=== PATIENT | female | born 1950 ===

== ENCOUNTER → 2023-10-24 11:25 | Outpatient (BNV) | payer MEDICARE, SELFPAY | PROVIDERS: Visit Provider Internal Medicine Medical Oncology | DX: C34.92 Malignant neoplasm of unspecified part of left bronchus or lung (principal); Z85.3 Personal history of malignant neoplasm of breast; Z90.12 Acquired absence of left breast and nipple; Z92.3 Personal history of irradiation | CPT/HCPCS: 99204; 99213; 99214 ==

== ENCOUNTER 2023-11-14 13:40 | Inpatient (IN) | payer MEDICARE, MEDICAID, SELFPAY ==
[2023-11-14] VITALS (10 sets, daily range): BP systolic 140–175; BP diastolic 50–83; PULSE 55–62; RESP 10–18; TEMP 36.6–36.9; O2SAT 99–100; BMI 31.3
--- NOTE | ~2023-11-14 | XR_ITS ---
EXAMINATION: XR CHEST CLINICAL INFORMATION: Shortness of breath COMPARISON: None available. TECHNIQUE: Frontal view of the chest was obtained. FINDINGS: No significant abnormality is noted involving the heart, lungs, mediastinum, bony thorax or soft tissues. XR/XR chest 1V IMPRESSION: Unremarkable examination. Electronically signed by: Pamella Zapien MD 11/14/2023 02:51 PM EDT
--- NOTE | 2023-11-14 13:56 | ED_ITS ---
HPI - General Adult General Chief complaint: Recheck/Abnormal Lab/Rx Stated complaint: critical labs Time Seen by Provider: 11/14/23 13:55 Source: patient and EMS Mode of arrival: EMS Limitations: no limitations History of Present Illness ED Provider: Hien Morin PA-C HPI narrative: Patient is a 72 year old assigned female at with a history of anxiety, CKD, HLD, HTN, lung cancer, breast cancer, hepatitis C, and chronic oxygenation presenting to the emergency department today with abnormal labs. Patient states that she follows with Dr. Jesus for monthly chemo for her lung cancer. Patient states that she was told her blood counts are low today. Patient states that she is in chronic chest pain that she gets dilaudid for. Patient states that she has been anemic before and needed blood transfusions. Patient denies any dizziness, lightheadedness, abdominal pain, nausea, vomiting, fever, chills, blurry vision, double vision, loss of vision, new chest pain, difficulty breathing, shortness of breath, back pain, night sweats, pain with urination, increased urinary frequency, increased urinary urgency, blood in her urine or stool, syncope or a near syncopal episode, recent trauma or falls, bowel incontinence, bladder incontinence, or any other complaints at this time. Relieving factors: none Exacerbating factors: none Associated symptoms: denies other symptoms Treatments prior to arrival: none Related Data Allergies Allergy/AdvReac Type Severity Reaction Status Date / Time carisoprodol [From Soma] Allergy Rash Verified 11/14/23 13:51 codeine Allergy Itching Verified 11/14/23 13:51 Review of Systems 2 Constitutional: Constitutional: Reports no additional constitutional complaints, Denies chills, Denies fever(s) and Denies night sweats Eyes: Eyes: Reports no additional eye complaints, Denies blurry vision, Denies change in vision, Denies diplopia, Denies eye discharge, Denies loss of vision and Denies eye pain ENT: Denies dizziness Cardiovascular: Cardiovascular: Reports no additional cardiovascular complaints, Reports chest pain (chronic), Denies lightheadedness, Denies Loss of Consciousness and Denies dyspnea Respiratory: Respiratory: Reports no additional respiratory complaints and Denies dyspnea Comments: on oxygen via nasal canula per baseline Gastrointestinal: Gastrointestinal: Reports no additional gastrointestinal complaints, Denies abdominal pain, Denies melena, Denies hematochezia, Denies change in bowel habits and Denies change in stool character Genitourinary: Genitourinary: Denies hematuria, Denies urinary frequency, Denies dysuria, Denies urinary incontinence, Denies urinary hesitancy and Denies urinary urgency Musculoskeletal: Musculoskeletal: Reports no additional musculoskeletal complaints, Denies numbness and Denies tingling Neurologic: Denies dizziness, Denies loss of vision, Denies numbness and Denies tingling Psychiatric: Psychiatric: Reports no additional psychiatric complaints Endocrine: Endocrine: Reports no additional endocrine complaints Hematologic/Lymphatic: Hematologic/Lymphatic: Reports no additional hematologic/lymphatic complaints Allergic/Immunologic: Allergic/Immunologic: Reports no additional allergic/immunologic complaints [facility] Past Medical History Attestation statement: The following information was validated with the patient. Source: old records reviewed and nursing notes reviewed Social History Social History Alcohol intake: former Smoked in Last 30 Days: No Use of substances other than those prescribed or required for medical reasons: No Advance Directives: No Advance Directives Information Provided: No Do you have a plan to hurt others: No Plan Physical Exam ED Vital Signs: Vital Signs - 24 hr 11/14/23 13:44 11/14/23 13:53 Temperature 98.2 F 98.2 F Pulse Rate 55 55 Respiratory Rate 18 18 Blood Pressure 163/63 H 163/63 H Pulse Oximetry 100 100 Oxygen Delivery Method Nasal Cannula Nasal Cannula BMI result Body Mass Index 30.0 Const General: cooperative, no acute distress, alert and awake Nutritional Appearance: well nourished Orientation/consciousness: patient oriented x3 Limitations: no limitations HENNE Other: thin wisps of hair Head: Yes normal to inspection and Yes atraumatic Ears: hearing grossly normal bilaterally and external ears normal General nose exam: Normal external nose present, no nasal discharge noted and no epistaxis Face and sinus: Yes normal facial exam, No abrasion and No laceration Mouth: Normal oral and palatal mucosa present, no drooling and no muffled voice Eyes General: appearance normal, both eyes and all related structures Periorbital: periorbital findings normal Eyelids: Yes eyelids normal Conjunctivae: conjunctivae normal Pupils: Equal, round and reactive pupils present EOM: EOMs intact bilaterally Neck Neck: Yes normal visual inspection, Yes full ROM and Yes no lymphadenopathy Chest Chest palpation & inspection: normal inspection of the chest Resp Other: on oxygenation via nasal canula - chronic Effort & Inspection: normal respiratory effort and able to speak in complete sentences GI Inspection: Yes normal to inspection Neuro General: patient oriented x3 and moves all extremities Cranial nerves: Yes Equal, round and reactive pupils present Cognition (Neuro): normal cognition Extrem General: Yes normal to inspection, Yes full ROM and Yes capillary refill normal Psych Appearance: grossly normal Mental Status: mental status grossly normal Affect: normal affect Attitude: cooperative Thought process: Normal thought process present Thought content: Normal thought content present Insight: Good insight present (Psych) Medications Administered Discontinued Medications Generic Name Dose Route Start Last Admin Trade Name Freq PRN Reason Stop Dose Admin Hydromorphone HCl 1 mg 11/14/23 14:44 11/14/23 14:51 Hydromorphone Hcl 1 Mg/Ml Syringe IVPUSH 11/14/23 14:45 1 mg ONCE ONE Administration Protocol Medical Decision Making Medical Decision Making MDM Narrative: Patient is a 72 year old assigned female at with a history of anxiety, CKD, HLD, HTN, lung cancer, breast cancer, hepatitis C, and chronic oxygenation presenting to the emergency department today with abnormal labs. Patient's blood work showed multiple abnormalities including a WBC count of 0.8, HGB of 5.7, HCT of 17.7, PLT of 27, CR of 2.23, BUN of 56. Patient's EKG was unremarkable. Patient's chest x-ray showed no acute process. I spoke to Dr. Jesus who agreed to blood transfusion with non irradiated blood. I spoke to the hospitalist team who agreed to admission. Patient was given a unit of blood while in the department. I explained my physical exam findings as well as all test results to the patient. I answered all questions asked by the patient. Patient verbalized agreement and understanding with this treatment plan and admission. Differential Diagnosis Differential Diagnoses: The differential diagnosis associated with the presentation includes Anemia requiring transfusion Admission/Observation Consideration of admission/observation: Escalation of care including admission/observation considered Patient admitted. Consult Healthcare Provider Management of the patient was discussed with: Hospitalist (agreed to admission as noted in the MDM Rationale portion of this note.) and Personal Lines Account Executive (spoke to Dr. Jesus as noted in the MDM Rationale portion of this note.) Lab Data [facility] Lab Attestation statement: I reviewed the patient's lab results. My interpretation of these results are in the MDM Rationale portion of this note. 11/14/23 14:13 11/14/23 14:13 Labs: Lab Results 11/14/23 11/14/23 Range/Units 14:13 14:28 WBC 0.8 L* (4.8-10.8) X10*3/uL RBC 2.05 L (4.20-5.50) X10*6/uL Hgb 5.7 L* (12.0-16.0) g/dl Hct 17.7 L* (37.0-47.0) % MCV 86.3 (80.0-98.0) fL MCH 27.8 (27.0-33.0) pg MCHC 32.2 (31.0-35.0) g/dl RDW 14.4 (11.0-16.0) % Plt Count 27 L (160-400) X10*3/uL MPV 11.6 (9.4-12.3) fL Immature Gran % (Auto) Cancelled Neut % (Auto) Cancelled Lymph % (Auto) Cancelled [place] % (Auto) Cancelled Eos % (Auto) Cancelled Baso % (Auto) Cancelled Lymph # (Auto) Cancelled [place] # (Auto) Cancelled Eos # (Auto) Cancelled Baso # (Auto) Cancelled Abs Immat Gran (auto) Cancelled Absolute Neuts (auto) Cancelled Absolute Nucleated RBC 0.000 (0.0-0.012) X10*3/uL Nucleated RBC % (auto) 0.0 (0.0-0.2) /100WBC Neutrophils % (Manual) 6 L (45-73) % Band Neutrophils % 4 (3-5) % Lymphocytes % (Manual) 84 H (20-40) % Eosinophils % (Manual) 6 H (0-4) % Abs Neuts (Manual) 0.1 L (2.0-8.3) X10*3/uL Lymphocytes # (Manual) 0.7 L (1.2-4.9) X10*3/uL Dohle Bodies PRESENT Platelet Estimate DECREASED (NORMAL) Plt Morphology Comment NORMAL RBC Morphology NOTED Hypochromasia 1+ (5-14) /OIF PT 12.8 (11.1-13.3) SEC INR 1.1 (0.9-1.1) APTT 30.0 (26.0-36.8) SEC Sodium 139 (135-145) mmol/L Potassium 4.7 (3.3-5.1) mmol/L Chloride 112 H (96-108) mmol/L Carbon Dioxide 21 L (22-29) mmol/L Anion Gap 11 L (12-20) BUN 56 H (9-16) mg/dL Creatinine 2.23 H (0.5-1.4) mg/dL Estim Creat Clear Calc 19.2 Estimated GFR 21 Random Glucose 108 (60-115) mg/dL Calcium 9.3 (8.4-10.2) mg/dL Magnesium 2.0 (1.6-2.6) mg/dL Total Bilirubin 0.2 (0.0-1.0) mg/dL AST 9 (5-31) U/L ALT 7 (0-31) U/L Alkaline Phosphatase 61 (39-117) U/L Total Protein 5.1 L (6.5-8.0) g/dL Albumin 2.7 L (3.5-5.0) g/dL Influenza Type A (PCR) NEGATIVE (Negative) Influenza Type B (PCR) NEGATIVE (Negative) RSV RNA Qual (PCR) NEGATIVE (Negative) SARS-CoV-2 RNA (RT-PCR) NEGATIVE (Negative) Blood Type A Positive Antibody Screen NEGATIVE Crossmatch See Detail Independent Interpretation I performed an independent interpretation of an: EKG and Plain X-Ray Interpretation: My interpretation is in agreement with the radiologist's impression of this imaging study. - EXAMINATION: XR CHEST CLINICAL INFORMATION: Shortness of breath COMPARISON: None available. TECHNIQUE: Frontal view of the chest was obtained. FINDINGS: No significant abnormality is noted involving the heart, lungs, mediastinum, bony thorax or soft tissues. XR/XR chest 1V IMPRESSION: Unremarkable examination. Electronically signed by: Pamella Zapien MD 11/14/2023 02:51 PM EDT RP Dictated By: Pamella Zapien MD Signed By: Electronically signed by Pamella Zapien MD 11/14/23 1451 - Vent. Rate: 057 BPM Atrial Rate: 057 BPM P-R Int: 148 ms QRS Dur: 110 ms QT Int: 446 ms P-R-T Axes: 067 013 025 degrees QTc Int: 434 ms Sinus bradycardia Left ventricular hypertrophy with repolarization abnormality ( R in aVL , [place] product ) Abnormal ECG No previous ECGs available Electronically Signed By:LYNN COHN Dictated By: Lynn Hicks DO Signed By: Electronically signed by Lnyn Hicks DO 11/14/23 1456 Radiology Impression Discussion of test interpretation with radiology: I have reviewed the radiologist's reading. Independent Historian Clinical information obtained from an independent historian. History obtained from or confirmed by: EMS (EMS provided additional history and confirmed the history provided by the patient.) Critical Care Time Critical Care Time Critical Care Time: Yes Total Critical Care Time: 52 Attestation: I spent 52 minutes of Critical Care Time with this patient. This does not include time spent on separately reported billable procedures. Discharge Plan Discharge Clinical Impression: Anemia, Leukopenia Patient Disposition: Admitted As Inpatient Print Language: Hungarian
--- NOTE | 2023-11-14 13:59 | ECG_ITS ---
Test Reason : weakness Blood Pressure : / mmHG Vent. Rate : 057 BPM Atrial Rate : 057 BPM P-R Int : 148 ms QRS Dur : 110 ms QT Int : 446 ms P-R-T Axes : 067 013 025 degrees QTc Int : 434 ms Sinus bradycardia Left ventricular hypertrophy with repolarization abnormality ( R in aVL , [place] product ) Abnormal ECG No previous ECGs available Referred By: Hien Morin Electronically Signed By:LYNN GEORGE
[2023-11-14 14:25] LABS: Mean Corpuscular HGB Conc 32.2 g/dl (31.0-35.0); Mean Corpuscular Hemoglobin 27.8 pg (27.0-33.0); Mean Corpuscular Volume 86.3 fL (80.0-98.0); Mean Platelet Volume 11.6 fL (9.4-12.3); Red Blood Count 2.05 X10*6/uL (4.20-5.50); Red Cell Distribution Width 14.4 % (11.0-16.0)
[2023-11-14 14:30] LABS: INTERNATIONAL NORM RATIO 1.1 (0.9-1.1); Prothrombin Time 12.8 SEC (11.1-13.3)
[2023-11-14 14:33] LABS: Hematocrit 17.7 % (37.0-47.0); Platelet Count 27 X10*3/uL (160-400); WBC ABN SCTR FOR CBC 1
[2023-11-14 14:34] LABS: Hemoglobin 5.7 g/dl (12.0-16.0)
[2023-11-14 14:39] LABS: Alanine Aminotransferase 7 U/L (0-31); Albumin Level 2.7 g/dL (3.5-5.0); Alkaline Phosphatase 61 U/L (39-117); Anion Gap 11 (12-20); Aspartate Amino Transferase 9 U/L (5-31); Bilirubin Total 0.2 mg/dL (0.0-1.0); Blood Urea Nitrogen 56 mg/dL (9-16); Calcium 9.3 mg/dL (8.4-10.2); Carbon Dioxide 21 mmol/L (22-29); Chloride 112 mmol/L (96-108); Creatinine Clr Calc Pharmacy 19.2; Estimated Glomerular Filt Rate 21; Glucose Random 108 mg/dL (60-115); Potassium 4.7 mmol/L (3.3-5.1); Sodium 139 mmol/L (135-145); Total Protein 5.1 g/dL (6.5-8.0)
[2023-11-14 14:43] LABS: White Blood Count 0.8 X10*3/uL (4.8-10.8)
[2023-11-14 14:51] LABS: Band Neutrophils Percent 4 % (3-5); Eosinophils Percent Manual 6 % (0-4); Lymphocytes Absolute Manual 0.7 X10*3/uL (1.2-4.9); Lymphocytes Percent Manual 84 % (20-40); Neutrophils Absolute Manual 0.1 X10*3/uL (2.0-8.3); Neutrophils Percent Manual 6 % (45-73)
[2023-11-14] MEDS: HYDROmorphone HCl 1 MG/ML SYRINGE IVPUSH ×2 (14:51→16:54)
[2023-11-14 14:52] LABS: RBC Morphology NOTED
[2023-11-14 14:53] LABS: Dohle Bodies PRESENT; Hypochromasia 1+ (5-14) /OIF; Platelet Estimate DECREASED (NORMAL); Platelet Morphology Comment NORMAL
[2023-11-14 15:10] LABS: Influenza A PCR NEGATIVE (Negative); Influenza B PCR NEGATIVE (Negative); Resp Syncy Virus RNA Qual PCR NEGATIVE (Negative); SARS COV2 PCR INHOUSE NEGATIVE (Negative)
--- NOTE | 2023-11-14 15:47 | PM.IMHP ---
History of Present Illness Date of Service: 11/14/23 Attending physician on admission: Brooke Chou Chief Complaint: Abnormal labs Pt is a 72-year-old female with a PMH significant for small cell lung cancer, chronic chest pain on chronic hydromorphone, breast cancer s/p partial mastectomy and radiation, HTN, CKD 4, and IBS/chronic diarrhea who presents to the ED from [facility] after routine labs found significant pancytopenia. Pt was recently diagnosed with extensive small cell lung cancer 4 months prior and started on chemotherapy of carboplatin, etoposide, and atezolizumab with last treatment on 11/04. Previously followed with [facility] oncology but recently switched to [facility] due to insurance issues. Follows with Dr. Jesus. Patient states has been urinating more than normal and feeling some urinary pressure , though denies dysuria. Otherwise feels ?good? without acute medical complaints. Has had chronic diarrhea for the past 7 years, at baseline. Chronic SOB, cough, and right-sided chest pain at baseline. No fever, chills, N/V. Denies headache, lightheadedness, or dizziness. Denies hematochezia, melena, hematemesis, or hemoptysis. Of note, patient reports she was hospitalized a few months ago at [facility] for transfusion after starting her current chemotherapy. In the ED pt was hypertensive up to 163/63 in the HR of 55. Labs were significant for leukopenia of 0.8, H&H of 5.7/17.7, platelets 27, BUN 56, creatinine 2.23, protein 5.1, and albumin 2.7. Tested negative for flu, RSV, and COVID. CXR showed no acute cardiopulmonary process. EKG demonstrated sinus bradycardia of 57 with left ventricular hypertrophy. Pt was treated with hydromorphone and transfused 1 unit PRBCs. Pt will be admitted to the hospital for treatment and further evaluation of pancytopenia requiring transfusion in the setting of chemotherapy. Review of Systems Review of Systems: Polyuria, urinary pressure Denies dysuria Chronic SOB and cough at baseline Chronic diarrhea at baseline Chronic right-sided chest pain at baseline No fever, chills, N/V or abd pain Denies lgihtheadedness or dizziness No hematemesis, hemoptysis, hematochezia, or melena [facility] Medical History (Updated 11/14/23 @ 18:31 by BRANDON Nair) Chronic diarrhea CKD (chronic kidney disease) Breast cancer HTN (hypertension) Social History Alcohol intake: former Meds Allergies Allergy/AdvReac Type Severity Reaction Status Date / Time carisoprodol [From Soma] Allergy Rash Verified 11/14/23 13:51 codeine Allergy Itching Verified 11/14/23 13:51 Home Medications ?Medication ?Instructions ?Recorded ?Confirmed ?Last Taken ?Type acetaminophen 325 mg tablet 650 mg PO Q8H PRN Pain 11/14/23 11/14/23 Unknown History aspirin 81 mg tablet,delayed 81 mg PO DAILY 11/14/23 11/14/23 Unknown History release bisacodyl 10 mg rectal suppository 10 mg LA DAILY PRN Constipation 11/14/23 11/14/23 Unknown History carvedilol 12.5 mg tablet 12.5 mg PO BID 11/14/23 11/14/23 Unknown History folic acid 1 mg tablet 1 mg PO DAILY 11/14/23 11/14/23 Unknown History hydralazine 100 mg tablet 100 mg PO BID 11/14/23 11/14/23 Unknown History hydromorphone 2 mg tablet 1 mg PO Q4H PRN Pain, Moderate 11/14/23 11/14/23 Unknown History hydromorphone 2 mg tablet 2 mg PO Q4H PRN Pain, Severe 11/14/23 11/14/23 Unknown History ipratropium 0.5 mg-albuterol 3 mg 3 ml inhalation Q4H PRN Shortness 11/14/23 11/14/23 Unknown History (2.5 mg base)/3 mL nebulization Of Breath soln ipratropium 0.5 mg-albuterol 3 mg 3 ml inhalation QID 11/14/23 11/14/23 Unknown History (2.5 mg base)/3 mL nebulization soln loperamide 2 mg capsule 2 mg PO Q3H PRN Loose Stool 11/14/23 11/14/23 Unknown History magnesium hydroxide 400 mg/5 mL 30 ml PO DAILY PRN Constipation 11/14/23 11/14/23 Unknown History oral suspension (Milk of Magnesia) ondansetron HCl 8 mg tablet 8 mg PO Q8H PRN Nausea And Vomiting 11/14/23 11/14/23 Unknown History polyethylene glycol 3350 17 17 g PO DAILY 11/14/23 11/14/23 Unknown History gram/dose oral powder (Miralax) sennosides 8.6 mg tablet (senna) 17.2 mg PO BEDTIME 11/14/23 11/14/23 Unknown History sodium phosphates 19 gram-7 118 ml LA DAILY PRN Constipation 11/14/23 11/14/23 Unknown History gram/118 mL enema (Fleet Enema) thiamine HCl (vitamin B1) 100 mg 100 mg PO DAILY 11/14/23 11/14/23 Unknown History tablet trazodone 100 mg tablet 100 mg PO BEDTIME 11/14/23 11/14/23 Unknown History trazodone 50 mg tablet 50 mg PO BEDTIME 11/14/23 11/14/23 Unknown History Physical Exam Vital Signs and Narrative: Vital Signs: Last Vital Signs Temp 98.2 F 11/14/23 13:53 Pulse 55 11/14/23 13:53 Resp 18 11/14/23 13:53 BP 163/63 H 11/14/23 13:53 Pulse Ox 100 11/14/23 13:53 O2 Del Method Nasal Cannula 11/14/23 13:53 Oxygen Flow Rate 2 11/14/23 13:44 BMI result Body Mass Index 30.0 General: AOx3, no acute distress Resp: Lungs diffusely coarse bilaterally, diminished. CVS: S1, S2, RRR GI: +BS, NT, no distention Skin: Warm, dry Neuro: Cranial nerves II-XII grossly intact bilaterally. Motor grossly intact bilaterally Extremities: No edema Psych: Appropriate affect Results Labs 11/14/23 14:13 11/14/23 14:13 Labs: Laboratory Results - last 24 hr 11/14/23 11/14/23 14:13 14:28 MCV 86.3 MCH 27.8 MCHC 32.2 RDW 14.4 Plt Count 27 L MPV 11.6 Immature Gran % (Auto) Cancelled Neut % (Auto) Cancelled Lymph % (Auto) Cancelled [place] % (Auto) Cancelled Eos % (Auto) Cancelled Baso % (Auto) Cancelled Lymph # (Auto) Cancelled [place] # (Auto) Cancelled Eos # (Auto) Cancelled Baso # (Auto) Cancelled Abs Immat Gran (auto) Cancelled Absolute Neuts (auto) Cancelled Absolute Nucleated RBC 0.000 Nucleated RBC % (auto) 0.0 Neutrophils % (Manual) 6 L Band Neutrophils % 4 Lymphocytes % (Manual) 84 H Eosinophils % (Manual) 6 H Abs Neuts (Manual) 0.1 L Lymphocytes # (Manual) 0.7 L Dohle Bodies PRESENT Platelet Estimate DECREASED Plt Morphology Comment NORMAL RBC Morphology NOTED Hypochromasia 1+ (5-14) PT 12.8 INR 1.1 APTT 30.0 Anion Gap 11 L Estim Creat Clear Calc 19.2 Estimated GFR 21 Random Glucose 108 Calcium 9.3 Magnesium 2.0 Total Bilirubin 0.2 AST 9 ALT 7 Alkaline Phosphatase 61 Total Protein 5.1 L Albumin 2.7 L Influenza Type A (PCR) NEGATIVE Influenza Type B (PCR) NEGATIVE RSV RNA Qual (PCR) NEGATIVE SARS-CoV-2 RNA (RT-PCR) NEGATIVE Blood Type A Positive Antibody Screen NEGATIVE Crossmatch See Detail Imaging Radiologist's Impressions: Impressions Chest X-Ray 11/14/23 13:59 IMPRESSION: Unremarkable examination. Electronically signed by: Pamella Zapien MD 11/14/2023 02:51 PM EDT RP Assessment and Plan (1) Small cell carcinoma of lung: Status: Acute (2) Pancytopenia: Status: Acute Plan Pt is a 72-year-old female with a PMH significant for small cell lung cancer, chronic chest pain on chronic hydromorphone, breast cancer s/p partial mastectomy and radiation, HTN, CKD 4, and IBS/chronic diarrhea who presents to the ED from [facility] after routine labs found significant pancytopenia. Pt will be admitted to the hospital for treatment and further evaluation of pancytopenia requiring transfusion in the setting of chemotherapy. Pancytopenia WBCs 0.8, H&H 5.7/17.7, neutrophils 6 Absolute neutrophil count: 80 cells/microliter Secondary to chemotherapy for small cell lung cancer, follows with Dr. Jesus On carboplatin, etoposide, and atezolizumab with last infusion 11/04 Reports 1 prior hospitalization at [facility] 2 months ago for transfusion Patient asymptomatic, no reported bleeding, denies fever, cough, abdominal pain No indication for antibiotics at this time Transfused 2 units of PRBCs in the ED Oncology consult Neutropenic precautions Follow CBC Polyuria Pt complains of polyuria and urinary pressure Denies dysuria Check UA which is pending Chronic chest pain Secondary to small cell lung cancer Continue home p.o. hydromorphone HTN Continue carvedilol, hydralazine COPD Not in acute exacerbation Continue home inhalers Chronic diarrhea Continue loperamide Full Code Attending:?Dr. Chou DVT Prophylaxis: Pneumatic compression due to pancytopenia. Pt will require a hospitalization of at least two nights for treatment of?pancytopenia secondary to chemotherapy for non-small cell lung cancer that will require transfusions, close monitoring of labs, and neutropenic precautions. Quality Stroke Does the patient have a stroke diagnosis?: No VTE Prior VTE?: No VTE Risk Level:: Medical - moderate - high VTE Device Contraindication: N/A - Device Ordered VTE Drug Contraindication: Treatment Not Indicated
--- NOTE | 2023-11-14 16:32 | PHA.MEDREC ---
Addendum entered by Liane Baldwin RPh 11/14/23 16:42: Reviewed by [facility] Original Note: Pharmacy Consult ? Medication Reconciliation Pharmacy has completed the medication reconciliation. Utilized claims and list from [facility] to confirm med list.
--- NOTE | 2023-11-14 18:01 | PM.HEMONCCN ---
Subjective - Subjective Chief complaint: Consult for: Neutropenia. Anemia. Small-cell lung carcinoma Patient: known to practice within the last 3 years Consult date: 11/14/23 Requesting Physician: Fox Primary Care Provider: Unknown Physician Family Provider: Eleazar Le Medical Summary: DIAGNOSIS: SMALL-CELL CARCINOMA OF THE LUNG. NEUTROPENIA. ANEMIA. HPI - Consult Narrative Reason for consult: Consult for: Small-cell carcinoma of the lung. Leukopenia. Anemia. Narrative: Anna Crawford is a 72 year old unfortunate lady with a PMH of small cell lung cancer, who received carboplatin, etoposide and atezolizumab on 11/04. She was noted to be hypertensive up to 163/63 in the HR of 55. DATABASE: Leukopenia of 0.8, H&H of 5.7/17.7, platelets 27, CMP: BUN 56, creatinine 2.23, protein 5.1, and albumin 2.7. Negative for flu, RSV, and COVID. CXR showed no acute cardiopulmonary process. EKG demonstrated sinus bradycardia of 57 with left ventricular hypertrophy. Pt was treated with hydromorphone and transfused 1 unit PRBCs. Pt is being admitted to the hospital. PAST MEDICAL HISTORY: SMALL-CELL CARCINOMA OF THE LUNG: She was originally admitted to [facility] in August. She was discharged on 08/27 due to insurance issues, she was not able to follow-up with [facility]. She was referred to [facility] but could not make it to the appointment. On 09/17 she presented to [facility] ED with worsening shortness of breath. She also complained of severe left-sided chest pain. She had chronic diarrhea. Chest x-ray showed increased opacification of the left chest consistent with major consolidation of the left upper lobe with left pleural effusion. She had chest tube placed. She was placed on BiPAP given respiratory distress. She was admitted to [facility] 09/18/2023 with shortness of breath. CT scan revealed: No evidence of PE. New small right apical pneumothorax. Slightly improved aeration the left upper lobe with persistent masslike opacity and surrounding patchy and ground-glass opacities, consistent with known carcinoma. Narrowing of the left upper lobe bronchus and segmental airways likely due to encasement by the mask. Near resolution of the left pleural effusion status post left pleural drainage catheter. Increasing mediastinal and bilateral supraclavicular adenopathy concerning for progression of disease. Pleural fluid cytology was positive for small-cell carcinoma. She underwent chemotherapy with Carbo and etoposide while inpatient in mid September. 2. HYPERTENSION. 3. DIABETES. 4. CKD. 5. ASTHMA. 6. HCV. 7. HISTORY OF RIGHT BREAST CANCER STATUS POST PARTIAL MASTECTOMY IN 2016. STATUS POST XRT COMPLET[place] [address] Apple.. 8. Previous history of squamous cell carcinoma of the right lung. 9. Had COVID infection end of August. 10. Chronic chest pain on chronic hydromorphone, 11. Breast cancer, 12. HLD, 13. Chronic diarrhea who presents to the ED from [facility] HISTORY: Noncontributory. SOCIAL HISTORY: She did different or jobs. 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 She is not . She has 1 son. She smoked a pack-a-day starting age 18. She quit 2 years ago. She used to drink when she went out with her friends. ROS: She has been feeling really fatigued. She does walk sometimes with and sometimes without the help of a walker. No fever chills or night sweats. No headache no dizziness. She does get chest pain and trouble breathing. She does cough up yellow sputum. Denies abdominal pain nausea vomiting heartburn indigestion. Bowels sometimes gets constipated. No gross blood in the stools. Appetite is not so good. She is trying to eat. She has lost weight. No dysuria or hematuria. No joint pain or muscle pain. She denies any focal weakness. Review of Systems - Constitutional Reports no additional constitutional complaints, Reports lack of energy, Reports weight loss - Eyes Reports no additional eye complaints - ENT Reports no additional ear, nose, mouth, and throat complaints - Cardiovascular Reports no additional cardiovascular complaints - Respiratory Reports no additional respiratory complaints - Gastrointestinal Reports no additional gastrointestinal complaints - Genitourinary Reports no additional female genitourinary complaints - Musculoskeletal Reports no additional musculoskeletal complaints - Integumentary/Breasts Skin/Breast: Reports no additional skin complaints - Neurologic Denies dizziness, Denies loss of vision, Denies numbness, Denies tingling - Psychiatric Reports no additional psychiatric complaints - Endocrine Reports no additional endocrine complaints - Hematologic/Lymphatic Reports no additional hematologic/lymphatic complaints - Allergic/Immunologic Reports no additional allergic/immunologic complaints Oncology Screenings - ECOG Performance Status ECOG Performance Status: 2 [facility] Medical History: Medical History (Last Reviewed 11/15/23 @ 11:20 by Gisel Hendrickson PT) Breast cancer Chronic diarrhea CKD (chronic kidney disease) HTN (hypertension) Social History: Social History (Last Reviewed 11/14/23 @ 15:32 by BRANDON Schneider) Living Situation History: Household Members: Spouse Housing: Shelter Do you presently have visiting nurse or other home services: No Tobacco History: Patient Tobacco Use Status: Former Tobacco user Tobacco use type: Cigarette e-Cigarette/Vaping Use: Never Used Second Hand Smoke Exposure: No Occupation Assessmet: service: No Home Medications and Allergies Current Medications: Current Medications Acetaminophen (Acetaminophen 325 Mg Tablet) 650 mg PO Q6H PRN PRN Reason: Pain, Mild (Pain Scale 1-3), fever or headache Albuterol/Ipratropium (Albuterol/Iprat 2.5/0.5mg 3 Ml Ampul.Neb) 3 ml INHALE Q4H PRN PRN Reason: Shortness Of Breath Albuterol/Ipratropium (Albuterol/Iprat 2.5/0.5mg 3 Ml Ampul.Neb) 3 ml INHALE QID [facility] Aspirin (Aspirin Enteric Coated 81 Mg Tablet.Dr) 81 mg PO DAILY [facility] Benzonatate (Benzonatate 100 Mg Capsule) 100 mg PO TID PRN PRN Reason: Cough Bisacodyl (Bisacodyl 10 Mg Supp.Rect) 10 mg AK DAILY PRN PRN Reason: Constipation Calcium Carbonate (Calcium Carbonate 750 Mg Tab.Chew) 750 mg PO Q4H PRN PRN Reason: Heartburn Carvedilol (Carvedilol 12.5 Mg Tablet) 12.5 mg PO BID [facility]; Protocol Folic Acid (Folic Acid 1 Mg Tablet) 1 mg PO DAILY [facility] Hydralazine HCl (Hydralazine Hcl 50 Mg Tablet) 100 mg PO BID [facility]; Protocol Hydromorphone HCl (Hydromorphone Hcl 2 Mg Tablet) 1 mg PO Q4H PRN PRN Reason: Pain, Moderate(Pain Scale 4-6) Hydromorphone HCl (Hydromorphone Hcl 2 Mg Tablet) 2 mg PO Q4H PRN PRN Reason: Pain, Severe (Pain Scale 7-10) Loperamide HCl (Loperamide Hcl 2 Mg Capsule) 2 mg PO Q3H PRN PRN Reason: Loose Stool Magnesium Hydroxide (Milk Of Magnesia 30 Ml Oral.Susp) 30 ml PO DAILY PRN PRN Reason: Constipation Magnesium Hydroxide (Milk Of Magnesia 30 Ml Oral.Susp) 30 ml PO DAILY PRN PRN Reason: Constipation Melatonin (Melatonin 3 Mg Tablet) 6 mg PO BEDTIME PRN PRN Reason: Insomnia Ondansetron HCl (Ondansetron Hcl 4 Mg/2 Ml Vial) 4 mg IVPUSH Q8H PRN PRN Reason: Nausea and Vomiting Polyethylene Glycol (Polyethylene Glycol 3350 17 Gm Powd.Pack) 17 gm PO DAILY [facility] Senna (Sennosides 8.6 Mg Tablet) 17.2 mg PO BEDTIME SADE Sodium Biphosphate/Sodium Phosphate (Sodium Phosphate,[place]-Dibasic 133 Ml Enema) 118 ml AK DAILY PRN PRN Reason: Constipation Sodium Chloride (0.9 % Sodium Chloride Flush 3 Ml Syringe) 3 ml IVFLUSH QSHIFT SADE Thiamine HCl (Thiamine Hcl 100 Mg Tablet) 100 mg PO DAILY [facility] Trazodone HCl (Trazodone Hcl 50 Mg Tablet) 50 mg PO BEDTIME SADE Trazodone HCl (Trazodone Hcl 100 Mg Tablet) 100 mg PO BEDTIME [facility] Home Medications ?Medication ?Instructions ?Recorded ?Confirmed ?Type acetaminophen 325 mg tablet 650 mg PO Q8H PRN Pain 11/14/23 11/14/23 History aspirin 81 mg tablet,delayed 81 mg PO DAILY 11/14/23 11/14/23 History release bisacodyl 10 mg rectal suppository 10 mg AK DAILY PRN Constipation 11/14/23 11/14/23 History carvedilol 12.5 mg tablet 12.5 mg PO BID 11/14/23 11/14/23 History folic acid 1 mg tablet 1 mg PO DAILY 11/14/23 11/14/23 History hydralazine 100 mg tablet 100 mg PO BID 11/14/23 11/14/23 History hydromorphone 2 mg tablet 1 mg PO Q4H PRN Pain, Moderate 11/14/23 11/14/23 History hydromorphone 2 mg tablet 2 mg PO Q4H PRN Pain, Severe 11/14/23 11/14/23 History ipratropium 0.5 mg-albuterol 3 mg 3 ml inhalation Q4H PRN Shortness 11/14/23 11/14/23 History (2.5 mg base)/3 mL nebulization Of Breath soln ipratropium 0.5 mg-albuterol 3 mg 3 ml inhalation QID 11/14/23 11/14/23 History (2.5 mg base)/3 mL nebulization soln loperamide 2 mg capsule 2 mg PO Q3H PRN Loose Stool 11/14/23 11/14/23 History magnesium hydroxide 400 mg/5 mL 30 ml PO DAILY PRN Constipation 11/14/23 11/14/23 History oral suspension (Milk of Magnesia) ondansetron HCl 8 mg tablet 8 mg PO Q8H PRN Nausea And Vomiting 11/14/23 11/14/23 History polyethylene glycol 3350 17 17 g PO DAILY 11/14/23 11/14/23 History gram/dose oral powder (Miralax) sennosides 8.6 mg tablet (senna) 17.2 mg PO BEDTIME 11/14/23 11/14/23 History sodium phosphates 19 gram-7 118 ml AK DAILY PRN Constipation 11/14/23 11/14/23 History gram/118 mL enema (Fleet Enema) thiamine HCl (vitamin B1) 100 mg 100 mg PO DAILY 11/14/23 11/14/23 History tablet trazodone 100 mg tablet 100 mg PO BEDTIME 11/14/23 11/14/23 History trazodone 50 mg tablet 50 mg PO BEDTIME 11/14/23 11/14/23 History Allergies Allergy/AdvReac Type Severity Reaction Status Date / Time carisoprodol [From Soma] Allergy Rash Verified 11/14/23 13:51 codeine Allergy Itching Verified 11/14/23 13:51 Physical Exam Vital signs: Vital Signs Temp 98.4 F 11/14/23 16:43 Pulse 61 11/14/23 16:43 Resp 16 11/14/23 16:43 BP 149/52 H 11/14/23 16:43 Pulse Ox 100 11/14/23 13:53 O2 Del Method Nasal Cannula 11/14/23 13:53 Intake & Output 11/13/23 11/14/23 11/14/23 18:59 06:59 18:59 Intake Total 0 / 0 Balance 0 / 0 Intake: Intake (Blood Product) Amount 0 / 0 Red Blood Cells (E0336) Unit 0 / 0 [id number] Other: Weight 69.7 kg Weight 69.7 kg - Constitutional Present: moderate distress - Routine HEENT Exam Head: Present: normal inspection, normocephalic Eye: Present: normal appearance ENT: Present: mucous membranes moist - Routine Respiratory Exam Present: decreased breath sounds - Routine Cardiovascular Exam Cardiovascular: Present: S1, S2 - Routine Abdominal Exam Present: soft, nontender - Routine Extremities Exam Present: nontender - Routine Skin Exam Present: intact, normal turgor Hem/Onc Consult Result - Labs CBC & Chem 7: 11/15/23 05:29 11/15/23 05:28 Labs: Short CBC 11/14/23 Range/Units 14:13 WBC 0.8 L* (4.8-10.8) X10*3/uL Hgb 5.7 L* (12.0-16.0) g/dl Hct 17.7 L* (37.0-47.0) % Plt Count 27 L (160-400) X10*3/uL BMP 11/14/23 14:13 Sodium 139 Potassium 4.7 Chloride 112 H Carbon Dioxide 21 L BUN 56 H Creatinine 2.23 H Calcium 9.3 Liver Function 11/14/23 Range/Units 14:13 Total Bilirubin 0.2 (0.0-1.0) mg/dL AST 9 (5-31) U/L ALT 7 (0-31) U/L Alkaline Phosphatase 61 (39-117) U/L Albumin 2.7 L (3.5-5.0) g/dL Assessment and Plan Patient Active problem list reviewed?: Yes (1) Small cell carcinoma of hilum of lung Status: Acute (2) Small cell carcinoma of lung Status: Acute Assessment and plan: This is a pleasant 72-year-old, with recent diagnosis of small-cell carcinoma of the lung, extensive stage disease. Patient previously has had: 1. Breast cancer. 2. Squamous cell carcinoma of the lung. 3. HCC. On 09/17 she presented to [facility] ED with worsening shortness of breath. She also complained of severe left-sided chest pain. She had chronic diarrhea. Chest x-ray showed increased opacification of the left chest consistent with major consolidation of the left upper lobe with left pleural effusion. She had chest tube placed. She was placed on BiPAP given respiratory distress. She was admitted to [facility] 09/18/2023 with shortness of [address]. CT scan revealed: No evidence of PE. New small right apical pneumothorax. Slightly improved aeration the left upper lobe with persistent masslike opacity and surrounding patchy and ground-glass opacities, consistent with known carcinoma. Narrowing of the left upper lobe bronchus and segmental airways likely due to encasement by the mask. Near resolution of the left pleural effusion status post left pleural drainage catheter. Increasing mediastinal and bilateral supraclavicular adenopathy concerning for progression of disease. Pleural fluid cytology was positive for small-cell carcinoma. She underwent chemotherapy with Carbo and etoposide while inpatient in mid September. Between 09/19 and 09/21. She has now been referred here for insurance reasons. I offered continuing her treatment here. She and her son were willing. She was started on carboplatin, etoposide and atezolizumab on 11/08/2023. She was referred for pulmonary evaluation for her advanced COPD. Her hemoglobin was noted to be low. She was actually given a blood transfusion, couple of weeks ago. She has now been admitted with neutropenia and significant anemia. PLAN: She will most likely need 3 units of packed RBCs, to help improve her oxygen carrying capacity. Will give her a trial of G-CSF to help expedite the white cell count recovery. (WBC improved to 1.0.) She can be covered for broad-spectrum enteric Gram-negative coverage in case of fever> 100.5. Can transfuse platelets if count drops to less than 10 or for any systemic bleeding. She will be re-staged with a CT scan after completion of 3 cycles. She will be seen in Oncology office next week. Thank you, CC: Dr. David Le. - Time Spent With Patient Time Spent with Patient (in minutes): 30
--- NOTE | 2023-11-14 19:48 | PC.NURSE ---
second transfusion started, pt tolerating well at this time
[2023-11-14] MEDS: Tbo-Filgrastim 300 MCG/0.5 ML SYRINGE SUBCUT (21:12)
[2023-11-14] MEDS: traZODone HCL 50 MG TABLET PO (21:14)
[2023-11-14] MEDS: traZODone HCL 100 MG TABLET PO (21:14)
[2023-11-14] MEDS: Loperamide HCl 2 MG CAPSULE PO (21:15)
[2023-11-14] MEDS: hydrALAZINE HCl 50 MG TABLET 100 MG PO (21:15)
--- NOTE | 2023-11-14 21:34 | PC.NURSE ---
carvediol not given d/t low HR, Senokot refused, chronic diarrhea at baseline. PRN immodium given per request. MD messaged for increase in pain medications
[2023-11-14] MEDS: Calcium Carbonate 750 MG TAB.CHEW PO (21:42)
[2023-11-14] MEDS: HYDROmorphone HCl 2 MG TABLET 3 MG PO (21:45)
[2023-11-15 04:00] VITALS: BP 173/71; PULSE 63; RESP 20; TEMP 36.7; O2SAT 99
[2023-11-15] MEDS: Loperamide HCl 2 MG CAPSULE PO ×4 (04:43→16:49)
[2023-11-15 06:37] LABS: Anion Gap 13 (12-20); Blood Urea Nitrogen 51 mg/dL (9-16); Calcium 9.1 mg/dL (8.4-10.2); Carbon Dioxide 17 mmol/L (22-29); Chloride 114 mmol/L (96-108); Estimated Glomerular Filt Rate 24; Glucose Random 87 mg/dL (60-115); Potassium 4.5 mmol/L (3.3-5.1); Sodium 139 mmol/L (135-145)
[2023-11-15 06:48] LABS: Hematocrit 24.9 % (37.0-47.0); Hemoglobin 8.3 g/dl (12.0-16.0); Mean Corpuscular HGB Conc 33.3 g/dl (31.0-35.0); Mean Corpuscular Hemoglobin 29.3 pg (27.0-33.0); Mean Platelet Volume 12.8 fL (9.4-12.3); Red Blood Count 2.83 X10*6/uL (4.20-5.50); Red Cell Distribution Width 14.1 % (11.0-16.0)
[2023-11-15 06:58] VITALS: BP 162/72; PULSE 61; RESP 16; TEMP 37; O2SAT 99
[2023-11-15 07:01] LABS: Platelet Count 22 X10*3/uL (160-400)
[2023-11-15] MEDS: Albuterol/Iprat 2.5/0.5MG 3 ML AMPUL.NEB INHALE (07:48)
[2023-11-15 07:50] VITALS: PULSE 84; RESP 18; O2SAT 99
[2023-11-15] MEDS: HYDROmorphone HCl 2 MG TABLET 3 MG PO ×3 (08:32→16:49)
[2023-11-15] MEDS: Folic Acid 1 MG TABLET PO (08:33)
[2023-11-15] MEDS: Aspirin Enteric Coated 81 MG TABLET.DR PO (08:33)
[2023-11-15] MEDS: 0.9 % Sodium Chloride Flush 3 ML SYRINGE IVFLUSH (08:33)
[2023-11-15] MEDS: carvediloL 12.5 MG TABLET PO (08:33)
[2023-11-15] MEDS: Thiamine HCL 100 MG TABLET PO (08:33)
[2023-11-15] MEDS: hydrALAZINE HCl 50 MG TABLET 100 MG PO (08:33)
--- NOTE | 2023-11-15 10:42 | MHC.CM.PN ---
IMM DELIVERED. PT IS CURRENTLY AT PT AT [facility] AND HER PLAN IS TO RETURN. RETURN REFERRAL SENT TO INQUIRE IF A NEW P.T. EVAL IS NEEDED. AWAITING RESPONSE. PT USES [facility] FOR MOBILITY. COPY OF HCP REQUESTED AND PCP IN COMMUNITY IS DR. SHELIA ARRIETA. DP: GOAL IS TO RETURN TO [facility], RETURN REFERRAL SENT. PT WILL NEED BLS TRANSPORT. CM WILL CONTINUE TO FOLLOW FOR ANY CHANGE TO DC PLAN/NEEDS.
[2023-11-15 11:20] VITALS: PULSE 84
[2023-11-15] MEDS: Tbo-Filgrastim 300 MCG/0.5 ML SYRINGE SUBCUT (13:41)
--- NOTE | 2023-11-15 14:21 | MHC.CM.PN ---
DP: PT HAS BEEN MEDICALLY CLEARED FOR DC BACK TO [facility] AT [facility]. RN/PROVIDER AWARE. CENTER UPDATED. BLS TRANSPORT BOOKED FOR 5 PM VIA [facility]. PT STATES SHE WILL UPDATE HER SON.
--- NOTE | 2023-11-15 14:29 | P.DS_ITS ---
DS: Providers Provider Date of Service: 11/15/23 Date of admission: 11/14/23 17:36 Date of discharge: 11/15/23 Primary care physician: Unknown Physician Consults: 11/14/23 16:11 Consult to Hematology / Oncology Routine Consulting Provider: [facility] [place] Reason for consultation: Pancytopenia on monthly chemo w/Dr. Jesus DS: Diagnosis Discharge Diagnosis (1) Small cell carcinoma of lung: Status: Acute (2) Pancytopenia: Status: Acute (3) Small cell carcinoma of hilum of lung: Status: Acute DS: Summary Hospital Course Hospital Course: History of presenting illness: Date of Service: 11/14/23 Attending physician on admission: Brooke Chou Chief Complaint: Abnormal labs Pt is a 72-year-old female with a PMH significant for small cell lung cancer, chronic chest pain on chronic hydromorphone, breast cancer s/p partial mastectomy and radiation, HTN, CKD 4, and IBS/chronic diarrhea who presents to the ED from SNF after routine labs found significant pancytopenia. Pt was recently diagnosed with extensive small cell lung cancer 4 months prior and started on chemotherapy of carboplatin, etoposide, and atezolizumab with last treatment on 11/04. Previously [place] [facility] [place] but recently switched to [facility] due to insurance issues. Follows with Dr. Jesus. Patient states has been urinating more than normal and feeling some urinary pressure , though denies dysuria. Otherwise feels ?good? without acute medical complaints. Has had chronic diarrhea for the past 7 years, at baseline. Chronic SOB, cough, and right-sided chest pain at baseline. No fever, chills, N/V. Denies headache, lightheadedness, or dizziness. Denies hematochezia, melena, hematemesis, or hemoptysis. Of note, patient reports she was hospitalized a few months ago at [facility] [place] after starting her current chemotherapy. In the ED pt was hypertensive up to 163/63 in the HR of 55. Labs were significant for leukopenia of 0.8, H&H of 5.7/17.7, platelets 27, BUN 56, creatinine 2.23, protein 5.1, and albumin 2.7. Tested negative for flu, RSV, and COVID. CXR showed no acute cardiopulmonary process. EKG demonstrated sinus bradycardia of 57 with left ventricular hypertrophy. Pt was treated with hydromorphone and transfused 1 unit PRBCs. Pt will be admitted to the hospital for treatment and further evaluation of pancytopenia requiring transfusion in the setting of chemotherapy. Hospital course: 72-year-old female with a PMH significant for small cell lung cancer, chronic chest pain on chronic hydromorphone, breast cancer s/p partial mastectomy and radiation, HTN, CKD 4, and IBS/chronic diarrhea who presents to the ED from SNF after routine labs found significant pancytopenia. Patient admitted to medical floor with a diagnosis of pancytopenia with CBC showing WBCs 0.8, H&H 5.7/17.7, neutrophils 6, Absolute neutrophil count: 80 cells/microliter likely secondary to chemotherapy for small-cell lung cancer on carboplatin, etoposide, and atezolizumab with last infusion 11/04, patient denied bleeding, no fevers, no cough or abdominal pain received 2 units of packed RBC hematocrit improved to 24.9, hemoglobin 8.3 for neutropenia received 2 dosages of Granix, since patient is hemodynamically stable and asymptomatic, other than chronic anterior chest wall pain, therefore being discharged back to rehab facility recommend to continue neutropenic precautions and monitor CBC, patient admitted to chronic diarrhea with no recent change, no worsening abdominal pain, no nausea or vomiting. In regard to hypertension recommend to continue home medications Coreg and hydralazine, noted to have no acute COPD exacerbation, and is continued on loperamide for her chronic diarrhea. Time Attestation Discharge Coordination Time (in mins): 36 Quality: Safe Use of Opioids Does Pt have an Active Cancer Diagnosis on the Problem List?: No Quality: Stroke Does the patient have a stroke diagnosis?: No Physical Exam Vital Signs: Vital Signs: Last Vital Signs Temp 98.6 F 11/15/23 06:58 Pulse 84 11/15/23 11:20 Resp 18 11/15/23 07:50 BP 162/72 H 11/15/23 06:58 Pulse Ox 99 11/15/23 06:58 O2 Del Method Nasal Cannula 11/15/23 06:58 O2 Flow Rate 2 11/15/23 06:58 Oxygen Flow Rate 2 11/14/23 13:44 BMI result Body Mass Index 31.3 Const: Other: General awake alert x3, in no acute distress. Neck no JVD. Anterior chest wall pain with palpation CVS regular rate rhythm, Respiratory lungs coarse breath sounds, no respiratory distress, no wheeze, no rhonchi. Gastrointestinal abdomen soft, non tender, bowel sounds audible Extremities no edema. Neuro non focal Skin no rash Psych appropriate affect DS: Data Data Completed and Pending Labs on day of discharge: Laboratory Results - last 24 hr 11/14/23 11/14/23 11/15/23 14:13 14:28 05:28 WBC 0.8 L* RBC 2.05 L Hgb 5.7 L* Hct 17.7 L* MCV 86.3 MCH 27.8 MCHC 32.2 RDW 14.4 Plt Count 27 L MPV 11.6 Immature Gran % (Auto) Cancelled Neut % (Auto) Cancelled Lymph % (Auto) Cancelled Floyd % (Auto) Cancelled Eos % (Auto) Cancelled Baso % (Auto) Cancelled Lymph # (Auto) Cancelled Floyd # (Auto) Cancelled Eos # (Auto) Cancelled Baso # (Auto) Cancelled Abs Immat Gran (auto) Cancelled Absolute Neuts (auto) Cancelled Absolute Nucleated RBC 0.000 Nucleated RBC % (auto) 0.0 Neutrophils % (Manual) 6 L Band Neutrophils % 4 Lymphocytes % (Manual) 84 H Eosinophils % (Manual) 6 H Abs Neuts (Manual) 0.1 L Lymphocytes # (Manual) 0.7 L Dohle Bodies PRESENT Platelet Estimate DECREASED Plt Morphology Comment NORMAL RBC Morphology NOTED Hypochromasia 1+ (5-14) Smear Path Review PT 12.8 INR 1.1 APTT 30.0 Sodium 139 139 Potassium 4.7 4.5 Chloride 112 H 114 H Carbon Dioxide 21 L 17 L Anion Gap 11 L 13 BUN 56 H 51 H Creatinine 2.23 H 1.99 H Estim Creat Clear Calc 19.2 22.0 Estimated GFR 21 24 Random Glucose 108 87 Calcium 9.3 9.1 Magnesium 2.0 Total Bilirubin 0.2 AST 9 ALT 7 Alkaline Phosphatase 61 Total Protein 5.1 L Albumin 2.7 L Influenza Type A (PCR) NEGATIVE Influenza Type B (PCR) NEGATIVE RSV RNA Qual (PCR) NEGATIVE SARS-CoV-2 RNA (RT-PCR) NEGATIVE Blood Type A Positive Antibody Screen NEGATIVE Crossmatch See Detail 11/15/23 05:29 WBC 1.0 L RBC 2.83 L D Hgb 8.3 L D Hct 24.9 L D MCV 88.0 MCH 29.3 MCHC 33.3 RDW 14.1 Plt Count 22 L MPV 12.8 H Immature Gran % (Auto) Neut % (Auto) Lymph % (Auto) Floyd % (Auto) Eos % (Auto) Baso % (Auto) Lymph # (Auto) Floyd # (Auto) Eos # (Auto) Baso # (Auto) Abs Immat Gran (auto) Absolute Neuts (auto) Absolute Nucleated RBC 0.000 Nucleated RBC % (auto) 0.0 Neutrophils % (Manual) Band Neutrophils % Lymphocytes % (Manual) Eosinophils % (Manual) Abs Neuts (Manual) Lymphocytes # (Manual) Dohle Bodies Platelet Estimate Plt Morphology Comment RBC Morphology Hypochromasia Smear Path Review PT INR APTT Sodium Potassium Chloride Carbon Dioxide Anion Gap BUN Creatinine Estim Creat Clear Calc Estimated GFR Random Glucose Calcium Magnesium Total Bilirubin AST ALT Alkaline Phosphatase Total Protein Albumin Influenza Type A (PCR) Influenza Type B (PCR) RSV RNA Qual (PCR) SARS-CoV-2 RNA (RT-PCR) Blood Type Antibody Screen Crossmatch Discharge Plan Discharge Anticipated Discharge Date/Time: 11/15/23 14:25 Patient Disposition: Xfer SNF Discharge Diagnosis: Pancytopenia Referrals: [facility] [Outside] - 1 Week (TRANSFER FOR RESUMPTION OF SHORT TERM REHAB) Physician,Unknown J [Primary Care Provider] - 1 Week Discharge Medications: Continued sennosides [senna] 8.6 mg Tablet 17.2 mg PO BEDTIME acetaminophen 325 mg Tablet 650 mg PO Q8H PRN (Reason: Pain) carvedilol 12.5 mg tablet 12.5 mg PO BID ipratropium-albuterol 0.5 mg-3 mg(2.5 mg base)/3 mL solution for nebulization 3 ml inhalation Q4H PRN (Reason: Shortness Of Breath) ipratropium-albuterol 0.5 mg-3 mg(2.5 mg base)/3 mL solution for nebulization 3 ml inhalation QID loperamide 2 mg capsule 2 mg PO Q3H PRN (Reason: Loose Stool) trazodone 50 mg tablet 50 mg PO BEDTIME Rx Instructions: Take along with trazodone 100 mg =150mg ondansetron HCl 8 mg Tablet 8 mg PO Q8H PRN (Reason: Nausea And Vomiting) thiamine HCl (vitamin B1) 100 mg Tablet 100 mg PO DAILY aspirin 81 mg Tablet,Delayed Release (Dr/Ec) 81 mg PO DAILY hydromorphone 2 mg tablet 1 mg PO Q4H PRN (Reason: Pain, Moderate) hydromorphone 2 mg tablet 2 mg PO Q4H PRN (Reason: Pain, Severe) magnesium hydroxide [Milk of Magnesia] 400 mg/5 mL Suspension 30 ml PO DAILY PRN (Reason: Constipation) trazodone 100 mg tablet 100 mg PO BEDTIME Rx Instructions: Take along with trazodone 50 mg =150mg bisacodyl 10 mg Suppository 10 mg GA DAILY PRN (Reason: Constipation) hydralazine 100 mg tablet 100 mg PO BID Fleet Enema 19-7 gram/118 mL Enema 118 ml GA DAILY PRN (Reason: Constipation) folic acid 1 mg tablet 1 mg PO DAILY polyethylene glycol 3350 [Miralax] 17 gram/dose Powder 17 g PO DAILY Rx Instructions: Dissolve in 4-8 Oz of fluid Discharge Orders: Discharge Order (Routine); Ordered 11/15/23 Ordered By: Brooke Chou Diet: Advance to usual diet Activity on Discharge: As tolerated Stand Alone Forms: Patient Portal Discharge page Print Language: Kittitian Care Plan Goals: Pancytopenia due to chemotherapy hematocrit improved with 2 units of packed RBC Received 2 dosages of Granix Monitor CBC Continue neutropenic precautions Health Concerns: Small lung cancer Plan of Treatment: Outpatient follow-up with primary care physician or oncologist Dr. Jesus Assessment: As above
[2023-11-15 16:00] VITALS: BP 190/70; PULSE 63; RESP 16; TEMP 36.2; O2SAT 100
== END 2023-11-15 18:42 | disposition skilled nursing facility (03) | DRG 809 ==
LOC: HO.ED 15:36 → HO.EDOVER 18:03 → HO.S3 19:26
PROVIDERS: Physician Assistant Medical; Admitting Provider Student in an Organized Health Care Education/Training Program; Emergency Provider Emergency Medicine; PCP Internal Medicine; Visit Provider Hospitalist
DX: D61.810 Antineoplastic chemotherapy induced pancytopenia (principal); C34.02 Malignant neoplasm of left main bronchus; N18.4 Chronic kidney disease, stage 4 (severe); I12.9 Hypertensive chronic kidney disease with stage 1 through stage 4 chronic kidney disease, or unspecified chronic kidney disease; G89.3 Neoplasm related pain (acute) (chronic); K52.9 Noninfective gastroenteritis and colitis, unspecified; J44.9 Chronic obstructive pulmonary disease, unspecified; Z20.822 Contact with and (suspected) exposure to COVID-19; Z85.3 Personal history of malignant neoplasm of breast; Z87.891 Personal history of nicotine dependence; Z79.82 Long term (current) use of aspirin; Z79.899 Other long term (current) drug therapy
CPT/HCPCS: 0241U; 36415; 71045; 80048; 80053; 83735; 85007; 85027; 85610; 85730; 86850; 86900; 86901; 86920; 86923; 93005; 94640; 97162; 99221; 99285; J1170; J1447; P9016

== ENCOUNTER → 2023-11-14 17:36 | Outpatient (BNV) | payer MEDICARE, MEDICAID, SELFPAY | PROVIDERS: Admitting Provider Student in an Organized Health Care Education/Training Program; Emergency Provider Emergency Medicine; Visit Provider Internal Medicine Medical Oncology | DX: C34.92 Malignant neoplasm of unspecified part of left bronchus or lung (principal) | CPT/HCPCS: 99222 ==

== ENCOUNTER → 2023-11-14 17:36 | Outpatient (BNV) | payer MEDICARE, MEDICAID, SELFPAY | PROVIDERS: Admitting Provider Student in an Organized Health Care Education/Training Program; Emergency Provider Emergency Medicine; Visit Provider Student in an Organized Health Care Education/Training Program | DX: C34.90 Malignant neoplasm of unspecified part of unspecified bronchus or lung (principal); D61.818 Other pancytopenia; C34.00 Malignant neoplasm of unspecified main bronchus | CPT/HCPCS: 99223; 99239 ==

== ENCOUNTER 2023-12-06 09:58 | Outpatient (AMB) | payer MEDICARE, SELFPAY ==
[2023-12-06 10:02] VITALS: BP 108/64; PULSE 60; O2SAT 100; BMI 30.7
--- NOTE | 2023-12-06 10:02 | MHC.OFFVIS ---
Vital Signs 12/06/23 10:02 Height 5 ft Weight 157 lb BMI 30.7 BP 108/64 Blood Pressure Location Lt radial Position Sitting Pulse 60 Pulse Source Doppler Pulse Oximetry (%) 100 Oxygen Delivery Method Nasal Cannula Oxygen Flow Rate 2 Intake Visit Reasons: copd Allergies carisoprodol [From Soma] Allergy (Verified 12/06/23 10:05) Hives codeine Allergy (Verified 12/06/23 10:05) Itching HPI HPI copd: Details: 72-year-old lady, recent 40+ pack-year smoker, with recent diagnosis of small-cell lung cancer currently on chemotherapy under oncology care, also recently started on supplemental oxygen 2 L continuous flow after discharge from [facility] where patient was admitted over summer 2023 secondary to dyspnea. She is currently using duo nebs with reasonable control of her underlying symptoms. She denies family history of lung disease. [facility] Medical History (Updated 12/06/23 @ 10:52 by Pro Alicea MD) HBP (high blood pressure) Chronic diarrhea CKD (chronic kidney disease) Breast cancer HTN (hypertension) Social History (System 11/21/23 @ 07:37 by Mel Vu) Household Members: Spouse and None Housing: [facility] Do you presently have visiting nurse or other home services: No Alcohol intake: former Patient Tobacco Use Status: Former Tobacco user Tobacco use type: Cigarette e-Cigarette/Vaping Use: Never Used Second Hand Smoke Exposure: No service: No Current occupational status: retired and disabled Review of Systems Const Denies daytime sleepiness, Denies excessive sweating, Denies fatigue, Denies fever(s), Denies lethargy, Denies malaise, Denies night sweats, Denies snoring and Denies weight loss Eyes Denies blurry vision and Denies itchy eyes ENT Denies nasal congestion, Denies post nasal drip, Denies sinus pain, Denies sinus pressure and Denies other ( Thrush) Card Denies chest pain, Denies pedal edema, Denies dyspnea, Denies orthopnea and Denies paroxysmal nocturnal dyspnea Resp Denies cough, Denies hemoptysis, Denies excessive phlegm production, Denies dyspnea, Denies snoring and Denies wheezing GI Denies abdominal pain and Denies heartburn Musc Denies myalgias, Denies arthralgias and Denies joint swelling Skin/Breast Denies rash Neuro Denies memory loss and Denies seizure-like activity Psych Denies abnormal sleep pattern, Denies anxiety and Denies memory loss Endo Denies excessive sweating, Denies fatigue and Denies heat intolerance Andrews/Lymph Denies easy bruising Aller/Immun Denies itchy eyes, Denies seasonal rhinorrhea and Denies wheezing Physical Exam Vital Signs: Last Vital Signs Pulse 60 12/06/23 10:02 BP 108/64 12/06/23 10:02 Pulse Ox 100 12/06/23 10:02 Oxygen Delivery Method Nasal Cannula 12/06/23 10:02 Oxygen Flow Rate 2 12/06/23 10:02 BMI result Body Mass Index 30.7 Const General: no acute distress and alert Nutritional Appearance: not obese Orientation/consciousness: Other orientation findings ( oriented) HEENT Head: Yes atraumatic Eyes General: appearance normal, both eyes and all related structures Sclerae: sclerae normal EOM: EOMs intact bilaterally Neck Neck: Yes supple Lymphatic: no lymphadenopathy noted Resp Effort & Inspection: normal respiratory effort and no use of accessory muscles Auscultation: clear to auscultation bilaterally Cardio Rate: regular rate Rhythm: regular rhythm Heart sounds: no gallops, no murmurs and no rubs Skin General skin exam: other ( warm) Extrem General: No clubbing, No cyanosis and No edema Assessment & Plan Assessment & Plan (1) COPD (chronic obstructive pulmonary disease): Code(s): J44.9 - Chronic obstructive pulmonary disease, unspecified Category: Medical Plan: COPD likely severe. Will obtain full PFT. Will continue on duo nebs and start on Anoro. (2) Supplemental oxygen dependent: Code(s): Z99.81 - Dependence on supplemental oxygen Category: Medical Plan: Continue supplemental oxygen to maintain O2 saturation of 88-92%. Coding Level of Care Code New Pt Level 4 (19600) Diagnoses COPD (chronic obstructive pulmonary disease) J44.9 Supplemental oxygen dependent Z99.81
== END 2023-12-06 10:31 | disposition home or self-care (01) ==
PROVIDERS: PCP Internal Medicine; Visit Provider Internal Medicine Pulmonary Disease
DX: J44.9 Chronic obstructive pulmonary disease, unspecified (principal); Z99.81 Dependence on supplemental oxygen
CPT/HCPCS: 99204

== ENCOUNTER → 2023-12-06 09:58 | Outpatient (BNVA) | payer MEDICARE, SELFPAY | PROVIDERS: PCP Internal Medicine; Visit Provider Internal Medicine Pulmonary Disease | DX: J44.9 Chronic obstructive pulmonary disease, unspecified (principal); Z99.81 Dependence on supplemental oxygen | CPT/HCPCS: 99202 ==

== ENCOUNTER 2024-01-03 14:05 | Outpatient (REF) | payer MEDICARE, SELFPAY ==
[2024-01-03 13:38] VITALS: PULSE 76; RESP 16; O2SAT 100
--- NOTE | 2024-01-03 14:09 | PFT_ITS ---
Flows: FEV1: 69 % of predicted at 1.24 L FVC: 77 % of predicted at 1.80 L FEV1/FVC: 69 % Bronchodilator response: Present Volumes: Patient unable to perform lung volume maneuvers. Diffusion capacity: Severely decreased Impression: Moderate obstructive ventilatory defect with positive bronchodilator response. Patient unable to perform lung volume maneuvers. Decreased diffusion capacity suggests emphysema. MTDD
== END 2024-01-03 14:06 | disposition home or self-care (01) ==
LOC: HO.RESP 14:05
PROVIDERS: PCP Internal Medicine; Visit Provider Internal Medicine Pulmonary Disease
DX: J44.9 Chronic obstructive pulmonary disease, unspecified (principal)
CPT/HCPCS: 94010; 94640; 94727; 94729

== ENCOUNTER → 2024-01-03 14:09 | Outpatient (BNV) | payer MEDICARE, SELFPAY | PROVIDERS: PCP Internal Medicine; Visit Provider Internal Medicine Pulmonary Disease | DX: J44.9 Chronic obstructive pulmonary disease, unspecified (principal) | CPT/HCPCS: 94060; 94729 ==

== ENCOUNTER 2024-01-14 13:28 | Outpatient (AMB) | payer MEDICARE, SELFPAY ==
[2024-01-14 13:34] VITALS: BP 117/64; PULSE 59; O2SAT 99
--- NOTE | 2024-01-14 13:34 | A.OFFVIS_ITS ---
Vital Signs 01/14/24 13:34 BP 117/64 Blood Pressure Location Lt brachial Position Sitting Pulse 59 Pulse Source Doppler Pulse Oximetry (%) 99 Oxygen Delivery Method Nasal Cannula Oxygen Flow Rate 2 Intake Visit Reasons: COPD/PFT Follow Up Allergies carisoprodol [From [facility]] Allergy (Verified 01/14/24 13:39) Hives codeine Allergy (Verified 01/14/24 13:39) Itching HPI HPI COPD/PFT Follow Up: Details: 73-year-old lady, recent 40+ pack-year smoker, with underlying small-cell lung cancer currently on chemotherapy under oncology care, and COPD with s ignificantly decreased diffusion capacity supplemental oxygen 2 L continuous flow. Patient has been using Anoro, duo nebs, and albuterol MDI with reasonable control of her symptoms. She denies recent exacerbations. She continues to work with physical therapy to improve her mobility. [facility] Medical History (Updated 01/07/24 @ 09:17 by Umang Jesus MD) HBP (high blood pressure) Chronic diarrhea CKD (chronic kidney disease) Breast cancer HTN (hypertension) Social History (System 11/21/23 @ 07:37 by Mel Vu) Household Members: Spouse and None Housing: Senior Living Do you presently have visiting nurse or other home services: No Alcohol intake: former Patient Tobacco Use Status: Former Tobacco user Tobacco use type: Cigarette e-Cigarette/Vaping Use: Never Used Second Hand Smoke Exposure: No service: No Current occupational status: retired and disabled Review of Systems Const Denies daytime sleepiness, Denies excessive sweating, Denies fatigue, Denies fever(s), Denies lethargy, Denies malaise, Denies night sweats, Denies snoring and Denies weight loss Eyes Denies blurry vision and Denies itchy eyes ENT Denies nasal congestion, Denies post nasal drip, Denies sinus pain, Denies sinus pressure and Denies other ( Thrush) Card Denies chest pain, Denies pedal edema, Denies dyspnea, Denies orthopnea and Denies paroxysmal nocturnal dyspnea Resp Denies cough, Denies hemoptysis, Denies excessive phlegm production, Denies dyspnea, Denies snoring and Denies wheezing GI Denies abdominal pain and Denies heartburn Musc Denies myalgias, Denies arthralgias and Denies joint swelling Skin/Breast Denies rash Neuro Denies memory loss and Denies seizure-like activity Psych Denies abnormal sleep pattern, Denies anxiety and Denies memory loss Endo Denies excessive sweating, Denies fatigue and Denies heat intolerance Andrews/Lymph Denies easy bruising Aller/Immun Denies itchy eyes, Denies seasonal rhinorrhea and Denies wheezing Physical Exam Vital Signs: Last Vital Signs Pulse 59 01/14/24 13:34 BP 117/64 01/14/24 13:34 Pulse Ox 99 01/14/24 13:34 Oxygen Delivery Method Nasal Cannula 01/14/24 13:34 Oxygen Flow Rate 2 01/14/24 13:34 Const General: no acute distress and alert Nutritional Appearance: not obese Orientation/consciousness: Other orientation findings ( oriented) HEENT Head: Yes atraumatic Eyes General: appearance normal, both eyes and all related structures Sclerae: sclerae normal EOM: EOMs intact bilaterally Neck Neck: Yes supple Lymphatic: no lymphadenopathy noted Resp Effort & Inspection: normal respiratory effort and no use of accessory muscles Auscultation: clear to auscultation bilaterally Cardio Rate: regular rate Rhythm: regular rhythm Heart sounds: no gallops, no murmurs and no rubs Skin General skin exam: other ( warm) Extrem General: No clubbing, No cyanosis and No edema Assessment & Plan Assessment & Plan (1) COPD (chronic obstructive pulmonary disease): Code(s): J44.9 - Chronic obstructive pulmonary disease, unspecified Category: Medical Plan: Results of pulmonary function test reviewed, mild obstruction, but with severe diffusion capacity defect. Reasonably well controlled on Anoro, duo nebs, and albuterol MDI. Continue current regimen. (2) Supplemental oxygen dependent: Code(s): Z99.81 - Dependence on supplemental oxygen Category: Medical Plan: Continue supplemental oxygen to maintain O2 saturation above 88%. Will recheck 6 minute walk/oxygen evaluation at next visit. Coding Level of Care Code New Pt Level 4 (76899) Diagnoses COPD (chronic obstructive pulmonary disease) J44.9 Supplemental oxygen dependent Z99.81
== END 2024-01-14 13:58 | disposition home or self-care (01) ==
LOC: HO.HPS 13:29
PROVIDERS: PCP Internal Medicine; Visit Provider Internal Medicine Pulmonary Disease
DX: J44.9 Chronic obstructive pulmonary disease, unspecified (principal); Z99.81 Dependence on supplemental oxygen
CPT/HCPCS: 99214

== ENCOUNTER → 2024-01-14 13:28 | Outpatient (BNVA) | payer MEDICARE, SELFPAY | PROVIDERS: PCP Internal Medicine; Visit Provider Internal Medicine Pulmonary Disease | DX: J44.9 Chronic obstructive pulmonary disease, unspecified (principal); Z99.81 Dependence on supplemental oxygen | CPT/HCPCS: 99212 ==

== ENCOUNTER 2024-01-16 16:37 | Emergency (ER) | payer MEDICARE, SELFPAY ==
[2024-01-16] VITALS (10 sets, daily range): BP systolic 151–208; BP diastolic 42–81; PULSE 58–124; RESP 14–22; TEMP 36.5–36.9; O2SAT 99–100; BMI 28.1
--- NOTE | 2024-01-16 17:03 | ED_ITS ---
HPI - Recheck/Abnormal Lab/Rx General Chief Complaint: Recheck/Abnormal Lab/Rx Stated Complaint: low hemoglobin Time Seen by Provider: 01/16/24 16:38 Source: patient and EMS Mode of arrival: EMS Limitations: no limitations History of Present Illness ED Provider: Dr. Patt Raymond HPI narrative: Patient comes to the emergency room from a nursing facility. Patient was told that her hemoglobin levels are low. According to the patient, she feels well. Patient states that she frequently has low hemoglobin. Patient is undergoing chemotherapy for breast cancer and lung cancer. Patient denies chest pain or shortness of breath. Denies any frequent infections. Patient states that she is used to having blood transfusions and states that she is agreeable to go ahead with a blood. Related Data Home Medications ?Medication ?Instructions ?Recorded ?Confirmed aspirin 81 mg capsule 81 mg PO DAILY 10/24/23 10/24/23 acetaminophen 325 mg tablet 650 mg PO Q8H PRN Pain 11/14/23 11/28/23 aspirin 81 mg tablet,delayed 81 mg PO DAILY 11/14/23 11/14/23 release bisacodyl 10 mg rectal suppository 10 mg RI DAILY PRN Constipation 11/14/23 11/28/23 carvedilol 12.5 mg tablet 12.5 mg PO BID 11/14/23 11/28/23 folic acid 1 mg tablet 1 mg PO DAILY 11/14/23 11/28/23 hydralazine 100 mg tablet 100 mg PO BID 11/14/23 11/28/23 hydromorphone 2 mg tablet 1 mg PO Q4H PRN Pain, Moderate 11/14/23 11/28/23 hydromorphone 2 mg tablet 2 mg PO Q4H PRN Pain, Severe 11/14/23 11/28/23 ipratropium 0.5 mg-albuterol 3 mg 3 ml inhalation Q4H PRN Shortness 11/14/23 11/28/23 (2.5 mg base)/3 mL nebulization Of Breath soln ipratropium 0.5 mg-albuterol 3 mg 3 ml inhalation QID 11/14/23 11/14/23 (2.5 mg base)/3 mL nebulization soln loperamide 2 mg capsule 2 mg PO Q3H PRN Loose Stool 11/14/23 11/28/23 magnesium hydroxide 400 mg/5 mL 30 ml PO DAILY PRN Constipation 11/14/23 11/28/23 oral suspension (Milk of Magnesia) ondansetron HCl 8 mg tablet 8 mg PO Q8H PRN Nausea And Vomiting 11/14/23 11/28/23 polyethylene glycol 3350 17 17 g PO DAILY 11/14/23 11/28/23 gram/dose oral powder (Miralax) sennosides 8.6 mg tablet (senna) 17.2 mg PO BEDTIME 11/14/23 11/28/23 sodium phosphates 19 gram-7 118 ml RI DAILY PRN Constipation 11/14/23 11/28/23 gram/118 mL enema (Fleet Enema) thiamine HCl (vitamin B1) 100 mg 100 mg PO DAILY 11/14/23 11/28/23 tablet trazodone 100 mg tablet 100 mg PO BEDTIME 11/14/23 11/28/23 trazodone 50 mg tablet 50 mg PO BEDTIME 11/14/23 11/28/23 Allergies Allergy/AdvReac Type Severity Reaction Status Date / Time carisoprodol [From [facility]] Allergy Hives Verified 01/16/24 16:47 codeine Allergy Itching Verified 01/16/24 16:47 Review of Systems 2 Review of Systems: Constitutional : No Weight loss, No Fever, No Chills, No Night Sweats, No Fatigue, No Malaise ENT/Mouth : No Hearing loss, No Ear Pain, No Nasal Congestion, No Sinus Pain, No Hoarseness, No sore throat, No Rhinorrhea, No Swallowing Difficulty Eyes: No Eye Pain, No Swelling, No Redness, No Foreign Body, No Discharge, No Vision Changes Cardiovascular : No Chest Pain, No SOB, No Dyspnea on Exertion, No Orthopnea, No Edema, No Palpitations Respiratory : No Cough, No Sputum, No Wheezing, No Smoke Exposure, No Dyspnea Gastrointestinal : No Nausea, No Vomiting, No Diarrhea, No Constipation, No abdominal Pain, No Hematochezia, No Melena Genitourinary : no irregular bleeding, No Dysuria, No Urinary Frequency, No Hematuria, No Urinary Incontinence, No Urgency, No Flank Pain, No Urinary Flow Changes, No Hesitancy Musculoskeletal : No joint pain, No Myalgias, No Joint Swelling Skin : No Skin Lesions, No rash Neuro : No Weakness, No Numbness, No Paresthesias, No Loss of Consciousness, No Dizziness, No Headache Psych : No Anxiety/Panic, No Depression, No SI/HI/AH/VH, No Social Issues, Heme/Lymph: No Bruising, No Bleeding,No Lymphadenopathy, known to have low hemoglobin Endocrine : No Polyuria, No Polydipsia, No Temperature Intolerance PMF Past Medical History Medical History HBP (high blood pressure) Chronic diarrhea CKD (chronic kidney disease) Breast cancer HTN (hypertension) Social History Social History (System 11/21/23 @ 07:37 by Mel Vu) Household Members: Spouse and None Housing: Group Home Do you presently have visiting nurse or other home services: No Alcohol intake: former Patient Tobacco Use Status: Former Tobacco user Tobacco use type: Cigarette e-Cigarette/Vaping Use: Never Used Second Hand Smoke Exposure: No Use of substances other than those prescribed or required for medical reasons: No Advance Directives: Yes Advance Directives on File: Yes Advance Directives Date on File: 10/25/23 service: No Current occupational status: retired and disabled Physical Exam 2 Vital Signs: Vital Signs: Last Vital Signs Temp 98.1 F 01/16/24 16:43 Pulse 90 01/16/24 18:38 Resp 20 01/16/24 18:38 BP 180/42 H 01/16/24 18:38 Pulse Ox 99 01/16/24 18:38 O2 Del Method Room Air 01/16/24 18:38 BMI result Body Mass Index 28.1 Const: Other: Appearance: Alert. Oriented X3. No acute distress. Eyes: Pupils equal, round and reactive to light. ENT: Pharynx normal. Neck: Normal inspection. Neck supple. No lymph nodes noted. No crepitus CVS: Normal heart rate and rhythm. Pulses normal. Normal S1 and S2 Respiratory: No respiratory distress. Breath sounds normal. No Wheezing. No rales Abdomen: Soft and nontender. No rigidity. No distention. Skin: Skin warm and dry. Normal skin color. Normal skin turgor. Extremities: No lower extremity edema. No Lacerations. No Rash Neuro: Oriented X 3. No motor deficit. No sensory deficit. Moving all extremities. No slurred speech. CN 2 through 12 grossly intact Psych: calm, cooperative, normal affect Course Course Course Narrative: All of patient's labs pending. -type and screen pending. -patient states that she has had multiple blood transfusions in the past, is aware of the risks and benefits and would like to proceed with a blood transfusion if her hemoglobin is low. Medications Administered Discontinued Medications Generic Name Dose Route Start Last Admin Trade Name Henrique PRN Reason Stop Dose Admin Lorazepam 2 mg 01/16/24 18:37 01/16/24 18:41 Lorazepam 1 Mg Tablet PO 01/16/24 18:38 2 mg ONCE ONE Administration Oxycodone HCl 5 mg 01/16/24 18:37 01/16/24 18:41 Oxycodone Hcl Immed Release 5 Mg Tablet PO 01/16/24 18:38 5 mg ONCE ONE Administration Medical Decision Making Medical Decision Making MDM Narrative: My interpretation of labs: Patient has pancytopenia. Patient's hemoglobin is 6.6 and hematocrit 20.5. Patient's baseline 4 hemoglobin is above 8. Patient's platelets are 10. PT INR within normal limits, patient's chemistry at baseline -patient declined rectal exam to rule out GI bleed and declined urinalysis -patient states that she feels like she is having a panic attack, requesting Ativan and also complaining of chronic chest pain secondary to lung cancer, requesting oxycodone. Also, patient requesting p.o. Benadryl to help her sleep during the blood transfusion. -I discussed the patient with Dr. 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 Patient states that she does not want to be admitted. Plan is to complete the transfusion and send the patient back home -patient has signed the consent, now in patient's chart. -sign out given to my colleague Dr. De Leon Differential Diagnosis Differential Diagnoses: The differential diagnosis associated with the presentation includes (Chronic anemia, chronic pancytopenia, GI bleed) Admission/Observation Consideration of admission/observation: Escalation of care including admission/observation considered (Given the patient's pancytopenia and currently getting blood transfusion, observation has been considered, however patient unwilling to be admitted to the hospital) Lab Data [facility] [place] Lab Attestation statement: I reviewed the patient's lab results. 01/16/24 17:38 01/16/24 17:38 Labs: Lab Results 01/16/24 01/16/24 Range/Units 17:38 18:49 WBC 1.9 L (4.8-10.8) X10*3/uL RBC 2.27 L (4.20-5.50) X10*6/uL Hgb 6.6 L* (12.0-16.0) g/dl Hct 20.5 L* (37.0-47.0) % MCV 90.3 (80.0-98.0) fL MCH 29.1 (27.0-33.0) pg MCHC 32.2 (31.0-35.0) g/dl RDW 18.7 H (11.0-16.0) % Plt Count 10 L* D (160-400) X10*3/uL MPV 12.0 (9.4-12.3) fL Immature Gran % (Auto) Cancelled Neut % (Auto) Cancelled Lymph % (Auto) Cancelled [place] % (Auto) Cancelled Eos % (Auto) Cancelled Baso % (Auto) Cancelled Lymph # (Auto) Cancelled [place] # (Auto) Cancelled Eos # (Auto) Cancelled Baso # (Auto) Cancelled Abs Immat Gran (auto) Cancelled Absolute Neuts (auto) Cancelled Absolute Nucleated RBC 0.000 (0.0-0.012) X10*3/uL Nucleated RBC % (auto) 0.0 (0.0-0.2) /100WBC Neutrophils % (Manual) 21 L (45-73) % Band Neutrophils % 8 H (3-5) % Lymphocytes % (Manual) 59 H (20-40) % Monocytes % (Manual) 10 (2-11) % Metamyelocytes % 1 % Myelocytes % 1 % Abs Neuts (Manual) 0.6 L (2.0-8.3) X10*3/uL Lymphocytes # (Manual) 1.1 L (1.2-4.9) X10*3/uL Monocytes # (Manual) 0.2 (0.1-1.2) X10*3/uL Toxic Granulation PRESENT Dohle Bodies PRESENT Platelet Estimate DECREASED (NORMAL) Plt Morphology Comment NORMAL RBC Morphology NOTED Microcytosis 1+ (5-14) /OIF Ovalocytes 1+ (5-14) /OIF Schistocytes 1+ (0-2) /OIF PT 12.2 (10.9-12.4) SEC INR 1.0 (0.9-1.1) Hold Blue Top SEE NOTE Sodium 141 (135-145) mmol/L Potassium 4.0 (3.3-5.1) mmol/L Chloride 116 H (96-108) mmol/L Carbon Dioxide 21 L (22-29) mmol/L Anion Gap 8 L (12-20) BUN 26 H (9-16) mg/dL Creatinine 1.39 (0.5-1.4) mg/dL Estim Creat Clear Calc 29.4 Estimated GFR 37 Random Glucose 88 (60-115) mg/dL Calcium 8.6 (8.4-10.2) mg/dL Crossmatch See Detail Critical Care Time Critical Care Time Critical Care Time: Yes Total Critical Care Time: 60 Attestation: I have personally provided critical care time. Time includes review of lab data, radiology results, discussion with consultants, and monitoring for potential decompensation. Intervention performed as documented. Discharge Plan Discharge Clinical Impression: Pancytopenia Patient Disposition: Still a Patient Prescriptions: No Action sennosides [senna] 8.6 mg Tablet 17.2 mg PO BEDTIME acetaminophen 325 mg Tablet 650 mg PO Q8H PRN (Reason: Pain) carvedilol 12.5 mg tablet 12.5 mg PO BID ipratropium-albuterol 0.5 mg-3 mg(2.5 mg base)/3 mL solution for nebulization 3 ml inhalation Q4H PRN (Reason: Shortness Of Breath) ipratropium-albuterol 0.5 mg-3 mg(2.5 mg base)/3 mL solution for nebulization 3 ml inhalation QID loperamide 2 mg capsule 2 mg PO Q3H PRN (Reason: Loose Stool) trazodone 50 mg tablet 50 mg PO BEDTIME Rx Instructions: Take along with trazodone 100 mg =150mg ondansetron HCl 8 mg Tablet 8 mg PO Q8H PRN (Reason: Nausea And Vomiting) thiamine HCl (vitamin B1) 100 mg Tablet 100 mg PO DAILY aspirin 81 mg Tablet,Delayed Release (Dr/Ec) 81 mg PO DAILY hydromorphone 2 mg tablet 1 mg PO Q4H PRN (Reason: Pain, Moderate) hydromorphone 2 mg tablet 2 mg PO Q4H PRN (Reason: Pain, Severe) magnesium hydroxide [Milk of Magnesia] 400 mg/5 mL Suspension 30 ml PO DAILY PRN (Reason: Constipation) trazodone 100 mg tablet 100 mg PO BEDTIME Rx Instructions: Take along with trazodone 50 mg =150mg bisacodyl 10 mg Suppository 10 mg RI DAILY PRN (Reason: Constipation) hydralazine 100 mg tablet 100 mg PO BID Fleet Enema 19-7 gram/118 mL Enema 118 ml RI DAILY PRN (Reason: Constipation) folic acid 1 mg tablet 1 mg PO DAILY polyethylene glycol 3350 [Miralax] 17 gram/dose Powder 17 g PO DAILY Rx Instructions: Dissolve in 4-8 Oz of fluid aspirin 81 mg Capsule 81 mg PO DAILY Print Language: Croatian
[2024-01-16 17:55] LABS: PLT CLUMP 1
[2024-01-16 18:00] LABS: Prothrombin Time 12.2 SEC (10.9-12.4)
[2024-01-16 18:12] LABS: Anion Gap 8 (12-20); Blood Urea Nitrogen 26 mg/dL (9-16); Calcium 8.6 mg/dL (8.4-10.2); Carbon Dioxide 21 mmol/L (22-29); Chloride 116 mmol/L (96-108); Creatinine Clr Calc Pharmacy 29.4; Estimated Glomerular Filt Rate 37; Glucose Random 88 mg/dL (60-115); Mean Corpuscular HGB Conc 32.2 g/dl (31.0-35.0); Mean Corpuscular Hemoglobin 29.1 pg (27.0-33.0); Mean Corpuscular Volume 90.3 fL (80.0-98.0); Red Blood Count 2.27 X10*6/uL (4.20-5.50); Red Cell Distribution Width 18.7 % (11.0-16.0); Sodium 141 mmol/L (135-145)
[2024-01-16 18:13] LABS: WBC ABN SCTR FOR CBC 1
[2024-01-16 18:14] LABS: White Blood Count 1.9 X10*3/uL (4.8-10.8)
[2024-01-16 18:18] LABS: Hemoglobin 6.6 g/dl (12.0-16.0)
[2024-01-16 18:19] LABS: Hematocrit 20.5 % (37.0-47.0)
[2024-01-16 18:20] LABS: Platelet Count 10 X10*3/uL (160-400)
[2024-01-16 18:41] LABS: Band Neutrophils Percent 8 % (3-5); Lymphocytes Absolute Manual 1.1 X10*3/uL (1.2-4.9); Lymphocytes Percent Manual 59 % (20-40); Metamyelocytes Percent 1 %; Monocytes Absolute Manual 0.2 X10*3/uL (0.1-1.2); Monocytes Percent Manual 10 % (2-11); Myelocytes Percent 1 %; Neutrophils Absolute Manual 0.6 X10*3/uL (2.0-8.3); Neutrophils Percent Manual 21 % (45-73); RBC Morphology NOTED
[2024-01-16] MEDS: LORazepam 1 MG TABLET 2 MG PO (18:41)
[2024-01-16] MEDS: oxyCODONE HCl Immed Release 5 MG TABLET PO (18:41)
[2024-01-16 18:42] LABS: Microcytosis 1+ (5-14) /OIF; Ovalocytes 1+ (5-14) /OIF
[2024-01-16 18:43] LABS: Dohle Bodies PRESENT; Platelet Estimate DECREASED (NORMAL); Platelet Morphology Comment NORMAL; Schistocytes 1+ (0-2) /OIF; Toxic Granulation PRESENT
--- NOTE | 2024-01-16 18:44 | PC.NURSE ---
Late entry: Pt presented to ED via EMS from halfway for low hemoglobin. Pt has Lung cancer, receiving chemo. Has PICC line in right arm. Denies any SOB or dizziness. Reports chest pain from my lung cancer , across her chest. Alert and oriented, breathing even and unlabored, skin pale. NSR on bedside monitor. Refusing to change management administrator, adamant about staying in her own clothes.
--- NOTE | 2024-01-16 18:49 | PC.NURSE ---
Pt had period of increased anxiety, reported she feels very anxious and wants pain meds. Medicated per MAR
[2024-01-16] MEDS: diphenhydrAMINE HCL 25 MG CAPSULE 50 MG PO (19:11)
--- NOTE | 2024-01-16 19:24 | PC.NURSE ---
Pt to receive PRBCs and Platlets tonight. Got word from lab that platelets have to come from an outside facility. Room is set up for blood transfusion at this time awaiting platelet arrival. Pt A&Ox4, laying comfortably in stretcher.
--- NOTE | 2024-01-16 20:44 | PC.NURSE ---
Pt placed on purewick, given water and a warm blanket. Adjusted in bed for comfort. First unit of RBCs infusing. Pt tolerating well.
--- NOTE | 2024-01-16 23:00 | PC.NURSE ---
MD aware of BP 208/81. Pt medicated to MAY. Plan to continue with blood transfusion.
[2024-01-16] MEDS: hydrALAZINE HCl 50 MG TABLET 100 MG PO (23:03)
[2024-01-16] MEDS: traZODone HCL 50 MG TABLET PO ×2 (23:47→23:48)
[2024-01-17] VITALS (7 sets, daily range): BP systolic 141–172; BP diastolic 46–73; PULSE 60–126; RESP 12–18; TEMP 36.6–36.8; O2SAT 100
--- NOTE | 2024-01-17 00:27 | PC.NURSE ---
Pt asleep resting comfortably
[2024-01-17 05:51] LABS: Hemoglobin 9.2 g/dl (12.0-16.0); PLT CLUMP 1
[2024-01-17 05:53] LABS: Hematocrit 27.8 % (37.0-47.0); Mean Corpuscular HGB Conc 33.1 g/dl (31.0-35.0); Mean Corpuscular Hemoglobin 29.8 pg (27.0-33.0); Mean Platelet Volume 9.7 fL (9.4-12.3); Red Blood Count 3.09 X10*6/uL (4.20-5.50); Red Cell Distribution Width 16.5 % (11.0-16.0)
[2024-01-17 05:55] LABS: WBC ABN SCTR FOR CBC 1
[2024-01-17 06:04] LABS: Platelet Count 13 X10*3/uL (160-400)
[2024-01-17 06:26] LABS: Band Neutrophils Percent 9 % (3-5); Basophils Percent Manual 1 % (0-2); Lymphocytes Absolute Manual 1.4 X10*3/uL (1.2-4.9); Lymphocytes Percent Manual 68 % (20-40); Monocytes Absolute Manual 0.2 X10*3/uL (0.1-1.2); Monocytes Percent Manual 9 % (2-11); Neutrophils Absolute Manual 0.4 X10*3/uL (2.0-8.3); Neutrophils Percent Manual 13 % (45-73)
[2024-01-17 06:29] LABS: Macrocytosis 1+ (5-14) /OIF; RBC Morphology NOTED
[2024-01-17 06:30] LABS: Burr Cells 1+ (0-2) /OIF; Ovalocytes 1+ (5-14) /OIF; Tear Drop Cells 1+ (0-2) /OIF
[2024-01-17 06:34] LABS: Dohle Bodies PRESENT; Platelet Estimate DECREASED (NORMAL); Toxic Vacuolation PRESENT
[2024-01-17 06:35] LABS: Microcytosis 1+ (5-14) /OIF; Platelet Morphology Comment NORM
--- NOTE | 2024-01-17 09:14 | PC.NURSE ---
Attempted to call rehab multiple times with no answer. Pt being transfered back at this time
== END 2024-01-17 09:16 | disposition home or self-care (01) ==
PROVIDERS: Emergency Medicine; Emergency Provider Emergency Medicine; PCP Internal Medicine
DX: D61.818 Other pancytopenia (principal); R79.89 Other specified abnormal findings of blood chemistry; F41.9 Anxiety disorder, unspecified; Z79.899 Other long term (current) drug therapy; Z51.81 Encounter for therapeutic drug level monitoring
CPT/HCPCS: 36415; 36430; 80048; 85007; 85027; 85610; 86850; 86900; 86901; 86923; 99284; 99285; P9016; P9073

== ENCOUNTER 2024-01-31 09:52 | Outpatient (REF) | payer MEDICARE, SELFPAY ==
--- NOTE | ~2024-01-31 | CT_ITS ---
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 COMPARISON: No prior CT available. Chest x-ray 11/14/2023. TECHNIQUE: Multidetector volumetric CT imaging of the chest was obtained after the administration of 50 mL of Omnipaque 350 intravenous contrast without immediate adverse reactions. Axial MIP volume rendering provided. Sagittal and coronal reformatted images were obtained. This CT examination was performed using dose optimization techniques as appropriate, variously including the following: *Automated exposure control *Adjustment of mA and/or kV according to patient size (this includes techniques or standardized protocols for targeted exams where dose is matched to indication/reason for exam; i.e. extremities or head) *Use of iterative reconstruction technique DLP: 166 mGy-cm FINDINGS: RETAIL SELLING SPECIALIST: -Right-sided PICC, terminates with tip in the cavoatrial junction. PULMONARY NODULES: (Innumerable bilateral, significant highlighted below). -5 mm nodule medial anterior right upper lobe (series 5, image 64). -3 mm nodule abutting the major fissure in the posterior right upper lobe (series 5, image 74). -5 mm nodule superior segment right lower lobe (series 5, image 72). -4 mm nodule lateral right middle lobe (series 5, image 106). -7 mm stellate nodule lateral right middle lobe (series 5, image 115). -6 mm stellate nodule superior segment left lower lobe (series 5, image 96). LUNGS: -There are innumerable small predominantly groundglass patchy opacities throughout both lungs, with relative sparing of the lower lobes inferiorly. -Smooth interlobular septal thickening is present in the inferolateral left lung, suggestive of unilateral pulmonary edema. Mild pulmonary edema pattern also present at the right lung, to a lesser degree. -There are small bilateral left greater than right pleural effusions and associated passive atelectasis. -There is no pneumothorax. MEDIASTINUM: -Heart size is normal. There is dense calcification of the mitral annulus. There is no pericardial effusion. -There is a small amount of fluid in the superior pericardial recesses. -Aorta is nonaneurysmal with moderate atheromatous calcification. -And pulmonary artery is mildly prominent but not pathologically enlarged. -There is no adenopathy in the mediastinum or hilum. -Left thyroid nodule, partially cystic and calcified, measuring 1.5 x 1.1 cm. No follow-up recommended. -Normal esophagus. AXILLA/CHEST WALL: No masses or lymphadenopathy. UPPER ABDOMEN: -Liver again demonstrates a 2.3 x 1.8 cm focus of enhancement in segment 4A with central hypoattenuation suspicious for metastatic disease. -7 mm hepatic enhancing lesion in segment 2. -Retractile partially calcified lesion present in segment 8 with a tiny central focus of enhancement ( series 3, image 15). This measures approximately 2.8 x 2.4 cm axially. -Liver is lobulated with caudate hypertrophy consistent with hepatic cirrhosis. -There is mild splenomegaly. -There is a hypoattenuating 8 mm focus in the anterior spleen, nonspecific. -There is been a cholecystectomy. -There is renal cortical thinning and scarring superior pole right kidney. -Mild hyperplasia of both adrenal glands is present. -There are shotty lymph nodes in the gastrohepatic ligament. OSSEOUS STRUCTURES: -There are is no suspicious lytic or blastic bone lesion. -There are degenerative changes throughout the spine and bilateral shoulder joints. CT/CT chest w IV con IMPRESSION: 1. No priors available for comparison. 2. Innumerable pulmonary nodules as described, measuring up to 7 mm in the right middle lobe, most consistent with metastatic disease. 3. Unilateral pulmonary edema left lung. There may be mild changes in the right lung. 4. Innumerable patchy groundglass opacities in both lungs, nonspecific. Suspect inflammatory and/or infectious etiologies, developing of areas of alveolar edema, or possibly drug reaction. Recommend correlation clinically. 5. Hepatic cirrhosis with enhancing and nonenhancing masses as described, likely related to metastatic disease. Additional findings in the spleen, and gastrohepatic ligament as discussed. Fleischner guidelines were followed. Electronically signed by: Abrahan Lyon MD 02/07/2024 01:37 PM [facility]
[2024-01-31] MEDS: iohexoL 350 MG/ML 75 ML INFUS..BTL 65 ML IV (10:33)
== END 2024-01-31 09:53 | disposition home or self-care (01) ==
LOC: HO.CT 09:52
PROVIDERS: PCP Internal Medicine; Visit Provider Internal Medicine Medical Oncology
DX: C34.90 Malignant neoplasm of unspecified part of unspecified bronchus or lung (principal)
CPT/HCPCS: 71260; Q9967

== ENCOUNTER → 2024-01-31 09:55 | Outpatient (BNV) | payer MEDICARE, SELFPAY | PROVIDERS: PCP Internal Medicine; Visit Provider Radiology Diagnostic Radiology | DX: C34.90 Malignant neoplasm of unspecified part of unspecified bronchus or lung (principal) | CPT/HCPCS: 71260 ==

== ENCOUNTER 2024-02-24 14:26 | Inpatient (IN) | payer MEDICARE, SELFPAY ==
--- NOTE | ~2024-02-24 | CT_ITS ---
EXAMINATION: CT ANGIOGRAM HEAD CT ANGIOGRAM NECK CLINICAL INFORMATION: Altered mental status. COMPARISON: None available. TECHNIQUE: Initial noncontrast narcotics detective imaging of the head and neck was performed. Noncontrast head CT was also performed. Test bolus sequences followed by intravenous administration 70 mL of Omnipaque 350. Helical imaging was performed in the axial plane from the aortic arch to the skull vertex. Delayed postcontrast imaging of the head was also performed. The data was processed at the laboratory technologist's workstation for generation of MIP sequences. Angled MIPs and volume rendered reformatted images were also generated at an offline 3D workstation. Stenoses are assessed in accordance with NASCET criteria unless otherwise indicated. This CT examination was performed using dose optimization techniques as appropriate, variously including the following: *Automated exposure control. *Adjustment of mA and/or kV according to patient size (this includes techniques or standardized protocols for targeted exams where dose is matched to indication/reason for exam; i.e. extremities or head). *Use of iterative reconstruction technique. DLP: 1939 mGy-cm FINDINGS: CT Head: There is no evidence of acute intracranial hemorrhage or edematous territorial infarction. Gottlieb-white matter differentiation is preserved. Scattered and partially confluent hypoattenuation in the periventricular and deep white matter are consistent with moderate microangiopathy. Proportional prominence of the ventricles and sulcal spaces without evidence of obstructive hydrocephalus. No abnormal mass effect or midline shift. No extra-axial fluid collections. No pathologic intra-axial enhancement or regional oligemia. No acute soft tissue or osseous abnormalities. Mild mucosal thickening of the paranasal sinuses. The mastoid air cells and middle ear cavities are clear. CT Neck: There is a 1.6 cm hypoattenuating nodule in the left thyroid lobe. The remaining cervical soft tissues are within normal limits. Mild degenerative retrolisthesis of C4 on C5. Advanced degenerative disc disease from C4-C7. Moderate degenerative disc disease at all additional levels. Moderate to advanced degenerative arthropathy of the atlantodental articulation. Facet and uncovertebral joint arthropathy leads to osseous encroachment on the neural foramina from C3-C7. CT Upper Chest: Right-sided PICC line. The visualized lung apices and upper mediastinum are within normal limits. Neck CTA: Aortic Arch: Normal contour and caliber with moderate calcific atherosclerotic disease. Two vessel branching pattern of the arch with left common carotid artery arising from the brachiocephalic trunk. Great Vessel Origins: No significant stenosis of the branch origins. Right Common Carotid Artery: No focal stenosis or occlusion. Cervical Right Internal Carotid Artery: Heavy calcific atherosclerotic disease of the carotid bulb and proximal internal carotid artery causing 55% stenosis. Left Common Carotid Artery: No focal stenosis or occlusion. Cervical Left Internal Carotid Artery: Heavy calcific atherosclerotic disease of the carotid bulb and proximal internal carotid artery causing less than 50% stenosis. Cervical Right Vertebral Artery: Co-dominant. No focal stenosis or occlusion. Cervical Left Vertebral Artery: Co-dominant. No focal stenosis or occlusion. Brain CTA: Intracranial Internal Carotid Arteries: Calcific atherosclerotic disease of the intracranial internal carotid arteries without occlusion or flow-limiting stenosis. Right Anterior Cerebral Artery: Normal A1 segment. Normal opacification of the distal PRABHA segments. Left Anterior Cerebral Artery: Normal A1 segment. Normal opacification of the distal PRABHA segments. Anterior Communicating Artery: Normal. Right Middle Cerebral Artery: Normal M1 segment of the MCA without focal stenosis or occlusion. Normal arborization of the distal segments. Left Middle Cerebral Artery: Normal M1 segment of the MCA without focal stenosis or occlusion. Normal arborization of the distal segments. Right Vertebral Artery: Normal V4 segment. Normal opacification of the proximal segments of the posterior inferior cerebellar artery. Left Vertebral Artery: Normal V4 segment. Normal opacification of the proximal segments of the posterior inferior cerebellar artery. Basilar Artery: Normal without focal stenosis or occlusion. Normal appearance of the proximal superior cerebellar arteries. Right Posterior Cerebral Artery: Normal P1 segment. Normal posterior communicating artery. Normal opacification of the distal PHYSICAL THERAPY ASST segments. Left Posterior Cerebral Artery: Mild atherosclerotic narrowing of the P1 segment. Normal opacification of the distal PHYSICAL THERAPY ASST segments. Normal opacification of the superior sagittal, straight, transverse, and sigmoid sinuses. CT/CT angio head neck IMPRESSION: 1. No evidence of acute intracranial hemorrhage or edematous territorial infarction. Moderate underlying microangiopathy and generalized cerebral volume loss. 2. CTA of the head and neck without proximal occlusion. 3. Heavy calcific atherosclerotic disease of the carotid bulbs and proximal internal carotid arteries leads to 55% stenosis of the origin of the right ICA and less than 50% stenosis of the origin of the left ICA. 4. Moderate multilevel degenerative spondyloarthropathy of the cervical spine. 5. There is a 1.6 cm nodule in the left thyroid lobe. Recommend further characterization with thyroid ultrasound. Electronically signed by: Osbaldo Turcios DO 02/24/2024 06:55 PM EST [place]
--- NOTE | ~2024-02-24 | XR_ITS ---
EXAMINATION: XR CHEST CLINICAL INFORMATION: Confusion COMPARISON: 11/14/2023. CT chest 01/31/2024. TECHNIQUE: 2 views of the chest were obtained. FINDINGS: Right-sided PICC in place the tip terminating at the cavoatrial junction. This is well positioned. The cardiac, hilar, and mediastinal contours are normal. Aorta is heavily calcified. There is dense calcification of the mitral annulus. The lungs are clear bilaterally. There is no pneumothorax or pleural effusion. There is no focal osseous or soft tissue abnormality. There are bilateral shoulder joints and spinal degenerative changes. XR/XR chest 2V IMPRESSION: 1. PICC in good position. 2. No active pulmonary disease. Electronically signed by: Abrahan Lyon MD 02/24/2024 03:30 PM DERICK TOMAS
--- NOTE | 2024-02-24 14:35 | ED_ITS ---
HPI - General Adult General Chief complaint: Altered Mental Status Stated complaint: confused Time Seen by Provider: 02/24/24 14:46 History of Present Illness ED Provider: Dr. Mandujano HPI narrative: 73 y/o F patient; PMH COPD, small cell carcinoma of lung, breast cancer, anemia; presents from development assistant office with report of lethargy, confusion, and possible vision loss. Unclear duration of patient's symptoms. The patient herself is aware of her name, knew she was in a hospital (thought it was [facility]), and denies any specific concerns. Attempts to reach the patient's son went to [employer]. Patient's son returned call. Reports last chemotherapy was 02/20/2024. Patient received a new chemotherapy agent at that time. Patient's son said since that time she has been more fatigued and lethargic. He last saw her this morning. Oncologist: Dr. Jesus Related Data Home Medications ?Medication ?Instructions ?Recorded ?Confirmed aspirin 81 mg capsule 81 mg PO DAILY 10/24/23 01/28/24 acetaminophen 325 mg tablet 650 mg PO Q8H PRN Pain 11/14/23 01/28/24 aspirin 81 mg tablet,delayed 81 mg PO DAILY 11/14/23 01/28/24 release bisacodyl 10 mg rectal suppository 10 mg IL DAILY PRN Constipation 11/14/23 01/28/24 carvedilol 12.5 mg tablet 12.5 mg PO BID 11/14/23 01/28/24 folic acid 1 mg tablet 1 mg PO DAILY 11/14/23 01/28/24 hydralazine 100 mg tablet 100 mg PO BID 11/14/23 01/28/24 hydromorphone 2 mg tablet 1 mg PO Q4H PRN Pain, Moderate 11/14/23 01/28/24 hydromorphone 2 mg tablet 2 mg PO Q4H PRN Pain, Severe 11/14/23 01/28/24 ipratropium 0.5 mg-albuterol 3 mg 3 ml inhalation Q4H PRN Shortness 11/14/23 01/28/24 (2.5 mg base)/3 mL nebulization Of Breath soln ipratropium 0.5 mg-albuterol 3 mg 3 ml inhalation QID 11/14/23 01/28/24 (2.5 mg base)/3 mL nebulization soln loperamide 2 mg capsule 2 mg PO Q3H PRN Loose Stool 11/14/23 01/28/24 magnesium hydroxide 400 mg/5 mL 30 ml PO DAILY PRN Constipation 11/14/23 01/28/24 oral suspension (Milk of Magnesia) ondansetron HCl 8 mg tablet 8 mg PO Q8H PRN Nausea And Vomiting 11/14/23 01/28/24 polyethylene glycol 3350 17 17 g PO DAILY 11/14/23 01/28/24 gram/dose oral powder (Miralax) sennosides 8.6 mg tablet (senna) 17.2 mg PO BEDTIME 11/14/23 01/28/24 sodium phosphates 19 gram-7 118 ml IL DAILY PRN Constipation 11/14/23 01/28/24 gram/118 mL enema (Fleet Enema) thiamine HCl (vitamin B1) 100 mg 100 mg PO DAILY 11/14/23 01/28/24 tablet trazodone 100 mg tablet 100 mg PO BEDTIME 11/14/23 01/28/24 trazodone 50 mg tablet 50 mg PO BEDTIME 11/14/23 01/28/24 Allergies Allergy/AdvReac Type Severity Reaction Status Date / Time carisoprodol [From Soma] Allergy Hives Verified 02/24/24 14:39 codeine Allergy Itching Verified 02/24/24 14:39 Review of Systems 2 Review of Systems: Yes Unobtainable due to mental status PMFSH Past Medical History Source: old records reviewed Medical History HBP (high blood pressure) Chronic diarrhea CKD (chronic kidney disease) Breast cancer HTN (hypertension) Social History Social History Household Members: Spouse and None Housing: [facility] Do you presently have visiting nurse or other home services: No Alcohol intake: never Patient Tobacco Use Status: Former Tobacco user Tobacco use type: Cigarette Smoked in Last 30 Days: No e-Cigarette/Vaping Use: Never Used Second Hand Smoke Exposure: No Use of substances other than those prescribed or required for medical reasons: No Advance Directives: Yes Advance Directives on File: Yes Advance Directives Date on File: 10/25/23 Do you have a plan to hurt others: No Plan service: No Current occupational status: retired and disabled Physical Exam ED Vital Signs: Vital Signs - 24 hr 02/24/24 14:36 02/24/24 15:28 02/24/24 17:35 Temperature 99.9 F 98.7 F Pulse Rate 63 65 65 Respiratory Rate 18 18 18 Blood Pressure 118/66 145/65 H 185/66 H Pulse Oximetry 95 96 98 Oxygen Delivery Method Room Air Room Air Room Air BMI result Body Mass Index 26.4 Patient is afebrile and hemodynamically stable. Const General: cooperative HENMT Head: Yes normal to inspection and Yes atraumatic Eyes General: appearance normal, both eyes and all related structures Pupils: Equal, round and reactive pupils present EOM: EOMs intact bilaterally Neck Neck: Yes normal visual inspection, Yes full ROM, Yes supple and No tender Chest Chest palpation & inspection: normal inspection of the chest and normal palpation of entire chest wall Resp Effort & Inspection: normal respiratory effort, able to speak in complete sentences, no cough and no respiratory distress Auscultation: clear to auscultation bilaterally Cardio Rate: regular rate Rhythm: regular rhythm Peripheral pulses: Peripheral pulses 2+ throughout GI Inspection: No Abdominal wall edema and No distended Palpation (GI): Soft to palpation, not firm, nontender, no guarding and not rigid Auscultation: normal bowel sounds Back/Spine/Pelvis Back: No back tenderness Neuro Other: aox2 to self and place Strength 5/5 in all extremities Sensation 5/5 in all extremities Finger to nose in both extremities intact Difficulty with following directions with eye movements following finger Intact speech without slurring No word finding difficulty General: moves all extremities Cranial nerves: Yes Equal, round and reactive pupils present Course Course Course Narrative: This is an RME: Additional HPI, ROS, PE not included below will be deferred to primary provider. RME assessment and note performed by: Felicita Smith PA-C This is a [id number]-female, with a hx of CKD, HTN, breast CA, here from Dr. Alicea who presents to the ER with concerns for increased confusion, ?vision loss. Pt appears to be confused. Immediately brought back to ED and discussed with ED physician, Dr. Mandujano who will assume care. Reevaluation(s) Reevaluation #1: CXR unremarkable. Rectal temp 99.9. Ordered for 2 peripheral blood cultures and 1 PICC blood culture. Held antibiotics as unclear if patient's presentation in 2 to infection versus encephalopathy. I spoke with the patient's oncologist Dr. Jesus - confirmed patient received Lurbinectedin for the first time on (02/20/2024). Labs reviewed. Thrombocytopenia 57, baseline. Anemia 8.1, baseline. WBC 4, baseline. Pancytopenia without neutropenia. LA 0.5. Initial troponin 19.5, repeat troponin 17.1 Patient reports people walking through curtains . Her neurological exam is non-focal. Potassium 5.3. Cr 2.59, baseline approx 1.6 - 2.2. Patient has confusion without headache, without neck stiffness, without focal neurological deficit, without neutropenia, without leukocytosis. Less likely meningitis or encephalitis. Suspect possible encephalopathy 2 to new chemotherapy medication. Elevated ESR and CRP. Straight cath urine. Urine with evidence of infection, started on Ceftriaxone. Plan: Admit to hospitalist for dehydration, cystitis, and encephalopathy Condition: Stable Medications Administered Generic Name Dose Route Start Last Admin Trade Name Freq PRN Reason Stop Dose Admin Sodium Chloride 1,000 mls @ 999 mls/hr 02/24/24 18:00 02/24/24 18:14 Ns IV 02/24/24 19:00 999 mls/hr .Q1H1M SADE Administration Discontinued Medications Generic Name Dose Route Start Last Admin Trade Name Freq PRN Reason Stop Dose Admin Iohexol 70 ml 02/24/24 17:27 02/24/24 17:27 Iohexol 350 Mg/Ml 100 Ml Infus..Btl IV 02/24/24 17:28 70 ml ONCE ONE Administration Medical Decision Making Lab Data 02/24/24 15:50 02/24/24 15:50 Labs: Lab Results 02/24/24 02/24/24 02/24/24 Range/Units 15:50 15:53 15:55 WBC 4.0 L (4.8-10.8) X10*3/uL RBC 2.69 L (4.20-5.50) X10*6/uL Hgb 8.1 L (12.0-16.0) g/dl Hct 24.8 L (37.0-47.0) % MCV 92.2 (80.0-98.0) fL MCH 30.1 (27.0-33.0) pg MCHC 32.7 (31.0-35.0) g/dl RDW 19.1 H (11.0-16.0) % Plt Count 57 L D (160-400) X10*3/uL MPV 9.9 (9.4-12.3) fL Immature Gran % (Auto) 0.8 H (0.0-0.4) % Neut % (Auto) 77.0 H (45-73) % Lymph % (Auto) 19.7 L (20-40) % Duval % (Auto) 1.5 L (2-11) % Eos % (Auto) 1.0 (0-4) % Baso % (Auto) 0.0 (0-2) % Lymph # (Auto) 0.8 L (1.2-4.9) X10*3/uL Duval # (Auto) 0.1 (0.1-1.2) X10*3/uL Eos # (Auto) 0.0 (0.0-0.4) X10*3/uL Baso # (Auto) 0.0 (0.0-0.2) X10*3/uL Abs Immat Gran (auto) 0.03 (0.00-0.03) X10*3/uL Absolute Neuts (auto) 3.0 (2.0-8.3) x10*3/uL Absolute Nucleated RBC 0.000 (0.0-0.012) X10*3/uL Nucleated RBC % (auto) 0.0 (0.0-0.2) /100WBC ESR 71 H (0-20) MM/HR PT 11.3 (10.9-12.4) SEC INR 1.0 (0.9-1.1) VBG pH 7.34 (7.32-7.43) VBG pCO2 39 mmHg VBG pO2 74 mmHg VBG HCO3 21 L (22-26) mmol/L VBG O2 Saturation 96.0 % VBG Base Excess -3.4 mmol/L Sodium 140 (135-145) mmol/L Potassium 5.3 H (3.3-5.1) mmol/L Chloride 112 H (96-108) mmol/L Carbon Dioxide 20 L (22-29) mmol/L Anion Gap 13 (12-20) BUN 56 H (9-16) mg/dL Creatinine 2.59 H (0.5-1.4) mg/dL Estim Creat Clear Calc 15.3 Estimated GFR 18 Random Glucose 92 (60-115) mg/dL Lactic Acid 0.5 (0.5-2.0) mmol/L Calcium 8.7 (8.4-10.2) mg/dL Total Bilirubin 0.7 (0.0-1.0) mg/dL Direct Bilirubin 0.3 (0.0-0.5) mg/dL AST 61 H (5-31) U/L ALT 37 H (0-31) U/L Alkaline Phosphatase 167 H (39-117) U/L Total Creatine Kinase < 7 L (26-140) U/L Troponin I High Sens 19.5 H (<3.5-17.0) ng/L C-Reactive Protein 10.62 H (< or = 0.50) mg/dL Total Protein 5.4 L (6.5-8.0) g/dL Albumin 2.7 L (3.5-5.0) g/dL Lipase 50 (8-78) U/L Urine Color Urine Appearance Urine pH (5.0-9.0) Ur Specific [place] (1.005-1.025) Urine Protein (Neg-Trace) mg/dL Urine Glucose (UA) (Negative) mg/dL Urine Ketones (Negative) mg/dL Urine Blood (Negative) Urine Nitrite (Negative) Ur Leukocyte Esterase (Negative) Urine RBC (0-2) /HPF Urine WBC (0-5) /HPF Ur Squamous Epith Cells (0-2) /HPF Urine Bacteria (None Seen) Hyaline Casts (0-2) /LPF Urine Opiates Screen (Not Detect) Ur Buprenorphine Scrn (Not Detect) ng/mL Ur Oxycodone Screen (Not Detect) ng/mL Urine Methadone Screen (Not Detect) ng/mL Urine Fentanyl Screen (Not Detect) Ur Barbiturates Screen (Not Detect) Ur Phencyclidine Scrn (Not Detect) Ur Amphetamines Screen (Not Detect) U Benzodiazepines Scrn (Not Detect) Urine Cocaine Screen (Not Detect) U Marijuana (THC) Screen (Not Detect) Ethyl Alcohol < 10 mg/dL Influenza Type A (PCR) NEGATIVE (Negative) Influenza Type B (PCR) NEGATIVE (Negative) RSV RNA Qual (PCR) NEGATIVE (Negative) SARS-CoV-2 RNA (RT-PCR) NEGATIVE (Negative) 02/24/24 02/24/24 Range/Units 16:42 17:43 WBC (4.8-10.8) X10*3/uL RBC (4.20-5.50) X10*6/uL Hgb (12.0-16.0) g/dl Hct (37.0-47.0) % MCV (80.0-98.0) fL MCH (27.0-33.0) pg MCHC (31.0-35.0) g/dl RDW (11.0-16.0) % Plt Count (160-400) X10*3/uL MPV (9.4-12.3) fL Immature Gran % (Auto) (0.0-0.4) % Neut % (Auto) (45-73) % Lymph % (Auto) (20-40) % Duval % (Auto) (2-11) % Eos % (Auto) (0-4) % Baso % (Auto) (0-2) % Lymph # (Auto) (1.2-4.9) X10*3/uL Duval # (Auto) (0.1-1.2) X10*3/uL Eos # (Auto) (0.0-0.4) X10*3/uL Baso # (Auto) (0.0-0.2) X10*3/uL Abs Immat Gran (auto) (0.00-0.03) X10*3/uL Absolute Neuts (auto) (2.0-8.3) x10*3/uL Absolute Nucleated RBC (0.0-0.012) X10*3/uL Nucleated RBC % (auto) (0.0-0.2) /100WBC ESR (0-20) MM/HR PT (10.9-12.4) SEC INR (0.9-1.1) VBG pH (7.32-7.43) VBG pCO2 mmHg VBG pO2 mmHg VBG HCO3 (22-26) mmol/L VBG O2 Saturation % VBG Base Excess mmol/L Sodium (135-145) mmol/L Potassium (3.3-5.1) mmol/L Chloride (96-108) mmol/L Carbon Dioxide (22-29) mmol/L Anion Gap (12-20) BUN (9-16) mg/dL Creatinine (0.5-1.4) mg/dL Estim Creat Clear Calc Estimated GFR Random Glucose (60-115) mg/dL Lactic Acid (0.5-2.0) mmol/L Calcium (8.4-10.2) mg/dL Total Bilirubin (0.0-1.0) mg/dL Direct Bilirubin (0.0-0.5) mg/dL AST (5-31) U/L ALT (0-31) U/L Alkaline Phosphatase (39-117) U/L Total Creatine Kinase (26-140) U/L Troponin I High Sens 17.1 H (<3.5-17.0) ng/L C-Reactive Protein (< or = 0.50) mg/dL Total Protein (6.5-8.0) g/dL Albumin (3.5-5.0) g/dL Lipase (8-78) U/L Urine Color Yellow Urine Appearance Turbid Urine pH 6.5 (5.0-9.0) Ur Specific [place] 1.015 (1.005-1.025) Urine Protein 300 (3+) H (Neg-Trace) mg/dL Urine Glucose (UA) Negative (Negative) mg/dL Urine Ketones Negative (Negative) mg/dL Urine Blood Small (1+) H (Negative) Urine Nitrite Negative (Negative) Ur Leukocyte Esterase Large (3+) H (Negative) Urine RBC 6-10 H (0-2) /HPF Urine WBC >50 H (0-5) /HPF Ur Squamous Epith Cells 3-5 (0-2) /HPF Urine Bacteria 4+ (None Seen) Hyaline Casts 0-2 (0-2) /LPF Urine Opiates Screen POSITIVE H (Not Detect) Ur Buprenorphine Scrn Not Detected (Not Detect) ng/mL Ur Oxycodone Screen Not Detected (Not Detect) ng/mL Urine Methadone Screen Not Detected (Not Detect) ng/mL Urine Fentanyl Screen Not Detected (Not Detect) Ur Barbiturates Screen Not Detected (Not Detect) Ur Phencyclidine Scrn Not Detected (Not Detect) Ur Amphetamines Screen Not Detected (Not Detect) U Benzodiazepines Scrn Not Detected (Not Detect) Urine Cocaine Screen Not Detected (Not Detect) U Marijuana (THC) Screen Not Detected (Not Detect) Ethyl Alcohol mg/dL Influenza Type A (PCR) (Negative) Influenza Type B (PCR) (Negative) RSV RNA Qual (PCR) (Negative) SARS-CoV-2 RNA (RT-PCR) (Negative) Independent Interpretation I performed an independent interpretation of an: EKG Interpretation: NSR 67BPM ST elevations in V1 - V3, unchanged compared to EKG from 11/2023. Radiology Impression Discussion of test interpretation with radiology: I have reviewed the radiologist's reading. Radiologist Impression: EXAMINATION: XR CHEST CLINICAL INFORMATION: Confusion COMPARISON: 11/14/2023. CT chest 01/31/2024. TECHNIQUE: 2 views of the chest were obtained. FINDINGS: Right-sided PICC in place the tip terminating at the cavoatrial junction. This is well positioned. The cardiac, hilar, and mediastinal contours are normal. Aorta is heavily calcified. There is dense calcification of the mitral annulus. The lungs are clear bilaterally. There is no pneumothorax or pleural effusion. There is no focal osseous or soft tissue abnormality. There are bilateral shoulder joints and spinal degenerative changes. XR/XR chest 2V IMPRESSION: 1. PICC in good position. 2. No active pulmonary disease. Electronically signed by: Abrahan Lyon MD 02/24/2024 03:30 PM [facility] [place] Discharge Plan Discharge Clinical Impression: Pancytopenia, Encephalopathy, Cystitis, Dehydration, DON (acute kidney injury) Patient Disposition: Admitted As Inpatient Print Language: Algerian
[2024-02-24 14:36] VITALS: BP 118/66; PULSE 63; RESP 18; O2SAT 95; BMI 26.4
--- NOTE | 2024-02-24 14:48 | ECG_ITS ---
Test Reason : AMS Blood Pressure : / mmHG Vent. Rate : 067 BPM Atrial Rate : 067 BPM P-R Int : 156 ms QRS Dur : 092 ms QT Int : 426 ms P-R-T Axes : 081 018 028 degrees QTc Int : 450 ms Sinus rhythm with marked sinus arrhythmia Septal infarct , age undetermined Nonspecific ST and T wave abnormality Abnormal ECG No previous ECGs available Referred By: Megan Mandujano Electronically Signed By:MATEO EWING
[2024-02-24 15:28] VITALS: BP 145/65; PULSE 65; RESP 18; TEMP 37.7; O2SAT 96
[2024-02-24 15:57] LABS: MANUAL DIFF FLAG NO
[2024-02-24 15:58] LABS: Hematocrit 24.8 % (37.0-47.0); Hemoglobin 8.1 g/dl (12.0-16.0); Imm Gran Abs Auto 0.03 X10*3/uL (0.00-0.03); Imm Gran Pct Auto 0.8 % (0.0-0.4); Lymphocytes Absolute Auto 0.8 X10*3/uL (1.2-4.9); Lymphocytes Percent Auto 19.7 % (20-40); Mean Corpuscular HGB Conc 32.7 g/dl (31.0-35.0); Mean Corpuscular Hemoglobin 30.1 pg (27.0-33.0); Mean Corpuscular Volume 92.2 fL (80.0-98.0); Mean Platelet Volume 9.9 fL (9.4-12.3); Monocytes Absolute Auto 0.1 X10*3/uL (0.1-1.2); Monocytes Percent Auto 1.5 % (2-11); Red Blood Count 2.69 X10*6/uL (4.20-5.50); Red Cell Distribution Width 19.1 % (11.0-16.0)
[2024-02-24 16:01] LABS: Platelet Count 57 X10*3/uL (160-400)
[2024-02-24 16:01] LABS: VBG Base Excess -3.4 mmol/L; VBG HCO3 21 mmol/L (22-26); VBG pCO2 39 mmHg; VBG pH 7.34 (7.32-7.43); VBG pO2 74 mmHg
[2024-02-24 16:05] LABS: Prothrombin Time 11.3 SEC (10.9-12.4)
[2024-02-24 16:17] LABS: Lactic Acid 0.5 mmol/L (0.5-2.0)
[2024-02-24 16:24] LABS: Troponin-I High Sensitivity 19.5 ng/L (<3.5-17.0)
[2024-02-24 16:34] LABS: Albumin Level 2.7 g/dL (3.5-5.0); Anion Gap 13 (12-20); Aspartate Amino Transferase 61 U/L (5-31); Bilirubin Direct 0.3 mg/dL (0.0-0.5); Bilirubin Total 0.7 mg/dL (0.0-1.0); Blood Urea Nitrogen 56 mg/dL (9-16); Calcium 8.7 mg/dL (8.4-10.2); Carbon Dioxide 20 mmol/L (22-29); Chloride 112 mmol/L (96-108); Creatinine Clr Calc Pharmacy 15.3; Estimated Glomerular Filt Rate 18; Ethanol < 10 mg/dL; Glucose Random 92 mg/dL (60-115); Lipase 50 U/L (8-78); Potassium 5.3 mmol/L (3.3-5.1); Sodium 140 mmol/L (135-145); Total Protein 5.4 g/dL (6.5-8.0)
[2024-02-24 17:02] LABS: Alanine Aminotransferase 37 U/L (0-31); Alkaline Phosphatase 167 U/L (39-117)
[2024-02-24 17:05] LABS: C Reactive Protein 10.62 mg/dL (< or = 0.50)
[2024-02-24 17:07] LABS: Venous Blood Gas Refer to POC result
[2024-02-24 17:11] LABS: Influenza A PCR NEGATIVE (Negative); Influenza B PCR NEGATIVE (Negative); Resp Syncy Virus RNA Qual PCR NEGATIVE (Negative); SARS COV2 PCR INHOUSE NEGATIVE (Negative)
[2024-02-24 17:12] LABS: Troponin-I High Sensitivity 17.1 ng/L (<3.5-17.0)
[2024-02-24] MEDS: iohexoL 350 MG/ML 100 ML INFUS..BTL 70 ML IV (17:27)
[2024-02-24 17:35] VITALS: BP 185/66; PULSE 65; RESP 18; TEMP 37.1; O2SAT 98
[2024-02-24 17:43] LABS: Erythrocyte Sedimentation Rate 71 MM/HR (0-20)
[2024-02-24 17:57] LABS: Appearance Urine Turbid; Color Urine Yellow; Glucose Urine UA Negative (Negative); Leukocyte Esterase Urine Large (3+) (Negative); Nitrite Urine Negative (Negative); PH 6.5 (5.0-9.0); Specific Gravity - Urine 1.015 (1.005-1.025); UMIC TRIGGER UACC YES; Urine Blood Small (1+) (Negative); Urine Ketones Negative (Negative); Urine Protein 300 (3+) mg/dL (Neg-Trace)
[2024-02-24 18:07] LABS: Amphetamine Screen Urine Not Detected (Not Detect); Barbiturates, Urine Not Detected (Not Detect); Benzodiazepines Screen Urine Not Detected (Not Detect); Buprenorphine Scr Not Detected (Not Detect); Cannabinoid Screen Urine Not Detected (Not Detect); Cocaine Screen Urine Not Detected (Not Detect); Fentanyl, urine Not Detected (Not Detect); Methadone Screen, Urine Not Detected (Not Detect); Opiate Screen Urine POSITIVE (Not Detect); Oxycodone Screen Urine Not Detected (Not Detect); Phencyclidine Screen Urine Not Detected (Not Detect)
[2024-02-24] MEDS: 0.9 % Sodium Chloride 1,000 ML 999 ML IV (18:14)
[2024-02-24 18:17] LABS: Bacteria Urine 4+ (None Seen); Hyaline Casts Urine 0-2 /LPF (0-2); UACC Culture Trigger YES; WBC Urine >50 /HPF (0-5)
--- NOTE | 2024-02-24 18:50 | PC.NURSE ---
assumed care of patient at this time, patients son at bedside, awaiting admission by hospitalist
--- NOTE | 2024-02-24 20:17 | P.HPHOSP_ITS ---
History of Present Illness Date of Service: 02/24/24 <ABIMBOLA Ennis Last Filed: 02/24/24 20:45> Attending physician on admission: John Saha <ABIMBOLA Ennis Last Filed: 02/24/24 20:45> Chief Complaint: confusion, lethargic <ABIMBOLA Ennis Last Filed: 02/24/24 20:45> Patient is a 73-year-old female with a past medical history significant for COPD unspecified, breast cancer s/p partial mastectomy and radiation, small-cell lung cancer being treated with chemotherapy by Dr. Jesus, last chemotherapy session was 5 days ago with a new agent, and chronic anemia and HTN, who presented to the ED today with confusion and lethargy for a few days. The patient is a poor historian secondary to her confusion but does reports urinary symptoms including dysuria and frequency. She denies any hematuria, abdominal pain, shortness of breath, chest pain, nausea or vomiting. There was also a concern for neck pain while in the ED, upon further investigation the patient reported that this is chronic for her although again her history is not very accurate. <ABIMBOLA Ennis Last Filed: 02/24/24 20:45> Review of Systems 2 Review of Systems: Likely inaccurate due to confusion <ABIMBOLA Ennis Last Filed: 02/24/24 20:45> Constitutional: Constitutional: Denies chills, Reports fatigue, Denies fever(s), Denies headache(s) and Reports lethargy <ABIMBOLA Ennis Last Filed: 02/24/24 20:45> Eyes: Eyes: Reports blurry vision <ABIMBOLA Ennis Last Filed: 02/24/24 20:45> ENT: Denies headache(s), Denies nasal congestion, Denies nasal discharge, Reports neck pain (chronic) and Denies sore throat <ABIMBOLA Ennis Last Filed: 02/24/24 20:45> Cardiovascular: Cardiovascular: Denies chest pain, Denies rapid heart rate, Denies leg edema and Denies dyspnea <ABIMBOLA Ennis Last Filed: 02/24/24 20:45> Respiratory: Respiratory: Denies chest congestion, Denies cough, Denies dyspnea and Denies wheezing <CHRISTOPHE Ennis Last Filed: 02/24/24 20:45> Gastrointestinal: Gastrointestinal: Denies constipation, Denies diarrhea, Denies nausea and Denies vomiting <CHRISTOPHE Ennis Last Filed: 02/24/24 20:45> Genitourinary: Genitourinary: Denies hematuria, Reports dysuria and Reports urinary urgency <CHRISTOPHE Ennis Last Filed: 02/24/24 20:45> Musculoskeletal: Musculoskeletal: Reports neck pain (chronic) <CHRISTOPHE Ennis Filed: 02/24/24 20:45> Integumentary/Breasts: Skin/Breast: Denies rash <CHRISTOPHE Ennis Last Filed: 02/24/24 20:45> Neurologic: Reports as per HPI, Reports confusion and Denies headache(s) < CHRISTOPHE Ennis Last Filed: 02/24/24 20:45> Psychiatric: Psychiatric: Reports confusion <CHRISTOPHE Ennis Filed: 02/24/24 20:45> Endocrine: Endocrine: Reports fatigue <CHRISTOPHE Ennis Last Filed: 02/24/24 20:45> Hematologic/Lymphatic: Hematologic/Lymphatic: Denies easy bleeding < CHRISTOPHE Ennis Last Filed: 02/24/24 20:45> Allergic/Immunologic: Allergic/Immunologic: Denies wheezing <CHRISTOPHE Ennis Last Filed: 02/24/24 20:45> [facility] Medical History: Medical History HBP (high blood pressure) Chronic diarrhea CKD (chronic kidney disease) Breast cancer HTN (hypertension) <Monse Jennings PA-C Last Filed: 02/24/24 20:45> Functional capacity: wheelchair bound <CHRISTOPHE Ennis [employer] Last Filed: 02/24/24 20:45> Social History: Social History Household Members: Spouse and None Housing: Long Term Do you presently have visiting nurse or other home services: No Alcohol intake: never Patient Tobacco Use Status: Former Tobacco user Tobacco use type: Cigarette Smoked in Last 30 Days: No e-Cigarette/Vaping Use: Never Used Second Hand Smoke Exposure: No Use of substances other than those prescribed or required for medical reasons: No Advance Directives: Yes Advance Directives on File: Yes Advance Directives Date on File: 10/25/23 Do you have a plan to hurt others: No Plan service: No Current occupational status: retired and disabled <Monse Jennings PA-C - Last Filed: 02/24/24 20:45> Narrative: no smoking, etoh or drug use <Monse Jennings PA-C - Last Filed: 02/24/24 20:45> Meds Allergies/Adverse reactions: Allergies Allergy/AdvReac Type Severity Reaction Status Date / Time carisoprodol [From Soma] Allergy Hives Verified 02/24/24 14:39 codeine Allergy Itching Verified 02/24/24 14:39 <Monse Jennings PA-C - Last Filed: 02/24/24 20:45> Home medications: Home Medications ?Medication ?Instructions ?Recorded ?Confirmed ?Last Taken ?Type acetaminophen 325 mg tablet 650 mg PO Q6H PRN Pain/Fever 11/14/23 02/24/24 Unknown History bisacodyl 10 mg rectal suppository 10 mg SD DAILY PRN Constipation 11/14/23 02/24/24 Unknown History carvedilol 12.5 mg tablet 12.5 mg PO BID 11/14/23 02/24/24 Unknown History folic acid 1 mg tablet 1 mg PO DAILY 11/14/23 02/24/24 Unknown History hydralazine 100 mg tablet 100 mg PO BID 11/14/23 02/24/24 Unknown History hydromorphone 2 mg tablet 2 mg PO Q4H PRN Pain, Moderate 11/14/23 02/24/24 Unknown History hydromorphone 2 mg tablet 4 mg PO Q4H PRN Pain, Severe 11/14/23 02/24/24 Unknown History ipratropium 0.5 mg-albuterol 3 mg 3 ml inhalation Q4H PRN Shortness 11/14/23 02/24/24 Unknown History (2.5 mg base)/3 mL nebulization Of Breath soln magnesium hydroxide 400 mg/5 mL 30 ml PO DAILY PRN Constipation 11/14/23 02/24/24 Unknown History oral suspension (Milk of Magnesia) ondansetron HCl 8 mg tablet 8 mg PO Q8H PRN Nausea And Vomiting 11/14/23 02/24/24 Unknown History polyethylene glycol 3350 17 17 g PO DAILY 11/14/23 02/24/24 Unknown History gram/dose oral powder (Miralax) sennosides 8.6 mg tablet (senna) 17.2 mg PO BEDTIME 11/14/23 02/24/24 Unknown History sodium phosphates 19 gram-7 118 ml SD DAILY PRN Constipation 11/14/23 02/24/24 Unknown History gram/118 mL enema (Fleet Enema) thiamine HCl (vitamin B1) 100 mg 100 mg PO DAILY 11/14/23 02/24/24 Unknown History tablet trazodone 100 mg tablet 100 mg PO BEDTIME 11/14/23 02/24/24 Unknown History trazodone 50 mg tablet 50 mg PO BEDTIME 11/14/23 02/24/24 Unknown History acetaminophen 325 mg tablet 650 mg PO DAILY pain 02/24/24 02/24/24 Unknown History clonazepam 0.5 mg tablet 0.5 mg PO DAILY PRN Anxiety 02/24/24 02/24/24 Unknown History heparin lock flush (porcine) 10 10 unit IV Q12H 02/24/24 02/24/24 Unknown History unit/mL intravenous solution melatonin 10 mg tablet 10 mg PO BEDTIME PRN Sleep 02/24/24 02/24/24 Unknown History morphine 15 mg tablet,extended 15 mg PO DAILY 02/24/24 02/24/24 Unknown History release sodium chloride 0.9 % (flush) 10 ml IV BID 02/24/24 02/24/24 Unknown History umeclidinium 62.5 mcg-vilanterol 1 ea inhalation DAILY 02/24/24 02/24/24 Unknown History 25 mcg/actuation powdr for inhalation (Anoro Ellipta) <Monse Jennings PA-C - Last Filed: 02/24/24 20:45> Physical Exam 2 Vital Signs and Narrative: Vital Signs: Last Vital Signs Temp 98.7 F 02/24/24 17:35 Pulse 65 02/24/24 17:35 Resp 18 02/24/24 17:35 BP 185/66 H 02/24/24 17:35 Pulse Ox 98 02/24/24 17:35 O2 Del Method Room Air 02/24/24 17:35 BMI result Body Mass Index 26.4 <Monse Jennings PA-C - Last Filed: 02/24/24 20:45> General: alert, oriented to person, unaware of date or place, no acute distress Resp: CTA bilaterally CVS: S1, S2, RRR GI: +BS, NT, no distention Skin: Warm, dry Neuro: Cranial nerves II-XII grossly intact bilaterally. Motor grossly intact bilaterally Extremities: No LE edema Psych: Appropriate affect <Monse Jennings PA-C - Last Filed: 02/24/24 20:45> Const: General: confusion <Monse Jennings PA-C - Last Filed: 02/24/24 20:45> Orientation/consciousness: confusion <Monse Jennings PA-C - Last Filed: 02/24/24 20:45> Neuro: General: confusion <Monse Jennings PA-C - Last Filed: 02/24/24 20:45> Results Labs CBC and Chem 7: 02/24/24 15:50 02/24/24 15:50 <Monse Jennings PA-C - Last Filed: 02/24/24 20:45> Labs: Laboratory Results - last 24 hr 02/24/24 02/24/24 02/24/24 15:50 15:53 15:55 MCV 92.2 MCH 30.1 MCHC 32.7 RDW 19.1 H Plt Count 57 L D MPV 9.9 Immature Gran % (Auto) 0.8 H Neut % (Auto) 77.0 H Lymph % (Auto) 19.7 L [place] % (Auto) 1.5 L Eos % (Auto) 1.0 Baso % (Auto) 0.0 Lymph # (Auto) 0.8 L [place] # (Auto) 0.1 Eos # (Auto) 0.0 Baso # (Auto) 0.0 Abs Immat Gran (auto) 0.03 Absolute Neuts (auto) 3.0 Absolute Nucleated RBC 0.000 Nucleated RBC % (auto) 0.0 ESR 71 H PT 11.3 INR 1.0 VBG pH 7.34 VBG pCO2 39 VBG pO2 74 VBG HCO3 21 L VBG O2 Saturation 96.0 VBG Base Excess -3.4 Anion Gap 13 Estim Creat Clear Calc 15.3 Estimated GFR 18 Random Glucose 92 Lactic Acid 0.5 Calcium 8.7 Total Bilirubin 0.7 Direct Bilirubin 0.3 AST 61 H ALT 37 H Alkaline Phosphatase 167 H Total Creatine Kinase < 7 L Troponin I High Sens 19.5 H C-Reactive Protein 10.62 H Total Protein 5.4 L Albumin 2.7 L Lipase 50 Urine Color Urine Appearance Urine pH Ur Specific [place] Urine Protein Urine Glucose (UA) Urine Ketones Urine Blood Urine Nitrite Ur Leukocyte Esterase Urine RBC Urine WBC Ur Squamous Epith Cells Urine Bacteria Hyaline Casts Urine Opiates Screen Ur Buprenorphine Scrn Ur Oxycodone Screen Urine Methadone Screen Urine Fentanyl Screen Ur Barbiturates Screen Ur Phencyclidine Scrn Ur Amphetamines Screen U Benzodiazepines Scrn Urine Cocaine Screen U Marijuana (THC) Screen Ethyl Alcohol < 10 Influenza Type A (PCR) NEGATIVE Influenza Type B (PCR) NEGATIVE RSV RNA Qual (PCR) NEGATIVE SARS-CoV-2 RNA (RT-PCR) NEGATIVE 02/24/24 02/24/24 16:42 17:43 MCV MCH MCHC RDW Plt Count MPV Immature Gran % (Auto) Neut % (Auto) Lymph % (Auto) [place] % (Auto) Eos % (Auto) Baso % (Auto) Lymph # (Auto) [place] # (Auto) Eos # (Auto) Baso # (Auto) Abs Immat Gran (auto) Absolute Neuts (auto) Absolute Nucleated RBC Nucleated RBC % (auto) ESR PT INR VBG pH VBG pCO2 VBG pO2 VBG HCO3 VBG O2 Saturation VBG Base Excess Anion Gap Estim Creat Clear Calc Estimated GFR Random Glucose Lactic Acid Calcium Total Bilirubin Direct Bilirubin AST ALT Alkaline Phosphatase Total Creatine Kinase Troponin I High Sens 17.1 H C-Reactive Protein Total Protein Albumin Lipase Urine Color Yellow Urine Appearance Turbid Urine pH 6.5 Ur Specific [place] 1.015 Urine Protein 300 (3+) H Urine Glucose (UA) Negative Urine Ketones Negative Urine Blood Small (1+) H Urine Nitrite Negative Ur Leukocyte Esterase Large (3+) H Urine RBC 6-10 H Urine WBC >50 H Ur Squamous Epith Cells 3-5 Urine Bacteria 4+ Hyaline Casts 0-2 Urine Opiates Screen POSITIVE H Ur Buprenorphine Scrn Not Detected Ur Oxycodone Screen Not Detected Urine Methadone Screen Not Detected Urine Fentanyl Screen Not Detected Ur Barbiturates Screen Not Detected Ur Phencyclidine Scrn Not Detected Ur Amphetamines Screen Not Detected U Benzodiazepines Scrn Not Detected Urine Cocaine Screen Not Detected U Marijuana (THC) Screen Not Detected Ethyl Alcohol Influenza Type A (PCR) Influenza Type B (PCR) RSV RNA Qual (PCR) SARS-CoV-2 RNA (RT-PCR) <ABIMBOLA Ennis Last Filed: 02/24/24 20:45> Imaging Radiologist's Impressions: Impressions Chest X-Ray 02/24/24 14:48 IMPRESSION: 1. PICC in good position. 2. No active pulmonary disease. Electronically signed by: Abrahan Lyon MD 02/24/2024 03:30 PM EST RP Head/Neck CTA 02/24/24 17:06 IMPRESSION: 1. No evidence of acute intracranial hemorrhage or edematous territorial infarction. Moderate underlying microangiopathy and generalized cerebral volume loss. 2. CTA of the head and neck without proximal occlusion. 3. Heavy calcific atherosclerotic disease of the carotid bulbs and proximal internal carotid arteries leads to 55% stenosis of the origin of the right ICA and less than 50% stenosis of the origin of the left ICA. 4. Moderate multilevel degenerative spondyloarthropathy of the cervical spine. 5. There is a 1.6 cm nodule in the left thyroid lobe. Recommend further characterization with thyroid ultrasound. Electronically signed by: Osbaldo Turcios DO 02/24/2024 06:55 PM EST RP <ABIMBOLA Ennis Last Filed: 02/24/24 20:45> Assessment and Plan (1) Encephalopathy: Status: Acute <ABIMBOLA Ennis Filed: 02/24/24 20:45> (2) UTI (urinary tract infection): Status: Acute <ABIMBOLA Ennis Filed: 02/24/24 20:45> (3) DON (acute kidney injury): Status: Acute <Monse Jennings PA-C - Last Filed: 02/24/24 20:45> (4) Dehydration: Status: Acute <Monse Jennings PA-C - Last Filed: 02/24/24 20:45> (5) Pancytopenia: Status: Acute <Monse Jennings PA-C - Last Filed: 02/24/24 20:45> (6) Hyperkalemia: Status: Acute <Monse Jennings PA-C - Last Filed: 02/24/24 20:45> Patient is a 73-year-old female with a past medical history significant for COPD unspecified, breast cancer s/p partial mastectomy and radiation, small- cell lung cancer being treated with chemotherapy by Dr. Jesus, last chemotherapy session was 5 days ago with a new agent, and chronic anemia and HTN, who presented to the ED today with confusion and lethargy for a few days. Encephalopathy secondary to UTI - WBC 4.0, patient on chemotherapy, vitals stable, no fever, no sepsis. - blood cultures x2 pending, PICC line culture pending - chest x-ray negative - head/neck CTA negative - UA positive, culture pending - 1 L IV fluids given in ED, start LR 100 mL/hour - patient started on ceftriaxone, continue - monitor CBC and BMP DON secondary to dehydration - given 1 L IV fluids in ED, start LR 100 mL/hr as above - monitor BMP Pancytopenia - patient on chemotherapy, monitored by Oncology, Dr. Jesus - monitor CBC Hyperkalemia - potassium 5.3, mildly elevated - IV fluids and antibiotics as above - monitor BMP COPD unspecified - no acute exacerbation - continue home meds once med rec done Breast cancer/small cell lung cancer - followed by Dr. Jesus Full code - confirmed with patient's son VTE prophylaxis: Pneumoboots given thrombocytopenia Patient is a 73-year-old female with encephalopathy secondary to UTI complicated by DON secondary to dehydration requiring admission for at least 2 midnights stay for IV fluids and IV antibiotics. <Monse Jennigns PA-C - Last Filed: 02/24/24 20:45> Patient is a 73-year-old female with a past medical history significant for COPD unspecified, breast cancer s/p partial mastectomy and radiation, small- cell lung cancer being treated with chemotherapy by Dr. Jesus, last chemotherapy session was 5 days ago with a new agent, and chronic anemia and HTN, who presented to the ED today with confusion and lethargy for a few days. Encephalopathy, acute metabolic secondary to UTI - WBC 4.0, patient on chemotherapy, vitals stable, no fever, no sepsis. - blood cultures x2 pending, PICC line culture pending - chest x-ray negative - head/neck CTA negative - UA positive, culture pending - 1 L IV fluids given in ED, start LR 100 mL/hour - patient started on ceftriaxone, continue - monitor CBC and BMP DON secondary to dehydration - given 1 L IV fluids in ED, start LR 100 mL/hr as above - monitor BMP Pancytopenia - patient on chemotherapy, monitored by Oncology, Dr. Jesus - monitor CBC Hyperkalemia - potassium 5.3, mildly elevated - IV fluids and antibiotics as above - monitor BMP COPD unspecified - no acute exacerbation - continue home meds once med rec done Breast cancer/small cell lung cancer - followed by Dr. Jesus Full code - confirmed with patient's son VTE prophylaxis: Pneumoboots given thrombocytopenia Patient is a 73-year-old female with encephalopathy secondary to UTI complicated by DON secondary to dehydration requiring admission for at least 2 midnights stay for IV fluids and IV antibiotics. <John Saha MD - Last Filed: 02/24/24 21:03> Quality Stroke Does the patient have a stroke diagnosis?: No <Monse Jennings PA-C - Last Filed: 02/24/24 20:45> VTE Prior VTE?: No <Monse Jennings PA-C - Last Filed: 02/24/24 20:45> VTE Risk Level:: Medical - moderate - high <Monse Jennings PA-C - Last Filed: 02/24/24 20:45> VTE Device Contraindication: N/A - Device Ordered <Monse Jennings PA-C - Last Filed: 02/24/24 20:45> VTE Drug Contraindication: Treatment Not Indicated <Monse Jennings PA-C - Last Filed: 02/24/24 20:45>
[2024-02-24] MEDS: Acetaminophen 325 MG TABLET 975 MG PO (20:27)
[2024-02-24] MEDS: cefTRIAXone sodium 1 GM VIAL IVPUSH (20:29)
[2024-02-24 20:31] VITALS: BP 119/94; PULSE 82; RESP 16; TEMP 36.4; O2SAT 97
--- NOTE | 2024-02-24 20:49 | PHA.MEDREC ---
Addendum entered by Lucille Garrido RPh 02/24/24 22:27: Med rec was reviewed by [facility]. Original Note: Pharmacy Consult ? Medication Reconciliation Pharmacy has completed the medication reconciliation. Spoke with patient and patients son at bedside. Patient was not able to remember her medications but the patient and son confirmed that the patient is currently staying at [facility]. I called and was able to get a med list I was able to confirm the med rec with.
[2024-02-24] MEDS: Lactated Ringers 1,000 ML 100 ML IVCONT (21:13)
--- NOTE | 2024-02-24 21:31 | PC.NURSE ---
this RN attempted to flush PICC unable to get blood return and there is resistance when attempting to flush
[2024-02-24] MEDS: Sodium Zirconium Cyclosilicate 5 GM POWD.PACK PO (21:47)
[2024-02-24 23:11] VITALS: BP 162/71; PULSE 62; RESP 20; TEMP 36.7; O2SAT 96
[2024-02-24] MEDS: HYDROmorphone HCl 0.5 MG/0.5 ML SYRINGE IVPUSH (23:47)
[2024-02-24] MEDS: clonazePAM 0.5 MG TABLET PO (23:47)
[2024-02-24] MEDS: traZODone HCL 50 MG TABLET 150 MG PO (23:47)
[2024-02-25] VITALS (8 sets, daily range): BP systolic 111–198; BP diastolic 62–89; PULSE 19–69; RESP 16–19; TEMP 36.3–37; O2SAT 96–98
--- NOTE | 2024-02-25 02:16 | PC.NURSE ---
Patient is alert with mild to moderate confusion. She is pleasant, calm, cooperative. She states she is at [facility] and gives different answers occasionally for the same question but is able to provide a decent history. She knows the name of her Oncologist and where she lives and some accurate health history. She had a right sided partial mastectomy so no b.p's on the right. She also has a right picc line. She states she has chronic chest and neck pain. Received Dilaudid with good pain control. Patient has a hx of htn and is hypertensive at 160 systolic but has no other cardiovascular issues, no edema, sinus corey on tele. She states she has one tooth and no dentures but no issues with a regular diet. She states she cant see far but does not have her glasses with her. She is wheelchair bound and lives in a nursing facility. She states she cannot stand. Her buttocks is discolored on each side and the beginning of a sheer injury d/t sliding and moisture. patient normally wears a brief. She can roll side to side in bed and RN encouraged patient to stay off her buttocks but patient declined to lay on her side and states she will move around as much as she can. Purewick in place and taj care provided before placement. Patient states she cant remember when her last bm was but states she goes at least every other day, and sometimes twice a day, mostly liquid. Patient has no acute issues or concerns tonight and would like to get some sleep. Will continue to monitor.
[2024-02-25] MEDS: HYDROmorphone HCl 0.5 MG/0.5 ML SYRINGE IVPUSH (05:00)
--- NOTE | 2024-02-25 05:07 | PM.EVENT ---
Event Note Date of Service: 02/25/24 Event Note: Lab reported Positive blood culture: 1 out of 1 set has Gram negative rods . Will increase ceftriaxone to 2 g daily Time Spent With Patient Time: Total time managing care of this patient today ____ minutes.
[2024-02-25 07:06] LABS: Anion Gap 12 (12-20); Blood Urea Nitrogen 48 mg/dL (9-16); Calcium 7.9 mg/dL (8.4-10.2); Carbon Dioxide 19 mmol/L (22-29); Chloride 112 mmol/L (96-108); Creatinine Clr Calc Pharmacy 18.1; Estimated Glomerular Filt Rate 22; Glucose Random 70 mg/dL (60-115); Potassium 5.1 mmol/L (3.3-5.1); Sodium 138 mmol/L (135-145)
[2024-02-25 07:11] LABS: Basophils Percent Auto 0.5 % (0-2); Eosinophils Absolute Auto 0.1 X10*3/uL (0.0-0.4); Eosinophils Percent Auto 2.3 % (0-4); Hematocrit 21.8 % (37.0-47.0); Imm Gran Abs Auto 0.01 X10*3/uL (0.00-0.03); Imm Gran Pct Auto 0.5 % (0.0-0.4); Lymphocytes Absolute Auto 0.8 X10*3/uL (1.2-4.9); MANUAL DIFF FLAG SCAN; Mean Corpuscular HGB Conc 32.1 g/dl (31.0-35.0); Mean Corpuscular Hemoglobin 29.9 pg (27.0-33.0); Mean Corpuscular Volume 93.2 fL (80.0-98.0); Mean Platelet Volume 10.1 fL (9.4-12.3); Monocytes Absolute Auto 0.1 X10*3/uL (0.1-1.2); Monocytes Percent Auto 3.2 % (2-11); Neutrophils Absolute Auto 1.3 x10*3/uL (2.0-8.3); Neutrophils Percent Auto 58.5 % (45-73); Red Blood Count 2.34 X10*6/uL (4.20-5.50); Red Cell Distribution Width 18.9 % (11.0-16.0); SCAN SMEAR FLAG 1
[2024-02-25 07:40] LABS: White Blood Count 2.2 X10*3/uL (4.8-10.8)
[2024-02-25 07:41] LABS: Platelet Count 49 X10*3/uL (160-400)
[2024-02-25 07:54] LABS: SLIDE REVIEW VERIFIED
[2024-02-25] MEDS: Lactated Ringers 1,000 ML 100 ML IVCONT ×2 (07:54→17:01)
[2024-02-25] MEDS: cefTRIAXone sodium 1 GM VIAL IVPUSH (07:55)
[2024-02-25] MEDS: 0.9 % Sodium Chloride Flush 3 ML SYRINGE IVFLUSH ×2 (07:55→17:01)
[2024-02-25] MEDS: HYDROmorphone HCl 1 MG/ML SYRINGE IVPUSH ×2 (07:55→17:01)
[2024-02-25] MEDS: carvediloL 12.5 MG TABLET PO ×2 (07:56→17:01)
[2024-02-25] MEDS: clonazePAM 0.5 MG TABLET PO (07:56)
[2024-02-25] MEDS: Folic Acid 1 MG TABLET PO (07:56)
[2024-02-25] MEDS: hydrALAZINE HCl 50 MG TABLET 100 MG PO ×2 (07:56→20:33)
[2024-02-25] MEDS: Thiamine HCL 100 MG TABLET PO (07:56)
[2024-02-25] MEDS: polyethylene glycoL 3350 17 GM POWD.PACK PO (07:56)
--- NOTE | 2024-02-25 09:43 | MHC.CM.PN ---
IMM 02/25/24, Pt resides at [facility], HCP confirmed, her son Ross, PCP is confirmed: Eleazar Rey. Pt uses W/C for mobility. DCP: return to SNF via BLS. CM to follow and assist with DCplan.
--- NOTE | 2024-02-25 11:35 | P.PNIM_ITS ---
Subjective Subjective Date of Service: 02/25/24 Interval History: chronic neck pain Physical Exam 2 Vital Signs: Vital Signs: Last Vital Signs Temp 97.3 F 02/25/24 11:03 Pulse 64 02/25/24 11:03 Resp 17 02/25/24 11:03 BP 145/64 H 02/25/24 11:03 Pulse Ox 98 02/25/24 11:03 O2 Del Method Room Air 02/25/24 11:03 BMI result Body Mass Index 26.4 General: AO X 3, no acute distress Resp: CTA bilateral, no accessory muscles used CVS: S1,S2,RRR GI: soft, non tender, non distended Neuro: motor grossly intact, alert Psych: appropriate affect, appropriate insight Objective Data Active Medications Acetaminophen (Acetaminophen 325 Mg Tablet) 975 mg PO Q6H PRN PRN Reason: Pain, Mild (Pain Scale 1-3), fever or headache Albuterol/Ipratropium (Albuterol/Iprat 2.5/0.5mg 3 Ml Ampul.Neb) 3 ml INHALE Q4H PRN PRN Reason: Shortness Of Breath Calcium Carbonate (Calcium Carbonate 750 Mg Tab.Chew) 750 mg PO Q4H PRN PRN Reason: Heartburn Carvedilol (Carvedilol 12.5 Mg Tablet) 12.5 mg PO BIDWM [facility]; Protocol Last Admin: 02/25/24 07:56 Dose: 12.5 mg Documented By: OLGA Ceftriaxone Sodium (Ceftriaxone Sodium 2 Gm Vial) 2 gm IVPUSH Q24H [facility] Clonazepam (Clonazepam 0.5 Mg Tablet) 0.5 mg PO BID PRN PRN Reason: Muscle Spasm Last Admin: 02/25/24 07:56 Dose: 0.5 mg Documented By: OLGA Folic Acid (Folic Acid 1 Mg Tablet) 1 mg PO DAILY [facility] Last Admin: 02/25/24 07:56 Dose: 1 mg Documented By: OLGA Hydralazine HCl (Hydralazine Hcl 50 Mg Tablet) 100 mg PO BID [facility]; Protocol Last Admin: 02/25/24 07:56 Dose: 100 mg Documented By: OLGA Hydromorphone HCl (Hydromorphone Hcl 1 Mg/Ml Syringe) 1 mg IVPUSH Q4H PRN; Protocol PRN Reason: Pain, Severe (Pain Scale 7-10) Last Admin: 02/25/24 07:55 Dose: 1 mg Documented By: OLGA Hydromorphone HCl (Hydromorphone Hcl 0.5 Mg/0.5 Ml Syringe) 0.5 mg IVPUSH Q4H PRN; Protocol PRN Reason: Pain, Moderate(Pain Scale 4-6) Last Admin: 02/25/24 05:00 Dose: 0.5 mg Documented By: LISBETH Lactated Ringer's (Lr) 1,000 mls @ 100 mls/hr IVCONT .Q10H SADE Last Admin: 02/25/24 07:54 Dose: 100 mls/hr Documented By: OLGA Magnesium Hydroxide (Milk Of Magnesia 30 Ml Oral.Susp) 30 ml PO DAILY PRN PRN Reason: Constipation Melatonin (Melatonin 3 Mg Tablet) 6 mg PO BEDTIME PRN PRN Reason: Insomnia Ondansetron HCl (Ondansetron Hcl 4 Mg/2 Ml Vial) 4 mg IVPUSH Q8H PRN PRN Reason: Nausea and Vomiting Polyethylene Glycol (Polyethylene Glycol 3350 17 Gm Powd.Pack) 17 gm PO DAILY [facility] Last Admin: 02/25/24 07:56 Dose: 17 gm Documented By: OLGA Senna (Sennosides 8.6 Mg Tablet) 17.2 mg PO BEDTIME [facility] Sodium Chloride (0.9 % Sodium Chloride Flush 3 Ml Syringe) 3 ml IVFLUSH QSHIFT [facility] Last Admin: 02/25/24 07:55 Dose: 3 ml Documented By: OLGA Thiamine HCl (Thiamine Hcl 100 Mg Tablet) 100 mg PO DAILY [facility] Last Admin: 02/25/24 07:56 Dose: 100 mg Documented By: OLGA Trazodone HCl (Trazodone Hcl 50 Mg Tablet) 150 mg PO BEDTIME SADE Last Admin: 02/24/24 23:47 Dose: 150 mg Documented By: LISBETH Labs 02/25/24 06:49 02/25/24 06:49 Labs: Laboratory Results - last 24 hr 02/24/24 02/24/24 02/24/24 15:50 15:53 15:55 MCV 92.2 MCH 30.1 MCHC 32.7 RDW 19.1 H Plt Count 57 L D MPV 9.9 Immature Gran % (Auto) 0.8 H Neut % (Auto) 77.0 H Lymph % (Auto) 19.7 L Ross % (Auto) 1.5 L Eos % (Auto) 1.0 Baso % (Auto) 0.0 Lymph # (Auto) 0.8 L Ross # (Auto) 0.1 Eos # (Auto) 0.0 Baso # (Auto) 0.0 Abs Immat Gran (auto) 0.03 Absolute Neuts (auto) 3.0 Absolute Nucleated RBC 0.000 Nucleated RBC % (auto) 0.0 Smear Tech's Comments ESR 71 H PT 11.3 INR 1.0 VBG pH 7.34 VBG pCO2 39 VBG pO2 74 VBG HCO3 21 L VBG O2 Saturation 96.0 VBG Base Excess -3.4 Anion Gap 13 Estim Creat Clear Calc 15.3 Estimated GFR 18 Random Glucose 92 Lactic Acid 0.5 Calcium 8.7 Total Bilirubin 0.7 Direct Bilirubin 0.3 AST 61 H ALT 37 H Alkaline Phosphatase 167 H Total Creatine Kinase < 7 L Troponin I High Sens 19.5 H C-Reactive Protein 10.62 H Total Protein 5.4 L Albumin 2.7 L Lipase 50 Urine Color Urine Appearance Urine pH Ur Specific [place] Urine Protein Urine Glucose (UA) Urine Ketones Urine Blood Urine Nitrite Ur Leukocyte Esterase Urine RBC Urine WBC Ur Squamous Epith Cells Urine Bacteria Hyaline Casts Urine Opiates Screen Ur Buprenorphine Scrn Ur Oxycodone Screen Urine Methadone Screen Urine Fentanyl Screen Ur Barbiturates Screen Ur Phencyclidine Scrn Ur Amphetamines Screen U Benzodiazepines Scrn Urine Cocaine Screen U Marijuana (THC) Screen Ethyl Alcohol < 10 Influenza Type A (PCR) NEGATIVE Influenza Type B (PCR) NEGATIVE RSV RNA Qual (PCR) NEGATIVE SARS-CoV-2 RNA (RT-PCR) NEGATIVE 02/24/24 02/24/24 02/25/24 16:42 17:43 06:49 MCV 93.2 MCH 29.9 MCHC 32.1 RDW 18.9 H Plt Count 49 L MPV 10.1 Immature Gran % (Auto) 0.5 H Neut % (Auto) 58.5 Lymph % (Auto) 35.0 Ross % (Auto) 3.2 Eos % (Auto) 2.3 Baso % (Auto) 0.5 Lymph # (Auto) 0.8 L Ross # (Auto) 0.1 Eos # (Auto) 0.1 Baso # (Auto) 0.0 Abs Immat Gran (auto) 0.01 Absolute Neuts (auto) 1.3 L Absolute Nucleated RBC 0.000 Nucleated RBC % (auto) 0.0 Smear Tech's Comments VERIFIED ESR PT INR VBG pH VBG pCO2 VBG pO2 VBG HCO3 VBG O2 Saturation VBG Base Excess Anion Gap 12 Estim Creat Clear Calc 18.1 Estimated GFR 22 Random Glucose 70 Lactic Acid Calcium 7.9 L D Total Bilirubin Direct Bilirubin AST ALT Alkaline Phosphatase Total Creatine Kinase Troponin I High Sens 17.1 H C-Reactive Protein Total Protein Albumin Lipase Urine Color Yellow Urine Appearance Turbid Urine pH 6.5 Ur Specific [place] 1.015 Urine Protein 300 (3+) H Urine Glucose (UA) Negative Urine Ketones Negative Urine Blood Small (1+) H Urine Nitrite Negative Ur Leukocyte Esterase Large (3+) H Urine RBC 6-10 H Urine WBC >50 H Ur Squamous Epith Cells 3-5 Urine Bacteria 4+ Hyaline Casts 0-2 Urine Opiates Screen POSITIVE H Ur Buprenorphine Scrn Not Detected Ur Oxycodone Screen Not Detected Urine Methadone Screen Not Detected Urine Fentanyl Screen Not Detected Ur Barbiturates Screen Not Detected Ur Phencyclidine Scrn Not Detected Ur Amphetamines Screen Not Detected U Benzodiazepines Scrn Not Detected Urine Cocaine Screen Not Detected U Marijuana (THC) Screen Not Detected Ethyl Alcohol Influenza Type A (PCR) Influenza Type B (PCR) RSV RNA Qual (PCR) SARS-CoV-2 RNA (RT-PCR) Microbiology Microbiology Results: Microbiology 02/24/24 18:18 Urine Culture - Preliminary Urine Catheterized - Henderson Catheter Gram negative tom 02/24/24 15:50 Blood Culture - Preliminary Blood - Central Line Prelim: GNR Gram Stain only Assessment and Plan (1) UTI (urinary tract infection): Status: Acute Plan 73F PMH copd, breast ca, small cell lung ca on chemo, pancytopenia, htn, presented with ams Acute metabolic encephalopathy due to urinary tract infection complicated by Gram-negative tom bacteremia Continue ceftriaxone, follow-up cultures No sepsis, pancytopenia is chronic due to chemotherapy DON on CKD 3 Likely due to above, continue hydration and monitor COPD Stable Hypertension Continue carvedilol, hydralazine DVT prophylaxis-mechanical due to thrombocytopenia Full code reason for continued hospitalization: Awaiting cultures Quality Stroke Does the patient have a stroke diagnosis?: No VTE Prior VTE?: No VTE Risk Level:: Medical - moderate - high VTE Device Contraindication: N/A - Device Ordered VTE Drug Contraindication: Treatment Not Indicated
--- NOTE | 2024-02-25 12:23 | HO.WOUND ---
Wound Consult: Initial 73yr old?female admitted to [facility] on 02/24/24 - See progress notes and H&P for detailed history.? Wound consult placed for coccyx / sacrum.? Patient agreeable to assessment and photo documentation.? Coccyx and Sacrum Etiology: ?DTI vs Stage 1 ?Present on Admission Wound Bed: Intact red nonblanchable tissue with dark hyperpigmented vs purple maroon pigmented tissue Drainage / Odor: None Edges: ? attached Priti wound: Hyperpigmentation noted - evidence of old injury noted - No Induration, Fluctuance or Warmth noted Pain: tenderness reported Goals of Treatment: ? Foam dressing to aid in pressure redistribution and protect from friction and moisture Recommendations: 1. Turn and Reposition every 2 hours and as needed for patient comfort.? Use pillows or wedges to support off loading positions. 2. Off Load all bony prominences with use of pillows and heel boots if needed.? Apply Preventative foams where needed. ? 3. Monitor for incontinence and moisture control, use barrier creams when needed for prevention and treatment. 4. Provide adequate and supplemental nutrition.? 5. Order low air loss mattress. 6. When applicable maintain blood glucose levels per Providers order. 7. Sacrum / Coccyx - Cleanse with PH balanced wipes, pat dry. Apply skin prep allow to dry. Apply sacral foam dressing peel back and assess Q shift and Change every 5 days and PRN. Re-consult wound care Nurse for wound deterioration or wound changes.
[2024-02-25] MEDS: traZODone HCL 50 MG TABLET 150 MG PO (20:32)
[2024-02-25] MEDS: cefTRIAXone sodium 2 GM VIAL IVPUSH (20:32)
[2024-02-26] MEDS: clonazePAM 0.5 MG TABLET PO ×2 (00:46→16:12)
[2024-02-26] MEDS: HYDROmorphone HCl 0.5 MG/0.5 ML SYRINGE IVPUSH (00:46)
[2024-02-26] MEDS: Acetaminophen 325 MG TABLET 975 MG PO (00:48)
[2024-02-26] MEDS: Lactated Ringers 1,000 ML 100 ML IVCONT (03:03)
[2024-02-26 04:00] VITALS: BP 158/60; PULSE 65; RESP 18; TEMP 37; O2SAT 94
[2024-02-26 07:18] LABS: Eosinophils Percent Auto 1.7 % (0-4); Imm Gran Abs Auto 0.01 X10*3/uL (0.00-0.03); Imm Gran Pct Auto 0.6 % (0.0-0.4); Lymphocytes Absolute Auto 0.7 X10*3/uL (1.2-4.9); Lymphocytes Percent Auto 38.6 % (20-40); MANUAL DIFF FLAG SCAN; Mean Corpuscular HGB Conc 32.3 g/dl (31.0-35.0); Mean Corpuscular Hemoglobin 29.8 pg (27.0-33.0); Mean Corpuscular Volume 92.2 fL (80.0-98.0); Mean Platelet Volume 10.4 fL (9.4-12.3); Monocytes Absolute Auto 0.1 X10*3/uL (0.1-1.2); Neutrophils Percent Auto 55.1 % (45-73); Red Blood Count 2.18 X10*6/uL (4.20-5.50); Red Cell Distribution Width 18.7 % (11.0-16.0); SCAN SMEAR FLAG 1
[2024-02-26 07:31] LABS: Alanine Aminotransferase 19 U/L (0-31); Albumin Level 2.3 g/dL (3.5-5.0); Alkaline Phosphatase 141 U/L (39-117); Anion Gap 10 (12-20); Aspartate Amino Transferase 40 U/L (5-31); Bilirubin Direct 0.2 mg/dL (0.0-0.5); Bilirubin Total 0.4 mg/dL (0.0-1.0); Blood Urea Nitrogen 46 mg/dL (9-16); Calcium 8.1 mg/dL (8.4-10.2); Carbon Dioxide 20 mmol/L (22-29); Chloride 115 mmol/L (96-108); Creatinine Clr Calc Pharmacy 19.1; Estimated Glomerular Filt Rate 23; Glucose Random 74 mg/dL (60-115); Potassium 4.5 mmol/L (3.3-5.1); Sodium 140 mmol/L (135-145); Total Protein 4.7 g/dL (6.5-8.0)
[2024-02-26 07:38] LABS: Hematocrit 20.1 % (37.0-47.0); Hemoglobin 6.5 g/dl (12.0-16.0)
[2024-02-26 07:39] LABS: Platelet Count 42 X10*3/uL (160-400)
[2024-02-26 07:40] LABS: White Blood Count 1.8 X10*3/uL (4.8-10.8)
[2024-02-26] MEDS: 0.9 % Sodium Chloride Flush 3 ML SYRINGE IVFLUSH ×2 (08:08→16:13)
[2024-02-26] MEDS: carvediloL 12.5 MG TABLET PO ×2 (08:08→16:12)
[2024-02-26] MEDS: HYDROmorphone HCl 1 MG/ML SYRINGE IVPUSH ×3 (08:08→21:00)
[2024-02-26] MEDS: hydrALAZINE HCl 50 MG TABLET 100 MG PO ×2 (08:08→21:00)
[2024-02-26 08:09] LABS: SLIDE REVIEW VERIFIED
[2024-02-26] MEDS: Thiamine HCL 100 MG TABLET PO (08:09)
[2024-02-26] MEDS: Folic Acid 1 MG TABLET PO (08:09)
[2024-02-26] MEDS: polyethylene glycoL 3350 17 GM POWD.PACK PO (08:09)
--- NOTE | 2024-02-26 08:21 | P.CDIM_ITS ---
PROVIDER RESPONSE TEXT: To clarify, the appropriate diagnosis supported by the clinical indicators: Deep Tissue Injury sacrum: possible QUERY TEXT: PHYSICIAN'S DOCUMENTATION REQUEST Date of Query: 02/26/2024 07:42 AM EST Patient Name: Anna Crawford Admit Date: 02/25/2024 Dear Ethan Sullivan MD, A review of the medical record indicates additional documentation may be needed. Please review below and update the documentation accordingly. Clinical Indicators: Wound care assessment notes - DTI vs Stage 1 Sacrum, present on arrival Foam dressing to aid in pressure redistribution and protect from friction and moisture. Based on the above, could you please provide further information regarding the ulcer/wound/injury: Deep Tissue Injury sacrum Possible, probable, suspected etc. Pressure Injury Other (explain) Clinically unable to determine (explain) Thank you, Renee Chaidez, CCS, CDIS Use of terms such as suspected, likely, concern for, or probable (associated with a specific diagnosi s that is being evaluated, monitored, or treated as if it exists) are acceptable and can be coded in the inpatient se tting, when documented at the time of discharge. Please use your independent medical judgment in providing your response. THIS QUERY IS PART OF THE PERMANENT MEDICAL RECORD
--- NOTE | 2024-02-26 09:04 | P.PNIM_ITS ---
Subjective Subjective Date of Service: 02/26/24 Interval History: tired Physical Exam 2 Vital Signs: Vital Signs: Last Vital Signs Temp 98.6 F 02/26/24 04:00 Pulse 65 02/26/24 04:00 Resp 18 02/26/24 04:00 BP 158/60 H 02/26/24 04:00 Pulse Ox 94 02/26/24 04:00 O2 Del Method Room Air 02/26/24 04:00 BMI result Body Mass Index 26.4 General: AO X 3, no acute distress Resp: CTA bilateral, no accessory muscles used CVS: S1,S2,RRR GI: soft, non tender, non distended Neuro: motor grossly intact, alert Psych: appropriate affect, appropriate insight Objective Data Active Medications Acetaminophen (Acetaminophen 325 Mg Tablet) 975 mg PO Q6H PRN PRN Reason: Pain, Mild (Pain Scale 1-3), fever or headache Last Admin: 02/26/24 00:48 Dose: 975 mg Documented By: ARUN Albuterol/Ipratropium (Albuterol/Iprat 2.5/0.5mg 3 Ml Ampul.Neb) 3 ml INHALE Q4H PRN PRN Reason: Shortness Of Breath Calcium Carbonate (Calcium Carbonate 750 Mg Tab.Chew) 750 mg PO Q4H PRN PRN Reason: Heartburn Carvedilol (Carvedilol 12.5 Mg Tablet) 12.5 mg PO BIDWM [facility]; Protocol Last Admin: 02/26/24 08:08 Dose: 12.5 mg Documented By: OLGA Ceftriaxone Sodium (Ceftriaxone Sodium 2 Gm Vial) 2 gm IVPUSH Q24H [facility] Last Admin: 02/25/24 20:32 Dose: 2 gm Documented By: ARUN Clonazepam (Clonazepam 0.5 Mg Tablet) 0.5 mg PO BID PRN PRN Reason: Muscle Spasm Last Admin: 02/26/24 00:46 Dose: 0.5 mg Documented By: ARUN Folic Acid (Folic Acid 1 Mg Tablet) 1 mg PO DAILY [facility] Last Admin: 02/26/24 08:09 Dose: 1 mg Documented By: OLGA Hydralazine HCl (Hydralazine Hcl 50 Mg Tablet) 100 mg PO BID [facility]; Protocol Last Admin: 02/26/24 08:08 Dose: 100 mg Documented By: OLGA Hydromorphone HCl (Hydromorphone Hcl 1 Mg/Ml Syringe) 1 mg IVPUSH Q4H PRN; Protocol PRN Reason: Pain, Severe (Pain Scale 7-10) Last Admin: 02/26/24 08:08 Dose: 1 mg Documented By: OLGA Hydromorphone HCl (Hydromorphone Hcl 0.5 Mg/0.5 Ml Syringe) 0.5 mg IVPUSH Q4H PRN; Protocol PRN Reason: Pain, Moderate(Pain Scale 4-6) Last Admin: 02/26/24 00:46 Dose: 0.5 mg Documented By: ARUN Lactated Ringer's (Lr) 1,000 mls @ 100 mls/hr IVCONT .Q10H [facility] Last Admin: 02/26/24 03:03 Dose: 100 mls/hr Documented By: ARUN Magnesium Hydroxide (Milk Of Magnesia 30 Ml Oral.Susp) 30 ml PO DAILY PRN PRN Reason: Constipation Melatonin (Melatonin 3 Mg Tablet) 6 mg PO BEDTIME PRN PRN Reason: Insomnia Ondansetron HCl (Ondansetron Hcl 4 Mg/2 Ml Vial) 4 mg IVPUSH Q8H PRN PRN Reason: Nausea and Vomiting Polyethylene Glycol (Polyethylene Glycol 3350 17 Gm Powd.Pack) 17 gm PO DAILY [facility] Last Admin: 02/26/24 08:09 Dose: 17 gm Documented By: OLGA Senna (Sennosides 8.6 Mg Tablet) 17.2 mg PO BEDTIME [facility] Last Admin: 02/25/24 20:36 Dose: Not Given Documented By: ARUN Non-Admin Reason: Patient Refused Sodium Chloride (0.9 % Sodium Chloride Flush 3 Ml Syringe) 3 ml IVFLUSH QSHIFT [facility] Last Admin: 02/26/24 08:08 Dose: 3 ml Documented By: OLGA Thiamine HCl (Thiamine Hcl 100 Mg Tablet) 100 mg PO DAILY [facility] Last Admin: 02/26/24 08:09 Dose: 100 mg Documented By: OLGA Trazodone HCl (Trazodone Hcl 50 Mg Tablet) 150 mg PO BEDTIME [facility] Last Admin: 02/25/24 20:32 Dose: 150 mg Documented By: ARUN Labs 02/26/24 06:56 02/26/24 06:56 Labs: Laboratory Results - last 24 hr 02/26/24 02/26/24 02/26/24 06:56 06:56 06:56 MCV 92.2 Cancelled MCH 29.8 Cancelled MCHC 32.3 RDW Plt Count MPV Immature Gran % (Auto) Neut % (Auto) Lymph % (Auto) [place] % (Auto) Eos % (Auto) Baso % (Auto) Lymph # (Auto) [place] # (Auto) Eos # (Auto) Baso # (Auto) Abs Immat Gran (auto) Absolute Neuts (auto) Absolute Nucleated RBC Nucleated RBC % (auto) Smear Tech's Comments Anion Gap Estim Creat Clear Calc Estimated GFR Random Glucose Calcium Magnesium Total Bilirubin Direct Bilirubin AST ALT Alkaline Phosphatase Total Protein Albumin Crossmatch 02/26/24 02/26/24 02/26/24 06:56 06:56 06:56 MCV MCH MCHC Cancelled RDW 18.7 H Cancelled Plt Count 42 L Cancelled MPV 10.4 Immature Gran % (Auto) Neut % (Auto) Lymph % (Auto) [place] % (Auto) Eos % (Auto) Baso % (Auto) Lymph # (Auto) [place] # (Auto) Eos # (Auto) Baso # (Auto) Abs Immat Gran (auto) Absolute Neuts (auto) Absolute Nucleated RBC Nucleated RBC % (auto) Smear Tech's Comments Anion Gap Estim Creat Clear Calc Estimated GFR Random Glucose Calcium Magnesium Total Bilirubin Direct Bilirubin AST ALT Alkaline Phosphatase Total Protein Albumin Crossmatch 02/26/24 02/26/24 02/26/24 06:56 06:56 06:56 MCV MCH MCHC RDW Plt Count MPV Cancelled Immature Gran % (Auto) 0.6 H Neut % (Auto) 55.1 Lymph % (Auto) 38.6 [place] % (Auto) 4.0 Eos % (Auto) 1.7 Baso % (Auto) 0.0 Lymph # (Auto) 0.7 L [place] # (Auto) 0.1 Eos # (Auto) 0.0 Baso # (Auto) 0.0 Abs Immat Gran (auto) 0.01 Absolute Neuts (auto) 1.0 L Absolute Nucleated RBC 0.000 Cancelled Nucleated RBC % (auto) 0.0 Cancelled Smear Tech's Comments VERIFIED Anion Gap 10 L Estim Creat Clear Calc 19.1 Estimated GFR 23 Random Glucose 74 Calcium 8.1 L Magnesium 2.0 Total Bilirubin 0.4 Direct Bilirubin 0.2 AST 40 H ALT 19 Alkaline Phosphatase 141 H Total Protein 4.7 L Albumin 2.3 L Crossmatch 02/26/24 08:55 MCV MCH MCHC RDW Plt Count MPV Immature Gran % (Auto) Neut % (Auto) Lymph % (Auto) [place] % (Auto) Eos % (Auto) Baso % (Auto) Lymph # (Auto) [place] # (Auto) Eos # (Auto) Baso # (Auto) Abs Immat Gran (auto) Absolute Neuts (auto) Absolute Nucleated RBC Nucleated RBC % (auto) Smear Tech's Comments Anion Gap Estim Creat Clear Calc Estimated GFR Random Glucose Calcium Magnesium Total Bilirubin Direct Bilirubin AST ALT Alkaline Phosphatase Total Protein Albumin Crossmatch See Detail Microbiology Microbiology Results: Microbiology 02/24/24 18:18 Urine Culture - Preliminary Urine Catheterized - Henderson Catheter Klebsiella pneumoniae 02/24/24 16:42 Blood Culture - Preliminary Blood - Venous Prelim: GNR Gram Stain only 02/24/24 16:03 Blood Culture - Preliminary Blood - Venous Prelim: GNR Gram Stain only 02/24/24 15:50 Blood Culture - Preliminary Blood - Central Line Prelim: GNR Gram Stain only Assessment and Plan (1) UTI (urinary tract infection): Status: Acute Plan 73F PMH copd, breast ca, small cell lung ca on chemo, pancytopenia, htn, presented with ams Acute metabolic encephalopathy due to urinary tract infection complicated by Gram-negative tom bacteremia Continue ceftriaxone, follow-up cultures (urine growing klebsiella) No sepsis, pancytopenia is chronic due to chemotherapy DON on CKD 3 Likely due to above, monitor small cell lung ca on chemo complicated by pancytopenia transfuse 1 unit prbc, monitor COPD Stable Hypertension Continue carvedilol, hydralazine DVT prophylaxis-mechanical due to thrombocytopenia Full code reason for continued hospitalization: Awaiting cultures Quality Stroke Does the patient have a stroke diagnosis?: No VTE Prior VTE?: No VTE Risk Level:: Medical - moderate - high VTE Device Contraindication: N/A - Device Ordered VTE Drug Contraindication: Treatment Not Indicated
[2024-02-26 10:38] VITALS: BP 107/57; PULSE 62; RESP 16; TEMP 36.5
[2024-02-26 10:58] VITALS: BP 139/64; PULSE 61; RESP 16; TEMP 36.5
--- NOTE | 2024-02-26 14:27 | MHC.CM.PN ---
Per rounds, pt. is still requiring acute level of care. DCP is return to [facility]. CM to follow and assist with DC plan.
[2024-02-26 14:50] VITALS: BP 149/98; PULSE 65; RESP 16; TEMP 36.5
[2024-02-26 16:00] VITALS: BP 149/98; PULSE 65; RESP 16; TEMP 36.5; O2SAT 93
[2024-02-26 19:42] VITALS: BP 190/80; PULSE 69; RESP 18; TEMP 36.9; O2SAT 99
[2024-02-26] MEDS: traZODone HCL 50 MG TABLET 150 MG PO (21:00)
[2024-02-26] MEDS: cefTRIAXone sodium 2 GM VIAL IVPUSH (21:25)
[2024-02-27] VITALS (14 sets, daily range): BP systolic 175–198; BP diastolic 70–100; PULSE 63–88; RESP 14–20; TEMP 36.3–36.8; O2SAT 97–98
[2024-02-27] MEDS: 0.9 % Sodium Chloride Flush 3 ML SYRINGE IVFLUSH ×3 (00:22→20:21)
[2024-02-27] MEDS: hydrALAZINE HCl 20 MG/ML VIAL 10 MG IVPUSH (05:31)
[2024-02-27] MEDS: HYDROmorphone HCl 1 MG/ML SYRINGE IVPUSH ×6 (05:44→22:22)
[2024-02-27 07:08] LABS: MANUAL DIFF FLAG NO
[2024-02-27 07:19] LABS: Eosinophils Percent Auto 0.4 % (0-4); Hematocrit 26.3 % (37.0-47.0); Hemoglobin 8.9 g/dl (12.0-16.0); Imm Gran Abs Auto 0.02 X10*3/uL (0.00-0.03); Imm Gran Pct Auto 0.7 % (0.0-0.4); Lymphocytes Absolute Auto 0.9 X10*3/uL (1.2-4.9); Lymphocytes Percent Auto 34.1 % (20-40); Mean Corpuscular HGB Conc 33.8 g/dl (31.0-35.0); Mean Corpuscular Hemoglobin 30.3 pg (27.0-33.0); Mean Corpuscular Volume 89.5 fL (80.0-98.0); Mean Platelet Volume 10.6 fL (9.4-12.3); Monocytes Absolute Auto 0.1 X10*3/uL (0.1-1.2); Monocytes Percent Auto 4.3 % (2-11); Neutrophils Absolute Auto 1.7 x10*3/uL (2.0-8.3); Neutrophils Percent Auto 60.5 % (45-73); Red Blood Count 2.94 X10*6/uL (4.20-5.50); Red Cell Distribution Width 17.9 % (11.0-16.0); White Blood Count 2.8 X10*3/uL (4.8-10.8)
[2024-02-27 07:21] LABS: Platelet Count 37 X10*3/uL (160-400)
[2024-02-27 07:30] LABS: Anion Gap 11 (12-20); Blood Urea Nitrogen 39 mg/dL (9-16); Calcium 8.7 mg/dL (8.4-10.2); Carbon Dioxide 19 mmol/L (22-29); Chloride 116 mmol/L (96-108); Creatinine Clr Calc Pharmacy 18.5; Estimated Glomerular Filt Rate 22; Glucose Random 92 mg/dL (60-115); Potassium 4.3 mmol/L (3.3-5.1); Sodium 142 mmol/L (135-145)
[2024-02-27] MEDS: HYDROmorphone HCl 0.5 MG/0.5 ML SYRINGE IVPUSH ×2 (07:31→12:27)
[2024-02-27] MEDS: Folic Acid 1 MG TABLET PO (07:32)
[2024-02-27] MEDS: carvediloL 12.5 MG TABLET PO ×2 (07:32→17:35)
[2024-02-27] MEDS: hydrALAZINE HCl 50 MG TABLET 100 MG PO ×2 (07:32→20:22)
[2024-02-27] MEDS: Thiamine HCL 100 MG TABLET PO (07:32)
[2024-02-27] MEDS: amLODIPine Besylate 5 MG TABLET PO (07:39)
--- NOTE | 2024-02-27 10:59 | P.PNIM_ITS ---
Subjective Subjective Date of Service: 02/27/24 Interval History: tired Physical Exam 2 Vital Signs: Vital Signs: Last Vital Signs Temp 97.7 F 02/27/24 07:47 Pulse 66 02/27/24 07:47 Resp 18 02/27/24 07:47 BP 196/92 H 02/27/24 08:17 Pulse Ox 97 02/27/24 07:47 O2 Del Method Room Air 02/27/24 07:47 BMI result Body Mass Index 26.4 General: AO X 3, no acute distress Resp: CTA bilateral, no accessory muscles used CVS: S1,S2,RRR GI: soft, non tender, non distended Neuro: motor grossly intact, alert Psych: appropriate affect, appropriate insight Objective Data Active Medications Acetaminophen (Acetaminophen 325 Mg Tablet) 975 mg PO Q6H PRN PRN Reason: Pain, Mild (Pain Scale 1-3), fever or headache Last Admin: 02/26/24 00:48 Dose: 975 mg Documented By: ARUN Albuterol/Ipratropium (Albuterol/Iprat 2.5/0.5mg 3 Ml Ampul.Neb) 3 ml INHALE Q4H PRN PRN Reason: Shortness Of Breath Amlodipine Besylate (Amlodipine Besylate 5 Mg Tablet) 5 mg PO DAILY [facility]; Protocol Last Admin: 02/27/24 07:39 Dose: 5 mg Documented By: TAJ Calcium Carbonate (Calcium Carbonate 750 Mg Tab.Chew) 750 mg PO Q4H PRN PRN Reason: Heartburn Carvedilol (Carvedilol 12.5 Mg Tablet) 12.5 mg PO BIDWM [facility]; Protocol Last Admin: 02/27/24 07:32 Dose: 12.5 mg Documented By: TAJ Ceftriaxone Sodium (Ceftriaxone Sodium 2 Gm Vial) 2 gm IVPUSH Q24H SADE Last Admin: 02/26/24 21:25 Dose: 2 gm Documented By: ARUN Clonazepam (Clonazepam 0.5 Mg Tablet) 0.5 mg PO BID PRN PRN Reason: Muscle Spasm Last Admin: 02/26/24 16:12 Dose: 0.5 mg Documented By: OLGA Folic Acid (Folic Acid 1 Mg Tablet) 1 mg PO DAILY [facility] Last Admin: 02/27/24 07:32 Dose: 1 mg Documented By: TAJ Hydralazine HCl (Hydralazine Hcl 50 Mg Tablet) 100 mg PO BID [facility]; Protocol Last Admin: 02/27/24 07:32 Dose: 100 mg Documented By: TAJ Hydromorphone HCl (Hydromorphone Hcl 1 Mg/Ml Syringe) 1 mg IVPUSH Q4H PRN; Protocol PRN Reason: Pain, Severe (Pain Scale 7-10) Last Admin: 02/27/24 09:48 Dose: 1 mg Documented By: TAJ Hydromorphone HCl (Hydromorphone Hcl 0.5 Mg/0.5 Ml Syringe) 0.5 mg IVPUSH Q4H PRN; Protocol PRN Reason: Pain, Moderate(Pain Scale 4-6) Last Admin: 02/27/24 07:31 Dose: 0.5 mg Documented By: TAJ Magnesium Hydroxide (Milk Of Magnesia 30 Ml Oral.Susp) 30 ml PO DAILY PRN PRN Reason: Constipation Melatonin (Melatonin 3 Mg Tablet) 6 mg PO BEDTIME PRN PRN Reason: Insomnia Ondansetron HCl (Ondansetron Hcl 4 Mg/2 Ml Vial) 4 mg IVPUSH Q8H PRN PRN Reason: Nausea and Vomiting Polyethylene Glycol (Polyethylene Glycol 3350 17 Gm Powd.Pack) 17 gm PO DAILY [facility] Last Admin: 02/27/24 07:33 Dose: Not Given Documented By: TAJ Non-Admin Reason: Patient Refused Senna (Sennosides 8.6 Mg Tablet) 17.2 mg PO BEDTIME [facility] Last Admin: 02/26/24 21:13 Dose: Not Given Documented By: ARUN Non-Admin Reason: loose stools Sodium Chloride (0.9 % Sodium Chloride Flush 3 Ml Syringe) 3 ml IVFLUSH QSHIFT [facility] Last Admin: 02/27/24 07:32 Dose: 3 ml Documented By: TAJ Thiamine HCl (Thiamine Hcl 100 Mg Tablet) 100 mg PO DAILY [facility] Last Admin: 02/27/24 07:32 Dose: 100 mg Documented By: TAJ Trazodone HCl (Trazodone Hcl 50 Mg Tablet) 150 mg PO BEDTIME [facility] Last Admin: 02/26/24 21:00 Dose: 150 mg Documented By: ARUN Madden 02/27/24 06:50 02/27/24 06:50 Labs: Laboratory Results - last 24 hr 02/26/24 02/27/24 08:55 06:50 MCV 89.5 MCH 30.3 MCHC 33.8 RDW 17.9 H Plt Count 37 L MPV 10.6 Immature Gran % (Auto) 0.7 H Neut % (Auto) 60.5 Lymph % (Auto) 34.1 [place] % (Auto) 4.3 Eos % (Auto) 0.4 Baso % (Auto) 0.0 Lymph # (Auto) 0.9 L [place] # (Auto) 0.1 Eos # (Auto) 0.0 Baso # (Auto) 0.0 Abs Immat Gran (auto) 0.02 Absolute Neuts (auto) 1.7 L Absolute Nucleated RBC 0.000 Nucleated RBC % (auto) 0.0 Anion Gap 11 L Estim Creat Clear Calc 18.5 Estimated GFR 22 Random Glucose 92 Calcium 8.7 D Crossmatch See Detail Microbiology Microbiology Results: Microbiology 02/24/24 16:42 Blood Culture - Preliminary Blood - Venous Prelim: GNR Gram Stain only 02/24/24 16:03 Blood Culture - Final Blood - Venous Stenotrophomonas maltophilia 02/24/24 15:50 Blood Culture - Final Blood - Central Line Stenotrophomonas maltophilia 02/24/24 18:18 Urine Culture - Final Urine Catheterized - [place] Catheter Klebsiella pneumoniae Assessment and Plan (1) UTI (urinary tract infection): Status: Acute Plan 73F PMH copd, breast ca, small cell lung ca on chemo, pancytopenia, htn, presented with ams Acute metabolic encephalopathy due to klebsiella urinary tract infection complicated bystrenotrophomonas bacteremia Continue ceftriaxone, follow-up repeat cultures ID eval No sepsis, pancytopenia is chronic due to chemotherapy DON on CKD 3 Likely due to above, monitor,s stable small cell lung ca on chemo complicated by pancytopenia transfused 1 unit prbc 02/26/24, improved appropriately COPD Stable Hypertension Continue carvedilol, hydralazine DVT prophylaxis-mechanical due to thrombocytopenia Full code reason for continued hospitalization: Awaiting repeat cultures Quality Stroke Does the patient have a stroke diagnosis?: No VTE Prior VTE?: No VTE Risk Level:: Medical - moderate - high VTE Device Contraindication: N/A - Device Ordered VTE Drug Contraindication: Treatment Not Indicated
[2024-02-27] MEDS: Melatonin 3 MG TABLET 6 MG PO (20:23)
[2024-02-27] MEDS: traZODone HCL 50 MG TABLET 150 MG PO (20:23)
[2024-02-27] MEDS: cefTRIAXone sodium 2 GM VIAL IVPUSH (20:30)
[2024-02-28] VITALS (16 sets, daily range): BP systolic 138–179; BP diastolic 56–84; PULSE 60–72; RESP 14–20; TEMP 36.1–36.9; O2SAT 97–98
[2024-02-28] MEDS: HYDROmorphone HCl 1 MG/ML SYRINGE IVPUSH ×10 (00:22→23:07)
[2024-02-28 06:42] LABS: Anion Gap 14 (12-20); Blood Urea Nitrogen 35 mg/dL (9-16); Calcium 8.6 mg/dL (8.4-10.2); Carbon Dioxide 15 mmol/L (22-29); Chloride 115 mmol/L (96-108); Creatinine Clr Calc Pharmacy 20.7; Estimated Glomerular Filt Rate 25; Glucose Random 76 mg/dL (60-115); Potassium 4.6 mmol/L (3.3-5.1); Sodium 139 mmol/L (135-145)
[2024-02-28 06:49] LABS: Hematocrit 27.8 % (37.0-47.0); Hemoglobin 9.1 g/dl (12.0-16.0); Mean Corpuscular HGB Conc 32.7 g/dl (31.0-35.0); Mean Corpuscular Hemoglobin 29.9 pg (27.0-33.0); Mean Corpuscular Volume 91.4 fL (80.0-98.0); Red Blood Count 3.04 X10*6/uL (4.20-5.50); Red Cell Distribution Width 17.8 % (11.0-16.0); White Blood Count 2.7 X10*3/uL (4.8-10.8)
[2024-02-28 06:51] LABS: Platelet Count 39 X10*3/uL (160-400)
[2024-02-28] MEDS: hydrALAZINE HCl 50 MG TABLET 100 MG PO ×2 (09:11→20:19)
[2024-02-28] MEDS: Sodium Bicarbonate 650 MG TABLET PO ×3 (09:11→20:19)
[2024-02-28] MEDS: amLODIPine Besylate 5 MG TABLET PO (09:11)
[2024-02-28] MEDS: Thiamine HCL 100 MG TABLET PO (09:11)
[2024-02-28] MEDS: carvediloL 12.5 MG TABLET PO ×2 (09:11→16:20)
[2024-02-28] MEDS: Folic Acid 1 MG TABLET PO (09:11)
[2024-02-28] MEDS: 0.9 % Sodium Chloride Flush 3 ML SYRINGE IVFLUSH ×2 (09:12→16:20)
--- NOTE | 2024-02-28 10:56 | P.PNIM_ITS ---
Subjective Subjective Date of Service: 02/28/24 Interval History: feeling better today Physical Exam 2 Vital Signs: Vital Signs: Last Vital Signs Temp 97.6 F 02/28/24 08:00 Pulse 64 02/28/24 09:11 Resp 17 02/28/24 08:00 BP 170/69 H 02/28/24 09:11 Pulse Ox 98 02/28/24 08:00 O2 Del Method Room Air 02/28/24 08:00 BMI result Body Mass Index 26.4 General: AO X 3, no acute distress Resp: CTA bilateral, no accessory muscles used CVS: S1,S2,RRR GI: soft, non tender, non distended Neuro: motor grossly intact, alert Psych: appropriate affect, appropriate insight Objective Data Active Medications Acetaminophen (Acetaminophen 325 Mg Tablet) 975 mg PO Q6H PRN PRN Reason: Pain, Mild (Pain Scale 1-3), fever or headache Last Admin: 02/26/24 00:48 Dose: 975 mg Documented By: ARUN Albuterol/Ipratropium (Albuterol/Iprat 2.5/0.5mg 3 Ml Ampul.Neb) 3 ml INHALE Q4H PRN PRN Reason: Shortness Of Breath Amlodipine Besylate (Amlodipine Besylate 5 Mg Tablet) 5 mg PO DAILY [facility]; Protocol Last Admin: 02/28/24 09:11 Dose: 5 mg Documented By: RICHY Calcium Carbonate (Calcium Carbonate 750 Mg Tab.Chew) 750 mg PO Q4H PRN PRN Reason: Heartburn Carvedilol (Carvedilol 12.5 Mg Tablet) 12.5 mg PO BIDWM [facility]; Protocol Last Admin: 02/28/24 09:11 Dose: 12.5 mg Documented By: RICHY Ceftriaxone Sodium (Ceftriaxone Sodium 2 Gm Vial) 2 gm IVPUSH Q24H SADE Last Admin: 02/27/24 20:30 Dose: 2 gm Documented By: LYNETTE Clonazepam (Clonazepam 0.5 Mg Tablet) 0.5 mg PO BID PRN PRN Reason: Muscle Spasm Last Admin: 02/26/24 16:12 Dose: 0.5 mg Documented By: OLGA Folic Acid (Folic Acid 1 Mg Tablet) 1 mg PO DAILY [facility] Last Admin: 02/28/24 09:11 Dose: 1 mg Documented By: RICHY Hydralazine HCl (Hydralazine Hcl 50 Mg Tablet) 100 mg PO BID [facility]; Protocol Last Admin: 02/28/24 09:11 Dose: 100 mg Documented By: RICHY Hydromorphone HCl (Hydromorphone Hcl 1 Mg/Ml Syringe) 1 mg IVPUSH Q2H PRN; Protocol PRN Reason: Pain, Severe (Pain Scale 7-10) Last Admin: 02/28/24 09:14 Dose: 1 mg Documented By: RICHY Magnesium Hydroxide (Milk Of Magnesia 30 Ml Oral.Susp) 30 ml PO DAILY PRN PRN Reason: Constipation Melatonin (Melatonin 3 Mg Tablet) 6 mg PO BEDTIME PRN PRN Reason: Insomnia Last Admin: 02/27/24 20:23 Dose: 6 mg Documented By: LYNETTE Ondansetron HCl (Ondansetron Hcl 4 Mg/2 Ml Vial) 4 mg IVPUSH Q8H PRN PRN Reason: Nausea and Vomiting Polyethylene Glycol (Polyethylene Glycol 3350 17 Gm Powd.Pack) 17 gm PO DAILY [facility] Last Admin: 02/28/24 09:12 Dose: Not Given Documented By: RICHY Non-Admin Reason: Patient Refused Senna (Sennosides 8.6 Mg Tablet) 17.2 mg PO BEDTIME [facility] Last Admin: 02/27/24 20:23 Dose: Not Given Documented By: LYNETTE Non-Admin Reason: Patient Refused Sodium Bicarbonate (Sodium Bicarbonate 650 Mg Tablet) 650 mg PO TID [facility] Last Admin: 02/28/24 09:11 Dose: 650 mg Documented By: RICHY Sodium Chloride (0.9 % Sodium Chloride Flush 3 Ml Syringe) [facility] Last Admin: 02/28/24 09:12 Dose: 3 ml Documented By: RICHY Thiamine HCl (Thiamine Hcl 100 Mg Tablet) 100 mg PO DAILY [facility] Last Admin: 02/28/24 09:11 Dose: 100 mg Documented By: RICHY Trazodone HCl (Trazodone Hcl 50 Mg Tablet) 150 mg PO BEDTIME [facility] Last Admin: 02/27/24 20:23 Dose: 150 mg Documented By: LYNETTE Labs 02/28/24 06:03 02/28/24 06:03 Labs: Laboratory Results - last 24 hr 02/28/24 06:03 MCV 91.4 MCH 29.9 MCHC 32.7 RDW 17.8 H Plt Count 39 L MPV 11.0 Absolute Nucleated RBC 0.000 Nucleated RBC % (auto) 0.0 Anion Gap 14 Estim Creat Clear Calc 20.7 Estimated GFR 25 Random Glucose 76 Calcium 8.6 Microbiology Microbiology Results: Microbiology 02/24/24 16:42 Blood Culture - Final Blood - Venous Stenotrophomonas maltophilia 02/24/24 16:03 Blood Culture - Final Blood - Venous Stenotrophomonas maltophilia 02/24/24 15:50 Blood Culture - Final Blood - Central Line Stenotrophomonas maltophilia 02/24/24 18:18 Urine Culture - Final Urine Catheterized - [place] Catheter Klebsiella pneumoniae Assessment and Plan (1) UTI (urinary tract infection): Status: Acute Plan 73F PMH copd, breast ca, small cell lung ca on chemo, pancytopenia, htn, presented with ams Acute metabolic encephalopathy due to klebsiella urinary tract infection complicated by strenotrophomonas bacteremia changed ceftriaxone to bactrim DS times one, then SS bid (GFR 25), for 14 days. ID eval No sepsis, pancytopenia is chronic due to chemotherapy will remove picc, and replace when negative cutlure DON on CKD 3 Likely due to above, monitor stable small cell lung ca on chemo complicated by pancytopenia transfused 1 unit prbc 02/26/24, improved appropriately COPD Stable Hypertension Continue carvedilol, hydralazine DVT prophylaxis-mechanical due to thrombocytopenia Full code reason for continued hospitalization: Awaiting repeat cultures Quality Stroke Does the patient have a stroke diagnosis?: No VTE Prior VTE?: No VTE Risk Level:: Medical - moderate - high VTE Device Contraindication: N/A - Device Ordered VTE Drug Contraindication: Treatment Not Indicated
[2024-02-28] MEDS: Sulfamethox/Trimeth 800/160 TABLET 1 TAB PO (11:38)
--- NOTE | 2024-02-28 13:16 | MHC.CM.PN ---
Per rounds, pt. is still acute, DCP: return to [facility] via BLS.
[2024-02-28] MEDS: ALPRAZolam 0.25 MG TABLET PO (16:20)
[2024-02-28] MEDS: Lidocaine 4 % Patch ADH..PATCH 1 PATCH TRANSDERMA (16:27)
[2024-02-28] MEDS: traZODone HCL 50 MG TABLET 150 MG PO (20:19)
[2024-02-29] VITALS (7 sets, daily range): BP systolic 116–172; BP diastolic 60–91; PULSE 61–97; RESP 17–20; TEMP 36.1–36.7; O2SAT 95–99
[2024-02-29] MEDS: HYDROmorphone HCl 1 MG/ML SYRINGE IVPUSH ×9 (03:53→22:38)
[2024-02-29 06:33] LABS: Hematocrit 25.4 % (37.0-47.0); Hemoglobin 8.4 g/dl (12.0-16.0); Mean Corpuscular HGB Conc 33.1 g/dl (31.0-35.0); Mean Corpuscular Hemoglobin 29.7 pg (27.0-33.0); Mean Corpuscular Volume 89.8 fL (80.0-98.0); Mean Platelet Volume 10.8 fL (9.4-12.3); Red Blood Count 2.83 X10*6/uL (4.20-5.50); Red Cell Distribution Width 17.4 % (11.0-16.0)
[2024-02-29 06:36] LABS: Platelet Count 34 X10*3/uL (160-400); White Blood Count 2.2 X10*3/uL (4.8-10.8)
[2024-02-29 06:46] LABS: Anion Gap 12 (12-20); Blood Urea Nitrogen 31 mg/dL (9-16); Calcium 8.5 mg/dL (8.4-10.2); Carbon Dioxide 18 mmol/L (22-29); Chloride 114 mmol/L (96-108); Creatinine Clr Calc Pharmacy 21.9; Estimated Glomerular Filt Rate 27; Glucose Random 84 mg/dL (60-115); Potassium 4.3 mmol/L (3.3-5.1); Sodium 140 mmol/L (135-145)
[2024-02-29] MEDS: Sodium Bicarbonate 650 MG TABLET PO ×3 (08:56→20:14)
[2024-02-29] MEDS: Sulfamethox/Trimeth 400/80 TABLET 1 TAB PO ×2 (08:56→20:13)
[2024-02-29] MEDS: Lidocaine 4 % Patch ADH..PATCH 1 PATCH TRANSDERMA (08:57)
[2024-02-29] MEDS: carvediloL 12.5 MG TABLET PO ×2 (08:57→15:57)
[2024-02-29] MEDS: clonazePAM 0.5 MG TABLET PO ×2 (08:57→12:47)
[2024-02-29] MEDS: Thiamine HCL 100 MG TABLET PO (08:57)
[2024-02-29] MEDS: hydrALAZINE HCl 50 MG TABLET 100 MG PO ×2 (08:57→20:13)
[2024-02-29] MEDS: amLODIPine Besylate 5 MG TABLET PO (08:57)
[2024-02-29] MEDS: Folic Acid 1 MG TABLET PO (08:57)
[2024-02-29] MEDS: 0.9 % Sodium Chloride Flush 3 ML SYRINGE IVFLUSH ×3 (08:58→22:38)
--- NOTE | 2024-02-29 09:19 | HO.PM.IMPN ---
Subjective Subjective Date of Service: 02/29/24 Interval History: feeling better today Physical Exam Vital Signs: Vital Signs: Last Vital Signs Temp 97.0 F 02/29/24 07:18 Pulse 69 02/29/24 07:18 Resp 17 02/29/24 07:18 BP 145/77 H 02/29/24 07:18 Pulse Ox 96 02/29/24 07:18 O2 Del Method Room Air 02/29/24 07:18 BMI result Body Mass Index 26.4 General: AO X 3, no acute distress Resp: CTA bilateral, no accessory muscles used CVS: S1,S2,RRR GI: soft, non tender, non distended Neuro: motor grossly intact, alert Psych: appropriate affect, appropriate insight Objective Data Active Medications Acetaminophen (Acetaminophen 325 Mg Tablet) 975 mg PO Q6H PRN PRN Reason: Pain, Mild (Pain Scale 1-3), fever or headache Last Admin: 02/26/24 00:48 Dose: 975 mg Documented By: ARUN Albuterol/Ipratropium (Albuterol/Iprat 2.5/0.5mg 3 Ml Ampul.Neb) 3 ml INHALE Q4H PRN PRN Reason: Shortness Of Breath Amlodipine Besylate (Amlodipine Besylate 5 Mg Tablet) 5 mg PO DAILY [facility]; Protocol Last Admin: 02/29/24 08:57 Dose: 5 mg Documented By: CHANCE Calcium Carbonate (Calcium Carbonate 750 Mg Tab.Chew) 750 mg PO Q4H PRN PRN Reason: Heartburn Carvedilol (Carvedilol 12.5 Mg Tablet) 12.5 mg PO BIDWM [facility]; Protocol Last Admin: 02/29/24 08:57 Dose: 12.5 mg Documented By: CHANCE Clonazepam (Clonazepam 0.5 Mg Tablet) 0.5 mg PO BID PRN PRN Reason: Muscle Spasm Last Admin: 02/29/24 08:57 Dose: 0.5 mg Documented By: CHANCE Folic Acid (Folic Acid 1 Mg Tablet) 1 mg PO DAILY [facility] Last Admin: 02/29/24 08:57 Dose: 1 mg Documented By: CHANCE Hydralazine HCl (Hydralazine Hcl 50 Mg Tablet) 100 mg PO BID [facility]; Protocol Last Admin: 02/29/24 08:57 Dose: 100 mg Documented By: CHANCE Hydromorphone HCl (Hydromorphone Hcl 1 Mg/Ml Syringe) 1 mg IVPUSH Q2H PRN; Protocol PRN Reason: Pain, Severe (Pain Scale 7-10) Last Admin: 02/29/24 08:59 Dose: 1 mg Documented By: CHANCE Lidocaine (Lidocaine 4 % Patch Adh..Patch) 1 patch TRANSDERMA DAILY [facility]; Protocol Last Admin: 02/29/24 08:57 Dose: 1 patch Documented By: CHANCE Magnesium Hydroxide (Milk Of Magnesia 30 Ml Oral.Susp) 30 ml PO DAILY PRN PRN Reason: Constipation Melatonin (Melatonin 3 Mg Tablet) 6 mg PO BEDTIME PRN PRN Reason: Insomnia Last Admin: 02/27/24 20:23 Dose: 6 mg Documented By: LYNETTE Ondansetron HCl (Ondansetron Hcl 4 Mg/2 Ml Vial) 4 mg IVPUSH Q8H PRN PRN Reason: Nausea and Vomiting Polyethylene Glycol (Polyethylene Glycol 3350 17 Gm Powd.Pack) 17 gm PO DAILY [facility] Last Admin: 02/29/24 09:02 Dose: Not Given Documented By: CHANCE Non-Admin Reason: Patient Refused Senna (Sennosides 8.6 Mg Tablet) 17.2 mg PO BEDTIME [facility] Last Admin: 02/28/24 21:53 Dose: Not Given Documented By: LASHON Non-Admin Reason: Patient Refused Sodium Bicarbonate (Sodium Bicarbonate 650 Mg Tablet) 650 mg PO TID [facility] Last Admin: 02/29/24 08:56 Dose: 650 mg Documented By: CHANCE Sodium Chloride (0.9 % Sodium Chloride Flush 3 Ml Syringe) 3 ml IVFLUSH QSHIFT [facility] Last Admin: 02/29/24 08:58 Dose: 3 ml Documented By: CHANCE Thiamine HCl (Thiamine Hcl 100 Mg Tablet) 100 mg PO DAILY [facility] Last Admin: 02/29/24 08:57 Dose: 100 mg Documented By: CHANCE Trazodone HCl (Trazodone Hcl 50 Mg Tablet) 150 mg PO BEDTIME [facility] Last Admin: 02/28/24 20:19 Dose: 150 mg Documented By: LASHON Trimethoprim/Sulfamethoxazole (Sulfamethox/Trimeth 400/80 Tablet) 1 tab PO BID [facility] Last Admin: 02/29/24 08:56 Dose: 1 tab Documented By: CHANCE Labs 02/29/24 06:02 02/29/24 06:02 Labs: Laboratory Results - last 24 hr 02/29/24 06:02 MCV 89.8 MCH 29.7 MCHC 33.1 RDW 17.4 H Plt Count 34 L MPV 10.8 Absolute Nucleated RBC 0.000 Nucleated RBC % (auto) 0.0 Anion Gap 12 Estim Creat Clear Calc 21.9 Estimated GFR 27 Random Glucose 84 Calcium 8.5 Microbiology Microbiology Results: Microbiology 02/28/24 06:03 Blood Culture - Preliminary Blood - Venous No growth after 24 hours. 02/28/24 06:05 Blood Culture - Preliminary Blood - Venous No growth after 24 hours. 02/24/24 16:42 Blood Culture - Final Blood - Venous Stenotrophomonas maltophilia Assessment and Plan (1) UTI (urinary tract infection): Status: Acute Plan 73F PMH copd, breast ca, small cell lung ca on chemo, pancytopenia, htn, presented with ams Acute metabolic encephalopathy due to klebsiella urinary tract infection complicated by strenotrophomonas bacteremia changed ceftriaxone to bactrim DS times one, then SS bid (GFR 25), for 14 days. ID eval No sepsis, pancytopenia is chronic due to chemotherapy will remove picc, and replace when negative cutlure DON on CKD 3 Likely due to above, monitor stable small cell lung ca on chemo complicated by pancytopenia transfused 1 unit prbc 02/26/24, improved appropriately COPD Stable Hypertension Continue carvedilol, hydralazine DVT prophylaxis-mechanical due to thrombocytopenia Full code reason for continued hospitalization: Awaiting repeat cultures Quality Stroke Does the patient have a stroke diagnosis?: No VTE Prior VTE?: No VTE Risk Level:: Medical - moderate - high VTE Device Contraindication: N/A - Device Ordered VTE Drug Contraindication: Treatment Not Indicated
--- NOTE | 2024-02-29 13:17 | PM.EVENT ---
Event Note Date of Service: 02/29/24 Event Note: RUE picc removed, measured 38cm, c/w length from [facility] report. Time Spent With Patient Time: Total time managing care of this patient today ____ minutes.
[2024-02-29] MEDS: Sennosides 8.6 MG TABLET 17.2 MG PO (20:11)
[2024-02-29] MEDS: Acetaminophen 325 MG TABLET 975 MG PO (20:12)
[2024-02-29] MEDS: traZODone HCL 50 MG TABLET 150 MG PO (20:12)
[2024-03-01] VITALS (9 sets, daily range): BP systolic 128–157; BP diastolic 61–74; PULSE 60–75; RESP 16–20; TEMP 36.2–36.8; O2SAT 97–100
[2024-03-01] MEDS: HYDROmorphone HCl 1 MG/ML SYRINGE IVPUSH ×8 (01:18→22:32)
[2024-03-01] MEDS: Sulfamethox/Trimeth 400/80 TABLET 1 TAB PO ×2 (09:10→20:01)
[2024-03-01] MEDS: carvediloL 12.5 MG TABLET PO ×2 (09:10→17:59)
[2024-03-01] MEDS: Thiamine HCL 100 MG TABLET PO (09:10)
[2024-03-01] MEDS: Folic Acid 1 MG TABLET PO (09:10)
[2024-03-01] MEDS: hydrALAZINE HCl 50 MG TABLET 100 MG PO ×2 (09:10→20:01)
[2024-03-01] MEDS: amLODIPine Besylate 5 MG TABLET PO (09:10)
[2024-03-01] MEDS: Sodium Bicarbonate 650 MG TABLET PO ×3 (09:11→20:00)
[2024-03-01] MEDS: 0.9 % Sodium Chloride Flush 3 ML SYRINGE IVFLUSH ×3 (09:11→20:02)
--- NOTE | 2024-03-01 09:47 | P.PNIM_ITS ---
Subjective Subjective Date of Service: 03/01/24 Interval History: feeling better today Physical Exam 2 Vital Signs: Vital Signs: Last Vital Signs Temp 97.1 F 03/01/24 07:09 Pulse 65 03/01/24 07:09 Resp 18 03/01/24 07:09 BP 128/63 03/01/24 07:09 Pulse Ox 98 03/01/24 07:09 O2 Del Method Room Air 03/01/24 07:09 BMI result Body Mass Index 26.4 General: AO X 3, no acute distress Resp: CTA bilateral, no accessory muscles used CVS: S1,S2,RRR GI: soft, non tender, non distended Neuro: motor grossly intact, alert Psych: appropriate affect, appropriate insight Objective Data Active Medications Acetaminophen (Acetaminophen 325 Mg Tablet) 975 mg PO Q6H PRN PRN Reason: Pain, Mild (Pain Scale 1-3), fever or headache Last Admin: 02/29/24 20:12 Dose: 975 mg Documented By: LISBETH Albuterol/Ipratropium (Albuterol/Iprat 2.5/0.5mg 3 Ml Ampul.Neb) 3 ml INHALE Q4H PRN PRN Reason: Shortness Of Breath Amlodipine Besylate (Amlodipine Besylate 5 Mg Tablet) 5 mg PO DAILY [facility]; Protocol Last Admin: 03/01/24 09:10 Dose: 5 mg Documented By: CATHLEEN Calcium Carbonate (Calcium Carbonate 750 Mg Tab.Chew) 750 mg PO Q4H PRN PRN Reason: Heartburn Carvedilol (Carvedilol 12.5 Mg Tablet) 12.5 mg PO BIDWM [facility]; Protocol Last Admin: 03/01/24 09:10 Dose: 12.5 mg Documented By: CATHLEEN Folic Acid (Folic Acid 1 Mg Tablet) 1 mg PO DAILY [facility] Last Admin: 03/01/24 09:10 Dose: 1 mg Documented By: CATHLEEN Hydralazine HCl (Hydralazine Hcl 50 Mg Tablet) 100 mg PO BID [facility]; Protocol Last Admin: 03/01/24 09:10 Dose: 100 mg Documented By: ACTHLEEN Hydromorphone HCl (Hydromorphone Hcl 1 Mg/Ml Syringe) 1 mg IVPUSH Q2H PRN; Protocol PRN Reason: Pain, Severe (Pain Scale 7-10) Last Admin: 03/01/24 09:12 Dose: 1 mg Documented By: CATHLEEN Lidocaine (Lidocaine 4 % Patch Adh..Patch) 1 patch TRANSDERMA DAILY [facility]; Protocol Last Admin: 03/01/24 09:11 Dose: Not Given Documented By: CATHLEEN Non-Admin Reason: Patient Refused Magnesium Hydroxide (Milk Of Magnesia 30 Ml Oral.Susp) 30 ml PO DAILY PRN PRN Reason: Constipation Melatonin (Melatonin 3 Mg Tablet) 6 mg PO BEDTIME PRN PRN Reason: Insomnia Last Admin: 02/27/24 20:23 Dose: 6 mg Documented By: LYNETTE Ondansetron HCl (Ondansetron Hcl 4 Mg/2 Ml Vial) 4 mg IVPUSH Q8H PRN PRN Reason: Nausea and Vomiting Polyethylene Glycol (Polyethylene Glycol 3350 17 Gm Powd.Pack) 17 gm PO DAILY [facility] Last Admin: 03/01/24 09:11 Dose: Not Given Documented By: CATHLEEN Non-Admin Reason: Patient Refused Senna (Sennosides 8.6 Mg Tablet) 17.2 mg PO BEDTIME [facility] Last Admin: 02/29/24 20:11 Dose: 17.2 mg Documented By: LISBETH Sodium Bicarbonate (Sodium Bicarbonate 650 Mg Tablet) 650 mg PO TID [facility] Last Admin: 03/01/24 09:11 Dose: 650 mg Documented By: CATHLEEN Sodium Chloride (0.9 % Sodium Chloride Flush 3 Ml Syringe) 3 ml IVFLUSH QSHIFT [facility] Last Admin: 03/01/24 09:11 Dose: 3 ml Documented By: CATHLEEN Thiamine HCl (Thiamine Hcl 100 Mg Tablet) 100 mg PO DAILY [facility] Last Admin: 03/01/24 09:10 Dose: 100 mg Documented By: CATHLEEN Trazodone HCl (Trazodone Hcl 50 Mg Tablet) 150 mg PO BEDTIME [facility] Last Admin: 02/29/24 20:12 Dose: 150 mg Documented By: LISBETH Trimethoprim/Sulfamethoxazole (Sulfamethox/Trimeth 400/80 Tablet) 1 tab PO BID [facility] Last Admin: 03/01/24 09:10 Dose: 1 tab Documented By: CATHLEEN Labs 02/29/24 06:02 02/29/24 06:02 Microbiology Microbiology Results: Microbiology 02/28/24 06:03 Blood Culture - Preliminary Blood - Venous Prelim: GNR Gram Stain only 02/28/24 06:05 Blood Culture - Preliminary Blood - Venous No growth after 48 hours. Assessment and Plan (1) UTI (urinary tract infection): Status: Acute Plan 73F PMH copd, breast ca, small cell lung ca on chemo, pancytopenia, htn, presented with ams Acute metabolic encephalopathy due to klebsiella urinary tract infection complicated by strenotrophomonas bacteremia changed ceftriaxone to bactrim DS times one, then SS bid (GFR 25), for 14 days. ID eval No sepsis, pancytopenia is chronic due to chemotherapy picc removed 02/29/24, repeat culture from 02/28/24 still positive, check repeat 03/01/24, will need new picc for chemo DON on CKD 3 Likely due to above, monitor stable small cell lung ca on chemo complicated by pancytopenia transfused 1 unit prbc 02/26/24, improved appropriately COPD Stable Hypertension Continue carvedilol, hydralazine DVT prophylaxis-mechanical due to thrombocytopenia Full code reason for continued hospitalization: Awaiting repeat cultures Quality Stroke Does the patient have a stroke diagnosis?: No VTE Prior VTE?: No VTE Risk Level:: Medical - moderate - high VTE Device Contraindication: N/A - Device Ordered VTE Drug Contraindication: Treatment Not Indicated
[2024-03-01] MEDS: traZODone HCL 50 MG TABLET 150 MG PO (19:58)
--- NOTE | 2024-03-01 23:30 | P.CNID_ITS ---
History of Present Illness Data of Consult Service Date: 03/01/24 Requesting physician: Ethan Sullivan Primary Care Provider: Eleazar Le III, MD HPI Reason for consult: multiple bacteremia She presents to ER with confusion as well as neck and chest pain. She has COPD and small cell and breast cancer. She has GFR of 27. She is getting new chemotherapy regimen. She has stenotrophomonas blood and klebsiella urine 02/23 and further gram negative blood culture pending. Review of Systems 2 Review of Systems: Yes all other systems are reviewed and are negative [facility] [place] Past Medical History Medical History (Updated 03/01/24 @ 23:34 by Pepper Car MD) Bacteremia HBP (high blood pressure) Chronic diarrhea CKD (chronic kidney disease) Breast cancer HTN (hypertension) Family History Family history: reviewed and not pertinent Social History Social History Household Members: None Housing: [facility] Do you presently have visiting nurse or other home services: Yes Alcohol intake: never Patient Tobacco Use Status: Former Tobacco user Tobacco use type: Cigarette Cigarette Packs Per Day: 1 Cigarettes Per Day: 20.0 Years Smoked: 50 e-Cigarette/Vaping Use: Never Used Second Hand Smoke Exposure: No Substance Use Type: Marijuana Advance Directives Date on File: 10/25/23 service: No Current occupational status: retired and disabled Meds Allergies Allergy/AdvReac Type Severity Reaction Status Date / Time carisoprodol [From Soma] Allergy Hives Verified 02/24/24 14:39 codeine Allergy Itching Verified 02/24/24 14:39 Active Medications: Current Medications Acetaminophen (Acetaminophen 325 Mg Tablet) 975 mg PO Q6H PRN PRN Reason: Pain, Mild (Pain Scale 1-3), fever or headache Last Admin: 02/29/24 20:12 Dose: 975 mg Albuterol/Ipratropium (Albuterol/Iprat 2.5/0.5mg 3 Ml Ampul.Neb) 3 ml INHALE Q4H PRN PRN Reason: Shortness Of Breath Amlodipine Besylate (Amlodipine Besylate 5 Mg Tablet) 5 mg PO DAILY SADE; Protocol Last Admin: 03/01/24 09:10 Dose: 5 mg Calcium Carbonate (Calcium Carbonate 750 Mg Tab.Chew) 750 mg PO Q4H PRN PRN Reason: Heartburn Carvedilol (Carvedilol 12.5 Mg Tablet) 12.5 mg PO BIDWM [facility]; Protocol Last Admin: 03/01/24 17:59 Dose: 12.5 mg Folic Acid (Folic Acid 1 Mg Tablet) 1 mg PO DAILY [facility] Last Admin: 03/01/24 09:10 Dose: 1 mg Hydralazine HCl (Hydralazine Hcl 50 Mg Tablet) 100 mg PO BID [facility]; Protocol Last Admin: 03/01/24 20:01 Dose: 100 mg Hydromorphone HCl (Hydromorphone Hcl 1 Mg/Ml Syringe) 1 mg IVPUSH Q2H PRN; Protocol PRN Reason: Pain, Severe (Pain Scale 7-10) Last Admin: 03/01/24 22:32 Dose: 1 mg Lidocaine (Lidocaine 4 % Patch Adh..Patch) 1 patch TRANSDERMA DAILY [facility]; Protocol Last Admin: 03/01/24 09:11 Dose: Not Given Magnesium Hydroxide (Milk Of Magnesia 30 Ml Oral.Susp) 30 ml PO DAILY PRN PRN Reason: Constipation Melatonin (Melatonin 3 Mg Tablet) 6 mg PO BEDTIME PRN PRN Reason: Insomnia Last Admin: 02/27/24 20:23 Dose: 6 mg Ondansetron HCl (Ondansetron Hcl 4 Mg/2 Ml Vial) 4 mg IVPUSH Q8H PRN PRN Reason: Nausea and Vomiting Polyethylene Glycol (Polyethylene Glycol 3350 17 Gm Powd.Pack) 17 gm PO DAILY [facility] Last Admin: 03/01/24 09:11 Dose: Not Given Senna (Sennosides 8.6 Mg Tablet) 17.2 mg PO BEDTIME [facility] Last Admin: 03/01/24 20:01 Dose: Not Given Sodium Bicarbonate (Sodium Bicarbonate 650 Mg Tablet) 650 mg PO TID [facility] Last Admin: 03/01/24 20:00 Dose: 650 mg Sodium Chloride (0.9 % Sodium Chloride Flush 3 Ml Syringe) 3 ml IVFLUSH QSHIFT [facility] Last Admin: 03/01/24 20:02 Dose: 3 ml Thiamine HCl (Thiamine Hcl 100 Mg Tablet) 100 mg PO DAILY [facility] Last Admin: 03/01/24 09:10 Dose: 100 mg Trazodone HCl (Trazodone Hcl 50 Mg Tablet) 150 mg PO BEDTIME [facility] Last Admin: 03/01/24 19:58 Dose: 150 mg Trimethoprim/Sulfamethoxazole (Sulfamethox/Trimeth 400/80 Tablet) 1 tab PO BID SADE Last Admin: 03/01/24 20:01 Dose: 1 tab Home Medications ?Medication ?Instructions ?Recorded ?Confirmed ?Last Taken ?Type acetaminophen 325 mg tablet 650 mg PO Q6H PRN Pain/Fever 11/14/23 02/24/24 Unknown History bisacodyl 10 mg rectal suppository 10 mg MN DAILY PRN Constipation 11/14/23 02/24/24 Unknown History carvedilol 12.5 mg tablet 12.5 mg PO BID 11/14/23 02/24/24 Unknown History folic acid 1 mg tablet 1 mg PO DAILY 11/14/23 02/24/24 Unknown History hydralazine 100 mg tablet 100 mg PO BID 11/14/23 02/24/24 Unknown History hydromorphone 2 mg tablet 2 mg PO Q6H PRN Pain, Moderate 11/14/23 02/24/24 Unknown History hydromorphone 2 mg tablet 4 mg PO Q6H PRN Pain, Severe 11/14/23 02/24/24 Unknown History ipratropium 0.5 mg-albuterol 3 mg 3 ml inhalation Q4H PRN Shortness 11/14/23 02/24/24 Unknown History (2.5 mg base)/3 mL nebulization Of Breath soln magnesium hydroxide 400 mg/5 mL 30 ml PO DAILY PRN Constipation 11/14/23 02/24/24 Unknown History oral suspension (Milk of Magnesia) ondansetron HCl 8 mg tablet 8 mg PO Q8H PRN Nausea And Vomiting 11/14/23 02/24/24 Unknown History polyethylene glycol 3350 17 17 g PO DAILY 11/14/23 02/24/24 Unknown History gram/dose oral powder (Miralax) sennosides 8.6 mg tablet (senna) 17.2 mg PO BEDTIME 11/14/23 02/24/24 Unknown History sodium phosphates 19 gram-7 118 ml MN DAILY PRN Constipation 11/14/23 02/24/24 Unknown History gram/118 mL enema (Fleet Enema) thiamine HCl (vitamin B1) 100 mg 100 mg PO DAILY 11/14/23 02/24/24 Unknown History tablet trazodone 100 mg tablet 100 mg PO BEDTIME 11/14/23 02/24/24 Unknown History trazodone 50 mg tablet 50 mg PO BEDTIME 11/14/23 02/24/24 Unknown History acetaminophen 325 mg tablet 650 mg PO DAILY pain 02/24/24 02/24/24 Unknown History clonazepam 0.5 mg tablet 0.5 mg PO BID PRN Muscle Spasm 02/24/24 02/24/24 Unknown History heparin lock flush (porcine) 10 10 unit IV Q12H 02/24/24 02/24/24 Unknown History unit/mL intravenous solution melatonin 10 mg tablet 10 mg PO BEDTIME PRN Sleep 02/24/24 02/24/24 Unknown History morphine 15 mg tablet,extended 15 mg PO DAILY 02/24/24 02/24/24 Unknown History release sodium chloride 0.9 % (flush) 10 ml IV BID 02/24/24 02/24/24 Unknown History umeclidinium 62.5 mcg-vilanterol 1 ea inhalation DAILY 02/24/24 02/24/24 Unknown History 25 mcg/actuation powdr for inhalation (Anoro Ellipta) Physical Exam 2 Vital Signs: Vital Signs: Last Vital Signs Temp 97.7 F 03/01/24 19:30 Pulse 74 03/01/24 19:30 Resp 18 03/01/24 19:30 BP 157/67 H 03/01/24 19:30 Pulse Ox 98 03/01/24 19:30 O2 Del Method Room Air 03/01/24 19:30 BMI result Body Mass Index 26.4 Const: General: cooperative HEENT: Head: Yes normal to inspection Face and sinus: Yes normal facial exam Mouth: Normal oral and palatal mucosa present Teeth and gingiva: d entition normal Eyes: General: appearance normal, both eyes and all related structures P upils: Equal, round and reactive pupils present Resp: Effort & Inspection: normal respiratory effort Cardio: Rate: regular rate Rhythm: regular rhythm GI: Palpation (GI): Soft to palpation and nontender : General: Yes no CVA tenderness Back/Spine/Pelvis: Back: no CVA tenderness Skin: General skin exam: no rashes or lesions noted Neuro: General: moves all extremities Cranial nerves: Yes Equal, round and reactive pupils present Extrem: General: Yes normal to inspection Psych: Appearance: grossly normal Mental Status: mental status grossly normal Affect: Hostile affect present and Irritable affect present A ttitude: Belligerent attititude/behavior present Thought process: Loose association thought process present Thought content: Normal thought content present Insight: Fair insight present (Psych) Judgement: Fair judgement present (Psych) Results Labs 02/29/24 06:02 02/29/24 06:02 Microbiology Microbiology Results: Microbiology 02/28/24 06:03 Blood - Venous Blood Culture - Preliminary Prelim: GNR Gram Stain only 02/28/24 06:05 Blood - Venous Blood Culture - Preliminary No growth after 48 hours. 02/24/24 16:42 Blood - Venous Blood Culture - Final Stenotrophomonas maltophilia 02/24/24 16:03 Blood - Venous Blood Culture - Final Stenotrophomonas maltophilia 02/24/24 15:50 Blood - Central Line Blood Culture - Final Stenotrophomonas maltophilia 02/24/24 18:18 Urine Catheterized - [place] Catheter Urine Culture - Final Klebsiella pneumoniae Assessment and Plan (1) UTI (urinary tract infection): Status: Acute (2) Encephalopathy: Status: Acute (3) Bacteremia: Status: Acute Plan Treat bacteremia with stenotrophomonas with Bactrim but watch creatinine and hyperkalemia. 14 days total if tolerated. Probable source lung. She is asking for pain medication for neck but do not see anything remarkable on CT,check MRI if persists and able.
[2024-03-02] VITALS (9 sets, daily range): BP systolic 139–175; BP diastolic 72–83; PULSE 66–80; RESP 16–18; TEMP 36.4–37.4; O2SAT 96–99
[2024-03-02] MEDS: HYDROmorphone HCl 1 MG/ML SYRINGE IVPUSH ×9 (03:47→22:51)
[2024-03-02] MEDS: 0.9 % Sodium Chloride Flush 3 ML SYRINGE IVFLUSH ×3 (07:59→20:27)
[2024-03-02] MEDS: hydrALAZINE HCl 50 MG TABLET 100 MG PO ×2 (07:59→20:26)
[2024-03-02] MEDS: Thiamine HCL 100 MG TABLET PO (08:00)
[2024-03-02] MEDS: carvediloL 12.5 MG TABLET PO ×2 (08:00→16:06)
[2024-03-02] MEDS: Folic Acid 1 MG TABLET PO (08:00)
[2024-03-02] MEDS: Sodium Bicarbonate 650 MG TABLET PO ×3 (08:00→20:27)
[2024-03-02] MEDS: amLODIPine Besylate 5 MG TABLET PO (08:00)
[2024-03-02] MEDS: Sulfamethox/Trimeth 400/80 TABLET 1 TAB PO ×2 (08:00→20:27)
--- NOTE | 2024-03-02 09:21 | HO.PM.IMPN ---
Subjective Subjective Date of Service: 03/02/24 Interval History: feeling better today Physical Exam Vital Signs: Vital Signs: Last Vital Signs Temp 98.6 F 03/02/24 06:59 Pulse 73 03/02/24 08:00 Resp 18 03/02/24 06:59 BP 169/73 H 03/02/24 08:00 Pulse Ox 97 03/02/24 06:59 O2 Del Method Room Air 03/02/24 06:59 BMI result Body Mass Index 26.4 Const: General: cooperative HEENT: Head: Yes normal to inspection Face and sinus: Yes normal facial exam Mouth: Normal oral and palatal mucosa present Teeth and gingiva: dentition normal Eyes: General: appearance normal, both eyes and all related structures Pupils: Equal, round and reactive pupils present Resp: Effort & Inspection: normal respiratory effort Cardio: Rate: regular rate Rhythm: regular rhythm GI: Palpation (GI): Soft to palpation and nontender : General: Yes no CVA tenderness Back/Spine/Pelvis: Back: no CVA tenderness Skin: General skin exam: no rashes or lesions noted Neuro: General: moves all extremities Cranial nerves: Yes Equal, round and reactive pupils present Extrem: General: Yes normal to inspection Psych: Appearance: grossly normal Mental Status: mental status grossly normal Affect: Hostile affect present and Irritable affect present Attitude: Belligerent attititude/behavior present Thought process: Loose association thought process present Thought content: Normal thought content present Insight: Fair insight present (Psych) Judgement: Fair judgement present (Psych) Objective Data Active Medications Acetaminophen (Acetaminophen 325 Mg Tablet) 975 mg PO Q6H PRN PRN Reason: Pain, Mild (Pain Scale 1-3), fever or headache Last Admin: 02/29/24 20:12 Dose: 975 mg Documented By: LISBETH Albuterol/Ipratropium (Albuterol/Iprat 2.5/0.5mg 3 Ml Ampul.Neb) 3 ml INHALE Q4H PRN PRN Reason: Shortness Of Breath Amlodipine Besylate (Amlodipine Besylate 5 Mg Tablet) 5 mg PO DAILY SADE; Protocol Last Admin: 03/02/24 08:00 Dose: 5 mg Documented By: RICHY Calcium Carbonate (Calcium Carbonate 750 Mg Tab.Chew) 750 mg PO Q4H PRN PRN Reason: Heartburn Carvedilol (Carvedilol 12.5 Mg Tablet) 12.5 mg PO BIDWM [facility]; Protocol Last Admin: 03/02/24 08:00 Dose: 12.5 mg Documented By: RICHY Folic Acid (Folic Acid 1 Mg Tablet) 1 mg PO DAILY [facility] Last Admin: 03/02/24 08:00 Dose: 1 mg Documented By: RICHY Hydralazine HCl (Hydralazine Hcl 50 Mg Tablet) 100 mg PO BID [facility]; Protocol Last Admin: 03/02/24 07:59 Dose: 100 mg Documented By: RICHY Hydromorphone HCl (Hydromorphone Hcl 1 Mg/Ml Syringe) 1 mg IVPUSH Q2H PRN; Protocol PRN Reason: Pain, Severe (Pain Scale 7-10) Last Admin: 03/02/24 07:59 Dose: 1 mg Documented By: RICHY Lidocaine (Lidocaine 4 % Patch Adh..Patch) 1 patch TRANSDERMA DAILY [facility]; Protocol Last Admin: 03/02/24 08:01 Dose: Not Given Documented By: RICHY Non-Admin Reason: Patient Refused Magnesium Hydroxide (Milk Of Magnesia 30 Ml Oral.Susp) 30 ml PO DAILY PRN PRN Reason: Constipation Melatonin (Melatonin 3 Mg Tablet) 6 mg PO BEDTIME PRN PRN Reason: Insomnia Last Admin: 02/27/24 20:23 Dose: 6 mg Documented By: LYNETTE Ondansetron HCl (Ondansetron Hcl 4 Mg/2 Ml Vial) 4 mg IVPUSH Q8H PRN PRN Reason: Nausea and Vomiting Polyethylene Glycol (Polyethylene Glycol 3350 17 Gm Powd.Pack) 17 gm PO DAILY [facility] Last Admin: 03/02/24 08:01 Dose: Not Given Documented By: RICHY Non-Admin Reason: Patient Refused Senna (Sennosides 8.6 Mg Tablet) 17.2 mg PO BEDTIME [facility] Last Admin: 03/01/24 20:01 Dose: Not Given Documented By: MARY Non-Admin Reason: Patient Refused Sodium Bicarbonate (Sodium Bicarbonate 650 Mg Tablet) 650 mg PO TID [facility] Last Admin: 03/02/24 08:00 Dose: 650 mg Documented By: RICHY Sodium Chloride (0.9 % Sodium Chloride Flush 3 Ml Syringe) 3 ml IVFLUSH QSHIFT [facility] Last Admin: 03/02/24 07:59 Dose: 3 ml Documented By: RICHY Thiamine HCl (Thiamine Hcl 100 Mg Tablet) 100 mg PO DAILY [facility] Last Admin: 03/02/24 08:00 Dose: 100 mg Documented By: RICHY Trazodone HCl (Trazodone Hcl 50 Mg Tablet) 150 mg PO BEDTIME [facility] Last Admin: 03/01/24 19:58 Dose: 150 mg Documented By: MARY Trimethoprim/Sulfamethoxazole (Sulfamethox/Trimeth 400/80 Tablet) 1 tab PO BID [facility] Last Admin: 03/02/24 08:00 Dose: 1 tab Documented By: RICHY Labs 02/29/24 06:02 02/29/24 06:02 Microbiology Microbiology Results: Microbiology 02/28/24 06:03 Blood Culture - Preliminary Blood - Venous Gram negative tom 02/28/24 06:05 Blood Culture - Preliminary Blood - Venous No growth after 48 hours. Assessment and Plan (1) UTI (urinary tract infection): Status: Acute Plan 73F PMH copd, breast ca, small cell lung ca on chemo, pancytopenia, htn, presented with ams Acute metabolic encephalopathy due to klebsiella urinary tract infection complicated by strenotrophomonas bacteremia changed ceftriaxone to bactrim DS times one, then SS bid (GFR 25), for 14 days. (end mar 14, 2024) ID appreciated No sepsis, pancytopenia is chronic due to chemotherapy picc removed 02/29/24, repeat culture from 02/28/24 still positive, check repeat 03/01/24, will need new access for chemo DON on CKD 3 Likely due to above, monitor stable small cell lung ca on chemo complicated by pancytopenia transfused 1 unit prbc 02/26/24, improved appropriately COPD Stable Hypertension Continue carvedilol, hydralazine DVT prophylaxis-mechanical due to thrombocytopenia Full code reason for continued hospitalization: Awaiting repeat cultures Quality Stroke Does the patient have a stroke diagnosis?: No VTE Prior VTE?: No VTE Risk Level:: Medical - moderate - high VTE Device Contraindication: N/A - Device Ordered VTE Drug Contraindication: Treatment Not Indicated
--- NOTE | 2024-03-02 15:15 | MHC.CM.PN ---
Per rounds, pt is not yet ready for DC, waiting for cultures to come back. Update sent to [facility], DCP is for her to return there.
[2024-03-02] MEDS: traZODone HCL 50 MG TABLET 150 MG PO (20:26)
[2024-03-02] MEDS: Melatonin 3 MG TABLET 6 MG PO (22:54)
[2024-03-03] VITALS (13 sets, daily range): BP systolic 141–174; BP diastolic 67–84; PULSE 61–69; RESP 18–20; TEMP 36.1–36.7; O2SAT 95–99; BMI 26.4
--- NOTE | 2024-03-03 01:09 | PM.EVENT ---
Event Note Date of Service: 03/03/24 Event Note: Blood culture 03/01, 03/12 GNR,One dose of ceftriaxone given in addition to Bactrim Time Spent With Patient Time: Total time managing care of this patient today ____ minutes.
[2024-03-03] MEDS: cefTRIAXone sodium 2 GM VIAL IVPUSH (02:09)
[2024-03-03] MEDS: HYDROmorphone HCl 1 MG/ML SYRINGE IVPUSH ×9 (02:09→23:25)
[2024-03-03 06:27] LABS: PLT CLUMP 1
[2024-03-03 06:29] LABS: Hematocrit 24.3 % (37.0-47.0); Hemoglobin 8.2 g/dl (12.0-16.0); Mean Corpuscular HGB Conc 33.7 g/dl (31.0-35.0); Mean Corpuscular Hemoglobin 29.8 pg (27.0-33.0); Mean Corpuscular Volume 88.4 fL (80.0-98.0); Mean Platelet Volume 11.1 fL (9.4-12.3); Red Blood Count 2.75 X10*6/uL (4.20-5.50); Red Cell Distribution Width 17.9 % (11.0-16.0)
[2024-03-03 06:30] LABS: Platelet Count 43 X10*3/uL (160-400)
[2024-03-03 06:44] LABS: Anion Gap 8 (12-20); Blood Urea Nitrogen 23 mg/dL (9-16); Calcium 8.9 mg/dL (8.4-10.2); Carbon Dioxide 22 mmol/L (22-29); Chloride 111 mmol/L (96-108); Creatinine Clr Calc Pharmacy 20.3; Estimated Glomerular Filt Rate 25; Glucose Random 92 mg/dL (60-115); Potassium 4.2 mmol/L (3.3-5.1); Sodium 137 mmol/L (135-145)
[2024-03-03] MEDS: hydrALAZINE HCl 50 MG TABLET 100 MG PO ×2 (07:35→19:58)
[2024-03-03] MEDS: 0.9 % Sodium Chloride Flush 3 ML SYRINGE IVFLUSH ×3 (07:35→19:58)
[2024-03-03] MEDS: Sulfamethox/Trimeth 400/80 TABLET 1 TAB PO ×2 (07:36→20:04)
[2024-03-03] MEDS: Thiamine HCL 100 MG TABLET PO (07:36)
[2024-03-03] MEDS: amLODIPine Besylate 5 MG TABLET PO (07:36)
[2024-03-03] MEDS: Sodium Bicarbonate 650 MG TABLET PO ×2 (07:36→19:58)
[2024-03-03] MEDS: Folic Acid 1 MG TABLET PO (07:36)
[2024-03-03] MEDS: carvediloL 12.5 MG TABLET PO ×2 (07:36→17:26)
--- NOTE | 2024-03-03 09:45 | HO.PM.IMPN ---
Subjective Subjective Date of Service: 03/03/24 Interval History: neck pain, otherwise feeling okay, eager for discharge Physical Exam Vital Signs: Vital Signs: Last Vital Signs Temp 98.0 F 03/03/24 06:59 Pulse 69 03/03/24 07:36 Resp 20 03/03/24 06:59 BP 172/80 H 03/03/24 07:36 Pulse Ox 96 03/03/24 06:59 O2 Del Method Room Air 03/03/24 06:59 BMI result Body Mass Index 26.4 Const: General: cooperative HEENT: Head: Yes normal to inspection Face and sinus: Yes normal facial exam Mouth: Normal oral and palatal mucosa present Teeth and gingiva: dentition normal Eyes: General: appearance normal, both eyes and all related structures Pupils: Equal, round and reactive pupils present Resp: Effort & Inspection: normal respiratory effort Cardio: Rate: regular rate Rhythm: regular rhythm GI: Palpation (GI): Soft to palpation and nontender : General: Yes no CVA tenderness Back/Spine/Pelvis: Back: no CVA tenderness Skin: General skin exam: no rashes or lesions noted Neuro: General: moves all extremities Cranial nerves: Yes Equal, round and reactive pupils present Extrem: General: Yes normal to inspection Psych: Appearance: grossly normal Mental Status: mental status grossly normal Affect: Hostile affect present and Irritable affect present Attitude: Belligerent attititude/behavior present Thought process: Loose association thought process present Thought content: Normal thought content present Insight: Fair insight present (Psych) Judgement: Fair judgement present (Psych) Objective Data Active Medications Acetaminophen (Acetaminophen 325 Mg Tablet) 975 mg PO Q6H PRN PRN Reason: Pain, Mild (Pain Scale 1-3), fever or headache Last Admin: 02/29/24 20:12 Dose: 975 mg Documented By: LISBETH Amlodipine Besylate (Amlodipine Besylate 5 Mg Tablet) 5 mg PO DAILY [facility]; Protocol Last Admin: 03/03/24 07:36 Dose: 5 mg Documented By: JACKIE Calcium Carbonate (Calcium Carbonate 750 Mg Tab.Chew) 750 mg PO Q4H PRN PRN Reason: Heartburn Carvedilol (Carvedilol 12.5 Mg Tablet) 12.5 mg PO BIDWM [facility]; Protocol Last Admin: 03/03/24 07:36 Dose: 12.5 mg Documented By: JACKIE Folic Acid (Folic Acid 1 Mg Tablet) 1 mg PO DAILY [facility] Last Admin: 03/03/24 07:36 Dose: 1 mg Documented By: JACKIE Hydralazine HCl (Hydralazine Hcl 50 Mg Tablet) 100 mg PO BID [facility]; Protocol Last Admin: 03/03/24 07:35 Dose: 100 mg Documented By: JACKIE Hydromorphone HCl (Hydromorphone Hcl 1 Mg/Ml Syringe) 1 mg IVPUSH Q2H PRN; Protocol PRN Reason: Pain, Severe (Pain Scale 7-10) Last Admin: 03/03/24 08:21 Dose: 1 mg Documented By: RIOSCEL Lidocaine (Lidocaine 4 % Patch Adh..Patch) 1 patch TRANSDERMA DAILY [facility]; Protocol Last Admin: 03/03/24 07:36 Dose: Not Given Documented By: JACKIE Non-Admin Reason: Patient Refused Magnesium Hydroxide (Milk Of Magnesia 30 Ml Oral.Susp) 30 ml PO DAILY PRN PRN Reason: Constipation Melatonin (Melatonin 3 Mg Tablet) 6 mg PO BEDTIME PRN PRN Reason: Insomnia Last Admin: 03/02/24 22:54 Dose: 6 mg Documented By: SYBIL Ondansetron HCl (Ondansetron Hcl 4 Mg/2 Ml Vial) 4 mg IVPUSH Q8H PRN PRN Reason: Nausea and Vomiting Polyethylene Glycol (Polyethylene Glycol 3350 17 Gm Powd.Pack) 17 gm PO DAILY [facility] Last Admin: 03/03/24 07:37 Dose: Not Given Documented By: JACKIE Non-Admin Reason: Patient Refused Senna (Sennosides 8.6 Mg Tablet) 17.2 mg PO BEDTIME [facility] Last Admin: 03/02/24 20:27 Dose: Not Given Documented By: SYBIL Non-Admin Reason: Patient Refused Sodium Bicarbonate (Sodium Bicarbonate 650 Mg Tablet) 650 mg PO TID [facility] Last Admin: 03/03/24 07:36 Dose: 650 mg Documented By: JACKIE Sodium Chloride (0.9 % Sodium Chloride Flush 3 Ml Syringe) 3 ml IVFLUSH QSHIFT [facility] Last Admin: 03/03/24 07:35 Dose: 3 ml Documented By: JAKCIE Thiamine HCl (Thiamine Hcl 100 Mg Tablet) 100 mg PO DAILY [facility] Last Admin: 03/03/24 07:36 Dose: 100 mg Documented By: JACKIE Trazodone HCl (Trazodone Hcl 50 Mg Tablet) 150 mg PO BEDTIME [facility] Last Admin: 03/02/24 20:26 Dose: 150 mg Documented By: N-JOZEB Trimethoprim/Sulfamethoxazole (Sulfamethox/Trimeth 400/80 Tablet) 1 tab PO BID [facility] Last Admin: 03/03/24 07:36 Dose: 1 tab Documented By: JACKIE Labs 03/03/24 06:11 03/03/24 06:11 Labs: Laboratory Results - last 24 hr 03/03/24 06:11 MCV 88.4 MCH 29.8 MCHC 33.7 RDW 17.9 H Plt Count 43 L D MPV 11.1 Absolute Nucleated RBC 0.000 Nucleated RBC % (auto) 0.0 Anion Gap 8 L Estim Creat Clear Calc 20.3 Estimated GFR 25 Random Glucose 92 Calcium 8.9 Microbiology Microbiology Results: Microbiology 02/28/24 06:03 Blood Culture - Final Blood - Venous Stenotrophomonas maltophilia 03/01/24 08:02 Blood Culture - Preliminary Blood - Venous Prelim: GNR Gram Stain only 03/01/24 08:01 Blood Culture - Preliminary Blood - Venous No growth after 24 hours. Assessment and Plan (1) UTI (urinary tract infection): Status: Acute Plan 73F PMH copd, breast ca, small cell lung ca on chemo, pancytopenia, htn, presented with ams, found to have klebsiella uti and strenotrophomas bacteremia Acute metabolic encephalopathy due to klebsiella urinary tract infection complicated by strenotrophomonas bacteremia changed ceftriaxone to bactrim DS times one, then SS bid (GFR 25), for 14 days ID appreciated No sepsis, pancytopenia is chronic due to chemotherapy picc removed 02/29/24, repeat culture from 03/01/24 still 1/2 positive, check repeat 03/03/24, will need new access for chemo - port prefered due to CKD III, tentatively scheduled for 03/05/24, but may need to be changed if bacteremia does not clear DON on CKD 3 with chronic metabolic acidosis Likely due to above, monitor stable creatinine around 2 continue oral bicarb small cell lung ca on chemo complicated by pancytopenia transfused 1 unit prbc 02/26/24, improved appropriately COPD Stable Hypertension Continue carvedilol, hydralazine, bp trending up will increase amlodipine to 10mg daily DVT prophylaxis-mechanical due to thrombocytopenia Full code reason for continued hospitalization: still bacteremic Quality Stroke Does the patient have a stroke diagnosis?: No VTE Prior VTE?: No VTE Risk Level:: Medical - moderate - high VTE Device Contraindication: N/A - Device Ordered VTE Drug Contraindication: Treatment Not Indicated
--- NOTE | 2024-03-03 12:05 | MHC.CLN ---
NUTRITION DIET=REGULAR. VARIABLE INTAKE, 0-100%. SKIN WITH DTI TO SACRUM. ADDING ENSURE TID (1050 KCALS, 60 G PROTEIN) TO PROMOTE NUTRITIONAL INTAKE AND WOUND HEALING. FOLLOW FOR PO INTAKE AND SKIN INTEGRITY. SEE CLINICAL NUTRITION ASSESSMENT 03/03/24.
[2024-03-03] MEDS: traZODone HCL 50 MG TABLET 150 MG PO (19:57)
[2024-03-03] MEDS: Melatonin 3 MG TABLET 6 MG PO (20:01)
[2024-03-04] VITALS (11 sets, daily range): BP systolic 145–182; BP diastolic 65–90; PULSE 62–78; RESP 16–18; TEMP 36.1–37; O2SAT 95–98
[2024-03-04] MEDS: HYDROmorphone HCl 1 MG/ML SYRINGE IVPUSH ×8 (02:08→23:39)
[2024-03-04 07:18] LABS: Hemoglobin 7.8 g/dl (12.0-16.0); Mean Corpuscular HGB Conc 33.9 g/dl (31.0-35.0); PLT CLUMP 1
[2024-03-04 07:20] LABS: Mean Corpuscular Volume 88.5 fL (80.0-98.0); Mean Platelet Volume 10.8 fL (9.4-12.3)
[2024-03-04 07:34] LABS: Platelet Count 44 X10*3/uL (160-400); White Blood Count 1.8 X10*3/uL (4.8-10.8)
[2024-03-04 07:44] LABS: Anion Gap 7 (12-20); Blood Urea Nitrogen 22 mg/dL (9-16); Carbon Dioxide 23 mmol/L (22-29); Chloride 111 mmol/L (96-108); Creatinine Clr Calc Pharmacy 21.3; Estimated Glomerular Filt Rate 26; Glucose Random 85 mg/dL (60-115); Potassium 4.2 mmol/L (3.3-5.1); Sodium 137 mmol/L (135-145)
[2024-03-04] MEDS: 0.9 % Sodium Chloride Flush 3 ML SYRINGE IVFLUSH ×3 (08:55→20:22)
[2024-03-04] MEDS: carvediloL 12.5 MG TABLET PO ×2 (09:01→17:10)
[2024-03-04] MEDS: Thiamine HCL 100 MG TABLET PO (09:01)
[2024-03-04] MEDS: Sodium Bicarbonate 650 MG TABLET PO (09:01)
[2024-03-04] MEDS: Sulfamethox/Trimeth 400/80 TABLET 1 TAB PO ×2 (09:01→20:21)
[2024-03-04] MEDS: Folic Acid 1 MG TABLET PO (09:01)
[2024-03-04] MEDS: hydrALAZINE HCl 50 MG TABLET 100 MG PO ×2 (09:02→20:19)
[2024-03-04] MEDS: amLODIPine Besylate 10 MG TABLET PO (09:02)
--- NOTE | 2024-03-04 11:08 | P.PNIM_ITS ---
Subjective Subjective Date of Service: 03/04/24 Interval History: Being followed for acute metabolic encephalopathy due to Klebsiella UTI/bacteremia Offers no acute complaints, denies fever, no chills, tolerating diet with no nausea or vomiting. No acute events overnight. Review of Systems All other system reviewed and are negative. Physical Exam 2 Vital Signs: Vital Signs: Last Vital Signs Temp 98.6 F 03/04/24 10:51 Pulse 78 03/04/24 10:51 Resp 18 03/04/24 10:51 BP 181/82 H 03/04/24 10:51 Pulse Ox 96 03/04/24 10:51 O2 Del Method Room Air 03/04/24 10:51 BMI result Body Mass Index 26.4 Const: Other: General awake alert x3, resting comfortably in no acute distress. Neck no JVD. CVS regular rate rhythm, Respiratory lungs clear to auscultation, no respiratory distress, no wheeze, no rhonchi. Gastrointestinal abdomen soft, non tender, bowel sounds audible Extremities no edema. Neuro non focal Skin no rash Objective Data Active Medications Acetaminophen (Acetaminophen 325 Mg Tablet) 975 mg PO Q6H PRN PRN Reason: Pain, Mild (Pain Scale 1-3), fever or headache Last Admin: 02/29/24 20:12 Dose: 975 mg Documented By: LISBETH Amlodipine Besylate (Amlodipine Besylate 10 Mg Tablet) 10 mg PO DAILY [facility]; Protocol Last Admin: 03/04/24 09:02 Dose: 10 mg Documented By: TOBIAS Calcium Carbonate (Calcium Carbonate 750 Mg Tab.Chew) 750 mg PO Q4H PRN PRN Reason: Heartburn Carvedilol (Carvedilol 12.5 Mg Tablet) 12.5 mg PO BIDWM [facility]; Protocol Last Admin: 03/04/24 09:01 Dose: 12.5 mg Documented By: TOBIAS Folic Acid (Folic Acid 1 Mg Tablet) 1 mg PO DAILY [facility] Last Admin: 03/04/24 09:01 Dose: 1 mg Documented By: TOBIAS Hydralazine HCl (Hydralazine Hcl 50 Mg Tablet) 100 mg PO BID [facility]; Protocol Last Admin: 03/04/24 09:02 Dose: 100 mg Documented By: TOBIAS Hydromorphone HCl (Hydromorphone Hcl 1 Mg/Ml Syringe) 1 mg IVPUSH Q2H PRN; Protocol PRN Reason: Pain, Severe (Pain Scale 7-10) Last Admin: 03/04/24 08:56 Dose: 1 mg Documented By: TOBIAS Lidocaine (Lidocaine 4 % Patch Adh..Patch) 1 patch TRANSDERMA DAILY [facility]; Protocol Last Admin: 03/04/24 09:06 Dose: Not Given Documented By: TOBIAS Non-Admin Reason: Patient Refused Magnesium Hydroxide (Milk Of Magnesia 30 Ml Oral.Susp) 30 ml PO DAILY PRN PRN Reason: Constipation Melatonin (Melatonin 3 Mg Tablet) 6 mg PO BEDTIME PRN PRN Reason: Insomnia Last Admin: 03/03/24 20:01 Dose: 6 mg Documented By: EDWAR Ondansetron HCl (Ondansetron Hcl 4 Mg/2 Ml Vial) 4 mg IVPUSH Q8H PRN PRN Reason: Nausea and Vomiting Polyethylene Glycol (Polyethylene Glycol 3350 17 Gm Powd.Pack) 17 gm PO DAILY [facility] Last Admin: 03/04/24 09:06 Dose: Not Given Documented By: TOBIAS Non-Admin Reason: Patient Refused Senna (Sennosides 8.6 Mg Tablet) 17.2 mg PO BEDTIME [facility] Last Admin: 03/03/24 20:04 Dose: Not Given Documented By: EDWAR Non-Admin Reason: Patient Refused Sodium Bicarbonate (Sodium Bicarbonate 650 Mg Tablet) 650 mg PO TID [facility] Last Admin: 03/04/24 09:01 Dose: 650 mg Documented By: TOBIAS Sodium Chloride (0.9 % Sodium Chloride Flush 3 Ml Syringe) 3 ml IVFLUSH QSHIFT [facility] Last Admin: 03/04/24 08:55 Dose: 3 ml Documented By: TOBIAS Thiamine HCl (Thiamine Hcl 100 Mg Tablet) 100 mg PO DAILY [facility] Last Admin: 03/04/24 09:01 Dose: 100 mg Documented By: TOBIAS Trazodone HCl (Trazodone Hcl 50 Mg Tablet) 150 mg PO BEDTIME [facility] Last Admin: 03/03/24 19:57 Dose: 150 mg Documented By: EDWAR Trimethoprim/Sulfamethoxazole (Sulfamethox/Trimeth 400/80 Tablet) 1 tab PO BID [facility] Last Admin: 03/04/24 09:01 Dose: 1 tab Documented By: TOBIAS Labs 03/04/24 06:45 03/04/24 06:45 Labs: Laboratory Results - last 24 hr 03/04/24 06:45 MCV 88.5 MCH 30.0 MCHC 33.9 RDW 18.0 H Plt Count 44 L MPV 10.8 Absolute Nucleated RBC 0.000 Nucleated RBC % (auto) 0.0 Anion Gap 7 L Estim Creat Clear Calc 21.3 Estimated GFR 26 Random Glucose 85 Calcium 9.0 Microbiology Microbiology Results: Microbiology 03/03/24 07:55 Blood Culture - Preliminary Blood - Venous No growth after 24 hours. 03/03/24 07:50 Blood Culture - Preliminary Blood - Venous No growth after 24 hours. 03/01/24 08:02 Blood Culture - Preliminary Blood - Venous Gram negative tom 02/28/24 06:05 Blood Culture - Final Blood - Venous No growth after 5 days. 03/01/24 08:01 Blood Culture - Preliminary Blood - Venous No growth after 48 hours. 02/28/24 06:03 Blood Culture - Final Blood - Venous Stenotrophomonas maltophilia Assessment and Plan (1) Bacteremia: Status: Acute (2) DON (acute kidney injury): Status: Acute Plan 73F PMH copd, breast ca, small cell lung ca on chemo, pancytopenia, htn, presented with ams Acute metabolic encephalopathy due to klebsiella urinary tract infection complicated by stenotrophomonas bacteremia changed ceftriaxone to bactrim DS times one, then SS bid (GFR 25), for 14 days. (end mar 14, 2024) ID appreciated No sepsis, pancytopenia is chronic due to chemotherapy picc removed 02/29/24, repeat culture from 03/01/24 still positive, BCx2 repeat 03/03/24, negative times 24 hours, will need new access for chemo, tentatively scheduled for Port-A-Cath placement on 03/05 if blood cultures remains negative times 48 hours. DON on CKD 3 with metabolic acidosis Creatinine at baseline , follow labs. Dose of soda bicarb reduced to once daily Small cell lung ca on chemo complicated by pancytopenia/chronic pain transfused 1 unit prbc 02/26/24, improved appropriately, hematocrit trending down again, follow CBC and transfuse as needed On Dilaudid/morphine at home currently on IV Dilaudid q.2 hours as needed will change to q.3 hours. COPD Stable Hypertension Elevated blood pressure Continue carvedilol, hydralazine and norvasc added follow bp. DVT prophylaxis-mechanical due to thrombocytopenia Full code reason for continued hospitalization: Awaiting repeat cultures and for Port-A-Cath placement Quality Stroke Does the patient have a stroke diagnosis?: No VTE Prior VTE?: No VTE Risk Level:: Medical - moderate - high VTE Device Contraindication: N/A - Device Ordered VTE Drug Contraindication: Treatment Not Indicated
[2024-03-04] MEDS: traZODone HCL 50 MG TABLET 150 MG PO (20:21)
[2024-03-04] MEDS: Melatonin 3 MG TABLET 6 MG PO (20:21)
[2024-03-05] VITALS (8 sets, daily range): BP systolic 117–180; BP diastolic 59–84; PULSE 56–68; RESP 14–18; TEMP 36.4–36.7; O2SAT 94–99
[2024-03-05] MEDS: HYDROmorphone HCl 1 MG/ML SYRINGE IVPUSH ×3 (03:54→10:24)
--- NOTE | 2024-03-05 07:00 | CA_ITS ---
Transthoracic Echocardiogram Patient (Last, First, Middle): Anna Crawford, Gender: Female Date of : 1950 Age: 73 Procedure Date: 03/05/2024 Procedure Type: Transthoracic Echocardiogram Location: [facility] – [place] Height: 152.4 cm Weight: 61.24 kg BSA: 1.58 m2 Heart Rate: bpm BP: 160 / 78 mmHg Contact Center Professional: CAROLINE Referring MD: Ethan Sullivan MD Symptoms: persistent bacteremia Study Quality: Adequate Conclusions: - Normal left ventricular size and systolic function. There is mildly increased left ventricular wall thickness. The visually estimated ejection fraction is between 60-65%. - Normal right ventricular cavity size and systolic function. - The left atrium is moderately dilated. - There is severe mitral annular calcification. - There is mild mitral valve regurgitation. - No obvious vegetation noted. Findings Left Ventricle Normal left ventricular size and systolic function. There is mildly increased left ventricular wall thickness. The visually estimated ejection fraction is between 60-65%. There is no evidence of regional wall motion abnormalities. Diastolic function is indeterminate on the basis of available data. There is severe septal asymmetric hypertrophy. Right Ventricle Normal right ventricular cavity size and systolic function. Atria The left atrium is moderately dilated. The right atrium is normal in size. Aortic Valve Normal aortic valve structure and function. There is no aortic valve stenosis. There is no aortic valve regurgitation. Mitral Valve There is severe mitral annular calcification. There is mild mitral valve regurgitation. There is no mitral valve stenosis. Pulmonic Valve The pulmonic valve is likely normal. Tricuspid Valve Normal tricuspid valve structure. There is no tricuspid valve regurgitation. Tricuspid regurgitation envelope is inadequate for calculation of right ventricular systolic pressure. Normal right atrial pressure. Great Vessels All visible segments of the aorta are normal in size. Venous The inferior vena cava is normal in size and collapses greater than 50% with inspiration. Pericardium/Pleural There is no evidence of pericardial effusion. Prior Study Comparison No prior study available for comparison. Measurements 2D Linear Measurements IVSd: 1.64 0.6-0.9/0.6-1.0 cm LVIDd: 4.72 3.9-5.3/4.2-5.9 cm LVIDd Index: 2.99 2.4-3.2/2.2-3.1 cm/m2 LVIDs: 2.73 2.0-3.6 cm LVPWd: 1.24 0.7-1.1 cm LA Diam: 3.60 2.7-3.8/3.0-4.0 cm LAIDs Index: 2.28 1.5-2.3 cm/m2 LV Mass: 347.17 67-162/88-224 g LV Mass Index: 219.73 43-95/49-115 g/m2 LVOT Diam: 2.00 3.0+(-)1.3 cm 2D Systolic Function EF 4C: 66.70 >55% EF 2C: 51.70 >55% EF BiP: 58.60 >55% Mitral Valve MV VTI: 0.49 MV Pk Ger: 1.66 MV Mn Ger: 0.95 MV Pk Grad: 11.00 MV Mn Grad: 5.00 MV Pk E: 1.21 MV PK A: 1.75 MV Decel Time: 337.00 E/A: 0.70 E'Lateral: 4.90 E'Medial: 3.81 E/E' Med: 31.80 E/E' Lat: 24.70 PHT: 99.00 MVA PHT: 2.22 MVA Continuity: 1.40 Decel Graham: 3.58 Aortic Valve AoV Pk Ger: 1.80 AoV Mn Ger: 1.07 AoV VTI: 0.34 AoV Pk Grad: 13.00 Aov Mn Grad: 6.00 SANTANA Cont.VTI: 2.03 LVOT LVOT Pk Ger: 1.18 LVOT Mn Ger: 0.74 LVOT VTI: 0.22 LVOT Pk Grad: 6.00 LVOT Mn Grad: 3.00 LVOT Diam: 2.00 LVOT Area: 3.14 Diastolic Function MV Pk E: 1.21 MV Pk A: 1.75 E/A: 0.70 E'Medial: 3.81 E/E' Med: 31.80 E' Laterial: 4.90 E/E' Lat: 24.70 Right Ventricle TAPSE (mm): 2.28 TVS' Ger: 15.30 Tricuspid Valve RA Press: 3.00 Great Vessels Aorta Sinus of Valsalva: 3.30 2.0-3.5 cm Ao Asc: 3.50 2.1-3.4 cm Pulmonary Valve PV Pk Ger: 1.13 Peak PV Grad: 5.00 Updated in Other Vendor System with Status of Final George Stevenson MD electronically signed on 03/05/2024 11:04:17 AM with status of Final
[2024-03-05 09:32] LABS: Hematocrit 23.6 % (37.0-47.0); Mean Corpuscular HGB Conc 33.9 g/dl (31.0-35.0); Mean Corpuscular Hemoglobin 30.3 pg (27.0-33.0); Mean Corpuscular Volume 89.4 fL (80.0-98.0); Mean Platelet Volume 11.2 fL (9.4-12.3); Red Blood Count 2.64 X10*6/uL (4.20-5.50); Red Cell Distribution Width 18.2 % (11.0-16.0)
[2024-03-05 09:34] LABS: Platelet Count 51 X10*3/uL (160-400); White Blood Count 2.2 X10*3/uL (4.8-10.8)
[2024-03-05] MEDS: carvediloL 12.5 MG TABLET PO ×2 (09:44→17:34)
[2024-03-05] MEDS: hydrALAZINE HCl 50 MG TABLET 100 MG PO ×2 (09:45→20:18)
[2024-03-05] MEDS: Sodium Bicarbonate 650 MG TABLET PO (09:45)
[2024-03-05] MEDS: Sulfamethox/Trimeth 400/80 TABLET 1 TAB PO ×2 (09:46→20:18)
[2024-03-05] MEDS: Thiamine HCL 100 MG TABLET PO (09:46)
[2024-03-05] MEDS: amLODIPine Besylate 10 MG TABLET PO (09:46)
[2024-03-05] MEDS: Folic Acid 1 MG TABLET PO (09:47)
[2024-03-05] MEDS: 0.9 % Sodium Chloride Flush 3 ML SYRINGE IVFLUSH ×3 (09:49→20:19)
--- NOTE | 2024-03-05 11:23 | MHC.CLN ---
F/U VARIABLE INTAKE NOW NPO TODAY PT WITH INCREASED NUTRITION RISK R/T PRESSURE INJURY WHEN DIET RESUMES; RE-START ENSURE TID (1050 KCALS, 60 G PROTEIN) TO PROMOTE NUTRITIONAL INTAKE AND WOUND HEALING FOLLOW FOR DIET ADVANCEMENT
[2024-03-05] MEDS: Morphine Sulfate ER 15 MG TABLET.ER PO (14:00)
[2024-03-05] MEDS: HYDROmorphone HCl 2 MG TABLET 4 MG PO (14:02)
--- NOTE | 2024-03-05 16:21 | P.PNIM_ITS ---
Subjective Subjective Date of Service: 03/05/24 Interval History: seen and examined this morning follow up for bacteremia, anemia, thrombocytopenia no overnight events reporting chronic pain Review of Systems Review of Systems: Yes all other systems are reviewed and are negative Constitutional Constitutional: Denies chills and Denies fever(s) Cardiovascular Cardiovascular: Denies chest pain and Denies dyspnea Respiratory Respiratory: Denies dyspnea Gastrointestinal Gastrointestinal: Denies abdominal pain Physical Exam 2 Vital Signs: Vital Signs: Last Vital Signs Temp 98.1 F 03/05/24 11:10 Pulse 66 03/05/24 11:10 Resp 18 03/05/24 11:10 BP 160/70 H 03/05/24 11:10 Pulse Ox 97 03/05/24 11:10 O2 Del Method Room Air 03/05/24 11:10 BMI result Body Mass Index 26.4 Const: General: cooperative, comfortable, no acute distress, alert and awake Nutritional Appearance: average body habitus Orientation/consciousness: p atient oriented x3 Resp: Effort & Inspection: normal respiratory effort, able to speak in complete sentences, no respiratory distress and no use of accessory muscles Cardio: Rate: regular rate GI: Inspection: No distended Palpation (GI): Soft to palpation and nontender Neuro: General: patient oriented x3, No moves all extremities and No CN's II- XI intact bilaterally Objective Data Active Medications Acetaminophen (Acetaminophen 325 Mg Tablet) 975 mg PO Q6H PRN PRN Reason: Pain, Mild (Pain Scale 1-3), fever or headache Last Admin: 02/29/24 20:12 Dose: 975 mg Documented By: LISBETH Amlodipine Besylate (Amlodipine Besylate 10 Mg Tablet) 10 mg PO DAILY [facility]; Protocol Last Admin: 03/05/24 09:46 Dose: 10 mg Documented By: JOHN Calcium Carbonate (Calcium Carbonate 750 Mg Tab.Chew) 750 mg PO Q4H PRN PRN Reason: Heartburn Carvedilol (Carvedilol 12.5 Mg Tablet) 12.5 mg PO BIDWM [facility]; Protocol Last Admin: 03/05/24 09:44 Dose: 12.5 mg Documented By: JOHN Folic Acid (Folic Acid 1 Mg Tablet) 1 mg PO DAILY [facility] Last Admin: 03/05/24 09:47 Dose: 1 mg Documented By: JOHN Hydralazine HCl (Hydralazine Hcl 50 Mg Tablet) 100 mg PO BID [facility]; Protocol Last Admin: 03/05/24 09:45 Dose: 100 mg Documented By: JOHN Hydromorphone HCl (Hydromorphone Hcl 2 Mg Tablet) 2 mg PO Q6H PRN PRN Reason: Pain, Moderate Hydromorphone HCl (Hydromorphone Hcl 2 Mg Tablet) 4 mg PO Q6H PRN PRN Reason: Pain, Severe Last Admin: 03/05/24 14:02 Dose: 4 mg Documented By: JOHN Comments: RR 20 Lidocaine (Lidocaine 4 % Patch Adh..Patch) 1 patch TRANSDERMA DAILY [facility]; Protocol Last Admin: 03/05/24 09:49 Dose: Not Given Documented By: JOHN Non-Admin Reason: Patient Refused Magnesium Hydroxide (Milk Of Magnesia 30 Ml Oral.Susp) 30 ml PO DAILY PRN PRN Reason: Constipation Melatonin (Melatonin 3 Mg Tablet) 6 mg PO BEDTIME PRN PRN Reason: Insomnia Last Admin: 03/04/24 20:21 Dose: 6 mg Documented By: AILYN Morphine Sulfate (Morphine Sulfate Er 15 Mg Tablet.Er) 15 mg PO DAILY [facility] Last Admin: 03/05/24 14:00 Dose: 15 mg Documented By: JOHN Ondansetron HCl (Ondansetron Hcl 4 Mg/2 Ml Vial) 4 mg IVPUSH Q8H PRN PRN Reason: Nausea and Vomiting Polyethylene Glycol (Polyethylene Glycol 3350 17 Gm Powd.Pack) 17 gm PO DAILY [facility] Last Admin: 03/05/24 09:49 Dose: Not Given Documented By: JOHN Non-Admin Reason: Patient Refused Senna (Sennosides 8.6 Mg Tablet) 17.2 mg PO BEDTIME [facility] Last Admin: 03/04/24 20:26 Dose: Not Given Documented By: AILYN Non-Admin Reason: Patient Refused Sodium Bicarbonate (Sodium Bicarbonate 650 Mg Tablet) 650 mg PO DAILY [facility] Last Admin: 03/05/24 09:45 Dose: 650 mg Documented By: JOHN Sodium Chloride (0.9 % Sodium Chloride Flush 3 Ml Syringe) [facility] Last Admin: 03/05/24 09:49 Dose: 3 ml Documented By: JOHN Thiamine HCl (Thiamine Hcl 100 Mg Tablet) 100 mg PO DAILY [facility] Last Admin: 03/05/24 09:46 Dose: 100 mg Documented By: JOHN Trazodone HCl (Trazodone Hcl 50 Mg Tablet) 150 mg PO BEDTIME [facility] Last Admin: 03/04/24 20:21 Dose: 150 mg Documented By: AILYN Trimethoprim/Sulfamethoxazole (Sulfamethox/Trimeth 400/80 Tablet) 1 tab PO BID [facility] Last Admin: 03/05/24 09:46 Dose: 1 tab Documented By: JOHN Labs 03/05/24 09:17 03/04/24 06:45 Labs: Laboratory Results - last 24 hr 03/05/24 09:17 MCV 89.4 MCH 30.3 MCHC 33.9 RDW 18.2 H Plt Count 51 L MPV 11.2 Absolute Nucleated RBC 0.000 Nucleated RBC % (auto) 0.0 Blood Type A Positive Antibody Screen NEGATIVE Microbiology Microbiology Results: Microbiology 03/03/24 07:50 Blood Culture - Preliminary Blood - Venous No growth after 48 hours. 03/03/24 07:55 Blood Culture - Preliminary Blood - Venous No growth after 48 hours. 03/01/24 08:02 Blood Culture - Final Blood - Venous Stenotrophomonas maltophilia Assessment and Plan (1) Bacteremia: Status: Acute Plan 73F PMH copd, breast ca, small cell lung ca on chemo, pancytopenia, htn, presented with ams Acute metabolic encephalopathy due to klebsiella urinary tract infection complicated by stenotrophomonas bacteremia changed ceftriaxone to bactrim DS times one, then SS bid (GFR 25), for 14 days. (end mar 14, 2024) ID appreciated No sepsis, pancytopenia is chronic due to chemotherapy picc removed 02/29/24, repeat culture from 03/01/24 still positive, BCx2 repeat 03/03/24, negative times 48 hours will need new access for chemo, will need Port-A-Cath placement next week as outpatient Echo-no evidence of vegetation DON on CKD 3 with metabolic acidosis Creatinine at baseline, bicarb stable, follow labs. Dose of soda bicarb reduced to once daily Small cell lung ca on chemo complicated by pancytopenia/chronic pain transfused 1 unit prbc 02/26/24, improved appropriately, hematocrit stable, follow CBC and transfuse as needed On Dilaudid/morphine at home- will resume home dose of meds COPD Stable Hypertension Elevated blood pressure Continue carvedilol, hydralazine and norvasc added follow bp. DVT prophylaxis-mechanical due to thrombocytopenia Full code dispo - back to [facility] likely in am Quality Stroke Does the patient have a stroke diagnosis?: No VTE Prior VTE?: No VTE Risk Level:: Medical - moderate - high VTE Device Contraindication: N/A - Device Ordered VTE Drug Contraindication: Treatment Not Indicated
[2024-03-05] MEDS: Acetaminophen 325 MG TABLET 975 MG PO (17:35)
[2024-03-05] MEDS: HYDROmorphone HCl 2 MG TABLET PO (20:18)
[2024-03-05] MEDS: Melatonin 3 MG TABLET 6 MG PO (20:18)
[2024-03-05] MEDS: traZODone HCL 50 MG TABLET 150 MG PO (20:18)
[2024-03-06] MEDS: HYDROmorphone HCl 2 MG TABLET PO ×3 (03:23→15:06)
[2024-03-06 03:33] VITALS: BP 150/65; PULSE 60; RESP 18; TEMP 36.1; O2SAT 94
[2024-03-06 07:55] VITALS: BP 145/66; PULSE 63; RESP 18; TEMP 36.9; O2SAT 95
[2024-03-06] MEDS: Morphine Sulfate ER 15 MG TABLET.ER PO (09:01)
[2024-03-06] MEDS: Sodium Bicarbonate 650 MG TABLET PO (09:01)
[2024-03-06] MEDS: carvediloL 12.5 MG TABLET PO (09:02)
[2024-03-06] MEDS: Thiamine HCL 100 MG TABLET PO (09:02)
[2024-03-06] MEDS: hydrALAZINE HCl 50 MG TABLET 100 MG PO (09:02)
[2024-03-06] MEDS: amLODIPine Besylate 10 MG TABLET PO (09:02)
[2024-03-06] MEDS: 0.9 % Sodium Chloride Flush 3 ML SYRINGE IVFLUSH (09:02)
[2024-03-06] MEDS: Folic Acid 1 MG TABLET PO (09:02)
[2024-03-06] MEDS: Sulfamethox/Trimeth 400/80 TABLET 1 TAB PO (09:02)
[2024-03-06 10:49] VITALS: BP 145/66; PULSE 63; O2SAT 95
[2024-03-06 11:29] VITALS: BP 154/65; PULSE 64; RESP 18; TEMP 36.9; O2SAT 94
--- NOTE | 2024-03-06 11:48 | MHC.CLN ---
F/U INTAKE REMAINS VARIABLE DIET BACK TO REGULAR PT WITH INCREASED NUTRITION RISK R/T PRESSURE INJURY RE-START ENSURE TID (1050 KCALS, 60 G PROTEIN) TO PROMOTE NUTRITIONAL INTAKE AND WOUND HEALING MONITOR PO INTAKE AND ENCOURAGE SUPPLEMENTS
--- NOTE | 2024-03-06 11:59 | PM.DS ---
DS: Providers Provider Date of Service: 03/06/24 Date of admission: 02/24/24 20:41 Date of discharge: 03/06/24 Primary care physician: Eleazar Le III, MD Consults: 02/25/24 10:26 Consult to Wound Care Routine Reason for consultation: redness coccyx/ groin 02/27/24 09:08 Consult to Infectious Diseases Routine Consulting Provider: [facility] Reason for consultation: stenotrophomonas bactermia, has chronic picc, klebsiella in urine Attending physician on discharge: Blake Carrillo Discharging clinician: Narda Bello DS: Diagnosis Discharge Diagnosis (1) Bacteremia: Status: Acute DS: Summary Hospital Course Hospital Course: From H&P on the day of admission Patient is a 73-year-old female with a past medical history significant for COPD unspecified, breast cancer s/p partial mastectomy and radiation, small-cell lung cancer being treated with chemotherapy by Dr. Jesus, last chemotherapy session was 5 days ago with a new agent, and chronic anemia and HTN, who presented to the ED today with confusion and lethargy for a few days. The patient is a poor historian secondary to her confusion but does reports urinary symptoms including dysuria and frequency. She denies any hematuria, abdominal pain, shortness of breath, chest pain, nausea or vomiting. There was also a concern for neck pain while in the ED, upon further investigation the patient reported that this is chronic for her although again her history is not very accurate Acute metabolic encephalopathy due to klebsiella urinary tract infection complicated by stenotrophomonas bacteremia changed ceftriaxone to bactrim DS times one, then SS bid (GFR 25), for 14 days. (end mar 14, 2024). Seen by ID. No sepsis, pancytopenia is chronic due to chemotherapy picc removed 02/29/24, repeat culture from 03/01/24 still positive, BCx2 repeat 03/03/24, negative times 48 hours Echo-no evidence of vegetation DON on CKD 3 with metabolic acidosis Creatinine at baseline, bicarb stable, follow labs. Dose of soda bicarb reduced to once daily Small cell lung ca on chemo complicated by pancytopenia/chronic pain transfused 1 unit prbc 02/26/24, improved appropriately, hematocrit stable On po Dilaudid/morphine at home- will resume home dose of meds will need new access for chemo, will need Port-A-Cath placement next week as outpatient Time Attestation Discharge Coordination Time (in mins): 40 Quality: Safe Use of Opioids Does Pt have an Active Cancer Diagnosis on the Problem List?: No Quality: Stroke Does the patient have a stroke diagnosis?: No Physical Exam Vital Signs: Vital Signs: Last Vital Signs Temp 98.5 F 03/06/24 11:29 Pulse 64 03/06/24 11:29 Resp 18 03/06/24 11:29 BP 154/65 H 03/06/24 11:29 Pulse Ox 94 03/06/24 11:29 O2 Del Method Room Air 03/06/24 11:29 BMI result Body Mass Index 26.4 Const: Other: chronically ill appearing General: cooperative, comfortable, no acute distress, alert and awake Nutritional Appearance: average body habitus Orientation/consciousness: patient oriented x3 Resp: Effort & Inspection: normal respiratory effort, able to speak in complete sentences, no respiratory distress and no use of accessory muscles Cardio: Rate: regular rate GI: Inspection: No distended Palpation (GI): Soft to palpation and nontender Neuro: General: patient oriented x3, No moves all extremities and No CN's II-XI intact bilaterally DS: Data Data Completed and Pending Completed studies during hospitalization [Text1]: Procedures Transfusion of Nonautologous Red Blood Cells into Peripheral Vein, Percutaneous Approach (11/14/23) Labs on day of discharge: Preliminary micro results at discharge 03/03/24 07:50 Blood Culture - Preliminary Blood - Venous No growth after 48 hours. 03/03/24 07:55 Blood Culture - Preliminary Blood - Venous No growth after 48 hours. Discharge Plan Discharge Anticipated Discharge Date/Time: 03/06/24 12:10 Patient Disposition: Xfer [facility] Discharge Diagnosis: UTI bacteremia hyperkalemia/DON resolved Referrals: Eleazar Le III, MD [Primary Care Provider] - 1 Week Umang Jesus MD [Physician] - 1 Week Discharge Medications: New sulfamethoxazole-trimethoprim 400-80 mg Tablet 1 tab PO BID 9 Days Qty: 18 0RF amlodipine 10 mg Tablet 10 mg PO DAILY 90 Days Qty: 90 0RF Protocol: Hold for SBP< HOLD for SBP < : 90 Continued sennosides [senna] 8.6 mg Tablet 17.2 mg PO BEDTIME acetaminophen 325 mg Tablet 650 mg PO Q6H PRN (Reason: Pain/Fever) carvedilol 12.5 mg tablet 12.5 mg PO BID ipratropium-albuterol 0.5 mg-3 mg(2.5 mg base)/3 mL solution for nebulization 3 ml inhalation Q4H PRN (Reason: Shortness Of Breath) trazodone 50 mg tablet 50 mg PO BEDTIME Rx Instructions: Take along with trazodone 100 mg =150mg ondansetron HCl 8 mg Tablet 8 mg PO Q8H PRN (Reason: Nausea And Vomiting) thiamine HCl (vitamin B1) 100 mg Tablet 100 mg PO DAILY hydromorphone 2 mg tablet 2 mg PO Q6H PRN (Reason: Pain, Moderate) hydromorphone 2 mg tablet 4 mg PO Q6H PRN (Reason: Pain, Severe) magnesium hydroxide [Milk of Magnesia] 400 mg/5 mL Suspension 30 ml PO DAILY PRN (Reason: Constipation) trazodone 100 mg tablet 100 mg PO BEDTIME Rx Instructions: Take along with trazodone 50 mg =150mg bisacodyl 10 mg Suppository 10 mg NE DAILY PRN (Reason: Constipation) hydralazine 100 mg tablet 100 mg PO BID Fleet Enema 19-7 gram/118 mL Enema 118 ml NE DAILY PRN (Reason: Constipation) folic acid 1 mg tablet 1 mg PO DAILY polyethylene glycol 3350 [Miralax] 17 gram/dose Powder 17 g PO DAILY Rx Instructions: Dissolve in 4-8 Oz of fluid clonazepam 0.5 mg tablet 0.5 mg PO BID PRN (Reason: Muscle Spasm) morphine 15 mg tablet extended release 15 mg PO DAILY Anoro Ellipta 62.5-25 mcg/actuation blister with device 1 ea inhalation DAILY acetaminophen 325 mg Tablet 650 mg PO DAILY melatonin 10 mg Tablet 10 mg PO BEDTIME PRN (Reason: Sleep) Discontinued heparin lock flush (porcine) [heparin lock flush] 10 unit/mL Solution 10 unit IV Q12H Rx Instructions: administer after IV drug administration as part of [facility] protocol sodium chloride 0.9 % (flush) [Saline Flush] Syringe 10 ml IV BID Rx Instructions: administer before and after IV drug administration as part of [facility] protocol Discharge Orders: Discharge Order (Routine); Ordered 03/06/24 Ordered By: Narda Bello Activity on Discharge: As tolerated Stand Alone Forms: Patient Portal Discharge page Print Language: [place] Citizen Other Ambulatory Orders: IR cvc insert tunnel w prt/paper and prints restorer (Routine) Timeframe: 20240310 Facility: [facility] - Location: Radiology Interventional Proc Ordered By: Ethan Sullivan Care Plan Goals: see below Health Concerns: UTI due to klebsiella stenotrophomonas bacteremia hyperkalemia resolved DON resolved Small cell lung cancer on chemo with pancytopenia Plan of Treatment: complete course of antibiotics - Bactrim until 03/14 outpatient follow up with oncology will need to schedule outpatient port placement start taking norvasc for blood pressure control incidental thyroid nodule - recommend outpatient thyroid US call to schedule follow up appointment with PCP Assessment: see discharge summary
[2024-03-06 15:27] VITALS: BP 130/75; PULSE 63; RESP 20; TEMP 37.6; O2SAT 99
== END 2024-03-06 18:47 | DRG 689 ==
LOC: HO.ED 18:25 → HO.EDOVER 20:47 → HO.IMC 21:26
PROVIDERS: Internal Medicine; Admitting Provider Physician Assistant; Emergency Provider Emergency Medicine; PCP Internal Medicine; Visit Provider Physician Assistant Medical
DX: N39.0 Urinary tract infection, site not specified (principal); D61.810 Antineoplastic chemotherapy induced pancytopenia; N17.9 Acute kidney failure, unspecified; R78.81 Bacteremia; E87.20 Acidosis, unspecified; C34.90 Malignant neoplasm of unspecified part of unspecified bronchus or lung; I12.9 Hypertensive chronic kidney disease with stage 1 through stage 4 chronic kidney disease, or unspecified chronic kidney disease; N18.30 Chronic kidney disease, stage 3 unspecified; E86.0 Dehydration; D63.0 Anemia in neoplastic disease; T45.1X5A Adverse effect of antineoplastic and immunosuppressive drugs, initial encounter; J44.9 Chronic obstructive pulmonary disease, unspecified; B96.1 Klebsiella pneumoniae [K. pneumoniae] as the cause of diseases classified elsewhere; L89.156 Pressure-induced deep tissue damage of sacral region; E87.5 Hyperkalemia; Z85.3 Personal history of malignant neoplasm of breast; Z20.822 Contact with and (suspected) exposure to COVID-19; Z87.891 Personal history of nicotine dependence; Z79.899 Other long term (current) drug therapy
CPT/HCPCS: 0241U; 36415; 70496; 70498; 71046; 80048; 80076; 80307; 81001; 82550; 82803; 83605; 83690; 83735; 84484; 85025; 85027; 85610; 85652; 86140; 86850; 86900; 86901; 86923; 87040; 87077; 87086; 87088; 87186; 87205; 93005; 93306; 97110; 97116; 97162; 99285; J0360; J0696; J1171; J7120; P9016; Q9957; Q9967

== ENCOUNTER → 2024-02-24 14:48 | Outpatient (BNV) | payer MEDICARE, SELFPAY | PROVIDERS: Emergency Provider Emergency Medicine; PCP Internal Medicine; Visit Provider Radiology Diagnostic Radiology | DX: R41.0 Disorientation, unspecified (principal) | CPT/HCPCS: 71046 ==

== ENCOUNTER → 2024-02-24 14:48 | Outpatient (BNV) | payer MEDICARE, SELFPAY | PROVIDERS: Emergency Provider Emergency Medicine; PCP Internal Medicine; Visit Provider Internal Medicine | DX: R41.82 Altered mental status, unspecified (principal) | CPT/HCPCS: 93010 ==

== ENCOUNTER 2024-02-24 20:41 | Outpatient (BNV) | payer MEDICARE, SELFPAY | END 2024-03-05 07:00 | PROVIDERS: Admitting Provider Physician Assistant; Emergency Provider Emergency Medicine; PCP Internal Medicine; Visit Provider Internal Medicine Cardiovascular Disease | DX: I42.2 Other hypertrophic cardiomyopathy (principal); I34.0 Nonrheumatic mitral (valve) insufficiency; I34.81 Nonrheumatic mitral (valve) annulus calcification; R78.81 Bacteremia | CPT/HCPCS: 93306 ==

== ENCOUNTER → 2024-02-24 20:41 | Outpatient (BNV) | payer MEDICARE, SELFPAY | PROVIDERS: Admitting Provider Physician Assistant; Emergency Provider Emergency Medicine; PCP Internal Medicine; Visit Provider Internal Medicine | DX: N39.0 Urinary tract infection, site not specified (principal); G93.40 Encephalopathy, unspecified; R78.81 Bacteremia | CPT/HCPCS: 99222 ==

== ENCOUNTER → 2024-02-24 20:41 | Outpatient (BNV) | payer MEDICARE, SELFPAY | PROVIDERS: Admitting Provider Physician Assistant; Emergency Provider Emergency Medicine; PCP Internal Medicine; Visit Provider Physician Assistant | DX: N39.0 Urinary tract infection, site not specified (principal); R78.81 Bacteremia; N17.9 Acute kidney failure, unspecified; N18.30 Chronic kidney disease, stage 3 unspecified | CPT/HCPCS: 99223; 99231; 99232; 99233; 99239; 99499 ==

== ENCOUNTER 2024-03-10 10:01 | Day surgery (SDC) | payer MEDICARE, SELFPAY ==
[2024-03-10] VITALS (15 sets, daily range): BP systolic 94–130; BP diastolic 45–77; PULSE 49–56; RESP 18–24; TEMP 36.2; O2SAT 94–100; BMI 27.1
--- NOTE | ~2024-03-10 | IR_ITS ---
CLINICAL HISTORY: Metastatic lung cancer. The patient presents to interventional radiology for placement of a port for chemotherapy. PROCEDURES: 1. Real-time ultrasound-guided access into the right internal jugular vein after documentation of selected vessel patency, and permanent image storing in the patient records. 2. Placement of a 6.0 Persian single-lumen slim power port. CLINICIAN: Nima Smalls PA-C MEDICATIONS: - Versed 2 mg, Fentanyl 125 mcg, Lidocaine 1% 10 mL SQ -Antibiotics: Ancef 2g -For additional details, please see nursing flowsheet. Complications: None. Estimated blood loss: <5 ml Specimens: None. Contrast: None. Fluoroscopy time: 1.3 min MODERATE SEDATION TIME: 31 min PROCEDURE NOTE: The procedure, risks, benefits, and alternatives were carefully explained to the patient and written informed consent was obtained. The patient was placed supine on the fluoroscopy table. A timeout was performed. The right neck and chest was prepped and draped in usual sterile fashion. Maximum barrier technique was utilized. Local anesthesia was administered to the access site with 1% lidocaine. Under ultrasound guidance, the right internal jugular vein was accessed with a 5 fr micropuncture set. A 0.035 in wire was advanced into the IVC. A peel-away sheath was advanced over the wire and into the SVC, and the wire was removed. Next, subcutaneous lidocaine was administered to the chest. The port pocket was created after the skin incision, utilizing blunt dissection. Using blunt dissection, a subcutaneous tunnel was created that connects from the port pocket to the venotomy site. Through the peel-away sheath, the 6.0 Persian port catheter was placed. The catheter position was verified with fluoroscopy to be at the superior vena cava/right atrial junction. The port was connected to the catheter and was placed in the pocket. The venotomy site was closed with a 3-0 Vicryl subcutaneous suture. The port incision site was closed with interrupted 3-0 Vicryl subcutaneous sutures and surgical glue. Prior to closing the skin, 1 g of Ancef solution was placed in the pocket. The port was tested, flushed, and packed with heparin per routine protocol. The patient tolerated the procedure well. The patient was stable after the procedure and was transferred to the PACU. The procedure was performed under moderate sedation and with a dedicated nurse with continuous monitoring of vital signs. A permanent image of the ultrasound the neck and fluoroscopic image of the chest was saved and sent to PACS. FINDINGS: 1. Patent right internal jugular vein 2. Placement of a 6.0 Persian single lumen slim power port. 3. Port flushes and aspirates very well with a 10 mL syringe. No pneumothorax. IR/IR cvc insert tunnel w prt/lead manufacturing engineering tech IMPRESSION: Placement of a 6.0 Persian single-lumen slim power port. PLAN: - The patient will be discharged home when stable by sedation protocol. - Port may be used immediately. This procedure was performed by Nima Smalls PA-C, and directly supervised by Dr. Reeves Electronically signed by: Neri Reeves MD 03/20/2024 03:15 PM [facility] Workstation: [id number]
[2024-03-10 10:57] LABS: Basophils Percent Auto 0.3 % (0-2); Eosinophils Percent Auto 0.7 % (0-4); Hematocrit 25.7 % (37.0-47.0); Hemoglobin 8.4 g/dl (12.0-16.0); Imm Gran Abs Auto 0.01 X10*3/uL (0.00-0.03); Imm Gran Pct Auto 0.3 % (0.0-0.4); Lymphocytes Absolute Auto 2.1 X10*3/uL (1.2-4.9); Lymphocytes Percent Auto 71.4 % (20-40); MANUAL DIFF FLAG SCAN; Mean Corpuscular HGB Conc 32.7 g/dl (31.0-35.0); Mean Corpuscular Hemoglobin 30.3 pg (27.0-33.0); Mean Corpuscular Volume 92.8 fL (80.0-98.0); Mean Platelet Volume 10.6 fL (9.4-12.3); Monocytes Absolute Auto 0.3 X10*3/uL (0.1-1.2); Monocytes Percent Auto 10.1 % (2-11); Neutrophils Absolute Auto 0.5 x10*3/uL (2.0-8.3); Neutrophils Percent Auto 17.2 % (45-73); Red Blood Count 2.77 X10*6/uL (4.20-5.50); Red Cell Distribution Width 19.3 % (11.0-16.0); SCAN SMEAR FLAG 1; White Blood Count 2.9 X10*3/uL (4.8-10.8)
[2024-03-10 10:58] LABS: Platelet Count 83 X10*3/uL (160-400)
[2024-03-10 11:23] LABS: SLIDE REVIEW VERIFIED
--- NOTE | 2024-03-10 12:23 | PC.NURSE ---
Addendum entered by Diane Hawkins RN 03/10/24 13:12: Per Mary Encarnacion, HR of 40's is not patients normal. Her normal is in the 60's . Original Note: Patient in preop, VS taken, bradycardic and hypotensive on monitor; HR low 40's and BP 108/42. Per patient, I feel fine . Call placed to [facility] and spoke with patients nurse Mary Encarnacion. Mary verified patients NPO status as well as what meds were taken with a small sip of water this am, two of the medications being cardiac meds. Heath Smalls made aware of VS and preop CBC results. No new orders at this time. May proceed with procedure.
--- NOTE | 2024-03-10 12:35 | MHC.SHP ---
Pre-Procedural Eval Section A - 24 Hr Update-Section A only Date of Service: 03/10/24 Section B - Complete if H&P > 30 days Chief Complaint: malignant neoplasm lung Details of Present Illness: 73 y/o female with metastatic lung cancer and poor iv access. Relevant Family History (Specify if Yes): No Relevant Social History: Tobacco Use (quit 2 years ago) Present Medications: see Short Stay Collaborative assessment Medical History: Significant History History of Previous Operations: Relevant previous surgery/procedure and date(s) Allergies: Allergies Allergy/AdvReac Type Severity Reaction Status Date / Time carisoprodol [From Soma] Allergy Severe Hives Verified 03/10/24 11:44 codeine Allergy Severe Itching Verified 03/10/24 11:44 Review of Systems Sugical H&P ROS: Negative: Constitution (denies fevers/chills), Cardiovascular (no chest pain) and Neurological (no presyncope) and Yes, Specify: Respiratory (chronic dysnpnea) Exam Surgical H&P Exam: Normal: Lungs and Normal: Skin and Significant Findings: Heart (bradycardic, regular) Plan 73 y/o female with metastatic lung cancer and poor iv access -Port Time Spent With Patient Time: Total time managing care of this patient today ____ minutes.
[2024-03-10] MEDS: Acetaminophen 1,000 MG/100 ML PIGGYBACK 400 MG IV (13:20)
[2024-03-10] MEDS: ceFAZolin Sodium/Dextrose,Iso 2 GM/50 ML PIGGYBACK IV (13:37)
[2024-03-10] MEDS: fentaNYL citrate/PF 100 MCG/2 ML VIAL 50 MCG IVPUSH ×2 (13:45→13:52)
[2024-03-10] MEDS: Midazolam HCl/PF 2 MG/2 ML VIAL 1 MG IVPUSH ×2 (13:46→13:52)
[2024-03-10] MEDS: fentaNYL citrate/PF 100 MCG/2 ML VIAL 25 MCG IVPUSH (14:09)
[2024-03-10] MEDS: HYDROmorphone HCl 2 MG TABLET 4 MG PO (14:52)
== END 2024-03-10 15:12 | disposition home or self-care (01) ==
PROVIDERS: Physician Assistant Surgical; PCP Internal Medicine; Visit Provider Internal Medicine
DX: Z45.2 Encounter for adjustment and management of vascular access device (principal); C34.90 Malignant neoplasm of unspecified part of unspecified bronchus or lung; G89.29 Other chronic pain; R07.9 Chest pain, unspecified; I12.9 Hypertensive chronic kidney disease with stage 1 through stage 4 chronic kidney disease, or unspecified chronic kidney disease; N18.4 Chronic kidney disease, stage 4 (severe); D61.818 Other pancytopenia; K52.9 Noninfective gastroenteritis and colitis, unspecified; R26.2 Difficulty in walking, not elsewhere classified; E87.5 Hyperkalemia; J44.9 Chronic obstructive pulmonary disease, unspecified; Z85.3 Personal history of malignant neoplasm of breast; Z90.11 Acquired absence of right breast and nipple; Z92.3 Personal history of irradiation; Z79.891 Long term (current) use of opiate analgesic; Z79.82 Long term (current) use of aspirin; Z79.899 Other long term (current) drug therapy; Z79.51 Long term (current) use of inhaled steroids; Z88.5 Allergy status to narcotic agent; Z88.8 Allergy status to other drugs, medicaments and biological substances; Z87.891 Personal history of nicotine dependence; Z98.890 Other specified postprocedural states
CPT/HCPCS: 36415; 36561; 85025; 99152; 99153; C1769; C1788; J0131; J0690; J1642; J1644; J2003; J2250; J2310; J3010

== ENCOUNTER → 2024-03-10 11:08 | Outpatient (BNV) | payer MEDICARE, SELFPAY | PROVIDERS: PCP Internal Medicine; Visit Provider Physician Assistant Surgical | DX: C78.00 Secondary malignant neoplasm of unspecified lung (principal) | CPT/HCPCS: 36561; 77001 ==

== ENCOUNTER 2024-05-07 11:20 | Outpatient (RCR) | payer MEDICARE, OTHER, MEDICAID, SELFPAY ==
[2023-10-24 11:36] VITALS: BP 144/70; PULSE 62; O2SAT 90; BMI 29.8
--- NOTE | 2023-10-24 12:10 | PM.HEMONCCN ---
Subjective - Subjective Chief complaint: Consult for: 1. Extensive Small-cell carcinoma of the lung. Patient: new to practice Consult date: 10/24/23 Requesting Physician: Eleazar Le. Primary Care Provider: Eleazar Le. Family Provider: Eleazar Le. Medical Summary: DIAGNOSIS: EXTENSIVE STAGE SMALL-CELL CARCINOMA OF THE LUNG. CURRENT THERAPY: STATUS POST 1 CYCLE OF CARBO AND ETOPOSIDE [facility]. HPI - Consult Narrative Reason for consult: Consult for: 1. Small-cell carcinoma of the lung. 2. H/O breast ca. Narrative: Anna Crawford is a 72 year old lady referred by on account of recent diagnosis of small-cell carcinoma of the lung. She was originally admitted to [facility] in August. She was discharged on 08/27 due to insurance issues, she was not able to follow-up with [facility]. She was referred to [facility] but could not make it to the appointment. On 09/17 she presented to [facility] ED with worsening shortness of breath. She also complained of severe left-sided chest pain. She had chronic diarrhea. Chest x-ray showed increased opacification of the left chest consistent with major consolidation of the left upper lobe with left pleural effusion. She had chest tube placed. She was placed on BiPAP given respiratory distress. She was admitted to [facility] 09/18/2023 with shortness of breath. CT scan revealed: No evidence of PE. New small right apical pneumothorax. Slightly improved aeration the left upper lobe with persistent masslike opacity and surrounding patchy and ground-glass opacities, consistent with known carcinoma. Narrowing of the left upper lobe bronchus and segmental airways likely due to encasement by the mask. Near resolution of the left pleural effusion status post left pleural drainage catheter. Increasing mediastinal and bilateral supraclavicular adenopathy concerning for progression of disease. Pleural fluid cytology was positive for small-cell carcinoma. She underwent chemotherapy with Carbo and etoposide while inpatient in mid September. PAST MEDICAL HISTORY: 1. HYPERTENSION. 2. DIABETES. 3. CKD. 4. ASTHMA. 5. HCV. 6. HISTORY OF RIGHT BREAST CANCER STATUS POST PARTIAL MASTECTOMY IN 2016. STATUS POST XRT COMPLETED [place] [address] Apple.. 7. Previous history of squamous cell carcinoma of the right lung. 8. Had COVID infection end of August. FAMILY HISTORY: Noncontributory. SOCIAL HISTORY: She did different or jobs. 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 She is not . She has 1 son. She smoked a pack-a-day starting age 18. She quit 2 years ago. She used to drink when she went out with her friends. ROS: She has been feeling really fatigued. She does walk sometimes with and sometimes without the help of a walker. No fever chills or night sweats. Appetite is not so good. She is trying to eat. She has lost weight. No headache no dizziness. She does get chest pain and trouble breathing. She does cough up yellow sputum. Denies abdominal pain nausea vomiting heartburn indigestion. Bowels sometimes gets constipated. No gross blood in the stools. No dysuria or hematuria. No joint pain or muscle pain. She denies any focal weakness. He does have a history of depression. She is on medications. No skin rashes but has dry skin. [facility] Medical History: Medical History (Last Updated 10/24/23 @ 11:37 by Roddy Le) HBP (high blood pressure) Social History: Social History (Last Updated 10/24/23 @ 11:33 by Roddy Le) Living Situation History: Household Members: None Tobacco History: Patient Tobacco Use Status: Never used Tobacco Occupation Assessmet: service: No Current occupational status: retired Current occupational status: disabled Home Medications and Allergies Home Medications ?Medication ?Instructions ?Recorded ?Confirmed ?Type aspirin 81 mg capsule 81 mg PO DAILY 10/24/23 10/24/23 History carvedilol 12.5 mg tablet 12.5 mg PO BID 10/24/23 10/24/23 History hydralazine 100 mg tablet 100 mg PO BID 10/24/23 10/24/23 History loperamide 2 mg capsule 2 mg PO Q4H PRN Loose Stool 10/24/23 10/24/23 History Allergies Allergy/AdvReac Type Severity Reaction Status Date / Time carisoprodol [From Soma] Allergy Hives Verified 10/24/23 11:33 codeine Allergy Itching Verified 10/24/23 11:33 Physical Exam Vital signs: Vital Signs Pulse 62 10/24/23 11:36 BP 144/70 H 10/24/23 11:36 Pulse Ox 90 L 10/24/23 11:36 O2 Del Method Room Air 10/24/23 11:36 Intake & Output 10/23/23 10/24/23 10/24/23 18:59 06:59 18:59 Other: Weight 69.3 kg [place] Weight in Grams 77183 Weight 69.3 kg Hem/Onc Consult Result - Labs CBC & Chem 7: 10/24/23 12:45 10/24/23 12:45 Assessment and Plan Patient Active problem list reviewed?: Yes (1) Small cell lung cancer in adult Status: Acute Assessment and plan: This is a pleasant 72-year-old, with recent diagnosis of small-cell carcinoma of the lung, extensive stage disease. Patient previously has had: 1. Breast cancer. 2. Squamous cell carcinoma of the lung. 3. HCC. On 09/17 she presented to [facility] ED with worsening shortness of breath. She also complained of severe left-sided chest pain. She had chronic diarrhea. Chest x-ray showed increased opacification of the left chest consistent with major consolidation of the left upper lobe with left pleural effusion. She had chest tube placed. She was placed on BiPAP given respiratory distress. She was admitted to [facility] 09/18/[address] with short[address] CT scan revealed: No evidence of PE. New small right apical pneumothorax. Slightly improved aeration the left upper lobe with persistent masslike opacity and surrounding patchy and ground-glass opacities, consistent with known carcinoma. Narrowing of the left upper lobe bronchus and segmental airways likely due to encasement by the mask. Near resolution of the left pleural effusion status post left pleural drainage catheter. Increasing mediastinal and bilateral supraclavicular adenopathy concerning for progression of disease. Pleural fluid cytology was positive for small-cell carcinoma. She underwent chemotherapy with Carbo and etoposide while inpatient in mid September. Between 09/19 and 09/21. She has now been referred here for insurance reasons. I offered continuing her treatment here. She and her son are willing. PLAN: Will obtain prior authorization from her insurance and get her started next week. Meanwhile will refer her for pulmonary evaluation for her advanced COPD. Her hemoglobin has been noted to be low. Will arrange for a blood transfusion as well. This has been scheduled for Saturday. She will return next week for that. She will be re-staged after completion of 3 cycles. All her and her son's questions were answered to their satisfaction. Thank you, CC: Dr. David Le. - Time Spent With Patient Time Spent with Patient (in minutes): 30
[2023-10-24 12:46] LABS: MANUAL DIFF FLAG NO
[2023-10-24 12:56] LABS: Basophils Absolute Auto 0.1 X10*3/uL (0.0-0.2); Basophils Percent Auto 0.6 % (0-2); Eosinophils Absolute Auto 0.1 X10*3/uL (0.0-0.4); Eosinophils Percent Auto 1.2 % (0-4); Hematocrit 25.2 % (37.0-47.0); Hemoglobin 8.1 g/dl (12.0-16.0); Imm Gran Abs Auto 0.05 X10*3/uL (0.00-0.03); Imm Gran Pct Auto 0.6 % (0.0-0.4); Lymphocytes Absolute Auto 1.5 X10*3/uL (1.2-4.9); Lymphocytes Percent Auto 18.2 % (20-40); Mean Corpuscular HGB Conc 32.1 g/dl (31.0-35.0); Mean Corpuscular Hemoglobin 27.8 pg (27.0-33.0); Mean Corpuscular Volume 86.6 fL (80.0-98.0); Monocytes Absolute Auto 1.1 X10*3/uL (0.1-1.2); Monocytes Percent Auto 13.3 % (2-11); Neutrophils Absolute Auto 5.4 x10*3/uL (2.0-8.3); Neutrophils Percent Auto 66.1 % (45-73); Platelet Count 341 X10*3/uL (160-400); Red Blood Count 2.91 X10*6/uL (4.20-5.50); Red Cell Distribution Width 14.5 % (11.0-16.0); White Blood Count 8.2 X10*3/uL (4.8-10.8)
[2023-10-24 13:12] LABS: Alanine Aminotransferase 8 U/L (0-31); Alkaline Phosphatase 47 U/L (39-117); Anion Gap 13 (12-20); Aspartate Amino Transferase 14 U/L (5-31); Bilirubin Total 0.3 mg/dL (0.0-1.0); Blood Urea Nitrogen 26 mg/dL (9-16); Calcium 9.8 mg/dL (8.4-10.2); Carbon Dioxide 24 mmol/L (22-29); Chloride 107 mmol/L (96-108); Creatinine Clr Calc Pharmacy 19.7; Estimated Glomerular Filt Rate 22; Glucose Random 119 mg/dL (60-115); Lactate Dehydrogenase 192 U/L (122-220); Potassium 4.6 mmol/L (3.3-5.1); Sodium 139 mmol/L (135-145)
--- NOTE | 2023-10-24 13:44 | MHC.HEMONCSW ---
This senior copywriter met with Anna and her son for psychosocial assessment and to introduce as social service agency director. Anna is a 72 year old woman with a history of breast cancer and current acute kidney injury. She currently resides in a SNF; [facility]. Client signed a medical proxy form, naming her son as proxy, with this senior copywriter as witness. Client denies any anxiety or depressive symptoms. Patient's main concern is transportation to and from appointments. This senior copywriter will look into patient's options and follow up with Anna.
--- NOTE | 2023-10-25 09:19 | HO.HEMONCPA ---
Addendum entered by Marysol Batista 02/11/24 14:52: [id number] is no longer valid. NEW PA Below Authorization StatusApprovedAuthorization [id number] Start Lsyg25-32-5732Iwbuteiivzipe End [id number] Lurbinectedin Drug Name Drug Code Authorization Status Injection, lurbinectedin, 0.1 mg J9223 Approved Injection, fosaprepitant, 1 mg J1453 Approved Ondansetron 1 mg, oral, FDA-approved prescription antiemetic, for use as a complete therapeutic substitute for an IV antiemetic at the time of chemotherapy treatment, not to exceed a 48-hour dosage regimen Q0162 Approved Addendum entered by Marysol Batista 02/11/24 11:01: NEULASTA NOT GIVEN SINCE 01/10/24 PLEASE ADVISE IF NEEDED AFTER 03/10/24 WILL NEED NEW PA Addendum entered by Marysol Batista 11/21/23 08:01: BRANDON SARKAR APPROVED Authorization StatusApprovedAuthorization [id number] Authorization Start Izya78-70-2544Sjgcrtmnrfvbv End Urce29-45-0723 Addendum entered by Marysol Batista 11/20/23 09:36: PA FOR NEULASTA IS PENDING CASE # [id number] AWAITING DECISION FROM [facility] Original Note: PA APPROVED EMEND, ATEZOLIZUMBAB, CARBOPLATIN, ETOPOSIDE FOR 4 CYCLES AND NUELASTA FOR 5 CYCLES Authorization StatusApprovedAuthorization [id number] Start Yzlu79-32-1625Efstzxpevmycr End Yjzw54-18-7019 Carboplatin / Etoposide + AtezolizumabPathway Regimen Drug Name Drug Code Authorization Status Injection, atezolizumab, 10 mg J9022 Approved Injection, carboplatin, 50 mg J9045 Approved Injection, etoposide, 10 mg J9181 Approved Injection, fosaprepitant, 1 mg J1453 Approved Your authorization request number is?[id number].?If you need to add a new chemotherapy drug, supportive care drug, or a new chemotherapy regimen, you will need to submit a new authorization request. Authorization StatusApprovedAuthorization [id number] Start Reie48-45-3094Rechiwyzkjhta End Thnz77-07-7733 Injection, pegfilgrastim, excludes biosimilar, 0.5 mg J2506
--- NOTE | 2023-10-28 13:37 | MHC.HEMONC ---
Pt hgb last week at Consultation was 8.1. She lives in SNF and earliest transportation she could get arranged is for this . She is booked and [facility] is communicating with staff there re: appt.
--- NOTE | 2023-10-28 13:38 | MHC.HEMONCSW ---
This newswriter arranged transportation for patient to come for blood transfusion appointment on 10/30 at 8:30 am. Patient unable to secure transportation to come for originally scheduled appointment of Saturday 10/28 at 8:00 am. Patient advised if she becomes symptomatic before morning, to go to the ED for treatment.
--- NOTE | 2023-10-29 11:39 | HE.ONCSEC ---
consult notes faxed to pcp
[2023-10-31 08:27] LABS: MANUAL DIFF FLAG NO
[2023-10-31 08:30] VITALS: BP 118/62; PULSE 58; RESP 18; TEMP 36.9; O2SAT 97
[2023-10-31 08:35] LABS: Basophils Percent Auto 0.4 % (0-2); Eosinophils Absolute Auto 0.4 X10*3/uL (0.0-0.4); Eosinophils Percent Auto 4.5 % (0-4); Hematocrit 26.1 % (37.0-47.0); Hemoglobin 8.2 g/dl (12.0-16.0); Imm Gran Abs Auto 0.05 X10*3/uL (0.00-0.03); Imm Gran Pct Auto 0.5 % (0.0-0.4); Lymphocytes Absolute Auto 1.8 X10*3/uL (1.2-4.9); Lymphocytes Percent Auto 18.2 % (20-40); Mean Corpuscular HGB Conc 31.4 g/dl (31.0-35.0); Mean Corpuscular Hemoglobin 27.8 pg (27.0-33.0); Mean Corpuscular Volume 88.5 fL (80.0-98.0); Mean Platelet Volume 11.4 fL (9.4-12.3); Monocytes Absolute Auto 1.1 X10*3/uL (0.1-1.2); Monocytes Percent Auto 10.9 % (2-11); Neutrophils Absolute Auto 6.4 x10*3/uL (2.0-8.3); Neutrophils Percent Auto 65.5 % (45-73); Platelet Count 229 X10*3/uL (160-400); Red Blood Count 2.95 X10*6/uL (4.20-5.50); Red Cell Distribution Width 15.2 % (11.0-16.0); White Blood Count 9.7 X10*3/uL (4.8-10.8)
[2023-10-31 10:33] VITALS: BP 118/62; PULSE 58; RESP 18; TEMP 36.9
[2023-10-31 10:49] VITALS: BP 138/70; PULSE 50; RESP 18; TEMP 36.8
[2023-10-31 12:31] VITALS: BP 152/72; PULSE 100; RESP 18; TEMP 36.5
--- NOTE | 2023-10-31 15:58 | MHC.HEMONC ---
Pt here for blood transfusion. H & H 8.05/06.1/platelets 229. Pt has double lumen PICC line in right upper arm inserted at [facility] on 09/24/23-see scanned report. PICC site dressing dry and intact-[facility] facility changed dressing on 10/30/23. PICC unclamped and flushed with 0.9% NS-patent with blood return noted. Vital signs as noted, breath sounds clear. Consent for blood transfusion obtained. One unit RBC given as ordered at 200ml after first 15 minutes-vital signs remain stable after transfusion with continued clear breath sounds. Chemo teach given on Atezolizumab, Carboplatin, Etoposide. Potential side effects, need for pre chemo lab draw, when to call the doctor, educational literature on chemo medication given. Signed chemo consent-all questions answered to patients satisfaction. PICC line flushed with 0.9% NS-clamped and capped. Discharge packet given with next appointment scheduled. Discharged to front of hospital
--- NOTE | 2023-11-01 15:33 | MHC.HEMONC ---
[facility] called to confirm patients's rides. All rides have been confirmed.
[2023-11-05 08:34] VITALS: BP 150/61; PULSE 58; RESP 18; TEMP 36.7; O2SAT 98; BMI 29.7
[2023-11-05 08:46] LABS: MANUAL DIFF FLAG NO
[2023-11-05 08:52] LABS: Basophils Percent Auto 0.3 % (0-2); Eosinophils Absolute Auto 0.3 X10*3/uL (0.0-0.4); Eosinophils Percent Auto 2.6 % (0-4); Hematocrit 29.8 % (37.0-47.0); Hemoglobin 9.6 g/dl (12.0-16.0); Imm Gran Abs Auto 0.06 X10*3/uL (0.00-0.03); Imm Gran Pct Auto 0.5 % (0.0-0.4); Lymphocytes Absolute Auto 1.6 X10*3/uL (1.2-4.9); Lymphocytes Percent Auto 12.3 % (20-40); Mean Corpuscular HGB Conc 32.2 g/dl (31.0-35.0); Mean Corpuscular Hemoglobin 27.9 pg (27.0-33.0); Mean Corpuscular Volume 86.6 fL (80.0-98.0); Mean Platelet Volume 11.1 fL (9.4-12.3); Monocytes Absolute Auto 1.1 X10*3/uL (0.1-1.2); Monocytes Percent Auto 8.6 % (2-11); Neutrophils Absolute Auto 10.1 x10*3/uL (2.0-8.3); Neutrophils Percent Auto 75.7 % (45-73); Platelet Count 196 X10*3/uL (160-400); Red Blood Count 3.44 X10*6/uL (4.20-5.50); Red Cell Distribution Width 15.5 % (11.0-16.0); White Blood Count 13.3 X10*3/uL (4.8-10.8)
[2023-11-05 09:15] LABS: Alanine Aminotransferase 7 U/L (0-31); Alkaline Phosphatase 53 U/L (39-117); Anion Gap 14 (12-20); Aspartate Amino Transferase 14 U/L (5-31); Bilirubin Total 0.3 mg/dL (0.0-1.0); Blood Urea Nitrogen 32 mg/dL (9-16); Calcium 9.8 mg/dL (8.4-10.2); Carbon Dioxide 22 mmol/L (22-29); Chloride 106 mmol/L (96-108); Creatinine Clr Calc Pharmacy 15.9; Estimated Glomerular Filt Rate 17; Glucose Random 117 mg/dL (60-115); Sodium 138 mmol/L (135-145); Total Protein 6.1 g/dL (6.5-8.0)
[2023-11-05] MEDS: Acetaminophen 325 MG TABLET 650 MG PO (09:37)
[2023-11-05] MEDS: diphenhydrAMINE HCL 50 MG/ML VIAL 25 MG IVPUSH (09:38)
[2023-11-05] MEDS: Famotidine/PF 20 MG/2 ML VIAL IVPUSH (09:38)
[2023-11-05] MEDS: dexAMETHasone sod phosphate/NS 12 MG/50 ML PIGGYBACK 200 MG IV (09:38)
[2023-11-05] MEDS: Fosaprepitant Dimeglumine 150 MG in 0.9 % Sodium Chloride 145 ML 300 MG IV (09:46)
[2023-11-05 09:56] LABS: HBS Num1 1.02 mIU/mL (0-7.99); HBc Num1 3.28 S/CO (0.00-0.79); HBsAGNum1 0.48 S/CO (0.00-0.99); Hepatitis B Surface Antigen Negative (Negative); ~Hepatitis B Surface Antibody NONREACTIVE (Nonreactive)
[2023-11-05] MEDS: Atezolizumab 1,200 MG in 0.9 % Sodium Chloride 250 ML 270 MG IV (11:29)
[2023-11-05 12:24] LABS: HBc Num3 3.21 S/CO; Hepatitis B Core Antibody Reactive (Nonreactive)
--- NOTE | 2023-11-05 14:31 | MHC.HEMONC ---
pt toalerated treatment no s/sx of reaction. picc capped off, bio patch sent with pt for nurses to use for next dressing change at [facility].
[2023-11-06 08:10] VITALS: BP 176/72; PULSE 58; RESP 18; TEMP 36.7; O2SAT 98; BMI 29.6
--- NOTE | 2023-11-06 08:36 | MHC.HEMONC ---
Pt here for C5D1 Folfiri/Cetuximab (holding cetuximab due to rash) Pt reported rash to face/mouth/ mild on chest. Rash is improving. Pt does not want Cetuximab any more. Pt did not car pick up driver Medrol dose pack because they took too long he will car pick up driver today. Dr Echeverria aware and pt will get Folfiri only today. Pt has no other complaints. Port to right chest accessed, good blood return. Labs drawn and brought to lab.
[2023-11-06] MEDS: Ondansetron ODT 8 MG TAB.RAPDIS TRANSLINGU (09:04)
[2023-11-06] MEDS: Acetaminophen 325 MG TABLET 650 MG PO (10:25)
--- NOTE | 2023-11-06 11:31 | MHC.HEMONCSW ---
This mortgage or loan underwriter met with Anna for 10 minutes while she was in the clinic for her treatment. Patient did not identify any additional support needs at this time beyond her scheduled transportation for her appointments. This mortgage or loan underwriter will follow up with patient at her next appointment.
[2023-11-07 08:32] VITALS: BP 128/59; PULSE 55; RESP 18; TEMP 36.6; O2SAT 98; BMI 29.6
[2023-11-07] MEDS: Ondansetron ODT 8 MG TAB.RAPDIS TRANSLINGU (08:56)
[2023-11-07] MEDS: Acetaminophen 325 MG TABLET 650 MG PO (09:06)
--- NOTE | 2023-11-07 09:46 | MHC.HEMONC ---
pt tolerated first cycle well no s/sx of reaction. pt is at [facility], they do picc line dressing change. bio patch applied here.
--- NOTE | 2023-11-08 15:13 | MHC.HEMONC ---
Pt was in for Neulasta injection, nurse confirmed BRANDON, arrived via w/c [employer] chair car from [facility], reported feeling ok today, nurse admin Neulasta 6 mg SC to pt's LUE. Unfortunately, pt's ambulance company departed in spite of her appt only lasting 5 minutes. Nurses called [facility] at [phone], were told that they are only contracted for 1 hour appts at a minimum, so [facility] was booked for her return pick-up at 3pm. They arrived, nurse brought pt to [facility], where she was met by founder chairman and chief creative officer, was given d/c packet, to return 11/26/23 for next cycle.
--- NOTE | 2023-11-14 12:49 | MHC.HEMONC ---
Triage call-received call from [facility] who state pt had repeat blood draw in rehab and has some critical results. WBC 0.9, RBC 2.1, HGB 5.[address] Jesus-plan for pt to go to ED [facility] notified and confirm that pt will be transferred to [facility] or [facility] ED
--- NOTE | 2023-11-19 17:00 | MHC.HEMONC ---
Pt's SNF, [facility], called to report pt had labs drawn. platelet count was 15 today, Dr. Echeverria ordered for pt to receive platelet transfusion this week. Nurse called [facility], spoke denise Yang, who said they had attempted to contact pt's son, but did not hear back, and would not be able to get her to this clinic any earlier than , 11/20 due to booking transportation. Alternatively, she said, they could send her to the ER. Dr. Echeverria said pt can wait until . Nurse confirmed denise Yang at [facility], pt was booked to arrive by transport at 08:30 on 11/20, nurse booked pt for platelet transfusion at 08:40, Elvis was notified at blood bank, requested to order x1 dose of platelets to arrive the night before to be ready on morning. Nurse entered orders to have type and screen drawn upon pt's arrival. Celia also said she booked a berry picker time of 2pm on afternoon.
[2023-11-21 08:39] VITALS: BP 135/73; PULSE 54; RESP 18; TEMP 36.6; O2SAT 98; BMI 28.8
[2023-11-21 09:17] LABS: Hematocrit 26.1 % (37.0-47.0); Hemoglobin 8.8 g/dl (12.0-16.0); Mean Corpuscular HGB Conc 33.7 g/dl (31.0-35.0); Mean Corpuscular Hemoglobin 28.9 pg (27.0-33.0); Mean Corpuscular Volume 85.6 fL (80.0-98.0); Mean Platelet Volume 11.5 fL (9.4-12.3); Red Blood Count 3.05 X10*6/uL (4.20-5.50); Red Cell Distribution Width 14.6 % (11.0-16.0); White Blood Count 12.3 X10*3/uL (4.8-10.8)
[2023-11-21 09:18] LABS: Platelet Count 62 X10*3/uL (160-400)
[2023-11-21 09:45] LABS: Atypical Lymph Absolute Manual 0.1 x10*3/uL; Atypical Lymphs Percent Manual 1 % (0-6); Band Neutrophils Percent 6 % (3-5); Lymphocytes Absolute Manual 1.6 X10*3/uL (1.2-4.9); Lymphocytes Percent Manual 13 % (20-40); Metamyelocytes Absolute 0.5 X10*3/uL; Metamyelocytes Percent 4 %; Monocytes Absolute Manual 0.7 X10*3/uL (0.1-1.2); Monocytes Percent Manual 6 % (2-11); Neutrophils Absolute Manual 9.3 X10*3/uL (2.0-8.3); Neutrophils Percent Manual 70 % (45-73)
[2023-11-21 09:46] LABS: Basophilic Stippling 1+ (0-2) /OIF; Dohle Bodies PRESENT; Hypochromasia 1+ (5-14) /OIF; Ovalocytes 1+ (5-14) /OIF; Platelet Estimate DECREASED (NORMAL); Platelet Morphology Comment NORMAL; Polychromasia 1+ (0-2) /OIF; RBC Morphology NOTED; Toxic Granulation PRESENT
[2023-11-21] MEDS: HYDROmorphone HCl 2 MG TABLET PO (11:31)
--- NOTE | 2023-11-21 17:29 | MHC.HEMONC ---
Pt was in today for sched Platelets transfusion, VSS, said she felt ok, a bit tired. Nurse flushed pt's RUE double-lumen PICC, found positive blood return in both lumens, james blood specimens off red-lumen for repeat CBC and type + screen. Pt's [facility] had reported Plt count of 15 2 days before, but today her Plt resulted at 62, per Dr. Jesus no need for transfusion. Blood bank was notified, nurse did give pt x1 dose of PRN dilaudid 2 mg PO, w/ some effect, for c/o bilat chest pain associated w/ her cancer. Nurse also noted pt's extremely dry, flaky skin to bilat forearms, sent note home w/ pt and called rehab to ask them to moisturize pt's arms routinely henceforth. Pt was given d/c packet, PICC line was flushed w/ NS and capped, clamped. Pt departed via transport van, to return next Sat, 11/25 for next tx cycle.
[2023-11-26 09:15] VITALS: BP 153/72; PULSE 62; RESP 18; TEMP 36.6; O2SAT 100; BMI 29.1
[2023-11-26 10:08] LABS: Hematocrit 25.4 % (37.0-47.0); Hemoglobin 8.3 g/dl (12.0-16.0); Mean Corpuscular HGB Conc 32.7 g/dl (31.0-35.0); Mean Corpuscular Hemoglobin 28.7 pg (27.0-33.0); Mean Corpuscular Volume 87.9 fL (80.0-98.0); Mean Platelet Volume 10.1 fL (9.4-12.3); Platelet Count 258 X10*3/uL (160-400); Red Blood Count 2.89 X10*6/uL (4.20-5.50); Red Cell Distribution Width 15.4 % (11.0-16.0); White Blood Count 11.8 X10*3/uL (4.8-10.8)
--- NOTE | 2023-11-26 10:16 | P.PNHO-ONC_ITS ---
Medical Summary - Medical Summary Date of Service: 11/26/23 Chief complaint: Follow-up for: Small cell carcinoma of the lung. Primary Care Provider: Eleazar Le III, MD Medical Summary: DIAGNOSIS: EXTENSIVE STAGE SMALL-CELL CARCINOMA OF THE LUNG. CURRENT THERAPY: STATUS POST 1 CYCLE OF CARBO AND ETOPOSIDE AN INPATIENT AT [facility] END OF SEPTEMBER. CYCLE 2 RECEIVED ON 11/04, with atezolizumab. HERE FOR CYCLE 3. Interval History Interval history: Anna Crawford is a 72 year old lady, here for a follow-up visit. Patient received her 2nd cycle of carbo etoposide and atezolizumab on 11/04. She was subsequently admitted on 11/13 till 11/14. Discharge summary: 72-year-old female with a PMH significant for small cell lung cancer, chronic chest pain on chronic hydromorphone, breast cancer s/p partial mastectomy and radiation, HTN, CKD 4, and IBS/chronic diarrhea who presents to the ED from SNF after routine labs found significant pancytopenia. Patient admitted to medical floor with a diagnosis of pancytopenia with CBC showing WBCs 0.8, H&H 5.7/17.7, neutrophils 6, Absolute neutrophil count: 80 cells/microliter likely secondary to chemotherapy for small-cell lung cancer on carboplatin, etoposide, and atezolizumab with last infusion 11/04, patient denied bleeding, no fevers, no cough or abdominal pain received 2 units of packed RBC hematocrit improved to 24.9, hemoglobin 8.3 for neutropenia received 2 dosages of Granix, since patient is hemodynamically stable and asymptomatic, other than chronic anterior chest wall pain, therefore being discharged back to rehab facility recommend to continue neutropenic precautions and monitor CBC, patient admitted to chronic diarrhea with no recent change, no worsening abdominal pain, no nausea or vomiting. In regard to hypertension recommend to continue home medications Coreg and hydralazine, noted to have no acute COPD exacerbation, and is continued on loperamide for her chronic diarrhea. She has been feeling better. She walks with the help of a walker. No fever chills or night sweats. No headache no dizziness. She does get chest pain and trouble breathing. She does cough up yellow sputum. She denies abdominal pain nausea vomiting heartburn indigestion. Bowels sometimes gets constipated. No gross blood in the stools. Appetite is good. She is trying to eat. She has lost weight. No dysuria or hematuria. No joint pain or muscle pain. She denies any focal weakness. She does have a history of depression. She is on medications. No skin rashes but has dry skin. PRESENTING HISTORY: She was referred by Dr. Eleazar Le, on account of recent diagnosis of small- cell carcinoma of the lung. She was originally admitted to [facility] in August. She was discharged on 08/27 due to insurance issues, she was not able to follow-up with [facility]. She was referred to [facility] but could not make it to the appointment. On 09/17 she presented to [facility] ED with worsening shortness of breath. She also complained of severe left-sided chest pain. She had chronic diarrhea. Chest x-ray showed increased opacification of the left chest consistent with major consolidation of the left upper lobe with left pleural effusion. She had chest tube placed. She was placed on BiPAP given respiratory distress. She was admitted to [facility] 09/18/2023 with shortness of breath. CT scan revealed: No evidence of PE. New small right apical pneumothorax. Slightly improved aeration the left upper lobe with persistent masslike opacity and surrounding patchy and ground-glass opacities, consistent with known carcinoma. Narrowing of the left upper lobe bronchus and segmental airways likely due to encasement by the mask. Near resolution of the left pleural effusion status post left pleural drainage catheter. Increasing mediastinal and bilateral supraclavicular adenopathy concerning for progression of disease. Pleural fluid cytology was positive for small-cell carcinoma. She underwent chemotherapy with Carbo and etoposide while inpatient in mid September. PAST MEDICAL HISTORY: 1. HYPERTENSION. 2. DIABETES. 3. CKD. 4. ASTHMA. 5. HCV. 6. HISTORY OF RIGHT BREAST CANCER STATUS POST PARTIAL MASTECTOMY IN 2016. STATUS POST XRT COMPLETED [place] [address] Apple.. 7. Previous history of squamous cell carcinoma of the right lung. 8. Had COVID infection end of August. FAMILY HISTORY: Noncontributory. SOCIAL HISTORY: She did different or jobs. 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 She is not . She has 1 son. She smoked a pack-a-day starting age 18. She quit 2 years ago. She used to drink when she went out with her friends. Review of Systems - Constitutional Reports no additional constitutional complaints, Reports lack of energy, Reports malaise, Denies weight loss - Eyes Reports no additional eye complaints - ENT Reports no additional ear, nose, mouth, and throat complaints - Cardiovascular Reports no additional cardiovascular complaints - Respiratory Reports no additional respiratory complaints - Gastrointestinal Reports no additional gastrointestinal complaints - Genitourinary Reports no additional female genitourinary complaints - Musculoskeletal Reports no additional musculoskeletal complaints - Integumentary/Breasts Skin/Breast: Reports no additional skin complaints - Neurologic Reports no additional neurologic complaints - Psychiatric Reports no additional psychiatric complaints - Endocrine Reports no additional endocrine complaints - Hematologic/Lymphatic Reports no additional hematologic/lymphatic complaints - Allergic/Immunologic Reports no additional allergic/immunologic complaints PMFSH Medical History: Medical History (This Medical Record has been edited. Action required.) Breast cancer Chronic diarrhea CKD (chronic kidney disease) HBP (high blood pressure) HTN (hypertension) Functional capacity: uses cane/walker Patient : No Social History: Social History (This Medical Record has been edited. Action required.) Living Situation History: Household Members: Spouse Housing: Longterm Do you presently have visiting nurse or other home services: No Alcohol History Details: 1. How often do you have a drink containing alcohol?: a. Never Tobacco History: Patient Tobacco Use Status: Former Tobacco user Tobacco use type: Cigarette e-Cigarette/Vaping Use: Never Used Second Hand Smoke Exposure: No Substance Use History: Use of substances other than those prescribed or required for medical reasons : No Domestic Abuse History: Have you been hit, kicked, punched, or otherwise hurt by someone within the past year? If so, by whom?: No Do you feel safe in your current relationship?: Yes Homicidal Assessment: Do you have thoughts of harming others: None Do you have a plan to hurt others: No Plan Nutrition Assessment: Patient : No Occupation Assessmet: service: No Current occupational status: retired Current occupational status: disabled Oncology Screenings - ECOG Performance Status ECOG Performance Status: 1 Home Medications and Allergies Current Medications: Current Medications Heparin Sodium (Porcine) (Heparin Sodium,Porcine Flush 500 Unit/5 Ml Syringe) 500 unit IVFLUSH ONCE SADE Stop: 11/26/23 23:59 Home Medications ?Medication ?Instructions ?Recorded ?Confirmed ?Type aspirin 81 mg capsule 81 mg PO DAILY 10/24/23 10/24/23 History carvedilol 12.5 mg tablet 12.5 mg PO BID 10/24/23 10/24/23 History hydralazine 100 mg tablet 100 mg PO BID 10/24/23 10/24/23 History loperamide 2 mg capsule 2 mg PO Q4H PRN Loose Stool 10/24/23 10/24/23 History ondansetron 8 mg disintegrating 8 mg PO Q8H PRN Nausea And Vomiting 11/05/23 11/05/23 History tablet acetaminophen 325 mg tablet 650 mg PO Q8H PRN Pain 11/14/23 11/14/23 History aspirin 81 mg tablet,delayed 81 mg PO DAILY 11/14/23 11/14/23 History release bisacodyl 10 mg rectal suppository 10 mg IA DAILY PRN Constipation 11/14/23 11/14/23 History carvedilol 12.5 mg tablet 12.5 mg PO BID 11/14/23 11/14/23 History folic acid 1 mg tablet 1 mg PO DAILY 11/14/23 11/14/23 History hydralazine 100 mg tablet 100 mg PO BID 11/14/23 11/14/23 History hydromorphone 2 mg tablet 1 mg PO Q4H PRN Pain, Moderate 11/14/23 11/14/23 History hydromorphone 2 mg tablet 2 mg PO Q4H PRN Pain, Severe 11/14/23 11/14/23 History ipratropium 0.5 mg-albuterol 3 mg 3 ml inhalation Q4H PRN Shortness 11/14/23 11/14/23 History (2.5 mg base)/3 mL nebulization Of Breath soln ipratropium 0.5 mg-albuterol 3 mg 3 ml inhalation QID 11/14/23 11/14/23 History (2.5 mg base)/3 mL nebulization soln loperamide 2 mg capsule 2 mg PO Q3H PRN Loose Stool 11/14/23 11/14/23 History magnesium hydroxide 400 mg/5 mL 30 ml PO DAILY PRN Constipation 11/14/23 11/14/23 History oral suspension (Milk of Magnesia) ondansetron HCl 8 mg tablet 8 mg PO Q8H PRN Nausea And Vomiting 11/14/23 11/14/23 History polyethylene glycol 3350 17 17 g PO DAILY 11/14/23 11/14/23 History gram/dose oral powder (Miralax) sennosides 8.6 mg tablet (senna) 17.2 mg PO BEDTIME 11/14/23 11/14/23 History sodium phosphates 19 gram-7 118 ml IA DAILY PRN Constipation 11/14/23 11/14/23 History gram/118 mL enema (Fleet Enema) thiamine HCl (vitamin B1) 100 mg 100 mg PO DAILY 11/14/23 11/14/23 History tablet trazodone 100 mg tablet 100 mg PO BEDTIME 11/14/23 11/14/23 History trazodone 50 mg tablet 50 mg PO BEDTIME 11/14/23 11/14/23 History Allergies Allergy/AdvReac Type Severity Reaction Status Date / Time carisoprodol [From Soma] Allergy Hives Verified 11/21/23 07:37 codeine Allergy Itching Verified 11/21/23 07:37 Exam Vital signs: Vital Signs Temp 97.8 F 11/26/23 09:15 Pulse 62 11/26/23 09:15 Resp 18 11/26/23 09:15 BP 153/72 H 11/26/23 09:15 Pulse Ox 100 11/26/23 09:15 O2 Del Method Nasal Cannula 11/26/23 09:15 O2 Flow Rate 2 11/26/23 09:15 Intake & Output 11/25/23 11/26/23 11/26/23 18:59 06:59 18:59 Other: Weight 67.6 kg Weight in Grams [id number] Weight 67.6 kg BMI result Body Mass Index 29.1 - Constitutional Present: no acute distress - Routine HEENT Exam Head: Present: normal inspection Eye: Present: normal appearance ENT: Present: mucous membranes moist - Routine Neck Exam Present: full ROM - Routine Respiratory Exam Present: CTAB - Routine Cardiovascular Exam Cardiovascular: Present: RRR, S1, S2 - Routine Abdominal Exam Present: soft, nontender - Routine Rectal Exam Patient deferred: digital exam - Routine Extremities Exam Present: nontender - Routine Back/Spine/Pelvis Exam Back/Spine: Present: full ROM - Routine Skin Exam Present: intact - Routine Neurological Exam Present: alert, oriented X3 - Routine Psychiatric Exam Present: normal affect Data - Labs CBC & Chem 7: 11/26/23 09:45 11/26/23 09:45 Labs: Laboratory Last Values WBC 11.8 X10*3/uL (4.8-10.8) H 11/26/23 09:45 RBC 2.89 X10*6/uL (4.20-5.50) L 11/26/23 09:45 Hgb 8.3 g/dl (12.0-16.0) L 11/26/23 09:45 Hct 25.4 % (37.0-47.0) L 11/26/23 09:45 MCV 87.9 fL (80.0-98.0) 11/26/23 09:45 MCH 28.7 pg (27.0-33.0) 11/26/23 09:45 MCHC 32.7 g/dl (31.0-35.0) 11/26/23 09:45 RDW 15.4 % (11.0-16.0) 11/26/23 09:45 Plt Count 258 X10*3/uL (160-400) D 11/26/23 09:45 MPV 10.1 fL (9.4-12.3) 11/26/23 09:45 Immature Gran % (Auto) Cancelled 11/26/23 09:45 Neut % (Auto) Cancelled 11/26/23 09:45 Lymph % (Auto) Cancelled 11/26/23 09:45 Grimes % (Auto) Cancelled 11/26/23 09:45 Eos % (Auto) Cancelled 11/26/23 09:45 Baso % (Auto) Cancelled 11/26/23 09:45 Lymph # (Auto) Cancelled 11/26/23 09:45 Grimes # (Auto) Cancelled 11/26/23 09:45 Eos # (Auto) Cancelled 11/26/23 09:45 Baso # (Auto) Cancelled 11/26/23 09:45 Abs Immat Gran (auto) Cancelled 11/26/23 09:45 Absolute Neuts (auto) Cancelled 11/26/23 09:45 Absolute Nucleated RBC 0.000 X10*3/uL (0.0-0.012) 11/26/23 09:45 Nucleated RBC % (auto) 0.0 /100WBC (0.0-0.2) 11/26/23 09:45 Neutrophils % (Manual) 70 % (45-73) 11/21/23 09:00 Band Neutrophils % 6 % (3-5) H 11/21/23 09:00 Lymphocytes % (Manual) 13 % (20-40) L 11/21/23 09:00 Atypical Lymphs % (Man) 1 % (0-6) 11/21/23 09:00 Monocytes % (Manual) 6 % (2-11) 11/21/23 09:00 Metamyelocytes % 4 % 11/21/23 09:00 Abs Neuts (Manual) 9.3 X10*3/uL (2.0-8.3) H 11/21/23 09:00 Lymphocytes # (Manual) 1.6 X10*3/uL (1.2-4.9) 11/21/23 09:00 Atyp Lymphs # (Manual) 0.1 x10*3/uL 11/21/23 09:00 Monocytes # (Manual) 0.7 X10*3/uL (0.1-1.2) 11/21/23 09:00 Metamyelocytes # 0.5 X10*3/uL 11/21/23 09:00 Toxic Granulation PRESENT 11/21/23 09:00 Dohle Bodies PRESENT 11/21/23 09:00 Platelet Estimate DECREASED (NORMAL) 11/21/23 09:00 Plt Morphology Comment NORMAL 11/21/23 09:00 RBC Morphology NOTED 11/21/23 09:00 Polychromasia 1+ (0-2) /OIF 11/21/23 09:00 Hypochromasia 1+ (5-14) /OIF 11/21/23 09:00 Basophilic Stippling 1+ (0-2) /OIF 11/21/23 09:00 Ovalocytes 1+ (5-14) /OIF 11/21/23 09:00 Sodium 138 mmol/L (135-145) 11/05/23 08:44 Potassium 4.0 mmol/L (3.3-5.1) 11/05/23 08:44 Chloride 106 mmol/L (96-108) 11/05/23 08:44 Carbon Dioxide 22 mmol/L (22-29) 11/05/23 08:44 Anion Gap 14 (12-20) 11/05/23 08:44 BUN 32 mg/dL (9-16) H 11/05/23 08:44 Creatinine 2.68 mg/dL (0.5-1.4) H 11/05/23 08:44 Estim Creat Clear Calc 15.9 11/05/23 08:44 Estimated GFR 17 11/05/23 08:44 Random Glucose 117 mg/dL (60-115) H 11/05/23 08:44 Calcium 9.8 mg/dL (8.4-10.2) 11/05/23 08:44 Total Bilirubin 0.3 mg/dL (0.0-1.0) 11/05/23 08:44 AST 14 U/L (5-31) 11/05/23 08:44 ALT 7 U/L (0-31) 11/05/23 08:44 Alkaline Phosphatase 53 U/L (39-117) 11/05/23 08:44 Lactate Dehydrogenase 192 U/L (122-220) 10/24/23 12:45 Total Protein 6.1 g/dL (6.5-8.0) L 11/05/23 08:44 Albumin 3.0 g/dL (3.5-5.0) L 11/05/23 08:44 TSH 1.10 uIU/mL (0.32-4.0) 11/05/23 08:44 Hep Bs Antigen Negative (Negative) 11/05/23 08:44 Hep Bs Antibody NONREACTIVE (Nonreactive) 11/05/23 08:44 Hep B Core Total Ab Reactive (Nonreactive) 11/05/23 08:44 Hep B Core IgM Ab Cancelled 11/05/23 08:44 Blood Type A Positive 11/21/23 09:00 Antibody Screen NEGATIVE 11/21/23 09:00 Crossmatch See Detail 10/31/23 08:20 Assessment and Plan Patient Active problem list reviewed?: Yes (1) Small cell lung cancer in adult Status: Acute Assessment and plan: This is a pleasant 72-year-old, with recent diagnosis of small-cell carcinoma of the lung, extensive stage disease. Patient previously has had: 1. Breast cancer. 2. Squamous cell carcinoma of the lung. 3. HCC. On 09/17 she presented to [facility] ED with worsening shortness of breath. She also complained of severe left-sided chest pain. She had chronic diarrhea. Chest x-ray showed increased opacification of the left chest consistent with major consolidation of the left upper lobe with left pleural effusion. She had chest tube placed. She was placed on BiPAP given respiratory distress. She was admitted to [facility] 09/18/2023 with shortness of [address] CT scan revealed: No evidence of PE. New small right apical pneumothorax. Slightly improved aeration the left upper lobe with persistent masslike opacity and surrounding patchy and ground-glass opacities, consistent with known carcinoma. Narrowing of the left upper lobe bronchus and segmental airways likely due to encasement by the mask. Near resolution of the left pleural effusion status post left pleural drainage catheter. Increasing mediastinal and bilateral supraclavicular adenopathy concerning for progression of disease. Pleural fluid cytology was positive for small-cell carcinoma. She underwent chemotherapy with Carbo and etoposide while inpatient in mid September. Between 09/19 and 09/21. She was then referred here for insurance reasons. I offered continuing her treatment here. She and her son were willing. She received cycle 2 with atezolizumab on 11/04. She ended up in the hospital on 11/13 with pancytopenia and neutropenic sepsis. She is here for cycle 3. Feels reasonably well. PLAN: Will decrease the chemotherapy doses to 75%. Will check her labs next week and arrange for blood transfusion if needed. Meanwhile will refer her for pulmonary evaluation for her advanced COPD. She will be re-staged after completion of 3 cycles. All her and her son's questions were answered to their satisfaction. Thank you, CC: Dr. David Le. - Time Spent With Patient Time Spent with Patient (in minutes): 30
--- NOTE | 2023-11-26 10:29 | MHC.HEMONCSW ---
This abstract writer met with Anna at the outset of her treatment session. Patient reported she was feeling okay today and that she was cold. Patient did not identify any support needs at this time. This abstract writer spent approximately 10 minutes with patient.
--- NOTE | 2023-11-26 10:30 | MHC.HEMONC ---
Addendum entered by Malinda Juarez RN 11/26/23 16:09: Labs reviewed. OK for treatment. Premeds given as ordered. Treatment done and tolerated well. Scheduled for D2 in AM. Pt also medicated with dilaudid 2 mg po for c/o pain. Pt departed via wheelchair. Departure packet given. Per Dr Jesus, pt is scheduled for labs and possible transfusion in 1 week. Original Note: Here for C2 D1 Atezolizumab/Carbo/Etoposide. States she feels well, except she did have some diarrhea this morning, and was given Imodium this morning at the rehab. Has PICC line, which flushes well. Labs obtained, waiting for results.
[2023-11-26 10:34] LABS: Alanine Aminotransferase 8 U/L (0-31); Alkaline Phosphatase 67 U/L (39-117); Anion Gap 11 (12-20); Aspartate Amino Transferase 20 U/L (5-31); Bilirubin Total 0.2 mg/dL (0.0-1.0); Blood Urea Nitrogen 35 mg/dL (9-16); Calcium 9.4 mg/dL (8.4-10.2); Carbon Dioxide 21 mmol/L (22-29); Chloride 111 mmol/L (96-108); Estimated Glomerular Filt Rate 22; Glucose Random 123 mg/dL (60-115); Potassium 4.4 mmol/L (3.3-5.1); Sodium 139 mmol/L (135-145); Total Protein 5.7 g/dL (6.5-8.0)
[2023-11-26 10:40] LABS: Band Neutrophils Percent 7 % (3-5); Basophils Abs Manual 0.1 X10*3/uL (0.0-0.2); Basophils Percent Manual 1 % (0-2); Lymphocytes Absolute Manual 1.5 X10*3/uL (1.2-4.9); Lymphocytes Percent Manual 13 % (20-40); Metamyelocytes Absolute 0.1 X10*3/uL; Metamyelocytes Percent 1 %; Monocytes Absolute Manual 0.2 X10*3/uL (0.1-1.2); Monocytes Percent Manual 2 % (2-11); Myelocytes Absolute 0.1 X10*/uL; Myelocytes Percent 1 %; Neutrophils Absolute Manual 9.7 X10*3/uL (2.0-8.3); Neutrophils Percent Manual 75 % (45-73)
[2023-11-26 10:42] LABS: Ovalocytes 1+ (5-14) /OIF; RBC Morphology NOTED
[2023-11-26 10:43] LABS: Basophilic Stippling 1+ (0-2) /OIF; Toxic Granulation PRESENT
[2023-11-26 10:44] LABS: Hypochromasia 1+ (5-14) /OIF; Platelet Estimate NORMAL (NORMAL)
[2023-11-26 10:45] LABS: Platelet Morphology Comment NORMAL
[2023-11-26 10:47] LABS: Dohle Bodies PRESENT
[2023-11-26] MEDS: Famotidine/PF 20 MG/2 ML VIAL IVPUSH (11:22)
[2023-11-26] MEDS: diphenhydrAMINE HCL 50 MG/ML VIAL 25 MG IVPUSH (11:22)
[2023-11-26] MEDS: Acetaminophen 325 MG TABLET 650 MG PO (11:24)
[2023-11-26] MEDS: dexAMETHasone sod phosphate/NS 12 MG/50 ML PIGGYBACK 200 MG IV (11:26)
[2023-11-26] MEDS: Fosaprepitant Dimeglumine 150 MG in 0.9 % Sodium Chloride 145 ML 300 MG IV (12:30)
[2023-11-26] MEDS: Atezolizumab 1,200 MG in 0.9 % Sodium Chloride 250 ML 540 MG IV (13:18)
[2023-11-26] MEDS: HYDROmorphone HCl 2 MG TABLET PO (15:41)
--- NOTE | 2023-11-26 15:41 | MHC.HEMONC ---
I left voicemail on Celia's line at [facility] informing her of 11/02/23 appt for labs and ? transfusion.
[2023-11-27 08:28] VITALS: BP 150/72; PULSE 77; RESP 18; TEMP 36.8; O2SAT 97; BMI 29.1
[2023-11-27] MEDS: Acetaminophen 325 MG TABLET 650 MG PO (09:05)
[2023-11-27] MEDS: Ondansetron ODT 8 MG TAB.RAPDIS TRANSLINGU (09:05)
--- NOTE | 2023-11-27 11:30 | MHC.HEMONC ---
Here for C2 D2 Etoposide. Tolerated treatment well yesterday. PICC line flushes well. Premedicated with tylenol and zofran po as ordered. Treatment done and tolerated well. PICC flushed and capped. Pt to return for D3 in AM. Departed unit via wheelchair.
[2023-11-28 08:25] VITALS: BP 152/67; PULSE 60; RESP 18; TEMP 37.1; O2SAT 97; BMI 29.1
[2023-11-28] MEDS: Acetaminophen 325 MG TABLET 650 MG PO (08:35)
[2023-11-28] MEDS: Ondansetron ODT 8 MG TAB.RAPDIS TRANSLINGU (08:35)
--- NOTE | 2023-11-28 09:27 | MHC.HEMONC ---
Pt here for C2D3 Etoposide. (BRANDON approved for 4 cycles) Labs drawn 11/25/23 reviewed-okay to receive treatment today. Pt states she feels well today. PICC line unclamped and flushed with 0.9% NS patent with blood return noted. Pre medicated with tylenol and zofran. Etoposide given as ordered-tolerated well. PICC flushed with 0.9% NS, clamped and capped. Next appointment scheduled-pt to return tomorrow for Neulasta injection. Dsicharge packet given. Pt transported back to [facility] transportation ([phone])
[2023-11-29 14:02] VITALS: BP 155/61; PULSE 67; RESP 18; TEMP 36.6; O2SAT 100; BMI 29.1
--- NOTE | 2023-11-29 14:17 | MHC.HEMONC ---
neulasta given to left upper arm. Pt aware of next appt.
--- NOTE | 2023-11-29 15:13 | MHC.HEMONC ---
Anna continues with diarrhea. Left a message for Celia at [facility] ([phone]) and faxed ([phone]) more aggressive imodium instructions.
[2023-12-03] VITALS (9 sets, daily range): BP systolic 124–170; BP diastolic 57–74; PULSE 56–87; RESP 18; TEMP 35.7–37.1; O2SAT 97–98; BMI 29.1
[2023-12-03 08:51] LABS: Mean Corpuscular HGB Conc 32.5 g/dl (31.0-35.0); Mean Corpuscular Hemoglobin 28.8 pg (27.0-33.0); Mean Corpuscular Volume 88.8 fL (80.0-98.0); Mean Platelet Volume 10.1 fL (9.4-12.3); Platelet Count 82 X10*3/uL (160-400); Red Blood Count 2.15 X10*6/uL (4.20-5.50); Red Cell Distribution Width 15.9 % (11.0-16.0); White Blood Count 7.3 X10*3/uL (4.8-10.8)
[2023-12-03 08:53] LABS: Hematocrit 19.1 % (37.0-47.0); Hemoglobin 6.2 g/dl (12.0-16.0)
[2023-12-03 09:03] LABS: Alanine Aminotransferase 8 U/L (0-31); Albumin Level 2.8 g/dL (3.5-5.0); Alkaline Phosphatase 80 U/L (39-117); Anion Gap 9 (12-20); Aspartate Amino Transferase 9 U/L (5-31); Bilirubin Total 0.2 mg/dL (0.0-1.0); Blood Urea Nitrogen 36 mg/dL (9-16); Calcium 9.3 mg/dL (8.4-10.2); Carbon Dioxide 18 mmol/L (22-29); Chloride 117 mmol/L (96-108); Estimated Glomerular Filt Rate 26; Glucose Random 108 mg/dL (60-115); Potassium 4.5 mmol/L (3.3-5.1); Sodium 139 mmol/L (135-145); Total Protein 5.1 g/dL (6.5-8.0)
[2023-12-03] MEDS: Loperamide HCl 2 MG CAPSULE PO (09:13)
[2023-12-03 09:45] LABS: Band Neutrophils Percent 4 % (3-5); Basophils Abs Manual 0.1 X10*3/uL (0.0-0.2); Basophils Percent Manual 1 % (0-2); Dohle Bodies PRESENT; Eosinophils Absolute Manual 0.1 X10*3/uL (0.0-0.4); Eosinophils Percent Manual 1 % (0-4); Lymphocytes Absolute Manual 0.7 X10*3/uL (1.2-4.9); Lymphocytes Percent Manual 10 % (20-40); Metamyelocytes Absolute 0.1 X10*3/uL; Metamyelocytes Percent 1 %; Microcytosis 1+ (5-14) /OIF; Monocytes Absolute Manual 0.1 X10*3/uL (0.1-1.2); Monocytes Percent Manual 1 % (2-11); Neutrophils Absolute Manual 6.3 X10*3/uL (2.0-8.3); Neutrophils Percent Manual 82 % (45-73); RBC Morphology NOTED; Schistocytes 1+ (0-2) /OIF; Toxic Vacuolation PRESENT
[2023-12-03 09:46] LABS: Platelet Estimate DECREASED (NORMAL); Platelet Morphology Comment NORMAL
[2023-12-03 10:10] LABS: CDiff Gene PCR POSITIVE (Negative)
[2023-12-03 10:46] LABS: CDiff Toxin Positive (Negative)
[2023-12-03 10:47] LABS: CDIFF Internal ctrl Dots and bkg OK (V)
[2023-12-03] MEDS: LORazepam 0.5 MG TABLET PO (11:57)
[2023-12-03] MEDS: Acetaminophen 325 MG TABLET 650 MG PO (12:15)
[2023-12-03] MEDS: metroNIDAZOLE 500 MG TABLET PO (12:19)
[2023-12-03] MEDS: Albuterol Sulfate 2.5 MG, Albuterol/Iprat 2.5/0.5MG 3 ML 3 ML INHALE (12:59)
--- NOTE | 2023-12-03 13:14 | MHC.HEMONC ---
pt c/o diarrhea, stool sample obtained and taj care given. positive for cdiff. first dose po 500mg flagl given. pt recieved 2 units rbc for hgb 6.2. in between the units pt c/o having an anxiety attack 0.5mg ativan po given and updraft given of wheeze and c/o sob. [facility]dc called and report given.
[2023-12-17 08:12] VITALS: BP 148/74; PULSE 66; RESP 18; TEMP 36.3; O2SAT 100; BMI 28.5
[2023-12-17 08:51] LABS: Basophils Percent Auto 0.2 % (0-2); Eosinophils Percent Auto 0.4 % (0-4); Hematocrit 26.8 % (37.0-47.0); Imm Gran Abs Auto 0.15 X10*3/uL (0.00-0.03); Imm Gran Pct Auto 1.6 % (0.0-0.4); Lymphocytes Absolute Auto 2.4 X10*3/uL (1.2-4.9); Lymphocytes Percent Auto 25.6 % (20-40); Mean Corpuscular HGB Conc 32.1 g/dl (31.0-35.0); Mean Corpuscular Hemoglobin 28.4 pg (27.0-33.0); Mean Corpuscular Volume 88.4 fL (80.0-98.0); Monocytes Absolute Auto 0.8 X10*3/uL (0.1-1.2); Monocytes Percent Auto 8.3 % (2-11); Neutrophils Percent Auto 63.9 % (45-73); Platelet Count 147 X10*3/uL (160-400); Red Blood Count 3.03 X10*6/uL (4.20-5.50); Red Cell Distribution Width 18.6 % (11.0-16.0); White Blood Count 9.4 X10*3/uL (4.8-10.8)
[2023-12-17 08:52] LABS: Hemoglobin 8.6 g/dl (12.0-16.0)
[2023-12-17 08:57] LABS: Alanine Aminotransferase 8 U/L (0-31); Albumin Level 2.9 g/dL (3.5-5.0); Alkaline Phosphatase 69 U/L (39-117); Anion Gap 11 (12-20); Aspartate Amino Transferase 21 U/L (5-31); Bilirubin Total 0.2 mg/dL (0.0-1.0); Blood Urea Nitrogen 19 mg/dL (9-16); Calcium 9.6 mg/dL (8.4-10.2); Carbon Dioxide 19 mmol/L (22-29); Chloride 116 mmol/L (96-108); Creatinine Clr Calc Pharmacy 24.3; Estimated Glomerular Filt Rate 29; Glucose Random 97 mg/dL (60-115); Potassium 4.7 mmol/L (3.3-5.1); Sodium 141 mmol/L (135-145); Total Protein 5.6 g/dL (6.5-8.0)
[2023-12-17] MEDS: diphenhydrAMINE HCL 50 MG/ML VIAL 25 MG IVPUSH (09:59)
[2023-12-17] MEDS: Acetaminophen 325 MG TABLET 650 MG PO (10:03)
[2023-12-17] MEDS: Fosaprepitant Dimeglumine 150 MG in 0.9 % Sodium Chloride 145 ML 300 MG IV (10:04)
[2023-12-17] MEDS: dexAMETHasone sod phosphate/NS 12 MG/50 ML PIGGYBACK 200 MG IV (10:04)
[2023-12-17] MEDS: Famotidine/PF 20 MG/2 ML VIAL IVPUSH (10:48)
[2023-12-17] MEDS: Atezolizumab 1,200 MG in 0.9 % Sodium Chloride 250 ML 540 MG IV (12:01)
[2023-12-17] MEDS: HYDROmorphone HCl 2 MG TABLET PO ×2 (12:10→14:36)
--- NOTE | 2023-12-17 13:31 | MHC.HEMONCSW ---
This ticket writer met with Anna during her infusion treatment to check-in and assess needs. Patient was calm and pleasant with full affect. She reported that she was feeling okay, and was glad to be seated next to another patient who she enjoys talking with. Patient reported she was happy to get a head wrap, and not have to wear a baseball cap all the time. Patient is all set with rides, and did not identify any other needs at this time.
--- NOTE | 2023-12-17 15:58 | MHC.HEMONC ---
Here for C3 D1 Atezolizumab/Carbo/Etoposide. Feels well. States she has some diarrhea still, but less. None today. Has PICC line. Flushed with good blood return noted. Premeds given as ordered. Treatment done and tolerated well. Pt also given dilaudid 2mg x2 while here for c/o pain. Will return 12/17 for C3 D2. Departure packet given. Departed via wheelchair.
[2023-12-18 08:42] VITALS: BP 133/75; PULSE 74; RESP 20; TEMP 36.5; O2SAT 97; BMI 28.5
[2023-12-18] MEDS: Acetaminophen 325 MG TABLET 650 MG PO (09:27)
[2023-12-18] MEDS: Ondansetron ODT 8 MG TAB.RAPDIS TRANSLINGU (09:29)
--- NOTE | 2023-12-18 17:44 | MHC.HEMONC ---
Pt was in today for C3D2 Etoposide, pt's VSS, reports no new symptoms, nurse flushed pt's RUE double-PICC w/ NS, found positive blood return, no labs ordered, pt was admin PO tylenol and PO zofran as pre-meds. IV etoposide was infused over 1 hr, which pt tolerated well. Pt's IV was flushed, clamped, and capped, pt was given d/c packet, pt to return tomorrow for C3D3, [facility]
[2023-12-19] MEDS: Acetaminophen 325 MG TABLET 650 MG PO (08:39)
[2023-12-19] MEDS: Ondansetron ODT 8 MG TAB.RAPDIS TRANSLINGU (08:40)
[2023-12-19 08:50] VITALS: BP 142/83; PULSE 68; RESP 16; TEMP 36.6; O2SAT 96
--- NOTE | 2023-12-19 12:05 | MHC.HEMONC ---
C3D3 Etoposide. Patient denies side effects. PICC to right AC- flushed with positive blood return. Pre-medicated with Tylenol 650mg PO and Zofran 8mg PO. Chemo infused and well tolerated. IV was flushed, clamped, and capped. Patient to return tomorrow for Neulasta injection. [facility] model[facility]
--- NOTE | 2023-12-20 13:30 | MHC.HEMONC ---
Neulasta 6mg sc given left arm and tolerated well. Pt aware of next treatment. Departed via wheelchair.
[2024-01-07 08:11] VITALS: BP 138/63; PULSE 71; RESP 18; TEMP 36.4; O2SAT 100; BMI 28.1
[2024-01-07 08:55] LABS: Basophils Percent Auto 0.3 % (0-2); Imm Gran Abs Auto 0.02 X10*3/uL (0.00-0.03); Imm Gran Pct Auto 0.6 % (0.0-0.4); Lymphocytes Absolute Auto 1.3 X10*3/uL (1.2-4.9); MANUAL DIFF FLAG SCAN; PLT CLUMP 1; SCAN SMEAR FLAG 1
[2024-01-07 08:57] LABS: Eosinophils Percent Auto 0.6 % (0-4); Mean Corpuscular HGB Conc 30.9 g/dl (31.0-35.0); Mean Corpuscular Hemoglobin 29.7 pg (27.0-33.0); Mean Corpuscular Volume 95.9 fL (80.0-98.0); Mean Platelet Volume 10.1 fL (9.4-12.3); Monocytes Absolute Auto 0.4 X10*3/uL (0.1-1.2); Monocytes Percent Auto 11.1 % (2-11); Neutrophils Absolute Auto 1.6 x10*3/uL (2.0-8.3); Neutrophils Percent Auto 49.4 % (45-73); Red Blood Count 1.72 X10*6/uL (4.20-5.50); Red Cell Distribution Width 22.9 % (11.0-16.0)
[2024-01-07 09:02] LABS: White Blood Count 3.3 X10*3/uL (4.8-10.8)
[2024-01-07 09:03] LABS: Hematocrit 16.5 % (37.0-47.0); Hemoglobin 5.1 g/dl (12.0-16.0); Platelet Count 72 X10*3/uL (160-400)
[2024-01-07 09:14] LABS: SLIDE REVIEW VERIFIED
--- NOTE | 2024-01-07 09:16 | PM.HEMONCPN ---
Medical Summary - Medical Summary Date of Service: 01/07/24 Chief complaint: Follow-up for: Small cell carcinoma of the lung. Primary Care Provider: Eleazar Le III, MD Medical Summary: DIAGNOSIS: EXTENSIVE STAGE SMALL-CELL CARCINOMA OF THE LUNG. CURRENT THERAPY: STATUS POST 1 CYCLE OF CARBO AND ETOPOSIDE AN INPATIENT AT [facility] END OF SEPTEMBER. CYCLE 2 RECEIVED ON 11/04, with atezolizumab. HERE FOR CYCLE 4. Interval History Interval history: Anna Crawford is a 73 year old lady, here for a follow-up visit, and for chemotherapy. Lately she has felt more tired than usual. Hemoglobin: 5.1. She received 1 unit of blood today. No fever chills or night sweats. No headache, some dizziness. She does get chest pain and trouble breathing. She does cough up yellow sputum. She denies abdominal pain nausea vomiting heartburn indigestion. Bowels sometimes gets constipated. No gross blood in the stools. Appetite is good. She is trying to eat. She has lost weight. No dysuria or hematuria. No joint pain or muscle pain. She denies any focal weakness. She does have a history of depression. She is on medications. No skin rashes but has dry skin. INTERIM HISTORY:: Patient received her 2nd cycle of carbo etoposide and atezolizumab on 11/04. She was subsequently admitted on 11/13 till 11/14. Discharge summary: 72-year-old female with a PMH significant for small cell lung cancer, chronic chest pain on chronic hydromorphone, breast cancer s/p partial mastectomy and radiation, HTN, CKD 4, and IBS/chronic diarrhea who presents to the ED from SNF after routine labs found significant pancytopenia. Patient admitted to medical floor with a diagnosis of pancytopenia with CBC showing WBCs 0.8, H&H 5.7/17.7, neutrophils 6, Absolute neutrophil count: 80 cells/microliter likely secondary to chemotherapy for small-cell lung cancer on carboplatin, etoposide, and atezolizumab with last infusion 11/04, patient denied bleeding, no fevers, no cough or abdominal pain received 2 units of packed RBC hematocrit improved to 24.9, hemoglobin 8.3 for neutropenia received 2 dosages of Granix, since patient is hemodynamically stable and asymptomatic, other than chronic anterior chest wall pain, therefore being discharged back to rehab facility recommend to continue neutropenic precautions and monitor CBC, patient admitted to chronic diarrhea with no recent change, no worsening abdominal pain, no nausea or vomiting. In regard to hypertension recommend to continue home medications Coreg and hydralazine, noted to have no acute COPD exacerbation, and is continued on loperamide for her chronic diarrhea. She has been feeling better. She walks with the help of a walker. PRESENTING HISTORY: She was referred by Dr. Eleazar Le, on account of recent diagnosis of small-cell carcinoma of the lung. She was originally admitted to [facility] in August. She was discharged on 08/27 due to insurance issues, she was not able to follow-up with [facility]. She was referred to [facility] but could not make it to the appointment. On 09/17 she presented to [facility] ED with worsening shortness of breath. She also complained of severe left-sided chest pain. She had chronic diarrhea. Chest x-ray showed increased opacification of the left chest consistent with major consolidation of the left upper lobe with left pleural effusion. She had chest tube placed. She was placed on BiPAP given respiratory distress. She was admitted to [facility] 09/18/[address] with shortness of [address]. CT scan revealed: No evidence of PE. New small right apical pneumothorax. Slightly improved aeration the left upper lobe with persistent masslike opacity and surrounding patchy and ground-glass opacities, consistent with known carcinoma. Narrowing of the left upper lobe bronchus and segmental airways likely due to encasement by the mask. Near resolution of the left pleural effusion status post left pleural drainage catheter. Increasing mediastinal and bilateral supraclavicular adenopathy concerning for progression of disease. Pleural fluid cytology was positive for small-cell carcinoma. She underwent chemotherapy with Carbo and etoposide while inpatient in mid September. PAST MEDICAL HISTORY: 1. HYPERTENSION. 2. DIABETES. 3. CKD. 4. ASTHMA. 5. HCV. 6. HISTORY OF RIGHT BREAST CANCER STATUS POST PARTIAL MASTECTOMY IN 2016. STATUS POST XRT COMPLETED [place] [address] Apple.. 7. Previous history of squamous cell carcinoma of the right lung. 8. Had COVID infection end of August. FAMILY HISTORY: Noncontributory. SOCIAL HISTORY: She did different or jobs. 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 She is not . She has 1 son. She smoked a pack-a-day starting age 18. She quit 2 years ago. She used to drink when she went out with her friends. Review of Systems - Constitutional Reports system reviewed and no additional complaints, except as documented, Reports fatigue, Reports lack of energy, Reports malaise, Denies fever(s), Denies poor appetite, Denies weight loss - Eyes Reports system reviewed and no additional complaints, except as documented - ENT Reports system reviewed and no additional complaints, except as documented - Cardiovascular Reports system reviewed and no additional complaints, except as documented - Respiratory Reports no additional respiratory complaints - Gastrointestinal Reports system reviewed and no additional complaints, except as documented - Genitourinary Reports no additional female genitourinary complaints - Musculoskeletal Reports system reviewed and no additional complaints, except as documented - Integumentary/Breasts Skin/Breast: Reports no additional skin complaints - Neurologic Reports system reviewed and no additional complaints, except as documented - Psychiatric Reports system reviewed and no additional complaints, except as documented - Endocrine Reports no additional endocrine complaints - Hematologic/Lymphatic Reports system reviewed and no additional complaints, except as documented - Allergic/Immunologic Reports system reviewed and no additional complaints, except as documented PMFSH Medical History: Medical History (This Medical Record has been edited. Action required.) Breast cancer Chronic diarrhea CKD (chronic kidney disease) HBP (high blood pressure) HTN (hypertension) Functional capacity: uses cane/walker Patient : No Social History: Social History (This Medical Record has been edited. Action required.) Living Situation History: Household Members: Spouse Household Members: None Housing: Custodial Do you presently have visiting nurse or other home services: No Alcohol History Details: 1. How often do you have a drink containing alcohol?: a. Never Tobacco History: Patient Tobacco Use Status: Former Tobacco user Tobacco use type: Cigarette e-Cigarette/Vaping Use: Never Used Second Hand Smoke Exposure: No Substance Use History: Use of substances other than those prescribed or required for medical reasons: No Domestic Abuse History: Have you been hit, kicked, punched, or otherwise hurt by someone within the past year? If so, by whom?: No Do you feel safe in your current relationship?: Yes Homicidal Assessment: Do you have thoughts of harming others: None Do you have a plan to hurt others: No Plan Nutrition Assessment: Patient : No Occupation Assessmet: service: No Current occupational status: retired Current occupational status: disabled Oncology Screenings - ECOG Performance Status ECOG Performance Status: 1 Home Medications and Allergies Current Medications: Current Medications Acetaminophen (Acetaminophen 325 Mg Tablet) 650 mg PO ONCE SADE Stop: 01/07/24 23:59 Heparin Sodium (Porcine) (Heparin Sodium,Porcine Flush 500 Unit/5 Ml Syringe) 500 unit IVFLUSH ONCE SADE Stop: 01/07/24 23:59 Fosaprepitant 150 mg/ Sodium (Chloride) 150 mls @ 300 mls/hr IV ONCE SADE Stop: 01/07/24 23:59 Dexamethasone Sodium Phosphate (Decadron) 12 mg in 50 mls @ 200 mls/hr IV ONCE SADE Stop: 01/07/24 23:59 Home Medications ?Medication ?Instructions ?Recorded ?Confirmed ?Type aspirin 81 mg capsule 81 mg PO DAILY 10/24/23 10/24/23 History acetaminophen 325 mg tablet 650 mg PO Q8H PRN Pain 11/14/23 11/28/23 History aspirin 81 mg tablet,delayed 81 mg PO DAILY 11/14/23 11/14/23 History release bisacodyl 10 mg rectal suppository 10 mg NE DAILY PRN Constipation 11/14/23 11/28/23 History carvedilol 12.5 mg tablet 12.5 mg PO BID 11/14/23 11/28/23 History folic acid 1 mg tablet 1 mg PO DAILY 11/14/23 11/28/23 History hydralazine 100 mg tablet 100 mg PO BID 11/14/23 11/28/23 History hydromorphone 2 mg tablet 1 mg PO Q4H PRN Pain, Moderate 11/14/23 11/28/23 History hydromorphone 2 mg tablet 2 mg PO Q4H PRN Pain, Severe 11/14/23 11/28/23 History ipratropium 0.5 mg-albuterol 3 mg 3 ml inhalation Q4H PRN Shortness 11/14/23 11/28/23 History (2.5 mg base)/3 mL nebulization Of Breath soln ipratropium 0.5 mg-albuterol 3 mg 3 ml inhalation QID 11/14/23 11/14/23 History (2.5 mg base)/3 mL nebulization soln loperamide 2 mg capsule 2 mg PO Q3H PRN Loose Stool 11/14/23 11/28/23 History magnesium hydroxide 400 mg/5 mL 30 ml PO DAILY PRN Constipation 11/14/23 11/28/23 History oral suspension (Milk of Magnesia) ondansetron HCl 8 mg tablet 8 mg PO Q8H PRN Nausea And Vomiting 11/14/23 11/28/23 History polyethylene glycol 3350 17 17 g PO DAILY 11/14/23 11/28/23 History gram/dose oral powder (Miralax) sennosides 8.6 mg tablet (senna) 17.2 mg PO BEDTIME 11/14/23 11/28/23 History sodium phosphates 19 gram-7 118 ml NE DAILY PRN Constipation 11/14/23 11/28/23 History gram/118 mL enema (Fleet Enema) thiamine HCl (vitamin B1) 100 mg 100 mg PO DAILY 11/14/23 11/28/23 History tablet trazodone 100 mg tablet 100 mg PO BEDTIME 11/14/23 11/28/23 History trazodone 50 mg tablet 50 mg PO BEDTIME 11/14/23 11/28/23 History Allergies Allergy/AdvReac Type Severity Reaction Status Date / Time carisoprodol [From [facility]] Allergy Hives Verified 12/06/23 10:05 codeine Allergy Itching Verified 12/06/23 10:05 Exam Vital signs: Vital Signs Temp 97.6 F 01/07/24 08:11 Pulse 71 01/07/24 08:11 Resp 18 01/07/24 08:11 BP 138/63 01/07/24 08:11 Pulse Ox 100 01/07/24 08:11 O2 Del Method Nasal Cannula 01/07/24 08:11 O2 Flow Rate 2 01/07/24 08:11 Intake & Output 01/06/24 01/07/24 01/07/24 18:59 06:59 18:59 Other: Weight 65.2 kg Weight in Grams [id number] Weight 65.2 kg BMI result Body Mass Index 28.1 - Constitutional Present: no acute distress - Routine HEENT Exam Head: Present: normal inspection Eye: Present: normal appearance ENT: Present: mucous membranes moist - Routine Neck Exam Present: full ROM - Routine Respiratory Exam Present: CTAB - Routine Cardiovascular Exam Cardiovascular: Present: RRR, S1, S2 - Routine Abdominal Exam Present: soft, nontender - Routine Rectal Exam Patient deferred: digital exam - Routine Extremities Exam Present: nontender - Routine Back/Spine/Pelvis Exam Back/Spine: Present: full ROM - Routine Skin Exam Present: intact - Routine Neurological Exam Present: alert, oriented X3 - Routine Psychiatric Exam Present: normal affect Data - Labs CBC & Chem 7: 01/07/24 08:45 01/07/24 08:45 Assessment and Plan Patient Active problem list reviewed?: Yes (1) Small cell lung cancer in adult Status: Acute Assessment and plan: This is a pleasant 72-year-old, with recent diagnosis of small-cell carcinoma of the lung, extensive stage disease. Patient previously has had: 1. Breast cancer. 2. Squamous cell carcinoma of the lung. 3. HCC. On 09/17 she presented to [facility] ED with worsening shortness of breath. She also complained of severe left-sided chest pain. She had chronic diarrhea. Chest x-ray showed increased opacification of the left chest consistent with major consolidation of the left upper lobe with left pleural effusion. She had chest tube placed. She was placed on BiPAP given respiratory distress. She was admitted to [facility] 09/18/2023 with shortness of [address]. CT scan revealed: No evidence of PE. New small right apical pneumothorax. Slightly improved aeration the left upper lobe with persistent masslike opacity and surrounding patchy and ground-glass opacities, consistent with known carcinoma. Narrowing of the left upper lobe bronchus and segmental airways likely due to encasement by the mask. Near resolution of the left pleural effusion status post left pleural drainage catheter. Increasing mediastinal and bilateral supraclavicular adenopathy concerning for progression of disease. Pleural fluid cytology was positive for small-cell carcinoma. She underwent chemotherapy with Carbo and etoposide while inpatient in mid September. Between 09/19 and 09/21. She was then referred here for insurance reasons. I offered continuing her treatment here. She and her son were willing. She received cycle 2 with atezolizumab on 11/04. She ended up in the hospital on 11/13 with pancytopenia and neutropenic sepsis. She is here for cycle 4. She feels, somewhat tired today. She is pancytopenic. CBC: WBC 3.3, HGB 5.1, HCT 72. PLAN: She received 1 unit of packed RBC. She will receive 1 more unit tomorrow. She received the day 1 of chemotherapy with Carbo/Etoposide and atezolizumab. (l decreased the chemotherapy doses to 75%.) She will return for day 2 and day 3 tomorrow and day after. Meanwhile l referred her for pulmonary evaluation for her advanced COPD. She will be re-staged after completion of this cycle. All her and her son's questions were answered to their satisfaction. Thank you, CC: Dr. David Le. - Time Spent With Patient Time Spent with Patient (in minutes): 30
[2024-01-07 09:53] LABS: Alanine Aminotransferase < 6 U/L (0-31); Albumin Level 2.7 g/dL (3.5-5.0); Alkaline Phosphatase 62 U/L (39-117); Anion Gap 10 (12-20); Aspartate Amino Transferase 18 U/L (5-31); Bilirubin Total 0.3 mg/dL (0.0-1.0); Blood Urea Nitrogen 23 mg/dL (9-16); Calcium 8.7 mg/dL (8.4-10.2); Carbon Dioxide 20 mmol/L (22-29); Chloride 115 mmol/L (96-108); Creatinine Clr Calc Pharmacy 22.1; Estimated Glomerular Filt Rate 27; Glucose Random 109 mg/dL (60-115); Potassium 3.8 mmol/L (3.3-5.1); Sodium 141 mmol/L (135-145); Total Protein 5.2 g/dL (6.5-8.0)
[2024-01-07 10:07] LABS: Iron 92 mcg/dL (30-160); Lactate Dehydrogenase 139 U/L (122-220); Percent Iron Saturation 67 % (15-50); Total Iron Binding Capacity 138 mcg/dL (228-428); Unsaturated Iron Binding 46 ug/dL
[2024-01-07 10:21] LABS: Ferritin 682 ng/mL (10-250)
[2024-01-07 10:42] VITALS: BP 138/63; PULSE 71; RESP 18; TEMP 36.4
[2024-01-07 10:49] LABS: Vitamin B12 > 2000 pg/mL (200-900)
[2024-01-07 11:00] VITALS: BP 128/59; PULSE 60; RESP 18; TEMP 36.1
[2024-01-07 12:17] LABS: Folate 15.4 ng/mL (> or = 4.0)
[2024-01-07] MEDS: oxyCODONE HCl Immed Release 5 MG TABLET 10 MG PO (12:17)
[2024-01-07 12:39] VITALS: BP 123/60; PULSE 62; RESP 17; TEMP 36.1
[2024-01-07] MEDS: diphenhydrAMINE HCL 25 MG CAPSULE PO (12:54)
[2024-01-07] MEDS: Famotidine 20 MG TABLET PO (12:55)
[2024-01-07] MEDS: Fosaprepitant Dimeglumine 150 MG in 0.9 % Sodium Chloride 145 ML 300 MG IV (12:55)
[2024-01-07] MEDS: Acetaminophen 325 MG TABLET 650 MG PO (12:55)
[2024-01-07] MEDS: dexAMETHasone sod phosphate/NS 12 MG/50 ML PIGGYBACK 200 MG IV (12:55)
[2024-01-07] MEDS: Atezolizumab 1,200 MG in 0.9 % Sodium Chloride 250 ML 540 MG IV (13:55)
--- NOTE | 2024-01-07 17:19 | MHC.HEMONC ---
Pt was in today for C4D1 Atezolizomide/Carbo/Etoposide, nurse confirmed PA, pt's VSS, reports no new symptoms, nurse flushed pt's RUE double-PICC w/ NS, found positive blood return, labs collected/reviewed, unfortunately pt's Hgb resulted at 5.1, Dr. Jesus was informed, ordered pt to receive x2 units PRBC today, type+screen collected, asked to move chemo tx plan out 1 day into the future, but [facility] that [facility] was unavailable for the following day for any time earlier than 13:40 arrival time, which was pt's originally scheduled arrival time for Day 2 of cycle. This would not leave enough time to receive all of pt's tx meds for Day 1 of tx, so Dr. Jesus spoke w/ chemopharmacist Mary and provider ordered pt to receive x1 unit PRBC today and Day 1 of chemo, then she will receive 2nd unit PRBC either on Day 2 or Day 3 when she comes for Etoposide only. [facility], they were able to secure transport for Thur, Day 3, for 9am, so pt will be able to recieve 2nd unit of PRBC that day before receiving Day 3 Etoposide in the afternoon. Blood Bank banded pt, pt and provider signed consent to transfuse, pt was transfused x1 unit PRBC, well-tolerated. Pt c/o 9/10 cancer-related sternum pain, nurse admin x1 dose of oxycodone 10 mg PO w/ minimal effect. Then, nurse admin pre-meds: PO tylenol, PO zofran, PO pepcid, PO benadryl, IV Emend, and IV Dexamehtasone. IV AUSTIN was infused, which pt tolerated well. Unfortunately, pt's transportation from [facility] arrived at 14:00 and pt had not completed tx, they said they could not drive pt back to rehab after tx, nurse called [facility], who were able to secure transport from other vendor to bring pt home. Pt's PICC was flushed, clamped, and capped, pt was given d/c packet, pt to return tomorrow for C4D2, was picked up by public transportation inspector to return to [facility]. Pt also met briefly w/ Dr. Jesus, who ordered f/u CT scan in 2 weeks.
[2024-01-08] MEDS: Ondansetron ODT 8 MG TAB.RAPDIS TRANSLINGU (13:45)
[2024-01-08] MEDS: Acetaminophen 325 MG TABLET 650 MG PO (13:45)
[2024-01-08 14:51] VITALS: BP 157/70; PULSE 65; RESP 18; TEMP 36.7
--- NOTE | 2024-01-08 17:38 | MHC.HEMONC ---
Pt was in today for C4D2 Etoposide, pt's VSS, reports still feeling very fatigued, nurse replied that this is to be expected, since pt received only x1 unit PRBC the previous day and will be receiving the 2nd unit tomorrow, due [facility]. Nurse changed the dsg of pt's double-PICC in sterile procedure, as it was dated 12/23/23 and should be changed weekly, as well as changing out the claves, flushed w/ NS, found positive blood return, no labs ordered today. Pt was admin pre-meds: PO tylenol and PO zofran, IV etoposide was infused over 1 hr, though was paused briefly, when pt c/o feeling shaky w/ HAs. Pt's VS were unchanged, fluids opened to gravity, pt reported feeling no bettern when tx was held, Dr. Jesus prdered tx resumed 10 minutes later, which pt tolerated well. Pt's IV was flushed, clamped, and capped, pt was given d/c packet, pt to return tomorrow for C4D3, was picked up by transport assistant to return to [facility]. Nurse also booked pt's mext tx to start Maintenance portion of tx in 3 weeks, which will be just Atezo [id number], but this nurse to have Dr. Jesus sign order for blood draw at [facility] the following week.
[2024-01-09] VITALS (7 sets, daily range): BP systolic 126–169; BP diastolic 57–77; PULSE 56–63; RESP 18; TEMP 36–36.6; O2SAT 100; BMI 28.1
[2024-01-09 09:35] LABS: MANUAL DIFF FLAG NO
[2024-01-09 09:36] LABS: Basophils Percent Auto 0.3 % (0-2); Imm Gran Abs Auto 0.02 X10*3/uL (0.00-0.03); Imm Gran Pct Auto 0.6 % (0.0-0.4); Immature Retic Fraction 17.4 % (3.0-15.9); Lymphocytes Absolute Auto 1.1 X10*3/uL (1.2-4.9); Lymphocytes Percent Auto 29.7 % (20-40); Mean Corpuscular HGB Conc 30.5 g/dl (31.0-35.0); Mean Corpuscular Hemoglobin 28.6 pg (27.0-33.0); Mean Corpuscular Volume 93.5 fL (80.0-98.0); Mean Platelet Volume 10.1 fL (9.4-12.3); Monocytes Absolute Auto 0.3 X10*3/uL (0.1-1.2); Monocytes Percent Auto 7.2 % (2-11); Neutrophils Absolute Auto 2.2 x10*3/uL (2.0-8.3); Neutrophils Percent Auto 62.2 % (45-73); Red Blood Count 2.17 X10*6/uL (4.20-5.50); Red Cell Distribution Width 23.2 % (11.0-16.0); Retic HGB Equivalent 29.5 pg (30.0-35.0); Reticulocyte Percent 3.3 % (0.5-1.8); Reticulocytes Absolute 0.072 X10*6/uL (0.026-0.095); White Blood Count 3.6 X10*3/uL (4.8-10.8)
[2024-01-09 09:39] LABS: Hemoglobin 6.2 g/dl (12.0-16.0)
[2024-01-09 09:40] LABS: Hematocrit 20.3 % (37.0-47.0); Platelet Count 81 X10*3/uL (160-400)
[2024-01-09 09:51] LABS: Alanine Aminotransferase < 6 U/L (0-31); Albumin Level 2.7 g/dL (3.5-5.0); Alkaline Phosphatase 54 U/L (39-117); Anion Gap 9 (12-20); Aspartate Amino Transferase 17 U/L (5-31); Bilirubin Total 0.3 mg/dL (0.0-1.0); Blood Urea Nitrogen 29 mg/dL (9-16); Calcium 8.9 mg/dL (8.4-10.2); Carbon Dioxide 17 mmol/L (22-29); Chloride 117 mmol/L (96-108); Creatinine Clr Calc Pharmacy 25.2; Estimated Glomerular Filt Rate 31; Glucose Random 96 mg/dL (60-115); Potassium 4.2 mmol/L (3.3-5.1); Sodium 139 mmol/L (135-145)
[2024-01-09] MEDS: Acetaminophen 325 MG TABLET 650 MG PO (13:43)
[2024-01-09] MEDS: Ondansetron ODT 8 MG TAB.RAPDIS TRANSLINGU (13:43)
[2024-01-09] MEDS: oxyCODONE HCl Immed Release 5 MG TABLET 10 MG PO (14:10)
--- NOTE | 2024-01-09 14:50 | MHC.HEMONC ---
Pt here for C4D3 Etoposide and 2 units RBC's . Pt states she feels fatigued. Consent for blood transfusion obtained. PICC site unclamped and flushed with 0.9% NS-patent with blood return noted. Repeat labs drawn from PICC- H & H 6.2/20.3 today. Vital signs as noted. Vital signs as noted. 2 units RBC's transfused as ordered at 200ml hour per Dr Jesus verbal order-tolerated well. Vital signs as noted on TAR. Oxycodone 10mg given for 8 chronic back and chest discomfort with relief per pt. Pre medicated with tylenol, zofran. Etoposide given as ordered-tolerated well. PICC line flushed with 0.9% NS-clamped and capped. Pt to return tomorrow for Neulasta injection. Discharge packet given. Assisted to w/c-discharge to front of hospital.
[2024-01-10 15:15] VITALS: BP 168/82; PULSE 62; RESP 16; O2SAT 100
--- NOTE | 2024-01-10 15:18 | MHC.HEMONC ---
Neulasta 6mg s/c administered to left upper arm and well tolerated. Patient aware of next appt. Patient departed unit via own wheelchair accompanied by [facility].
--- NOTE | 2024-01-10 17:13 | MHC.HEMONC ---
This nurse faxed signed order from Dr. Jesus, to have pt's blood drawn at [facility] for CBC/diff and CMP, to be drawn once next , 01/16/28, and to fax results back to this clinic. Nurse faxed order to [phone], received confirmation. Later in the day, pt confirmed that nurse had received it.
--- NOTE | 2024-01-16 15:31 | MHC.HEMONC ---
Nurse took triage call from Halle nurse at [facility], reporting pt's blood was drawn today, as ordered by Dr. Jesus. Unfortunately, pt had Critical low WBC of 1.3, critical low Hgb of 6.4, and critical low Plt of 11 [address] from blood draw. Dr. Jesus was updated, said pt should come to this clinic tomorrow morning for blood and platelet transfusion, but when nurse advised Halle at [facility], she replied that they are unable to secure transport w/ only 1 day's notice and this clinic is closed on Saturday/Saturday. Thus, Dr. Jesus advised pt should be taken to ER to be transfused. Halle agreed w/ this plan, pt to be transferred to [facility].
[2024-01-28 10:13] VITALS: BP 170/72; PULSE 67; RESP 18; TEMP 36.6; O2SAT 99; BMI 27.7
[2024-01-28 10:38] LABS: MANUAL DIFF FLAG NO
[2024-01-28 10:44] LABS: Basophils Percent Auto 0.4 % (0-2); Eosinophils Percent Auto 0.1 % (0-4); Hematocrit 28.5 % (37.0-47.0); Hemoglobin 9.4 g/dl (12.0-16.0); Imm Gran Abs Auto 0.19 X10*3/uL (0.00-0.03); Imm Gran Pct Auto 2.2 % (0.0-0.4); Lymphocytes Absolute Auto 1.6 X10*3/uL (1.2-4.9); Lymphocytes Percent Auto 19.3 % (20-40); Mean Corpuscular Hemoglobin 29.3 pg (27.0-33.0); Mean Corpuscular Volume 88.8 fL (80.0-98.0); Mean Platelet Volume 10.4 fL (9.4-12.3); Monocytes Absolute Auto 0.9 X10*3/uL (0.1-1.2); Neutrophils Absolute Auto 5.8 x10*3/uL (2.0-8.3); Red Blood Count 3.21 X10*6/uL (4.20-5.50); Red Cell Distribution Width 16.9 % (11.0-16.0); White Blood Count 8.5 X10*3/uL (4.8-10.8)
[2024-01-28 10:46] LABS: Platelet Count 84 X10*3/uL (160-400)
[2024-01-28 10:57] LABS: Alanine Aminotransferase 8 U/L (0-31); Albumin Level 2.9 g/dL (3.5-5.0); Alkaline Phosphatase 91 U/L (39-117); Anion Gap 11 (12-20); Aspartate Amino Transferase 24 U/L (5-31); Bilirubin Total 0.4 mg/dL (0.0-1.0); Blood Urea Nitrogen 17 mg/dL (9-16); Calcium 9.1 mg/dL (8.4-10.2); Carbon Dioxide 26 mmol/L (22-29); Chloride 109 mmol/L (96-108); Creatinine Clr Calc Pharmacy 25.2; Estimated Glomerular Filt Rate 31; Glucose Random 119 mg/dL (60-115); Potassium 4.8 mmol/L (3.3-5.1); Sodium 141 mmol/L (135-145); Total Protein 5.5 g/dL (6.5-8.0)
[2024-01-28] MEDS: Acetaminophen 325 MG TABLET 650 MG PO (11:15)
[2024-01-28] MEDS: Ondansetron ODT 8 MG TAB.RAPDIS TRANSLINGU (11:16)
[2024-01-28] MEDS: diphenhydrAMINE HCL 50 MG/ML VIAL 25 MG IVPUSH (11:16)
[2024-01-28] MEDS: Atezolizumab 1,200 MG in 0.9 % Sodium Chloride 250 ML 540 MG IV (12:07)
[2024-01-28] MEDS: oxyCODONE HCl Immed Release 5 MG TABLET 10 MG PO (15:19)
--- NOTE | 2024-01-28 17:11 | MHC.HEMONC ---
Pt was in today for C5D1 Atezolizumab (on Q14D maintenance schedule), pt's VSS, reports no new symptoms, fatigued, nurse flushed pt's [facility] double-PICC w/ NS, found positive blood return, collected ordered blood specimens, as well as type + screen, thankfully, pt did not require any blood or platelet transfusion today, pt was admin pre-meds: PO tylenol, PO zofran, IV benadryl, then IV atezo was infused over 30 minutes, which pt tolerated well. Nurse Viviane changed pt's [facility] PICC dsg, which was dated as last being changed 2 weeks ago by this nurse, when pt was last in clinic. Nurse admin pt 10 mg PO oxycodone x1 as pt c/o 8/10 L rib pain, and transport did not arrive for over 2 hrs past end of her tx, had moderate effect. Pt's IV was flushed, clamped, and capped, pt was given d/c packet, pt to return in 2 weeks, was picked up by [employer] transportation superintendent to return to [facility]. DEV Pereyra also requested assistance to get pt scheduled for CT scan, [facility], connected to speak w/ centralized scheduling, who had been unable to reach pt on her cell. Pt received text notification that she has CT scan booked on 01/30, [facility], who [facility].
[2024-02-11] VITALS (8 sets, daily range): BP systolic 130–148; BP diastolic 59–115; PULSE 61–72; RESP 17–18; TEMP 35.8–36.7; O2SAT 97; BMI 27.6
[2024-02-11 09:44] LABS: MANUAL DIFF FLAG NO
[2024-02-11 09:46] LABS: Basophils Percent Auto 0.1 % (0-2); Eosinophils Absolute Auto 0.1 X10*3/uL (0.0-0.4); Eosinophils Percent Auto 0.8 % (0-4); Hematocrit 22.5 % (37.0-47.0); Hemoglobin 7.4 g/dl (12.0-16.0); Imm Gran Abs Auto 0.03 X10*3/uL (0.00-0.03); Imm Gran Pct Auto 0.4 % (0.0-0.4); Lymphocytes Absolute Auto 1.6 X10*3/uL (1.2-4.9); Lymphocytes Percent Auto 22.3 % (20-40); Mean Corpuscular HGB Conc 32.9 g/dl (31.0-35.0); Mean Corpuscular Hemoglobin 30.3 pg (27.0-33.0); Mean Corpuscular Volume 92.2 fL (80.0-98.0); Monocytes Absolute Auto 0.8 X10*3/uL (0.1-1.2); Monocytes Percent Auto 10.3 % (2-11); Neutrophils Absolute Auto 4.8 x10*3/uL (2.0-8.3); Neutrophils Percent Auto 66.1 % (45-73); Platelet Count 103 X10*3/uL (160-400); Red Blood Count 2.44 X10*6/uL (4.20-5.50); Red Cell Distribution Width 19.7 % (11.0-16.0); White Blood Count 7.3 X10*3/uL (4.8-10.8)
[2024-02-11 10:02] LABS: Alanine Aminotransferase < 6 U/L (0-31); Albumin Level 2.8 g/dL (3.5-5.0); Alkaline Phosphatase 78 U/L (39-117); Anion Gap 8 (12-20); Aspartate Amino Transferase 24 U/L (5-31); Bilirubin Total 0.3 mg/dL (0.0-1.0); Blood Urea Nitrogen 29 mg/dL (9-16); Calcium 9.3 mg/dL (8.4-10.2); Carbon Dioxide 26 mmol/L (22-29); Chloride 108 mmol/L (96-108); Creatinine Clr Calc Pharmacy 18.3; Estimated Glomerular Filt Rate 22; Glucose Random 103 mg/dL (60-115); Potassium 4.4 mmol/L (3.3-5.1); Sodium 138 mmol/L (135-145); Total Protein 5.8 g/dL (6.5-8.0)
--- NOTE | 2024-02-11 11:08 | PM.HEMONCPN ---
Medical Summary - Medical Summary Date of Service: 02/11/24 Chief complaint: Follow-up for: Small-cell lung carcinoma. Primary Care Provider: Eleazar Le III, MD Medical Summary: DIAGNOSIS: EXTENSIVE STAGE SMALL-CELL CARCINOMA OF THE LUNG. CURRENT THERAPY: STATUS POST 1 CYCLE OF CARBO AND ETOPOSIDE AN INPATIENT AT [facility] END OF SEPTEMBER. CYCLE 2 RECEIVED ON 11/04, with Atezolizumab. Completed 4 cycles of Atezo, carbo and etoposide, on 01/06. Had one cycle of maintenance atezolizumab on 01/23. Interval History Interval history: Anna Crawford is a 73 year old lady, here for a follow-up visit. She has been hanging in there. She tells me over the last couple of months her neck has been feeling rather stiff. It is hard to move it. It is hard for her to sleep at night. She has also been feeling more tired lately. Hemoglobin is down to 7.4. She is receiving 2 units of blood today. No fever chills or night sweats. No headache, she does get some dizziness. She has chest pain and trouble breathing. She denies cough nor sputum. She denies abdominal pain nausea vomiting heartburn indigestion. Bowels sometimes gets constipated. No gross blood in the stools. Appetite is okay. She is trying to eat. She has lost weight. No dysuria or hematuria. No joint pain or muscle pain. She denies any focal weakness. She does have a history of depression. She is on medications. No skin rashes but has dry skin. INTERIM HISTORY:: Patient received her 2nd cycle of carbo etoposide and atezolizumab on 11/04. She was subsequently admitted on 11/13 till 11/14. Discharge summary: 72-year-old female with a PMH significant for small cell lung cancer, chronic chest pain on chronic hydromorphone, breast cancer s/p partial mastectomy and radiation, HTN, CKD 4, and IBS/chronic diarrhea who presents [facility] the ED from SNF after routine labs found significant pancytopenia. Patient admitted to medical floor with a diagnosis of pancytopenia with CBC showing WBCs 0.8, H&H 5.7/17.7, neutrophils 6, Absolute neutrophil count: 80 cells/microliter likely secondary to chemotherapy for small-cell lung cancer on carboplatin, etoposide, and atezolizumab with last infusion 11/04, patient denied bleeding, no fevers, no cough or abdominal pain received 2 units of packed RBC hematocrit improved to 24.9, hemoglobin 8.3 for neutropenia received 2 dosages of Granix, since patient is hemodynamically stable and asymptomatic, other than chronic anterior chest wall pain, therefore being discharged back to rehab facility recommend to continue neutropenic precautions and monitor CBC, patient admitted to chronic diarrhea with no recent change, no worsening abdominal pain, no nausea or vomiting. In regard to hypertension recommend to continue home medications Coreg and hydralazine, noted to have no acute COPD exacerbation, and is continued on loperamide for her chronic diarrhea. She has been feeling better. She walks with the help of a walker. PRESENTING HISTORY: She was referred by Dr. Eleazar Le, on account of recent diagnosis of small-cell carcinoma of the lung. She was originally admitted to [facility] in August. She was discharged on 08/27 due to insurance issues, she was not able to follow-up with [facility]. She was referred to [facility] but could not make it to the appointment. On 09/17 she presented to [facility] ED with worsening shortness of breath. She also complained of severe left-sided chest pain. She had chronic diarrhea. Chest x-ray showed increased opacification of the left chest consistent with major consolidation of the left upper lobe with left pleural effusion. She had chest tube placed. She was placed on BiPAP given respiratory distress. She was admitted to [facility] 09/18/2023 with shortness of breath. CT scan revealed: No evidence of PE. New small right apical pneumothorax. Slightly improved aeration the left upper lobe with persistent masslike opacity and surrounding patchy and ground-glass opacities, consistent with known carcinoma. Narrowing of the left upper lobe bronchus and segmental airways likely due to encasement by the mask. Near resolution of the left pleural effusion status post left pleural drainage catheter. Increasing mediastinal and bilateral supraclavicular adenopathy concerning for progression of disease. Pleural fluid cytology was positive for small-cell carcinoma. She underwent chemotherapy with Carbo and etoposide while inpatient in mid September. PAST MEDICAL HISTORY: 1. HYPERTENSION. 2. DIABETES. 3. CKD. 4. ASTHMA. 5. HCV. 6. HISTORY OF RIGHT BREAST CANCER STATUS POST PARTIAL MASTECTOMY IN 2016. STATUS POST XRT COMPLETED [place] [address] Apple.. 7. Previous history of squamous cell carcinoma of the right lung. 8. Had COVID infection end of August. FAMILY HISTORY: Noncontributory. SOCIAL HISTORY: She did different or jobs. 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 She is not . She has 1 son. She smoked a pack-a-day starting age 18. She quit 2 years ago. She used to drink when she went out with her friends. Review of Systems - Constitutional Reports no additional constitutional complaints, Reports lack of energy, Reports weight loss - Eyes Reports no additional eye complaints - ENT Reports no additional ear, nose, mouth, and throat complaints - Cardiovascular Reports no additional cardiovascular complaints - Respiratory Reports no additional respiratory complaints - Gastrointestinal Reports no additional gastrointestinal complaints - Genitourinary Reports no additional female genitourinary complaints - Musculoskeletal Reports no additional musculoskeletal complaints - Integumentary/Breasts Skin/Breast: Reports no additional skin complaints - Neurologic Reports no additional neurologic complaints - Psychiatric Reports no additional psychiatric complaints - Endocrine Reports no additional endocrine complaints - Hematologic/Lymphatic Reports no additional hematologic/lymphatic complaints - Allergic/Immunologic Reports no additional allergic/immunologic complaints [facility] Medical History: Medical History (Last Reviewed 01/28/24 @ 15:15 by Simon Rey RN) Breast cancer Chronic diarrhea CKD (chronic kidney disease) HBP (high blood pressure) HTN (hypertension) Functional capacity: uses cane/walker Patient : No Social History: Social History (Last Reviewed 01/28/24 @ 15:26 by Simon Rey RN) Living Situation History: Household Members: Spouse Household Members: None Housing: Longterm Do you presently have visiting nurse or other home services: No Alcohol History Details: 1. How often do you have a drink containing alcohol?: a. Never Tobacco History: Patient Tobacco Use Status: Former Tobacco user Tobacco use type: Cigarette e-Cigarette/Vaping Use: Never Used Second Hand Smoke Exposure: No Substance Use History: Use of substances other than those prescribed or required for medical reasons: No Domestic Abuse History: Have you been hit, kicked, punched, or otherwise hurt by someone within the past year? If so, by whom?: No Do you feel safe in your current relationship?: Yes Advance Directives: Advance Directives Date on File: 10/25/23 Homicidal Assessment: Do you have thoughts of harming others: None Do you have a plan to hurt others: No Plan Nutrition Assessment: Patient : No Occupation Assessmet: service: No Current occupational status: retired Current occupational status: disabled Oncology Screenings - ECOG Performance Status ECOG Performance Status: 1 Home Medications and Allergies Current Medications: Current Medications Acetaminophen (Acetaminophen 325 Mg Tablet) 650 mg PO ONCE SADE Stop: 02/11/24 23:59 Diphenhydramine HCl (Diphenhydramine Hcl 50 Mg/Ml Vial) 25 mg IVPUSH ONCE SADE Stop: 02/11/24 23:59 Heparin Sodium (Porcine) (Heparin Sodium,Porcine Flush 500 Unit/5 Ml Syringe) 500 unit IVFLUSH ONCE SADE Stop: 02/11/24 23:59 Ondansetron HCl (Ondansetron Odt 8 Mg Tab.Rapdis) 8 mg TRANSLINGU ONCE SADE Stop: 02/11/24 23:59 Home Medications ?Medication ?Instructions ?Recorded ?Confirmed ?Type aspirin 81 mg capsule 81 mg PO DAILY 10/24/23 01/28/24 History acetaminophen 325 mg tablet 650 mg PO Q8H PRN Pain 11/14/23 01/28/24 History aspirin 81 mg tablet,delayed 81 mg PO DAILY 11/14/23 01/28/24 History release bisacodyl 10 mg rectal suppository 10 mg MD DAILY PRN Constipation 11/14/23 01/28/24 History carvedilol 12.5 mg tablet 12.5 mg PO BID 11/14/23 01/28/24 History folic acid 1 mg tablet 1 mg PO DAILY 11/14/23 01/28/24 History hydralazine 100 mg tablet 100 mg PO BID 11/14/23 01/28/24 History hydromorphone 2 mg tablet 1 mg PO Q4H PRN Pain, Moderate 11/14/23 01/28/24 History hydromorphone 2 mg tablet 2 mg PO Q4H PRN Pain, Severe 11/14/23 01/28/24 History ipratropium 0.5 mg-albuterol 3 mg 3 ml inhalation Q4H PRN Shortness 11/14/23 01/28/24 History (2.5 mg base)/3 mL nebulization Of Breath soln ipratropium 0.5 mg-albuterol 3 mg 3 ml inhalation QID 11/14/23 01/28/24 History (2.5 mg base)/3 mL nebulization soln loperamide 2 mg capsule 2 mg PO Q3H PRN Loose Stool 11/14/23 01/28/24 History magnesium hydroxide 400 mg/5 mL 30 ml PO DAILY PRN Constipation 11/14/23 01/28/24 History oral suspension (Milk of Magnesia) ondansetron HCl 8 mg tablet 8 mg PO Q8H PRN Nausea And Vomiting 11/14/23 01/28/24 History polyethylene glycol 3350 17 17 g PO DAILY 11/14/23 01/28/24 History gram/dose oral powder (Miralax) sennosides 8.6 mg tablet (senna) 17.2 mg PO BEDTIME 11/14/23 01/28/24 History sodium phosphates 19 gram-7 118 ml MD DAILY PRN Constipation 11/14/23 01/28/24 History gram/118 mL enema (Fleet Enema) thiamine HCl (vitamin B1) 100 mg 100 mg PO DAILY 11/14/23 01/28/24 History tablet trazodone 100 mg tablet 100 mg PO BEDTIME 11/14/23 01/28/24 History trazodone 50 mg tablet 50 mg PO BEDTIME 11/14/23 01/28/24 History Allergies Allergy/AdvReac Type Severity Reaction Status Date / Time carisoprodol [From Soma] Allergy Hives Verified 01/16/24 16:47 codeine Allergy Itching Verified 01/16/24 16:47 Exam Vital signs: Vital Signs Temp 98.1 F 02/11/24 09:17 Pulse 72 02/11/24 09:17 Resp 18 02/11/24 09:17 BP 142/79 H 02/11/24 09:17 Pulse Ox 97 02/11/24 09:17 O2 Del Method Room Air 02/11/24 09:17 O2 Flow Rate 2 01/07/24 08:11 Intake & Output 02/10/24 02/11/24 02/11/24 18:59 06:59 18:59 Other: Weight 64.1 kg Blanket Weight in Grams [id number] Weight 64.1 kg BMI result Body Mass Index 27.6 - Constitutional Present: no acute distress - Routine HEENT Exam Head: Present: normal inspection Eye: Present: normal appearance ENT: Present: mucous membranes moist - Routine Neck Exam Present: full ROM - Routine Respiratory Exam Present: CTAB - Routine Cardiovascular Exam Cardiovascular: Present: RRR, S1, S2 - Routine Abdominal Exam Present: soft, nontender - Routine Rectal Exam Patient deferred: digital exam - Routine Extremities Exam Present: nontender - Routine Back/Spine/Pelvis Exam Back/Spine: Present: full ROM - Routine Skin Exam Present: intact - Routine Neurological Exam Present: alert, oriented X3 - Routine Psychiatric Exam Present: normal affect Data - Labs CBC & Chem 7: 02/11/24 09:30 02/11/24 09:30 Assessment and Plan Patient Active problem list reviewed?: Yes (1) Small cell lung cancer in adult Status: Acute Assessment and plan: This is a pleasant 72-year-old, with recent diagnosis of small-cell carcinoma of the lung, extensive stage disease. Patient previously has had: 1. Breast cancer. 2. Squamous cell carcinoma of the lung. 3. HCC. On 09/17 she presented to [facility] ED with worsening shortness of breath. She also complained of severe left-sided chest pain. She had chronic diarrhea. Chest x-ray showed increased opacification of the left chest consistent with major consolidation of the left upper lobe with left pleural effusion. She had chest tube placed. She was placed on BiPAP given respiratory distress. She was admitted to [facility] 09/18/2023 with shortness of breath. CT scan revealed: No evidence of PE. New small right apical pneumothorax. Slightly improved aeration the left upper lobe with persistent masslike opacity and surrounding patchy and ground-glass opacities, consistent with known carcinoma. Narrowing of the left upper lobe bronchus and segmental airways likely due to encasement by the mask. Near resolution of the left pleural effusion status post left pleural drainage catheter. Increasing mediastinal and bilateral supraclavicular adenopathy concerning for progression of disease. Pleural fluid cytology was positive for small-cell carcinoma. She underwent chemotherapy with Carbo and etoposide while inpatient in mid September. Between 09/19 and 09/21. She was then referred here for insurance reasons. I offered continuing her treatment here. She and her son were willing. She received cycle 2 with atezolizumab on 11/04. She ended up in the hospital on 11/13 with pancytopenia and neutropenic sepsis. l referred her for pulmonary evaluation for her advanced COPD. She is here for cycle 6. She feels, quite tired today. She is pancytopenic. CBC: WBC 3.3, HGB 5.1, HCT 72. She received 2 units of packed RBC, today. CT scan of the chest from 01/30, was read on 02/06 revealed: 1. No priors available for comparison. 2. Innumerable pulmonary nodules as described, measuring up to 7 mm in the right middle lobe, most consistent with metastatic disease. 3. Unilateral pulmonary edema left lung. There may be mild changes in the right lung. 4. Innumerable patchy groundglass opacities in both lungs, nonspecific. Suspect inflammatory and/or infectious etiologies, developing of areas of alveolar edema, or possibly drug reaction. Recommend correlation clinically. 5. Hepatic cirrhosis with enhancing and nonenhancing masses as described, likely related to metastatic disease. Additional findings in the spleen, and gastrohepatic ligament as discussed. Unfortunately her disease has progressed. I shared the above results with her. I offered palliative care versus, further treatment. I talked about second-line therapy, choices include: 1. Topotecan days 1-5, Q 21 days. 2. Lurbinectin : 3.2/m2 mg IV over 60 minutes, Q 21 days. She prefers the latter, on account of the easier schedule. I shared details of the treatment, including potential side effects including hypersensitivity reaction, skin rash, nausea vomiting diarrhea, pancytopenia, risk of infection, need for antibiotics, and blood transfusion were all addressed with her. PLAN: I gave her a handout on Lurbinectin. I will get prior authorization and get her started next week. Meanwhile she will receive 2 units of packed RBCs. Her pain has been getting difficult to control. I will treat with Dilaudid 6 mg every 6 hours p.r.n. All her questions were answered to their satisfaction. Thank you, CC: Dr. David Le. - Time Spent With Patient Time Spent with Patient (in minutes): 25
[2024-02-11] MEDS: diphenhydrAMINE HCL 50 MG/ML VIAL 25 MG IVPUSH (12:05)
[2024-02-11] MEDS: oxyCODONE HCl Immed Release 5 MG TABLET 10 MG PO (13:49)
[2024-02-11] MEDS: Morphine Sulfate 10 MG/ML CARTRIDGE 8 MG IVPUSH (15:38)
--- NOTE | 2024-02-12 09:35 | MHC.HEMONC ---
Pt was in the previous day for Atezolizumab, reported baseline symptoms, fatigue, intermittent pain in her neck and Left chest, pt's VSS, Nurse flushed pt's RUE double-lumen midline, found positive blood return, collected ordered blood specimens, including type + screen, Hgb resulted 7.6. Dr. Jesus was in to meet w/ pt, discussed recent scan results, cancer is progressing, told pt she may have 6 months to live, pt was ordered to stop current atezo tx regimen, today to receive x2 units PRBC only, but Dr. Jesus discussed options of palliative care alone or trying new tx w/ new start IV Lurbinectedin, pt opted to try new tx, PA specialist Marysol confirmed PA, chemopharmacist was notified of new start date on 02/20/24, nurse also spoke w/ [facility] and booked transportation for new tx regimen, Q21 days. Pt signed consent for new tx and nurse performed chemo teach. Blood bank arrived to band pt. Nurse transfused x2 units PRBCs, which were well-tolerated. Pt was given 25 mg IVP benadryl at her request, also nurse admin x1 dose of oxycodone 10 mg PO for c/o 9/10 pain in neck and chest, w/ minimal effect, then nurse admin Morphine 8 mg IVP which brought pain down to 7/10. Pt reports her pain is insufficiently managed at home, currently has orders for MS contin 15 mg PO Q12H and dilaudid 2-4 mg PO Q4H PRN for severe pain, which she says barely takes the edge off. Nurse called [facility], spoke w/ nurse, faxed a copy of Dr. Jesus's note to [phone] for review by their provider, including her recommendation to increase PRN dilaudid dose to 6 mg PO Q4H PRN, fax confirmation received. Dr. Jesus also spoke to pt's son regarding pt's new prognosis. Nurse flushed midline, also changed dsg in sterile procedure, pt was given d/c packet, departed via w/c.
[2024-02-20 09:09] VITALS: BP 117/56; PULSE 66; RESP 18; TEMP 36.3; O2SAT 96; BMI 28.0
[2024-02-20 09:15] LABS: MANUAL DIFF FLAG NO
[2024-02-20 09:16] LABS: Basophils Percent Auto 0.2 % (0-2); Eosinophils Absolute Auto 0.1 X10*3/uL (0.0-0.4); Hemoglobin 8.9 g/dl (12.0-16.0); Imm Gran Abs Auto 0.02 X10*3/uL (0.00-0.03); Imm Gran Pct Auto 0.4 % (0.0-0.4); Lymphocytes Absolute Auto 1.2 X10*3/uL (1.2-4.9); Lymphocytes Percent Auto 24.4 % (20-40); Mean Corpuscular HGB Conc 31.8 g/dl (31.0-35.0); Mean Corpuscular Hemoglobin 29.6 pg (27.0-33.0); Mean Platelet Volume 10.2 fL (9.4-12.3); Monocytes Absolute Auto 0.6 X10*3/uL (0.1-1.2); Monocytes Percent Auto 12.4 % (2-11); Neutrophils Percent Auto 61.6 % (45-73); Red Blood Count 3.01 X10*6/uL (4.20-5.50); Red Cell Distribution Width 19.8 % (11.0-16.0); White Blood Count 4.8 X10*3/uL (4.8-10.8)
[2024-02-20 09:18] LABS: Platelet Count 85 X10*3/uL (160-400)
[2024-02-20 09:41] LABS: Alanine Aminotransferase 18 U/L (0-31); Albumin Level 2.6 g/dL (3.5-5.0); Alkaline Phosphatase 129 U/L (39-117); Anion Gap 12 (12-20); Aspartate Amino Transferase 41 U/L (5-31); Bilirubin Total 0.4 mg/dL (0.0-1.0); Blood Urea Nitrogen 34 mg/dL (9-16); Calcium 9.2 mg/dL (8.4-10.2); Carbon Dioxide 23 mmol/L (22-29); Chloride 110 mmol/L (96-108); Creatinine Clr Calc Pharmacy 17.7; Estimated Glomerular Filt Rate 21; Glucose Random 129 mg/dL (60-115); Sodium 140 mmol/L (135-145); Total Protein 5.4 g/dL (6.5-8.0)
[2024-02-20] MEDS: diphenhydrAMINE HCL 50 MG/ML VIAL 25 MG IVPUSH (10:10)
[2024-02-20] MEDS: Acetaminophen 325 MG TABLET 650 MG PO (10:10)
[2024-02-20] MEDS: dexAMETHasone sod phosphate/NS 12 MG/50 ML PIGGYBACK 200 MG IV (10:15)
--- NOTE | 2024-02-20 11:14 | MHC.HEMONC ---
Addendum entered by Malinda Juarez RN 02/20/24 14:57: Premeds done. Received Tylenol po, dexamethasone, benadryl, zofran IV. Treatment done and tolerated well. No s/s infusion reaction. PICC dressing changed. Area clean, dry, intact. No redness or swelling at the site. Pt scheduled for labs in 1 week. [facility], but no answer. Will try again. Pt departed via wheelchair with [facility]. Original Note: Here for C1 D1 Zemike. She states she is feeling ok, except she reports she has neck pain, and not sleeping well. PICC in place, flushed with NS with good blood return noted. Labs obtained. Hgb 8.9, platelet count 85. Alk phos and AST elevated and Dr Jesus is aware. Premeds started as ordered.
--- NOTE | 2024-02-27 10:10 | MHC.HEMONC ---
Pt is [place] [facility] [place]
--- NOTE | 2024-02-27 15:09 | MHC.HEMONCSW ---
This singer songwriter went to room 483 to visit with patient, who was admitted on 02/23 to the hospital. Patient was asleep with lights off when this singer songwriter entered the room. This singer songwriter will attempt to meet with patient tomorrow 02/27.
--- NOTE | 2024-03-02 09:21 | MHC.HEMONC ---
Per Dr Echeverria pt is inpatient at [facility] with infected PIC line-PiC line removed per provider.
[2024-03-12 09:09] VITALS: BP 126/63; PULSE 53; RESP 18; TEMP 37.2; O2SAT 96; BMI 27.6
--- NOTE | 2024-03-12 09:22 | P.PNHO-ONC_ITS ---
Medical Summary - Medical Summary Date of Service: 03/12/24 Chief complaint: Follow-up for: Small-cell carcinoma of the lung. Primary Care Provider: Eleazar Le III, MD Medical Summary: DIAGNOSIS: EXTENSIVE STAGE SMALL-CELL CARCINOMA OF THE LUNG. CURRENT THERAPY: STATUS POST 1 CYCLE OF CARBO AND ETOPOSIDE AN INPATIENT AT [facility] END OF SEPTEMBER. CYCLE 2 RECEIVED ON 11/04, with Atezolizumab. Completed 4 cycles of Atezo, carbo and etoposide, on 01/06. Had one cycle of maintenance atezolizumab on 01/23. Received 1 cycle of Lurbinectedin on 02/20/24. Interval History Interval history: Anna Crawford is a 73 year old lady, here for a follow-up visit. She was in house end of last month, between 02/23 and 03/06/24. Discharge summary: Pt. is a 73-year-old female with a past medical history of COPD unspecified, breast cancer s/p partial mastectomy and radiation, small-cell lung cancer being treated with chemotherapy, last chemotherapy session was 5 days ago with a new agent, Lurbinectedin, and chronic anemia and HTN, who presented to the ED with confusion and lethargy for a few days. She is a poor historian due to confusion but does reports urinary symptoms including dysuria and frequency. She denies any hematuria, abdominal pain, shortness of breath, chest pain, nausea or vomiting. There was also a concern for neck pain while in the ED, upon further investigation the patient reported that this is chronic for her. Acute metabolic encephalopathy due to klebsiella urinary tract infection complicated by stenotrophomonas bacteremia, changed ceftriaxone to bactrim DS times one, then SS bid (GFR 25), for 14 days. (end mar 14, 2024). Seen by ID. No sepsis, pancytopenia is chronic due to chemotherapy. Picc removed 02/29/24, repeat culture from 03/01/24 still positive, BCx2 repeat 03/03/24, negative times 48 hours Echo-no evidence of vegetation DON on CKD 3 with metabolic acidosis Creatinine at baseline, bicarb stable, follow labs. Dose of soda bicarb reduced to once daily Small cell lung ca on Lurbinectedin, complicated by pancytopenia/chronic pain transfused 1 unit prbc 02/26/24, improved appropriately, hematocrit stable She has been holding stable. She has had ongoing neck pain and stiffness. Sometimes, it is hard for her to move it. It is difficult for her to sleep at night. She has been tired lately. She received a unit of blood today. No fever chills or night sweats. No headache, she does get some dizziness. She has chest pain and trouble breathing. She denies cough nor sputum. She denies abdominal pain nausea vomiting heartburn indigestion. Bowels sometimes gets constipated. No gross blood in the stools. Appetite is low. She is trying to eat. She has lost weight. No dysuria or hematuria. No joint pain or muscle pain. She denies any focal weakness. She does have a history of depression. She is on medications. No skin rashes but has dry skin. INTERIM HISTORY:: Patient received her 2nd cycle of carbo etoposide and atezolizumab on 11/04. She was subsequently admitted on 11/13 till 11/14. Discharge summary: 72-year-old female with a PMH significant for small cell lung cancer, chronic chest pain on chronic hydromorphone, breast cancer s/p partial mastectomy and radiation, HTN, CKD 4, and IBS/chronic diarrhea who [facility] the ED from [facility] after routine labs found significant pancytopenia. Patient admitted to medical floor with a diagnosis of pancytopenia with CBC showing WBCs 0.8, H&H 5.7/17.7, neutrophils 6, Absolute neutrophil count: 80 cells/microliter likely secondary to chemotherapy for small-cell lung cancer on carboplatin, etoposide, and atezolizumab with last infusion 11/04, patient denied bleeding, no fevers, no cough or abdominal pain received 2 units of packed RBC hematocrit improved to 24.9, hemoglobin 8.3 for neutropenia received 2 dosages of Granix, since patient is hemodynamically stable and asymptomatic, other than chronic anterior chest wall pain, therefore being discharged back to rehab facility recommend to continue neutropenic precautions and monitor CBC, patient admitted to chronic diarrhea with no recent change, no worsening abdominal pain, no nausea or vomiting. In regard to hypertension recommend to continue home medications Coreg and hydralazine, noted to have no acute COPD exacerbation, and is continued on loperamide for her chronic diarrhea. She has been feeling better. She walks with the help of a walker. PRESENTING HISTORY: She was referred by Dr. Eleazar Le, on account of recent diagnosis of small- cell carcinoma of the lung. She was originally admitted to [facility] in August. She was discharged on 08/27 due to insurance issues, she was not able to follow-up with [facility]. She was referred to [facility] but could not make it to the appointment. On 09/17 she presented to [facility] ED with worsening shortness of breath. She also complained of severe left-sided chest pain. She had chronic diarrhea. Chest x-ray showed increased opacification of the left chest consistent with major consolidation of the left upper lobe with left pleural effusion. She had chest tube placed. She was placed on BiPAP given respiratory distress. She was admitted to [facility] 09/18/2023 with shortness of breath. CT scan revealed: No evidence of PE. New small right apical pneumothorax. Slightly improved aeration the left upper lobe with persistent masslike opacity and surrounding patchy and ground-glass opacities, consistent with known carcinoma. Narrowing of the left upper lobe bronchus and segmental airways likely due to encasement by the mask. Near resolution of the left pleural effusion status post left pleural drainage catheter. Increasing mediastinal and bilateral supraclavicular adenopathy concerning for progression of disease. Pleural fluid cytology was positive for small-cell carcinoma. She underwent chemotherapy with Carbo and etoposide while inpatient in mid September. PAST MEDICAL HISTORY: 1. HYPERTENSION. 2. DIABETES. 3. CKD. 4. ASTHMA. 5. HCV. 6. HISTORY OF RIGHT BREAST CANCER STATUS POST PARTIAL MASTECTOMY IN 2016. STATUS POST XRT COMPLETED [place] [address] Apple.. 7. Previous history of squamous cell carcinoma of the right lung. 8. Had COVID infection end of August. FAMILY HISTORY: Noncontributory. SOCIAL HISTORY: She did different or jobs. 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 She is not . She has 1 son. She smoked a pack-a-day starting age 18. She quit 2 years ago. She used to drink when she went out with her friends. Review of Systems - Constitutional Reports no additional constitutional complaints, Reports lack of energy, Reports weight loss - Eyes Reports no additional eye complaints - ENT Reports no additional ear, nose, mouth, and throat complaints - Cardiovascular Reports no additional cardiovascular complaints - Respiratory Reports no additional respiratory complaints - Gastrointestinal Reports no additional gastrointestinal complaints - Genitourinary Reports no additional female genitourinary complaints - Musculoskeletal Reports no additional musculoskeletal complaints - Integumentary/Breasts Skin/Breast: Reports no additional skin complaints - Neurologic Reports no additional neurologic complaints - Psychiatric Reports no additional psychiatric complaints - Endocrine Reports no additional endocrine complaints - Hematologic/Lymphatic Reports no additional hematologic/lymphatic complaints - Allergic/Immunologic Reports no additional allergic/immunologic complaints [facility] Medical History: Medical History (Last Updated 03/10/24 @ 10:50 by Diane Hawkins RN) Bacteremia Breast cancer Cerebral infarction, unspecified Chronic diarrhea CKD (chronic kidney disease) Difficulty in walking, not elsewhere classified Essential (primary) hypertension HBP (high blood pressure) HTN (hypertension) Hyperlipidemia, unspecified Malignant neoplasm of unspecified part of unspecified bronchus or lung Muscle weakness (generalized) Need for assistance with personal care Other cerebral infarction due to occlusion or stenosis of small artery Other cirrhosis of liver Other irritable bowel syndrome Personal history of malignant neoplasm of breast Personal history of nicotine dependence Unspecified asthma, uncomplicated Unspecified viral hepatitis C without hepatic coma Weakness Functional capacity: uses cane/walker Patient : No Surgical History: Surgical History (Last Updated 03/10/24 @ 11:44 by Diane Hawkins RN) H/O breast surgery H/O hernia repair History of total knee replacement Social History: Social History (Last Reviewed 03/01/24 @ 23:33 by Pepper Car MD) Living Situation History: Household Members: None Housing: Jail Do you presently have visiting nurse or other home services: Yes Alcohol History Details: 1. How often do you have a drink containing alcohol?: a. Never Tobacco History: Patient Tobacco Use Status: Former Tobacco user Tobacco use type: Cigarette Cigarette Packs Per Day: 1 Years Smoked: 50 e-Cigarette/Vaping Use: Never Used Second Hand Smoke Exposure: No Substance Use History: Use of substances other than those prescribed or required for medical reasons : No Substance Use Type: Marijuana Domestic Abuse History: Have you been hit, kicked, punched, or otherwise hurt by someone within the past year? If so, by whom?: No Do you feel safe in your current relationship?: Yes Advance Directives: Advance Directives Date on File: 10/25/23 Homicidal Assessment: Do you have thoughts of harming others: None Do you have a plan to hurt others: No Plan Nutrition Assessment: Patient : No Occupation Assessmet: service: No Current occupational status: retired Current occupational status: disabled Oncology Screenings - ECOG Performance Status ECOG Performance Status: 1 Home Medications and Allergies Current Medications: Current Medications Acetaminophen (Acetaminophen 325 Mg Tablet) 650 mg PO ONCE SADE Stop: 03/12/24 23:59 Diphenhydramine HCl (Diphenhydramine Hcl 50 Mg/Ml Vial) 25 mg IVPUSH ONCE SADE Stop: 03/12/24 23:59 Heparin Sodium (Porcine) (Heparin Sodium,Porcine Flush 500 Unit/5 Ml Syringe) 500 unit IVFLUSH ONCE SADE Stop: 03/12/24 23:59 Dexamethasone Sodium Phosphate (Decadron) 12 mg in 50 mls @ 200 mls/hr IV ONCE SADE Stop: 03/12/24 23:59 Ondansetron HCl (Zofran) 16 mg in 50 mls @ 200 mls/hr IV ONCE SADE Stop: 03/12/24 23:59 Home Medications ?Medication ?Instructions ?Recorded ?Confirmed ?Type acetaminophen 325 mg tablet 650 mg PO Q6H PRN Pain/Fever 11/14/23 03/10/24 History bisacodyl 10 mg rectal suppository 10 mg IL DAILY PRN Constipation 11/14/23 03/10/24 History carvedilol 12.5 mg tablet 12.5 mg PO BID 11/14/23 03/10/24 History folic acid 1 mg tablet 1 mg PO DAILY 11/14/23 03/10/24 History hydralazine 100 mg tablet 100 mg PO BID 11/14/23 03/10/24 History hydromorphone 2 mg tablet 2 mg PO Q6H PRN Pain, Moderate 11/14/23 03/10/24 History hydromorphone 2 mg tablet 4 mg PO Q6H PRN Pain, Severe 11/14/23 03/10/24 History ipratropium 0.5 mg-albuterol 3 mg 3 ml inhalation Q4H PRN Shortness 11/14/23 03/10/24 History (2.5 mg base)/3 mL nebulization Of Breath soln magnesium hydroxide 400 mg/5 mL 30 ml PO DAILY PRN Constipation 11/14/23 03/10/24 History oral suspension (Milk of Magnesia) ondansetron HCl 8 mg tablet 8 mg PO Q8H PRN Nausea And Vomiting 11/14/23 03/10/24 History polyethylene glycol 3350 17 17 g PO DAILY 11/14/23 03/10/24 History gram/dose oral powder (Miralax) sennosides 8.6 mg tablet (senna) 17.2 mg PO BEDTIME 11/14/23 03/10/24 History sodium phosphates 19 gram-7 118 ml IL DAILY PRN Constipation 11/14/23 03/10/24 History gram/118 mL enema (Fleet Enema) thiamine HCl (vitamin B1) 100 mg 100 mg PO DAILY 11/14/23 03/10/24 History tablet trazodone 100 mg tablet 100 mg PO BEDTIME 11/14/23 03/10/24 History trazodone 50 mg tablet 50 mg PO BEDTIME 11/14/23 03/10/24 History acetaminophen 325 mg tablet 650 mg PO DAILY pain 02/24/24 03/10/24 History clonazepam 0.5 mg tablet 0.5 mg PO BID PRN Muscle Spasm 02/24/24 03/10/24 History melatonin 10 mg tablet 10 mg PO BEDTIME PRN Sleep 02/24/24 03/10/24 History morphine 15 mg tablet,extended 15 mg PO DAILY 02/24/24 03/10/24 History release umeclidinium 62.5 mcg-vilanterol 1 ea inhalation DAILY 02/24/24 03/10/24 History 25 mcg/actuation powdr for inhalation (Anoro Ellipta) Allergies Allergy/AdvReac Type Severity Reaction Status Date / Time carisoprodol [From Soma] Allergy Severe Hives Verified 03/10/24 11:44 codeine Allergy Severe Itching Verified 03/10/24 11:44 Exam Vital signs: Vital Signs Temp 99.0 F 03/12/24 09:09 Pulse 53 03/12/24 09:09 Resp 18 03/12/24 09:09 BP 126/63 03/12/24 09:09 Pulse Ox 96 03/12/24 09:09 O2 Del Method Room Air 03/12/24 09:09 O2 Flow Rate 2 01/07/24 08:11 Intake & Output 03/11/24 03/12/24 03/12/24 18:59 06:59 18:59 Other: Weight 64.1 kg Weight in Grams 34635 Weight 64.1 kg BMI result Body Mass Index 27.6 - Constitutional Present: no acute distress - Routine HEENT Exam Head: Present: normal inspection Eye: Present: normal appearance ENT: Present: mucous membranes moist - Routine Neck Exam Present: full ROM - Routine Respiratory Exam Present: CTAB - Routine Cardiovascular Exam Cardiovascular: Present: RRR, S1, S2 - Routine Abdominal Exam Present: soft, nontender - Routine Rectal Exam Patient deferred: digital exam - Routine Extremities Exam Present: nontender - Routine Back/Spine/Pelvis Exam Back/Spine: Present: full ROM - Routine Skin Exam Present: intact - Routine Neurological Exam Present: alert, oriented X3 - Routine Psychiatric Exam Present: normal affect Data - Labs CBC & Chem 7: 03/12/24 09:25 03/12/24 09:25 Assessment and Plan Patient Active problem list reviewed?: Yes (1) Small cell lung cancer in adult Status: Acute Assessment and plan: This is a pleasant 72-year-old, with recent diagnosis of small-cell carcinoma of the lung, extensive stage disease. Patient previously has had: 1. Breast cancer. 2. Squamous cell carcinoma of the lung. 3. HCC. On 09/17 she presented to [facility] ED with worsening shortness of breath. She also complained of severe left-sided chest pain. She had chronic diarrhea. Chest x-ray showed increased opacification of the left chest consistent with major consolidation of the left upper lobe with left pleural effusion. She had chest tube placed. She was placed on BiPAP given respiratory distress. She was admitted to [facility] 09/18/2023 with shortness of breath. CT scan revealed: No evidence of PE. New small right apical pneumothorax. Slightly improved aeration the left upper lobe with persistent masslike opacity and surrounding patchy and ground-glass opacities, consistent with known carcinoma. Narrowing of the left upper lobe bronchus and segmental airways likely due to encasement by the mask. Near resolution of the left pleural effusion status post left pleural drainage catheter. Increasing mediastinal and bilateral supraclavicular adenopathy concerning for progression of disease. Pleural fluid cytology was positive for small-cell carcinoma. She underwent chemotherapy with Carbo and etoposide while inpatient in mid September. Between 09/19 and 09/21. She was then referred here for insurance reasons. I offered continuing her treatment here. She and her son were willing. She received cycle 2 with atezolizumab on 11/04. She ended up in the hospital on 11/13 with pancytopenia and neutropenic sepsis. l referred her for pulmonary evaluation for her advanced COPD. She is here for cycle 6. She feels, quite tired today. She is pancytopenic. CBC: WBC 3.3, HGB 5.1, HCT 72. She received 2 units of packed RBC, today. CT scan of the chest from 01/30, was read on 02/06 revealed: 1. No priors available for comparison. 2. Innumerable pulmonary nodules as described, measuring up to 7 mm in the right middle lobe, most consistent with metastatic disease. 3. Unilateral pulmonary edema left lung. There may be mild changes in the right lung. 4. Innumerable patchy groundglass opacities in both lungs, nonspecific. Suspect inflammatory and/or infectious etiologies, developing of areas of alveolar edema, or possibly drug reaction. Recommend correlation clinically. 5. Hepatic cirrhosis with enhancing and nonenhancing masses as described, likely related to metastatic disease. Additional findings in the spleen, and gastrohepatic ligament as discussed. Unfortunately her disease has progressed. I shared the above results with her. I offered palliative care versus, further treatment. I talked about second-line therapy, choices include: 1. Topotecan days 1-5, Q 21 days. 2. Lurbinectin : 3.2/m2 mg IV over 60 minutes, Q 21 days. She prefers the latter, on account of the easier schedule. I shared details of the treatment, including potential side effects including hypersensitivity reaction, skin rash, nausea vomiting diarrhea, pancytopenia, risk of infection, need for antibiotics, and blood transfusion were all addressed with her. I gave her a handout on Lurbinectin. She received her 1st dose on 02/20. She was subsequently in house between 02/23 and 03/06. Her PICC line got infected and she required IV antibiotics. She is still on oral antibiotics for another couple of days. Her blood count is low today: WBC 2.9, HGB 8, PLT 75. PLAN: Will hold her lurbinectedin today. Meanwhile she will receive a unit of packed RBCs. She was given Dilaudid 2 mg for her neck pain. She will return next week to receive her chemotherapy. All her questions were answered to their satisfaction. Thank you, CC: Dr. David Le. - Time Spent With Patient Time Spent with Patient (in minutes): 25
[2024-03-12 09:35] LABS: MANUAL DIFF FLAG NO
[2024-03-12 09:37] LABS: Eosinophils Percent Auto 0.3 % (0-4); Hematocrit 25.2 % (37.0-47.0); Imm Gran Abs Auto 0.01 X10*3/uL (0.00-0.03); Imm Gran Pct Auto 0.3 % (0.0-0.4); Lymphocytes Absolute Auto 1.4 X10*3/uL (1.2-4.9); Lymphocytes Percent Auto 48.3 % (20-40); Mean Corpuscular HGB Conc 31.7 g/dl (31.0-35.0); Mean Corpuscular Volume 94.4 fL (80.0-98.0); Mean Platelet Volume 10.3 fL (9.4-12.3); Monocytes Absolute Auto 0.4 X10*3/uL (0.1-1.2); Monocytes Percent Auto 13.6 % (2-11); Neutrophils Absolute Auto 1.1 x10*3/uL (2.0-8.3); Neutrophils Percent Auto 37.5 % (45-73); Red Blood Count 2.67 X10*6/uL (4.20-5.50); Red Cell Distribution Width 19.5 % (11.0-16.0); White Blood Count 2.9 X10*3/uL (4.8-10.8)
[2024-03-12 09:39] LABS: Platelet Count 75 X10*3/uL (160-400)
[2024-03-12 09:59] LABS: Alanine Aminotransferase < 6 U/L (0-31); Albumin Level 2.6 g/dL (3.5-5.0); Alkaline Phosphatase 103 U/L (39-117); Anion Gap 10 (12-20); Aspartate Amino Transferase 34 U/L (5-31); Bilirubin Total 0.3 mg/dL (0.0-1.0); Blood Urea Nitrogen 27 mg/dL (9-16); Calcium 8.3 mg/dL (8.4-10.2); Carbon Dioxide 19 mmol/L (22-29); Chloride 115 mmol/L (96-108); Creatinine Clr Calc Pharmacy 15.6; Estimated Glomerular Filt Rate 18; Glucose Random 93 mg/dL (60-115); Potassium 4.8 mmol/L (3.3-5.1); Sodium 139 mmol/L (135-145); Total Protein 5.3 g/dL (6.5-8.0)
[2024-03-12 10:47] VITALS: BP 126/63; PULSE 53; RESP 18; TEMP 37.2
[2024-03-12 11:03] VITALS: BP 114/56; PULSE 50; RESP 16; TEMP 37.4
[2024-03-12] MEDS: HYDROmorphone HCl 2 MG TABLET PO (11:08)
[2024-03-12] MEDS: guaiFENesin DM 200/20/10 ML 10 ML SYRUP PO (12:00)
[2024-03-12 12:31] VITALS: BP 114/57; PULSE 51; RESP 16; TEMP 37.4
--- NOTE | 2024-03-12 12:53 | MHC.HEMONC ---
Patient scheduled for C2D1: Zepzelca. New port placed 03/10 to right chest wall. Port dressing and glue intact. Dressing removed. Site tender to touch and slightly bruised. Site cleaned. Port accessed without difficulty- positive blood return. Labs obtained and reviewed. T&S completed. Platelets 75. Hgb 8.0- Patient reports fatigue. Dr. Jesus notified. Chemo to be held today and patient to receive one unit of blood. Pharmacy notified. Orders moved to 03/19. Blood bank aware. VSS. Blood transfused and well tolerated. Lungs clear- no signs of transfusion reaction. Patient reports pain 10/10 to upper neck area and port insertion site. Medicated with Dilaudid 2mg PO at 1115. Patient resting comfortably. Patient requesting cough medicine. Robitussin DM given at 12pm. Follow up with Dr. Jesus today. [facility] updated over phone of above and aware that patient will need to return next week for chemotherapy.
[2024-03-19 09:07] VITALS: BP 133/63; PULSE 52; TEMP 36.4; O2SAT 96; BMI 27.6
[2024-03-19 09:31] LABS: MANUAL DIFF FLAG NO
[2024-03-19 09:35] LABS: Basophils Percent Auto 0.3 % (0-2); Eosinophils Percent Auto 0.3 % (0-4); Hematocrit 30.9 % (37.0-47.0); Hemoglobin 9.9 g/dl (12.0-16.0); Lymphocytes Absolute Auto 1.5 X10*3/uL (1.2-4.9); Lymphocytes Percent Auto 42.5 % (20-40); Mean Corpuscular Hemoglobin 30.3 pg (27.0-33.0); Mean Corpuscular Volume 94.5 fL (80.0-98.0); Mean Platelet Volume 10.3 fL (9.4-12.3); Monocytes Absolute Auto 0.4 X10*3/uL (0.1-1.2); Monocytes Percent Auto 10.1 % (2-11); Neutrophils Absolute Auto 1.6 x10*3/uL (2.0-8.3); Neutrophils Percent Auto 46.8 % (45-73); Red Blood Count 3.27 X10*6/uL (4.20-5.50); Red Cell Distribution Width 18.1 % (11.0-16.0); White Blood Count 3.5 X10*3/uL (4.8-10.8)
[2024-03-19 09:37] LABS: Platelet Count 59 X10*3/uL (160-400)
[2024-03-19 09:46] LABS: Alanine Aminotransferase < 6 U/L (0-31); Albumin Level 2.7 g/dL (3.5-5.0); Alkaline Phosphatase 93 U/L (39-117); Anion Gap 7 (12-20); Aspartate Amino Transferase 32 U/L (5-31); Bilirubin Total 0.3 mg/dL (0.0-1.0); Blood Urea Nitrogen 26 mg/dL (9-16); Calcium 8.8 mg/dL (8.4-10.2); Carbon Dioxide 20 mmol/L (22-29); Chloride 118 mmol/L (96-108); Creatinine Clr Calc Pharmacy 17.8; Estimated Glomerular Filt Rate 21; Glucose Random 101 mg/dL (60-115); Potassium 4.9 mmol/L (3.3-5.1); Sodium 140 mmol/L (135-145); Total Protein 5.7 g/dL (6.5-8.0)
[2024-03-19] MEDS: Heparin Sodium,Porcine Flush 500 UNIT/5 ML SYRINGE IVFLUSH (12:50)
--- NOTE | 2024-03-19 12:52 | MHC.HEMONC ---
Lurbinectidin held today for low platelet count, rescheduled to next week. Patient very somnolent today. Falling asleep mid sentence. Spoke with Celia (RN at [facility]), she said they will not give klonopin before next treatment. Celia will have the chair van rides rescheduled. Pt aware of next appt, discharge packet provided.
--- NOTE | 2024-03-20 15:13 | MHC.HEMONC ---
Triage- Connie from [facility] called to confirm updated calendar. returned call & confirmed appt.
[2024-03-26 08:44] VITALS: BP 116/62; PULSE 70; TEMP 36.6; O2SAT 96; BMI 27.6
[2024-03-26 08:44] LABS: MANUAL DIFF FLAG NO
[2024-03-26 08:47] LABS: Eosinophils Percent Auto 0.5 % (0-4); Hematocrit 30.5 % (37.0-47.0); Hemoglobin 9.8 g/dl (12.0-16.0); Imm Gran Abs Auto 0.01 X10*3/uL (0.00-0.03); Imm Gran Pct Auto 0.3 % (0.0-0.4); Lymphocytes Absolute Auto 1.3 X10*3/uL (1.2-4.9); Lymphocytes Percent Auto 33.8 % (20-40); Mean Corpuscular HGB Conc 32.1 g/dl (31.0-35.0); Mean Corpuscular Hemoglobin 30.4 pg (27.0-33.0); Mean Corpuscular Volume 94.7 fL (80.0-98.0); Mean Platelet Volume 11.1 fL (9.4-12.3); Monocytes Absolute Auto 0.4 X10*3/uL (0.1-1.2); Monocytes Percent Auto 10.9 % (2-11); Neutrophils Absolute Auto 2.2 x10*3/uL (2.0-8.3); Neutrophils Percent Auto 54.5 % (45-73); Red Blood Count 3.22 X10*6/uL (4.20-5.50); Red Cell Distribution Width 17.2 % (11.0-16.0)
[2024-03-26 08:49] LABS: Platelet Count 68 X10*3/uL (160-400)
[2024-03-26 09:00] LABS: Alanine Aminotransferase 13 U/L (0-31); Albumin Level 2.7 g/dL (3.5-5.0); Alkaline Phosphatase 94 U/L (39-117); Anion Gap 8 (12-20); Aspartate Amino Transferase 57 U/L (5-31); Bilirubin Total 0.4 mg/dL (0.0-1.0); Blood Urea Nitrogen 25 mg/dL (9-16); Calcium 8.7 mg/dL (8.4-10.2); Carbon Dioxide 21 mmol/L (22-29); Chloride 115 mmol/L (96-108); Estimated Glomerular Filt Rate 22; Glucose Random 114 mg/dL (60-115); Potassium 4.5 mmol/L (3.3-5.1); Sodium 139 mmol/L (135-145); Total Protein 5.7 g/dL (6.5-8.0)
--- NOTE | 2024-03-26 09:33 | HE.PHANOTE ---
Chemotherapy 03/26/[address] Jesus in regards to this patient. It is recommended patient get full dose (3.2 mg/m2) but Dr. Jesus is concerned about platelets, wt, age . We are going to decrease by 1 dose level and give 2.6 mg/m2 for today. The calculated dose is 4.29 mg and we are going to round to 4 mg which is the nearest vial size ( still within 10 %)
[2024-03-26] MEDS: Acetaminophen 325 MG TABLET 650 MG PO (09:34)
[2024-03-26] MEDS: diphenhydrAMINE HCL 50 MG/ML VIAL 25 MG IVPUSH (09:35)
[2024-03-26] MEDS: Heparin Sodium,Porcine Flush 500 UNIT/5 ML SYRINGE IVFLUSH (09:35)
[2024-03-26] MEDS: dexAMETHasone sod phosphate/NS 12 MG/50 ML PIGGYBACK 200 MG IV (09:35)
--- NOTE | 2024-03-26 15:12 | MHC.HEMONC ---
c2 lurbinectidin at lower dose today. Tolerated well. Pt aware of next appt, discharge packet provided.
[2024-04-16 08:19] VITALS: BP 120/60; PULSE 52; RESP 18; TEMP 37.1; O2SAT 97; BMI 25.5
[2024-04-16 08:53] LABS: MANUAL DIFF FLAG NO
[2024-04-16 08:56] LABS: Basophils Percent Auto 0.4 % (0-2); Eosinophils Percent Auto 1.1 % (0-4); Hematocrit 26.8 % (37.0-47.0); Hemoglobin 8.5 g/dl (12.0-16.0); Imm Gran Abs Auto 0.01 X10*3/uL (0.00-0.03); Imm Gran Pct Auto 0.4 % (0.0-0.4); Lymphocytes Absolute Auto 0.9 X10*3/uL (1.2-4.9); Lymphocytes Percent Auto 31.8 % (20-40); Mean Corpuscular HGB Conc 31.7 g/dl (31.0-35.0); Mean Corpuscular Hemoglobin 29.1 pg (27.0-33.0); Mean Corpuscular Volume 91.8 fL (80.0-98.0); Mean Platelet Volume 11.1 fL (9.4-12.3); Monocytes Absolute Auto 0.4 X10*3/uL (0.1-1.2); Monocytes Percent Auto 12.7 % (2-11); Neutrophils Absolute Auto 1.5 x10*3/uL (2.0-8.3); Neutrophils Percent Auto 53.6 % (45-73); Red Blood Count 2.92 X10*6/uL (4.20-5.50); Red Cell Distribution Width 16.6 % (11.0-16.0); White Blood Count 2.8 X10*3/uL (4.8-10.8)
[2024-04-16 09:01] LABS: Platelet Count 78 X10*3/uL (160-400)
[2024-04-16 09:22] LABS: Alanine Aminotransferase 11 U/L (0-31); Albumin Level 2.5 g/dL (3.5-5.0); Alkaline Phosphatase 72 U/L (39-117); Anion Gap 7 (12-20); Aspartate Amino Transferase 44 U/L (5-31); Bilirubin Total 0.3 mg/dL (0.0-1.0); Blood Urea Nitrogen 23 mg/dL (9-16); Calcium 8.7 mg/dL (8.4-10.2); Carbon Dioxide 17 mmol/L (22-29); Chloride 114 mmol/L (96-108); Creatinine Clr Calc Pharmacy 19.6; Estimated Glomerular Filt Rate 24; Glucose Random 97 mg/dL (60-115); Sodium 134 mmol/L (135-145); Total Protein 5.3 g/dL (6.5-8.0)
[2024-04-16] MEDS: dexAMETHasone sod phosphate/NS 12 MG/50 ML PIGGYBACK 200 MG IV (09:51)
[2024-04-16] MEDS: diphenhydrAMINE HCL 50 MG/ML VIAL 25 MG IVPUSH (09:52)
[2024-04-16] MEDS: Acetaminophen 325 MG TABLET 650 MG PO (09:52)
[2024-04-16] MEDS: Heparin Sodium,Porcine Flush 500 UNIT/5 ML SYRINGE IVFLUSH (09:53)
--- NOTE | 2024-04-16 14:20 | MHC.HEMONC ---
C3D1 Zepzelca- Pt arrives via wheelchair by transport service. Pt feeling fatigued but ok. Color remains pale. Port accessed, good blood return. Labs drawn ANC 1.5, results reviewed with Dr Jesus. Ok to treat. Premeds given tylenol po, Dex IV, Benadryl IV, zofran IV. Zepzelca infused. Pt tolerated it well. Port de accessed with heparin. Summary given with next appointment and notes for rehab nurses. Pt departed via [employer] transport service.
--- NOTE | 2024-04-16 17:26 | PM.HEMONCPN ---
Medical Summary - Medical Summary Date of Service: 04/16/24 Chief complaint: Follow-up for: Small-cell carcinoma of the lung. Primary Care Provider: Eleazar Le III, MD Medical Summary: DIAGNOSIS: EXTENSIVE STAGE SMALL-CELL CARCINOMA OF THE LUNG. CURRENT THERAPY: STATUS POST 1 CYCLE OF CARBO AND ETOPOSIDE AN INPATIENT AT [facility] END OF SEPTEMBER. CYCLE 2 RECEIVED ON 11/04, with Atezolizumab. Completed 4 cycles of Atezo, carbo and etoposide, on 01/06. Had one cycle of maintenance atezolizumab on 01/23. Received 1 cycle of Lurbinectedin on 02/20/24. Second cycle on 03/26/2024. Here for cycle 3. Machine Container Washer Utilized?: No - Nepali Speaking Interval History Interval history: Anna Crawford is a 73 year old lady, here for a follow-up visit. She tells me she has beenbe doing quite well. She denies feeling tired lately. She received a unit of blood on 03/12. No fever chills or night sweats. No headache, nor dizziness. She has chest pain and trouble breathing. She denies cough nor sputum. She denies abdominal pain nausea vomiting heartburn indigestion. Bowels sometimes gets constipated. No gross blood in the stools. She is taking the stool softener. Appeite is good. She is trying to eat better. She has lost weight. No dysuria or hematuria. No joint pain or muscle pain. She denies any focal weakness. She does have a history of depression. She is on medications. No skin rashes but has dry skin. PREVIOUS HISTORY: She was in house end of last month, between 02/23 and 03/06/24. Discharge summary: Pt. is a 73-year-old female with a past medical history of COPD unspecified, breast cancer s/p partial mastectomy and radiation, small-cell lung cancer being treated with chemotherapy, last chemotherapy session was 5 days ago with a new agent, Lurbinectedin, and chronic anemia and HTN, who presented to the ED with confusion and lethargy for a few days. She is a poor historian due to confusion but does reports urinary symptoms including dysuria and frequency. She denies any hematuria, abdominal pain, shortness of breath, chest pain, nausea or vomiting. There was also a concern for neck pain while in the ED, upon further investigation the patient reported that this is chronic for her. Acute metabolic encephalopathy due to klebsiella urinary tract infection complicated by stenotrophomonas bacteremia, changed ceftriaxone to bactrim DS times one, then SS bid (GFR 25), for 14 days. (end mar 14, 2024). Seen by ID. No sepsis, pancytopenia is chronic due to chemotherapy. Picc removed 02/29/24, repeat culture from 03/01/24 still positive, BCx2 repeat 03/03/24, negative times 48 hours Echo-no evidence of vegetation DON on CKD 3 with metabolic acidosis Creatinine at baseline, bicarb stable, follow labs. Dose of soda bicarb reduced to once daily Small cell lung ca on Lurbinectedin, complicated by pancytopenia/chronic pain transfused 1 unit prbc 02/26/24, improved appropriately, hematocrit stable INTERIM HISTORY:: Patient received her 2nd cycle of carbo etoposide and atezolizumab on 11/04. She was subsequently admitted on 11/13 till 11/14. Discharge summary: 72-year-old female with a PMH significant for small cell lung cancer, chronic chest pain on chronic hydromorphone, breast cancer s/p partial mastectomy and radiation, HTN, CKD 4, and IBS/chronic diarrhea who presents [facility] the ED from SNF after routine labs found significant pancytopenia. Patient admitted to medical floor with a diagnosis of pancytopenia with CBC showing WBCs 0.8, H&H 5.7/17.7, neutrophils 6, Absolute neutrophil count: 80 cells/microliter likely secondary to chemotherapy for small-cell lung cancer on carboplatin, etoposide, and atezolizumab with last infusion 11/04, patient denied bleeding, no fevers, no cough or abdominal pain received 2 units of packed RBC hematocrit improved to 24.9, hemoglobin 8.3 for neutropenia received 2 dosages of Granix, since patient is hemodynamically stable and asymptomatic, other than chronic anterior chest wall pain, therefore being discharged back to rehab facility recommend to continue neutropenic precautions and monitor CBC, patient admitted to chronic diarrhea with no recent change, no worsening abdominal pain, no nausea or vomiting. In regard to hypertension recommend to continue home medications Coreg and hydralazine, noted to have no acute COPD exacerbation, and is continued on loperamide for her chronic diarrhea. She has been feeling better. She walks with the help of a walker. PRESENTING HISTORY: She was referred by Dr. Eleazar Le, on account of recent diagnosis of small-cell carcinoma of the lung. She was originally admitted to [facility] in August. She was discharged on 08/27 due to insurance issues, she was not able to follow-up with [facility]. She was referred to [facility] but could not make it to the appointment. On 09/17 she presented to [facility] ED with worsening shortness of breath. She also complained of severe left-sided chest pain. She had chronic diarrhea. Chest x-ray showed increased opacification of the left chest consistent with major consolidation of the left upper lobe with left pleural effusion. She had chest tube placed. She was placed on BiPAP given respiratory distress. She was admitted to [facility] 09/18/2023 with shortness of breath. CT scan revealed: No evidence of PE. New small right apical pneumothorax. Slightly improved aeration the left upper lobe with persistent masslike opacity and surrounding patchy and ground-glass opacities, consistent with known carcinoma. Narrowing of the left upper lobe bronchus and segmental airways likely due to encasement by the mask. Near resolution of the left pleural effusion status post left pleural drainage catheter. Increasing mediastinal and bilateral supraclavicular adenopathy concerning for progression of disease. Pleural fluid cytology was positive for small-cell carcinoma. She underwent chemotherapy with Carbo and etoposide while inpatient in mid September. PAST MEDICAL HISTORY: 1. HYPERTENSION. 2. DIABETES. 3. CKD. 4. ASTHMA. 5. HCV. 6. HISTORY OF RIGHT BREAST CANCER STATUS POST PARTIAL MASTECTOMY IN 2016. STATUS POST XRT COMPLETED [place] [address] Apple.. 7. Previous history of squamous cell carcinoma of the right lung. 8. Had COVID infection end of August. FAMILY HISTORY: Noncontributory. SOCIAL HISTORY: She did different or jobs. 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 She is not . She has 1 son. She smoked a pack-a-day starting age 18. She quit 2 years ago. She used to drink when she went out with her friends. Review of Systems - Constitutional Reports no additional constitutional complaints, Denies lack of energy, Denies malaise, Denies weight loss - Eyes Reports no additional eye complaints - ENT Reports no additional ear, nose, mouth, and throat complaints - Cardiovascular Reports no additional cardiovascular complaints - Respiratory Reports no additional respiratory complaints - Gastrointestinal Reports no additional gastrointestinal complaints - Genitourinary Reports no additional female genitourinary complaints - Musculoskeletal Reports no additional musculoskeletal complaints - Integumentary/Breasts Skin/Breast: Reports no additional skin complaints - Neurologic Reports no additional neurologic complaints - Psychiatric Reports no additional psychiatric complaints - Endocrine Reports no additional endocrine complaints - Hematologic/Lymphatic Reports no additional hematologic/lymphatic complaints - Allergic/Immunologic Reports no additional allergic/immunologic complaints [facility] Medical History: Medical History (Last Updated 03/10/24 @ 10:50 by Diane Hawkins RN) Bacteremia Breast cancer Cerebral infarction, unspecified Chronic diarrhea CKD (chronic kidney disease) Difficulty in walking, not elsewhere classified Essential (primary) hypertension HBP (high blood pressure) HTN (hypertension) Hyperlipidemia, unspecified Malignant neoplasm of unspecified part of unspecified bronchus or lung Muscle weakness (generalized) Need for assistance with personal care Other cerebral infarction due to occlusion or stenosis of small artery Other cirrhosis of liver Other irritable bowel syndrome Pancytopenia Personal history of malignant neoplasm of breast Personal history of nicotine dependence Unspecified asthma, uncomplicated Unspecified viral hepatitis C without hepatic coma Weakness Functional capacity: uses cane/walker Patient : No Surgical History: Surgical History (Last Updated 03/10/24 @ 11:44 by Diane Hawkins RN) H/O breast surgery H/O hernia repair History of total knee replacement Social History: Social History (Last Reviewed 03/01/24 @ 23:33 by Pepper Car MD) Living Situation History: Household Members: None Housing: Snf Do you presently have visiting nurse or other home services: Yes Alcohol History Details: 1. How often do you have a drink containing alcohol?: a. Never Tobacco History: Patient Tobacco Use Status: Former Tobacco user Tobacco use type: Cigarette Cigarette Packs Per Day: 1 Cigarettes Per Day: 20.0 Years Smoked: 50 e-Cigarette/Vaping Use: Never Used Second Hand Smoke Exposure: No Substance Use History: Use of substances other than those prescribed or required for medical reasons: No Substance Use Type: Marijuana Domestic Abuse History: Have you been hit, kicked, punched, or otherwise hurt by someone within the past year? If so, by whom?: No Do you feel safe in your current relationship?: Yes Advance Directives: Advance Directives Date on File: 10/25/23 Homicidal Assessment: Do you have thoughts of harming others: None Do you have a plan to hurt others: No Plan Nutrition Assessment: Patient : No Occupation Assessmet: service: No Current occupational status: retired Current occupational status: disabled Second hand tobacco smoke exposure: No Oncology Screenings - ECOG Performance Status ECOG Performance Status: 2 Home Medications and Allergies Current Medications: Current Medications Acetaminophen (Acetaminophen 325 Mg Tablet) 650 mg PO ONCE SADE Stop: 04/16/24 23:59 Last Admin: 04/16/24 09:52 Dose: 650 mg Diphenhydramine HCl (Diphenhydramine Hcl 50 Mg/Ml Vial) 25 mg IVPUSH ONCE SADE Stop: 04/16/24 23:59 Last Admin: 04/16/24 09:52 Dose: 25 mg Heparin Sodium (Porcine) (Heparin Sodium,Porcine Flush 500 Unit/5 Ml Syringe) 500 unit IVFLUSH ONCE SADE Stop: 04/16/24 23:59 Last Admin: 04/16/24 09:53 Dose: 500 unit Dexamethasone Sodium Phosphate (Decadron) 12 mg in 50 mls @ 200 mls/hr IV ONCE SADE Stop: 04/16/24 23:59 Last Infusion: 04/16/24 10:06 Dose: Infused Ondansetron HCl (Zofran) 16 mg in 50 mls @ 200 mls/hr IV ONCE SADE Stop: 04/16/24 23:59 Last Infusion: 04/16/24 10:06 Dose: Infused Lurbinectedin 4 mg/ Sodium (Chloride) 108 mls @ 108 mls/hr IV ONCE SADE Stop: 04/16/24 23:59 Last Infusion: 04/16/24 12:02 Dose: Infused Home Medications ?Medication ?Instructions ?Recorded ?Confirmed ?Type acetaminophen 325 mg tablet 650 mg PO Q6H PRN Pain/Fever 11/14/23 03/10/24 History bisacodyl 10 mg rectal suppository 10 mg RI DAILY PRN Constipation 11/14/23 03/10/24 History carvedilol 12.5 mg tablet 12.5 mg PO BID 11/14/23 03/10/24 History folic acid 1 mg tablet 1 mg PO DAILY 11/14/23 03/10/24 History hydralazine 100 mg tablet 100 mg PO BID 11/14/23 03/10/24 History hydromorphone 2 mg tablet 2 mg PO Q6H PRN Pain, Moderate 11/14/23 03/10/24 History hydromorphone 2 mg tablet 4 mg PO Q6H PRN Pain, Severe 11/14/23 03/10/24 History ipratropium 0.5 mg-albuterol 3 mg 3 ml inhalation Q4H PRN Shortness 11/14/23 03/10/24 History (2.5 mg base)/3 mL nebulization Of Breath soln magnesium hydroxide 400 mg/5 mL 30 ml PO DAILY PRN Constipation 11/14/23 03/10/24 History oral suspension (Milk of Magnesia) ondansetron HCl 8 mg tablet 8 mg PO Q8H PRN Nausea And Vomiting 11/14/23 03/10/24 History polyethylene glycol 3350 17 17 g PO DAILY 11/14/23 03/10/24 History gram/dose oral powder (Miralax) sennosides 8.6 mg tablet (senna) 17.2 mg PO BEDTIME 11/14/23 03/10/24 History sodium phosphates 19 gram-7 118 ml RI DAILY PRN Constipation 11/14/23 03/10/24 History gram/118 mL enema (Fleet Enema) thiamine HCl (vitamin B1) 100 mg 100 mg PO DAILY 11/14/23 03/10/24 History tablet trazodone 100 mg tablet 100 mg PO BEDTIME 11/14/23 03/10/24 History trazodone 50 mg tablet 50 mg PO BEDTIME 11/14/23 03/10/24 History acetaminophen 325 mg tablet 650 mg PO DAILY pain 02/24/24 03/10/24 History clonazepam 0.5 mg tablet 0.5 mg PO BID PRN Muscle Spasm 02/24/24 03/10/24 History melatonin 10 mg tablet 10 mg PO BEDTIME PRN Sleep 02/24/24 03/10/24 History morphine 15 mg tablet,extended 15 mg PO DAILY 02/24/24 03/10/24 History release umeclidinium 62.5 mcg-vilanterol 1 ea inhalation DAILY 02/24/24 03/10/24 History 25 mcg/actuation powdr for inhalation (Anoro Ellipta) Allergies Allergy/AdvReac Type Severity Reaction Status Date / Time carisoprodol [From Soma] Allergy Severe Hives Verified 03/10/24 11:44 codeine Allergy Severe Itching Verified 03/10/24 11:44 Exam Vital signs: Vital Signs Temp 98.7 F 04/16/24 08:19 Pulse 52 04/16/24 08:19 Resp 18 04/16/24 08:19 BP 120/60 04/16/24 08:19 Pulse Ox 97 04/16/24 08:19 O2 Del Method Room Air 04/16/24 08:19 O2 Flow Rate 2 01/07/24 08:11 Intake & Output 04/15/24 04/16/24 04/16/24 18:59 06:59 18:59 Intake Total Balance Intake: Intake, IV Amount Lurbinectedin 4 mg In 0.9 % 108 / 108 Sodium Chloride 100 ml @ 108 mls/hr IV ONCE SADE Rx#: [id number] Ondansetron HCL/NS 16 mg In 50 50 / 50 ml @ 200 mls/hr IV ONCE SADE Rx# :[id number] dexAMETHasone sod phosphate/NS 50 / 50 12 mg In 50 ml @ 200 mls/hr IV ONCE SADE Rx#:[id number] Other: Weight 59.3 kg [place] Weight in Grams 13493 Weight 59.3 kg BMI result Body Mass Index 25.5 - Constitutional Present: no acute distress - Routine HEENT Exam Head: Present: normal inspection Eye: Present: normal appearance ENT: Present: mucous membranes moist - Routine Neck Exam Present: full ROM - Routine Respiratory Exam Present: CTAB - Routine Cardiovascular Exam Cardiovascular: Present: RRR, S1, S2 - Routine Abdominal Exam Present: soft, nontender - Routine Rectal Exam Patient deferred: digital exam - Routine Extremities Exam Present: nontender - Routine Back/Spine/Pelvis Exam Back/Spine: Present: full ROM - Routine Skin Exam Present: intact - Routine Neurological Exam Present: alert, oriented X3 - Routine Psychiatric Exam Present: normal affect Data - Labs CBC & Chem 7: 04/16/24 08:40 04/16/24 08:40 Assessment and Plan Patient Active problem list reviewed?: Yes (1) Small cell lung cancer in adult Status: Acute Assessment and plan: This is a pleasant 72-year-old, with recent diagnosis of small-cell carcinoma of the lung, extensive stage disease. Patient previously has had: 1. Breast cancer. 2. Squamous cell carcinoma of the lung. 3. HCC. On 09/17 she presented to [facility] ED with worsening shortness of breath. She also complained of severe left-sided chest pain. She had chronic diarrhea. Chest x-ray showed increased opacification of the left chest consistent with major consolidation of the left upper lobe with left pleural effusion. She had chest tube placed. She was placed on BiPAP given respiratory distress. She was admitted to [facility] 09/18/2023 with shortness of breath. CT scan revealed: No evidence of PE. New small right apical pneumothorax. Slightly improved aeration the left upper lobe with persistent masslike opacity and surrounding patchy and ground-glass opacities, consistent with known carcinoma. Narrowing of the left upper lobe bronchus and segmental airways likely due to encasement by the mask. Near resolution of the left pleural effusion status post left pleural drainage catheter. Increasing mediastinal and bilateral supraclavicular adenopathy concerning for progression of disease. Pleural fluid cytology was positive for small-cell carcinoma. She underwent chemotherapy with Carbo and etoposide while inpatient in mid September. Between 09/19 and 09/21. She was then referred here for insurance reasons. I offered continuing her treatment here. She and her son were willing. She received cycle 2 with atezolizumab on 11/04. She ended up in the hospital on 11/13 with pancytopenia and neutropenic sepsis. l referred her for pulmonary evaluation for her advanced COPD. She is here for cycle 6. She feels, quite tired today. She is pancytopenic. CBC: WBC 3.3, HGB 5.1, HCT 72. She received 2 units of packed RBC, today. CT scan of the chest from 01/30, was read on 02/06 revealed: 1. No priors available for comparison. 2. Innumerable pulmonary nodules as described, measuring up to 7 mm in the right middle lobe, most consistent with metastatic disease. 3. Unilateral pulmonary edema left lung. There may be mild changes in the right lung. 4. Innumerable patchy groundglass opacities in both lungs, nonspecific. Suspect inflammatory and/or infectious etiologies, developing of areas of alveolar edema, or possibly drug reaction. Recommend correlation clinically. 5. Hepatic cirrhosis with enhancing and nonenhancing masses as described, likely related to metastatic disease. Additional findings in the spleen, and gastrohepatic ligament as discussed. Unfortunately her disease progressed in January. I shared the above results with her. I offered palliative care versus, further treatment. I talked about second-line therapy, choices include: 1. Topotecan days 1-5, Q 21 days. 2. Lurbinectin : 3.2/m2 mg IV over 60 minutes, Q 21 days. She prefers the latter, on account of the easier schedule. I shared details of the treatment, including potential side effects including hypersensitivity reaction, skin rash, nausea vomiting diarrhea, pancytopenia, risk of infection, need for antibiotics, and blood transfusion were all addressed with her. I gave her a handout on Lurbinectin. She received her 1st dose on 02/20/24. She was subsequently in house between 02/23 and 03/06/24. Her PICC line got infected and she required IV antibiotics. Her blood count was low: WBC 2.9, HGB 8, PLT 75, so l held her lurbinectedin. Meanwhile she will receive a unit of packed RBCs. She was given Dilaudid 2 mg for her neck pain. She received her 2nd cycle on 03/26. She tolerated it better. She is now here for cycle 3. PLAN: She will continue to receive this immunotherapy, for as long as it works. Will recheck imaging in a couple of months. She will return in 3 weeks for her next treatment. All her questions were answered to their satisfaction. Thank you, CC: Dr. David Le. - Time Spent With Patient Time Spent with Patient (in minutes): 25
--- NOTE | 2024-04-23 14:53 | MHC.HEMONC ---
Telephone call from Amirah at [facility]. She is asking for latest progress note from Dr Jesus with specific mention of pts gradual weight loss. Spoke with Dr Jesus, and addendum to last progress note done. Progress note faxed to [facility] at [phone] with attention to Amirah. Confirmation received.
--- NOTE | 2024-04-28 17:57 | MHC.HEMONC ---
Nurse took t/c from Amirah Christofer at [facility], to report pt has WBC of 1.5 today, as well as Hgb of 6.7 and Plt count of 43. she also reports pt is asymptomatic. Dr. Jesus was updated, nurse scheduled pt for blood transfusion x2 units PRBC on 04/30 at 9am, blood bank was notified, [facility] to arrange transportation for 9am arrival and 3pm pick-up. Pt to have type + screen drawn the morning of transfusion. Per Dr. Jesus, pt's next tx is not until 05/07, which will give her body time to recover her white count, though nursing will re-check CBC when pt is in for transfusion on 04/30. Amirah Beaulieu can be reached at [phone], ext. [phone].
[2024-04-30 09:38] LABS: MANUAL DIFF FLAG NO
[2024-04-30 09:41] VITALS: BP 113/60; PULSE 64; RESP 20; TEMP 36.2; O2SAT 95; BMI 25.5
[2024-04-30 09:54] LABS: Alanine Aminotransferase 9 U/L (0-31); Albumin Level 2.5 g/dL (3.5-5.0); Alkaline Phosphatase 82 U/L (39-117); Anion Gap 8 (12-20); Aspartate Amino Transferase 47 U/L (5-31); Bilirubin Total 0.4 mg/dL (0.0-1.0); Blood Urea Nitrogen 25 mg/dL (9-16); Calcium 8.6 mg/dL (8.4-10.2); Carbon Dioxide 18 mmol/L (22-29); Chloride 115 mmol/L (96-108); Creatinine Clr Calc Pharmacy 22.2; Estimated Glomerular Filt Rate 28; Glucose Random 97 mg/dL (60-115); Potassium 4.1 mmol/L (3.3-5.1); Sodium 137 mmol/L (135-145); Total Protein 5.3 g/dL (6.5-8.0)
[2024-04-30 09:57] LABS: Eosinophils Percent Auto 1.2 % (0-4); Hematocrit 25.6 % (37.0-47.0); Hemoglobin 8.3 g/dl (12.0-16.0); Imm Gran Abs Auto 0.01 X10*3/uL (0.00-0.03); Imm Gran Pct Auto 0.4 % (0.0-0.4); Lymphocytes Absolute Auto 0.9 X10*3/uL (1.2-4.9); Lymphocytes Percent Auto 32.7 % (20-40); Mean Corpuscular HGB Conc 32.4 g/dl (31.0-35.0); Mean Corpuscular Hemoglobin 29.7 pg (27.0-33.0); Mean Corpuscular Volume 91.8 fL (80.0-98.0); Mean Platelet Volume 10.3 fL (9.4-12.3); Monocytes Absolute Auto 0.3 X10*3/uL (0.1-1.2); Monocytes Percent Auto 10.4 % (2-11); Neutrophils Absolute Auto 1.4 x10*3/uL (2.0-8.3); Neutrophils Percent Auto 55.3 % (45-73); Red Blood Count 2.79 X10*6/uL (4.20-5.50); Red Cell Distribution Width 16.1 % (11.0-16.0); White Blood Count 2.6 X10*3/uL (4.8-10.8)
[2024-04-30 09:58] LABS: Platelet Count 74 X10*3/uL (160-400)
[2024-04-30 10:39] VITALS: BP 113/60; PULSE 64; RESP 20; TEMP 36.2
[2024-04-30] MEDS: Ondansetron ODT 8 MG TAB.RAPDIS TRANSLINGU (12:02)
[2024-04-30 12:03] VITALS: BP 116/55; PULSE 57; RESP 18; TEMP 36.4; O2SAT 96
[2024-04-30 12:27] VITALS: BP 118/59; PULSE 56; RESP 16; TEMP 36.7
--- NOTE | 2024-04-30 13:46 | MHC.HEMONC ---
Pt here for labs and possible transfusion. Port accessed. Good blood return. Labs and type/screen drawn. HGB 8.3. 1 unit of RBC ordered and transfused. Pt tolerated it well. Port de-accessed with heparin. Pt waiting [facility] at 3pm.
[2024-04-30 16:00] LABS: CDiff Gene PCR NEGATIVE (Negative)
[2024-05-07 08:04] VITALS: BP 141/66; PULSE 52; RESP 18; TEMP 36.4; O2SAT 98; BMI 25.5
[2024-05-07 08:35] LABS: MANUAL DIFF FLAG NO
[2024-05-07 08:40] LABS: Basophils Percent Auto 0.4 % (0-2); Eosinophils Absolute Auto 0.1 X10*3/uL (0.0-0.4); Eosinophils Percent Auto 1.9 % (0-4); Hematocrit 28.9 % (37.0-47.0); Hemoglobin 9.4 g/dl (12.0-16.0); Imm Gran Abs Auto 0.01 X10*3/uL (0.00-0.03); Imm Gran Pct Auto 0.4 % (0.0-0.4); Lymphocytes Absolute Auto 0.8 X10*3/uL (1.2-4.9); Lymphocytes Percent Auto 31.2 % (20-40); Mean Corpuscular HGB Conc 32.5 g/dl (31.0-35.0); Mean Corpuscular Hemoglobin 29.1 pg (27.0-33.0); Mean Corpuscular Volume 89.5 fL (80.0-98.0); Mean Platelet Volume 11.5 fL (9.4-12.3); Monocytes Absolute Auto 0.4 X10*3/uL (0.1-1.2); Monocytes Percent Auto 14.2 % (2-11); Neutrophils Absolute Auto 1.4 x10*3/uL (2.0-8.3); Neutrophils Percent Auto 51.9 % (45-73); Platelet Count 79 X10*3/uL (160-400); Red Blood Count 3.23 X10*6/uL (4.20-5.50); White Blood Count 2.6 X10*3/uL (4.8-10.8)
[2024-05-07 08:52] LABS: Alanine Aminotransferase 9 U/L (0-31); Albumin Level 2.3 g/dL (3.5-5.0); Alkaline Phosphatase 78 U/L (39-117); Anion Gap 8 (12-20); Aspartate Amino Transferase 49 U/L (5-31); Bilirubin Total 0.3 mg/dL (0.0-1.0); Blood Urea Nitrogen 31 mg/dL (9-16); Calcium 8.7 mg/dL (8.4-10.2); Carbon Dioxide 18 mmol/L (22-29); Chloride 116 mmol/L (96-108); Creatinine Clr Calc Pharmacy 18.4; Estimated Glomerular Filt Rate 23; Glucose Random 112 mg/dL (60-115); Potassium 3.8 mmol/L (3.3-5.1); Sodium 138 mmol/L (135-145)
[2024-05-07] MEDS: Acetaminophen 325 MG TABLET 650 MG PO (09:06)
[2024-05-07] MEDS: diphenhydrAMINE HCL 50 MG/ML VIAL 25 MG IVPUSH (09:07)
[2024-05-07] MEDS: dexAMETHasone sod phosphate/NS 12 MG/50 ML PIGGYBACK 200 MG IV (09:07)
[2024-05-07] MEDS: Heparin Sodium,Porcine Flush 500 UNIT/5 ML SYRINGE IVFLUSH (09:07)
--- NOTE | 2024-05-07 12:55 | MHC.HEMONC ---
c4 lurbinectidin today. Labs drawn and reviewed by Dr Jesus. OK to proceed, 500 cc NS given for elevated creatinine. premeds and lurbinectidin tolerated well. Pt aare of enxt appt, discharge packet provided.
--- NOTE | 2024-05-18 08:25 | MHC.HEMONC ---
RN from [facility] called to say Anna might have CXR as she is not herself and needs O2 due to hypoxia. She will come to ER if not improved or responding to treatment. I told her that is what we would recommend as well.
== END 2024-06-03 13:42 | disposition home or self-care (01) ==
LOC: HO.ONC 11:20
PROVIDERS: PCP Internal Medicine; Referring Provider Physician Assistant; Visit Provider Internal Medicine Medical Oncology
DX: Z51.11 Encounter for antineoplastic chemotherapy (principal); C34.90 Malignant neoplasm of unspecified part of unspecified bronchus or lung; J91.0 Malignant pleural effusion; J44.9 Chronic obstructive pulmonary disease, unspecified; Z85.3 Personal history of malignant neoplasm of breast
CPT/HCPCS: 36415; 36430; 36591; 80053; 82550; 82607; 82728; 82746; 83540; 83615; 84443; 85007; 85025; 85027; 85045; 86704; 86706; 86850; 86880; 86900; 86901; 86920; 86923; 87324; 87340; 87493; 94640; 96367; 96368; 96372; 96374; 96375; 96413; 96415; 96417; 99202; 99212; J1100; J1200; J1453; J1642; J2270; J2405; J2506; J9022; J9045; J9181; J9223; P9016

== ENCOUNTER 2024-05-18 10:59 | Inpatient (IN) | payer MEDICARE, SELFPAY ==
[2024-05-18] VITALS (16 sets, daily range): BP systolic 72–130; BP diastolic 40–92; PULSE 78–99; RESP 16–32; TEMP 36.4–36.9; O2SAT 88–99; BMI 25.5; BMI 26.9
--- NOTE | ~2024-05-18 | XR_ITS ---
CLINICAL HISTORY: wornseing oxygen saturation 1 view chest x-ray Comparison: CR/MI/SR - XR CHEST 1V - 05/18/24 11:32 EDT CR/MI/SR - XR CHEST 2V - 02/24/24 15:08 EST Findings: Right-sided port a catheter, tip of which is at the cavoatrial junction. Increased, severe left mid lung airspace opacity. Normal size heart. No acute fracture. IMPRESSION: Increased left lung pneumonia. Continued plain film follow-up is recommended to ensure resolution, and to exclude underlying neoplasm. This document has been electronically signed by: Reji Chung MD on 05/18/2024 17:05:35
--- NOTE | ~2024-05-18 | XR_ITS ---
CLINICAL HISTORY: line placement 1 view chest x-ray. Comparison: CR - XR CHEST 1V - 05/18/24 15:44 EDT Findings: Endotracheal tube is in satisfactory position about 3.5 cm above the bruna. NG tube is in the stomach. Right IJ port catheter tip is near the superior cavoatrial junction. Left lung consolidation appears mildly increased and most consistent with pneumonia. There is a possible small layering left pleural effusion. Cardiomediastinal silhouette is within normal limits. IMPRESSION: Findings as above. This document has been electronically signed by: Jose Francisco MD on 05/19/2024 03:00:54
--- NOTE | ~2024-05-18 | XR_ITS ---
EXAMINATION: XR CHEST CLINICAL INFORMATION: cough, dyspnea COMPARISON: 02/24/2024. TECHNIQUE: Frontal view of the chest was obtained. FINDINGS: Right chest port in place with tip in the superior right atrium. The cardiac, hilar, and mediastinal contours are normal. Dense calcification of the mitral annulus. Aortic mural calcification present. Lungs demonstrate opacity in the left midlung and perihilar region consistent with pneumonia. There is associated peribronchial thickening. This is new from previous. The right lung appears clear. No pneumothorax or effusion. No focal osseous or soft tissue abnormality. There are degenerative spinal changes. XR/XR chest 1V IMPRESSION: 1. Left lung perihilar consolidation consistent with pneumonia. No effusions. Electronically signed by: Abrahan Lyon MD 05/18/2024 12:55 PM EDT
--- NOTE | 2024-05-18 11:17 | ED_ITS ---
HPI - General Adult General Chief complaint: Altered Mental Status Stated complaint: WEAK,ABD PAIN,LETHARGY,HO LUNG CA FROM SNF PER EMS Time Seen by Provider: 05/18/24 11:17 History of Present Illness ED Provider: Heather HERNANDEZ narrative: The patient is a 73-year-old female who has been living at the [facility] for some time. She has a history of lung cancer in his still receiving chemotherapy. She was apparently also diagnosed with C diff colitis several weeks ago. [facility] the patient is normally alert and oriented x 4, and she has been receiving chemotherapy. However they state that she has been eating very little recently and has not been taking oral vancomycin that was prescribed for treatment of C diff. It is not clear how long ago she was diagnosed with C diff. The person I spoke with the said that she is on a long vancomycin taper and that person estimates that the patient was last diagnosed with C diff at least several weeks ago. Today the patient seemed much weaker and less responsive than usual. The person I spoke with that the [facility] says that her demeanor today was markedly different from her baseline of the yesterday she was much more alert. There is no report of any definite fever. There has been no vomiting. The patient is not very responsive and is not able to give much additional history. Related Data Home Medications ?Medication ?Instructions ?Recorded ?Confirmed acetaminophen 325 mg tablet 650 mg PO Q6H PRN Pain/Fever 11/14/23 05/18/24 bisacodyl 10 mg rectal suppository 10 mg AR DAILY PRN Constipation 11/14/23 05/18/24 carvedilol 12.5 mg tablet 12.5 mg PO BID 11/14/23 05/18/24 folic acid 1 mg tablet 1 mg PO DAILY 11/14/23 05/18/24 hydralazine 100 mg tablet 100 mg PO BID 11/14/23 05/18/24 hydromorphone 2 mg tablet 2 mg PO Q6H PRN Pain, Moderate 11/14/23 05/18/24 hydromorphone 2 mg tablet 4 mg PO Q6H PRN Pain, Severe 11/14/23 05/18/24 ipratropium 0.5 mg-albuterol 3 mg 3 ml inhalation Q4H PRN Shortness 11/14/23 05/18/24 (2.5 mg base)/3 mL nebulization Of Breath soln magnesium hydroxide 400 mg/5 mL 30 ml PO DAILY PRN Constipation 11/14/23 05/18/24 oral suspension (Milk of Magnesia) ondansetron HCl 8 mg tablet 8 mg PO Q8H PRN Nausea And Vomiting 11/14/23 05/18/24 polyethylene glycol 3350 17 17 g PO DAILY 11/14/23 05/18/24 gram/dose oral powder (Miralax) sennosides 8.6 mg tablet (senna) 17.2 mg PO BEDTIME 11/14/23 05/18/24 sodium phosphates 19 gram-7 118 ml AR DAILY PRN Constipation 11/14/23 05/18/24 gram/118 mL enema (Fleet Enema) thiamine HCl (vitamin B1) 100 mg 100 mg PO DAILY 11/14/23 05/18/24 tablet trazodone 100 mg tablet 100 mg PO BEDTIME 11/14/23 05/18/24 trazodone 50 mg tablet 50 mg PO BEDTIME 11/14/23 05/18/24 acetaminophen 325 mg tablet 650 mg PO DAILY pain 02/24/24 05/18/24 clonazepam 0.5 mg tablet 0.5 mg PO BEDTIME Muscle Spasm 02/24/24 05/18/24 melatonin 10 mg tablet 10 mg PO BEDTIME Sleep 02/24/24 05/18/24 fluticasone furoate 50 1 inh inhalation DAILY 05/18/24 05/18/24 mcg-vilanterol 25 mcg/dose inhalation powder (Breo Ellipta) sertraline 25 mg tablet 75 mg PO DAILY 05/18/24 05/18/24 vancomycin 125 mg capsule 125 mg PO Q48H 05/18/24 05/18/24 Previous Rx's ?Medication ?Instructions ?Recorded amlodipine 10 mg tablet 10 mg PO DAILY 90 days #90 tabs 03/06/24 Allergies Allergy/AdvReac Type Severity Reaction Status Date / Time carisoprodol [From Soma] Allergy Severe Hives Verified 05/18/24 11:41 codeine Allergy Severe Itching Verified 05/18/24 11:41 Review of Systems 2 Review of Systems: Yes Unobtainable due to mental status [facility] Past Medical History Medical History (Updated 03/10/25 @ 16:15 by BRANDON Chang) Diabetes Weakness Difficulty in walking, not elsewhere classified Muscle weakness (generalized) Need for assistance with personal care Other cirrhosis of liver Other cerebral infarction due to occlusion or stenosis of small artery Cerebral infarction, unspecified Unspecified viral hepatitis C without hepatic coma Personal history of nicotine dependence Unspecified asthma, uncomplicated Other irritable bowel syndrome Personal history of malignant neoplasm of breast Hyperlipidemia, unspecified Essential (primary) hypertension Malignant neoplasm of unspecified part of unspecified bronchus or lung Bacteremia Pancytopenia Chronic diarrhea CKD (chronic kidney disease) Breast cancer HTN (hypertension) HBP (high blood pressure) Surgical History H/O hernia repair H/O breast surgery History of total knee replacement Social History Social History Household Members: Unknown / Unable to assess Housing: Assisted Living Facility Do you presently have visiting nurse or other home services: Yes Alcohol intake: never Comment: medicated Patient Tobacco Use Status: Former Tobacco user Tobacco use type: Cigarette Cigarette Packs Per Day: 1 Cigarettes Per Day: 20.0 Years Smoked: 50 e-Cigarette/Vaping Use: Never Used Second Hand Smoke Exposure: No Use of substances other than those prescribed or required for medical reasons: Unable to respond Substance Use Type: Marijuana Currently Displaying Signs/Symptoms of Drug Intoxication Withdrawal: No Spiritism Healthcare Practices: unable to respond 2/2 AMS Advance Directives: Yes Advance Directives on File: Yes Advance Directives Date on File: 10/25/23 Do you have a plan to hurt others: No Plan Recently lost weight without trying: Unsure Nutrition Risks: On aspiration precautions and Poor intake 0-25% >4 days Patient : No : No service: No Current occupational status: retired and disabled Physical Exam ED Vital Signs: Vital Signs - 24 hr 05/18/24 11:16 05/18/24 15:57 05/18/24 16:09 Temperature 98.5 F Pulse Rate 80 90 91 Respiratory Rate 16 18 16 Blood Pressure 93/51 L 72/49 L 130/61 Pulse Oximetry 94 95 93 Oxygen Delivery Method Nasal Cannula Nasal Cannula Nasal Cannula Oxygen Flow Rate 2 2 05/18/24 16:19 05/18/24 17:03 Temperature Pulse Rate 91 Respiratory Rate 24 H 26 H Blood Pressure Pulse Oximetry Oxygen Delivery Method Oxygen Flow Rate BMI result Body Mass Index 25.5 Const Other: The patient is a very frail looking, chronically ill-appearing 73-year-old. She responded with one-word answers to any questions. She follows some commands but not others. She coughed occasionally. She looked very chronically ill and very frail. She does not appear in overt pain or respiratory distress however she seemed very sensitive to any touching. HENMT Other: Face seems symmetrical. Mucous membranes seemed dry. Eyes Other: Pupils are round equal, conjunctivae are clear, extraocular movements intact Neck Other: No obvious JVD, no swelling Resp Other: Some slight crackles and wheezes bilaterally and diffusely. No increased work of breathing. Cardio Rate: regular rate Rhythm: regular rhythm Heart sounds: S1 normal heart sound present and S2 normal heart sound present GI Other: The abdomen is soft but diffusely tender to the touch. Skin Other: Skin is pale and dry Neuro Other: The patient is somnolent. She responds to questions with occasional one-word answers. She follows some commands but not all commands. There was no obvious facial asymmetry. Her speech when she speaks seems to be without dysarthria. She is able to move all of her extremities very weakly. Extrem Other: No peripheral edema. The feet are well-perfused. Good pedal pulses. No calf asymmetry or tenderness Medications Administered Generic Name Dose Route Start Last Admin Trade Name Freq PRN Reason Stop Dose Admin Albuterol/Ipratropium 3 ml 05/18/24 16:05/18/24 20:18 Albuterol/Iprat 2.5/0.5mg 3 Ml Ampul.Neb INHALE 3 ml RQ4H WHILE AWAKE SADE Administration Dextrose 25 gm 05/18/24 16:09 05/18/24 20:18 Dextrose 50 % 25 Gm/50 Ml Syringe IVPUSH 25 gm Q15M PRN Administration per Hypoglycemia Standing Ord. Protocol Heparin Sodium (Porcine) 5,000 unit 05/18/24 19:00 05/18/24 20:10 Heparin Sodium,Porcine 5,000 Unit/Ml Vial SUBCUT Not Given Q8H SADE Sodium Chloride 3 ml 05/18/24 16:00 05/18/24 19:47 0.9 % Sodium Chloride Flush 3 Ml Syringe IVFLUSH 3 ml QSHIFT SADE Administration Discontinued Medications Generic Name Dose Route Start Last Admin Trade Name Freq PRN Reason Stop Dose Admin Piperacillin Sod/Tazobactam 100 mls @ 200 mls/hr 05/18/24 12:50 05/18/24 14:38 Sod 4.5 gm/ Sodium Chloride IV 05/18/24 13:19 Infused ONCE ONE Infusion Vancomycin HCl 1,500 mg/ 500 mls @ 333.333 mls/hr 05/18/24 12:51 05/18/24 15:22 Sodium Chloride IV 05/18/24 14:20 Infused ONCE ONE Infusion Lactated Ringer's 1,000 mls @ 999 mls/hr 05/18/24 13:30 05/18/24 15:22 Lr IV 05/18/24 14:30 Infused .Q1H1M SADE Infusion Lactated Ringer's 1,000 mls @ 999 mls/hr 05/18/24 15:30 05/18/24 17:40 Lr IV 05/18/24 16:30 Infused .Q1H1M SADE Infusion Insulin Human Lispro 0 unit 05/18/24 16:30 05/18/24 20:11 Insulin Lispro 100 Unit/Ml 3 Ml Vial SUBCUT Not Given QIDACHS SADE Protocol Sodium Bicarbonate 50 meq 05/18/24 20:53 05/18/24 21:21 Sodium Bicarbonate 8.4% 50 Meq/50 Ml Syringe IVPUSH 05/18/24 20:54 50 meq ONCE ONE Administration Medical Decision Making Medical Decision Making [facility] Narrative: The patient is a 73-year-old woman who has been living at the [facility]. She has been receiving chemotherapy for small-cell lung cancer. The patient apparently seemed much less alert today and was sent to the emergency room. Here she did not seem febrile but did have an oxygen requirement. She looked quite ill. A chest x-ray showed a left-sided infiltrate. Her lactate was normal. She was given Zosyn and vancomycin and IV fluids. While in the emergency department her oxygen saturations seemed to deteriorate. She required additional respiratory support. I was worried that perhaps she had received too much in the way of IV fluids. However a repeat chest x-ray suggested that she was having a worsening of her pneumonia rather than developing pulmonary edema as a result of fluid administration. Her respiratory support increased to high-flow nasal cannula. The hospitalist service has been consulted for hospitalization before her oxygenation became more of a problem. Ultimately the hospitalist team felt that the patient look too unwell even on high-flow nasal cannula for admission to the medical floor and so the ICU was consulted and the patient was admitted for further care. The patient had isolated episodes of low blood pressures without ongoing hypotension. She seemed confused in a manner consistent with a metabolic encephalopathy likely secondary to her acute illness. I spoke with her son about her condition for. He ultimately arrived at the emergency room to see her. Lab Data 05/18/24 12:07 05/18/24 12:07 Labs: Lab Results 05/18/24 05/18/24 05/18/24 Range/Units 12:07 12:29 14:13 WBC 2.8 L (4.8-10.8) X10*3/uL RBC 2.96 L (4.20-5.50) X10*6/uL Hgb 8.4 L (12.0-16.0) g/dl Hct 27.0 L (37.0-47.0) % MCV 91.2 (80.0-98.0) fL MCH 28.4 (27.0-33.0) pg MCHC 31.1 (31.0-35.0) g/dl RDW 17.1 H (11.0-16.0) % Plt Count 45 L D (160-400) X10*3/uL MPV 11.6 (9.4-12.3) fL Immature Gran % (Auto) Cancelled Neut % (Auto) Cancelled Lymph % (Auto) Cancelled Mclennan % (Auto) Cancelled Eos % (Auto) Cancelled Baso % (Auto) Cancelled Lymph # (Auto) Cancelled Mclennan # (Auto) Cancelled Eos # (Auto) Cancelled Baso # (Auto) Cancelled Abs Immat Gran (auto) Cancelled Absolute Neuts (auto) Cancelled Absolute Nucleated RBC 0.000 (0.0-0.012) X10*3/uL Nucleated RBC % (auto) 0.0 (0.0-0.2) /100WBC Neutrophils % (Manual) 56 (45-73) % Band Neutrophils % 16 H (3-5) % Lymphocytes % (Manual) 17 L (20-40) % Atypical Lymphs % (Man) 2 (0-6) % Monocytes % (Manual) 7 (2-11) % Metamyelocytes % 2 % Abs Neuts (Manual) 2.0 (2.0-8.3) X10*3/uL Lymphocytes # (Manual) 0.5 L (1.2-4.9) X10*3/uL Atyp Lymphs # (Manual) 0.1 x10*3/uL Monocytes # (Manual) 0.2 (0.1-1.2) X10*3/uL Metamyelocytes # 0.1 X10*3/uL Toxic Vacuolation PRESENT Dohle Bodies PRESENT Platelet Estimate DECREASED (NORMAL) Plt Morphology Comment NORM RBC Morphology NOTED Microcytosis 1+ (5-14) /OIF Macrocytosis 1+ (5-14) /OIF Spherocytes 1+ (0-2) /OIF PT 20.0 H D (10.9-12.4) SEC INR 1.7 H (0.9-1.1) ABG pH at Pt Temp (7.35-7.45) ABG pCO2 at Pt Temp (32-45) mmHg ABG pO2 at Pt Temp (83-108) mmHg ABG HCO3 (22-26) mmol/L ABG Base Excess (Actual) mmol/L VBG pH 7.37 (7.32-7.43) VBG pCO2 20 mmHg VBG pO2 194 mmHg VBG HCO3 12 L (22-26) mmol/L VBG O2 Saturation TNP VBG Base Excess -11.9 mmol/L Sodium 142 (135-145) mmol/L Potassium 4.8 D (3.3-5.1) mmol/L Chloride 119 H (96-108) mmol/L Carbon Dioxide 16 L (22-29) mmol/L Anion Gap 12 (12-20) BUN 42 H (9-16) mg/dL Creatinine 2.29 H (0.5-1.4) mg/dL Estim Creat Clear Calc 16.5 Estimated GFR 21 Random Glucose 79 (60-115) mg/dL Lactic Acid 1.7 (0.5-2.0) mmol/L Calcium 9.1 (8.4-10.2) mg/dL Magnesium 1.8 (1.6-2.6) mg/dL Total Bilirubin 0.9 (0.0-1.0) mg/dL Direct Bilirubin 0.5 (0.0-0.5) mg/dL AST 59 H (5-31) U/L ALT 18 (0-31) U/L Alkaline Phosphatase 103 (39-117) U/L Troponin I High Sens 74.7 H* D 63.8 H* (<3.5-17.0) ng/L C-Reactive Protein 22.71 H (< or = 0.50) mg/dL B-Natriuretic Peptide 710 H (<100) pg/mL Total Protein 5.3 L (6.5-8.0) g/dL Albumin 2.3 L (3.5-5.0) g/dL Lipase < 4 L (8-78) U/L Procalcitonin 15.12 ng/mL Influenza Type A (PCR) NEGATIVE (Negative) Influenza Type B (PCR) NEGATIVE (Negative) RSV RNA Qual (PCR) NEGATIVE (Negative) SARS-CoV-2 RNA (RT-PCR) NEGATIVE (Negative) 05/18/24 Range/Units 18:41 WBC (4.8-10.8) X10*3/uL RBC (4.20-5.50) X10*6/uL Hgb (12.0-16.0) g/dl Hct (37.0-47.0) % MCV (80.0-98.0) fL MCH (27.0-33.0) pg MCHC (31.0-35.0) g/dl RDW (11.0-16.0) % Plt Count (160-400) X10*3/uL MPV (9.4-12.3) fL Immature Gran % (Auto) Neut % (Auto) Lymph % (Auto) Mclennan % (Auto) Eos % (Auto) Baso % (Auto) Lymph # (Auto) Mclennan # (Auto) Eos # (Auto) Baso # (Auto) Abs Immat Gran (auto) Absolute Neuts (auto) Absolute Nucleated RBC (0.0-0.012) X10*3/uL Nucleated RBC % (auto) (0.0-0.2) /100WBC Neutrophils % (Manual) (45-73) % Band Neutrophils % (3-5) % Lymphocytes % (Manual) (20-40) % Atypical Lymphs % (Man) (0-6) % Monocytes % (Manual) (2-11) % Metamyelocytes % % Abs Neuts (Manual) (2.0-8.3) X10*3/uL Lymphocytes # (Manual) (1.2-4.9) X10*3/uL Atyp Lymphs # (Manual) x10*3/uL Monocytes # (Manual) (0.1-1.2) X10*3/uL Metamyelocytes # X10*3/uL Toxic Vacuolation Dohle Bodies Platelet Estimate (NORMAL) Plt Morphology Comment RBC Morphology Microcytosis /OIF Macrocytosis /OIF Spherocytes /OIF PT (10.9-12.4) SEC INR (0.9-1.1) ABG pH at Pt Temp 7.27 L (7.35-7.45) ABG pCO2 at Pt Temp 38 (32-45) mmHg ABG pO2 at Pt Temp 136 H (83-108) mmHg ABG HCO3 18 L (22-26) mmol/L ABG Base Excess (Actual) -7.7 mmol/L VBG pH (7.32-7.43) VBG pCO2 mmHg VBG pO2 mmHg VBG HCO3 (22-26) mmol/L VBG O2 Saturation VBG Base Excess mmol/L Sodium (135-145) mmol/L Potassium (3.3-5.1) mmol/L Chloride (96-108) mmol/L Carbon Dioxide (22-29) mmol/L Anion Gap (12-20) BUN (9-16) mg/dL Creatinine (0.5-1.4) mg/dL Estim Creat Clear Calc Estimated GFR Random Glucose (60-115) mg/dL Lactic Acid (0.5-2.0) mmol/L Calcium (8.4-10.2) mg/dL Magnesium (1.6-2.6) mg/dL Total Bilirubin (0.0-1.0) mg/dL Direct Bilirubin (0.0-0.5) mg/dL AST (5-31) U/L ALT (0-31) U/L Alkaline Phosphatase (39-117) U/L Troponin I High Sens (<3.5-17.0) ng/L C-Reactive Protein (< or = 0.50) mg/dL B-Natriuretic Peptide (<100) pg/mL Total Protein (6.5-8.0) g/dL Albumin (3.5-5.0) g/dL Lipase (8-78) U/L Procalcitonin ng/mL Influenza Type A (PCR) (Negative) Influenza Type B (PCR) (Negative) RSV RNA Qual (PCR) (Negative) SARS-CoV-2 RNA (RT-PCR) (Negative) Independent Interpretation I performed an independent interpretation of an: EKG Interpretation: EKG at 12:25 shows normal sinus rhythm at 82 beats per minute. No definite acute ischemic changes. No significant change from previous. Critical Care Time Critical Care Time Critical Care Time: Yes Total Critical Care Time: 35 Attestation: The patient was critically ill with a high probability of imminent or life- threatening deterioration. ?I spent greater than 30 minutes of discontinuous time evaluating the patient, delivering critical care at the bedside, discussing evaluating data with consultants. ?Critical care time does not include time spent performing separately billable procedures or teaching. ?Time spent performing critical care with 35 minutes. Discharge Plan Discharge Clinical Impression: Pneumonia Patient Disposition: Admitted As Inpatient
--- NOTE | 2024-05-18 11:32 | ECG_ITS ---
Test Reason : weakness Blood Pressure : */* mmHG Vent. Rate : 82 BPM Atrial Rate : 82 BPM P-R Int : 158 ms QRS Dur : 84 ms QT Int : 392 ms P-R-T Axes : 74 39 46 degrees QTcB Int : 457 ms Normal sinus rhythm Possible Left atrial enlargement cannot exclude Septal infarct (cited on or before Nonspecific ST and T wave abnormality Abnormal ECG When compared with ECG of 24-Feb-2024 15:28, No significant changes seen Referred By: Osmel Romero Electronically Signed By: MATEO EWING
[2024-05-18 12:29] LABS: Hemoglobin 8.4 g/dl (12.0-16.0); Mean Corpuscular HGB Conc 31.1 g/dl (31.0-35.0); Mean Corpuscular Hemoglobin 28.4 pg (27.0-33.0); Mean Corpuscular Volume 91.2 fL (80.0-98.0); Mean Platelet Volume 11.6 fL (9.4-12.3); Red Blood Count 2.96 X10*6/uL (4.20-5.50); Red Cell Distribution Width 17.1 % (11.0-16.0); White Blood Count 2.8 X10*3/uL (4.8-10.8)
[2024-05-18 12:32] LABS: VBG Base Excess -11.9 mmol/L; VBG HCO3 12 mmol/L (22-26); VBG pCO2 20 mmHg; VBG pH 7.37 (7.32-7.43); VBG pO2 194 mmHg
[2024-05-18 12:33] LABS: INTERNATIONAL NORM RATIO 1.7 (0.9-1.1); Platelet Count 45 X10*3/uL (160-400)
[2024-05-18 12:35] LABS: Venous Blood Gas Refer to POC result
[2024-05-18 12:40] LABS: Lactic Acid 1.7 mmol/L (0.5-2.0)
[2024-05-18 12:44] LABS: B Type Natriuretic Peptide 710 pg/mL (<100)
[2024-05-18 12:45] LABS: Alanine Aminotransferase 18 U/L (0-31); Albumin Level 2.3 g/dL (3.5-5.0); Alkaline Phosphatase 103 U/L (39-117); Anion Gap 12 (12-20); Aspartate Amino Transferase 59 U/L (5-31); Bilirubin Direct 0.5 mg/dL (0.0-0.5); Bilirubin Total 0.9 mg/dL (0.0-1.0); Blood Urea Nitrogen 42 mg/dL (9-16); C Reactive Protein 22.71 mg/dL (< or = 0.50); Calcium 9.1 mg/dL (8.4-10.2); Carbon Dioxide 16 mmol/L (22-29); Chloride 119 mmol/L (96-108); Creatinine Clr Calc Pharmacy 16.5; Estimated Glomerular Filt Rate 21; Glucose Random 79 mg/dL (60-115); Lipase < 4 U/L (8-78); Magnesium 1.8 mg/dL (1.6-2.6); Potassium 4.8 mmol/L (3.3-5.1); Sodium 142 mmol/L (135-145); Total Protein 5.3 g/dL (6.5-8.0)
[2024-05-18 12:49] LABS: Troponin-I High Sensitivity 74.7 ng/L (<3.5-17.0)
[2024-05-18 12:57] LABS: Influenza A PCR NEGATIVE (Negative); Influenza B PCR NEGATIVE (Negative); Resp Syncy Virus RNA Qual PCR NEGATIVE (Negative); SARS COV2 PCR INHOUSE NEGATIVE (Negative)
--- OUTSIDE RECORDS SUMMARY | 2024-05-18 13:03 | XMS_ITS | Encounter Summary ---
Author Organization [facility] Address [address] [place] [address] Care Team Providers Care Training Associate Name Role Phone Kranthi Macdonald MD Primary Care Provider [phone]- [phone] Encounter Details Date Type Department Care Team (Late st Contact Info) Description 03/21/2024 Lab Requisition [facility] - Main Lab [address] [facility] [place] [address] Kranthi Macdonald MD [address] [place] [id number] Weakness; Type 2 diabetes mellitus without complications (CMS/HCC); Chronic kidney disease, unspecified; Fever, unspecified Social History Tobacco Use Types Packs/Day Years Used Date Smoking Tobacco: Every Day Cigarettes 0.5 59.4 Started: 1966 Smokeless Tobacco: Never Alcohol Use Standard Drinks/Week Comments No 0 (1 standard drink = 0.6 oz pur e alcohol) Comments Unknown Sex and Gender Information Value Date Recorded Sex Assigned at Not on file Legal Sex Female 6:12 PM EST Gender Identity Not on file Sexual Orientation Not on file documented as of this encounter Plan of Treatment Not on file documented as of this encounter Procedures Procedure Name Priority Date/Time Associated Diagnosis Comments COMPLETE BLOOD COUNT STAT 03/21/2024 11:30 AM EST Weakness Type 2 diabetes mellitus without complications (CMS/HCC) Chronic kidney disease, unspecified Fever, unspecified THYROID STIMULATING HORMONE STAT 03/21/2024 11:30 AM EST Weakness Type 2 diabetes mellitus without complications (CMS/HCC) Chronic kidney disease, unspecified Fever, unspecified COMPREHENSIVE METABOLIC PANEL STAT 03/21/2024 11:30 AM EST Weakness Type 2 diabetes mellitus without complications (CMS/HCC) Chronic kidney disease, unspecified Fever, unspecified documented in this encounter Results * Thyroid stimulating hormone (03/21/2024 11:30 AM EST) TSH 2.07 0.40 - 4.00 mcIU/mL LAB CHEMISTRY METHOD 03/21/2024 12:56 PM EST [facility] Blood Venous blood specimen / Unknown Venipuncture / Unknown 03/21/2024 11:30 AM EST 03/21/2024 12:01 PM EST Kranthi Macdonald MD LAB BLOOD ORDERABLES Final Result [facility] [address] [place] [address], * (ABNORMAL) Comprehensive metabolic panel (03/21/2024 11:30 AM EST) Sodium 143 133 - 145 mmol/L LAB CHEMISTRY METHOD 03/21/2024 12:26 PM [facility] Potassium 4.3 3.5 - 5.5 mmol/L LAB CHEMISTRY METHOD 03/21/2024 12:26 PM [facility] Chloride 119(H) 96 - 110 mmol/L LAB CHEMISTRY METHOD 03/21/2024 12:26 PM [facility] CO2 21 21 - 32 mmol/L LAB CHEMISTRY METHOD 03/21/2024 12:26 PM [facility] Anion Gap 3 3 - 11 LAB CHEMISTRY METHOD 03/21/2024 12:26 PM [facility] Glucose 82 70 - 100 mg/dL LAB CHEMISTRY METHOD 03/21/2024 12:26 PM [facility] BUN 29(H) 5 - 25 mg/dL LAB CHEMISTRY METHOD 03/21/2024 12:26 PM [facility] Creatinine 2.36(H) 0.50 - 1.10 mg/dL LAB CHEMISTRY METHOD 03/21/2024 12:26 PM [facility] eGFR 21(L) >=60 mL/min/1. 73m2 LAB CHEMISTRY METHOD 03/21/2024 12:26 PM [facility] Comment:Calculation based on the??Chronic Kidney Disease Epidemiology Collaboration (CKD-EPI) equation refit??without adjustment for race. BUN/Creatinine Ratio 12.3 LAB CHEMISTRY METHOD 03/21/2024 12:26 PM [facility] Calcium 8.7 8.5 - 10.5 mg/dL LAB CHEMISTRY METHOD 03/21/2024 12:26 PM [facility] AST (SGOT) 20 10 - 42 unit/L LAB CHEMISTRY METHOD 03/21/2024 12:26 PM [facility] ALT (SGPT) 9(L) 10 - 60 unit/L LAB CHEMISTRY METHOD 03/21/2024 12:26 PM [facility] Alkaline Phosphatase 82 42 - 121 unit/L LAB CHEMISTRY METHOD 03/21/2024 12:26 PM [facility] Total Protein 4.9(L) 6.0 - 8.0 g/dL LAB CHEMISTRY METHOD 03/21/2024 12:26 PM [facility] Albumin 2.1(L) 3.2 - 5.0 g/dL LAB CHEMISTRY METHOD 03/21/2024 12:26 PM [facility] Total Bilirubin 0.3 0.0 - 1.4 mg/dL LAB CHEMISTRY METHOD 03/21/2024 12:26 PM [facility] Blood Venous blood specimen / Unknown Venipuncture / Unknown 03/21/2024 11:30 AM EST 03/21/2024 12:01 PM EST us Kranthi Macdonald MD LAB BLOOD ORDERABLES Final Result [facility] [address] [place] [address], * (ABNORMAL) Complete blood count (03/21/2024 11:30 AM EST) [facility] Signature WBC 2.3(L) 4.8 - 10.8 K/mcL LAB HEMETOLOGY METHOD 03/21/2024 12:49 PM EST [facility] RBC 2.80(L) 3.80 - 4.80 M/mcL LAB HEMETOLOGY METHOD 03/21/2024 12:49 PM [facility] Hemoglobin 8.2(L) 11.5 - 16.0 g/dL LAB HEMETOLOGY METHOD 03/21/2024 12:49 PM [facility] Hematocrit 27.3(L) 35.0 - 47.0 % LAB HEMETOLOGY METHOD 03/21/2024 12:49 PM [facility] MCV 96.8 79.0 - 98.0 FL LAB HEMETOLOGY METHOD 03/21/2024 12:49 PM [facility] MCH 29.1 27.0 - 32.0 pcg LAB HEMETOLOGY METHOD 03/21/2024 12:49 PM [facility] MCHC 30.0(L) 32.0 - 37.0 g/dL LAB HEMETOLOGY METHOD 03/21/2024 12:49 PM [facility] RDW 17.8(H) 11.0 - 15.0 % LAB HEMETOLOGY METHOD 03/21/2024 12:49 PM [facility] Platelets 50(L) 130 - 400 K/mcL LAB HEMETOLOGY METHOD 03/21/2024 12:49 PM [facility] Comment:previously verified by slide MPV 10.9 7.0 - 11.0 FL LAB HEMETOLOGY METHOD 03/21/2024 12:49 PM EST [facility] NRBC 0.0 <1.0 % LAB HEMETOLOGY METHOD 03/21/2024 12:49 PM EST [facility] NRBC Absolute 0.00 <0.10 K/mcL LAB HEMETOLOGY METHOD 03/21/2024 12:49 PM EST [facility] Blood Venous blood specimen / Unknown Venipuncture / Unknown 03/21/2024 11:30 AM EST 03/21/2024 12:01 PM EST us Kranthi Macdonald MD LAB BLOOD ORDERABLES Final Result [facility] [address] [place] [address], documented in this encounter Visit Diagnoses Diagnosis Weakness Other malaise and fatigue Type 2 diabetes mellitus without complications (CMS/HCC) Chronic kidney disease, unspecified Fever, unspecified documented in this encounter Additional Health Concerns Infection Onset Date Last Indicated Resolved Time C. Diff Rule-Out Infection 03/21/2024 03/21/2024 0 03/21/2024 11:27 AM EST C. difficile 03/21/2024 03/21/2024 04/14/2024 7:04 PM EST documented as of this encounter Care Teams Training Associate Relationship Specialty Start Date End Date Kranthi Macdonald MD [address] [place] [id number] PCP - General Internal Medicine 03/10/24 documented as of this encounter
--- OUTSIDE RECORDS SUMMARY | 2024-05-18 13:03 | XMS_ITS | Encounter Summary ---
Author Organization [facility] Address [address] [place] [address] Care Team Providers Care Glove Operator Name Role Phone Kranthi Macdonald MD Primary Care Provider [phone] Encounter Details Date Type Department Care Team (Late st Contact Info) Description 03/23/2024 Lab Requisition [facility] - Main Lab [address] [facility] [place] [address] Kranthi Macdonald MD [address] [place] [address] Chronic kidney disease, unspecified; Type 2 diabetes mellitus without complications (CMS/HCC) Social History Tobacco Use Types Packs/Day Years [...] Date/Time Associated Diagnosis Comments COMPLETE BLOOD COUNT Routine 03/24/2024 8:00 AM EST Chronic kidney disease, unspecified Type 2 diabetes mellitus without complications (CMS/HCC) COMPREHENSIVE METABOLIC PANEL Routine 03/24/2024 8:00 AM EST Chronic kidney disease, unspecified Type 2 diabetes mellitus without complications (CMS/HCC) documented in this encounter Results * (ABNORMAL) Comprehensive metabolic panel (03/24/2024 8:00 AM EST) Sodium 142 133 - 145 mmol/L LAB CHEMISTRY METHOD 03/24/2024 11:08 AM [facility] Potassium 4.3 3.5 - 5.5 mmol/L LAB CHEMISTRY METHOD 03/24/2024 11:08 AM [facility] Chloride 117(H) 96 - 110 mmol/L LAB CHEMISTRY METHOD 03/24/2024 11:08 AM [facility] CO2 20(L) 21 - 32 mmol/L LAB CHEMISTRY METHOD 03/24/2024 11:08 AM [facility] Anion Gap 5 3 - 11 LAB CHEMISTRY METHOD 03/24/2024 11:08 AM [facility] Glucose 84 70 - 100 mg/dL LAB CHEMISTRY METHOD 03/24/2024 11:08 AM [facility] BUN 25 5 - 25 mg/dL LAB CHEMISTRY METHOD 03/24/2024 11:08 AM [facility] Creatinine 2.18(H) 0.50 - 1.10 mg/dL LAB CHEMISTRY METHOD 03/24/2024 11:08 AM [facility] eGFR 23(L) >=60 mL/min/1. 73m2 LAB CHEMISTRY METHOD 03/24/2024 11:08 AM [facility] Comment:Calculation based on the??Chronic Kidney Disease Epidemiology Collaboration (CKD-EPI) equation refit??without adjustment for race. BUN/Creatinine Ratio 11.5 LAB CHEMISTRY METHOD 03/24/2024 11:08 AM [facility] Calcium 9.0 8.5 - 10.5 mg/dL LAB CHEMISTRY METHOD 03/24/2024 11:08 AM [facility] AST (SGOT) 29 10 - 42 unit/L LAB CHEMISTRY METHOD 03/24/2024 11:08 AM [facility] ALT (SGPT) 10 10 - 60 unit/L LAB CHEMISTRY METHOD 03/24/2024 11:08 AM EST [facility] Alkaline Phosphatase 85 42 - 121 unit/L LAB CHEMISTRY METHOD 03/24/2024 11:08 AM [facility] Total Protein 5.2(L) 6.0 - 8.0 g/dL LAB CHEMISTRY METHOD 03/24/2024 11:08 AM [facility] Albumin 2.2(L) 3.2 - 5.0 g/dL LAB CHEMISTRY METHOD 03/24/2024 11:08 AM [facility] Total Bilirubin 0.3 0.0 - 1.4 mg/dL LAB CHEMISTRY METHOD 03/24/2024 11:08 AM [facility] Blood Venous blood specimen / Unknown Venipuncture / Unknown 03/24/2024 8:00 AM EST 03/24/2024 10:25 AM EST Kranthi Macdonald MD LAB BLOOD ORDERABLES Final Result [facility] [address] [place] [address], * (ABNORMAL) Complete blood count (03/24/2024 8:00 AM EST) WBC 2.2(L) 4.8 - 10.8 K/mcL LAB HEMETOLOGY METHOD 03/24/2024 10:56 AM [facility] RBC 3.00(L) 3.80 - 4.80 M/mcL LAB HEMETOLOGY METHOD 03/24/2024 10:56 AM [facility] Hemoglobin 9.0(L) 11.5 - 16.0 g/dL LAB HEMETOLOGY METHOD 03/24/2024 10:56 AM [facility] Hematocrit 29.1(L) 35.0 - 47.0 % LAB HEMETOLOGY METHOD 03/24/2024 10:56 AM [facility] MCV 96.7 79.0 - 98.0 FL LAB HEMETOLOGY METHOD 03/24/2024 10:56 AM EST [facility] MCH 29.9 27.0 - 32.0 pcg LAB HEMETOLOGY METHOD 03/24/2024 10:56 AM [facility] MCHC 30.9(L) 32.0 - 37.0 g/dL LAB HEMETOLOGY METHOD 03/24/2024 10:56 AM EST [facility] RDW 17.4(H) 11.0 - 15.0 % LAB HEMETOLOGY METHOD 03/24/2024 10:56 AM [facility] Platelets 58(L) 130 - 400 K/mcL LAB HEMETOLOGY METHOD 03/24/2024 10:56 AM [facility] Comment:previously verified by slide MPV 11.4(H) 7.0 - 11.0 FL LAB HEMETOLOGY METHOD 03/24/2024 10:56 AM EST [facility] NRBC 0.0 <1.0 % LAB HEMETOLOGY METHOD 03/24/2024 10:56 AM [facility] NRBC Absolute 0.00 <0.10 K/mcL LAB HEMETOLOGY METHOD 03/24/2024 10:56 AM [facility] Blood Venous blood specimen / Unknown Venipuncture / Unknown 03/24/2024 8:00 AM EST 03/24/2024 10:25 AM EST us Kranthi Macdonald MD LAB BLOOD ORDERABLES Final Result [facility] [address] [place] [address], documented in this encounter Visit Diagnoses Diagnosis Chronic kidney disease, unspecified Type 2 diabetes mellitus without complications (CMS/HCC) documented in this encounter Additional Health Concerns Infection Onset Date Last Indicated Resolved Time C. difficile 03/21/2024 03/21/2024 04/14/2024 7:04 PM EST documented as of this encounter Care Teams Glove Operator Relationship Specialty Start Date End Date Kranthi Macdonald MD [address] [place] [address] PCP - General Internal Medicine 03/10/24 documented as of this encounter
--- OUTSIDE RECORDS SUMMARY | 2024-05-18 13:03 | XMS_ITS | Encounter Summary ---
Author Organization [facility] Address [address] [place] [address] Care Team Providers Care Butter Maker Name Role Phone Kranthi Macdonald MD Primary Care Provider [phone] Encounter Details Date Type Department Care Team (Late st Contact Info) Description 03/21/2024 Lab Requisition [facility] - Main Lab [address] [facility] [place] [address] Kranthi Macdonald MD [address] [place] [address] Diarrhea, unspecified Social History Tobacco Use Types Packs/Day [...] Procedure Name Priority Date/Time Associated Diagnosis Comments CLOSTRIDIUM DIFFICILE PCR Routine 03/21/2024 6:41 AM EST Diarrhea, unspecified CLOSTRIDIUM DIFFICILE TOXIN Routine 03/21/2024 6:41 AM EST Diarrhea, unspecified documented in this encounter Results * (ABNORMAL) Clostridium difficile molecular study (03/21/2024 6:41 AM EST) Clostridium difficile PCR Positive (AA) Negative LAB MICROBIOLOGY METHOD 03/21/2024 11:27 AM EST [facility] Comment: CRITICAL RESULT POSITIVE FOR TOXIN PRODUCING CLOSTRIDIOIDES DIFFICILE, NO ADDITIONAL TESTING IS NECESSARY. REPEAT SAMPLES SHOULD NOT BE SUBMITTED FOR TEST OF CURE. Stool Rectum structure / Unknown 03/21/2024 6:41 AM EST 03/21/2024 10:18 AM EST Kranthi Macdonald MD LAB MICROBIOLOGY - GENERAL ORDERABLES Final Result Performing Organization Address City/[facility]/ZIP Co de Phone Number [facility] [address] [place] [address], [place] [phone] * Clostridium difficile toxin (03/21/2024 6:41 AM EST) C difficile Toxins A+B, EIA 03/21/2024 11:39 AM EST [facility] Comment:Refer to C. difficil e PCR assay for results. Stool Rectum structure / Unknown 03/21/2024 6:41 AM EST 03/21/2024 9:15 AM EST Kranthi Macdonald MD LAB MICROBIOLOGY - GENERAL ORDERABLES Final Result Performing Organization Address [facility] Co de Phone Number [facility] [address] [place] [address], [place] [phone] documented in this encounter Visit Diagnoses Diagnosis Diarrhea, unspecified documented in this encounter Additional Health Concerns Infection Onset Date Last Indicated Resolved Time C. Diff Rule-Out Infection 03/21/2024 03/21/2024 0 03/21/2024 11:27 AM EST C. difficile 03/21/2024 03/21/2024 04/14/2024 7:04 PM EST documented as of this encounter Care Teams Butter Maker Relationship Specialty Start Date End Date Kranthi Macdonald MD [address] [place] [address] PCP - General Internal Medicine 03/10/24 documented as of this encounter
--- OUTSIDE RECORDS SUMMARY | 2024-05-18 13:03 | XMS_ITS | Clinical Summary ---
Author Organization [facility] Address [address] [place] [address] Care Team Providers Care Patient Support Assistant Name Role Phone Eleazar Le MD Primary Care Provider [phone] Medications Medication Sig Dispensed Refills Start Date End Date Status anastrozole (ARIMIDEX) 1 MG tablet TAKE 1 TABLET BY MOUTH DAILY 90 tablet 2 06/26/2022 Active Social History Tobacco Use Types Packs/Day Years Used Date Smoking Tobacco: Never Assessed Sex and Gender Information Value Date Recorded Sex Assigned at Not on file Gender Identity Not on file Sexual Orientation Not on file Job Start Date Occupation Industry Not on file Not on file Not on file Plan of Treatment Health Maintenance Due Date Last Done Comments Hepatitis C Screening 1948 Depression Screening 1960 Preventative Health Evaluation 1966 Colon Cancer Screening (Colonoscopy) 1993 Shingrix-Zoster Vaccine (1 of 2) 1998 Fall Risk Assessment 2013 Osteoporosis Screening (DEXA Scan) 2013 COVID-19 Vaccine ( season) 2023 06/07/2020 Influenza Vaccine (#1) 2023 2, 12/07/2021, 02/14/2021, Additional history exists RSV Adult > 60+ Yrs or (1 - 1-dose 75+ series) 12/27/2023 DTap / Tdap / Td (3 - Td or Tdap) 08/11/2024 08/11/2014, 05/18/2008 Pneumococcal Vaccine Completed 07/25/2016, 12/15/2014, 10/01/2005 Hepatitis B Vaccines Aged Out No long er eligible based on patient's age to complete this topic RSV Ped < 20 months Aged Out No longe r eligible based on patient's age to complete this topic Care Teams Patient Support Assistant Relationship Specialty Start Date End Date Eleazar Le MD PCP - General Internal Medicine 04/18/22
--- OUTSIDE RECORDS SUMMARY | 2024-05-18 13:03 | XMS_ITS | Encounter Summary ---
Author Organization [facility] Address [address] [place] [address] Care Team Providers Care Flare Breaker Name Role Phone Eleazar Le MD Primary Care Provider [phone] Reason for Visit * Reason Comments Medication Refill Encounter Details Date Type Department Care Team Description 03/06/2023 Nurse Only [facility] On[facility] Services [address] [place] [address] Marybel Posey RN Medication Refill Social History Tobacco Use Types Packs/Day Years Used Date Smoking Tobacco: Never Assessed Sex and Gender Information Value Date Recorded Sex Assigned at Not on file Gender Identity Not on file Sexual Orientation Not on file Job Start Date Occupation Industry Not on file Not on file Not on file documented as of this encounter Progress Notes * Marybel Posey RN - 03/06/2023 3:32 PM EST Notified by professional security officer, refill request for Anastrzole in refill request. Noted patient has not been seen in this office over 3 years. Request has been denied. If patient calls she is to be seen, No refill should be sent until after her visit. documented in this encounter Plan of Treatment Not on file documented as of this encounter Visit Diagnoses Not on filedocumented in this encounter Care Teams Flare Breaker Relationship Specialty Start Date End Date Eleazar Le MD PCP - General Internal Medicine 04/18/22 documented as of this encounter
--- OUTSIDE RECORDS SUMMARY | 2024-05-18 13:03 | XMS_ITS | Encounter Summary ---
Author Organization [facility] Address [address] [place] [address] Care Team Providers Care Director Integrated Name Role Phone Kranthi Macdonald MD Primary Care Provider [phone] Encounter Details Date Type Department Care Team (Late st Contact Info) Description 05/18/2024 Lab Requisition [facility] - Main Lab [address] [facility] [place] [address] Kranthi Macdonald MD [address] [place] [address] Altered mental status, unspecified Social History Tobacco Use Types Packs/Day [...] as of this encounter Plan of Treatment Pending Results Name Type Priority Associated Diagnoses Date /Time Culture urine Microbiology Routine Altered mental status, unspecified 05/18/2024 12:00 AM EDT documented as of this encounter Procedures Procedure Name Priority Date/Time Associated Diagnosis Comments URINALYSIS WITH REFLEX MICROSCOPIC Routine 05/18/2024 12:00 AM EDT Altered mental status, unspecified URINALYSIS WITH REFLEX MICROSCOPIC Routine 05/18/2024 12:00 AM EDT Altered mental status, unspecified documented in this encounter Results * (ABNORMAL) Urinalysis with reflex microscopic (05/18/2024 12:00 AM EDT) Specific [place] Urine 1.016 1.003 - 1.030 LAB URINALYSIS - AUTOMATED METHOD 05/18/2024 11:12 AM [facility] pH, Urine 5.5 5.0 - 8.0 pH LAB URINALYSIS - AUTOMATED METHOD 05/18/2024 11:12 AM [facility] Leukocytes, Urine Large(A) Negative LAB URINALYSIS - AUTOMATED METHOD 05/18/2024 11:12 AM [facility] Nitrite, Urine Positive(A) Negative LAB URINALYSIS - AUTOMATED METHOD 05/18/2024 11:12 AM [facility] Protein, Urine 100(A) <=Trace mg/dL LAB URINALYSIS - AUTOMATED METHOD 05/18/2024 11:12 AM [facility] Glucose, Urine Negative Negative mg/dL LAB URINALYSIS - AUTOMATED METHOD 05/18/2024 11:12 AM [facility] Ketones, Urine Trace(A) Negative mg/dL LAB URINALYSIS - AUTOMATED METHOD 05/18/2024 11:12 AM [facility] Urobilinogen , Urine 0.2 0.2 - 1.0 mg/dL LAB URINALYSIS - AUTOMATED METHOD 05/18/2024 11:12 AM [facility] Bilirubin, Urine Negative Negative LAB URINALYSIS - AUTOMATED METHOD 05/18/2024 11:12 AM [facility] Blood, Urine Small(A) Negative LAB URINALYSIS - AUTOMATED METHOD 05/18/2024 11:12 AM [facility] RBC, Urine 30.0(H) 0 - 4 /HPF LAB URINALYSIS - AUTOMATED METHOD 05/18/2024 11:12 AM [facility] WBC, Urine >4,000(H) 0 - 4 /HPF LAB URINALYSIS - AUTOMATED METHOD 05/18/2024 11:12 AM EDT [facility] Squamous Epithelial, Urine 25 0 - 60 /LPF LAB URINALYSIS - AUTOMATED METHOD 05/18/2024 11:12 AM EDT [facility] Bacteria, Urine Many(A) Negative /HPF LAB URINALYSIS - AUTOMATED METHOD 05/18/2024 11:12 AM EDT [facility] Hyaline Casts, Urine 0.0 0 - 3 /LPF LAB URINALYSIS - AUTOMATED METHOD 05/18/2024 11:12 AM EDT [facility] Urine Urine specimen obtained by clean catch procedure / Unknown Non-blood Collection / Unknown 05/18/2024 05/18/2024 9:41 AM EDT us Kranthi Macdonald MD LAB URINE ORDERABLES Final Result [facility] [address] [place] [address], documented in this encounter Visit Diagnoses Diagnosis Altered mental status, unspecified documented in this encounter Care Teams Director Integrated Relationship Specialty Start Date End Date Kranthi Macdonald MD [address] [place] [address] PCP - General Internal Medicine 03/10/24 documented as of this encounter
--- OUTSIDE RECORDS SUMMARY | 2024-05-18 13:03 | XMS_ITS | Clinical Summary ---
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 12/17/2022 Active escitalopram (LEXAPRO) 20 mg tablet Take 1 tablet (20 mg total) by mouth 1 (one) time each day. 12/17/2022 Active cholestyramine (QUESTRAN) 4 gram packet MIX AND DRINK 1 PACKET BY MOUTH THREE TIMES DAILY WITH MEALS 07/16/2022 Active traZODone (DESYREL) 100 mg tablet Take 2 tablets (200 mg total) by mouth at bedtime. 07/16/2022 Active hydrOXYzine HCL (ATARAX) 25 mg tablet Take 1-2 tablets (25-50 mg total) by mouth at bedtime as needed for anxiety. 04/17/2022 Active gabapentin (NEURONTIN) 300 mg capsule Take 1 capsule (300 mg total) by mouth at bedtime. 01/31/2022 Active losartan (COZAAR) 100 mg tablet Take 1 tablet (100 mg total) by mouth 1 (one) time each day. 11/28/2021 Active tolterodine LA (DETROL LA) 4 mg 24 hr capsule Take 1 capsule (4 mg total) by mouth 1 (one) time each day. 09/21/2021 Active solifenacin (VESICARE) 5 mg tablet Take 1 tablet (5 mg total) by mouth 1 (one) time each day. 09/21/2021 Active ipratropium-alb uteroL (Combivent Respimat) 20-100 mcg/actuation inhaler Inhale 1 puff by mouth 4 (four) times a day. 01/02/2021 Active umeclidinium (Incruse Ellipta) 62.5 mcg/actuation inhalation Take 1 Puff by mouth daily. 01/01/2021 Active tiotropium (Spiriva with HandiHaler) 18 mcg per inhalation capsule Place 1 capsule (18 mcg total) into inhaler and inhale 1 (one) time each day. Inhale the contents of one capsule through the Spiriva device every AM 01/01/2021 Active anastrozole (ARIMIDEX) 1 mg Take 1 tablet (1 mg total) by mouth 1 (one) time each day 06/26/2022 Active atorvastatin (LIPITOR) 40 mg tablet Take 1 tablet (40 mg total) by mouth 1 (one) time each day. 01/19/2019 Active Active Problems Problem Noted Date Diagnosed Date Hypertension 03/01/2024 Chronic pain 03/01/2024 Depression 03/01/2024 Obesity with body mass index 30 or greater 03/01 Class 1 obesity 03/01/2024 Chronic diarrhea 04/17/2022 Major depression, recurrent, chronic 01/28/2019 Noncompliance 12/24/2017 Dilated bile duct 05/02/2017 Urinary incontinence 05/25/2016 Hepatocellular carcinoma 12/19/2015 Overview (03/01/2024): Treated 2015 [facility] COPD (chronic obstructive pulmonary disease) 01/2016 Osteopenia 01/14/2015 Diabetes mellitus type 2 with neurological manif estations 12/28/2014 Diabetes mellitus with renal manifestation 12/15 Microalbuminuria 12/15/2014 Ecthyma 08/11/2014 Hyperlipidemia 03/16/2014 Encounters Date Type Department Care Team Description 05/18/2024 Lab Requisition [facility] Lab [address] [facility] [place] [phone] Kranthi Macdonald MD Altered mental status, unspecified 05/18/2024 Lab Requisition [facility] Lab [address] [place] [phone] Kranthi Macdonald MD Altered mental status, unspecified 04/28/2024 Lab Requisition [facility] Lab [address] [place] [phone] Kranthi Macdonald MD Type 2 diabetes mellitus without complications (CMS/HCC); Chronic kidney disease, unspecified; Malignant neoplasm of unspecified part of unspecified bronchus or lung (CMS/HCC) 03/23/2024 Lab Requisition [facility] Lab [address] [place] [phone] Kranthi Macdonald MD Chronic kidney disease, unspecified; Type 2 diabetes mellitus without complications ([facility]/HCC) 03/21/2024 Lab Requisition [facility] Lab [address] [place] [phone] Kranthi Macdonald MD Weakness; Type 2 diabetes mellitus without complications ([facility]/HCC); Chronic kidney disease, unspecified; Fever, unspecified 03/21/2024 Lab Requisition [facility] Lab [address] [place] [phone] Kranthi Macdonald MD Diarrhea, unspecified 03/10/2024 Lab Requisition [facility] Lab [address] [place] [phone] Kranthi Macdonald MD Bacterial infection, unspecified; Urinary tract infection, site not specified; Type 2 diabetes mellitus without complications ([facility]/HCC); Chronic kidney disease, unspecified from Last 3 Months Immunizations Name Administration Dates Next Due Diptheria & Tetanus, 6wks to less than 7yo 05/18/2008 Influenza Whole 05/18/2008,12/31/2006,03/20/2006 Influenza trivalent, with pr eservative (Fluzone; Afluria) 6mo and older 12/07/2021,02/14/2021,01/28/2019,12/24,01/28/2017,12/19/2015,12/24/2013 ,05/23/2010 Pneumococcal conjugate 13 va lent (Prevnar 13, PCV13) 2mo and older 12/15/2014 Pneumococcal polysaccharide 23 valent (Pneumovax 23) 2yo and older 07/25/2016,10/01/2005 Tdap Tetanus diptheria acell ular pertussis (Boostrix; Adacel) 7yo and older 08/11/2014 Surgical History Surgery Date Site/Laterality Comments TOTAL KNEE ARTHROPLASTY Bilateral PROCEDURE: HISTORICAL TOTAL KNEE REPLACE CHOLECYSTECTOMY PROCEDURE: HISTORICAL CHOLECYSTECTOMY HERNIA REPAIR PROCEDURE: HISTORICAL HERNIA REPAIR/MATT CHOLECYSTECTOMY PROCEDURE: DC LAPAROSCOPY SURG CHOLECYSTECTOMY BREAST BIOPSY Right PROCEDURE: BX BREAST; PERC NEEDLE CORE W/IMAG GUID APPENDECTOMY PROCEDURE: DC APPENDECTOMY TONSILLECTOMY PROCEDURE: HISTORICAL TONSILLECTOMY MULTIPLE TOOTH EXTRACTIONS PROCEDURE: HISTORICAL DENTAL EXTRACTION COLONOSCOPY W/ BIOPSIES 07/14/15 PROCEDURE: DC COLONOSCOPY STOMA W/BIOPSY SINGLE/MULTIPLE; COMMENT: adenomas and hemorrhoids; repeat under propofol in 3 yrs BREAST SURGERY Right PROCEDURE: DC UNLISTED PROCEDURE BREAST; COMMENT: 03/2015 OTHER SURGICAL HISTORY 2015 PROCEDURE: HISTORY OTHER; COMMENT: excision of liver tumor at [facility] COLONOSCOPY 04/10/17 [facility] PROCEDURE: OUTSIDE COLONOSCOPY; COMMENT: Hemorrhoids; repeat in 5 yrs under propofol ESOPHAGOGASTRODUODENOSCOPY 07/14/15 [facility] PROCEDURE: DC ESOPHAGOGASTRODUODENOSCOPY TRANSORAL DIAGNOSTIC; COMMENT: normal; repeat in 2 yrs under propofol ESOPHAGOGASTRODUODENOSCOPY 07/23/17 [facility] PROCEDURE: DC ESOPHAGOGASTRODUODENOSCOPY TRANSORAL DIAGNOSTIC; COMMENT: Normal, withut varices or portal hypertensive gastropathy; repeat in 2 years under propofol Medical History Medical History Date Comments Hypertension DX:Hypertension Depression DX:Depression Chronic pain DX:Chronic pain Diabetes mellitus type 2 wit h neurological manifestations (CMS/HCC) 12/28/2014 DX:Diabetes celio itus type 2 with neurological manifestations (HCC) Breast cancer (CMS/HCC) 02/27/2015 DX:Breas t cancer (HCC) Chronic hepatitis C (CMS/HCC) 07/05/2015 DX :Chronic hepatitis C (HCC); COMMENT: Genotype 1A, and is immune to hepatitis A and B. Fibrosure Results: consistent with cirrhosis or near cirrhosis. Hepatocellular carcinoma (CMS/HCC) 12/19/2015 DX:Hepatocellular carcinoma (HCC); COMMENT: Treated 2015 [facility] Urinary incontinence 05/25/2016 DX:Urinary incontinence Family History Medical History Relation Name Comments Breast cancer Neg Hx Relation Name Status Comments Brother suicide Father (Age 68) [place] Mother (Age 85) dementia Sister 1 Alive Sister 2 Alive Social History Tobacco Use Types Packs/Day Years [...] on file Sexual Orientation Not on file Obstetrics History Last Filed Vital Signs Vital Sign Reading Time Taken Comments Blood Pressure 120/58 09/18/2023 10:26 AM EDT Pulse 70 09/18/2023 10:26 AM EDT Temperature - - Respiratory Rate - - Oxygen Saturation - - Inhaled Oxygen Concentration - - Weight 90.8 kg (200 lb 3.2 oz) 04/17/2022 11:07 AM EST Height 152.4 cm (5') 09/18/2023 10:26 AM EDT Body Mass Index 39.1 04/17/2022 11:07 AM EST Plan of Treatment Health Maintenance Due Date Last Done Comments Diabetes: Annual Foot Exam 1960 Diabetes: Annual Retina Eye Exam 1960 Hepatitis A Vaccines (1 of 2 - Risk 2-dose series) 12/27/1967 Zoster Vaccines (1 of 2) 12/27/1967 Hepatitis B Vaccines (1 of 3 - Risk 3-dose series) 2008 COVID-19 Vaccine (2 - Jose risk series) 07/05/2020 06/07/2020 Colorectal Cancer Screening: Colonoscopy 02/17/2022 Lung Cancer Screening (Low Dose CT) 02/17/2022 Social Influencers of Health Screening 02/17/2022 Diabetes: Blood Sugar Control Test (HGBA1C) 11/14/2022 05/14/2022 Diabetes: Annual Urine Albumin-Creatinine Ratio (uACR) 01/03/2023 01/03/2022 Depression Screening 04/17/2023 04/17/2022 Falls Risk Assessment 04/17/2023 04/17/2022 Influenza Vaccine (#1) 2023 2, 02/14/2021, 01/28/2019, Additional history exists RSV Immunization Patients 60+ Years Old (1 - 1-dose 75+ series) 12/27/2023 DTaP,Tdap,and Td Vaccines (3 - Td or Tdap) 08/11/2024 08/11/2014, 05/18/2008 Diabetes: Annual GFR (Glomerular Filtration Rate) 05/18/2025 05/18/2024, 04/28/2024, 03/24/2024, Additional history exists Hypertension/CHF/CAD Annual BMP Blood Test 05/18/2025 05/18/2024, 04/28/2024, 03/24/2024, Additional history exists Cholesterol Screening (Lipid Panel) 01/03/2027 01/03/2022 Osteoporosis Screening (Bone Density Screening) 11/02/2027 11/01/2017 Hepatitis C Screening Completed 04/08/2015 Pneumococcal Vaccine: 50+ Years Completed 07/25/2016, 12/15/2014, 10/01/2005 Breast Cancer Screening Discontinued 01/24/2017 HIB Vaccines Aged Out No longer eligi ble based on patient's age to complete this topic HPV Vaccines Aged Out No longer eligi ble based on patient's age to complete this topic IPV Vaccines Aged Out No longer eligi ble based on patient's age to complete this topic MMR Vaccines Aged Out No longer eligi ble based on patient's age to complete this topic Meningococcal ACWY Vaccine Aged Out N o longer eligible based on patient's age to complete this topic Meningococcal B Vacine Aged Out No lo nger eligible based on patient's age to complete this topic RSV Immunization Patients Under 20 months Aged Out No longer eligible based on patient's age to complete this topic Varicella Vaccines Aged Out No longer eligible based on patient's age to complete this topic Procedures Procedure Name Priority Date/Time Associated Diagnosis Comments AMMONIA Routine 05/18/2024 8:19 AM EDT Altered mental status, unspecified COMPREHENSIVE METABOLIC PANEL Routine 05/18/2024 8:19 AM EDT Altered mental status, unspecified COMPLETE BLOOD COUNT Routine 05/18/2024 8:19 AM EDT Altered mental status, unspecified URINALYSIS WITH REFLEX MICROSCOPIC Routine 05/18/2024 12:00 AM EDT Altered mental status, unspecified URINALYSIS WITH REFLEX MICROSCOPIC Routine 05/18/2024 12:00 AM EDT Altered mental status, unspecified MANUAL DIFFERENTIAL - SYSMEX WAM Routine 04/28/2024 6:36 AM EST Type 2 diabetes mellitus without complications (CMS/HCC) Chronic kidney disease, unspecified Malignant neoplasm of unspecified part of unspecified bronchus or lung (CMS/HCC) CBC WITH AUTO DIFFERENTIAL Routine 04/28/2024 6:36 AM EST Type 2 diabetes mellitus without complications (CMS/HCC) Chronic kidney disease, unspecified Malignant neoplasm of unspecified part of unspecified bronchus or lung (CMS/HCC) BASIC METABOLIC PANEL Routine 04/28/2024 6:36 AM EST Type 2 diabetes mellitus without complications (CMS/HCC) Chronic kidney disease, unspecified Malignant neoplasm of unspecified part of unspecified bronchus or lung (CMS/HCC) CBC AND DIFFERENTIAL Routine 04/28/2024 6:36 AM EST Type 2 diabetes mellitus without complications (CMS/HCC) Chronic kidney disease, unspecified Malignant neoplasm of unspecified part of unspecified bronchus or lung (CMS/HCC) COMPREHENSIVE METABOLIC PANEL Routine 03/24/2024 8:00 AM EST Chronic kidney disease, unspecified Type 2 diabetes mellitus without complications (CMS/HCC) COMPLETE BLOOD COUNT Routine 03/24/2024 8:00 AM EST Chronic kidney disease, unspecified Type 2 diabetes mellitus without complications (CMS/HCC) THYROID STIMULATING HORMONE STAT 03/21/2024 11:30 AM EST Weakness Type 2 diabetes mellitus without complications (CMS/HCC) Chronic kidney disease, unspecified Fever, unspecified COMPREHENSIVE METABOLIC PANEL STAT 03/21/2024 11:30 AM EST Weakness Type 2 diabetes mellitus without complications (CMS/HCC) Chronic kidney disease, unspecified Fever, unspecified COMPLETE BLOOD COUNT STAT 03/21/2024 11:30 AM EST Weakness Type 2 diabetes mellitus without complications (CMS/HCC) Chronic kidney disease, unspecified Fever, unspecified CLOSTRIDIUM DIFFICILE PCR Routine 03/21/2024 6:41 AM EST Diarrhea, unspecified CLOSTRIDIUM DIFFICILE TOXIN Routine 03/21/2024 6:41 AM EST Diarrhea, unspecified BASIC METABOLIC PANEL Routine 03/10/2024 7:27 AM EST Bacterial infection, unspecified Urinary tract infection, site not specified Type 2 diabetes mellitus without complications (CMS/HCC) Chronic kidney disease, unspecified COMPLETE BLOOD COUNT Routine 03/10/2024 7:27 AM EST Bacterial infection, unspecified Urinary tract infection, site not specified Type 2 diabetes mellitus without complications (CMS/HCC) Chronic kidney disease, unspecified EXTERNAL XRAY REPORT 02/24/[address] REPORT 02/24/2024 HEMOGLOBIN A1C Routine 05/14/2022 DEPRESSION SCREENING Routine 04/17/2022 FALLS RISK ASSESSMENT Routine 04/17/2022 URINE ALBUMIN CREATININE RATIO Routine 01/03/2022 LIPID PANEL Routine 01/03/2022 DXA BONE DENSITY STUDY 1+ SITS AXIAL SKEL Routine 11/01/2017 2:07 PM EDT Encounter for screening for osteoporosis DX MAMMO INCL CAD BI Routine 01/24/2017 2:32 PM EST Personal history of malignant neoplasm of breast HEPATITIS C SCREENING Routine 04/08/2015 from Last 3 Months or Most Recently Relevant to Health Maintenance Results * (ABNORMAL) Complete blood count (05/18/2024 8:19 AM EDT) Only the most recent of4 resultswithin the time period is included. [facility] Signature WBC 3.1(L) 4.8 - 10.8 K/mcL LAB HEMETOLOGY METHOD 05/18/2024 11:12 AM [facility] RBC 2.70(L) 3.80 - 4.80 M/mcL LAB HEMETOLOGY METHOD 05/18/2024 11:12 AM [facility] Hemoglobin 7.9(L) 11.5 - 16.0 g/dL LAB HEMETOLOGY METHOD 05/18/2024 11:12 AM [facility] Hematocrit 25.2(L) 35.0 - 47.0 % LAB HEMETOLOGY METHOD 05/18/2024 11:12 AM [facility] MCV 92.3 79.0 - 98.0 FL LAB HEMETOLOGY METHOD 05/18/2024 11:12 AM [facility] MCH 28.9 27.0 - 32.0 pcg LAB HEMETOLOGY METHOD 05/18/2024 11:12 AM [facility] MCHC 31.3(L) 32.0 - 37.0 g/dL LAB HEMETOLOGY METHOD 05/18/2024 11:12 AM [facility] RDW 17.1(H) 11.0 - 15.0 % LAB HEMETOLOGY METHOD 05/18/2024 11:12 AM [facility] Platelets 48(L) 130 - 400 K/mcL LAB HEMETOLOGY METHOD 05/18/2024 11:12 AM [facility] LAB Comment:previously verified by slide MPV 12.9(H) 7.0 - 11.0 FL LAB HEMETOLOGY METHOD 05/18/2024 11:12 AM [facility] NRBC 0.0 <1.0 % LAB HEMETOLOGY METHOD 05/18/2024 11:12 AM [facility] NRBC Absolute 0.00 <0.10 K/mcL LAB HEMETOLOGY METHOD 05/18/2024 11:12 AM EDT [facility] Blood Venous blood specimen / Unknown Venipuncture / Unknown 05/18/2024 8:19 AM EDT 05/18/2024 8:58 AM EDT us Kranthi Macdonald MD LAB BLOOD ORDERABLES Final Result Performing Organization Address [facility]/ZIP Co de Phone Number [facility] [address] [place] [address], [place] [phone] * Ammonia (05/18/2024 8:19 AM EDT) Ammonia 22 11 - 35 mcmol/L LAB CHEMISTRY METHOD 05/18/2024 9:16 AM EDT [facility] Blood Venous blood specimen / Unknown Venipuncture / Unknown 05/18/2024 8:19 AM EDT 05/18/2024 8:58 AM EDT us Kranthi Macdonald MD LAB BLOOD ORDERABLES Final Result Performing Organization Address [facility] Co de Phone Number [facility] [address] [place] [address], [place] [phone] * (ABNORMAL) Comprehensive metabolic panel (05/18/2024 8:19 AM EDT) Only the most recent of3 resultswithin the time period is included. Sodium 143 133 - 145 mmol/L LAB CHEMISTRY METHOD 05/18/2024 12:18 PM EDT [facility] Potassium 4.6 3.5 - 5.5 mmol/L LAB CHEMISTRY METHOD 05/18/2024 12:18 PM EDT [facility] Chloride 115(H) 96 - 110 mmol/L LAB CHEMISTRY METHOD 05/18/2024 12:18 PM EDT [facility] CO2 18(L) 21 - 32 mmol/L LAB CHEMISTRY METHOD 05/18/2024 12:18 PM [facility] Anion Gap 10 3 - 11 LAB CHEMISTRY METHOD 05/18/2024 12:18 PM [facility] Glucose 73 70 - 100 mg/dL LAB CHEMISTRY METHOD 05/18/2024 12:18 PM [facility] BUN 42(H) 5 - 25 mg/dL LAB CHEMISTRY METHOD 05/18/2024 12:18 PM [facility] Creatinine 2.39(H) 0.50 - 1.10 mg/dL LAB CHEMISTRY METHOD 05/18/2024 12:18 PM [facility] eGFR 21(L) >=60 mL/min/1. 73m2 LAB CHEMISTRY METHOD 05/18/2024 12:18 PM [facility] Comment:Calculation based on the??Chronic Kidney Disease Epidemiology Collaboration (CKD-EPI) equation refit??without adjustment for race. BUN/Creatinine Ratio 17.6 LAB CHEMISTRY METHOD 05/18/2024 12:18 PM [facility] Calcium 9.3 8.5 - 10.5 mg/dL LAB CHEMISTRY METHOD 05/18/2024 12:18 PM [facility] AST (SGOT) 43(H) 10 - 42 unit/L LAB CHEMISTRY METHOD 05/18/2024 12:18 PM [facility] ALT (SGPT) 22 10 - 60 unit/L LAB CHEMISTRY METHOD 05/18/2024 12:18 PM [facility] Alkaline Phosphatase 107 42 - 121 unit/L LAB CHEMISTRY METHOD 05/18/2024 12:18 PM [facility] Total Protein 4.5(L) 6.0 - 8.0 g/dL LAB CHEMISTRY METHOD 05/18/2024 12:18 PM [facility] Albumin 1.9(L) 3.2 - 5.0 g/dL LAB CHEMISTRY METHOD 05/18/2024 12:18 PM [facility] Total Bilirubin 0.7 0.0 - 1.4 mg/dL LAB CHEMISTRY METHOD 05/18/2024 12:18 PM [facility] Blood Venous blood specimen / Unknown Venipuncture / Unknown 05/18/2024 8:19 AM EDT 05/18/2024 8:58 AM EDT Kranthi Macdonald MD LAB BLOOD ORDERABLES Final Result [facility] [address] [place] [address], * (ABNORMAL) Urinalysis with reflex microscopic (05/18/2024 12:00 AM EDT) Specific [place] Urine 1.016 1.003 - 1.030 LAB URINALYSIS - AUTOMATED METHOD 05/18/2024 11:12 AM [facility] pH, Urine 5.5 5.0 - 8.0 pH LAB URINALYSIS - AUTOMATED METHOD 05/18/2024 11:12 AM [facility] Leukocytes, Urine Large(A) Negative LAB URINALYSIS - AUTOMATED METHOD 05/18/2024 11:12 AM [facility] Nitrite, Urine Positive(A) Negative LAB URINALYSIS - AUTOMATED METHOD 05/18/2024 11:12 AM [facility] Protein, Urine 100(A) <=Trace mg/dL LAB URINALYSIS - AUTOMATED METHOD 05/18/2024 11:12 AM [facility] Glucose, Urine Negative Negative mg/dL LAB URINALYSIS - AUTOMATED METHOD 05/18/2024 11:12 AM [facility] Ketones, Urine Trace(A) Negative mg/dL LAB URINALYSIS - AUTOMATED METHOD 05/18/2024 11:12 AM [facility] Urobilinogen , Urine 0.2 0.2 - 1.0 mg/dL LAB URINALYSIS - AUTOMATED METHOD 05/18/2024 11:12 AM [facility] Bilirubin, Urine Negative Negative LAB URINALYSIS - AUTOMATED METHOD 05/18/2024 11:12 AM [facility] Blood, Urine Small(A) Negative LAB URINALYSIS - AUTOMATED METHOD 05/18/2024 11:12 AM [facility] RBC, Urine 30.0(H) 0 - 4 /HPF LAB URINALYSIS - AUTOMATED METHOD 05/18/2024 11:12 AM [facility] WBC, Urine >4,000(H) 0 - 4 /HPF LAB URINALYSIS - AUTOMATED METHOD 05/18/2024 11:12 AM [facility] Squamous Epithelial, Urine 25 0 - 60 /LPF LAB URINALYSIS - AUTOMATED METHOD 05/18/2024 11:12 AM [facility] Bacteria, Urine Many(A) Negative /HPF LAB URINALYSIS - AUTOMATED METHOD 05/18/2024 11:12 AM [facility] Hyaline Casts, Urine 0.0 0 - 3 /LPF LAB URINALYSIS - AUTOMATED METHOD 05/18/2024 11:12 AM [facility] Urine Urine specimen obtained by clean catch procedure / Unknown Non-blood Collection / Unknown 05/18/2024 05/18/2024 9:41 AM EDT us Kranthi Macdonald MD LAB URINE ORDERABLES Final Result [facility] [address] [place] [address], * (ABNORMAL) Manual differential (04/28/2024 6:36 AM EST) Neutrophils % 35.0 % LAB HEMETOLOGY METHOD 04/28/2024 2:59 PM [facility] Lymphocytes % 60.0 % LAB HEMETOLOGY METHOD 04/28/2024 2:59 PM [facility] Monocytes % 3.0 % LAB HEMETOLOGY METHOD 04/28/2024 2:59 PM [facility] Eosinophils % 1.0 % LAB HEMETOLOGY METHOD 04/28/2024 2:59 PM [facility] Basophils % 0.0 % LAB HEMETOLOGY METHOD 04/28/2024 2:59 PM [facility] Neutrophils Absolute Manual 0.53(L) 1.50 - 7.00 K/mcL LAB HEMETOLOGY METHOD 04/28/2024 2:59 PM [facility] Lymphocytes Absolute 0.90(L) 1.00 - 5.00 K/mcL LAB HEMETOLOGY METHOD 04/28/2024 2:59 PM [facility] Monocytes Absolute Manual 0.05(L) 0.20 - 1.00 K/mcL LAB HEMETOLOGY METHOD 04/28/2024 2:59 PM [facility] Eosinophils Absolute Manual 0.02 0.00 - 0.50 K/mcL LAB HEMETOLOGY METHOD 04/28/2024 2:59 PM [facility] Basophils Absolute Manual 0.00 0.00 - 0.20 K/mcL LAB HEMETOLOGY METHOD 04/28/2024 2:59 PM [facility] Rbc Morphology Consistent with indices Consistent with indices, Normal for LAB HEMETOLOGY METHOD 04/28/2024 2:59 PM [facility] Platelet Morphology - WAM See Note(A) Normal LAB HEMETOLOGY METHOD 04/28/2024 2:59 PM [facility] Comment:PLT: Normal Blood Venous blood specimen / Unknown Venipuncture / Unknown 04/28/2024 6:36 AM EST 04/28/2024 10:34 AM EST Kranthi Macdonald MD LAB BLOOD ORDERABLES Final Result [facility] [address] [place] [address], * (ABNORMAL) CBC auto differential (04/28/2024 6:36 AM EST) WBC 1.5(LL) 4.8 - 10.8 K/mcL LAB HEMETOLOGY METHOD 04/28/2024 2:59 PM [facility] RBC 2.30(L) 3.80 - 4.80 M/mcL LAB HEMETOLOGY METHOD 04/28/2024 2:59 PM [facility] Hemoglobin 6.7(L) 11.5 - 16.0 g/dL LAB HEMETOLOGY METHOD 04/28/2024 2:59 PM [facility] Hematocrit 21.9(L) 35.0 - 47.0 % LAB HEMETOLOGY METHOD 04/28/2024 2:59 PM [facility] MCV 95.6 79.0 - 98.0 FL LAB HEMETOLOGY METHOD 04/28/2024 2:59 PM [facility] MCH 29.3 27.0 - 32.0 pcg LAB HEMETOLOGY METHOD 04/28/2024 2:59 PM [facility] MCHC 30.6(L) 32.0 - 37.0 g/dL LAB HEMETOLOGY METHOD 04/28/2024 2:59 PM [facility] RDW 15.7(H) 11.0 - 15.0 % LAB HEMETOLOGY METHOD 04/28/2024 2:59 PM [facility] Platelets 43(L) 130 - 400 K/mcL LAB HEMETOLOGY METHOD 04/28/2024 2:59 PM EST [facility] Comment:reviewed by slide MPV 11.8(H) 7.0 - 11.0 FL LAB HEMETOLOGY METHOD 04/28/2024 2:59 PM EST [facility] NRBC 0.0 <1.0 % [facility] 04/28/2024 2:59 PM EST [facility] NRBC Absolute 0.00 <0.10 K/mcL [facility] 04/28/2024 2:59 PM EST [facility] Blood Venous blood specimen / Unknown Venipuncture / Unknown 04/28/2024 6:36 AM EST 04/28/2024 10:34 AM EST Kranthi Macdonald MD LAB BLOOD ORDERABLES Final Result [facility] [address] [place] [address], * (ABNORMAL) Basic metabolic panel (04/28/2024 6:36 AM EST) Only the most recent of2 resultswithin the time period is included. Sodium 140 133 - 145 mmol/L LAB CHEMISTRY METHOD 04/28/2024 1:10 PM [facility] Potassium 4.2 3.5 - 5.5 mmol/L LAB CHEMISTRY METHOD 04/28/2024 1:10 PM [facility] Chloride 115(H) 96 - 110 mmol/L LAB CHEMISTRY METHOD 04/28/2024 1:10 PM [facility] CO2 20(L) 21 - 32 mmol/L LAB CHEMISTRY METHOD 04/28/2024 1:10 PM [facility] Anion Gap 5 3 - 11 LAB CHEMISTRY METHOD 04/28/2024 1:10 PM [facility] Glucose 71 70 - 100 mg/dL LAB CHEMISTRY METHOD 04/28/2024 1:10 PM [facility] BUN 25 5 - 25 mg/dL LAB CHEMISTRY METHOD 04/28/2024 1:10 PM EST [facility] Creatinine 2.02(H) 0.50 - 1.10 mg/dL LAB CHEMISTRY METHOD 04/28/2024 1:10 PM [facility] eGFR 25(L) >=60 mL/min/1. 73m2 LAB CHEMISTRY METHOD 04/28/2024 1:10 PM [facility] Comment:Calculation based on the??Chronic Kidney Disease Epidemiology Collaboration (CKD-EPI) equation refit??without adjustment for race. BUN/Creatinine Ratio 12.4 LAB CHEMISTRY METHOD 04/28/2024 1:10 PM [facility] Calcium 8.7 8.5 - 10.5 mg/dL LAB CHEMISTRY METHOD 04/28/2024 1:10 PM [facility] Blood Venous blood specimen / Unknown Venipuncture / Unknown 04/28/2024 6:36 AM EST 04/28/2024 10:34 AM EST us Kranthi Macdonald MD LAB BLOOD ORDERABLES Final Result [facility] [address] [place] [address], [place] [phone] * Thyroid stimulating hormone (03/21/2024 11:30 AM EST) TSH 2.07 0.40 - 4.00 mcIU/mL LAB CHEMISTRY METHOD 03/21/2024 12:56 PM EST [facility] Blood Venous blood specimen / Unknown Venipuncture / Unknown 03/21/2024 11:30 AM EST 03/21/2024 12:01 PM EST us Kranthi Macdonald MD LAB BLOOD ORDERABLES Final Result [facility] [address] [place] [address], [place] [phone] * (ABNORMAL) Clostridium difficile molecular study (03/21/2024 6:41 AM EST) Clostridium difficile PCR Positive (AA) Negative LAB MICROBIOLOGY METHOD 03/21/2024 11:27 AM EST [facility] Comment: CRITICAL RESULT POSITIVE FOR TOXIN PRODUCING CLOSTRIDIOIDES DIFFICILE, NO ADDITIONAL TESTING IS NECESSARY. REPEAT SAMPLES SHOULD NOT BE SUBMITTED FOR TEST OF CURE. Stool Rectum structure / Unknown 03/21/2024 6:41 AM EST 03/21/2024 10:18 AM EST us Kranthi Macdonald MD LAB MICROBIOLOGY - GENERAL ORDERABLES Final Result [facility] [address] [place] [address], [place] [phone] * Clostridium difficile toxin (03/21/2024 6:41 AM EST) C difficile Toxins A+B, EIA 03/21/2024 11:39 AM EST [facility] Comment:Refer to C. difficil e PCR assay for results. Stool Rectum structure / Unknown 03/21/2024 6:41 AM EST 03/21/2024 9:15 AM EST us Kranthi Macdonald MD LAB MICROBIOLOGY - GENERAL ORDERABLES Final Result [facility] [address] [place] [address], [place] [phone] * External Xray Report (02/24/2024) Anatomical Region Laterality Modality Radiographic Jaz ging us Provider Onbase MD IMG XR PROCEDURES Final Resul t * External CT Report (02/24/2024) Anatomical Region Laterality Modality Computed Tomogra phy us Provider Onbase MD IMG CT PROCEDURES Final Resul t * Hemoglobin A1c (05/14/2022) [facility] Hemoglobin A1C 5.2 <=6.5 % Blood Venous blood specimen / Unknown Result [facility] Provider MD LAB BLOOD ORDERABLES Yulia l Result * Falls Risk Assessment (04/17/2022) [facility] Falls Risk Assessment abstracted Result [facility] Provider [place] [facility] [employer]INTENANCE Final Result * Depression Screening (04/17/2022) [facility] Depression Screening abstracted Result [facility] Provider [place] [facility] MAINTENANCE Final Result * Urine Albumin Creatinine Ratio (01/03/2022) [facility] Urine Albumin Creatinine Ratio abstracted Result [facility] HEALTH MAINTENANCE Final Result * Lipid panel (01/03/2022) [facility] LDL/HDL Ratio 3 0 - 4 Triglycerides 100 0 - 150 mg/dL Cholesterol 100 0 - 200 mg/dL HDL 40 >=40 mg/dL LDL Cholesterol 40 0 - 100 mg/dL Blood Venous blood specimen / Unknown Result [facility] MD LAB BLOOD ORDERABLES Yulia l Result * DXA BONE DENSITY STUDY 1+ SITS AXIAL SKEL (11/01/2017 2:07 PM EDT) Anatomical Region Laterality Modality Bone Densitometr y 08/29/2017 2:59 PM EDT Narrative 11/01/2017 3:19 PM EDT BONE DENSITY ? Lumbar Spine T-score is +1.7 ?? (SD relative to 20-29 y/o adult) Z-score is +3.7 ??(SD relative to age matched peers) This is normal by criteria defined by the WHO. Left Hip T-score is -1.1 Z-score is +0.7 This is consistent with osteopenia by criteria defined by the WHO. Comparison exam(s): significant decrease in bone density of ??lumbar spine when compared to most recent bone density examination ?? Confidence level is +/-95%. Impression: Based on the World Health Organization criteria, Anna Crawford should be classified as having osteopenia. This patient has a 7.5% risk of major osteoporotic fracture and a 1.1% risk of hip fracture over the next 10 years. (World Health Organization Fracture Risk Assessment) [facility] Department of Internal Medicine recommends using National Osteoporosis Foundation (NOF) guidelines in treatment decisions related to osteoporosis. NOF guidelines suggest considering treatment for postmenopausal women and men aged 50 or older presenting with the following: History of hip or vertebral fracture. T-score less than or equal to -2.5 (DXA) at the femoral neck, total hip, or spine, after appropriate evaluation to exclude secondary causes. Low bone mass (T-score between -1.0 and -2.5 at the femoral neck or spine) AND a 10-year probability of a hip fracture greater than or equal to 3% OR a 10-year probability of a major osteoporosis-related fracture greater than or equal to 20% based on the [place]-adapted WHO algorithm Please note that all treatment decisions require clinical judgment and consideration of individual patient factors, including patient preferences, co-morbidities, previous drug use, risk factors not captured in the FRAX model (e.g., frailty, falls, vitamin D deficiency, increased bone turnover, interval significant decline in bone density) and possible under- or over-estimation of fracture risk by FRAX. Procedure Note Jose Raul Luis MD - 02/27/2022 BONE DENSITY Lumbar Spine T-score is +1.7 (SD relative to 20-29 y/o adult) Z-score is +3.7 (SD relative to age matched peers) This is normal by criteria defined by the WHO. Left Hip T-score is -1.1 Z-score is +0.7 This is consistent with osteopenia by criteria defined by the WHO. Comparison exam(s): significant decrease in bone density of lumbar spinewhen compared to most recent bone density examination Confidence level is +/-95%. Impression: Based on the World Health Organization criteria, Anna Crawford should beclassified as having osteopenia. This patient has a 7.5% risk of majorosteoporotic fracture and a 1.1% risk of hip fracture over the next 10years. (World Health Organization Fracture Risk Assessment) [facility] Department of Internal Medicine recommendsusing National Osteoporosis Foundation (NOF) guidelines in treatmentdecisions related to osteoporosis. NOF guidelines suggest consideringtreatment for postmenopausal women and men aged 50 or older presentingwith the following: History of hip or vertebral fracture. T-score less than or equal to -2.5 (DXA) at the femoral neck, total hip,or spine, after appropriate evaluation to exclude secondary causes. Low bone mass (T-score between -1.0 and -2.5 at the femoral neck or spine)AND a 10-year probability of a hip fracture greater than or equal to 3% ORa 10-year probability of a major osteoporosis-related fracture greaterthan or equal to 20% based on the [place]-adapted WHO algorithm Please note that all treatment decisions require clinical judgment andconsideration of individual patient factors, including patientpreferences, co-morbidities, previous drug use, risk factors not capturedin the FRAX model (e.g., frailty, falls, vitamin D deficiency, increasedbone turnover, interval significant decline in bone density) and possibleunder- or over-estimation of fracture risk by FRAX. Neri TAYLOR IMG DXA PROCEDURES Final Result * DX MAMMO INCL CAD BI (01/24/2017 2:32 PM EST) Anatomical Region Laterality Modality Mammography 01/24/2016 2:33 PM EST Narrative 01/24/2017 2:48 PM EST This is a summary report. The complete report is available in the patient's medical record. If you cannot access the medical record, please contact the sending organization for a detailed fax or copy. Bilateral diagnostic digital mammogram: History: Status post lumpectomy with radiation therapy right breast Comparison: Prior studies as recent as 01/24/2016 baseline postoperative study. Interpretation was made with benefit of CAD. Breast tissue pattern is composed of scattered fibroglandular densities. Postsurgical changes are seen in the upper- outer quadrant right breast stable when compared with 01/24/2016 study. Generalized skin thickening right breast most likely due to prior radiation therapy. No dominant mass lesion or suspicious microcalcifications in either breast. Impression: No mammographic evidence of malignancy. Postoperative/radiation therapy changes right breast. Diagnostic mammogram including magnification views right breast lumpectomy site in 1 year has been scheduled in accordance with department protocol. BI-RADS 2-benign findings Procedure Note Bc Castellano MD - 04/12/2023 This is a summary report. The complete report is available in thepatient's medical record. If you cannot access the medical record, pleasecontact the sending organization for a detailed fax or copy. Bilateral diagnostic digital mammogram: History: Status post lumpectomy with radiation therapy right breast Comparison: Prior studies as recent as 01/24/2016 baseline postoperativestudy. Interpretation was made with benefit of CAD. Breast tissue pattern iscomposed of scattered fibroglandular densities. Postsurgical changes areseen in the upper- outer quadrant right breast stable when compared with01/24/2016 study. Generalized skin thickening right breast most likely dueto prior radiation therapy. No dominant mass lesion or suspiciousmicrocalcifications in either breast. Impression: No mammographic evidence of malignancy.Postoperative/radiation therapy changes right breast. Diagnostic mammogramincluding magnification views right breast lumpectomy site in 1 year hasbeen scheduled in accordance with department protocol. BI-RADS 2-benign findings Sil Hawkins MD IMG BI PROCEDURES Final Result * Hepatitis C Screening (04/08/2015) Hepatitis C Screening abstracted Historical Provider HEALTH MAINTENANCE Final Result from Last 3 Months or Most Recently Relevant to Health Maintenance Insurance [place]ICA[place] - [place] [facility] [place]S [id number] Care Teams Computer Repair Technician Relationship Specialty Start Date End Date Kranthi Macdonald MD [address] [place] [id number] PCP - General Internal Medicine 03/10/24
--- OUTSIDE RECORDS SUMMARY | 2024-05-18 13:03 | XMS_ITS | Encounter Summary ---
Author Organization [facility] Address [address] [place] [address] Care Team Providers Care Grain Thresher Name Role Phone Kranthi Macdonald MD Primary Care Provider [phone]- [phone] Encounter Details Date Type Department Care Team (Late st Contact Info) Description 03/10/2024 Lab Requisition [facility] - Main Lab [address] [facility] [place] [address] Kranthi Macdonald MD [address] [place] [address] Bacterial infection, unspecified; Urinary tract infection, site not specified; Type 2 diabetes mellitus without complications (CMS/HCC); Chronic kidney disease, unspecified Social History Tobacco Use Types Packs/Day [...] Associated Diagnosis Comments COMPLETE BLOOD COUNT Routine 03/10/2024 7:27 AM EST Bacterial infection, unspecified Urinary tract infection, site not specified Type 2 diabetes mellitus without complications (CMS/HCC) Chronic kidney disease, unspecified BASIC METABOLIC PANEL Routine 03/10/2024 7:27 AM EST Bacterial infection, unspecified Urinary tract infection, site not specified Type 2 diabetes mellitus without complications (CMS/HCC) Chronic kidney disease, unspecified documented in this encounter Results * (ABNORMAL) Basic metabolic panel (03/10/2024 7:27 AM EST) Sodium 139 133 - 145 mmol/L LAB CHEMISTRY METHOD 03/10/2024 10:52 AM [facility] Potassium 4.7 3.5 - 5.5 mmol/L LAB CHEMISTRY METHOD 03/10/2024 10:52 AM [facility] Chloride 112(H) 96 - 110 mmol/L LAB CHEMISTRY METHOD 03/10/2024 10:52 AM [facility] CO2 22 21 - 32 mmol/L LAB CHEMISTRY METHOD 03/10/2024 10:52 AM [facility] Anion Gap 5 3 - 11 LAB CHEMISTRY METHOD 03/10/2024 10:52 AM [facility] Glucose 79 70 - 100 mg/dL LAB CHEMISTRY METHOD 03/10/2024 10:52 AM [facility] BUN 28(H) 5 - 25 mg/dL LAB CHEMISTRY METHOD 03/10/2024 10:52 AM [facility] Creatinine 2.44(H) 0.50 - 1.10 mg/dL LAB CHEMISTRY METHOD 03/10/2024 10:52 AM [facility] eGFR 20(L) >=60 mL/min/1. 73m2 LAB CHEMISTRY METHOD 03/10/2024 10:52 AM [facility] Comment:Calculation based on the??Chronic Kidney Disease Epidemiology Collaboration (CKD-EPI) equation refit??without adjustment for race. BUN/Creatinine Ratio 11.5 LAB CHEMISTRY METHOD 03/10/2024 10:52 AM [facility] Calcium 8.5 8.5 - 10.5 mg/dL LAB CHEMISTRY METHOD 03/10/2024 10:52 AM [facility] Blood Venous blood specimen / Unknown Venipuncture / Unknown 03/10/2024 7:27 AM EST 03/10/2024 9:01 AM EST us Kranthi Macdonald MD LAB BLOOD ORDERABLES Final Result [facility] [address] [place] [address], [place] [phone] * (ABNORMAL) Complete blood count (03/10/2024 7:27 AM EST) WBC 2.0(L) 4.8 - 10.8 K/mcL LAB HEMETOLOGY METHOD 03/10/2024 10:41 AM [facility] RBC 2.60(L) 3.80 - 4.80 M/mcL LAB HEMETOLOGY METHOD 03/10/2024 10:41 AM [facility] Hemoglobin 7.9(L) 11.5 - 16.0 g/dL LAB HEMETOLOGY METHOD 03/10/2024 10:41 AM [facility] Hematocrit 25.4(L) 35.0 - 47.0 % LAB HEMETOLOGY METHOD 03/10/2024 10:41 AM [facility] MCV 96.9 79.0 - 98.0 FL LAB HEMETOLOGY METHOD 03/10/2024 10:41 AM [facility] MCH 30.2 27.0 - 32.0 pcg LAB HEMETOLOGY METHOD 03/10/2024 10:41 AM [facility] MCHC 31.1(L) 32.0 - 37.0 g/dL LAB HEMETOLOGY METHOD 03/10/2024 10:41 AM [facility] RDW 19.5(H) 11.0 - 15.0 % LAB HEMETOLOGY METHOD 03/10/2024 10:41 AM [facility] Platelets 67(L) 130 - 400 K/mcL LAB HEMETOLOGY METHOD 03/10/2024 10:41 AM [facility] Comment:previously verified by slide MPV 12.0(H) 7.0 - 11.0 FL LAB HEMETOLOGY METHOD 03/10/2024 10:41 AM EST [facility] NRBC 0.0 <1.0 % LAB HEMETOLOGY METHOD 03/10/2024 10:41 AM EST [facility] NRBC Absolute 0.00 <0.10 K/mcL LAB HEMETOLOGY METHOD 03/10/2024 10:41 AM EST [facility] Blood Venous blood specimen / Unknown Venipuncture / Unknown 03/10/2024 7:27 AM EST 03/10/2024 9:01 AM EST Kranthi Macdonald MD LAB BLOOD ORDERABLES Final Result [facility] [address] [place] [address], documented in this encounter Visit Diagnoses Diagnosis Bacterial infection, unspecified Urinary tract infection, site not specified Type 2 diabetes mellitus without complications (CMS/HCC) Chronic kidney disease, unspecified documented in this encounter Additional Health Concerns Infection Onset Date Last Indicated Resolved Time C. Diff Rule-Out Infection 03/21/2024 03/21/2024 0 03/21/2024 11:27 AM EST C. difficile 03/21/2024 03/21/2024 04/14/2024 7:04 PM EST documented as of this encounter Care Teams Grain Thresher Relationship Specialty Start Date End Date Kranthi Macdonald MD [address] [place] [phone] PCP - General Internal Medicine 03/10/24 documented as of this encounter
--- OUTSIDE RECORDS SUMMARY | 2024-05-18 13:03 | XMS_ITS | Encounter Summary ---
Author Organization [facility] Address [address] [place] [address] Care Team Providers Care Optometrist Name Role Phone Kranthi Macdonald MD Primary Care Provider +1- [phone] Encounter Details Date Type Department Care Team (Late st Contact Info) Description 04/28/2024 Lab Requisition [facility] - Main Lab [address] [facility] [employer] [place] [address] Kranthi Macdonald MD [address] [place], [place] [id number] Type 2 diabetes mellitus without complications (CMS/HCC); Chronic kidney disease, unspecified; Malignant neoplasm of unspecified part of unspecified bronchus or lung (CMS/HCC) Social History Tobacco Use Types Packs/Day [...] Procedure Name Priority Date/Time Associated Diagnosis Comments MANUAL DIFFERENTIAL - SYSMEX WAM Routine 04/28/2024 [...] EST Type 2 diabetes mellitus without complications ([facility]/HCC) Chronic kidney disease, unspecified Malignant neoplasm of unspecified part of unspecified bronchus or lung (CMS/HCC) BASIC METABOLIC PANEL Routine 04/28/2024 6:36 AM EST Type 2 diabetes mellitus without complications ([facility]/HCC) Chronic kidney disease, unspecified Malignant neoplasm of unspecified part of unspecified bronchus or lung (CMS/HCC) documented in this encounter Results * (ABNORMAL) Manual differential (04/28/2024 6:36 AM EST) Neutrophils % 35.0 % LAB HEMETOLOGY METHOD 04/28/2024 2:[address] [facility] Lymphocytes % 60.0 % LAB HEMETOLOGY METHOD 04/28/2024 2:[address] [facility] Monocytes % 3.0 % LAB HEMETOLOGY METHOD 04/28/2024 2:[address] [facility] Eosinophils % 1.0 % LAB HEMETOLOGY METHOD 04/28/2024 2:[address] [facility] Basophils % 0.0 % LAB HEMETOLOGY METHOD 04/28/2024 2:[address] [facility] Neutrophils Absolute Manual 0.53(L) 1.50 - 7.00 K/mcL LAB HEMETOLOGY METHOD 04/28/2024 2:[address] [facility] Lymphocytes Absolute 0.90(L) 1.00 - 5.00 K/mcL LAB HEMETOLOGY METHOD 04/28/2024 2:[address] [facility] Monocytes Absolute Manual 0.05(L) 0.20 - 1.00 K/mcL LAB HEMETOLOGY METHOD 04/28/2024 2:[address] [facility] Eosinophils Absolute Manual 0.02 0.00 - 0.50 K/[facility] LAB HEMETOLOGY METHOD 04/28/2024 2:59 PM EST [facility] Basophils Absolute Manual 0.00 0.00 - 0.20 K/mcL LAB HEMETOLOGY METHOD 04/28/2024 2:59 PM EST [facility] Rbc Morphology Consistent with indices Consistent with indices, Normal for LAB HEMETOLOGY METHOD 04/28/2024 2:59 PM EST [facility] Platelet Morphology - WAM See Note(A) Normal LAB HEMETOLOGY METHOD 04/28/2024 2:59 PM EST [facility] Comment:PLT: Normal Blood Venous blood specimen / Unknown Venipuncture / Unknown 04/28/2024 6:36 AM EST 04/28/2024 10:34 AM EST Kranthi Macdonald MD LAB BLOOD ORDERABLES Final Result [facility] [address] [place] [address], * (ABNORMAL) CBC auto differential (04/28/2024 6:36 AM EST) WBC 1.5(LL) 4.8 - 10.8 K/mcL LAB HEMETOLOGY METHOD 04/28/2024 2:[address] [facility] RBC 2.30(L) 3.80 - 4.80 M/mcL LAB HEMETOLOGY METHOD 04/28/2024 2:[address] [facility] Hemoglobin 6.7(L) 11.5 - 16.0 g/dL LAB HEMETOLOGY METHOD 04/28/2024 2:[address] [facility] Hematocrit 21.9(L) 35.0 - 47.0 % LAB HEMETOLOGY METHOD 04/28/2024 2:[address] [facility] MCV 95.6 79.0 - 98.0 FL LAB HEMETOLOGY METHOD 04/28/2024 2:59 PM EST [facility] MCH 29.3 27.0 - 32.0 pcg LAB HEMETOLOGY METHOD 04/28/2024 2:59 PM EST [facility] MCHC 30.6(L) 32.0 - 37.0 g/dL LAB HEMETOLOGY METHOD 04/28/2024 2:59 PM EST [facility] RDW 15.7(H) 11.0 - 15.0 % LAB HEMETOLOGY METHOD 04/28/2024 2:59 PM EST [facility] Platelets 43(L) 130 - 400 K/mcL LAB HEMETOLOGY METHOD 04/28/2024 2:59 PM EST [facility] Comment:reviewed by slide MPV 11.8(H) 7.0 - 11.0 FL LAB HEMETOLOGY METHOD 04/28/2024 2:59 PM EST [facility] NRBC 0.0 <1.0 % LAB HEMETOLOGY METHOD 04/28/2024 2:59 PM EST [facility] NRBC Absolute 0.00 <0.10 K/mcL LAB HEMETOLOGY METHOD 04/28/2024 2:59 PM EST [facility] Blood Venous blood specimen / Unknown Venipuncture / Unknown 04/28/2024 6:36 AM EST 04/28/2024 10:34 AM EST us Kranthi Macdonald MD LAB BLOOD ORDERABLES Final Result [facility] [address] [place] [address], * (ABNORMAL) Basic metabolic panel (04/28/2024 6:36 AM EST) Sodium 140 133 - 145 mmol/L LAB CHEMISTRY METHOD 04/28/2024 1:10 PM EST [facility] Potassium 4.2 3.5 - 5.5 mmol/L LAB CHEMISTRY METHOD 04/28/2024 1:[address] [facility] Chloride 115(H) 96 - 110 mmol/L LAB CHEMISTRY METHOD 04/28/2024 1:[address] [facility] CO2 20(L) 21 - 32 mmol/L LAB CHEMISTRY METHOD 04/28/2024 1:[address] [facility] Anion Gap 5 3 - 11 LAB CHEMISTRY METHOD 04/28/2024 1:[address] [facility] Glucose 71 70 - 100 mg/dL LAB CHEMISTRY METHOD 04/28/2024 1:[address] [facility] BUN 25 5 - 25 mg/dL LAB CHEMISTRY METHOD 04/28/2024 1:[address] [facility] Creatinine 2.02(H) 0.50 - 1.10 mg/dL LAB CHEMISTRY METHOD 04/28/2024 1:[address] [facility] eGFR 25(L) >=60 mL/min/1. 73m2 LAB CHEMISTRY METHOD 04/28/2024 1:[address] [facility] Comment:Calculation based on the??Chronic Kidney Disease Epidemiology Collaboration (CKD-EPI) equation refit??without adjustment for race. BUN/Creatinine Ratio 12.4 LAB CHEMISTRY METHOD 04/28/2024 1:[address] [facility] Calcium 8.7 8.5 - 10.5 mg/dL LAB CHEMISTRY METHOD 04/28/2024 1:[address] [facility] Blood Venous blood specimen / Unknown Venipuncture / Unknown 04/28/2024 6:36 AM EST 04/28/2024 10:34 AM EST us Kranthi Macdonald MD LAB BLOOD ORDERABLES Final Result [facility] [address] [place] [address], documented in this encounter Visit Diagnoses Diagnosis Type 2 diabetes mellitus without complications (CMS/HCC) Chronic kidney disease, unspecified Malignant neoplasm of unspecified part of unspecified bronchus or lung (CMS/HCC) documented in this encounter Care Teams Optometrist Relationship Specialty Start Date End Date Kranthi Macdonald MD [address] [place] [address] PCP - General Internal Medicine 03/10/24 documented as of this encounter
--- OUTSIDE RECORDS SUMMARY | 2024-05-18 13:03 | XMS_ITS | Encounter Summary ---
Author Organization [facility] Address [address] [place] [address] Care Team Providers Care Md Do Resident Urgent Care Name Role Phone Kranthi Macdonald MD Primary Care Provider [phone]- [phone] Encounter Details Date Type Department Care Team (Late st Contact Info) Description 05/18/2024 Lab Requisition [facility] - Main Lab [address] [facility] [place] [address] Kranthi Macdonald MD [address] [place] [address] Altered mental status, unspecified Social History Tobacco [...] Associated Diagnosis Comments COMPLETE BLOOD COUNT Routine 05/18/2024 8:19 AM EDT Altered mental status, unspecified AMMONIA Routine 05/18/2024 8:19 AM EDT Altered mental status, unspecified COMPREHENSIVE METABOLIC PANEL Routine 05/18/2024 8:19 AM EDT Altered mental status, unspecified documented in this encounter Results * Ammonia (05/18/2024 8:19 AM EDT) Pathologist [facility] Ammonia 22 11 - 35 mcmol/L LAB CHEMISTRY METHOD 05/18/2024 9:16 AM T [facility] Blood Venous blood specimen / Unknown Venipuncture / Unknown 05/18/2024 8:19 AM EDT 05/18/2024 8:58 AM EDT Kranthi Macdonald MD LAB BLOOD ORDERABLES Final Result [facility] [address] [place] [address], * (ABNORMAL) Comprehensive metabolic panel (05/18/2024 8:19 AM EDT) [facility] Sodium 143 133 - 145 mmol/L LAB CHEMISTRY METHOD 05/18/2024 12:18 PM [facility] Potassium 4.6 3.5 - 5.5 mmol/L LAB CHEMISTRY METHOD 05/18/2024 12:18 PM [facility] Chloride 115(H) 96 - 110 mmol/L LAB CHEMISTRY METHOD 05/18/2024 12:18 PM [facility] CO2 18(L) 21 - 32 mmol/L LAB CHEMISTRY METHOD 05/18/2024 12:18 PM [facility] Anion Gap 10 3 - 11 LAB CHEMISTRY METHOD 05/18/2024 12:18 PM [facility] Glucose 73 70 - 100 mg/dL LAB CHEMISTRY METHOD 05/18/2024 12:18 PM [facility] BUN 42(H) 5 - 25 mg/dL LAB CHEMISTRY METHOD 05/18/2024 12:18 PM [facility] Creatinine 2.39(H) 0.50 - 1.10 mg/dL LAB CHEMISTRY METHOD 05/18/2024 12:18 PM [facility] eGFR 21(L) >=60 mL/min/1. 73m2 LAB CHEMISTRY METHOD 05/18/2024 12:18 PM EDT [facility] Comment:Calculation based on the??Chronic Kidney Disease Epidemiology Collaboration (CKD-EPI) equation refit??without adjustment for race. BUN/Creatinine Ratio 17.6 LAB CHEMISTRY METHOD 05/18/2024 12:18 PM EDT [facility] Calcium 9.3 8.5 - 10.5 mg/dL LAB CHEMISTRY METHOD 05/18/2024 12:18 PM EDT [facility] AST (SGOT) 43(H) 10 - 42 unit/L LAB CHEMISTRY METHOD 05/18/2024 12:18 PM [facility] ALT (SGPT) 22 10 - 60 unit/L LAB CHEMISTRY METHOD 05/18/2024 12:18 PM [facility] Alkaline Phosphatase 107 42 - 121 unit/L [facility] Total Protein 4.5(L) 6.0 - 8.0 g/dL LAB CHEMISTRY METHOD 05/18/2024 12:18 PM [facility] Albumin 1.9(L) 3.2 - 5.0 g/dL LAB CHEMISTRY METHOD 05/18/2024 12:18 PM [facility] Total Bilirubin 0.7 0.0 - 1.4 mg/dL LAB CHEMISTRY METHOD 05/18/2024 12:18 PM [facility] Blood Venous blood specimen / Unknown Venipuncture / Unknown 05/18/2024 8:19 AM EDT 05/18/2024 8:58 AM EDT us Kranthi Macdonald MD LAB BLOOD ORDERABLES Final Result [facility] [address] [place] [address], * (ABNORMAL) Complete blood count (05/18/2024 8:19 AM EDT) [facility] WBC 3.1(L) 4.8 - 10.8 K/mcL LAB HEMETOLOGY METHOD 05/18/2024 11:12 AM [facility] RBC 2.70(L) 3.80 - 4.80 M/mcL LAB HEMETOLOGY METHOD 05/18/2024 11:12 AM [facility] Hemoglobin 7.9(L) 11.5 - 16.0 g/dL LAB HEMETOLOGY METHOD 05/18/2024 11:12 AM [facility] Hematocrit 25.2(L) 35.0 - 47.0 % LAB HEMETOLOGY METHOD 05/18/2024 11:12 AM [facility] MCV 92.3 79.0 - 98.0 FL LAB HEMETOLOGY METHOD 05/18/2024 11:12 AM [facility] MCH 28.9 27.0 - 32.0 pcg LAB HEMETOLOGY METHOD 05/18/2024 11:12 AM [facility] MCHC 31.3(L) 32.0 - 37.0 g/dL LAB HEMETOLOGY METHOD 05/18/2024 11:12 AM [facility] RDW 17.1(H) 11.0 - 15.0 % LAB HEMETOLOGY METHOD 05/18/2024 11:12 AM [facility] Platelets 48(L) 130 - 400 K/mcL LAB HEMETOLOGY METHOD 05/18/2024 11:12 AM [facility] Comment:previously verified by slide MPV 12.9(H) 7.0 - 11.0 FL LAB HEMETOLOGY METHOD 05/18/2024 11:12 AM [facility] NRBC 0.0 <1.0 % LAB HEMETOLOGY METHOD 05/18/2024 11:12 AM [facility] NRBC Absolute 0.00 <0.10 K/[facility] LAB HEMETOLOGY METHOD 05/18/2024 11:12 AM EDT [facility] Blood Venous blood specimen / Unknown Venipuncture / Unknown 05/18/2024 8:19 AM EDT 05/18/2024 8:58 AM EDT us Kranthi Macdonald MD LAB BLOOD ORDERABLES Final Result [facility] [address] [place] [address], documented in this encounter Visit Diagnoses Diagnosis Altered mental status, unspecified documented in this encounter Care Teams Md Do Resident Urgent Care Relationship Specialty Start Date End Date Kranthi Macdonald MD [address] [place] [id number] PCP - General Internal Medicine 03/10/24 documented as of this encounter
--- OUTSIDE RECORDS SUMMARY | 2024-05-18 13:03 | XMS_ITS | Encounter Summary ---
Author Organization [facility] Address [address] [place] [address] Care Team Providers Care Laundry Or Dry Cleaners Counter Clerk Name Role Phone Kranthi Macdonald MD Primary Care Provider [phone]- [phone] Encounter Details Date Type Department Care Team (Late st Contact Info) Description 01/30/2024 Lab Requisition [facility] - Main Lab [address] [place] [address] Kranthi Macdonald MD [address] [place] [address] Anemia, unspecified Social History Tobacco Use Types Packs/Day [...] Associated Diagnosis Comments COMPLETE BLOOD COUNT Routine 01/30/2024 7:55 AM EST Anemia, unspecified COMPREHENSIVE METABOLIC PANEL Routine 01/30/2024 7:55 AM EST Anemia, unspecified documented in this encounter Results * (ABNORMAL) Comprehensive metabolic panel (01/30/2024 7:55 AM EST) Sodium 142 133 - 145 mmol/L LAB CHEMISTRY METHOD 01/30/2024 11:24 AM EST [facility] Potassium 4.5 3.5 - 5.5 mmol/L LAB CHEMISTRY METHOD 01/30/2024 11:24 AM [facility] Chloride 112(H) 96 - 110 mmol/L LAB CHEMISTRY METHOD 01/30/2024 11:24 AM [facility] CO2 26 21 - 32 mmol/L LAB CHEMISTRY METHOD 01/30/2024 11:24 AM [facility] Anion Gap 4 3 - 11 LAB CHEMISTRY METHOD 01/30/2024 11:24 AM [facility] Glucose 75 70 - 100 mg/dL LAB CHEMISTRY METHOD 01/30/2024 11:24 AM [facility] BUN 20 5 - 25 mg/dL LAB CHEMISTRY METHOD 01/30/2024 11:24 AM [facility] Creatinine 1.90(H) 0.50 - 1.10 mg/dL LAB CHEMISTRY METHOD 01/30/2024 11:24 AM [facility] eGFR 27(L) >=60 mL/min/1. 73m2 LAB CHEMISTRY METHOD 01/30/2024 11:24 AM [facility] Comment:Calculation based on the??Chronic Kidney Disease Epidemiology Collaboration (CKD-EPI) equation refit??without adjustment for race. BUN/Creatinine Ratio 10.5 LAB CHEMISTRY METHOD 01/30/2024 11:24 AM [facility] Calcium 9.1 8.5 - 10.5 mg/dL LAB CHEMISTRY METHOD 01/30/2024 11:24 AM [facility] AST (SGOT) 15 10 - 42 unit/L LAB CHEMISTRY METHOD 01/30/2024 11:24 AM [facility] ALT (SGPT) 11 10 - 60 unit/L LAB CHEMISTRY METHOD 01/30/2024 11:24 AM [facility] Alkaline Phosphatase 78 42 - 121 unit/L LAB CHEMISTRY METHOD 01/30/2024 11:24 AM [facility] Total Protein 4.6(L) 6.0 - 8.0 g/dL LAB CHEMISTRY METHOD 01/30/2024 11:24 AM [facility] Albumin 2.1(L) 3.2 - 5.0 g/dL LAB CHEMISTRY METHOD 01/30/2024 11:24 AM [facility] Total Bilirubin 0.3 0.0 - 1.4 mg/dL LAB CHEMISTRY METHOD 01/30/2024 11:24 AM [facility] Blood Venous blood specimen / Unknown Venipuncture / Unknown 01/30/2024 7:55 AM EST 01/30/2024 10:26 AM EST Kranthi Macdonald MD LAB BLOOD ORDERABLES Final Result [facility] [address] [place] [address], * (ABNORMAL) Complete blood count (01/30/2024 7:55 AM EST) WBC 4.0(L) 4.8 - 10.8 K/mcL LAB HEMETOLOGY METHOD 01/30/2024 10:54 AM [facility] RBC 2.60(L) 3.80 - 4.80 M/mcL LAB HEMETOLOGY METHOD 01/30/2024 10:54 AM [facility] Hemoglobin 7.5(L) 11.5 - 16.0 g/dL LAB HEMETOLOGY METHOD 01/30/2024 10:54 AM [facility] Hematocrit 24.2(L) 35.0 - 47.0 % LAB HEMETOLOGY METHOD 01/30/2024 10:54 AM [facility] MCV 93.1 79.0 - 98.0 FL LAB HEMETOLOGY METHOD 01/30/2024 10:54 AM [facility] MCH 28.8 27.0 - 32.0 pcg LAB HEMETOLOGY METHOD 01/30/2024 10:54 AM EST [facility] MCHC 31.0(L) 32.0 - 37.0 g/dL LAB HEMETOLOGY METHOD 01/30/2024 10:54 AM [facility] RDW 17.6(H) 11.0 - 15.0 % LAB HEMETOLOGY METHOD 01/30/2024 10:54 AM EST [facility] Platelets 79(L) 130 - 400 K/mcL LAB HEMETOLOGY METHOD 01/30/2024 10:54 AM [facility] Comment:previously verified by slide MPV 11.0 7.0 - 11.0 FL LAB HEMETOLOGY METHOD 01/30/2024 10:54 AM EST [facility] NRBC 0.0 <1.0 % LAB HEMETOLOGY METHOD 01/30/2024 10:54 AM [facility] NRBC Absolute 0.00 <0.10 K/mcL LAB HEMETOLOGY METHOD 01/30/2024 10:54 AM [facility] Blood Venous blood specimen / Unknown Venipuncture / Unknown 01/30/2024 7:55 AM EST 01/30/2024 10:26 AM EST us Kranthi Macdonald MD LAB BLOOD ORDERABLES Final Result [facility] [address] [place] [address], documented in this encounter Visit Diagnoses Diagnosis Anemia, unspecified documented in this encounter Additional Health Concerns Infection Onset Date Last Indicated Resolved Time C. Diff Rule-Out Infection 03/21/2024 03/21/2024 0 03/21/2024 11:27 AM EST C. difficile 03/21/2024 03/21/2024 04/14/2024 7:04 PM EST documented as of this encounter Care Teams Laundry Or Dry Cleaners Counter Clerk Relationship Specialty Start Date End Date Kranthi Macdonald MD [address] [place] [address] PCP - General Internal Medicine 03/10/24 documented as of this encounter
--- OUTSIDE RECORDS SUMMARY | 2024-05-18 13:03 | XMS_ITS | Encounter Summary ---
Author Organization [facility] Address [address] [place] [address] Care Team Providers Care Automotive Sales Representative Name Role Phone Kranthi Macdonald MD Primary Care Provider +1- [phone] Encounter Details Date Type Department Care Team (Late st Contact Info) Description 01/14/2024 Lab Requisition [facility] - Main Lab [address] [facility] [place] [address] Kranthi Macdonald MD [address] [place] [address] Malignant neoplasm of unspecified part of unspecified [...] Comments MANUAL DIFFERENTIAL - SYSMEX WAM Routine 01/16/2024 7:37 AM EST Malignant neoplasm of unspecified part of unspecified bronchus or lung (CMS/HCC) CBC WITH AUTO DIFFERENTIAL Routine 01/16/2024 7:37 AM EST Malignant neoplasm of unspecified part of unspecified bronchus or lung (CMS/HCC) CBC AND DIFFERENTIAL Routine 01/16/2024 7:37 AM EST Malignant neoplasm of unspecified part of unspecified bronchus or lung (CMS/HCC) COMPREHENSIVE METABOLIC PANEL Routine 01/16/2024 7:37 AM EST Malignant neoplasm of unspecified part of unspecified bronchus or lung (CMS/HCC) documented in this encounter Results * (ABNORMAL) Manual differential (01/16/2024 7:37 AM EST) Neutrophils % 16.0 % LAB HEMETOLOGY METHOD 01/16/2024 2:06 PM [facility] Bands % 1.0 % LAB HEMETOLOGY METHOD 01/16/2024 2:06 PM [facility] Lymphocytes % 72.0 % LAB HEMETOLOGY METHOD 01/16/2024 2:06 PM [facility] Monocytes % 10.0 % LAB HEMETOLOGY METHOD 01/16/2024 2:06 PM [facility] Eosinophils % 1.0 % LAB HEMETOLOGY METHOD 01/16/2024 2:06 PM [facility] Basophils % 0.0 % LAB HEMETOLOGY METHOD 01/16/2024 2:06 PM [facility] Neutrophils Absolute Manual 0.21(L) 1.50 - 7.00 K/mcL LAB HEMETOLOGY METHOD 01/16/2024 2:06 PM [facility] Bands Absolute Manual 0.01(H) 0.00 - 0.00 K/mcL LAB HEMETOLOGY METHOD 01/16/2024 2:06 PM [facility] Lymphocytes Absolute 0.94(L) 1.00 - 5.00 K/mcL LAB HEMETOLOGY METHOD 01/16/2024 2:06 PM [facility] Monocytes Absolute Manual 0.13(L) 0.20 - 1.00 K/mcL LAB HEMETOLOGY METHOD 01/16/2024 2:06 PM [facility] Eosinophils Absolute Manual 0.01 0.00 - 0.50 K/[facility] LAB HEMETOLOGY METHOD 01/16/2024 2:06 PM EST [facility] Basophils Absolute Manual 0.00 0.00 - 0.20 K/[facility] LAB HEMETOLOGY METHOD 01/16/2024 2:06 PM EST [facility] Rbc Morphology Consistent with indices Consistent with indices, Normal for [place] LAB HEMETOLOGY METHOD 01/16/2024 2:06 PM EST [facility] Platelet Morphology - WAM Normal Normal LAB HEMETOLOGY METHOD 01/16/2024 2:06 PM [facility] Blood Venous blood specimen / Unknown Venipuncture / Unknown 01/16/2024 7:37 AM EST 01/16/2024 11:22 AM EST Kranthi Macdonald MD LAB BLOOD ORDERABLES Final Result [facility] [address] [place] [address], * (ABNORMAL) CBC auto differential (01/16/2024 7:37 AM EST) WBC 1.3(LL) 4.8 - 10.8 K/[facility] LAB HEMETOLOGY METHOD 01/16/2024 2:06 PM [facility] RBC 2.20(L) 3.80 - 4.80 M/[facility] LAB HEMETOLOGY METHOD 01/16/2024 2:06 PM [facility] Hemoglobin 6.4(LL) 11.5 - 16.0 g/dL LAB HEMETOLOGY METHOD 01/16/2024 2:06 PM [facility] Hematocrit 21.5(L) 35.0 - 47.0 % LAB HEMETOLOGY METHOD 01/16/2024 2:06 PM [facility] MCV 96.8 79.0 - 98.0 FL LAB HEMETOLOGY METHOD 01/16/2024 2:06 PM EST [facility] MCH 28.8 27.0 - 32.0 pcg LAB HEMETOLOGY METHOD 01/16/2024 2:06 PM EST [facility] MCHC 29.8(L) 32.0 - 37.0 g/dL LAB HEMETOLOGY METHOD 01/16/2024 2:06 PM EST [facility] RDW 19.2(H) 11.0 - 15.0 % LAB HEMETOLOGY METHOD 01/16/2024 2:06 PM [facility] Platelets 11(LL) 130 - 400 K/mcL LAB HEMETOLOGY METHOD 01/16/2024 2:06 PM [facility] Comment:previously verified by slide MPV 13.5(H) 7.0 - 11.0 FL LAB HEMETOLOGY METHOD 01/16/2024 2:06 PM EST [facility] NRBC 0.0 <1.0 % LAB HEMETOLOGY METHOD 01/16/2024 2:06 PM [facility] NRBC Absolute 0.00 <0.10 K/mcL LAB HEMETOLOGY METHOD 01/16/2024 2:06 PM [facility] Blood Venous blood specimen / Unknown Venipuncture / Unknown 01/16/2024 7:37 AM EST 01/16/2024 11:22 AM EST us Kranthi Macdonald MD LAB BLOOD ORDERABLES Final Result [facility] [address] [place] [address], * (ABNORMAL) Comprehensive metabolic panel (01/16/2024 7:37 AM EST) Sodium 142 133 - 145 mmol/L LAB CHEMISTRY METHOD 01/16/2024 12:01 PM EST [facility] Potassium 4.4 3.5 - 5.5 mmol/L LAB CHEMISTRY METHOD 01/16/2024 12:01 PM [facility] Chloride 116(H) 96 - 110 mmol/L LAB CHEMISTRY METHOD 01/16/2024 12:01 PM [facility] CO2 20(L) 21 - 32 mmol/L LAB CHEMISTRY METHOD 01/16/2024 12:01 PM [facility] Anion Gap 6 3 - 11 LAB CHEMISTRY METHOD 01/16/2024 12:01 PM [facility] Glucose 85 70 - 100 mg/dL LAB CHEMISTRY METHOD 01/16/2024 12:01 PM [facility] BUN 28(H) 5 - 25 mg/dL LAB CHEMISTRY METHOD 01/16/2024 12:01 PM [facility] Creatinine 1.50(H) 0.50 - 1.10 mg/dL LAB CHEMISTRY METHOD 01/16/2024 12:01 PM [facility] eGFR 36(L) >=60 mL/min/1. 73m2 LAB CHEMISTRY METHOD 01/16/2024 12:01 PM [facility] Comment:Calculation based on the??Chronic Kidney Disease Epidemiology Collaboration (CKD-EPI) equation refit??without adjustment for race. BUN/Creatinine Ratio 18.7 LAB CHEMISTRY METHOD 01/16/2024 12:01 PM [facility] Calcium 9.2 8.5 - 10.5 mg/dL LAB CHEMISTRY METHOD 01/16/2024 12:01 PM [facility] AST (SGOT) 8(L) 10 - 42 unit/L LAB CHEMISTRY METHOD 01/16/2024 12:01 PM [facility] ALT (SGPT) 9(L) 10 - 60 unit/L LAB CHEMISTRY METHOD 01/16/2024 12:01 PM [facility] Alkaline Phosphatase 63 42 - 121 unit/L LAB CHEMISTRY METHOD 01/16/2024 12:01 PM EST [facility] Total Protein 4.4(L) 6.0 - 8.0 g/dL LAB CHEMISTRY METHOD 01/16/2024 12:01 PM EST [facility] Albumin 2.2(L) 3.2 - 5.0 g/dL LAB CHEMISTRY METHOD 01/16/2024 12:01 PM EST [facility] Total Bilirubin 0.3 0.0 - 1.4 mg/dL LAB CHEMISTRY METHOD 01/16/2024 12:01 PM EST [facility] Blood Venous blood specimen / Unknown Venipuncture / Unknown 01/16/2024 7:37 AM EST 01/16/2024 11:22 AM EST Kranthi Macdonald MD LAB BLOOD ORDERABLES Final Result [facility] [address] [place] [address], documented in this encounter Visit Diagnoses Diagnosis Malignant neoplasm of unspecified part of unspecified bronchus or lung (CMS/HCC) documented in this encounter Additional Health Concerns Infection Onset Date Last Indicated Resolved Time C. Diff Rule-Out Infection 03/21/2024 03/21/2024 0 03/21/2024 11:27 AM EST C. difficile 03/21/2024 03/21/2024 04/14/2024 7:04 PM EST documented as of this encounter Care Teams Automotive Sales Representative Relationship Specialty Start Date End Date Kranthi Macdonald MD [address] [place] [address] PCP - General Internal Medicine 03/10/24 documented as of this encounter
[2024-05-18 13:11] LABS: Neutrophils Percent Manual 56 % (45-73)
[2024-05-18 13:12] LABS: Atypical Lymph Absolute Manual 0.1 x10*3/uL; Atypical Lymphs Percent Manual 2 % (0-6); Band Neutrophils Percent 16 % (3-5); Lymphocytes Absolute Manual 0.5 X10*3/uL (1.2-4.9); Lymphocytes Percent Manual 17 % (20-40); Metamyelocytes Absolute 0.1 X10*3/uL; Metamyelocytes Percent 2 %; Monocytes Absolute Manual 0.2 X10*3/uL (0.1-1.2); Monocytes Percent Manual 7 % (2-11)
[2024-05-18 13:13] LABS: Dohle Bodies PRESENT; Macrocytosis 1+ (5-14) /OIF; Microcytosis 1+ (5-14) /OIF; Platelet Estimate DECREASED (NORMAL); Platelet Morphology Comment NORM; RBC Morphology NOTED; Spherocytes 1+ (0-2) /OIF; Toxic Vacuolation PRESENT
[2024-05-18] MEDS: Lactated Ringers 1,000 ML 999 ML IV ×2 (13:47→15:55)
[2024-05-18] MEDS: Piperacillin Sodium/Tazobactam 4.5 GM in 0.9 % Sodium Chloride 100 ML IV (13:47)
[2024-05-18] MEDS: vancomycin HCL 1,500 MG in 0.9 % Sodium Chloride 500 ML 333.33 MG IV (13:47)
--- NOTE | 2024-05-18 14:34 | PM.IMHP ---
History of Present Illness Date of Service: 05/18/24 Attending physician on admission: Rebecca Doyle Chief Complaint: ams 73-year-old female with a past medical history significant for COPD unspecified, CKD stage 4, nonalcoholic cirrhosis, hyperlipidemia breast cancer s/p partial mastectomy and radiation, small-cell lung cancer being treated with chemotherapy by Dr. Jesus, chronic hypoxemic respiratory failure, and chronic anemia and HTN, who presented to the ED today with confusion and lethargy. She presents from a SNF and reportedly has been eating very little and not taking the PO vancomycin she has been on (dx 03/21- on taper no longer having diarrhea). She has been less responsive that usual, markedly different from baseline which is A&Ox4. No fevers reported or worsening hypoxia. The patient is unable to provider history. She was last given her chemo, Lurbinectin, on 05/07. On arrival blood pressure is soft at 93/51 which improved to 1 14/60 with IV fluids. Vitals otherwise stable. She remains on baseline oxygen, 2 L via nasal cannula. She is pancytopenic with WBC 2.8, H/H 8.4/27.0%, platelets 45. Bands 16%. Renal function consistent with baseline with creatinine 2.29. Electrolyte levels normal except for chloride 119, CO2 16. VBG with pH 7.37, pCO2 20, HCO3 12. Repeat pending. PT 20.0, INR 1.7. Initial troponin 74.7, repeat 63.8. CRP 22.71. BNP 712. Procalcitonin pending. Negative for COVID-19, RSV, influenza. CXR shows left lung perihilar consolidation consistent with pneumonia. EKG shows NSR with previously noted septal infarct. In the ED, has received 1 L IV LR, IV Zosyn, IV vancomycin. Review of Systems Review of Systems: Yes Unobtainable due to mental status [facility] Medical History (Updated 05/18/24 @ 16:15 by BRANDON Chang) Diabetes Weakness Difficulty in walking, not elsewhere classified Muscle weakness (generalized) Need for assistance with personal care Other cirrhosis of liver Other cerebral infarction due to occlusion or stenosis of small artery Cerebral infarction, unspecified Unspecified viral hepatitis C without hepatic coma Personal history of nicotine dependence Unspecified asthma, uncomplicated Other irritable bowel syndrome Personal history of malignant neoplasm of breast Hyperlipidemia, unspecified Essential (primary) hypertension Malignant neoplasm of unspecified part of unspecified bronchus or lung Bacteremia Pancytopenia Chronic diarrhea CKD (chronic kidney disease) Breast cancer HTN (hypertension) HBP (high blood pressure) Surgical History H/O hernia repair H/O breast surgery History of total knee replacement Social History Household Members: None Housing: Intermediate Do you presently have visiting nurse or other home services: Yes Alcohol intake: never Comment: medicated Patient Tobacco Use Status: Former Tobacco user Tobacco use type: Cigarette Cigarette Packs Per Day: 1 Cigarettes Per Day: 20.0 Years Smoked: 50 e-Cigarette/Vaping Use: Never Used Second Hand Smoke Exposure: No Substance Use Type: Marijuana Advance Directives Date on File: 10/25/23 service: No Current occupational status: retired and disabled Meds Allergies Allergy/AdvReac Type Severity Reaction Status Date / Time carisoprodol [From Soma] Allergy Severe Hives Verified 05/18/24 11:41 codeine Allergy Severe Itching Verified 05/18/24 11:41 Home Medications ?Medication ?Instructions ?Recorded ?Confirmed ?Last Taken ?Type acetaminophen 325 mg tablet 650 mg PO Q6H PRN Pain/Fever 11/14/23 05/18/24 Unknown History bisacodyl 10 mg rectal suppository 10 mg TX DAILY PRN Constipation 11/14/23 05/18/24 Unknown History carvedilol 12.5 mg tablet 12.5 mg PO BID 11/14/23 05/18/24 03/10/24 History folic acid 1 mg tablet 1 mg PO DAILY 11/14/23 05/18/24 Unknown History hydralazine 100 mg tablet 100 mg PO BID 11/14/23 05/18/24 Unknown History hydromorphone 2 mg tablet 2 mg PO Q6H PRN Pain, Moderate 11/14/23 05/18/24 Unknown History hydromorphone 2 mg tablet 4 mg PO Q6H PRN Pain, Severe 11/14/23 05/18/24 03/10/24 History ipratropium 0.5 mg-albuterol 3 mg 3 ml inhalation Q4H PRN Shortness 11/14/23 05/18/24 Unknown History (2.5 mg base)/3 mL nebulization Of Breath soln magnesium hydroxide 400 mg/5 mL 30 ml PO DAILY PRN Constipation 11/14/23 05/18/24 Unknown History oral suspension (Milk of Magnesia) ondansetron HCl 8 mg tablet 8 mg PO Q8H PRN Nausea And Vomiting 11/14/23 05/18/24 Unknown History polyethylene glycol 3350 17 17 g PO DAILY 11/14/23 05/18/24 Unknown History gram/dose oral powder (Miralax) sennosides 8.6 mg tablet (senna) 17.2 mg PO BEDTIME 11/14/23 05/18/24 Unknown History sodium phosphates 19 gram-7 118 ml TX DAILY PRN Constipation 11/14/23 05/18/24 Unknown History gram/118 mL enema (Fleet Enema) thiamine HCl (vitamin B1) 100 mg 100 mg PO DAILY 11/14/23 05/18/24 Unknown History tablet trazodone 100 mg tablet 100 mg PO BEDTIME 11/14/23 05/18/24 Unknown History trazodone 50 mg tablet 50 mg PO BEDTIME 11/14/23 05/18/24 Unknown History acetaminophen 325 mg tablet 650 mg PO DAILY pain 02/24/24 05/18/24 03/10/24 History clonazepam 0.5 mg tablet 0.5 mg PO BEDTIME PRN Muscle Spasm 02/24/24 05/18/24 Unknown History melatonin 10 mg tablet 10 mg PO BEDTIME PRN Sleep 02/24/24 05/18/24 Unknown History fluticasone furoate 50 1 inh inhalation DAILY 05/18/24 05/18/24 Unknown History mcg-vilanterol 25 mcg/dose inhalation powder (Breo Ellipta) sertraline 25 mg tablet 75 mg PO DAILY 05/18/24 05/18/24 Unknown History vancomycin 125 mg capsule 125 mg PO Q48H 05/18/24 05/18/24 Unknown History Physical Exam Vital Signs and Narrative: Vital Signs: Last Vital Signs Temp 98.5 F 05/18/24 11:16 Pulse 80 05/18/24 11:16 Resp 16 05/18/24 11:16 BP 93/51 L 05/18/24 11:16 Pulse Ox 94 05/18/24 11:16 O2 Del Method Nasal Cannula 05/18/24 11:16 Oxygen Flow Rate 2 05/18/24 11:16 BMI result Body Mass Index 25.5 Constitutional - Awake but weak appearing, cachectic, No apparent distress Eyes - PERRLA, EOMI Cardiovascular - S1S2, RRR, No edema Respiratory - Normal lung expansion, Normal respiratory effort, No respiratory distress, bilateral wheezing diffusely with scattered crackles Gastrointestinal - NT / ND; +BS; No rebound or guarding Extremities - no calf tenderness bilaterally, no swelling Skin - Warm/Dry Neurological - weak appearing and oriented to self only Results Labs 05/18/24 12:07 05/18/24 12:07 Labs: Laboratory Results - last 24 hr 05/18/24 05/18/24 12:07 12:29 MCV 91.2 MCH 28.4 MCHC 31.1 RDW 17.1 H Plt Count 45 L D MPV 11.6 Immature Gran % (Auto) Cancelled Neut % (Auto) Cancelled Lymph % (Auto) Cancelled Mathews % (Auto) Cancelled Eos % (Auto) Cancelled Baso % (Auto) Cancelled Lymph # (Auto) Cancelled Mathews # (Auto) Cancelled Eos # (Auto) Cancelled Baso # (Auto) Cancelled Abs Immat Gran (auto) Cancelled Absolute Neuts (auto) Cancelled Absolute Nucleated RBC 0.000 Nucleated RBC % (auto) 0.0 Neutrophils % (Manual) 56 Band Neutrophils % 16 H Lymphocytes % (Manual) 17 L Atypical Lymphs % (Man) 2 Monocytes % (Manual) 7 Metamyelocytes % 2 Abs Neuts (Manual) 2.0 Lymphocytes # (Manual) 0.5 L Atyp Lymphs # (Manual) 0.1 Monocytes # (Manual) 0.2 Metamyelocytes # 0.1 Toxic Vacuolation PRESENT Dohle Bodies PRESENT Platelet Estimate DECREASED Plt Morphology Comment NORM RBC Morphology NOTED Microcytosis 1+ (5-14) Macrocytosis 1+ (5-14) Spherocytes 1+ (0-2) PT 20.0 H D INR 1.7 H VBG pH 7.37 VBG pCO2 20 VBG pO2 194 VBG HCO3 12 L VBG O2 Saturation TNP VBG Base Excess -11.9 Anion Gap 12 Estim Creat Clear Calc 16.5 Estimated GFR 21 Random Glucose 79 Lactic Acid 1.7 Calcium 9.1 Magnesium 1.8 Total Bilirubin 0.9 Direct Bilirubin 0.5 AST 59 H ALT 18 Alkaline Phosphatase 103 C-Reactive Protein 22.71 H B-Natriuretic Peptide 710 H Total Protein 5.3 L Albumin 2.3 L Lipase < 4 L Influenza Type A (PCR) NEGATIVE Influenza Type B (PCR) NEGATIVE RSV RNA Qual (PCR) NEGATIVE SARS-CoV-2 RNA (RT-PCR) NEGATIVE Imaging Radiologist's Impressions: Impressions Chest X-Ray 05/18/24 12:30 IMPRESSION: 1. Left lung perihilar consolidation consistent with pneumonia. No effusions. Electronically signed by: Abrahan Lyon MD 05/18/2024 12:55 PM EDT RP Assessment and Plan (1) Pneumonia: Status: Acute (2) Metabolic encephalopathy: Status: Acute Plan 73-year-old female with a past medical history significant for COPD unspecified, CKD stage 4, nonalcoholic cirrhosis, hyperlipidemia breast cancer s/p partial mastectomy and radiation, yzm-vcezasn-opiqobngz type 2 diabetes, small-cell lung cancer being treated with chemotherapy by Dr. Jesus, chronic hypoxemic respiratory failure, and chronic anemia and HTN admitted for pneumonia in immunocompromised patient with metabolic encephalopathy. # acute pneumonia with acute metabolic encephalopathy -CXR with left lung perihilar consolidation -Neutropenia and bandemia chronic r/t malignancy. No sepsis/severe sepsis -given immunocompromised status/residing in SNF, will cover broadly with IV Zosyn and vancomycin (initiated 05/18) -DuoNebs p.r.n. -strep pneumo antigen, Legionella antigen, MRSA nasal swab, sputum culture pending -follow CBC, cultures -monitor mentation-baseline A&O x4 -Keep NPO for now until mentation improves # chronic hypoxemic respiratory failure related to COPD and small cell lung cancer -continue baseline O2, no acute COPD exacerbation -continue home inhalers, albuterol p.r.n. # small-cell lung cancer -oncology consult -Lurbinectin last given 05/07 -continue pain management # wci-jcuvsqv-vbmgeeosy type 2 diabetes -POC glucose, sliding scale -keep NPO for now until mentation improves # CKD stage 4 -renal function baseline, variations in creatinine, but no DON # chronic pancytopenia -related to malignancy # hypertension -blood pressure is borderline, hold antihypertensives right now # C diff infection -diagnosed 03/21 -continue vancomycin taper DVT prophylaxis- SCPs (no anticoagulant due to thrombocytopenia) Do not resuscitate-intubation/ventilation okay per MOLST form Patient requires inpatient stay at least 2 midnights for management of pneumonia in immunocompromised person with acute metabolic encephalopathy requiring IV antibiotics and close monitoring of mentation and vital signs Quality Stroke Does the patient have a stroke diagnosis?: No VTE Prior VTE?: No VTE Risk Level:: Medical - moderate - high VTE Device Contraindication: Treatment Not Indicated VTE Drug Contraindication: N/A - Med Ordered
[2024-05-18 15:02] LABS: Troponin-I High Sensitivity 63.8 ng/L (<3.5-17.0)
--- NOTE | 2024-05-18 16:02 | PC.NURSE ---
Pool Romero MD notified re: low BP
--- NOTE | 2024-05-18 16:08 | PHA.MEDREC ---
Addendum entered by Liz Montesinos RPh 05/18/24 16:23: [facility] reviewed Original Note: Pharmacy Consult ? Medication Reconciliation Pharmacy has completed the medication reconciliation. Utilized list from [facility].
--- NOTE | 2024-05-18 16:09 | PHA.PROG ---
Admission Date/Time: Indication: RESPIRATORY Weight in k.3 kg Adjusted body weight in Kg: [place] body weight in Kg: Obesity Dosing Indication % IBW: Serum Creatinine - Last 168 Hours 05/18/24 12:07 Creatinine 2.29 H Estimated CrCl and GFR - Last 168 Hours 05/18/24 12:07 Estim Creat Clear Calc 16.5 Estimated GFR 21 Vancomycin Loading Dose: 1500 MG Current Vancomycin Dosing Regimen: 500 MG Q24H Vancomycin Monitoring using AUC goal of 400 - 600 range with trough as surrogate marker: VWZ=915 TROUGH=16.5 Date and Time for next Vancomycin Level to be drawn: 05/20/24 @1200 Pharmacist Comments on Vancomycin Plan: Vancomycin dosing will take advantage of [employer] as a clinical decision support tool that uses Bayesian modeling to calculate individual patient's pharmacokinetic parameters and forecast the patient's drug concentration time course with the target goal AUC 24 range of 400 - 600 mg/L/hr.
[2024-05-18] MEDS: Albuterol/Iprat 2.5/0.5MG 3 ML AMPUL.NEB INHALE ×2 (16:19→20:18)
--- NOTE | 2024-05-18 17:16 | PC.NURSE ---
Pt. 75% SPO2 with great pleth. Pt. placed on 15L non-rebreather with improvement to 90%. Pool Romero MD to bedside. MD ordered HF O2 - respiratory to bedside and pt. is on 75% 45L high flow. Pt.'s port also accessed by this RN at bedside with great blood return.
--- NOTE | 2024-05-18 18:37 | PM.EVENT ---
Event Note Date of Service: 05/18/24 Event Note: Patient is a 73 Y F w/ hypertension, hyperlipidemia, chronic renal insufficiency, non-alcoholic cirrhosis, prior breast cancer, COPD, and active metastatic small-cell lung cancer followed by Dr. Jesus, c/b chronic hypoxic respiratory failure, presenting initially to emergency department on 05/18 w/ failure to thrive; work-up suggestive of pneumonia, initially admitted to medicine, though developed hypotension and hypoxia, prompting ICU admission N: encephalopathy, likely toxic-metabolic, to monitor closely CV: intermittent hypotension, c/f septic shock, norepinephrine gtt as needed R: acute on chronic hypoxic respiratory failure d/t pneumonia, small-cell lung cancer, COPD; HFNC, wean as tolerated GI: NPO while encephalopathic, advance as tolerated : chronic renal insuffciency, to closely monitor renal indices, electrolytes H: chronic leukopenia; chemical DVT prophylaxis w/ heparin SQ ID: pneumonia, empiric vanc/zosyn; to follow-up BCx 05/17 E: to monitor hypo-/hyper-glycemia P: no acute issues Time Spent With Patient Time: Total time managing care of this patient today ____ minutes.
[2024-05-18 18:45] LABS: ABG Base Excess -7.7 mmol/L; ABG HCO3 18 mmol/L (22-26); ABG pCO2 38 mmHg (32-45); ABG pH 7.27 (7.35-7.45); ABG pO2 136 mmHg (83-108)
[2024-05-18 19:32] LABS: Procalcitonin 15.12 ng/mL
[2024-05-18] MEDS: 0.9 % Sodium Chloride Flush 3 ML SYRINGE IVFLUSH (19:47)
[2024-05-18 20:01] LABS: VBG Base Excess -7.5 mmol/L; VBG HCO3 17 mmol/L (22-26); VBG pCO2 30 mmHg; VBG pH 7.34 (7.32-7.43); VBG pO2 182 mmHg
[2024-05-18 20:03] LABS: Venous Blood Gas Refer to POC result
[2024-05-18 20:16] LABS: Glucose, Whole Blood 69 mg/dL (60-115)
[2024-05-18] MEDS: Dextrose 50 % 25 GM/50 ML SYRINGE IVPUSH (20:18)
[2024-05-18 20:43] LABS: Glucose, Whole Blood 190 mg/dL (60-115)
[2024-05-18 20:53] LABS: VBG Base Excess -7.9 mmol/L; VBG HCO3 18 mmol/L (22-26); VBG pCO2 38 mmHg; VBG pH 7.27 (7.32-7.43); VBG pO2 41 mmHg
--- NOTE | 2024-05-18 21:01 | W.MHC.ACPN ---
Advanced Care Planning Note Advanced Care Planning Note Discussed with: family member(s) Time spent (in minutes): 15 Narrative: Patient's son Ross, who was the healthcare proxy was updated on the patient's condition. Code status verified. The patient remains a DNR, however, if ventilation becomes a problem he would like her to be intubated. Problems Discussed (1) Pneumonia: (2) Metabolic encephalopathy:
[2024-05-18] MEDS: Sodium Bicarbonate 8.4% 50 MEQ/50 ML SYRINGE IVPUSH (21:21)
[2024-05-18] MEDS: Norepinephrine Bitartrate/D5W 8 MG/250 ML PLAST..BAG 5.77 MG IVCONT (23:47)
[2024-05-19] VITALS (73 sets, daily range): BP systolic 68–151; BP diastolic 26–78; PULSE 82–116; RESP 12–35; TEMP 32–38.1; O2SAT 89–99; BMI 26.2
[2024-05-19] MEDS: propofoL 200 MG/20 ML VIAL 50 MG IVPUSH (00:05)
[2024-05-19] MEDS: propofoL 1,000 MG/100 ML VIAL 11.07 MG IVCONT (00:06)
--- NOTE | 2024-05-19 00:18 | P.PCNCC_ITS ---
Procedures Date of Service Date of Service: 05/19/24 Intubation Intubation Comments: The patient developed progressive respiratory fatigue with agonal breathing, somnolence, and hypoxemia, despite high-flow 100%. She was preoxygenated with the Ambu bag 100%. RSI was carried out with the meds below. Glottis was easily visualized with the 4. [place] scope and the trachea was intubated with a 6.0 ET tube via indirect video visualization, atraumatic. ?BSBE, +CO2, SpO2 maintained. The tube was secured at 22 at the upper lip. The patient tolerated the procedure well with no complications.? Placement confirmed with chest x-ray. Consent for Procedure: Emergent-no informed consent obtained (Pt's son Ross who is the HCP informed and in agreement with plan of care. ) Time out performed: Yes Sedative: propofol Mg given: 50 Laryngoscope: fiber optic video scope ET tube size: 6 ET tube uncuffed: No Tube secured depth (cm): 22 Tube secured location: lips Tube placement confirmation: visualized tube passing through cords, equal breath sounds bilaterally, no breath sounds over epigastrium and confirmation by capnometry Patient tolerated procedure: well and no complications Intubation complications: none
[2024-05-19 00:23] LABS: Glucose, Whole Blood 71 mg/dL (60-115)
[2024-05-19 00:24] LABS: VBG Base Excess -5.5 mmol/L; VBG HCO3 20 mmol/L (22-26); VBG pCO2 44 mmHg; VBG pH 7.27 (7.32-7.43); VBG pO2 51 mmHg
[2024-05-19] MEDS: Dextrose 50 % 25 GM/50 ML SYRINGE IVPUSH (00:29)
[2024-05-19 00:55] LABS: Glucose, Whole Blood 168 mg/dL (60-115)
[2024-05-19] MEDS: Piperacillin Sodium/Tazobactam 4.5 GM in 0.9 % Sodium Chloride 100 ML IV ×2 (01:59→14:15)
[2024-05-19 02:40] LABS: CDiff Gene PCR NEGATIVE (Negative)
[2024-05-19 02:54] LABS: Venous Blood Gas Refer to POC result
--- NOTE | 2024-05-19 04:27 | HO.SKINPHOTO ---
Location: Buttocks/coccyx, present on admission
--- NOTE | 2024-05-19 04:34 | PM.EVENT ---
Documented by User: Tessie López NP 05/19/24 04:35 Event Note Date of Service: 05/19/24 Event Note: One set of blood cultures reported positive at 16 hours for GNR. Patient presented with systemic inflammatory response but no severe sepsis or septic shock. Left lung perihilar consolidation identified on chest x-ray. Blood cultures previously positive for Stenotrophomonas maltophilia. Will add Bactrim and repeat blood cultures and lactate. Time Spent With Patient Time: Total time managing care of this patient today ____ minutes. Documented by User: Marysol Osorio MD 05/19/24 07:33 Event Note Date of Service: 05/19/24
[2024-05-19] MEDS: propofoL 1,000 MG/100 ML VIAL 14.76 MG IVCONT (05:00)
[2024-05-19 05:41] LABS: Glucose, Whole Blood 88 mg/dL (60-115)
[2024-05-19 05:49] LABS: VBG Base Excess -7.8 mmol/L; VBG HCO3 16 mmol/L (22-26); VBG pCO2 28 mmHg; VBG pH 7.36 (7.32-7.43); VBG pO2 45 mmHg
[2024-05-19] MEDS: Dextrose 5 % 1,000 ML 50 ML IVCONT ×2 (06:06→23:42)
[2024-05-19] MEDS: Pantoprazole Sodium 40 MG/10 ML VIAL IVPUSH (06:06)
[2024-05-19 06:11] LABS: Hematocrit 27.6 % (37.0-47.0); Hemoglobin 8.7 g/dl (12.0-16.0); Mean Corpuscular HGB Conc 31.5 g/dl (31.0-35.0); Mean Corpuscular Hemoglobin 28.8 pg (27.0-33.0); Mean Corpuscular Volume 91.4 fL (80.0-98.0); Mean Platelet Volume 12.7 fL (9.4-12.3); Red Blood Count 3.02 X10*6/uL (4.20-5.50); Red Cell Distribution Width 17.5 % (11.0-16.0)
--- NOTE | 2024-05-19 06:15 | PM.EVENT ---
Documented by User: Tessie López NP 05/19/24 06:16 Event Note Date of Service: 05/19/24 Event Note: Second set of blood cultures positive at 18 hours for GNR. Blood cultures and lactate have been drawn. Pt started on Bactrim pending ID and sensitivities.? Time Spent With Patient Time: Total time managing care of this patient today ____ minutes. Documented by User: Marysol Osorio MD 05/19/24 07:33 Event Note Date of Service: 05/19/24
[2024-05-19 06:24] LABS: Creatinine Clr Calc Pharmacy 15.8; Estimated Glomerular Filt Rate 20
[2024-05-19 06:24] LABS: Anion Gap 11 (12-20); Blood Urea Nitrogen 44 mg/dL (9-16); Calcium 8.8 mg/dL (8.4-10.2); Carbon Dioxide 16 mmol/L (22-29); Chloride 120 mmol/L (96-108); Creatinine Clr Calc Pharmacy 15.7; Estimated Glomerular Filt Rate 19; Glucose Random 92 mg/dL (60-115); Magnesium 1.6 mg/dL (1.6-2.6); Phosphorus 2.2 mg/dL (2.7-4.5); Sodium 143 mmol/L (135-145)
[2024-05-19 06:25] LABS: Venous Blood Gas Refer to POC result
[2024-05-19] MEDS: Sodium Bicarbonate 8.4% 50 MEQ/50 ML SYRINGE IVPUSH (06:27)
[2024-05-19 06:31] LABS: Lactic Acid 3.4 mmol/L (0.5-2.0)
[2024-05-19 06:34] LABS: Platelet Count 63 X10*3/uL (160-400); WBC ABN SCTR FOR CBC 1
[2024-05-19 06:35] LABS: White Blood Count 1.8 X10*3/uL (4.8-10.8)
[2024-05-19] MEDS: Albumin Human 25 % 100 ML 133.33 ML IV ×2 (06:42→07:26)
[2024-05-19 06:45] LABS: Band Neutrophils Percent 12 % (3-5); Lymphocytes Absolute Manual 0.7 X10*3/uL (1.2-4.9); Lymphocytes Percent Manual 38 % (20-40); Metamyelocytes Percent 2 %; Monocytes Absolute Manual 0.3 X10*3/uL (0.1-1.2); Monocytes Percent Manual 14 % (2-11); Neutrophils Absolute Manual 0.8 X10*3/uL (2.0-8.3); Neutrophils Percent Manual 34 % (45-73)
[2024-05-19 06:46] LABS: RBC Morphology NOTED
[2024-05-19 06:49] LABS: Burr Cells 1+ (0-2) /OIF; Large Platelet PRESENT; Microcytosis 1+ (5-14) /OIF; Ovalocytes 1+ (5-14) /OIF; Platelet Estimate DECREASED (NORMAL); Platelet Morphology Comment NOTED
[2024-05-19 07:10] LABS: Venous Blood Gas Refer to POC result
[2024-05-19 07:13] LABS: ABG Refer to POC result
--- NOTE | 2024-05-19 07:13 | PC.NURSE ---
Patient was admitted to the ICU from the ED just before the 20:00 hour. Assumed care of this pt at this time. Pt seen with FTT, AMS and pna. Pt arrived on HFNC 45L/75%, adjusted by RT per DEVELOPMENTAL PSYCHOLOGIST verbal order. Patient tachypneic upper 20?s to low 30?s. DEVELOPMENTAL PSYCHOLOGIST aware. Intermittent desats to 87% noted and HFNC adjusted by RT per DEVELOPMENTAL PSYCHOLOGIST order. DEVELOPMENTAL PSYCHOLOGIST verbal order for spo2 goal 88-92% for pt hx of copd. VBG obtained per DEVELOPMENTAL PSYCHOLOGIST. 1x sodium bicarbonate ordered and given with orders for repeat VBC at midnight. POC obtained in the evening was 69. DEVELOPMENTAL PSYCHOLOGIST Tessie López notified with verbal orders to given prn D50. Given with +effect, repeat POC 190. Q6HR POCs ordered while pt NPO.? 22:45: Pt unable to tolerate repositioning onto left side laying for skin integrity, as evidenced by desats as low as 83% requiring increase in Fio2 to 100% on same 55L. Pt was repositioned with left lung up and pt spo2 slowly improved to 88-90%. RT aware and DEVELOPMENTAL PSYCHOLOGIST Rene was made aware.? 0:00 hour:?Pt BP increasingly soft. Pt started on levophed per DEVELOPMENTAL PSYCHOLOGIST order. Pt?s respiratory status worsened. Pt was sedated, intubated at 0:07 by DEVELOPMENTAL PSYCHOLOGIST with RT assistance: #6.0 ETT, 22cm at the lip with +yellow color change. Vented ACVC settings as placed by RT. See vent assessment for full details. OG tube also placed and clamped per DEVELOPMENTAL PSYCHOLOGIST. Post-placement CXR ordered and obtained per protocol.? VBG results reviewed with RT and DEVELOPMENTAL PSYCHOLOGIST. DEVELOPMENTAL PSYCHOLOGIST verbal orders to reassess next VBG with morning labs as pt is newly intubated. ? POC 71. DEVELOPMENTAL PSYCHOLOGIST verbal orders to give another amp of D50. Repeat POC improved to 168.?? 01:00 hour: Previously ordered sputum sample obtained via in-line suctioning. Nasal MRSA previously ordered was obtained and sent to lab. Indwelling urinary catheter placed per DEVELOPMENTAL PSYCHOLOGIST order with 60ml immediate output. CYU with sediment. Previously ordered urine labs sent. Stool sample sent to r/o cdi due to patient recent hx per ED report.??? 04:00 hour: Preliminary BCx set 1 of 2 back +GNR. DEVELOPMENTAL PSYCHOLOGIST made aware. Of note, the patient has already on zosyn and vancomycin. DEVELOPMENTAL PSYCHOLOGIST orders for repeat BCx2 and lactic given increasing levophed requirements. Phlebotomy notified and requested to bedside as BCx unable to be drawn off of right chest implanted port.?? 05:00 hour: POC remains low, 88 at this hour. UOP also lowering. DEVELOPMENTAL PSYCHOLOGIST made aware with orders to initiate D5W at 50ml/hr. 06:00 hour: BCx set 2 of 2 back, also +GNR preliminarily. DEVELOPMENTAL PSYCHOLOGIST notified. Most remaining labs are still in process as of 06:30. Another amp of sodium bicarb was ordered and given per DEVELOPMENTAL PSYCHOLOGIST orders after reviewing morning VBG results.?? Lactic back critical at 3.4. DEVELOPMENTAL PSYCHOLOGIST notified. Albumin ordered and first bag initiated.? ? Please see admission and shift assessments, tasks, and MAR for full details.? Handoff report given to oncoming RN.?
[2024-05-19 07:26] LABS: Glucose, Whole Blood 85 mg/dL (60-115)
--- NOTE | 2024-05-19 07:36 | P.PNCC_ITS ---
Subjective Subjective Date of Service: 05/19/24 Interval History: admitted 05/18 PM d/t pneumonia c/b acute on chronic respiratory failure, intubated shortly after ICU admission Critical Care Time (minutes): 60 Physical Exam 2 Vital Signs: Vital Signs: Last Vital Signs Temp 99.9 F 05/19/24 07:00 Pulse 87 05/19/24 07:00 Resp 31 H 05/19/24 07:00 BP 133/52 L 05/19/24 07:00 Pulse Ox 98 05/19/24 07:00 O2 Del Method Mechanical Ventil ation 05/19/24 07:00 O2 Flow Rate 50 05/18/24 23:00 FiO2 70 05/19/24 07:00 Oxygen Flow Rate 2 05/18/24 11:16 BMI result Body Mass Index 26.2 Const: Other: chronically-ill appearing, cachectic; intubated, sedated General: no acute distress HEENT: Head: Yes normal to inspection, Yes normocephalic and Yes atraumatic Eyes: General: appearance normal, both eyes and all related structures Neck: Neck: Yes normal visual inspection, Yes full ROM, Yes no meningeal signs, Yes trachea midline and Yes supple Chest: Chest palpation & inspection: normal inspection of the chest Resp: Other: no appreciable overt rales, rhonchi, wheezing Effort & Inspection: normal respiratory effort Cardio: Rate: regular rate Rhythm: regular rhythm GI: Inspection: Yes normal to inspection, No Abdominal wall edema and No distended Palpation (GI): Soft to palpation, not firm, nontender, no guarding and not rigid Skin: General skin exam: no rashes or lesions noted Neuro: General: tone normal and no meningeal signs Extrem: General: Yes normal to inspection, Yes full ROM, Yes capillary refill normal and Yes no clubbing, cyanosis or edema Psych: Other: unable to assess Objective Data Labs 05/19/24 05:54 05/19/24 05:54 Labs: Laboratory Results - last 24 hr 05/18/24 05/18/24 05/18/24 12:07 12:29 14:13 WBC 2.8 L RBC 2.96 L Hgb 8.4 L Hct 27.0 L MCV 91.2 MCH 28.4 MCHC 31.1 RDW 17.1 H Plt Count 45 L D MPV 11.6 Immature Gran % (Auto) Cancelled Neut % (Auto) Cancelled Lymph % (Auto) Cancelled [place] % (Auto) Cancelled Eos % (Auto) Cancelled Baso % (Auto) Cancelled Lymph # (Auto) Cancelled [place] # (Auto) Cancelled Eos # (Auto) Cancelled Baso # (Auto) Cancelled Abs Immat Gran (auto) Cancelled Absolute Neuts (auto) Cancelled Absolute Nucleated RBC 0.000 Nucleated RBC % (auto) 0.0 Neutrophils % (Manual) 56 Band Neutrophils % 16 H Lymphocytes % (Manual) 17 L Atypical Lymphs % (Man) 2 Monocytes % (Manual) 7 Metamyelocytes % 2 Abs Neuts (Manual) 2.0 Lymphocytes # (Manual) 0.5 L Atyp Lymphs # (Manual) 0.1 Monocytes # (Manual) 0.2 Metamyelocytes # 0.1 Toxic Vacuolation PRESENT Dohle Bodies PRESENT Platelet Estimate DECREASED Large Platelets Plt Morphology Comment NORM RBC Morphology NOTED Microcytosis 1+ (5-14) Macrocytosis 1+ (5-14) Spherocytes 1+ (0-2) Ovalocytes Tavo Cells PT 20.0 H D INR 1.7 H O2 Saturation ABG pH at Pt Temp ABG pCO2 at Pt Temp ABG pO2 at Pt Temp ABG HCO3 ABG Base Excess (Actual) VBG pH 7.37 VBG pCO2 20 VBG pO2 194 VBG HCO3 12 L VBG O2 Saturation TNP VBG Base Excess -11.9 Sodium 142 Potassium 4.8 D Chloride 119 H Carbon Dioxide 16 L Anion Gap 12 BUN 42 H Creatinine 2.29 H Estim Creat Clear Calc 16.5 Estimated GFR 21 POC Glucose Random Glucose 79 Lactic Acid 1.7 Calcium 9.1 Phosphorus Magnesium 1.8 Total Bilirubin 0.9 Direct Bilirubin 0.5 AST 59 H ALT 18 Alkaline Phosphatase 103 Troponin I High Sens 74.7 H* D 63.8 H* C-Reactive Protein 22.71 H B-Natriuretic Peptide 710 H Total Protein 5.3 L Albumin 2.3 L Lipase < 4 L Procalcitonin 15.12 C. difficile Tox B Gene Influenza Type A (PCR) NEGATIVE Influenza Type B (PCR) NEGATIVE RSV RNA Qual (PCR) NEGATIVE SARS-CoV-2 RNA (RT-PCR) NEGATIVE 05/18/24 05/18/24 05/18/24 18:41 19:46 20:10 WBC RBC Hgb Hct MCV MCH MCHC RDW Plt Count MPV Immature Gran % (Auto) Neut % (Auto) Lymph % (Auto) [place] % (Auto) Eos % (Auto) Baso % (Auto) Lymph # (Auto) [place] # (Auto) Eos # (Auto) Baso # (Auto) Abs Immat Gran (auto) Absolute Neuts (auto) Absolute Nucleated RBC Nucleated RBC % (auto) Neutrophils % (Manual) Band Neutrophils % Lymphocytes % (Manual) Atypical Lymphs % (Man) Monocytes % (Manual) Metamyelocytes % Abs Neuts (Manual) Lymphocytes # (Manual) Atyp Lymphs # (Manual) Monocytes # (Manual) Metamyelocytes # Toxic Vacuolation Dohle Bodies Platelet Estimate Large Platelets Plt Morphology Comment RBC Morphology Microcytosis Macrocytosis Spherocytes Ovalocytes [place] Cells PT INR O2 Saturation TNP ABG pH at Pt Temp 7.27 L ABG pCO2 at Pt Temp 38 ABG pO2 at Pt Temp 136 H ABG HCO3 18 L ABG Base Excess (Actual) -7.7 VBG pH 7.34 VBG pCO2 30 VBG pO2 182 VBG HCO3 17 L VBG O2 Saturation TNP VBG Base Excess -7.5 Sodium Potassium Chloride Carbon Dioxide Anion Gap BUN Creatinine Estim Creat Clear Calc Estimated GFR POC Glucose 69 Random Glucose Lactic Acid Calcium Phosphorus Magnesium Total Bilirubin Direct Bilirubin AST ALT Alkaline Phosphatase Troponin I High Sens C-Reactive Protein B-Natriuretic Peptide Total Protein Albumin Lipase Procalcitonin C. difficile Tox B Gene Influenza Type A (PCR) Influenza Type B (PCR) RSV RNA Qual (PCR) SARS-CoV-2 RNA (RT-PCR) 05/18/24 05/18/24 05/19/24 20:35 20:50 00:19 WBC RBC Hgb Hct MCV MCH MCHC RDW Plt Count MPV Immature Gran % (Auto) Neut % (Auto) Lymph % (Auto) [place] % (Auto) Eos % (Auto) Baso % (Auto) Lymph # (Auto) [place] # (Auto) Eos # (Auto) Baso # (Auto) Abs Immat Gran (auto) Absolute Neuts (auto) Absolute Nucleated RBC Nucleated RBC % (auto) Neutrophils % (Manual) Band Neutrophils % Lymphocytes % (Manual) Atypical Lymphs % (Man) Monocytes % (Manual) Metamyelocytes % Abs Neuts (Manual) Lymphocytes # (Manual) Atyp Lymphs # (Manual) Monocytes # (Manual) Metamyelocytes # Toxic Vacuolation Dohle Bodies Platelet Estimate Large Platelets Plt Morphology Comment RBC Morphology Microcytosis Macrocytosis Spherocytes Ovalocytes [place] Cells PT INR O2 Saturation ABG pH at Pt Temp ABG pCO2 at Pt Temp ABG pO2 at Pt Temp ABG HCO3 ABG Base Excess (Actual) VBG pH 7.27 L VBG pCO2 38 VBG pO2 41 VBG HCO3 18 L VBG O2 Saturation TNP VBG Base Excess -7.9 Sodium Potassium Chloride Carbon Dioxide Anion Gap BUN Creatinine Estim Creat Clear Calc Estimated GFR POC Glucose 190 H 71 Random Glucose Lactic Acid Calcium Phosphorus Magnesium Total Bilirubin Direct Bilirubin AST ALT Alkaline Phosphatase Troponin I High Sens C-Reactive Protein B-Natriuretic Peptide Total Protein Albumin Lipase Procalcitonin C. difficile Tox B Gene Influenza Type A (PCR) Influenza Type B (PCR) RSV RNA Qual (PCR) SARS-CoV-2 RNA (RT-PCR) 05/19/24 05/19/24 05/19/24 00:20 00:51 01:10 WBC RBC Hgb Hct MCV MCH MCHC RDW Plt Count MPV Immature Gran % (Auto) Neut % (Auto) Lymph % (Auto) [place] % (Auto) Eos % (Auto) Baso % (Auto) Lymph # (Auto) [place] # (Auto) Eos # (Auto) Baso # (Auto) Abs Immat Gran (auto) Absolute Neuts (auto) Absolute Nucleated RBC Nucleated RBC % (auto) Neutrophils % (Manual) Band Neutrophils % Lymphocytes % (Manual) Atypical Lymphs % (Man) Monocytes % (Manual) Metamyelocytes % Abs Neuts (Manual) Lymphocytes # (Manual) Atyp Lymphs # (Manual) Monocytes # (Manual) Metamyelocytes # Toxic Vacuolation Dohle Bodies Platelet Estimate Large Platelets Plt Morphology Comment RBC Morphology Microcytosis Macrocytosis Spherocytes Ovalocytes Tavo Cells PT INR O2 Saturation ABG pH at Pt Temp ABG pCO2 at Pt Temp ABG pO2 at Pt Temp ABG HCO3 ABG Base Excess (Actual) VBG pH 7.27 L VBG pCO2 44 VBG pO2 51 VBG HCO3 20 L VBG O2 Saturation 83.0 VBG Base Excess -5.5 Sodium Potassium Chloride Carbon Dioxide Anion Gap BUN Creatinine Estim Creat Clear Calc Estimated GFR POC Glucose 168 H Random Glucose Lactic Acid Calcium Phosphorus Magnesium Total Bilirubin Direct Bilirubin AST ALT Alkaline Phosphatase Troponin I High Sens C-Reactive Protein B-Natriuretic Peptide Total Protein Albumin Lipase Procalcitonin C. difficile Tox B Gene NEGATIVE Influenza Type A (PCR) Influenza Type B (PCR) RSV RNA Qual (PCR) SARS-CoV-2 RNA (RT-PCR) 05/19/24 05/19/24 05/19/24 05:25 05:46 05:53 WBC RBC Hgb Hct MCV MCH MCHC RDW Plt Count MPV Immature Gran % (Auto) Neut % (Auto) Lymph % (Auto) [place] % (Auto) Eos % (Auto) Baso % (Auto) Lymph # (Auto) [place] # (Auto) Eos # (Auto) Baso # (Auto) Abs Immat Gran (auto) Absolute Neuts (auto) Absolute Nucleated RBC Nucleated RBC % (auto) Neutrophils % (Manual) Band Neutrophils % Lymphocytes % (Manual) Atypical Lymphs % (Man) Monocytes % (Manual) Metamyelocytes % Abs Neuts (Manual) Lymphocytes # (Manual) Atyp Lymphs # (Manual) Monocytes # (Manual) Metamyelocytes # Toxic Vacuolation Dohle Bodies Platelet Estimate Large Platelets Plt Morphology Comment RBC Morphology Microcytosis Macrocytosis Spherocytes Ovalocytes [place] Cells PT INR O2 Saturation ABG pH at Pt Temp ABG pCO2 at Pt Temp ABG pO2 at Pt Temp ABG HCO3 ABG Base Excess (Actual) VBG pH 7.36 VBG pCO2 28 VBG pO2 45 VBG HCO3 16 L VBG O2 Saturation 82.0 VBG Base Excess -7.8 Sodium Potassium Chloride Carbon Dioxide Anion Gap BUN Creatinine 2.41 H Estim Creat Clear Calc 15.8 Estimated GFR 20 POC Glucose 88 Random Glucose Lactic Acid 3.4 H* Calcium Phosphorus Magnesium Total Bilirubin Direct Bilirubin AST ALT Alkaline Phosphatase Troponin I High Sens C-Reactive Protein B-Natriuretic Peptide Total Protein Albumin Lipase Procalcitonin C. difficile Tox B Gene Influenza Type A (PCR) Influenza Type B (PCR) RSV RNA Qual (PCR) SARS-CoV-2 RNA (RT-PCR) 05/19/24 05/19/24 05:54 07:20 WBC 1.8 L RBC 3.02 L Hgb 8.7 L Hct 27.6 L MCV 91.4 MCH 28.8 MCHC 31.5 RDW 17.5 H Plt Count 63 L D MPV 12.7 H Immature Gran % (Auto) Cancelled Neut % (Auto) Cancelled Lymph % (Auto) Cancelled [place] % (Auto) Cancelled Eos % (Auto) Cancelled Baso % (Auto) Cancelled Lymph # (Auto) Cancelled [place] # (Auto) Cancelled Eos # (Auto) Cancelled Baso # (Auto) Cancelled Abs Immat Gran (auto) Cancelled Absolute Neuts (auto) Cancelled Absolute Nucleated RBC 0.000 Nucleated RBC % (auto) 0.0 Neutrophils % (Manual) 34 L Band Neutrophils % 12 H Lymphocytes % (Manual) 38 Atypical Lymphs % (Man) Monocytes % (Manual) 14 H Metamyelocytes % 2 Abs Neuts (Manual) 0.8 L Lymphocytes # (Manual) 0.7 L Atyp Lymphs # (Manual) Monocytes # (Manual) 0.3 Metamyelocytes # Toxic Vacuolation Dohle Bodies Platelet Estimate DECREASED Large Platelets PRESENT Plt Morphology Comment NOTED RBC Morphology NOTED Microcytosis 1+ (5-14) Macrocytosis Spherocytes Ovalocytes 1+ (5-14) [place] Cells 1+ (0-2) PT INR O2 Saturation ABG pH at Pt Temp ABG pCO2 at Pt Temp ABG pO2 at Pt Temp ABG HCO3 ABG Base Excess (Actual) VBG pH VBG pCO2 VBG pO2 VBG HCO3 VBG O2 Saturation VBG Base Excess Sodium 143 Potassium 4.0 Chloride 120 H Carbon Dioxide 16 L Anion Gap 11 L BUN 44 H Creatinine 2.42 H Estim Creat Clear Calc 15.7 Estimated GFR 19 POC Glucose 85 Random Glucose 92 Lactic Acid Calcium 8.8 Phosphorus 2.2 L Magnesium 1.6 Total Bilirubin Direct Bilirubin AST ALT Alkaline Phosphatase Troponin I High Sens C-Reactive Protein B-Natriuretic Peptide Total Protein Albumin 2.0 L Lipase Procalcitonin C. difficile Tox B Gene Influenza Type A (PCR) Influenza Type B (PCR) RSV RNA Qual (PCR) SARS-CoV-2 RNA (RT-PCR) Microbiology Microbiology Results: Microbiology 05/18/24 13:32 Blood - Venous Blood Culture - Preliminary Prelim: GNR Gram Stain only 05/18/24 12:07 Blood - Venous Blood Culture - Preliminary Prelim: GNR Gram Stain only Progress Note: A&P Assessment and plan (1) Acute and chronic respiratory failure: Status: Acute (2) Pneumonia: Status: Acute (3) Small cell carcinoma of lung: Status: Acute (4) COPD (chronic obstructive pulmonary disease): Status: Acute Plan Patient is a 73 Y F w/ hypertension, hyperlipidemia, chronic renal insufficiency, non-alcoholic cirrhosis, prior breast cancer, COPD, and active metastatic small-cell lung cancer followed by Dr. Jesus, c/b chronic hypoxic respiratory failure, presenting initially to emergency department on 05/18 w/ failure to thrive; work-up suggestive of pneumonia, initially admitted to medicine, though developed hypotension and hypoxia, prompting ICU admission N: intubated, sedated w/ propofol gtt CV: hypotension, c/f septic shock, norepinephrine gtt, wean as tolerated R: acute on chronic hypoxic respiratory failure d/t pneumonia, small-cell lung cancer, COPD, intubated 05/18, wean as tolerated GI: NPO : chronic renal insufficiency, to closely monitor renal indices, electrolytes H: pancytopenia; chemical DVT prophylaxis w/ heparin SQ, to hold PLT < 50 ID: pneumonia, empiric vanc/zosyn; to follow-up BCx 05/17 E: hypoglycemia, D5W gtt P: no acute issues Quality Stroke Does the patient have a stroke diagnosis?: No VTE Prior VTE?: No VTE Risk Level:: Medical - moderate - high VTE Device Contraindication: N/A - Device Ordered VTE Drug Contraindication: N/A - Med Ordered
[2024-05-19] MEDS: Chlorhexidine Gluc Oral Rinse 15 ML MOUTHWASH BUCCAL ×3 (07:53→20:11)
[2024-05-19 08:07] LABS: Reflex Lactate? Lactic Acid Added
[2024-05-19] MEDS: Potassium Phosphate/NS 15 MMOL/250 ML PLAST..BAG 62.5 MMOL IV (08:15)
[2024-05-19] MEDS: Albuterol/Iprat 2.5/0.5MG 3 ML AMPUL.NEB INHALE ×4 (08:29→20:33)
[2024-05-19] MEDS: Norepinephrine Bitartrate/D5W 8 MG/250 ML PLAST..BAG 24.22 MG IVCONT (08:47)
[2024-05-19 08:53] LABS: ~Lactic Acid-LAB USE ONLY 3.4 mmol/L (0.5-2.0)
[2024-05-19 10:23] LABS: Reflex Lactate? 2 Y
[2024-05-19] MEDS: Sulfameth/Trimet 800/160/20 ML 20 ML ORAL.SUSP PO ×2 (10:35→20:11)
[2024-05-19] MEDS: HYDROmorphone HCl 1 MG/ML SYRINGE IVPUSH ×2 (10:36→20:45)
--- NOTE | 2024-05-19 10:55 | PM.HEMONCCN ---
Subjective - Subjective Chief complaint: CONSULT FOR: SMALL CELL CARCINOMA OF THE LUNG. Patient: known to practice within the last 3 years Consult date: 05/19/24 Requesting Physician: Lorie Lepe. Primary Care Provider: Kranthi Macdonald MD Family Provider: Kranthi Macdonald MD Medical Summary: DIAGNOSIS: Small-cell carcinoma of the lung. Mental status changes. Tongue Binder Utilized?: No - [place]ijani Speaking HPI - Consult Narrative Reason for consult: Consult for: Small-cell carcinoma of the lung. Narrative: Anna Crawford is a 73 year old lady with a history of small-cell carcinoma of the lung. She has a history of small-cell lung cancer being treated with chemotherapy, chronic hypoxemic respiratory failure, and chronic anemia and HTN. She presented to the ED with mental confusion and lethargy. She is at a SNF. She has been eating very little and not taking the Vancomycin po, she has been on (dx 03/21 with c.diff - on taper no longer having diarrhea). She has been less responsive that usual, markedly different from baseline which is A&Ox4. No fevers reported or worsening hypoxia. She is unable to provider history. She was last given her chemo, Lurbinectin, on 05/07. On arrival blood pressure was soft at 93/51 which improved to 1 14/60 with IV fluids. Vitals otherwise stable. She remains on baseline oxygen, 2 L via nasal cannula. Database: She is Pancytopenic with WBC 2.8, H/H 8.4/27.0%, platelets 45. Bands 16%. Renal function consistent with baseline with creatinine 2.29. Electrolyte levels normal except for chloride 119, CO2 16. VBG with pH 7.37, pCO2 20, HCO3 12. PT 20.0, INR 1.7. Initial troponin 74.7, repeat 63.8. CRP 22.71. BNP 712. Negative for COVID-19, RSV, influenza. CXR shows left lung perihilar consolidation consistent with pneumonia. EKG shows NSR with previously noted septal infarct. In the ED, She received 1 L IV LR, IV Zosyn, IV vancomycin. Medical History:) COPD unspecified, CKD stage 4, Nonalcoholic cirrhosis, Hyperlipidemia. Breast cancer s/p partial mastectomy and radiation. Diabetes. Weakness. 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 Cerebral infarction, unspecified Unspecified viral hepatitis C without hepatic coma Personal history of nicotine dependence Unspecified asthma, uncomplicated Other irritable bowel syndrome Hyperlipidemia, unspecified Essential (primary) hypertension Malignant neoplasm of unspecified part of unspecified bronchus or lung Bacteremia Pancytopenia Chronic diarrhea CKD (chronic kidney disease) Breast cancer HTN (hypertension) HBP (high blood pressure) Surgical History:) H/O hernia repair H/O breast surgery History of total knee replacement Social History Household Members: None Housing: [facility] Do you presently have visiting nurse or other home services: Yes Alcohol intake: never Comment: medicated Patient Tobacco Use Status: Former Tobacco user. Review of Systems Review of Systems: Yes Unobtainable due to mental status Oncology Screenings - ECOG Performance Status ECOG Performance Status: 3 [facility] Medical History: Medical History (Last Updated 05/18/24 @ 16:15 by BRANDON Chang) Bacteremia Breast cancer Cerebral infarction, unspecified Chronic diarrhea CKD (chronic kidney disease) Diabetes Difficulty in walking, not elsewhere classified Essential (primary) hypertension HBP (high blood pressure) HTN (hypertension) Hyperlipidemia, unspecified Malignant neoplasm of unspecified part of unspecified bronchus or lung Muscle weakness (generalized) Need for assistance with personal care Other cerebral infarction due to occlusion or stenosis of small artery Other cirrhosis of liver Other irritable bowel syndrome Pancytopenia Personal history of malignant neoplasm of breast Personal history of nicotine dependence Unspecified asthma, uncomplicated Unspecified viral hepatitis C without hepatic coma Weakness Functional capacity: bed bound Patient : No Surgical History: Surgical History (Last Reviewed 05/18/24 @ 15:55 by BRANDON Chang) H/O breast surgery H/O hernia repair History of total knee replacement Social History: Social History (Last Reviewed 05/18/24 @ 15:55 by BRANDON Chang) Living Situation History: Household Members: Unknown / Unable to asses Housing: Assisted Living Facility Do you presently have visiting nurse or other home services: Yes Alcohol History Details: Last drink: Unknown Currently Displaying Signs/Symptoms of Alcohol Withdrawal: No Tobacco History: Patient Tobacco Use Status: Former Tobacco user Tobacco use type: Cigarette Cigarette Packs Per Day: 1 Years Smoked: 50 e-Cigarette/Vaping Use: Never Used Second Hand Smoke Exposure: No Substance Use History: Use of substances other than those prescribed or required for medical reasons: Unable to respond Substance Use Type: Marijuana Currently Displaying Signs/Symptoms of Drug Intoxication Withdrawal: No Healthcare Practices: [facility] Practices: unable to respond 2/2 AMS Advance Directives: Advance Directives: Yes Advance Directives on File: Yes Advance Directives Date on File: 10/25/23 Homicidal Assessment: Do you have a plan to hurt others: No Plan Nutrition Assessment: Recently lost weight without trying: Unsure Nutrition Risks: On aspiration precautions Nutrition Risks: Poor intake 0-25% >4 days Patient : No : No Occupation Assessmet: service: No Current occupational status: retired Current occupational status: disabled Home Medications and Allergies Current Medications: Current Medications Acetaminophen (Acetaminophen 325 Mg Tablet) 650 mg PO Q6H PRN PRN Reason: Pain, Mild 1-3,fever,headache Albuterol/Ipratropium (Albuterol/Iprat 2.5/0.5mg 3 Ml Ampul.Neb) 3 ml INHALE RQ4H WHILE AWAKE [facility] Last Admin: 05/19/24 08:29 Dose: 3 ml Chlorhexidine Gluconate (Chlorhexidine Gluc Oral Rinse 15 Ml Mouthwash) 15 ml BUCCAL TID [facility] Last Admin: 05/19/24 07:53 Dose: 15 ml Dextrose (Dextrose 50 % 25 Gm/50 Ml Syringe) 25 gm IVPUSH Q15M PRN; Protocol PRN Reason: per Hypoglycemia Standing Ord. Last Admin: 05/19/24 00:29 Dose: 25 gm Glucose (Glucose Gel 15 Gm Gel..Gram.) 15 gm PO Q15M PRN; Protocol PRN Reason: per Hypoglycemia Standing Ord. Heparin Sodium (Porcine) (Heparin Sodium,Porcine 5,000 Unit/Ml Vial) 5,000 unit SUBCUT Q8H [facility] Last Admin: 05/18/24 20:10 Dose: Not Given Hydromorphone HCl (Hydromorphone Hcl 1 Mg/Ml Syringe) 1 mg IVPUSH Q2H PRN; Protocol PRN Reason: Pain, Severe (Pain Scale 7-10) Last Admin: 05/19/24 10:36 Dose: 1 mg Piperacillin Sod/Tazobactam (Sod 4.5 gm/ Sodium Chloride) 100 mls @ 200 mls/hr IV Q12H [facility] Last Infusion: 05/19/24 02:29 Dose: Infused Vancomycin HCl 500 mg/ Sodium (Chloride) 110 mls @ 110 mls/hr IV Q24H [facility] Propofol (Diprivan) 1,000 mg in 100 mls @ 0 mls/hr IVCONT .Q0M [facility]; Protocol Last Titration: 05/19/24 10:22 Dose: 50 mcg/kg/min, 18.45 mls/hr Norepinephrine Bitartrate (Levophed) 8 mg in 250 mls @ 0 mls/hr IVCONT .Q0M [facility]; Protocol Last Titration: 05/19/24 10:26 Dose: 0.19 mcg/kg/min, 21.91 mls/hr Dextrose (D5w) 1,000 mls @ 50 mls/hr IVCONT .Q20H [facility] Last Admin: 05/19/24 06:06 Dose: 50 mls/hr Potassium Phosphate (Kphos) 15 mmol in 250 mls @ 62.5 mls/hr IV ONCE ONE Stop: 05/19/24 11:37 Last Admin: 05/19/24 08:15 Dose: 62.5 mls/hr Insulin Human Lispro (Insulin Lispro 100 Unit/Ml 3 Ml Vial) 0 unit SUBCUT Q6H [facility]; Protocol Last Admin: 05/19/24 05:34 Dose: Not Given Pantoprazole Sodium (Pantoprazole Sodium 40 Mg/10 Ml Vial) 40 mg IVPUSH DAILY@0630 [facility] Last Admin: 05/19/24 06:06 Dose: 40 mg Pharmacy Consult (Consult Rx Vancomycin Dosing) 1 each MISCELLANE DAILY PRN PRN Reason: Consult order Sodium Chloride (0.9 % Sodium Chloride Flush 3 Ml Syringe) 3 ml IVFLUSH QSHIFT [facility] Last Admin: 05/19/24 07:26 Dose: Not Given Trimethoprim/Sulfamethoxazole (Sulfameth/Trimet 800/160/20 Ml 20 Ml Oral.Susp) 20 ml PO BID [facility] Last Admin: 05/19/24 10:35 Dose: 20 ml Home Medications ?Medication ?Instructions ?Recorded ?Confirmed ?Type acetaminophen 325 mg tablet 650 mg PO Q6H PRN Pain/Fever 11/14/23 05/18/24 History bisacodyl 10 mg rectal suppository 10 mg MO DAILY PRN Constipation 11/14/23 05/18/24 History carvedilol 12.5 mg tablet 12.5 mg PO BID 11/14/23 05/18/24 History folic acid 1 mg tablet 1 mg PO DAILY 11/14/23 05/18/24 History hydralazine 100 mg tablet 100 mg PO BID 11/14/23 05/18/24 History hydromorphone 2 mg tablet 2 mg PO Q6H PRN Pain, Moderate 11/14/23 05/18/24 History hydromorphone 2 mg tablet 4 mg PO Q6H PRN Pain, Severe 11/14/23 05/18/24 History ipratropium 0.5 mg-albuterol 3 mg 3 ml inhalation Q4H PRN Shortness 11/14/23 05/18/24 History (2.5 mg base)/3 mL nebulization Of Breath soln magnesium hydroxide 400 mg/5 mL 30 ml PO DAILY PRN Constipation 11/14/23 05/18/24 History oral suspension (Milk of Magnesia) ondansetron HCl 8 mg tablet 8 mg PO Q8H PRN Nausea And Vomiting 11/14/23 05/18/24 History polyethylene glycol 3350 17 17 g PO DAILY 11/14/23 05/18/24 History gram/dose oral powder (Miralax) sennosides 8.6 mg tablet (senna) 17.2 mg PO BEDTIME 11/14/23 05/18/24 History sodium phosphates 19 gram-7 118 ml MO DAILY PRN Constipation 11/14/23 05/18/24 History gram/118 mL enema (Fleet Enema) thiamine HCl (vitamin B1) 100 mg 100 mg PO DAILY 11/14/23 05/18/24 History tablet trazodone 100 mg tablet 100 mg PO BEDTIME 11/14/23 05/18/24 History trazodone 50 mg tablet 50 mg PO BEDTIME 11/14/23 05/18/24 History acetaminophen 325 mg tablet 650 mg PO DAILY pain 02/24/24 05/18/24 History clonazepam 0.5 mg tablet 0.5 mg PO BEDTIME Muscle Spasm 02/24/24 05/18/24 History melatonin 10 mg tablet 10 mg PO BEDTIME Sleep 02/24/24 05/18/24 History fluticasone furoate 50 1 inh inhalation DAILY 05/18/24 05/18/24 History mcg-vilanterol 25 mcg/dose inhalation powder (Breo Ellipta) sertraline 25 mg tablet 75 mg PO DAILY 05/18/24 05/18/24 History vancomycin 125 mg capsule 125 mg PO Q48H 05/18/24 05/18/24 History Allergies Allergy/AdvReac Type Severity Reaction Status Date / Time carisoprodol [From Soma] Allergy Severe Hives Verified 05/18/24 11:41 codeine Allergy Severe Itching Verified 05/18/24 11:41 Physical Exam Vital signs: Vital Signs Temp 100.0 F 05/19/24 10:00 Pulse 100 05/19/24 10:26 Resp 35 H 05/19/24 10:22 BP 131/35 L 05/19/24 10:26 Pulse Ox 94 05/19/24 10:00 O2 Del Method Mechanical Ventilation 05/19/24 10:00 O2 Flow Rate 50 05/18/24 23:00 FiO2 50 05/19/24 10:00 Intake & Output 05/18/24 05/19/24 05/19/24 18:59 06:59 18:59 Intake Total 2600 / 2918.360 318.360 / 2918.360 396.000 / 396.000 Output Total 120 / 135 45 / 45 Balance 2600 / 2783.360 198.360 / 2783.360 351.000 / 351.000 Urine Output (Average ml/kg/hr) 0.17 0.06 Intake: Intake, Oral Amount 0 / 0 Intake, IV Amount 2600 / 2918.360 318.360 / 2918.360 396.000 / 396.000 Albumin Human 25 % 100 ml @ 133 197.775 / 197.775 .333 mls/hr IV Q1H [facility] Rx#: [id number] Lactated Ringers 1,000 ml @ 999 2000 / 2000 mls/hr IV .Q1H1M [facility] Rx#: [id number] Piperacillin Sodium/Tazobactam 100 / 200 100 / 200 4.5 gm In 0.9 % Sodium Chloride 100 ml @ 200 mls/hr IV Q12H [facility] Rx#:[id number] vancomycin HCL 1,500 mg In 0.9 500 / 500 % Sodium Chloride 500 ml @ 333. 333 mls/hr IV ONCE ONE Rx#: [id number] Norepinephrine Bitartrate/D5W 8 146.466 / 146.466 119.013 / 119.013 mg In 250 ml @ Per Protocol IVCONT .Q0M [facility] Rx#:[id number] propofoL 1,000 mg In 100 ml @ 71.894 / 71.894 79.212 / 79.212 Per Protocol IVCONT .Q0M [facility] Rx #:[id number] Output: Output, Stool Amount 0 / 0 Output, Urine/Stool Mix Amount 0 / 0 Output, Urine Amount (Catheter) 120 / 135 45 / 45 Female External 0 / 0 Urethral 120 / 135 45 / 45 Other: NPO Yes Number of Incontinent Voids 1 Number of Bowel Movements 0 Urine incont Urine Color Yellow Last Bowel Movement 05/19/24 Stool Incontinent Stool Amount Small Stool Color Brown Stool Consistency Loose Weight 58.3 kg 59.8 kg Weight in Grams 99353 Weight 59.8 kg Hem/Onc Consult Result - Labs CBC & Chem 7: 05/20/24 05:41 05/20/24 05:41 Labs: Short CBC 05/18/24 05/19/24 Range/Units 12:07 05:54 WBC 2.8 L 1.8 L (4.8-10.8) X10*3/uL Hgb 8.4 L 8.7 L (12.0-16.0) g/dl Hct 27.0 L 27.6 L (37.0-47.0) % Plt Count 45 L D 63 L D (160-400) X10*3/uL BMP 05/18/24 05/19/24 05/19/24 12:07 05:53 05:54 Sodium 142 143 Potassium 4.8 D 4.0 Chloride 119 H 120 H Carbon Dioxide 16 L 16 L BUN 42 H 44 H Creatinine 2.29 H 2.41 H 2.42 H Calcium 9.1 8.8 Liver Function 05/18/24 05/19/24 Range/Units 12:07 05:54 Total Bilirubin 0.9 (0.0-1.0) mg/dL Direct Bilirubin 0.5 (0.0-0.5) mg/dL AST 59 H (5-31) U/L ALT 18 (0-31) U/L Alkaline Phosphatase 103 (39-117) U/L Albumin 2.3 L 2.0 L (3.5-5.0) g/dL Assessment and Plan Patient Active problem list reviewed?: Yes (1) Small cell carcinoma of lung Status: Acute Assessment and plan: Patient is a 73 Y F w/ hypertension, hyperlipidemia, chronic renal insufficiency, non-alcoholic cirrhosis, prior breast cancer, COPD, and active metastatic small-cell lung cancer. c/b chronic hypoxic respiratory failure, presenting initially to emergency department on 05/18 w/ failure to thrive; work-up suggestive of pneumonia, initially admitted to medicine, though developed hypotension and hypoxia, prompting ICU admission She was diagnosed with small-cell carcinoma of the lung, extensive stage disease. Patient previously has had: 1. Breast cancer. 2. Squamous cell carcinoma of the lung. 3. HCC. On 09/18/23 she presented to [facility] ED with worsening shortness of breath. She also complained of severe left-sided chest pain. She had chronic diarrhea. Chest x-ray showed increased opacification of the left chest consistent with major consolidation of the left upper lobe with left pleural effusion. She had chest tube placed. She was placed on BiPAP given respiratory distress. CT scan revealed: No evidence of PE. New small right apical pneumothorax. Slightly improved aeration the left upper lobe with persistent masslike opacity and surrounding patchy and ground-glass opacities, consistent with known carcinoma. Narrowing of the left upper lobe bronchus and segmental airways likely due to encasement by the mask. Near resolution of the left pleural effusion status post left pleural drainage catheter. Increasing mediastinal and bilateral supraclavicular adenopathy concerning for progression of disease. Pleural fluid cytology was positive for Small-cell carcinoma. She underwent chemotherapy with Carbo and etoposide while inpatient in mid September, between 09/19 and 09/21. She was then referred here to [facility] for insurance reasons. I offered continuing her treatment here. She and her son were willing. She received cycle 2 with atezolizumab on 11/04. She ended up in the hospital on 11/13/24 with pancytopenia and neutropenic sepsis. l referred her for pulmonary evaluation for her advanced COPD. CT scan of the chest from 01/31/24, was read on 02/06 revealed: 1. No priors available for comparison. 2. Innumerable pulmonary nodules as described, measuring up to 7 mm in the right middle lobe, most consistent with metastatic disease. 3. Unilateral pulmonary edema left lung. There may be mild changes in the right lung. 4. Innumerable patchy groundglass opacities in both lungs, nonspecific. Suspect inflammatory and/or infectious etiologies, developing of areas of alveolar edema, or possibly drug reaction. Recommend correlation clinically. 5. Hepatic cirrhosis with enhancing and nonenhancing masses as described, likely related to metastatic disease. Additional findings in the spleen, and gastrohepatic ligament as discussed. Unfortunately her disease progressed in January. I shared the above results with her. I offered palliative care versus, further treatment. I talked about second-line therapy, choices include: 1. Topotecan days 1-5, Q 21 days. 2. Lurbinectin : 3.2/m2 mg IV over 60 minutes, Q 21 days. She preferred the latter, on account of the easier schedule. I shared details of the treatment, including potential side effects including hypersensitivity reaction, skin rash, nausea vomiting diarrhea, pancytopenia, risk of infection, need for antibiotics, and blood transfusion were all addressed with her. I gave her a handout on Lurbinectin. She received her 1st dose on 02/20/24. She was subsequently in house between 02/23 and 03/06/24. Her PICC line got infected and she required IV antibiotics. Her blood count was low: WBC 2.9, HGB 8, PLT 75, so l held her lurbinectedin. She received a unit of packed RBCs. She was given Dilaudid 2 mg for her neck pain. She received her 2nd cycle on 03/26. She tolerated it better. She had cycle 3 on 04/16/24. Cycle 4 was given on 05/07/2024. She presented yesterday with shortness of breath, and failure to thrive. Noted to be in chronic hypoxic respiratory failure. Work-up suggestive of pneumonia. On empiric vanc/zosyn; Will follow-up BCx 05/17 She was initially admitted to medicine, though developed hypotension and hypoxia, prompting ICU admission. She is presently intubated, sedated w/ propofol gtt. She was hypotensive,,in septic shock. Currently on norepinephrine gtt. In acute on chronic hypoxic respiratory failure d/t pneumonia. Chest x-ray from today revealed: Endotracheal tube is in satisfactory position about 3.5 cm above the bruna. NG tube is in the stomach. Right IJ port catheter tip is near the superior cavoatrial junction. Left lung consolidation appears mildly increased and most consistent with pneumonia. There is a possible small layering left pleural effusion. Cardiomediastinal silhouette is within normal limits. She has Pancytopenia, related to her immunotherapy. 05/20: CBC: WBC 1.8, HGB 6.4, HCT 20.4, PLT 30. PLAN: To give G-CSF to nudge the WBC up. Give PRBCs. Hgb is down to 6.4. Family considering to transition to comfort care. Thanks, CC: Kranthi Macdonald MD. - Time Spent With Patient Time Spent with Patient (in minutes): 30
[2024-05-19 11:13] LABS: ~Lactic Acid-LAB USE ONLY 2.9 mmol/L (0.5-2.0)
[2024-05-19 11:14] LABS: MRSA Nasal PCR NEGATIVE (Negative); SA Nasal PCR POSITIVE (Negative)
--- NOTE | 2024-05-19 11:31 | MHC.CLN ---
RE: CONSULT PT IS INTUBATED AND SEDATED PT IS CURRENTLY NPO IF TF NEEDED; RECOMMEND PROMOTE AT MAX GAOL RATE 50ML/HR TO PROVIDE 1200KCALS (1687KCALS WITH SEDATION; 35ML/KG), 75G PROTEIN (1.6G/KG), 1007ML FREE WATER FROM FORMULA MONITOR TOLERANCE AND LYTES SEE FULL CLINICAL NUTRITION ASSESSMENT
[2024-05-19 11:32] LABS: Glucose, Whole Blood 98 mg/dL (60-115)
[2024-05-19] MEDS: propofoL 1,000 MG/100 ML VIAL 18.45 MG IVCONT (11:39)
[2024-05-19 11:50] LABS: Cancel Lactic Acid Canceled
[2024-05-19] MEDS: Vasopressin 20 UNIT/100 ML INFUS..BTL 12 UNIT IVCONT ×2 (12:05→18:02)
[2024-05-19] MEDS: vancomycin HCL 500 MG in 0.9 % Sodium Chloride 100 ML 110 MG IV (14:16)
--- NOTE | 2024-05-19 15:42 | MHC.CM.PN ---
Pt intubated and not able to participate in CM assessment: Message left w/pt's son/HCP Ross: Pt is a resident of [facility] and will likely return for continuation of services. Referral sent: HCP and DENIZ on file. Will await call back from Ross or extubation with pt. CM to follow
[2024-05-19] MEDS: 0.9 % Sodium Chloride Flush 3 ML SYRINGE IVFLUSH (15:43)
--- NOTE | 2024-05-19 15:47 | HO.WOUND ---
Wound Consult: Initial 73yr old? female admitted to [facility] on 05/18/24 - See progress notes and H&P for detailed history.? Wound consult placed for Sacrum. Patient intubated and in the ICU. FERMIN mattress in use along with heel protector boots. Sacrum Etiology: ?Deep Tissue Injury ?Present on Admission Wound Bed: dark maroon purple nonblanchable tissue Drainage / Odor: None Edges: ? irregular Priti wound: red pink tissue ? No Induration, Fluctuance or Warmth noted Goals of Treatment: ? Foam dressing to aid in pressure redistribution Recommendations: 1. Turn and Reposition every 2 hours and as needed for patient comfort.? Use pillows or wedges to support off loading positions. 2. Off Load all bony prominences with use of pillows and heel boots if needed.? Apply Preventative foams where needed. ? 3. Monitor for incontinence and moisture control, use barrier creams when needed for prevention and treatment. 4. Provide adequate and supplemental nutrition.? 5. Continue low air loss mattress. 6. When applicable maintain blood glucose levels per Providers order. 7. Sacrum - Off Load Pressure with Q2 hr turns and use of pillows - Apply skin prep allow to dry. Apply sacral foam dressing to aid in off loading and protection from friction. Change every 5 days and PRN. Re-consult wound care Nurse for wound deterioration or wound changes.
[2024-05-19 17:42] LABS: Glucose, Whole Blood 110 mg/dL (60-115)
--- NOTE | 2024-05-19 17:48 | PC.NURSE ---
Pt. remains vented and sedated. Norepinephrine titrated per MAY. Vasopressin gtt started per MAY. SR/ST on tele, HR 90s-110s. Pt. tolerating ACVC settings- see vent assessment. Henderson in place, UO 0-5cc/hr- MD aware. Q2 oral care and repositioning performed, plan of care ongoing.
[2024-05-19] MEDS: Norepinephrine Bitartrate/D5W 8 MG/250 ML PLAST..BAG 17.3 MG IVCONT (18:02)
[2024-05-19] MEDS: propofoL 1,000 MG/100 ML VIAL 7.38 MG IVCONT (18:02)
[2024-05-20] VITALS (44 sets, daily range): BP systolic 83–143; BP diastolic 42–77; PULSE 82–120; RESP 22–35; TEMP 35–38.3; O2SAT 91–96; BMI 26.0
[2024-05-20 00:32] LABS: Glucose, Whole Blood 106 mg/dL (60-115)
[2024-05-20] MEDS: Vasopressin 20 UNIT/100 ML INFUS..BTL 12 UNIT IVCONT (01:10)
[2024-05-20 01:13] LABS: Venous Blood Gas Refer to POC result
[2024-05-20 01:17] LABS: VBG HCO3 15 mmol/L (22-26); VBG pCO2 34 mmHg; VBG pH 7.26 (7.32-7.43); VBG pO2 58 mmHg
[2024-05-20] MEDS: Piperacillin Sodium/Tazobactam 4.5 GM in 0.9 % Sodium Chloride 100 ML IV ×2 (01:30→14:08)
[2024-05-20] MEDS: Sodium Bicarbonate 8.4% 50 MEQ/50 ML SYRINGE IVPUSH (01:44)
[2024-05-20] MEDS: Sodium Bicarbonate 8.4% 150 MEQ in Dextrose 5 % 850 ML 100 MEQ IV ×3 (02:00→21:00)
[2024-05-20] MEDS: Acetaminophen 325 MG TABLET 650 MG PO (03:06)
[2024-05-20 05:50] LABS: VBG Base Excess -5.6 mmol/L; VBG HCO3 18 mmol/L (22-26); VBG pCO2 31 mmHg; VBG pH 7.38 (7.32-7.43); VBG pO2 55 mmHg
[2024-05-20 05:53] LABS: Venous Blood Gas Refer to POC result
[2024-05-20 05:56] LABS: Mean Corpuscular HGB Conc 31.4 g/dl (31.0-35.0)
[2024-05-20 05:58] LABS: Mean Corpuscular Hemoglobin 28.2 pg (27.0-33.0); Mean Corpuscular Volume 89.9 fL (80.0-98.0); Red Blood Count 2.27 X10*6/uL (4.20-5.50); Red Cell Distribution Width 17.7 % (11.0-16.0)
[2024-05-20 06:08] LABS: Platelet Count 30 X10*3/uL (160-400)
[2024-05-20 06:12] LABS: PLT ABN DIST 1; WBC ABN SCTR FOR CBC 1
[2024-05-20 06:15] LABS: Hemoglobin 6.4 g/dl (12.0-16.0); White Blood Count 1.8 X10*3/uL (4.8-10.8)
[2024-05-20 06:16] LABS: Hematocrit 20.4 % (37.0-47.0)
[2024-05-20 06:18] LABS: Anion Gap 16 (12-20); Blood Urea Nitrogen 47 mg/dL (9-16); Carbon Dioxide 17 mmol/L (22-29); Chloride 110 mmol/L (96-108); Creatinine Clr Calc Pharmacy 15.7; Estimated Glomerular Filt Rate 19; Glucose Random 138 mg/dL (60-115); Magnesium 1.5 mg/dL (1.6-2.6); Phosphorus 4.4 mg/dL (2.7-4.5); Potassium 4.4 mmol/L (3.3-5.1); Sodium 139 mmol/L (135-145)
[2024-05-20] MEDS: Pantoprazole Sodium 40 MG/10 ML VIAL IVPUSH (06:24)
[2024-05-20] MEDS: Calcium Chloride 1 GM/10 ML SYRINGE IVPUSH (06:45)
[2024-05-20] MEDS: Magnesium Sulfate/H2O 2 GM/50 ML PIGGYBACK IV (07:43)
[2024-05-20] MEDS: Albumin Human 25 % 50 ML 100 ML IV ×4 (07:43→10:29)
--- NOTE | 2024-05-20 07:52 | P.CDIM_ITS ---
PROVIDER RESPONSE TEXT: To clarify, the appropriate diagnosis supported by the clinical indicators: Sepsis and severe sepsis with septic shock is/was present on admission and is a clinical diagnosis ba sed on QUERY TEXT: PHYSICIAN'S DOCUMENTATION REQUEST Date of Query: 05/19/2024 10:20 AM EDT Patient Name: Anna Crawford Admit Date: 05/18/2024 Dear Marysol Osorio MD, A review of the medical record indicates additional documentation may be needed. Please review below and update the documentation accordingly. Documentation on progress note dated 05/18/24 included concern for septic shock. Event note 05/19/24 states patient presented with systemic inflammatory response but no severe sepsis or septic shock The patient's infectious clinical indicators include: WBC 2.8 pulse 90 respiratory rate 26 BP 72/49 Norepinephrine drip as needed Recognized standard criteria for this condition and other infectious definitions includes: Sepsis Systemic manifestations of infection, with 2 or more SIRS criteria which include: Fever > 100.4?F or hypothermia < 96.8?F Leukocytosis - WBC > 12,000 or leukopenia, WBC < 4,000, or > 10% bands Tachycardia- > 90 beats/minute Tachypnea- RR > 20 breaths/minute or PaCO2 < 32mmHg Source: Merck Manual 2013 Documentation should include the known or suspected organism, and the underlying infection, such as U TI or pneumonia Severe Sepsis Sepsis with associated acute organ dysfunction, such as renal or respiratory failure Documentation should indicate the association between the sepsis and the organ dysfunction Septic Shock Severe sepsis with associated with circulatory failure, evidenced by hypotension and hypoperfusion Based on the above information and the recognized standard for sepsis, could you please clarify if th is diagnoses is still accurate and reflective of the patient's condition to ensure quality of the medical record. Sepsis and severe sepsis with septic shock is/was present on admission and is a clinical diagnosis ba sed on After study, Sepsis and severe sepsis with septic shock has been ruled out SIRS Other (explain) Clinically unable to determine (explain) Thank you, Sadia An RN Use of terms such as suspected, likely, concern for, or probable (associated with a specific diagnosi s that is being evaluated, monitored, or treated as if it exists) are acceptable and can be coded in the inpatient se tting, when documented at the time of discharge. Please use your independent medical judgment in providing your response. THIS QUERY IS PART OF THE PERMANENT MEDICAL RECORD
--- NOTE | 2024-05-20 07:52 | P.PNCC_ITS ---
Subjective Subjective Date of Service: 05/20/24 Interval History: no significant overnight events; maintains guarded clinical status Critical Care Time (minutes): 60 Physical Exam 2 Vital Signs: Vital Signs: Last Vital Signs Temp 100.6 F H 05/20/24 06:00 Pulse 105 H 05/20/24 06:00 Resp 31 H 05/20/24 06:00 BP 98/55 L 05/20/24 06:00 Pulse Ox 95 05/20/24 06:00 O2 Del Method Mechanical Ventil ation 05/20/24 06:00 O2 Flow Rate 50 05/18/24 23:00 FiO2 50 05/20/24 04:57 Oxygen Flow Rate 2 05/18/24 11:16 BMI result Body Mass Index 26.0 Const: Other: intubated, not sedated; no appreciable spontaneous movements; no appreciable response to noxious stimulus HEENT: Head: Yes normal to inspection, Yes normocephalic and Yes atraumatic Eyes: General: appearance normal, both eyes and all related structures Neck: Neck: Yes normal visual inspection, Yes full ROM, Yes no meningeal signs, Yes trachea midline and Yes supple Chest: Chest palpation & inspection: normal inspection of the chest Resp: Other: no appreciable rales, rhonchi, wheezing Effort & Inspection: normal respiratory effort Cardio: Rate: tachycardic Rhythm: regular rhythm GI: Inspection: Yes normal to inspection, No Abdominal wall edema and No distended Palpation (GI): Soft to palpation, not firm, nontender, no guarding and not rigid Skin: General skin exam: no rashes or lesions noted Neuro: General: tone normal, No moves all extremities, no meningeal signs and no focal motor deficits Extrem: General: Yes normal to inspection, Yes full ROM, Yes capillary refill normal and Yes no clubbing, cyanosis or edema Psych: Other: unable to assess Objective Data Labs 05/20/24 05:41 05/20/24 05:41 Labs: Laboratory Results - last 24 hr 05/19/24 05/19/24 05/19/24 01:10 08:19 10:38 WBC RBC Hgb Hct MCV MCH MCHC RDW Plt Count MPV Immature Gran % (Auto) Neut % (Auto) Lymph % (Auto) [place] % (Auto) Eos % (Auto) Baso % (Auto) Lymph # (Auto) [place] # (Auto) Eos # (Auto) Baso # (Auto) Abs Immat Gran (auto) Absolute Neuts (auto) Absolute Nucleated RBC Nucleated RBC % (auto) VBG pH VBG pCO2 VBG pO2 VBG HCO3 VBG O2 Saturation VBG Base Excess Sodium Potassium Chloride Carbon Dioxide Anion Gap BUN Creatinine Estim Creat Clear Calc Estimated GFR POC Glucose Random Glucose Lactic Acid F/U @ 2Hr 3.4 H* Lactic Acid F/U @ 4Hr 2.9 H* Calcium Phosphorus Magnesium Albumin Nasal Screen MRSA (PCR) NEGATIVE Nasal S. aureus Screen POSITIVE A Nasal MRSA/S.aureus Interp SEE NOTE Blood Type Antibody Screen Crossmatch 05/19/24 05/19/24 05/20/24 11:28 17:39 00:27 WBC RBC Hgb Hct MCV MCH MCHC RDW Plt Count MPV Immature Gran % (Auto) Neut % (Auto) Lymph % (Auto) [place] % (Auto) Eos % (Auto) Baso % (Auto) Lymph # (Auto) [place] # (Auto) Eos # (Auto) Baso # (Auto) Abs Immat Gran (auto) Absolute Neuts (auto) Absolute Nucleated RBC Nucleated RBC % (auto) VBG pH VBG pCO2 VBG pO2 VBG HCO3 VBG O2 Saturation VBG Base Excess Sodium Potassium Chloride Carbon Dioxide Anion Gap BUN Creatinine Estim Creat Clear Calc Estimated GFR POC Glucose 98 110 106 Random Glucose Lactic Acid F/U @ 2Hr Lactic Acid F/U @ 4Hr Calcium Phosphorus Magnesium Albumin Nasal Screen MRSA (PCR) Nasal S. aureus Screen Nasal MRSA/S.aureus Interp Blood Type Antibody Screen Crossmatch 05/20/24 05/20/24 05/20/24 01:13 05:41 05:46 WBC 1.8 L RBC 2.27 L D Hgb 6.4 L* D Hct 20.4 L* D MCV 89.9 MCH 28.2 MCHC 31.4 RDW 17.7 H Plt Count 30 L D MPV Not Reportable Immature Gran % (Auto) Cancelled Neut % (Auto) Cancelled Lymph % (Auto) Cancelled [place] % (Auto) Cancelled Eos % (Auto) Cancelled Baso % (Auto) Cancelled Lymph # (Auto) Cancelled [place] # (Auto) Cancelled Eos # (Auto) Cancelled Baso # (Auto) Cancelled Abs Immat Gran (auto) Cancelled Absolute Neuts (auto) Cancelled Absolute Nucleated RBC 0.000 Nucleated RBC % (auto) 0.0 VBG pH 7.26 L 7.38 VBG pCO2 34 31 VBG pO2 58 55 VBG HCO3 15 L 18 L VBG O2 Saturation Not Reportable Not Reportable VBG Base Excess -10.0 -5.6 Sodium 139 Potassium 4.4 Chloride 110 H Carbon Dioxide 17 L Anion Gap 16 BUN 47 H Creatinine 2.42 H Estim Creat Clear Calc 15.7 Estimated GFR 19 POC Glucose Random Glucose 138 H Lactic Acid F/U @ 2Hr Lactic Acid F/U @ 4Hr Calcium 8.0 L D Phosphorus 4.4 Magnesium 1.5 L Albumin 2.0 L Nasal Screen MRSA (PCR) Nasal S. aureus Screen Nasal MRSA/S.aureus Interp Blood Type Antibody Screen Crossmatch 05/20/24 06:32 WBC RBC Hgb Hct MCV MCH MCHC RDW Plt Count MPV Immature Gran % (Auto) Neut % (Auto) Lymph % (Auto) [place] % (Auto) Eos % (Auto) Baso % (Auto) Lymph # (Auto) [place] # (Auto) Eos # (Auto) Baso # (Auto) Abs Immat Gran (auto) Absolute Neuts (auto) Absolute Nucleated RBC Nucleated RBC % (auto) VBG pH VBG pCO2 VBG pO2 VBG HCO3 VBG O2 Saturation VBG Base Excess Sodium Potassium Chloride Carbon Dioxide Anion Gap BUN Creatinine Estim Creat Clear Calc Estimated GFR POC Glucose Random Glucose Lactic Acid F/U @ 2Hr Lactic Acid F/U @ 4Hr Calcium Phosphorus Magnesium Albumin Nasal Screen MRSA (PCR) Nasal S. aureus Screen Nasal MRSA/S.aureus Interp Blood Type A Positive Antibody Screen NEGATIVE Crossmatch See Detail Microbiology Microbiology Results: Microbiology 05/18/24 13:32 Blood - Venous Blood Culture - Preliminary Prelim: GNR Gram Stain only 05/18/24 12:07 Blood - Venous Blood Culture - Preliminary Prelim: GNR Gram Stain only 05/19/24 01:10 Sputum - Suctioned Gram Stain - Final Progress Note: A&P Assessment and plan (1) Acute and chronic respiratory failure: Status: Acute (2) Pneumonia: Status: Acute (3) Small cell carcinoma of lung: Status: Acute (4) COPD (chronic obstructive pulmonary disease): Status: Acute Plan Patient is a 73 Y F w/ hypertension, hyperlipidemia, chronic renal insufficiency, non-alcoholic cirrhosis, prior breast cancer, COPD, and active metastatic small-cell lung cancer followed by Dr. Jesus, c/b chronic hypoxic respiratory failure, presenting initially to emergency department on 05/18 w/ failure to thrive; work-up suggestive of pneumonia, initially admitted to medicine, though developed hypotension and hypoxia, prompting ICU admission N: intubated, sedated w/ propofol gtt, wean as tolerated CV: hypotension, c/f septic shock, norepinephrine, vasopressin gtt, wean as tolerated R: acute on chronic hypoxic respiratory failure d/t pneumonia, small-cell lung cancer, COPD, intubated 05/18, wean as tolerated GI: NPO : chronic renal insufficiency, to closely monitor renal indices, electrolytes H: pancytopenia; holding chemical DVT prophylaxis w/ heparin SQ if PLT < 50 ID: pneumonia, empiric vanc/zosyn; to follow-up BCx 05/17 E: hypoglycemia, D5W gtt P: no acute issues Quality Stroke Does the patient have a stroke diagnosis?: No VTE Prior VTE?: No VTE Risk Level:: Medical - moderate - high VTE Device Contraindication: N/A - Device Ordered VTE Drug Contraindication: Treatment Not Indicated
[2024-05-20] MEDS: Chlorhexidine Gluc Oral Rinse 15 ML MOUTHWASH BUCCAL ×3 (07:56→20:01)
[2024-05-20] MEDS: 0.9 % Sodium Chloride Flush 3 ML SYRINGE IVFLUSH ×2 (07:57→16:28)
[2024-05-20] MEDS: Sulfameth/Trimet 800/160/20 ML 20 ML ORAL.SUSP PO ×2 (07:57→20:01)
[2024-05-20] MEDS: Albuterol/Iprat 2.5/0.5MG 3 ML AMPUL.NEB INHALE ×4 (08:00→20:46)
[2024-05-20 08:08] LABS: Atypical Lymphs Percent Manual 1 % (0-6); Band Neutrophils Percent 11 % (3-5); Lymphocytes Absolute Manual 0.5 X10*3/uL (1.2-4.9); Lymphocytes Percent Manual 30 % (20-40); Metamyelocytes Absolute 0.1 X10*3/uL; Metamyelocytes Percent 5 %; Monocytes Absolute Manual 0.2 X10*3/uL (0.1-1.2); Monocytes Percent Manual 12 % (2-11); Neutrophils Absolute Manual 0.9 X10*3/uL (2.0-8.3); Neutrophils Percent Manual 41 % (45-73)
[2024-05-20 08:09] LABS: Microcytosis 1+ (5-14) /OIF; Platelet Estimate DECREASED (NORMAL); RBC Morphology NOTED
[2024-05-20 08:10] LABS: Burr Cells 1+ (0-2) /OIF; Dohle Bodies PRESENT; Large Platelet PRESENT; Ovalocytes 1+ (5-14) /OIF; Platelet Morphology Comment NOTED; Spherocytes 1+ (0-2) /OIF; Toxic Vacuolation PRESENT
--- NOTE | 2024-05-20 10:07 | P.CDIM_ITS ---
PROVIDER RESPONSE TEXT: To clarify, the appropriate diagnosis supported by the clinical indicators: Pressure (decubitus) ulcer sacrum, deep tissue injury, present on admission QUERY TEXT: PHYSICIAN'S DOCUMENTATION REQUEST Date of Query: 05/20/2024 09:33 AM EDT Patient Name: Anna Crawford Admit Date: 05/18/2024 Dear Marysol Osorio MD, A review of the medical record indicates additional documentation may be needed. Please review below and update the documentation accordingly. Clinical Indicators: Per Wound note 05/19/24: Sacrum deep tissue injury, present on admission Foam dressing to aid in pressure redistribution Based on the above, could you please provide further information regarding the ulcer/wound: Pressure (decubitus) ulcer sacrum, deep tissue injury, present on admission Traumatic wound Please specify the location and laterality of the ulcer/wound Non-healing surgical wound Please specify the location and laterality of the ulcer/wound Other (explain) Clinically unable to determine (explain) Thank you, Sadia An RN Use of terms such as suspected, likely, concern for, or probable (associated with a specific diagnosi s that is being evaluated, monitored, or treated as if it exists) are acceptable and can be coded in the inpatient se tting, when documented at the time of discharge. Please use your independent medical judgment in providing your response. THIS QUERY IS PART OF THE PERMANENT MEDICAL RECORD
--- NOTE | 2024-05-20 10:45 | MHC.CLN ---
PT WITH INCREASED NUTRITION RISK R/T PRESSURE INJURY PT REMAINS INTUBATED AND SEDATED PT REMAINS NPO IF TF NEEDED; RECOMMEND PROMOTE AT MAX GOAL RATE 50ML/HR TO PROVIDE 1200KCALS (1687KCALS WITH SEDATION; 35ML/KG), 75G PROTEIN (1.6G/KG), 1007ML FREE WATER FROM FORMULA TF WILL PROMOTE WOUND HEALING MONITOR TOLERANCE AND LYTES FOLLOWING FOR DIET ADVANCEMENT SEE FULL CLINICAL NUTRITION ASSESSMENT
--- NOTE | 2024-05-20 11:01 | P.ACPN_ITS ---
Advanced Care Planning Note Advanced Care Planning Note Discussed with: family member(s) Time spent (in minutes): 15 Narrative: I met Ms. Crawford' son, Ross, at the bedside this AM; I offered clarifications and updates regarding Ms. Crawford emergency department and ICU course; we discussed her chronic and likely terminal illnesses, as well as her acute illness, including pneumonia complicated by septic shock; oRss expressed concerns regarding Ms. Lo overall prognosis and her likelihood of surviving her ICU stay; Ross expressed that Ms. Crawford would not want additional invasive interventions, such as tracheostomy; we discussed comfort-focused care; Ross e xpressed that he believes it may be appropriate to transition Ms. Crawford to comfort-focused care if her clinical status does not improve in the following days, and after family are able to visit; in the meantime, we will continue medical management and maintaining Ms. Crawford' DNR status Problems Discussed (1) Acute and chronic respiratory failure: (2) Pneumonia: (3) Small cell carcinoma of lung: (4) COPD (chronic obstructive pulmonary disease):
[2024-05-20] MEDS: Norepinephrine Bitartrate/D5W 8 MG/250 ML PLAST..BAG 8.07 MG IVCONT (11:20)
[2024-05-20] MEDS: propofoL 1,000 MG/100 ML VIAL 7.38 MG IVCONT ×2 (11:33→23:00)
[2024-05-20 11:36] LABS: Glucose, Whole Blood 142 mg/dL (60-115)
[2024-05-20] MEDS: Tbo-Filgrastim 300 MCG/0.5 ML SYRINGE SUBCUT (12:45)
[2024-05-20 13:05] LABS: Vancomycin Random 22.7 mcg/mL (15-20)
--- NOTE | 2024-05-20 13:14 | HO.WOUND ---
Wound Consult: Follow up 73yr old? [place] [facility] [place] See progress notes and H&P for detailed history.? Wound consult follow up for Sacrum. Patient intubated and in the ICU. FERMIN mattress in use, recommend heel protector boots. See below for photos depicting significant skin integrity skin changes with in the last 24hrs. The skin changes are not consistent with pressure I suspect they are related to the patients Thrombocytopenia. Current platelet lab value of 30. Of importance the patient remain on pressor support at this this time which can have a direct impact on skin integrity. All Preventative measures in place at this time. FERMIN, Wedges for repositions, Hovermatt repositioning system, barrier cream recommended and heel protector boots recommended. Sacrum 05/19/24 05/20/24 Back, Sacrum and Buttock Etiology: Purpura - Previously documented as ?Deep Tissue Injury ?Present on Admission Although the DTI is likely still present there is evidence to suggest this may have started due to platelet levels and has advanced due continued Thrombocytopenia and Pressor support. Wound Bed: dark maroon purple nonblanchable tissue Drainage / Odor: None Edges: ? irregular Priti wound: scattered irregular purpura noted throughout patients extremities, perineal area? No Induration, No Fluctuance noted Goals of Treatment: ? Barrier creams to protect fragile tissue Q2hr turns and repositions with continued use of wedges. Perineal area - Purpura Right Heel - Noted for intact nonblanchable redness in the smaller pink area - not completely consistent with pressure injury at this time - topical recommendations remain the same foam and off load with feel protector boots when available. Recommendations: 1. Turn and Reposition every 2 hours and as needed for patient comfort.? Use pillows or wedges to support off loading positions. 2. Off Load all bony prominences with use of pillows and heel boots if needed.? Apply Preventative foams where needed. ? 3. Monitor for incontinence and moisture control, use barrier creams when needed for prevention and treatment. 4. Provide adequate and supplemental nutrition.? 5. Continue low air loss mattress. 6. When applicable maintain blood glucose levels per Providers order. 7. Sacrum - Off Load Pressure with Q2 hr turns and use of pillows - Apply barrier cream twice daily and PRN. Discontinue foam use to sacral buttock area due to skin integrity. 8. Right Heel - Apply skin prep - elevate heels off of bed surface with heel boot protectors. Re-consult wound care Nurse for wound deterioration or wound changes.
--- NOTE | 2024-05-20 13:46 | HE.PHANOTE ---
VANCO DOSE ADJUSTMENT BASED ON SCR AND TROUGH OF 22.7 DOSE CHANGED TO 750 Q 48H. NEXT LEVEL 05/22 @ 1800
--- NOTE | 2024-05-20 14:04 | MHC.CM.PN ---
Pt intubated in ICU: many comorbid conditions impacting recovery including metastatic cancer. MD met with family to review goals of care: if pt does not make clinical progress in the next few days, they will transition pt to [employer] [facility] [employer]PERATOR. CM to follow
[2024-05-20 17:17] LABS: Glucose, Whole Blood 145 mg/dL (60-115)
--- NOTE | 2024-05-20 18:22 | ECG_ITS ---
Test Reason : elevated hr Blood Pressure : */* mmHG Vent. Rate : 151 BPM Atrial Rate : * BPM P-R Int : * ms QRS Dur : 120 ms QT Int : 346 ms P-R-T Axes : * -16 121 degrees QTcB Int : 548 ms Atrial fibrillation with rapid ventricular response with premature ventricular or aberrantly conducted complexes Minimal voltage criteria for LVH, may be normal variant ( Jaroso product ) Septal infarct ST & T wave abnormality, consider lateral ischemia Abnormal ECG When compared with ECG of 18-May-2024 12:25, Significant changes have occurred Referred By: Marysol Osorio Electronically Signed By: MATEO EWING
[2024-05-20 18:27] LABS: Hematocrit 22.5 % (37.0-47.0); Hemoglobin 7.5 g/dl (12.0-16.0); Mean Corpuscular HGB Conc 33.3 g/dl (31.0-35.0); Mean Corpuscular Hemoglobin 28.5 pg (27.0-33.0); Mean Corpuscular Volume 85.6 fL (80.0-98.0); Mean Platelet Volume 12.8 fL (9.4-12.3); Red Blood Count 2.63 X10*6/uL (4.20-5.50); Red Cell Distribution Width 16.5 % (11.0-16.0)
[2024-05-20 18:28] LABS: Platelet Count 23 X10*3/uL (160-400); WBC ABN SCTR FOR CBC 1
[2024-05-20 18:30] LABS: White Blood Count 1.8 X10*3/uL (4.8-10.8)
[2024-05-20] MEDS: Amiodarone/Dextrose 150 MG/100 ML PLAST..BAG 600 MG IV ×2 (18:45→19:02)
[2024-05-20] MEDS: Amiodarone HCL 900 MG in 0.9 % Sodium Chloride 500 ML 34.53 MG IVCONT (19:02)
--- NOTE | 2024-05-20 19:11 | PC.NURSE ---
Assumed care at 0700. Pt?s GCS = 3. Propofol off at approx 0730, vasopressin off as well, see MAR for details. MD and pt?s son had goals of care discussion resulting in plan to not escalate care while family visits before transition to comfort care. Propofol restarted for pt comfort per MD. Pt turned & repositioned q2hr. At approx 1810, pt?s HR kasia to 140-160 after repositioning. MD made aware. EKG showed afib, so amio given per MAY.
[2024-05-20 19:14] LABS: Anion Gap 18 (12-20); Blood Urea Nitrogen 46 mg/dL (9-16); Calcium 8.2 mg/dL (8.4-10.2); Carbon Dioxide 19 mmol/L (22-29); Chloride 100 mmol/L (96-108); Creatinine Clr Calc Pharmacy 16.2; Estimated Glomerular Filt Rate 20; Glucose Random 291 mg/dL (60-115); Magnesium 1.8 mg/dL (1.6-2.6); Phosphorus 2.3 mg/dL (2.7-4.5); Potassium 3.5 mmol/L (3.3-5.1); Sodium 133 mmol/L (135-145)
[2024-05-20 19:32] LABS: Band Neutrophils Percent 12 % (3-5); Lymphocytes Absolute Manual 0.6 X10*3/uL (1.2-4.9); Lymphocytes Percent Manual 32 % (20-40); Monocytes Absolute Manual 0.4 X10*3/uL (0.1-1.2); Monocytes Percent Manual 20 % (2-11); Neutrophils Absolute Manual 0.9 X10*3/uL (2.0-8.3); Neutrophils Percent Manual 36 % (45-73)
[2024-05-20 19:33] LABS: Burr Cells 2+ (3-5) /OIF; Dohle Bodies PRESENT; Ovalocytes 1+ (5-14) /OIF; Toxic Granulation PRESENT; Toxic Vacuolation PRESENT
[2024-05-20 19:34] LABS: Platelet Estimate NORMAL (NORMAL); Platelet Morphology Comment NORMAL
[2024-05-20] MEDS: vancomycin HCL 750 MG in 0.9 % Sodium Chloride 250 ML 265 MG IV (20:01)
[2024-05-20] MEDS: HYDROmorphone HCl 1 MG/ML SYRINGE IVPUSH (20:08)
[2024-05-20 20:12] LABS: RBC Morphology NOTED
[2024-05-20 23:37] LABS: Glucose, Whole Blood 143 mg/dL (60-115)
[2024-05-21] VITALS (52 sets, daily range): BP systolic 83–153; BP diastolic 47–83; PULSE 71–125; RESP 17–31; TEMP 34.6–37.7; O2SAT 89–95; BMI 28.2
[2024-05-21] MEDS: HYDROmorphone HCl 1 MG/ML SYRINGE IVPUSH ×2 (00:58→14:23)
[2024-05-21] MEDS: Piperacillin Sodium/Tazobactam 4.5 GM in 0.9 % Sodium Chloride 100 ML IV (01:01)
[2024-05-21 05:33] LABS: VBG Base Excess 4.8 mmol/L; VBG HCO3 27 mmol/L (22-26); VBG pCO2 31 mmHg; VBG pH 7.54 (7.32-7.43); VBG pO2 41 mmHg
[2024-05-21 05:49] LABS: Hemoglobin 8.1 g/dl (12.0-16.0)
[2024-05-21 05:51] LABS: Venous Blood Gas Refer to POC result
[2024-05-21 05:51] LABS: Mean Corpuscular HGB Conc 33.8 g/dl (31.0-35.0); Mean Corpuscular Hemoglobin 28.8 pg (27.0-33.0); Mean Corpuscular Volume 85.4 fL (80.0-98.0); Red Blood Count 2.81 X10*6/uL (4.20-5.50); Red Cell Distribution Width 16.9 % (11.0-16.0)
[2024-05-21 05:53] LABS: Platelet Count 24 X10*3/uL (160-400)
[2024-05-21 05:54] LABS: PLT ABN DIST 1; WBC ABN SCTR FOR CBC 1; White Blood Count 5.4 X10*3/uL (4.8-10.8)
[2024-05-21] MEDS: Pantoprazole Sodium 40 MG/10 ML VIAL IVPUSH (06:20)
[2024-05-21 06:23] LABS: Glucose, Whole Blood 138 mg/dL (60-115)
[2024-05-21] MEDS: Norepinephrine Bitartrate/D5W 8 MG/250 ML PLAST..BAG 19.6 MG IVCONT ×2 (06:29→19:48)
[2024-05-21 06:42] LABS: Anion Gap 15 (12-20); Blood Urea Nitrogen 57 mg/dL (9-16); Carbon Dioxide 25 mmol/L (22-29); Chloride 102 mmol/L (96-108); Creatinine Clr Calc Pharmacy 16.5; Estimated Glomerular Filt Rate 20; Glucose Random 150 mg/dL (60-115); Magnesium 1.8 mg/dL (1.6-2.6); Phosphorus 2.5 mg/dL (2.7-4.5); Potassium 3.1 mmol/L (3.3-5.1); Sodium 139 mmol/L (135-145)
--- NOTE | 2024-05-21 06:52 | HE.NUR.EV ---
Status Change: Approximately 2300- Afib with RVR, HR 120-130s. Approximately 0230- converted to NSR, HR 80s. Notifications: GUY López Further Monitoring and Treatment: Amiodarone gtt already infusing per MAR
[2024-05-21] MEDS: 0.9 % Sodium Chloride Flush 3 ML SYRINGE IVFLUSH ×4 (07:55→22:08)
[2024-05-21 08:03] LABS: Atypical Lymph Absolute Manual 0.3 x10*3/uL; Atypical Lymphs Percent Manual 5 % (0-6); Band Neutrophils Percent 11 % (3-5); Large Platelet PRESENT; Lymphocytes Absolute Manual 0.9 X10*3/uL (1.2-4.9); Lymphocytes Percent Manual 16 % (20-40); Metamyelocytes Absolute 0.1 X10*3/uL; Metamyelocytes Percent 1 %; Microcytosis 1+ (5-14) /OIF; Monocytes Absolute Manual 0.8 X10*3/uL (0.1-1.2); Monocytes Percent Manual 15 % (2-11); Neutrophils Absolute Manual 3.4 X10*3/uL (2.0-8.3); Neutrophils Percent Manual 52 % (45-73); Platelet Estimate DECREASED (NORMAL); Platelet Morphology Comment NOTED; RBC Morphology NOTED
[2024-05-21 08:04] LABS: Burr Cells 1+ (0-2) /OIF; Dohle Bodies PRESENT; Ovalocytes 1+ (5-14) /OIF; Spherocytes 1+ (0-2) /OIF; Toxic Granulation PRESENT; Toxic Vacuolation PRESENT
[2024-05-21] MEDS: Sulfameth/Trimet 800/160/20 ML 20 ML ORAL.SUSP PO ×2 (08:05→20:49)
--- NOTE | 2024-05-21 08:27 | PM.CCPN ---
Subjective Subjective Date of Service: 05/21/24 Interval History: no significant overnight events Critical Care Time (minutes): 60 Physical Exam Vital Signs: Vital Signs: Last Vital Signs Temp 99.5 F 05/21/24 08:00 Pulse 76 05/21/24 08:00 Resp 20 05/21/24 08:00 BP 132/65 05/21/24 08:00 Pulse Ox 90 L 05/21/24 08:00 O2 Del Method Mechanical Ventil ation 05/21/24 08:00 O2 Flow Rate 50 05/18/24 23:00 FiO2 50 05/21/24 08:00 Oxygen Flow Rate 2 05/18/24 11:16 BMI result Body Mass Index 28.2 Const: Other: intubated, minimally sedated; no response to verbal nor noxious stimulus; chronically-ill appearing General: No no acute distress HEENT: Head: Yes normal to inspection, Yes normocephalic and Yes atraumatic Eyes: General: appearance normal, both eyes and all related structures Neck: Neck: Yes normal visual inspection, Yes full ROM, Yes no meningeal signs, Yes trachea midline and Yes supple Chest: Chest palpation & inspection: normal inspection of the chest Resp: Other: no appreciable overt rales, rhonchi, wheezing Effort & Inspection: normal respiratory effort Cardio: Rate: regular rate Rhythm: regular rhythm GI: Inspection: Yes normal to inspection, No Abdominal wall edema and No distended Palpation (GI): Soft to palpation, not firm, nontender, no guarding and not rigid Skin: General skin exam: no rashes or lesions noted Neuro: General: tone normal and no meningeal signs Extrem: Other: appreciable 1+ pitting edema to bilateral shins General: Yes normal to inspection, Yes full ROM and Yes capillary refill normal Psych: Other: unable to assess Objective Data Labs 05/21/24 05:22 05/21/24 06:15 Labs: Laboratory Results - last 24 hr 05/20/24 05/20/24 05/20/24 06:32 11:32 12:15 WBC RBC Hgb Hct MCV MCH MCHC RDW Plt Count MPV Immature Gran % (Auto) Neut % (Auto) Lymph % (Auto) [place] % (Auto) Eos % (Auto) Baso % (Auto) Lymph # (Auto) [place] # (Auto) Eos # (Auto) Baso # (Auto) Abs Immat Gran (auto) Absolute Neuts (auto) Absolute Nucleated RBC Nucleated RBC % (auto) Neutrophils % (Manual) Band Neutrophils % Lymphocytes % (Manual) Atypical Lymphs % (Man) Monocytes % (Manual) Metamyelocytes % Abs Neuts (Manual) Lymphocytes # (Manual) Atyp Lymphs # (Manual) Monocytes # (Manual) Metamyelocytes # Toxic Granulation Toxic Vacuolation Dohle Bodies Platelet Estimate Large Platelets Plt Morphology Comment RBC Morphology Microcytosis Spherocytes Ovalocytes Turner Cells VBG pH VBG pCO2 VBG pO2 VBG HCO3 VBG O2 Saturation VBG Base Excess Sodium Potassium Chloride Carbon Dioxide Anion Gap BUN Creatinine Estim Creat Clear Calc Estimated GFR POC Glucose 142 H Random Glucose Calcium Phosphorus Magnesium Albumin Random Vancomycin 22.7 H Blood Type A Positive Antibody Screen NEGATIVE Crossmatch See Detail 05/20/24 05/20/24 05/20/24 17:14 18:13 18:46 WBC 1.8 L RBC 2.63 L Hgb 7.5 L Hct 22.5 L MCV 85.6 MCH 28.5 MCHC 33.3 RDW 16.5 H Plt Count 23 L MPV 12.8 H Immature Gran % (Auto) Cancelled Neut % (Auto) Cancelled Lymph % (Auto) Cancelled [place] % (Auto) Cancelled Eos % (Auto) Cancelled Baso % (Auto) Cancelled Lymph # (Auto) Cancelled [place] # (Auto) Cancelled Eos # (Auto) Cancelled Baso # (Auto) Cancelled Abs Immat Gran (auto) Cancelled Absolute Neuts (auto) Cancelled Absolute Nucleated RBC 0.000 Nucleated RBC % (auto) 0.0 Neutrophils % (Manual) 36 L Band Neutrophils % 12 H Lymphocytes % (Manual) 32 Atypical Lymphs % (Man) Monocytes % (Manual) 20 H Metamyelocytes % Abs Neuts (Manual) 0.9 L Lymphocytes # (Manual) 0.6 L Atyp Lymphs # (Manual) Monocytes # (Manual) 0.4 Metamyelocytes # Toxic Granulation PRESENT Toxic Vacuolation PRESENT Dohle Bodies PRESENT Platelet Estimate NORMAL Large Platelets Plt Morphology Comment NORMAL RBC Morphology NOTED Microcytosis Spherocytes Ovalocytes 1+ (5-14) Turner Cells 2+ (3-5) VBG pH VBG pCO2 VBG pO2 VBG HCO3 VBG O2 Saturation VBG Base Excess Sodium 133 L Potassium 3.5 D Chloride 100 Carbon Dioxide 19 L Anion Gap 18 BUN 46 H Creatinine 2.35 H Estim Creat Clear Calc 16.2 Estimated GFR 20 POC Glucose 145 H Random Glucose 291 H Calcium 8.2 L Phosphorus 2.3 L Magnesium 1.8 Albumin Random Vancomycin Blood Type Antibody Screen Crossmatch 05/20/24 05/21/24 05/21/24 23:34 05:22 05:29 WBC 5.4 RBC 2.81 L Hgb 8.1 L Hct 24.0 L MCV 85.4 MCH 28.8 MCHC 33.8 RDW 16.9 H Plt Count 24 L MPV Not Reportable Immature Gran % (Auto) Cancelled Neut % (Auto) Cancelled Lymph % (Auto) Cancelled [place] % (Auto) Cancelled Eos % (Auto) Cancelled Baso % (Auto) Cancelled Lymph # (Auto) Cancelled [place] # (Auto) Cancelled Eos # (Auto) Cancelled Baso # (Auto) Cancelled Abs Immat Gran (auto) Cancelled Absolute Neuts (auto) Cancelled Absolute Nucleated RBC 0.000 Nucleated RBC % (auto) 0.0 Neutrophils % (Manual) 52 Band Neutrophils % 11 H Lymphocytes % (Manual) 16 L Atypical Lymphs % (Man) 5 Monocytes % (Manual) 15 H Metamyelocytes % 1 Abs Neuts (Manual) 3.4 Lymphocytes # (Manual) 0.9 L Atyp Lymphs # (Manual) 0.3 Monocytes # (Manual) 0.8 Metamyelocytes # 0.1 Toxic Granulation PRESENT Toxic Vacuolation PRESENT Dohle Bodies PRESENT Platelet Estimate DECREASED Large Platelets PRESENT Plt Morphology Comment NOTED RBC Morphology NOTED Microcytosis 1+ (5-14) Spherocytes 1+ (0-2) Ovalocytes 1+ (5-14) Tavo Cells 1+ (0-2) VBG pH 7.54 H VBG pCO2 31 VBG pO2 41 VBG HCO3 27 H VBG O2 Saturation 84.0 VBG Base Excess 4.8 Sodium Potassium Chloride Carbon Dioxide Anion Gap BUN Creatinine Estim Creat Clear Calc Estimated GFR POC Glucose 143 H Random Glucose Calcium Phosphorus Magnesium Albumin Random Vancomycin Blood Type Antibody Screen Crossmatch 05/21/24 05/21/24 06:15 06:20 WBC RBC Hgb Hct MCV MCH MCHC RDW Plt Count MPV Immature Gran % (Auto) Neut % (Auto) Lymph % (Auto) [place] % (Auto) Eos % (Auto) Baso % (Auto) Lymph # (Auto) [place] # (Auto) Eos # (Auto) Baso # (Auto) Abs Immat Gran (auto) Absolute Neuts (auto) Absolute Nucleated RBC Nucleated RBC % (auto) Neutrophils % (Manual) Band Neutrophils % Lymphocytes % (Manual) Atypical Lymphs % (Man) Monocytes % (Manual) Metamyelocytes % Abs Neuts (Manual) Lymphocytes # (Manual) Atyp Lymphs # (Manual) Monocytes # (Manual) Metamyelocytes # Toxic Granulation Toxic Vacuolation Dohle Bodies Platelet Estimate Large Platelets Plt Morphology Comment RBC Morphology Microcytosis Spherocytes Ovalocytes Turner Cells VBG pH VBG pCO2 VBG pO2 VBG HCO3 VBG O2 Saturation VBG Base Excess Sodium 139 Potassium 3.1 L Chloride 102 Carbon Dioxide 25 Anion Gap 15 BUN 57 H Creatinine 2.40 H Estim Creat Clear Calc 16.5 Estimated GFR 20 POC Glucose 138 H Random Glucose 150 H Calcium 8.0 L Phosphorus 2.5 L Magnesium 1.8 Albumin 2.0 L Random Vancomycin Blood Type Antibody Screen Crossmatch Microbiology Microbiology Results: Microbiology 05/19/24 05:53 Blood - Venous Blood Culture - Preliminary No growth after 48 hours. 05/19/24 01:10 Sputum - Suctioned Gram Stain - Final 05/19/24 01:10 Sputum - Suctioned Sputum Culture - Final Pseudomonas aeruginosa Staphylococcus aureus 05/19/24 07:45 Blood - Venous Blood Culture - Preliminary No growth after 24 hours. 05/18/24 13:32 Blood - Venous Blood Culture - Preliminary Gram negative tom 05/18/24 12:07 Blood - Venous Blood Culture - Preliminary Gram negative tom Progress Note: A&P Assessment and plan (1) Acute and chronic respiratory failure: Status: Acute (2) Pneumonia: Status: Acute (3) Small cell carcinoma of lung: Status: Acute (4) COPD (chronic obstructive pulmonary disease): Status: Acute Plan Patient is a 73 Y F w/ hypertension, hyperlipidemia, chronic renal insufficiency, non-alcoholic cirrhosis, prior breast cancer, COPD, and active metastatic small-cell lung cancer followed by Dr. Jesus, c/b chronic hypoxic respiratory failure, presenting initially to emergency department on 05/18 w/ failure to thrive; work-up suggestive of pneumonia, initially admitted to medicine, though developed hypotension and hypoxia, prompting ICU admission N: intubated, sedated w/ propofol gtt, wean as tolerated CV: hypotension, c/f septic shock, norepinephrine gtt, wean as tolerated R: acute on chronic hypoxic respiratory failure d/t pneumonia, small-cell lung cancer, COPD, intubated 05/18, wean as tolerated GI: NPO : chronic renal insufficiency, to closely monitor renal indices, electrolytes H: pancytopenia; holding chemical DVT prophylaxis w/ heparin SQ if PLT < 50 ID: pneumonia d/t pseudomonas, MSSA, on vanc/cipro; to follow-up BCx 05/17 E: hypoglycemia, D5W gtt P: no acute issues S: following [id number] conversation w/ patient's son 05/20, will likely transition to philosophy of care to comfort-focused care in upcoming days Quality Stroke Does the patient have a stroke diagnosis?: No VTE Prior VTE?: No VTE Risk Level:: Medical - moderate - high VTE Device Contraindication: N/A - Device Ordered VTE Drug Contraindication: Treatment Not Tolerated
[2024-05-21] MEDS: Calcium Chloride 1 GM/10 ML SYRINGE IVPUSH (08:48)
[2024-05-21] MEDS: Potassium Phosphate/NS 15 MMOL/250 ML PLAST..BAG 62.5 MMOL IV (08:49)
[2024-05-21] MEDS: Albuterol/Iprat 2.5/0.5MG 3 ML AMPUL.NEB INHALE ×4 (08:53→20:18)
[2024-05-21] MEDS: Chlorhexidine Gluc Oral Rinse 15 ML MOUTHWASH BUCCAL ×3 (08:57→20:49)
[2024-05-21] MEDS: Ciprofloxacin Lactate/D5W 400 MG/200 ML PIGGYBACK 200 MG IV ×2 (08:59→20:49)
[2024-05-21] MEDS: Albumin Human 25 % 50 ML 100 ML IV (09:31)
--- NOTE | 2024-05-21 10:25 | MHC.CLN ---
F/U PT WITH INCREASED NUTRITION RISK R/T PRESSURE INJURY PT REMAINS INTUBATED AND SEDATED RECOMMEND PROMOTE AT MAX GOAL RATE 50ML/HR TO PROVIDE 1200KCALS (1346KCALS WITH SEDATION; 28ML/KG), 75G PROTEIN (1.6G/KG), 1007ML FREE WATER FROM FORMULA TF WILL PROMOTE WOUND HEALING MONITOR TOLERANCE AND LYTES
[2024-05-21 11:21] LABS: Glucose, Whole Blood 114 mg/dL (60-115)
--- NOTE | 2024-05-21 12:40 | MHC.CM.PN ---
Pt intubated in ICU: family is considering [employer]DB[employer] CUTTER following in depth discussion w/MD regarding outcomes and prognosis. [facility]. CM to follow.
[2024-05-21] MEDS: propofoL 1,000 MG/100 ML VIAL 5.54 MG IVCONT (12:58)
[2024-05-21 17:17] LABS: Glucose, Whole Blood 97 mg/dL (60-115)
[2024-05-21] MEDS: Amiodarone HCL 900 MG in 0.9 % Sodium Chloride 500 ML 17.27 MG IVCONT (17:32)
[2024-05-21] MEDS: propofoL 1,000 MG/100 ML VIAL 7.38 MG IVCONT (22:05)
[2024-05-21 23:46] LABS: Glucose, Whole Blood 123 mg/dL (60-115)
[2024-05-22] VITALS (48 sets, daily range): BP systolic 91–137; BP diastolic 48–77; PULSE 17–109; RESP 13–73; TEMP 34.3–37.8; O2SAT 92–97
[2024-05-22] MEDS: Furosemide 20 MG/2 ML VIAL IVPUSH (00:08)
[2024-05-22] MEDS: HYDROmorphone HCl 1 MG/ML SYRINGE IVPUSH ×2 (00:48→12:28)
[2024-05-22 04:51] LABS: VBG Base Excess 4.1 mmol/L; VBG HCO3 29 mmol/L (22-26); VBG pCO2 47 mmHg; VBG pH 7.39 (7.32-7.43); VBG pO2 44 mmHg
[2024-05-22 04:55] LABS: Venous Blood Gas Refer to POC result
[2024-05-22 05:03] LABS: Hematocrit 22.6 % (37.0-47.0); Hemoglobin 7.5 g/dl (12.0-16.0); Mean Corpuscular HGB Conc 33.2 g/dl (31.0-35.0); Mean Corpuscular Hemoglobin 28.7 pg (27.0-33.0); Mean Corpuscular Volume 86.6 fL (80.0-98.0); Red Blood Count 2.61 X10*6/uL (4.20-5.50); Red Cell Distribution Width 16.7 % (11.0-16.0)
[2024-05-22 05:23] LABS: Anion Gap 14 (12-20); Blood Urea Nitrogen 56 mg/dL (9-16); Calcium 8.7 mg/dL (8.4-10.2); Carbon Dioxide 26 mmol/L (22-29); Chloride 100 mmol/L (96-108); Creatinine Clr Calc Pharmacy 15.7; Estimated Glomerular Filt Rate 18; Glucose Random 145 mg/dL (60-115); Magnesium 1.8 mg/dL (1.6-2.6); Phosphorus 2.8 mg/dL (2.7-4.5); Potassium 3.5 mmol/L (3.3-5.1); Sodium 136 mmol/L (135-145)
--- NOTE | 2024-05-22 05:24 | PC.NURSE ---
Addendum entered by Landon Cope RN 05/22/24 05:59: platelets = 14 provider ordered platelet transfusion..for 4 bottles albumen 12.5 grams/50ml per provider Original Note: CARE ASSUMED 7PM...REMAINS INTUBATED....VENT= CPAP 5/PSV 10/FIO2 50% AT SHIFT CHANGE...Ve 5.8-6 L/M...RETURNED TO [facility] SUPPORT 8PM PER PROVIDER...AC 16/TV 260/FIO2 50%/PEEP 5..SEDATE WITH PROPOFOL 20 MCG/KG/MIN...LEVOPHED TITRATED PER MAR (INFUSING VIA CHEST PORT)...AMIODARONE 0.5 MG/MIN...NSR OVERNIGHT..REVERTED TO ATRIAL FIB WITH CONTROLLED HR THIS AM...PROVIDER AWARE,,,RODRIGUEZ REMAINED WITH MINIMAL OUTPUT...LASIX 20MG IV X1 GIVEN W/O CHANGE IN OUTPUT..RODRIGUEZ REMAINS 15-20 CC/HR...TUBE FEEDS TITRATED TO GOAL 50 CC/HR..NO BM OVERNIGHT...
[2024-05-22 05:30] LABS: PLT ABN DIST 1; WBC ABN SCTR FOR CBC 1; White Blood Count 7.9 X10*3/uL (4.8-10.8)
[2024-05-22 05:31] LABS: Platelet Count 14 X10*3/uL (160-400)
[2024-05-22 05:34] LABS: Band Neutrophils Percent 12 % (3-5); Lymphocytes Absolute Manual 0.9 X10*3/uL (1.2-4.9); Lymphocytes Percent Manual 12 % (20-40); Metamyelocytes Absolute 0.1 X10*3/uL; Metamyelocytes Percent 1 %; Monocytes Absolute Manual 0.6 X10*3/uL (0.1-1.2); Monocytes Percent Manual 7 % (2-11); Neutrophils Absolute Manual 6.3 X10*3/uL (2.0-8.3); Neutrophils Percent Manual 68 % (45-73)
[2024-05-22 05:37] LABS: Macrocytosis 1+ (5-14) /OIF; Microcytosis 1+ (5-14) /OIF; RBC Morphology NOTED
[2024-05-22 05:38] LABS: Burr Cells 1+ (0-2) /OIF; Dohle Bodies PRESENT; Large Platelet PRESENT; Ovalocytes 1+ (5-14) /OIF; Platelet Estimate DECREASED (NORMAL); Platelet Morphology Comment NOTED; Spherocytes 1+ (0-2) /OIF; Toxic Granulation PRESENT; Toxic Vacuolation PRESENT
[2024-05-22] MEDS: Albumin Human 25 % 50 ML 100 ML IV ×5 (05:49→09:50)
[2024-05-22] MEDS: Pantoprazole Sodium 40 MG/10 ML VIAL IVPUSH (06:43)
--- NOTE | 2024-05-22 08:00 | PM.CCPN ---
Subjective Subjective Date of Service: 05/22/24 Interval History: no significant overnight events Critical Care Time (minutes): 60 Physical Exam Vital Signs: Vital Signs: Last Vital Signs Temp 99.3 F 05/22/24 07:00 Pulse 99 05/22/24 07:00 Resp 23 H 05/22/24 07:00 BP 124/67 05/22/24 07:00 Pulse Ox 95 05/22/24 07:17 O2 Del Method Mechanical Ventil ation 05/22/24 07:00 O2 Flow Rate 50 05/18/24 23:00 FiO2 50 05/22/24 07:17 Oxygen Flow Rate 2 05/18/24 11:16 BMI result Body Mass Index 30.0 Const: Other: intubated, minimally sedated; no appreciable spontaneous movements General: no acute distress HEENT: Head: Yes normal to inspection, Yes normocephalic and Yes atraumatic Eyes: General: appearance normal, both eyes and all related structures Neck: Neck: Yes normal visual inspection, Yes full ROM, Yes no meningeal signs, Yes trachea midline and Yes supple Chest: Chest palpation & inspection: normal inspection of the chest Resp: Other: appreciable diffuse rhonchi; no appreciable rales, wheezing Cardio: Rate: regular rate Rhythm: abnormal rhythm GI: Inspection: Yes normal to inspection, No Abdominal wall edema and No distended Palpation (GI): Soft to palpation, not firm, nontender, no guarding and not rigid Skin: Other: appreciable scattered ecchymoses Neuro: General: tone normal and no meningeal signs Extrem: Other: appreciable trace pitting edema to bilateral shins General: Yes normal to inspection, Yes full ROM and Yes capillary refill normal Psych: Other: unable to assess Objective Data Labs 05/22/24 04:51 05/22/24 04:51 Labs: Laboratory Results - last 24 hr 05/21/24 05/21/24 05/21/24 05:22 11:17 17:14 WBC RBC Hgb Hct MCV MCH MCHC RDW Plt Count MPV Immature Gran % (Auto) Neut % (Auto) Lymph % (Auto) [place] % (Auto) Eos % (Auto) Baso % (Auto) Lymph # (Auto) [place] # (Auto) Eos # (Auto) Baso # (Auto) Abs Immat Gran (auto) Absolute Neuts (auto) Absolute Nucleated RBC Nucleated RBC % (auto) Neutrophils % (Manual) 52 Band Neutrophils % 11 H Lymphocytes % (Manual) 16 L Atypical Lymphs % (Man) 5 Monocytes % (Manual) 15 H Metamyelocytes % 1 Abs Neuts (Manual) 3.4 Lymphocytes # (Manual) 0.9 L Atyp Lymphs # (Manual) 0.3 Monocytes # (Manual) 0.8 Metamyelocytes # 0.1 Toxic Granulation PRESENT Toxic Vacuolation PRESENT Dohle Bodies PRESENT Platelet Estimate DECREASED Large Platelets PRESENT Plt Morphology Comment NOTED RBC Morphology NOTED Microcytosis 1+ (5-14) Macrocytosis Spherocytes 1+ (0-2) Ovalocytes 1+ (5-14) [place] Cells 1+ (0-2) VBG pH VBG pCO2 VBG pO2 VBG HCO3 VBG O2 Saturation VBG Base Excess Sodium Potassium Chloride Carbon Dioxide Anion Gap BUN Creatinine Estim Creat Clear Calc Estimated GFR POC Glucose 114 97 Random Glucose Calcium Phosphorus Magnesium Albumin 05/21/24 05/22/24 05/22/24 23:42 04:48 04:51 WBC 7.9 RBC 2.61 L Hgb 7.5 L Hct 22.6 L MCV 86.6 MCH 28.7 MCHC 33.2 RDW 16.7 H Plt Count 14 L* MPV Not Reportable Immature Gran % (Auto) Cancelled Neut % (Auto) Cancelled Lymph % (Auto) Cancelled [place] % (Auto) Cancelled Eos % (Auto) Cancelled Baso % (Auto) Cancelled Lymph # (Auto) Cancelled [place] # (Auto) Cancelled Eos # (Auto) Cancelled Baso # (Auto) Cancelled Abs Immat Gran (auto) Cancelled Absolute Neuts (auto) Cancelled Absolute Nucleated RBC 0.000 Nucleated RBC % (auto) 0.0 Neutrophils % (Manual) 68 Band Neutrophils % 12 H Lymphocytes % (Manual) 12 L Atypical Lymphs % (Man) Monocytes % (Manual) 7 Metamyelocytes % 1 Abs Neuts (Manual) 6.3 Lymphocytes # (Manual) 0.9 L Atyp Lymphs # (Manual) Monocytes # (Manual) 0.6 Metamyelocytes # 0.1 Toxic Granulation PRESENT Toxic Vacuolation PRESENT Dohle Bodies PRESENT Platelet Estimate DECREASED Large Platelets PRESENT Plt Morphology Comment NOTED RBC Morphology NOTED Microcytosis 1+ (5-14) Macrocytosis 1+ (5-14) Spherocytes 1+ (0-2) Ovalocytes 1+ (5-14) [place] Cells 1+ (0-2) VBG pH 7.39 VBG pCO2 47 VBG pO2 44 VBG HCO3 29 H VBG O2 Saturation 75.0 VBG Base Excess 4.1 Sodium 136 Potassium 3.5 Chloride 100 Carbon Dioxide 26 Anion Gap 14 BUN 56 H Creatinine 2.59 H Estim Creat Clear Calc 15.7 Estimated GFR 18 POC Glucose 123 H Random Glucose 145 H Calcium 8.7 D Phosphorus 2.8 Magnesium 1.8 Albumin 2.0 L Microbiology Microbiology Results: Microbiology 05/19/24 07:45 Blood - Venous Blood Culture - Preliminary No growth after 48 hours. 05/18/24 13:32 Blood - Venous Blood Culture - Final Pseudomonas aeruginosa 05/18/24 12:07 Blood - Venous Blood Culture - Final Pseudomonas aeruginosa 05/19/24 05:53 Blood - Venous Blood Culture - Preliminary No growth after 48 hours. 05/19/24 01:10 Sputum - Suctioned Gram Stain - Final 05/19/24 01:10 Sputum - Suctioned Sputum Culture - Final Pseudomonas aeruginosa Staphylococcus aureus Progress Note: A&P Assessment and plan (1) COPD (chronic obstructive pulmonary disease): Status: Acute (2) Acute and chronic respiratory failure: Status: Acute (3) Pneumonia: Status: Acute (4) Small cell carcinoma of lung: Status: Acute Plan Patient is a 73 Y F w/ hypertension, hyperlipidemia, chronic renal insufficiency, non-alcoholic cirrhosis, prior breast cancer, COPD, and active metastatic small-cell lung cancer followed by Dr. Jesus, c/b chronic hypoxic respiratory failure, presenting initially to emergency department on 05/18 w/ failure to thrive; work-up suggestive of pneumonia, initially admitted to medicine, though developed hypotension and hypoxia, prompting ICU admission N: intubated, sedated w/ propofol gtt, wean as tolerated CV: hypotension, c/f septic shock, norepinephrine gtt, wean as tolerated R: acute on chronic hypoxic respiratory failure d/t pneumonia, small-cell lung cancer, COPD, intubated 05/18, wean as tolerated GI: tube feeds : chronic renal insufficiency, to closely monitor renal indices, electrolytes H: pancytopenia, transfusions as needed; holding chemical DVT prophylaxis w/ heparin SQ if PLT < 50 ID: pneumonia d/t pseudomonas, MSSA, on vanc/cipro; to follow-up BCx 05/17 E: no acute issues P: no acute issues S: following [id number] conversation w/ patient's son 05/20, will likely transition to philosophy of care to comfort-focused care in upcoming days Quality Stroke Does the patient have a stroke diagnosis?: No VTE Prior VTE?: No VTE Risk Level:: Medical - moderate - high VTE Device Contraindication: N/A - Device Ordered VTE Drug Contraindication: Treatment Not Tolerated
[2024-05-22] MEDS: 0.9 % Sodium Chloride Flush 3 ML SYRINGE IVFLUSH ×2 (08:19→16:41)
[2024-05-22] MEDS: Sulfameth/Trimet 800/160/20 ML 20 ML ORAL.SUSP PO ×2 (08:20→21:25)
[2024-05-22] MEDS: Ciprofloxacin Lactate/D5W 400 MG/200 ML PIGGYBACK 200 MG IV ×2 (08:20→21:25)
[2024-05-22] MEDS: Chlorhexidine Gluc Oral Rinse 15 ML MOUTHWASH BUCCAL ×3 (08:20→21:25)
[2024-05-22] MEDS: Albuterol/Iprat 2.5/0.5MG 3 ML AMPUL.NEB INHALE ×4 (09:12→19:09)
[2024-05-22] MEDS: propofoL 1,000 MG/100 ML VIAL 11.07 MG IVCONT ×2 (09:39→18:07)
[2024-05-22] MEDS: Norepinephrine Bitartrate/D5W 8 MG/250 ML PLAST..BAG 14.99 MG IVCONT (10:09)
--- NOTE | 2024-05-22 10:14 | MHC.CLN ---
F/U PT REMAINS INTUBATED AND SEDATED RECEIVING PROMOTE AT MAX GOAL RATE 50ML/HR PROVIDES 1200KCALS (1395KCALS WITH SEDATION; 29ML/KG), 75G PROTEIN (1.6G/KG), 1007ML FREE WATER FROM FORMULA TF WILL PROMOTE WOUND HEALING RECOMMEND ADDING 120ML FREE WATER FLUSHES Q 8 HRS TO PROVIDE 1367ML TOTAL WATER FROM FORMULA AND FLUSHES (28ML/KG) MONITOR TOLERANCE AND LYTES
[2024-05-22 11:44] LABS: Glucose, Whole Blood 107 mg/dL (60-115)
--- NOTE | 2024-05-22 12:20 | MHC.CM.PN ---
Pt continues on ventilatory support: family considering MANAGER RETENTION but have not yet made a decision. Family to visit today. [facility] - unsure if she will return at this time. CM to follow
--- NOTE | 2024-05-22 16:58 | HO.SKINPHOTO ---
Location:R abd fold Category: Stage: Length: Width: Depth: cm Location: Category: Stage: Length: Width: Depth: cm Location: Category: Stage: Length: Width: Depth: cm Location: Category: Stage: Length: Width: Depth: cm Location: Category: Stage: Length: Width: Depth: cm Location: Category: Stage: Length: Width: Depth: cm
[2024-05-22 17:45] LABS: Glucose, Whole Blood 109 mg/dL (60-115)
[2024-05-22] MEDS: Amiodarone HCL 900 MG in 0.9 % Sodium Chloride 500 ML 17.27 MG IVCONT (18:02)
[2024-05-22 18:34] LABS: Vancomycin Random 22.4 mcg/mL (15-20)
--- NOTE | 2024-05-22 18:43 | PC.NURSE ---
Assumed care at 0700. Pt received 1 unit platelets. Levophed titrated per protocol. Pt remained in afib, amio drip per protocol. WOB increased, medications adjusted per MAY. Vent settings unchanged. Thick brown inline secretions upon suctioning ETT.
[2024-05-22 20:27] LABS: Strep Pneumo Ag urine Not Detected (Not Detected)
[2024-05-23] VITALS (44 sets, daily range): BP systolic 92–129; BP diastolic 52–69; PULSE 64–105; RESP 16–69; TEMP 34.3–37.6; O2SAT 88–98; BMI 30.6
[2024-05-23 00:15] LABS: Glucose, Whole Blood 115 mg/dL (60-115)
[2024-05-23] MEDS: 0.9 % Sodium Chloride Flush 3 ML SYRINGE IVFLUSH ×4 (00:16→22:40)
[2024-05-23] MEDS: propofoL 1,000 MG/100 ML VIAL 14.76 MG IVCONT ×4 (01:38→22:40)
[2024-05-23] MEDS: Norepinephrine Bitartrate/D5W 8 MG/250 ML PLAST..BAG 12.68 MG IVCONT (04:19)
[2024-05-23 05:20] LABS: VBG Base Excess 3.7 mmol/L; VBG HCO3 25 mmol/L (22-26); VBG pCO2 27 mmHg; VBG pH 7.57 (7.32-7.43); VBG pO2 42 mmHg
[2024-05-23 05:21] LABS: Venous Blood Gas Refer to POC result
[2024-05-23 05:44] LABS: Hematocrit 21.8 % (37.0-47.0); Hemoglobin 7.5 g/dl (12.0-16.0); Mean Corpuscular HGB Conc 34.4 g/dl (31.0-35.0); Mean Corpuscular Hemoglobin 29.2 pg (27.0-33.0); Mean Corpuscular Volume 84.8 fL (80.0-98.0); Red Blood Count 2.57 X10*6/uL (4.20-5.50); Red Cell Distribution Width 17.1 % (11.0-16.0); WBC ABN SCTR FOR CBC 1; White Blood Count 10.8 X10*3/uL (4.8-10.8)
[2024-05-23 05:47] LABS: Platelet Count 18 X10*3/uL (160-400)
[2024-05-23] MEDS: Pantoprazole Sodium 40 MG/10 ML VIAL IVPUSH (05:59)
[2024-05-23 06:02] LABS: Albumin Level 2.6 g/dL (3.5-5.0); Anion Gap 16 (12-20); Blood Urea Nitrogen 65 mg/dL (9-16); Calcium 8.5 mg/dL (8.4-10.2); Carbon Dioxide 21 mmol/L (22-29); Chloride 100 mmol/L (96-108); Creatinine Clr Calc Pharmacy 15.3; Estimated Glomerular Filt Rate 17; Glucose Random 136 mg/dL (60-115); Magnesium 1.7 mg/dL (1.6-2.6); Phosphorus 2.3 mg/dL (2.7-4.5); Sodium 133 mmol/L (135-145)
[2024-05-23 06:16] LABS: Band Neutrophils Percent 3 % (3-5); Eosinophils Absolute Manual 0.2 X10*3/uL (0.0-0.4); Eosinophils Percent Manual 2 % (0-4); Lymphocytes Absolute Manual 0.8 X10*3/uL (1.2-4.9); Lymphocytes Percent Manual 7 % (20-40); Monocytes Absolute Manual 0.3 X10*3/uL (0.1-1.2); Monocytes Percent Manual 3 % (2-11); Neutrophils Absolute Manual 9.5 X10*3/uL (2.0-8.3); Neutrophils Percent Manual 85 % (45-73)
[2024-05-23 06:18] LABS: Basophilic Stippling 1+ (0-2) /OIF; Burr Cells 1+ (0-2) /OIF; Dohle Bodies PRESENT; Large Platelet PRESENT; Microcytosis 1+ (5-14) /OIF; Ovalocytes 1+ (5-14) /OIF; Platelet Estimate DECREASED (NORMAL); Platelet Morphology Comment NOTED; RBC Morphology NOTED; Spherocytes 1+ (0-2) /OIF; Toxic Granulation PRESENT
[2024-05-23 06:19] LABS: Toxic Vacuolation PRESENT
--- NOTE | 2024-05-23 07:00 | PC.NURSE ---
Patient remains intubated and sedated. Propofol gtt running per MAY. RASS -4 for vent synchrony. SR/Afib/Accelerated junctional on tele, HR 60s-70s. Amio and levophed gtts infusing per MAY, patient profoundly edematous. Lung sounds coarse, see vent assessment. Abdomen large and soft, TF infusing without issue, see TF assessment. Henderson catheter in place draining clear yellow urine. Patient dysuric, UOP approx 10-25mL/hr, provider aware. Skin edematous and with extensive bruising r/t thrombocytopenia, see skin note. Patient repositioned Q2HR, bed locked in lowest position, bed alarm on.?
[2024-05-23] MEDS: Potassium Phosphate/NS 15 MMOL/250 ML PLAST..BAG 62.5 MMOL IV (07:21)
[2024-05-23] MEDS: Chlorhexidine Gluc Oral Rinse 15 ML MOUTHWASH BUCCAL ×3 (07:38→19:41)
[2024-05-23] MEDS: Sulfameth/Trimet 800/160/20 ML 20 ML ORAL.SUSP PO ×2 (08:19→19:41)
[2024-05-23] MEDS: Ciprofloxacin Lactate/D5W 400 MG/200 ML PIGGYBACK 200 MG IV ×2 (08:19→19:41)
--- NOTE | 2024-05-23 08:29 | PM.CCPN ---
Subjective Subjective Date of Service: 05/23/24 Interval History: no significant overnight events Critical Care Time (minutes): 60 Physical Exam Vital Signs: Vital Signs: Last Vital Signs Temp 99.5 F 05/23/24 06:00 Pulse 66 05/23/24 08:00 Resp 16 05/23/24 08:00 BP 116/64 05/23/24 08:00 Pulse Ox 93 05/23/24 08:00 O2 Del Method Mechanical Ventil ation 05/23/24 08:00 O2 Flow Rate 50 05/18/24 23:00 FiO2 50 05/23/24 08:00 Oxygen Flow Rate 2 05/18/24 11:16 BMI result Body Mass Index 30.6 Const: Other: intubated, sedated; no appreciable overt distress, though appreciable head bobbing; chronically-ill appearing HEENT: Head: Yes normal to inspection, Yes normocephalic and Yes atraumatic Eyes: General: appearance normal, both eyes and all related structures Neck: Neck: Yes normal visual inspection, Yes full ROM, Yes no meningeal signs, Yes trachea midline and Yes supple Chest: Chest palpation & inspection: normal inspection of the chest Resp: Other: no no appreciable overt rales, rhonchi, wheezing Effort & Inspection: retractions Cardio: Rate: regular rate Rhythm: regular rhythm GI: Inspection: Yes normal to inspection, No Abdominal wall edema and No distended Palpation (GI): Soft to palpation, not firm, nontender, no guarding and not rigid Skin: General skin exam: no rashes or lesions noted Neuro: Other: some appreciable spontaneous movements; no appreciable purposeful movements General: tone normal and no meningeal signs Extrem: General: Yes normal to inspection, Yes full ROM, Yes capillary refill normal and Yes no clubbing, cyanosis or edema Psych: Other: unable to assess Objective Data Labs 05/23/24 05:10 05/23/24 05:10 Labs: Laboratory Results - last 24 hr 05/19/24 05/20/24 05/22/24 01:10 06:32 11:39 WBC RBC Hgb Hct MCV MCH MCHC RDW Plt Count MPV Immature Gran % (Auto) Neut % (Auto) Lymph % (Auto) [place] % (Auto) Eos % (Auto) Baso % (Auto) Lymph # (Auto) [place] # (Auto) Eos # (Auto) Baso # (Auto) Abs Immat Gran (auto) Absolute Neuts (auto) Absolute Nucleated RBC Nucleated RBC % (auto) Neutrophils % (Manual) Band Neutrophils % Lymphocytes % (Manual) Monocytes % (Manual) Eosinophils % (Manual) Abs Neuts (Manual) Lymphocytes # (Manual) Monocytes # (Manual) Eosinophils # (Manual) Toxic Granulation Toxic Vacuolation Dohle Bodies Platelet Estimate Large Platelets Plt Morphology Comment RBC Morphology Basophilic Stippling Microcytosis Spherocytes Ovalocytes Tavo Cells VBG pH VBG pCO2 VBG pO2 VBG HCO3 VBG O2 Saturation VBG Base Excess Sodium Potassium Chloride Carbon Dioxide Anion Gap BUN Creatinine Estim Creat Clear Calc Estimated GFR POC Glucose 107 Random Glucose Calcium Phosphorus Magnesium Albumin Random Vancomycin Ur Strep pneumoniae Ag Not Detected Blood Type A Positive Antibody Screen NEGATIVE Crossmatch See Detail 05/22/24 05/22/24 05/23/24 17:39 18:13 00:11 WBC RBC Hgb Hct MCV MCH MCHC RDW Plt Count MPV Immature Gran % (Auto) Neut % (Auto) Lymph % (Auto) [place] % (Auto) Eos % (Auto) Baso % (Auto) Lymph # (Auto) [place] # (Auto) Eos # (Auto) Baso # (Auto) Abs Immat Gran (auto) Absolute Neuts (auto) Absolute Nucleated RBC Nucleated RBC % (auto) Neutrophils % (Manual) Band Neutrophils % Lymphocytes % (Manual) Monocytes % (Manual) Eosinophils % (Manual) Abs Neuts (Manual) Lymphocytes # (Manual) Monocytes # (Manual) Eosinophils # (Manual) Toxic Granulation Toxic Vacuolation Dohle Bodies Platelet Estimate Large Platelets Plt Morphology Comment RBC Morphology Basophilic Stippling Microcytosis Spherocytes Ovalocytes Tavo Cells VBG pH VBG pCO2 VBG pO2 VBG HCO3 VBG O2 Saturation VBG Base Excess Sodium Potassium Chloride Carbon Dioxide Anion Gap BUN Creatinine Estim Creat Clear Calc Estimated GFR POC Glucose 109 115 Random Glucose Calcium Phosphorus Magnesium Albumin Random Vancomycin 22.4 H Ur Strep pneumoniae Ag Blood Type Antibody Screen Crossmatch 05/23/24 05/23/24 05:10 05:14 WBC 10.8 RBC 2.57 L Hgb 7.5 L Hct 21.8 L MCV 84.8 MCH 29.2 MCHC 34.4 RDW 17.1 H Plt Count 18 L* MPV TNP Immature Gran % (Auto) Cancelled Neut % (Auto) Cancelled Lymph % (Auto) Cancelled [place] % (Auto) Cancelled Eos % (Auto) Cancelled Baso % (Auto) Cancelled Lymph # (Auto) Cancelled [place] # (Auto) Cancelled Eos # (Auto) Cancelled Baso # (Auto) Cancelled Abs Immat Gran (auto) Cancelled Absolute Neuts (auto) Cancelled Absolute Nucleated RBC 0.000 Nucleated RBC % (auto) 0.0 Neutrophils % (Manual) 85 H Band Neutrophils % 3 Lymphocytes % (Manual) 7 L Monocytes % (Manual) 3 Eosinophils % (Manual) 2 Abs Neuts (Manual) 9.5 H Lymphocytes # (Manual) 0.8 L Monocytes # (Manual) 0.3 Eosinophils # (Manual) 0.2 Toxic Granulation PRESENT Toxic Vacuolation PRESENT Dohle Bodies PRESENT Platelet Estimate DECREASED Large Platelets PRESENT Plt Morphology Comment NOTED RBC Morphology NOTED Basophilic Stippling 1+ (0-2) Microcytosis 1+ (5-14) Spherocytes 1+ (0-2) Ovalocytes 1+ (5-14) Tavo Cells 1+ (0-2) VBG pH 7.57 H VBG pCO2 27 VBG pO2 42 VBG HCO3 25 VBG O2 Saturation 82.0 VBG Base Excess 3.7 Sodium 133 L Potassium 4.0 Chloride 100 Carbon Dioxide 21 L Anion Gap 16 BUN 65 H Creatinine 2.66 H Estim Creat Clear Calc 15.3 Estimated GFR 17 POC Glucose Random Glucose 136 H Calcium 8.5 Phosphorus 2.3 L Magnesium 1.7 Albumin 2.6 L Random Vancomycin Ur Strep pneumoniae Ag Blood Type Antibody Screen Crossmatch Microbiology Microbiology Results: Microbiology 05/19/24 07:45 Blood - Venous Blood Culture - Preliminary No growth after 48 hours. 05/18/24 13:32 Blood - Venous Blood Culture - Final Pseudomonas aeruginosa 05/18/24 12:07 Blood - Venous Blood Culture - Final Pseudomonas aeruginosa 05/19/24 05:53 Blood - Venous Blood Culture - Preliminary No growth after 48 hours. 05/19/24 01:10 Sputum - Suctioned Gram Stain - Final 05/19/24 01:10 Sputum - Suctioned Sputum Culture - Final Pseudomonas aeruginosa Staphylococcus aureus Progress Note: A&P Assessment and plan (1) Acute and chronic respiratory failure: Status: Acute (2) Pneumonia: Status: Acute (3) COPD (chronic obstructive pulmonary disease): Status: Acute (4) Small cell carcinoma of lung: Status: Acute Plan Patient is a 73 Y F w/ hypertension, hyperlipidemia, chronic renal insufficiency, non-alcoholic cirrhosis, prior breast cancer, COPD, and active metastatic small-cell lung cancer followed by Dr. Jesus, c/b chronic hypoxic respiratory failure, presenting initially to emergency department on 05/18 w/ failure to thrive; work-up suggestive of pneumonia, initially admitted to medicine, though developed hypotension and hypoxia, prompting ICU admission N: intubated, sedated w/ propofol gtt, wean as tolerated CV: hypotension, c/f septic shock, norepinephrine gtt, wean as tolerated R: acute on chronic hypoxic respiratory failure d/t pneumonia, small-cell lung cancer, COPD, intubated 05/18, wean as tolerated GI: tube feeds : chronic renal insufficiency, to closely monitor renal indices, electrolytes H: pancytopenia, transfusions as needed; holding chemical DVT prophylaxis w/ heparin SQ if PLT < 50 ID: pneumonia d/t pseudomonas, MSSA, on vanc/cipro; to follow-up BCx 05/17 E: no acute issues P: no acute issues S: following [id number] conversation w/ patient's son 05/20, will likely transition to philosophy of care to comfort-focused care in upcoming days Quality Stroke Does the patient have a stroke diagnosis?: No VTE Prior VTE?: No VTE Risk Level:: Medical - moderate - high VTE Device Contraindication: N/A - Device Ordered VTE Drug Contraindication: Treatment Not Tolerated
[2024-05-23] MEDS: Albumin Human 25 % 50 ML 100 ML IV (08:43)
[2024-05-23] MEDS: Albuterol/Iprat 2.5/0.5MG 3 ML AMPUL.NEB INHALE ×4 (08:50→18:48)
--- NOTE | 2024-05-23 09:14 | P.ACPN_ITS ---
Advanced Care Planning Note Advanced Care Planning Note Discussed with: patient Time spent (in minutes): 10 Narrative: I called Mr. Crawford this morning and offered updates; Mr. Crawford stated he feels it would be appropriate to transition Ms. Crawford's philosophy of care to comfort- focused care on 05/25 Problems Discussed (1) Acute and chronic respiratory failure: (2) Pneumonia: (3) COPD (chronic obstructive pulmonary disease): (4) Small cell carcinoma of lung:
[2024-05-23 11:54] LABS: Glucose, Whole Blood 150 mg/dL (60-115)
[2024-05-23 17:47] LABS: Glucose, Whole Blood 158 mg/dL (60-115)
[2024-05-23] MEDS: Insulin Lispro 100 UNIT/ML 3 ML VIAL SUBCUT (18:04)
[2024-05-23 18:26] LABS: Vancomycin Random 18.7 mcg/mL (15-20)
--- NOTE | 2024-05-23 18:46 | PC.NURSE ---
Assumed care at 0700. Propofol drip running per MAY. Amio drip stopped per MAY. Vent settings unchanged. Per MD discussion with HCP/son Ross, pt is to be transitioned to comfort care on Saturday05/25/24. 1 unit of platelets given. Pt repositioned q2hr.
[2024-05-23] MEDS: HYDROmorphone HCl 1 MG/ML SYRINGE IVPUSH (23:51)
[2024-05-24] VITALS (48 sets, daily range): BP systolic 75–124; BP diastolic 37–73; PULSE 62–90; RESP 14–30; TEMP 35–37.7; O2SAT 89–97; BMI 30.7
[2024-05-24 00:29] LABS: Glucose, Whole Blood 162 mg/dL (60-115)
[2024-05-24] MEDS: Insulin Lispro 100 UNIT/ML 3 ML VIAL SUBCUT (00:36)
[2024-05-24] MEDS: propofoL 1,000 MG/100 ML VIAL 14.76 MG IVCONT (03:11)
[2024-05-24] MEDS: HYDROmorphone HCl 1 MG/ML SYRINGE IVPUSH (04:39)
[2024-05-24 05:38] LABS: VBG Base Excess 1.6 mmol/L; VBG HCO3 23 mmol/L (22-26); VBG pCO2 26 mmHg; VBG pH 7.55 (7.32-7.43); VBG pO2 48 mmHg
[2024-05-24 05:41] LABS: Venous Blood Gas Refer to POC result
[2024-05-24 06:03] LABS: Mean Corpuscular HGB Conc 32.9 g/dl (31.0-35.0); Mean Corpuscular Hemoglobin 28.1 pg (27.0-33.0); Mean Corpuscular Volume 85.5 fL (80.0-98.0); Red Blood Count 2.42 X10*6/uL (4.20-5.50); White Blood Count 10.6 X10*3/uL (4.8-10.8)
[2024-05-24 06:06] LABS: Platelet Count 27 X10*3/uL (160-400)
[2024-05-24 06:07] LABS: Hematocrit 20.7 % (37.0-47.0); Hemoglobin 6.8 g/dl (12.0-16.0)
--- NOTE | 2024-05-24 06:15 | PC.NURSE ---
Patient remains intubated and sedated. Propofol gtt running per MAY. RASS -4 for vent synchrony. SR/Afib on tele, HR 60s-80s. Levophed gtt infusing per MAY.? Lung sounds coarse and rhonchorous, see vent assessment. TF infusing at goal. Henderson catheter in place, with decreased UOP, approx 5-20mL/hr. Skin edematous and with extensive bruising/purpura r/t thrombocytopenia, see skin note. GUY López notified of all?critical labs and changes in patient status. Patient repositioned Q2HR, bed locked in lowest position, bed alarm on.?
[2024-05-24 06:19] LABS: Albumin Level 2.4 g/dL (3.5-5.0); Anion Gap 17 (12-20); Blood Urea Nitrogen 71 mg/dL (9-16); Calcium 8.4 mg/dL (8.4-10.2); Carbon Dioxide 21 mmol/L (22-29); Chloride 98 mmol/L (96-108); Creatinine Clr Calc Pharmacy 15.4; Estimated Glomerular Filt Rate 17; Glucose Random 140 mg/dL (60-115); Magnesium 1.6 mg/dL (1.6-2.6); Phosphorus 3.8 mg/dL (2.7-4.5); Sodium 131 mmol/L (135-145)
[2024-05-24 06:31] LABS: Band Neutrophils Percent 6 % (3-5); Lymphocytes Absolute Manual 0.2 X10*3/uL (1.2-4.9); Lymphocytes Percent Manual 2 % (20-40); Monocytes Absolute Manual 0.2 X10*3/uL (0.1-1.2); Monocytes Percent Manual 2 % (2-11); Neutrophils Absolute Manual 10.2 X10*3/uL (2.0-8.3); Neutrophils Percent Manual 90 % (45-73)
[2024-05-24] MEDS: Pantoprazole Sodium 40 MG/10 ML VIAL IVPUSH (06:32)
[2024-05-24 06:34] LABS: Large Platelet PRESENT; Ovalocytes 1+ (5-14) /OIF; Platelet Estimate DECREASED (NORMAL); Platelet Morphology Comment NOTED; RBC Morphology NOTED
[2024-05-24 06:35] LABS: Burr Cells 1+ (0-2) /OIF; Dohle Bodies PRESENT; Smudge Cells PRESENT; Toxic Granulation PRESENT; Toxic Vacuolation PRESENT
[2024-05-24] MEDS: 0.9 % Sodium Chloride Flush 3 ML SYRINGE IVFLUSH ×3 (07:13→20:08)
[2024-05-24] MEDS: Albumin Human 25 % 50 ML 100 ML IV ×4 (07:17→08:56)
[2024-05-24] MEDS: Chlorhexidine Gluc Oral Rinse 15 ML MOUTHWASH BUCCAL ×3 (07:54→20:07)
--- NOTE | 2024-05-24 08:18 | PM.CCPN ---
Subjective Subjective Date of Service: 05/24/24 Interval History: no significant overnight events Critical Care Time (minutes): 60 Physical Exam Vital Signs: Vital Signs: Last Vital Signs Temp 97.3 F 05/24/24 08:03 Pulse 66 05/24/24 08:03 Resp 17 05/24/24 08:03 BP 107/49 L 05/24/24 08:03 Pulse Ox 94 05/24/24 07:19 O2 Del Method Mechanical Ventil ation 05/24/24 07:00 O2 Flow Rate 50 05/23/24 15:00 FiO2 50 05/24/24 07:19 Oxygen Flow Rate 2 05/18/24 11:16 BMI result Body Mass Index 30.7 Const: Other: intubated, sedated; some appreciable increased work of breathing; chronically-ill appearing General: no acute distress HEENT: Head: Yes normal to inspection, Yes normocephalic and Yes atraumatic Eyes: General: appearance normal, both eyes and all related structures Neck: Neck: Yes normal visual inspection, Yes full ROM, Yes no meningeal signs, Yes trachea midline and Yes supple Chest: Chest palpation & inspection: normal inspection of the chest Resp: Other: some appreciable end-expiratory wheezing; no appreciable rales, rhonchi Effort & Inspection: normal respiratory effort Cardio: Rate: regular rate Rhythm: regular rhythm GI: Inspection: Yes normal to inspection, No Abdominal wall edema and No distended Palpation (GI): Soft to palpation, not firm, nontender, no guarding and not rigid Skin: General skin exam: no rashes or lesions noted Neuro: Other: no appreciable spontaneous movements General: tone normal and no meningeal signs Extrem: Other: appreciable trace pitting edema to bilateral shins General: Yes normal to inspection, Yes full ROM and Yes capillary refill normal Psych: Other: unable to assess Objective Data Labs 05/24/24 05:29 05/24/24 05:29 Labs: Laboratory Results - last 24 hr 05/20/24 05/23/24 05/23/24 06:32 11:49 17:43 WBC RBC Hgb Hct MCV MCH MCHC RDW Plt Count MPV Immature Gran % (Auto) Neut % (Auto) Lymph % (Auto) [place] % (Auto) Eos % (Auto) Baso % (Auto) Lymph # (Auto) [place] # (Auto) Eos # (Auto) Baso # (Auto) Abs Immat Gran (auto) Absolute Neuts (auto) Absolute Nucleated RBC Nucleated RBC % (auto) Neutrophils % (Manual) Band Neutrophils % Lymphocytes % (Manual) Monocytes % (Manual) Abs Neuts (Manual) Lymphocytes # (Manual) Monocytes # (Manual) Smudge Cells Toxic Granulation Toxic Vacuolation Dohle Bodies Platelet Estimate Large Platelets Plt Morphology Comment RBC Morphology Ovalocytes [place] Cells VBG pH VBG pCO2 VBG pO2 VBG HCO3 VBG O2 Saturation VBG Base Excess Sodium Potassium Chloride Carbon Dioxide Anion Gap BUN Creatinine Estim Creat Clear Calc Estimated GFR POC Glucose 150 H 158 H Random Glucose Calcium Phosphorus Magnesium Albumin Random Vancomycin Blood Type A Positive Antibody Screen NEGATIVE Crossmatch See Detail 05/23/24 05/24/24 05/24/24 18:03 00:25 05:29 WBC 10.6 RBC 2.42 L Hgb 6.8 L* Hct 20.7 L* MCV 85.5 MCH 28.1 MCHC 32.9 RDW 17.0 H Plt Count 27 L D MPV TNP Immature Gran % (Auto) Cancelled Neut % (Auto) Cancelled Lymph % (Auto) Cancelled [place] % (Auto) Cancelled Eos % (Auto) Cancelled Baso % (Auto) Cancelled Lymph # (Auto) Cancelled [place] # (Auto) Cancelled Eos # (Auto) Cancelled Baso # (Auto) Cancelled Abs Immat Gran (auto) Cancelled Absolute Neuts (auto) Cancelled Absolute Nucleated RBC 0.000 Nucleated RBC % (auto) 0.0 Neutrophils % (Manual) 90 H Band Neutrophils % 6 H Lymphocytes % (Manual) 2 L Monocytes % (Manual) 2 Abs Neuts (Manual) 10.2 H Lymphocytes # (Manual) 0.2 L Monocytes # (Manual) 0.2 Smudge Cells PRESENT Toxic Granulation PRESENT Toxic Vacuolation PRESENT Dohle Bodies PRESENT Platelet Estimate DECREASED Large Platelets PRESENT Plt Morphology Comment NOTED RBC Morphology NOTED Ovalocytes 1+ (5-14) [place] Cells 1+ (0-2) VBG pH VBG pCO2 VBG pO2 VBG HCO3 VBG O2 Saturation VBG Base Excess Sodium 131 L Potassium 5.0 D Chloride 98 Carbon Dioxide 21 L Anion Gap 17 BUN 71 H Creatinine 2.69 H Estim Creat Clear Calc 15.4 Estimated GFR 17 POC Glucose 162 H Random Glucose 140 H Calcium 8.4 Phosphorus 3.8 Magnesium 1.6 Albumin 2.4 L Random Vancomycin 18.7 Blood Type Antibody Screen Crossmatch 05/24/24 05/24/24 05:33 06:43 WBC RBC Hgb Hct MCV MCH MCHC RDW Plt Count MPV Immature Gran % (Auto) Neut % (Auto) Lymph % (Auto) [place] % (Auto) Eos % (Auto) Baso % (Auto) Lymph # (Auto) [place] # (Auto) Eos # (Auto) Baso # (Auto) Abs Immat Gran (auto) Absolute Neuts (auto) Absolute Nucleated RBC Nucleated RBC % (auto) Neutrophils % (Manual) Band Neutrophils % Lymphocytes % (Manual) Monocytes % (Manual) Abs Neuts (Manual) Lymphocytes # (Manual) Monocytes # (Manual) Smudge Cells Toxic Granulation Toxic Vacuolation Dohle Bodies Platelet Estimate Large Platelets Plt Morphology Comment RBC Morphology Ovalocytes [place] Cells VBG pH 7.55 H VBG pCO2 26 VBG pO2 48 VBG HCO3 23 VBG O2 Saturation Not Reportable VBG Base Excess 1.6 Sodium Potassium Chloride Carbon Dioxide Anion Gap BUN Creatinine Estim Creat Clear Calc Estimated GFR POC Glucose Random Glucose Calcium Phosphorus Magnesium Albumin Random Vancomycin Blood Type A Positive Antibody Screen NEGATIVE Crossmatch See Detail Microbiology Microbiology Results: Microbiology 05/19/24 05:53 Blood - Venous Blood Culture - Final No growth after 5 days. 05/19/24 07:45 Blood - Venous Blood Culture - Preliminary No growth after 48 hours. 05/18/24 13:32 Blood - Venous Blood Culture - Final Pseudomonas aeruginosa 05/18/24 12:07 Blood - Venous Blood Culture - Final Pseudomonas aeruginosa 05/19/24 01:10 Sputum - Suctioned Gram Stain - Final 05/19/24 01:10 Sputum - Suctioned Sputum Culture - Final Pseudomonas aeruginosa Staphylococcus aureus Progress Note: A&P Assessment and plan (1) Acute and chronic respiratory failure: Status: Acute (2) Pneumonia: Status: Acute (3) COPD (chronic obstructive pulmonary disease): Status: Acute (4) Small cell carcinoma of lung: Status: Acute Plan Patient is a 73 Y F w/ hypertension, hyperlipidemia, chronic renal insufficiency, non-alcoholic cirrhosis, prior breast cancer, COPD, and active metastatic small-cell lung cancer followed by Dr. Jesus, c/b chronic hypoxic respiratory failure, presenting initially to emergency department on 05/18 w/ failure to thrive; work-up suggestive of pneumonia, initially admitted to medicine, though developed hypotension and hypoxia, prompting ICU admission N: intubated, sedated w/ propofol gtt, wean as tolerated CV: hypotension, c/f septic shock, norepinephrine gtt, wean as tolerated R: acute on chronic hypoxic respiratory failure d/t pneumonia, small-cell lung cancer, COPD, intubated 05/18, wean as tolerated GI: tube feeds : chronic renal insufficiency, to closely monitor renal indices, electrolytes H: pancytopenia, transfusions as needed; holding chemical DVT prophylaxis w/ heparin SQ if PLT < 50 ID: pneumonia d/t pseudomonas, MSSA, on vanc/cipro; to follow-up BCx 05/17 E: no acute issues P: no acute issues S: will likely transition to philosophy of care to comfort-focused care on 05/25 Quality Stroke Does the patient have a stroke diagnosis?: No VTE Prior VTE?: No VTE Risk Level:: Medical - moderate - high VTE Device Contraindication: N/A - Device Ordered VTE Drug Contraindication: Treatment Not Tolerated
[2024-05-24] MEDS: Albuterol/Iprat 2.5/0.5MG 3 ML AMPUL.NEB INHALE ×4 (08:27→19:07)
[2024-05-24] MEDS: Ciprofloxacin Lactate/D5W 400 MG/200 ML PIGGYBACK 200 MG IV ×2 (08:31→20:08)
[2024-05-24] MEDS: propofoL 1,000 MG/100 ML VIAL 18.45 MG IVCONT ×4 (08:34→23:12)
[2024-05-24] MEDS: Norepinephrine Bitartrate/D5W 8 MG/250 ML PLAST..BAG 12.68 MG IVCONT ×2 (08:59→22:07)
[2024-05-24] MEDS: Sulfameth/Trimet 800/160/20 ML 20 ML ORAL.SUSP PO ×2 (09:04→20:07)
[2024-05-24] MEDS: Morphine Sulfate 2 MG/ML CARTRIDGE IVPUSH (09:39)
[2024-05-24] MEDS: Albuterol Sulfate 7.5 MG, Albuterol/Iprat 2.5/0.5MG 3 ML 3 ML INHALE (10:26)
[2024-05-24 12:06] LABS: Glucose, Whole Blood 119 mg/dL (60-115)
[2024-05-24 18:32] LABS: Glucose, Whole Blood 137 mg/dL (60-115)
[2024-05-24 18:39] LABS: Vancomycin Random 16.8 mcg/mL (15-20)
--- NOTE | 2024-05-24 18:49 | HE.PHANOTE ---
re [facility] Patients level came back this morning at 16.8. Patient has been therapeutic without receiving doses for 4 days now, last dose give on 05/20/2024. Will continue to hold dose and get another level 05/25 @1800.
--- NOTE | 2024-05-24 19:06 | PC.NURSE ---
Assumed care at 0700. Pt?s WOB increased as vent compliance decreased, therefore pt switched to ACPC at approx 1000 to good effect. Pt had decreased volumes, RT at bedside to change vent settings; see vent assessment for details. Propofol drip continues per MAY; RASS -4 for vent synchrony. Pt tolerating TF at goal rate. Pt repositioned q2hrs. NEDS contacted at approx 1200. Ref number is [id number]. Pt is a rule-out for organ donation, but tissue donation may be possible.
[2024-05-24 23:46] LABS: Glucose, Whole Blood 117 mg/dL (60-115)
[2024-05-25] VITALS (34 sets, daily range): BP systolic 104–159; BP diastolic 49–74; PULSE 69–80; RESP 13–32; TEMP 34.2–37.7; O2SAT 91–99; BMI 33.4
--- NOTE | 2024-05-25 01:25 | PC.NURSE ---
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
[2024-05-25] MEDS: propofoL 1,000 MG/100 ML VIAL 18.45 MG IVCONT ×5 (03:40→22:20)
[2024-05-25 04:56] LABS: VBG Base Excess 1.1 mmol/L; VBG HCO3 26 mmol/L (22-26); VBG pCO2 42 mmHg; VBG pH 7.39 (7.32-7.43); VBG pO2 46 mmHg
[2024-05-25 05:13] LABS: Venous Blood Gas Refer to POC result
[2024-05-25 05:30] LABS: MANUAL DIFF FLAG NO
[2024-05-25 05:33] LABS: Basophils Percent Auto 0.2 % (0-2); Eosinophils Absolute Auto 0.1 X10*3/uL (0.0-0.4); Eosinophils Percent Auto 0.4 % (0-4); Hematocrit 25.6 % (37.0-47.0); Hemoglobin 8.6 g/dl (12.0-16.0); Imm Gran Abs Auto 0.24 X10*3/uL (0.00-0.03); Imm Gran Pct Auto 1.7 % (0.0-0.4); Lymphocytes Absolute Auto 0.9 X10*3/uL (1.2-4.9); Lymphocytes Percent Auto 6.1 % (20-40); Mean Corpuscular HGB Conc 33.6 g/dl (31.0-35.0); Mean Corpuscular Hemoglobin 28.4 pg (27.0-33.0); Mean Corpuscular Volume 84.5 fL (80.0-98.0); Monocytes Absolute Auto 1.3 X10*3/uL (0.1-1.2); Monocytes Percent Auto 9.2 % (2-11); Neutrophils Absolute Auto 11.5 x10*3/uL (2.0-8.3); Neutrophils Percent Auto 82.4 % (45-73); Red Blood Count 3.03 X10*6/uL (4.20-5.50); White Blood Count 13.9 X10*3/uL (4.8-10.8)
[2024-05-25 05:34] LABS: Platelet Count 27 X10*3/uL (160-400)
[2024-05-25] MEDS: Pantoprazole Sodium 40 MG/10 ML VIAL IVPUSH (05:37)
[2024-05-25 05:49] LABS: Albumin Level 2.9 g/dL (3.5-5.0); Anion Gap 17 (12-20); Blood Urea Nitrogen 77 mg/dL (9-16); Calcium 8.9 mg/dL (8.4-10.2); Carbon Dioxide 22 mmol/L (22-29); Chloride 95 mmol/L (96-108); Creatinine Clr Calc Pharmacy 16.6; Estimated Glomerular Filt Rate 18; Glucose Random 98 mg/dL (60-115); Magnesium 1.5 mg/dL (1.6-2.6); Potassium 5.4 mmol/L (3.3-5.1); Sodium 129 mmol/L (135-145)
[2024-05-25] MEDS: Magnesium Sulfate/H2O 2 GM/50 ML PIGGYBACK IV (06:21)
[2024-05-25] MEDS: Albumin Human 25 % 50 ML 100 ML IV ×2 (08:11→09:00)
[2024-05-25] MEDS: 0.9 % Sodium Chloride Flush 3 ML SYRINGE IVFLUSH ×2 (08:14→14:41)
[2024-05-25] MEDS: Sulfameth/Trimet 800/160/20 ML 20 ML ORAL.SUSP PO ×2 (08:14→20:49)
[2024-05-25] MEDS: Chlorhexidine Gluc Oral Rinse 15 ML MOUTHWASH BUCCAL ×3 (08:14→20:49)
[2024-05-25] MEDS: Ciprofloxacin Lactate/D5W 400 MG/200 ML PIGGYBACK 200 MG IV ×2 (08:15→20:49)
--- NOTE | 2024-05-25 10:33 | MHC.CLN ---
F/U PT REMAINS INTUBATED AND SEDATED DISCUSSED AT ROUNDS WITH MD RECEIVING PROMOTE AT MAX GOAL RATE 50ML/HR WITH 120ML FREE WATER FLUSHES Q 8 HRS PROVIDES 1200KCALS (1687 KCALS WITH SEDATION; 35ML/KG), 75G PROTEIN (1.6G/KG), 1367ML TOTAL WATER FROM FORMULA AND FLUSHES (28ML/KG) TF CURRENTLY ON HOLD R/T HIGH RESIDUALS; RESTART WHEN ABLE CONTINUE TO MONITOR TOLERANCE AND LYTES FOLLOWING WITH TEAM
[2024-05-25 11:41] LABS: Glucose, Whole Blood 110 mg/dL (60-115)
--- NOTE | 2024-05-25 12:09 | PM.CCPN ---
Subjective Subjective Date of Service: 05/25/24 Interval History: 73-year-old lady with underlying 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 Hospital course significant for progressive respiratory failure requiring intubation in 05/19/2024, Pseudomonas bacteremia, further deterioration of renal function, now with development of hyperkalemia and ongoing pancytopenia. No events overnight. Critical Care Time (minutes): 60 Physical Exam Vital Signs: Vital Signs: Last Vital Signs Temp 99.5 F 05/25/24 11:00 Pulse 76 05/25/24 11:00 Resp 19 05/25/24 11:00 BP 129/60 05/25/24 11:00 Pulse Ox 98 05/25/24 12:00 O2 Del Method Mechanical Ventil ation 05/25/24 11:00 O2 Flow Rate 50 05/23/24 15:00 FiO2 70 05/25/24 12:00 Oxygen Flow Rate 2 05/18/24 11:16 BMI result Body Mass Index 33.4 Const: General: no acute distress and other ( Sedated on ventilatory support) Eyes: Sclerae: sclerae normal Neck: Neck: Yes no lymphadenopathy, Yes trachea midline and Yes supple Resp: Auscultation: crackles ( bilateral) Cardio: Rate: regular rate Rhythm: regular rhythm Heart sounds: no gallops, no murmurs and no rubs GI: Inspection: Yes distended Palpation (GI): Soft to palpation and Other GI palpation findings present ( Nontender) Auscultation: normal bowel sounds Extrem: General: No clubbing, No cyanosis and Yes edema ( 1+ bilateral) Objective Data Labs 05/25/24 04:50 05/25/24 04:50 Labs: Laboratory Results - last 24 hr 05/24/24 05/24/24 05/24/24 18:11 18:29 23:42 WBC RBC Hgb Hct MCV MCH MCHC RDW Plt Count MPV Immature Gran % (Auto) Neut % (Auto) Lymph % (Auto) [place] % (Auto) Eos % (Auto) Baso % (Auto) Lymph # (Auto) [place] # (Auto) Eos # (Auto) Baso # (Auto) Abs Immat Gran (auto) Absolute Neuts (auto) Absolute Nucleated RBC Nucleated RBC % (auto) VBG pH VBG pCO2 VBG pO2 VBG HCO3 VBG O2 Saturation VBG Base Excess Sodium Potassium Chloride Carbon Dioxide Anion Gap BUN Creatinine Estim Creat Clear Calc Estimated GFR POC Glucose 137 H 117 H Random Glucose Calcium Phosphorus Magnesium Albumin Random Vancomycin 16.8 05/25/24 05/25/24 05/25/24 04:50 04:51 11:28 WBC 13.9 H RBC 3.03 L D Hgb 8.6 L D Hct 25.6 L D MCV 84.5 MCH 28.4 MCHC 33.6 RDW 17.0 H Plt Count 27 L MPV Not Reportable Immature Gran % (Auto) 1.7 H Neut % (Auto) 82.4 H Lymph % (Auto) 6.1 L [place] % (Auto) 9.2 Eos % (Auto) 0.4 Baso % (Auto) 0.2 Lymph # (Auto) 0.9 L [place] # (Auto) 1.3 H Eos # (Auto) 0.1 Baso # (Auto) 0.0 Abs Immat Gran (auto) 0.24 H Absolute Neuts (auto) 11.5 H Absolute Nucleated RBC 0.000 Nucleated RBC % (auto) 0.0 VBG pH 7.39 VBG pCO2 42 VBG pO2 46 VBG HCO3 26 VBG O2 Saturation 77.0 VBG Base Excess 1.1 Sodium 129 L Potassium 5.4 H Chloride 95 L Carbon Dioxide 22 Anion Gap 17 BUN 77 H Creatinine 2.61 H Estim Creat Clear Calc 16.6 Estimated GFR 18 POC Glucose 110 Random Glucose 98 Calcium 8.9 Phosphorus 4.0 Magnesium 1.5 L Albumin 2.9 L Random Vancomycin Microbiology Microbiology Results: Microbiology 05/19/24 07:45 Blood - Venous Blood Culture - Final No growth after 5 days. 05/19/24 05:53 Blood - Venous Blood Culture - Final No growth after 5 days. 05/18/24 13:32 Blood - Venous Blood Culture - Final Pseudomonas aeruginosa 05/18/24 12:07 Blood - Venous Blood Culture - Final Pseudomonas aeruginosa 05/19/24 01:10 Sputum - Suctioned Gram Stain - Final 05/19/24 01:10 Sputum - Suctioned Sputum Culture - Final Pseudomonas aeruginosa Staphylococcus aureus Progress Note: A&P Assessment and plan (1) Multi-organ failure with heart failure: Status: Acute (2) DON (acute kidney injury): Status: Acute (3) Small cell lung cancer in adult: Status: Acute (4) COPD (chronic obstructive pulmonary disease): Status: Acute (5) Acute and chronic respiratory failure: Status: Acute (6) Other cirrhosis of liver: Status: Acute (7) Bacteremia due to Pseudomonas: Status: Acute (8) Pseudomonas pneumonia: Status: Acute (9) Staphylococcal pneumonia: Status: Acute Plan Assessment: 73-year-old lady with underlying small-cell lung cancer on chemotherapy, CKD, cirrhosis, heart failure admitted with encephalopathy , pneumonia, and acute on chronic hypoxic respiratory failure requiring ventilatory support, now complicated by multiorgan failure Plan: Neuro: subacute encephalopathy likely septic in nature. Cardiac: No acute issues. Underlying chronic diastolic dysfunction. Pulmonary: Acute on chronic hypoxic respiratory failure requiring ventilatory support likely as a combination pulmonary edema and pneumonia with underlying supplemental oxygen 2 L dependent COPD. Continue ventilatory support. Renal: Underlying chronic renal disease, now with worsening urine output and increasing hyperkalemia, may require hemodialysis. Non oliguric. Continue to monitor renal indices and urine output. Endo: No acute issues. GI: No acute issues. Underlying history of non alcoholic cirrhosis. ID: Pseudomonas bacteremia and Pseudomonas/ staphylococcal pneumonia. Continue ciprofloxacin and Bactrim. Heme/Onc: pancytopenia, likely small-cell lung cancer /chemotherapy related. Psych: No acute issues. Miscellaneous: overall poor prognosis, discussions of goals of care are ongoing with the family. Prophylaxis: Pneumatic compression, PPI Diet: tube feeds Critical care time spent: 60 minutes Quality Stroke Does the patient have a stroke diagnosis?: No VTE Prior VTE?: No VTE Risk Level:: Medical - moderate - high VTE Device Contraindication: N/A - Device Ordered VTE Drug Contraindication: Treatment Not Tolerated
--- NOTE | 2024-05-25 13:29 | MHC.CM.PN ---
Pt intubated with FiO2 at 70%. Multisystem organ failure: family is going to opt for PERSONAL SERVICE WORKERS - no definite date/time of status change. CM to follow.
[2024-05-25] MEDS: Norepinephrine Bitartrate/D5W 8 MG/250 ML PLAST..BAG 12.68 MG IVCONT (17:08)
[2024-05-25 17:33] LABS: Glucose, Whole Blood 92 mg/dL (60-115)
--- NOTE | 2024-05-25 19:25 | PC.NURSE ---
Neuro: sedated on propofol, see MAR for details Cardiac:SR, Levophed continues as per MAR Resp: ACPC tolerating well, see vent assessment GI/: [place] in place patent and draining Endocrine:POC covered with Lispro sliding scale as ordered, see MAR ID continues on Cipro and Bactrim, Vanco D/C? Integumentary/Musculoskeletal: Anasarca, pitting edema noted, small skin tears to under breast area and groin, DTI to Sacrum and Coccyx, repositioned Q2 hours, barrier cream used, bruising throughout. Psychosocial (family etc.): Family considering TELLER MANAGER.
[2024-05-25 20:18] LABS: Hematocrit 22.4 % (37.0-47.0); Hemoglobin 7.7 g/dl (12.0-16.0); Mean Corpuscular HGB Conc 34.4 g/dl (31.0-35.0); Mean Corpuscular Hemoglobin 28.7 pg (27.0-33.0); Mean Corpuscular Volume 83.6 fL (80.0-98.0); Red Blood Count 2.68 X10*6/uL (4.20-5.50); Red Cell Distribution Width 16.6 % (11.0-16.0)
[2024-05-25 20:23] LABS: Alanine Aminotransferase 19 U/L (0-31); Albumin Level 2.8 g/dL (3.5-5.0); Alkaline Phosphatase 204 U/L (39-117); Anion Gap 18 (12-20); Aspartate Amino Transferase 44 U/L (5-31); Bilirubin Total 3.2 mg/dL (0.0-1.0); Blood Urea Nitrogen 75 mg/dL (9-16); Calcium 8.3 mg/dL (8.4-10.2); Carbon Dioxide 20 mmol/L (22-29); Chloride 95 mmol/L (96-108); Creatinine Clr Calc Pharmacy 16.9; Estimated Glomerular Filt Rate 18; Glucose Random 83 mg/dL (60-115); Phosphorus 5.1 mg/dL (2.7-4.5); Potassium 5.8 mmol/L (3.3-5.1); Sodium 127 mmol/L (135-145); Total Protein 4.8 g/dL (6.5-8.0)
[2024-05-25 20:31] LABS: Platelet Count 25 X10*3/uL (160-400)
[2024-05-25 20:33] LABS: PLT ABN DIST 1
[2024-05-25] MEDS: Sodium Zirconium Cyclosilicate 10 GM POWD.PACK PO (20:49)
[2024-05-25] MEDS: Albumin Human 25 % 100 ML IV (20:50)
[2024-05-26] VITALS (42 sets, daily range): BP systolic 94–152; BP diastolic 47–73; PULSE 67–79; RESP 20–28; TEMP 34.9–36.8; O2SAT 89–100; BMI 32.0
[2024-05-26 00:13] LABS: Glucose, Whole Blood 85 mg/dL (60-115)
[2024-05-26] MEDS: 0.9 % Sodium Chloride Flush 3 ML SYRINGE IVFLUSH ×3 (00:58→13:54)
[2024-05-26] MEDS: Albumin Human 25 % 100 ML IV ×4 (02:04→20:53)
[2024-05-26] MEDS: propofoL 1,000 MG/100 ML VIAL 18.45 MG IVCONT ×5 (02:04→21:30)
[2024-05-26 05:41] LABS: VBG Base Excess 0.4 mmol/L; VBG HCO3 24 mmol/L (22-26); VBG pCO2 36 mmHg; VBG pH 7.42 (7.32-7.43); VBG pO2 44 mmHg
[2024-05-26 05:54] LABS: Eosinophils Percent Auto 0.3 % (0-4); PLT CLUMP 1; SCAN SMEAR FLAG 1
[2024-05-26 05:56] LABS: Basophils Percent Auto 0.3 % (0-2); Imm Gran Abs Auto 0.11 X10*3/uL (0.00-0.03); Imm Gran Pct Auto 1.6 % (0.0-0.4); Lymphocytes Absolute Auto 0.6 X10*3/uL (1.2-4.9); Lymphocytes Percent Auto 7.9 % (20-40); MANUAL DIFF FLAG SCAN; Mean Corpuscular Hemoglobin 27.9 pg (27.0-33.0); Mean Corpuscular Volume 84.5 fL (80.0-98.0); Monocytes Absolute Auto 0.5 X10*3/uL (0.1-1.2); Monocytes Percent Auto 7.3 % (2-11); Neutrophils Absolute Auto 5.9 x10*3/uL (2.0-8.3); Neutrophils Percent Auto 82.6 % (45-73); Red Blood Count 2.26 X10*6/uL (4.20-5.50); Red Cell Distribution Width 16.4 % (11.0-16.0)
[2024-05-26 06:04] LABS: White Blood Count 7.1 X10*3/uL (4.8-10.8)
[2024-05-26 06:05] LABS: Platelet Count 20 X10*3/uL (160-400)
[2024-05-26 06:06] LABS: Venous Blood Gas Refer to POC result
[2024-05-26 06:06] LABS: Hematocrit 19.1 % (37.0-47.0); Hemoglobin 6.3 g/dl (12.0-16.0)
[2024-05-26 06:18] LABS: Alanine Aminotransferase 12 U/L (0-31); Anion Gap 17 (12-20); Aspartate Amino Transferase 45 U/L (5-31); Bilirubin Total 3.1 mg/dL (0.0-1.0); Blood Urea Nitrogen 75 mg/dL (9-16); Calcium 8.3 mg/dL (8.4-10.2); Carbon Dioxide 21 mmol/L (22-29); Chloride 94 mmol/L (96-108); Creatinine Clr Calc Pharmacy 17.9; Estimated Glomerular Filt Rate 19; Glucose Random 81 mg/dL (60-115); Magnesium 1.9 mg/dL (1.6-2.6); Phosphorus 5.1 mg/dL (2.7-4.5); Sodium 127 mmol/L (135-145)
[2024-05-26 06:22] LABS: Alkaline Phosphatase 163 U/L (39-117)
[2024-05-26 06:32] LABS: SLIDE REVIEW VERIFIED
[2024-05-26] MEDS: Pantoprazole Sodium 40 MG/10 ML VIAL IVPUSH (06:33)
[2024-05-26] MEDS: Chlorhexidine Gluc Oral Rinse 15 ML MOUTHWASH BUCCAL ×3 (08:02→20:53)
[2024-05-26] MEDS: Sulfameth/Trimet 800/160/20 ML 20 ML ORAL.SUSP PO ×2 (08:02→20:53)
--- NOTE | 2024-05-26 09:44 | PM.CCPN ---
Subjective Subjective Date of Service: 05/26/24 Interval History: 73-year-old lady with underlying 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 Hospital course significant for progressive respiratory failure requiring intubation in 05/19/2024, Pseudomonas bacteremia, further deterioration of renal function, now with development of hyperkalemia and ongoing pancytopenia. No events overnight. Ventilator support requirements are improving. Critical Care Time (minutes): 45 Physical Exam Vital Signs: Vital Signs: Last Vital Signs Temp 97.3 F 05/26/24 09:00 Pulse 78 05/26/24 09:00 Resp 25 H 05/26/24 09:00 BP 127/64 05/26/24 09:00 Pulse Ox 94 05/26/24 09:00 O2 Del Method Mechanical Ventil ation 05/26/24 09:00 O2 Flow Rate 50 05/23/24 15:00 FiO2 40 05/26/24 09:00 Oxygen Flow Rate 2 05/18/24 11:16 BMI result Body Mass Index 32.0 Const: General: no acute distress and other (Sedated on ventilatory support) Eyes: Sclerae: sclerae normal EOM: EOMs intact bilaterally Neck: Neck: Yes no lymphadenopathy, Yes trachea midline and Yes supple Resp: Auscultation: crackles (Bilateral) Cardio: Rate: regular rate Rhythm: regular rhythm Heart sounds: no gallops, no murmurs and no rubs GI: Inspection: Yes distended Palpation (GI): Soft to palpation and Other GI palpation findings present ( Nontender) Auscultation: normal bowel sounds Extrem: General: No clubbing, No cyanosis and Yes edema (Trace bilateral) Objective Data Labs 05/26/24 05:33 05/26/24 05:33 Labs: Laboratory Results - last 24 hr 05/24/24 05/25/24 05/25/24 06:43 11:28 17:29 WBC RBC Hgb Hct MCV MCH MCHC RDW Plt Count MPV Immature Gran % (Auto) Neut % (Auto) Lymph % (Auto) [place] % (Auto) Eos % (Auto) Baso % (Auto) Lymph # (Auto) [place] # (Auto) Eos # (Auto) Baso # (Auto) Abs Immat Gran (auto) Absolute Neuts (auto) Absolute Nucleated RBC Nucleated RBC % (auto) Smear Tech's Comments VBG pH VBG pCO2 VBG pO2 VBG HCO3 VBG O2 Saturation VBG Base Excess Sodium Potassium Chloride Carbon Dioxide Anion Gap BUN Creatinine Estim Creat Clear Calc Estimated GFR POC Glucose 110 92 Random Glucose Calcium Phosphorus Magnesium Total Bilirubin AST ALT Alkaline Phosphatase Total Protein Albumin Blood Type A Positive Antibody Screen NEGATIVE Crossmatch See Detail 05/25/24 05/26/24 05/26/24 19:56 00:08 05:33 WBC 13.0 H 7.1 RBC 2.68 L 2.26 L Hgb 7.7 L 6.3 L* Hct 22.4 L 19.1 L* MCV 83.6 84.5 MCH 28.7 27.9 MCHC 34.4 33.0 RDW 16.6 H 16.4 H Plt Count 25 L 20 L* MPV Not Reportable Not Reportable Immature Gran % (Auto) 1.6 H Neut % (Auto) 82.6 H Lymph % (Auto) 7.9 L [place] % (Auto) 7.3 Eos % (Auto) 0.3 Baso % (Auto) 0.3 Lymph # (Auto) 0.6 L [place] # (Auto) 0.5 Eos # (Auto) 0.0 Baso # (Auto) 0.0 Abs Immat Gran (auto) 0.11 H Absolute Neuts (auto) 5.9 Absolute Nucleated RBC 0.000 0.000 Nucleated RBC % (auto) 0.0 0.0 Smear Tech's Comments VERIFIED VBG pH VBG pCO2 VBG pO2 VBG HCO3 VBG O2 Saturation VBG Base Excess Sodium 127 L 127 L Potassium 5.8 H 5.0 Chloride 95 L 94 L Carbon Dioxide 20 L 21 L Anion Gap 18 17 BUN 75 H 75 H Creatinine 2.55 H 2.42 H Estim Creat Clear Calc 16.9 17.9 Estimated GFR 18 19 POC Glucose 85 Random Glucose 83 81 Calcium 8.3 L D 8.3 L Phosphorus 5.1 H 5.1 H Magnesium 2.0 1.9 Total Bilirubin 3.2 H 3.1 H AST 44 H 45 H ALT 19 12 Alkaline Phosphatase 204 H 163 H Total Protein 4.8 L 5.0 L Albumin 2.8 L 3.0 L Blood Type Antibody Screen Crossmatch 05/26/24 05:37 WBC RBC Hgb Hct MCV MCH MCHC RDW Plt Count MPV Immature Gran % (Auto) Neut % (Auto) Lymph % (Auto) [place] % (Auto) Eos % (Auto) Baso % (Auto) Lymph # (Auto) [place] # (Auto) Eos # (Auto) Baso # (Auto) Abs Immat Gran (auto) Absolute Neuts (auto) Absolute Nucleated RBC Nucleated RBC % (auto) Smear Tech's Comments VBG pH 7.42 VBG pCO2 36 VBG pO2 44 VBG HCO3 24 VBG O2 Saturation TNP VBG Base Excess 0.4 Sodium Potassium Chloride Carbon Dioxide Anion Gap BUN Creatinine Estim Creat Clear Calc Estimated GFR POC Glucose Random Glucose Calcium Phosphorus Magnesium Total Bilirubin AST ALT Alkaline Phosphatase Total Protein Albumin Blood Type Antibody Screen Crossmatch Microbiology Microbiology Results: Microbiology 05/19/24 07:45 Blood - Venous Blood Culture - Final No growth after 5 days. 05/19/24 05:53 Blood - Venous Blood Culture - Final No growth after 5 days. 05/18/24 13:32 Blood - Venous Blood Culture - Final Pseudomonas aeruginosa 05/18/24 12:07 Blood - Venous Blood Culture - Final Pseudomonas aeruginosa 05/19/24 01:10 Sputum - Suctioned Gram Stain - Final 05/19/24 01:10 Sputum - Suctioned Sputum Culture - Final Pseudomonas aeruginosa Staphylococcus aureus Progress Note: A&P Assessment and plan (1) Multi-organ failure with heart failure: Status: Acute (2) Other cirrhosis of liver: Status: Acute (3) DON (acute kidney injury): Status: Acute (4) Small cell lung cancer in adult: Status: Acute (5) Bacteremia due to Pseudomonas: Status: Acute (6) COPD (chronic obstructive pulmonary disease): Status: Acute (7) Pseudomonas pneumonia: Status: Acute (8) Staphylococcal pneumonia: Status: Acute (9) Acute and chronic respiratory failure: Status: Acute Plan Assessment: 73-year-old lady with underlying small-cell lung cancer on chemotherapy, CKD, cirrhosis, heart failure admitted with encephalopathy , pneumonia, and acute on chronic hypoxic respiratory failure requiring ventilatory support, now complicated by multiorgan failure Plan: Neuro: subacute encephalopathy likely septic in nature. Cardiac: No acute issues. Underlying chronic diastolic dysfunction. Pulmonary: Acute on chronic hypoxic respiratory failure requiring ventilatory support likely as a combination pulmonary edema and pneumonia with underlying supplemental oxygen 2 L dependent COPD. Continue to titrate off ventilatory support as tolerated. Renal: Underlying chronic renal disease, now with worsening urine output and increasing hyperkalemia, may require hemodialysis. Non oliguric. Continue to monitor renal indices and urine output. Endo: No acute issues. GI: No acute issues. Underlying history of non alcoholic cirrhosis. ID: Pseudomonas bacteremia and Pseudomonas/ staphylococcal pneumonia. Continue ciprofloxacin and Bactrim. Heme/Onc: pancytopenia, likely small-cell lung cancer /chemotherapy related. Psych: No acute issues. Miscellaneous: overall poor prognosis, discussions of goals of care are ongoing with the family. Prophylaxis: Pneumatic compression, PPI Diet: tube feeds Critical care time spent: 60 minutes Quality Stroke Does the patient have a stroke diagnosis?: No VTE Prior VTE?: No VTE Risk Level:: Medical - moderate - high VTE Device Contraindication: N/A - Device Ordered VTE Drug Contraindication: Treatment Not Tolerated
[2024-05-26] MEDS: Lactulose 20 GM/30 ML SOLUTION 30 GM PO (11:25)
[2024-05-26] MEDS: Ciprofloxacin Lactate/D5W 400 MG/200 ML PIGGYBACK 200 MG IV ×2 (11:25→22:29)
[2024-05-26] MEDS: vancomycin HCL Oral Solution 125 MG/5 ML SOLN.RECON PO (11:26)
[2024-05-26 11:31] LABS: Glucose, Whole Blood 76 mg/dL (60-115)
[2024-05-26 11:57] LABS: Glucose, Whole Blood 92 mg/dL (60-115)
--- NOTE | 2024-05-26 12:07 | P.CDIM_ITS ---
PROVIDER RESPONSE TEXT: To clarify, the appropriate diagnosis supported by the clinical indicators: Diastolic: Acute on chronic QUERY TEXT: PHYSICIAN'S DOCUMENTATION REQUEST Date of Query: 05/26/2024 11:45 AM EDT Patient Name: Anna Crawford Admit Date: 05/18/2024 Dear Pro Alicea MD, A review of the medical record indicates additional documentation may be needed. Please review below and update the documentation accordingly. Clinical Indicators: documentation states underlying chronic diastolic dysfunction Please provide further specificity regarding the most likely type and acuity of CHF you are evaluatin g, treating, or monitoring. Systolic Please specify if Acute, Chronic, or Acute on chronic, or Unable to determine Diastolic Please specify if Acute, Chronic, or Acute on chronic, or Unable to determine Combined Systolic/Diastolic Please specify if Acute, Chronic, or Acute on chronic, or Unable to determine Other (explain) Clinically unable to determine (explain) Thank you, Sadia An RN Use of terms such as suspected, likely, concern for, or probable (associated with a specific diagnosi s that is being evaluated, monitored, or treated as if it exists) are acceptable and can be coded in the inpatient se tting, when documented at the time of discharge. Please use your independent medical judgment in providing your response. THIS QUERY IS PART OF THE PERMANENT MEDICAL RECORD
[2024-05-26 18:00] LABS: Glucose, Whole Blood 74 mg/dL (60-115)
[2024-05-26] MEDS: Dextrose 50 % 25 GM/50 ML SYRINGE IVPUSH (19:02)
[2024-05-26 19:38] LABS: Glucose, Whole Blood 140 mg/dL (60-115)
[2024-05-26 19:54] LABS: MANUAL DIFF FLAG NO
[2024-05-26 20:08] LABS: Anion Gap 19 (12-20); Blood Urea Nitrogen 73 mg/dL (9-16); Calcium 8.5 mg/dL (8.4-10.2); Carbon Dioxide 17 mmol/L (22-29); Chloride 96 mmol/L (96-108); Creatinine Clr Calc Pharmacy 16.8; Estimated Glomerular Filt Rate 19; Glucose Random 119 mg/dL (60-115); Phosphorus 6.1 mg/dL (2.7-4.5); Potassium 4.8 mmol/L (3.3-5.1); Sodium 127 mmol/L (135-145)
[2024-05-26 20:21] LABS: Basophils Percent Auto 0.2 % (0-2); Hematocrit 21.3 % (37.0-47.0); Hemoglobin 7.3 g/dl (12.0-16.0); Imm Gran Abs Auto 0.08 X10*3/uL (0.00-0.03); Imm Gran Pct Auto 1.3 % (0.0-0.4); Lymphocytes Absolute Auto 0.3 X10*3/uL (1.2-4.9); Lymphocytes Percent Auto 5.2 % (20-40); Mean Corpuscular HGB Conc 34.3 g/dl (31.0-35.0); Mean Corpuscular Hemoglobin 28.3 pg (27.0-33.0); Mean Corpuscular Volume 82.6 fL (80.0-98.0); Mean Platelet Volume 11.7 fL (9.4-12.3); Monocytes Absolute Auto 0.4 X10*3/uL (0.1-1.2); Monocytes Percent Auto 5.7 % (2-11); Neutrophils Absolute Auto 5.4 x10*3/uL (2.0-8.3); Neutrophils Percent Auto 87.6 % (45-73); Red Blood Count 2.58 X10*6/uL (4.20-5.50); White Blood Count 6.1 X10*3/uL (4.8-10.8)
[2024-05-26 20:22] LABS: Platelet Count 24 X10*3/uL (160-400)
[2024-05-26] MEDS: Dextrose 10 % 1,000 ML 50 ML IVCONT (21:06)
--- NOTE | 2024-05-26 23:14 | PC.NURSE ---
Neuro: sedated on propofol, see MAR for details Cardiac:SR, Levophed titrated off as per MAR Resp: ACPC tolerating well, times of decreased volumes noted, see vent assessment GI/: Henderson in place patent and draining Endocrine:POC low, D50 given x1 this shift with noted effect increased to 140 ID continues on Cipro and Bactrim, Vanco PO started due to Hx of CDiff? Integumentary/Musculoskeletal: Anasarca, pitting edema, small skin tears to under breast area and groin, DTI to Sacrum and Coccyx, 2 shear friction tears noted, repositioned Q2 hours, barrier cream used, bruising throughout.
[2024-05-27] VITALS (41 sets, daily range): BP systolic 87–131; BP diastolic 44–78; PULSE 68–113; RESP 20–37; TEMP 34.9–37.3; O2SAT 29–96; BMI 31.8
[2024-05-27 00:17] LABS: Glucose, Whole Blood 90 mg/dL (60-115)
[2024-05-27 01:18] LABS: MANUAL DIFF FLAG NO
[2024-05-27] MEDS: 0.9 % Sodium Chloride Flush 3 ML SYRINGE IVFLUSH ×4 (01:18→23:47)
[2024-05-27 01:20] LABS: Imm Gran Abs Auto 0.08 X10*3/uL (0.00-0.03); Imm Gran Pct Auto 1.7 % (0.0-0.4); Lymphocytes Absolute Auto 0.3 X10*3/uL (1.2-4.9); Lymphocytes Percent Auto 6.5 % (20-40); Mean Corpuscular HGB Conc 34.7 g/dl (31.0-35.0); Mean Corpuscular Hemoglobin 28.5 pg (27.0-33.0); Monocytes Absolute Auto 0.3 X10*3/uL (0.1-1.2); Monocytes Percent Auto 6.9 % (2-11); Neutrophils Absolute Auto 3.9 x10*3/uL (2.0-8.3); Neutrophils Percent Auto 84.9 % (45-73); Red Blood Count 2.39 X10*6/uL (4.20-5.50); Red Cell Distribution Width 16.9 % (11.0-16.0); White Blood Count 4.6 X10*3/uL (4.8-10.8)
[2024-05-27 01:21] LABS: Hemoglobin 6.8 g/dl (12.0-16.0)
[2024-05-27 01:22] LABS: Hematocrit 19.6 % (37.0-47.0); Platelet Count 20 X10*3/uL (160-400)
[2024-05-27 01:23] LABS: Venous Blood Gas Refer to POC result
[2024-05-27] MEDS: propofoL 1,000 MG/100 ML VIAL 18.45 MG IVCONT ×5 (01:23→22:12)
[2024-05-27 01:36] LABS: VBG Base Excess -2.7 mmol/L; VBG HCO3 21 mmol/L (22-26); VBG pCO2 33 mmHg; VBG pO2 51 mmHg
[2024-05-27] MEDS: Albumin Human 25 % 100 ML IV ×3 (02:47→13:49)
[2024-05-27 03:28] LABS: Legionella Ag Urine Not Detected (Not Detected)
[2024-05-27] MEDS: Albuterol Sulfate (0.083%) 2.5 MG/3 ML VIAL.NEB INHALE (04:05)
[2024-05-27] MEDS: Furosemide 40 MG/4 ML VIAL IVPUSH (04:36)
[2024-05-27 05:44] LABS: Venous Blood Gas Refer to POC result
[2024-05-27 06:02] LABS: Basophils Percent Auto 0.3 % (0-2); Eosinophils Percent Auto 0.1 % (0-4); Hemoglobin 8.3 g/dl (12.0-16.0); PLT CLUMP 1; SCAN SMEAR FLAG 1
[2024-05-27 06:03] LABS: VBG Base Excess -2.9 mmol/L; VBG HCO3 22 mmol/L (22-26); VBG pCO2 41 mmHg; VBG pH 7.34 (7.32-7.43); VBG pO2 70 mmHg
[2024-05-27 06:04] LABS: Hematocrit 23.9 % (37.0-47.0); Imm Gran Abs Auto 0.07 X10*3/uL (0.00-0.03); Lymphocytes Absolute Auto 0.5 X10*3/uL (1.2-4.9); Lymphocytes Percent Auto 6.4 % (20-40); MANUAL DIFF FLAG NO; Mean Corpuscular HGB Conc 34.7 g/dl (31.0-35.0); Mean Corpuscular Hemoglobin 28.6 pg (27.0-33.0); Mean Corpuscular Volume 82.4 fL (80.0-98.0); Mean Platelet Volume 10.3 fL (9.4-12.3); Monocytes Absolute Auto 0.5 X10*3/uL (0.1-1.2); Monocytes Percent Auto 6.5 % (2-11); Neutrophils Absolute Auto 6.1 x10*3/uL (2.0-8.3); Neutrophils Percent Auto 85.7 % (45-73); Platelet Count 29 X10*3/uL (160-400); Red Cell Distribution Width 16.5 % (11.0-16.0); White Blood Count 7.1 X10*3/uL (4.8-10.8)
[2024-05-27 06:11] LABS: Glucose, Whole Blood 97 mg/dL (60-115)
[2024-05-27] MEDS: Pantoprazole Sodium 40 MG/10 ML VIAL IVPUSH (06:16)
[2024-05-27 06:29] LABS: Albumin Level 3.7 g/dL (3.5-5.0); Anion Gap 19 (12-20); Blood Urea Nitrogen 72 mg/dL (9-16); Calcium 8.7 mg/dL (8.4-10.2); Carbon Dioxide 21 mmol/L (22-29); Chloride 93 mmol/L (96-108); Creatinine Clr Calc Pharmacy 17.1; Estimated Glomerular Filt Rate 19; Glucose Random 91 mg/dL (60-115); Phosphorus 6.8 mg/dL (2.7-4.5); Potassium 4.5 mmol/L (3.3-5.1); Sodium 128 mmol/L (135-145)
[2024-05-27] MEDS: Lactulose 20 GM/30 ML SOLUTION 30 GM PO (08:45)
[2024-05-27] MEDS: Sulfameth/Trimet 800/160/20 ML 20 ML ORAL.SUSP PO ×2 (08:45→20:07)
[2024-05-27] MEDS: Chlorhexidine Gluc Oral Rinse 15 ML MOUTHWASH BUCCAL ×3 (08:46→20:07)
[2024-05-27] MEDS: vancomycin HCL Oral Solution 125 MG/5 ML SOLN.RECON PO (08:46)
[2024-05-27] MEDS: Ciprofloxacin Lactate/D5W 400 MG/200 ML PIGGYBACK 200 MG IV ×2 (08:46→20:14)
--- NOTE | 2024-05-27 08:51 | PM.CCPN ---
Subjective Subjective Date of Service: 05/27/24 Interval History: 73-year-old lady with underlying 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 Hospital course significant for progressive respiratory failure requiring intubation in 05/19/2024, Pseudomonas bacteremia, further deterioration of renal function, now with development of hyperkalemia and ongoing pancytopenia. Overnight with significant in-line secretions requiring multiple lavages. Critical Care Time (minutes): 45 Physical Exam Vital Signs: Vital Signs: Last Vital Signs Temp 97.7 F 05/27/24 08:00 Pulse 75 05/27/24 08:00 Resp 28 H 05/27/24 08:00 BP 109/59 L 05/27/24 08:00 Pulse Ox 29 L 05/27/24 08:00 O2 Del Method Mechanical Ventil ation 05/27/24 08:00 O2 Flow Rate 50 05/23/24 15:00 FiO2 50 05/27/24 08:00 Oxygen Flow Rate 2 05/18/24 11:16 BMI result Body Mass Index 31.8 Const: General: no acute distress and other (Sedated on ventilatory support) Eyes: Sclerae: sclerae normal Neck: Neck: Yes no lymphadenopathy, Yes trachea midline and Yes supple Resp: Auscultation: crackles (Bilateral) Cardio: Rate: regular rate Rhythm: regular rhythm Heart sounds: no gallops, no murmurs and no rubs GI: Inspection: Yes distended Palpation (GI): Soft to palpation and Other GI palpation findings present ( Nontender) Auscultation: normal bowel sounds Extrem: General: No clubbing, No cyanosis and Yes edema (1+ bilateral) Objective Data Labs 05/27/24 05:42 05/27/24 05:42 Labs: Laboratory Results - last 24 hr 05/19/24 05/24/24 05/26/24 01:10 06:43 11:21 WBC RBC Hgb Hct MCV MCH MCHC RDW Plt Count MPV Immature Gran % (Auto) Neut % (Auto) Lymph % (Auto) [place] % (Auto) Eos % (Auto) Baso % (Auto) Lymph # (Auto) [place] # (Auto) Eos # (Auto) Baso # (Auto) Abs Immat Gran (auto) Absolute Neuts (auto) Absolute Nucleated RBC Nucleated RBC % (auto) VBG pH VBG pCO2 VBG pO2 VBG HCO3 VBG O2 Saturation VBG Base Excess Sodium Potassium Chloride Carbon Dioxide Anion Gap BUN Creatinine Estim Creat Clear Calc Estimated GFR POC Glucose 76 Random Glucose Calcium Phosphorus Magnesium Albumin Ur L.pneumophila Ag Not Detected Blood Type A Positive Antibody Screen NEGATIVE Crossmatch See Detail 05/26/24 05/26/24 05/26/24 11:53 17:56 19:34 WBC RBC Hgb Hct MCV MCH MCHC RDW Plt Count MPV Immature Gran % (Auto) Neut % (Auto) Lymph % (Auto) [place] % (Auto) Eos % (Auto) Baso % (Auto) Lymph # (Auto) [place] # (Auto) Eos # (Auto) Baso # (Auto) Abs Immat Gran (auto) Absolute Neuts (auto) Absolute Nucleated RBC Nucleated RBC % (auto) VBG pH VBG pCO2 VBG pO2 VBG HCO3 VBG O2 Saturation VBG Base Excess Sodium Potassium Chloride Carbon Dioxide Anion Gap BUN Creatinine Estim Creat Clear Calc Estimated GFR POC Glucose 92 74 140 H Random Glucose Calcium Phosphorus Magnesium Albumin Ur L.pneumophila Ag Blood Type Antibody Screen Crossmatch 05/26/24 05/27/24 05/27/24 19:44 00:12 01:11 WBC 6.1 RBC 2.58 L Hgb 7.3 L Hct 21.3 L MCV 82.6 MCH 28.3 MCHC 34.3 RDW 17.0 H Plt Count 24 L MPV 11.7 Immature Gran % (Auto) 1.3 H Neut % (Auto) 87.6 H Lymph % (Auto) 5.2 L [place] % (Auto) 5.7 Eos % (Auto) 0.0 Baso % (Auto) 0.2 Lymph # (Auto) 0.3 L [place] # (Auto) 0.4 Eos # (Auto) 0.0 Baso # (Auto) 0.0 Abs Immat Gran (auto) 0.08 H Absolute Neuts (auto) 5.4 Absolute Nucleated RBC 0.000 Nucleated RBC % (auto) 0.0 VBG pH 7.40 VBG pCO2 33 VBG pO2 51 VBG HCO3 21 L VBG O2 Saturation Not Reportable VBG Base Excess -2.7 Sodium 127 L Potassium 4.8 Chloride 96 Carbon Dioxide 17 L Anion Gap 19 BUN 73 H Creatinine 2.51 H Estim Creat Clear Calc 16.8 Estimated GFR 19 POC Glucose 90 Random Glucose 119 H Calcium 8.5 Phosphorus 6.1 H Magnesium 2.0 Albumin Ur L.pneumophila Ag Blood Type Antibody Screen Crossmatch 05/27/24 05/27/24 05/27/24 01:13 05:42 05:58 WBC 4.6 L 7.1 RBC 2.39 L 2.90 L D Hgb 6.8 L* 8.3 L D Hct 19.6 L* 23.9 L D MCV 82.0 82.4 MCH 28.5 28.6 MCHC 34.7 34.7 RDW 16.9 H 16.5 H Plt Count 20 L* 29 L D MPV Not Reportable 10.3 Immature Gran % (Auto) 1.7 H 1.0 H Neut % (Auto) 84.9 H 85.7 H Lymph % (Auto) 6.5 L 6.4 L [place] % (Auto) 6.9 6.5 Eos % (Auto) 0.0 0.1 Baso % (Auto) 0.0 0.3 Lymph # (Auto) 0.3 L 0.5 L [place] # (Auto) 0.3 0.5 Eos # (Auto) 0.0 0.0 Baso # (Auto) 0.0 0.0 Abs Immat Gran (auto) 0.08 H 0.07 H Absolute Neuts (auto) 3.9 6.1 Absolute Nucleated RBC 0.000 0.000 Nucleated RBC % (auto) 0.0 0.0 VBG pH VBG pCO2 VBG pO2 VBG HCO3 VBG O2 Saturation VBG Base Excess Sodium 128 L Potassium 4.5 Chloride 93 L Carbon Dioxide 21 L Anion Gap 19 BUN 72 H Creatinine 2.46 H Estim Creat Clear Calc 17.1 Estimated GFR 19 POC Glucose 97 Random Glucose 91 Calcium 8.7 Phosphorus 6.8 H Magnesium 2.0 Albumin 3.7 Ur L.pneumophila Ag Blood Type Antibody Screen Crossmatch 05/27/24 05:59 WBC RBC Hgb Hct MCV MCH MCHC RDW Plt Count MPV Immature Gran % (Auto) Neut % (Auto) Lymph % (Auto) [place] % (Auto) Eos % (Auto) Baso % (Auto) Lymph # (Auto) [place] # (Auto) Eos # (Auto) Baso # (Auto) Abs Immat Gran (auto) Absolute Neuts (auto) Absolute Nucleated RBC Nucleated RBC % (auto) VBG pH 7.34 VBG pCO2 41 VBG pO2 70 VBG HCO3 22 VBG O2 Saturation 95.0 VBG Base Excess -2.9 Sodium Potassium Chloride Carbon Dioxide Anion Gap BUN Creatinine Estim Creat Clear Calc Estimated GFR POC Glucose Random Glucose Calcium Phosphorus Magnesium Albumin Ur L.pneumophila Ag Blood Type Antibody Screen Crossmatch Microbiology Microbiology Results: Microbiology 05/19/24 07:45 Blood - Venous Blood Culture - Final No growth after 5 days. 05/19/24 05:53 Blood - Venous Blood Culture - Final No growth after 5 days. 05/18/24 13:32 Blood - Venous Blood Culture - Final Pseudomonas aeruginosa 05/18/24 12:07 Blood - Venous Blood Culture - Final Pseudomonas aeruginosa 05/19/24 01:10 Sputum - Suctioned Gram Stain - Final 05/19/24 01:10 Sputum - Suctioned Sputum Culture - Final Pseudomonas aeruginosa Staphylococcus aureus Progress Note: A&P Assessment and plan (1) Multi-organ failure with heart failure: Status: Acute (2) Other cirrhosis of liver: Status: Acute (3) DON (acute kidney injury): Status: Acute (4) Small cell lung cancer in adult: Status: Acute (5) Bacteremia due to Pseudomonas: Status: Acute (6) COPD (chronic obstructive pulmonary disease): Status: Acute (7) Acute and chronic respiratory failure: Status: Acute (8) Pseudomonas pneumonia: Status: Acute (9) Staphylococcal pneumonia: Status: Acute Plan Assessment: 73-year-old lady with underlying small-cell lung cancer on chemotherapy, CKD, cirrhosis, heart failure admitted with encephalopathy , pneumonia, and acute on chronic hypoxic respiratory failure requiring ventilatory support, now complicated by multiorgan failure Plan: Neuro: subacute encephalopathy likely septic in nature. Cardiac: No acute issues. Underlying chronic diastolic dysfunction. Pulmonary: Acute on chronic hypoxic respiratory failure requiring ventilatory support likely as a combination pulmonary edema and pneumonia with underlying supplemental oxygen 2 L dependent COPD. Continue to titrate off ventilatory support as tolerated. Renal: Underlying chronic renal disease, now with worsening urine output and increasing hyperkalemia, may require hemodialysis. Non oliguric. Continue to monitor renal indices and urine output. Endo: No acute issues. GI: No acute issues. Underlying history of non alcoholic cirrhosis. ID: Pseudomonas bacteremia and Pseudomonas/ staphylococcal pneumonia. Continue ciprofloxacin and Bactrim. Heme/Onc: pancytopenia, likely small-cell lung cancer /chemotherapy related. Transfuse to hemoglobin goal above 7. Psych: No acute issues. Miscellaneous: overall poor prognosis, discussions of goals of care are ongoing with the family. Prophylaxis: Pneumatic compression, PPI Diet: tube feeds Critical care time spent: 45 minutes Quality Stroke Does the patient have a stroke diagnosis?: No VTE Prior VTE?: No VTE Risk Level:: Medical - moderate - high VTE Device Contraindication: N/A - Device Ordered VTE Drug Contraindication: Treatment Not Tolerated
[2024-05-27] MEDS: Albuterol/Iprat 2.5/0.5MG 3 ML AMPUL.NEB INHALE ×3 (09:38→20:22)
--- NOTE | 2024-05-27 09:41 | P.CDIM_ITS ---
PROVIDER RESPONSE TEXT: To clarify, the appropriate diagnosis supported by the clinical indicators: Acute QUERY TEXT: PHYSICIAN'S DOCUMENTATION REQUEST Date of Query: 05/27/2024 09:23 AM EDT Patient Name: Anna Crawford Admit Date: 05/18/2024 Dear Pro Alicea MD, A review of the medical record indicates additional documentation may be needed. Please review below and update the documentation accordingly. Clinical Indicators: on ventilator support likely due to combination of pulmonary edema, pneumonia and COPD Clarify which of the following accurately represents the acuity of the Pulmonary edema. Possible options might include: Acute Acute on chronic Compensated Chronic stable condition Remission Other (explain) Clinically unable to determine (explain) Thank you, Sadia An RN Use of terms such as suspected, likely, concern for, or probable (associated with a specific diagnosi s that is being evaluated, monitored, or treated as if it exists) are acceptable and can be coded in the inpatient se tting, when documented at the time of discharge. Please use your independent medical judgment in providing your response. THIS QUERY IS PART OF THE PERMANENT MEDICAL RECORD
--- NOTE | 2024-05-27 09:41 | P.CDIM_ITS ---
PROVIDER RESPONSE TEXT: To clarify, the appropriate diagnosis supported by the clinical indicators: Acute renal failure (with type, appropriate) on Chronic Kidney Disease (CKD) QUERY TEXT: PHYSICIAN'S DOCUMENTATION REQUEST Date of Query: 05/27/2024 09:26 AM EDT Patient Name: Anna Crawford Admit Date: 05/18/2024 Dear Pro Alicea MD, A review of the medical record indicates additional documentation may be needed. Please review below and update the documentation accordingly. Clinical Indicators: PMH: CKD stage 4 further deterioration of renal function BUN 73/Creatinine 2.51 Est GFR 19 now with worsening urine output, non oliguric Please clarify which of the following accurately represents the patient's renal status: Acute renal failure Acute renal failure with suspected ATN Acute renal failure with other pathology (medullary, papillary, or cortical necrosis) Acute renal failure (with type, appropriate) on Chronic Kidney Disease (CKD) Acute kidney injury (non-traumatic) CKD stage 4 ESRD - CKD V now requiring permanent dialysis and/or transplant Other (explain) Clinically unable to determine (explain) Thank you, Sadia An RN Use of terms such as suspected, likely, concern for, or probable (associated with a specific diagnosi s that is being evaluated, monitored, or treated as if it exists) are acceptable and can be coded in the inpatient se tting, when documented at the time of discharge. Please use your independent medical judgment in providing your response. THIS QUERY IS PART OF THE PERMANENT MEDICAL RECORD
[2024-05-27 10:56] LABS: OBS Int Ctl Valid YES; OBS1 POSITIVE (NEGATIVE)
--- NOTE | 2024-05-27 11:10 | MHC.CLN ---
F/U PT REMAINS INTUBATED AND SEDATED DISCUSSED AT ROUNDS WITH MD BORJAS ON HOLD FOR 3 DAYS RECOMMEND NEPRO TF AT MAX GOAL RATE 25ML/HR WITH 240ML FREE WATER FLUSHES Q 8 HRS PROVIDES 1080KCALS (1567 KCALS WITH SEDATION; 32ML/KG), 49G PROTEIN (1.0G/KG), 1156ML TOTAL WATER FROM FORMULA AND FLUSHES (24ML/KG) MONITOR TOLERANCE AND LYTES
[2024-05-27 12:03] LABS: Glucose, Whole Blood 81 mg/dL (60-115)
--- NOTE | 2024-05-27 13:02 | MHC.CM.PN ---
Pt continues on vent support in the setting of metastatic small cell lung cancer. Completed 4 sessions of chemo: Family is having difficulty deciding on goals of care with MD updating family daily. Pt is a bedhold at [facility]. CM to follow
[2024-05-27 14:48] LABS: Glucose, Whole Blood 70 mg/dL (60-115)
[2024-05-27 17:28] LABS: Glucose, Whole Blood 83 mg/dL (60-115)
--- NOTE | 2024-05-27 17:28 | PC.NURSE ---
Addendum entered by Sumi Stapleton RN 05/27/24 17:34: P: Alteration in Gastrointestinal I: See nursing documentation and MD orders E: Tube feeds started at trickle, advancing Q4 towards goal. D10 water turned off per Dr Alicea Original Note: P: Alteration in Respiratory I: See nursing documentation and MD orders E: Patient on ACPC vent settings and tolerating well. Periods of desaturations with suctioning and turning. Large amount of inline secretions post bath. VAP bundle followed per protocol. No signs of respiratory distress noted. Propof drip at max goal for vent synchronicity
[2024-05-27 19:22] LABS: Hemoglobin 8.3 g/dl (12.0-16.0); Lymphocytes Percent Auto 5.4 % (20-40); PLT CLUMP 1; SCAN SMEAR FLAG 1
[2024-05-27 19:24] LABS: Basophils Percent Auto 0.3 % (0-2); Hematocrit 23.2 % (37.0-47.0); Imm Gran Abs Auto 0.11 X10*3/uL (0.00-0.03); Imm Gran Pct Auto 1.6 % (0.0-0.4); Lymphocytes Absolute Auto 0.4 X10*3/uL (1.2-4.9); MANUAL DIFF FLAG SCAN; Mean Corpuscular Hemoglobin 28.7 pg (27.0-33.0); Mean Corpuscular Volume 80.3 fL (80.0-98.0); Monocytes Absolute Auto 0.4 X10*3/uL (0.1-1.2); Monocytes Percent Auto 6.1 % (2-11); Neutrophils Absolute Auto 5.8 x10*3/uL (2.0-8.3); Neutrophils Percent Auto 86.6 % (45-73); Red Blood Count 2.89 X10*6/uL (4.20-5.50); Red Cell Distribution Width 16.3 % (11.0-16.0)
[2024-05-27 19:39] LABS: Albumin Level 3.7 g/dL (3.5-5.0); Anion Gap 20 (12-20); Blood Urea Nitrogen 73 mg/dL (9-16); Calcium 8.3 mg/dL (8.4-10.2); Carbon Dioxide 17 mmol/L (22-29); Chloride 93 mmol/L (96-108); Creatinine Clr Calc Pharmacy 16.7; Estimated Glomerular Filt Rate 19; Glucose Random 81 mg/dL (60-115); Magnesium 1.9 mg/dL (1.6-2.6); Phosphorus 6.3 mg/dL (2.7-4.5); Potassium 4.4 mmol/L (3.3-5.1); Sodium 126 mmol/L (135-145)
[2024-05-27 20:43] LABS: Mean Platelet Volume 12.8 fL (9.4-12.3); Platelet Count 27 X10*3/uL (160-400); SLIDE REVIEW VERIFIED
[2024-05-27 20:44] LABS: White Blood Count 6.7 X10*3/uL (4.8-10.8)
[2024-05-27 20:46] LABS: Mean Corpuscular HGB Conc 35.8 g/dl (31.0-35.0)
[2024-05-27 23:41] LABS: Glucose, Whole Blood 92 mg/dL (60-115)
[2024-05-28] VITALS (37 sets, daily range): BP systolic 89–139; BP diastolic 46–74; PULSE 79–109; RESP 22–35; TEMP 34.7–37.5; O2SAT 88–96; BMI 33.9
[2024-05-28] MEDS: propofoL 1,000 MG/100 ML VIAL 18.45 MG IVCONT ×5 (02:15→23:40)
[2024-05-28] MEDS: fentaNYL citrate/PF 100 MCG/2 ML VIAL 50 MCG IVPUSH ×2 (02:16→04:27)
[2024-05-28 05:25] LABS: VBG Base Excess -3.4 mmol/L; VBG HCO3 19 mmol/L (22-26); VBG pCO2 26 mmHg; VBG pH 7.47 (7.32-7.43); VBG pO2 50 mmHg
[2024-05-28] MEDS: Pantoprazole Sodium 40 MG/10 ML VIAL IVPUSH (05:41)
[2024-05-28 05:54] LABS: MANUAL DIFF FLAG NO
[2024-05-28 05:58] LABS: Basophils Percent Auto 0.3 % (0-2); Eosinophils Percent Auto 0.1 % (0-4); Hemoglobin 8.3 g/dl (12.0-16.0); Imm Gran Abs Auto 0.08 X10*3/uL (0.00-0.03); Lymphocytes Absolute Auto 0.3 X10*3/uL (1.2-4.9); Mean Corpuscular HGB Conc 36.1 g/dl (31.0-35.0); Mean Corpuscular Hemoglobin 28.8 pg (27.0-33.0); Mean Corpuscular Volume 79.9 fL (80.0-98.0); Mean Platelet Volume 11.9 fL (9.4-12.3); Monocytes Absolute Auto 0.4 X10*3/uL (0.1-1.2); Neutrophils Absolute Auto 6.9 x10*3/uL (2.0-8.3); Neutrophils Percent Auto 89.6 % (45-73); Platelet Count 28 X10*3/uL (160-400); Red Blood Count 2.88 X10*6/uL (4.20-5.50); Red Cell Distribution Width 16.5 % (11.0-16.0); White Blood Count 7.7 X10*3/uL (4.8-10.8)
--- NOTE | 2024-05-28 06:10 | PC.NURSE ---
Assumed care at 1900. Patient remains intubated/sedated. RASS -4 d/t vent dyssynchrony, propofol gtt running per MAY. SR with BBB on tele, HR 70s-80s. Patient with persistently high RR, provider aware. See vent assessment. Abdomen large and somewhat distended, semi-firm. TF infusing at goal, no s/s of TF intolerance. FMS in place and patent, draining liquid dark green stool. Henderson catheter remains in place, patent and draining clear yellow urine, UOP approx 15-60mL/hr. Patient is profoundly edematous with anasarca and weeping to all extremities. Skin tear to LUE wrapped with?xeroform and gauze, DTI to coccyx with maceration, triad applied and patient repositioned Q2HR. Interdry applied to abdominal folds where appropriate. Bed locked in lowest position, bed alarm on.?
[2024-05-28 06:14] LABS: Albumin Level 3.2 g/dL (3.5-5.0); Anion Gap 20 (12-20); Blood Urea Nitrogen 71 mg/dL (9-16); Carbon Dioxide 17 mmol/L (22-29); Chloride 93 mmol/L (96-108); Creatinine Clr Calc Pharmacy 18.4; Estimated Glomerular Filt Rate 20; Glucose Random 91 mg/dL (60-115); Magnesium 1.9 mg/dL (1.6-2.6); Phosphorus 6.1 mg/dL (2.7-4.5); Potassium 4.3 mmol/L (3.3-5.1); Sodium 126 mmol/L (135-145)
[2024-05-28 06:19] LABS: Venous Blood Gas Refer to POC result
[2024-05-28] MEDS: Albumin Human 25 % 100 ML IV ×2 (06:35→13:29)
[2024-05-28] MEDS: Albuterol/Iprat 2.5/0.5MG 3 ML AMPUL.NEB INHALE ×3 (07:43→19:43)
[2024-05-28] MEDS: Lactulose 20 GM/30 ML SOLUTION 30 GM PO (08:35)
[2024-05-28] MEDS: Chlorhexidine Gluc Oral Rinse 15 ML MOUTHWASH BUCCAL ×3 (08:36→19:33)
[2024-05-28] MEDS: vancomycin HCL Oral Solution 125 MG/5 ML SOLN.RECON PO (08:36)
[2024-05-28] MEDS: 0.9 % Sodium Chloride Flush 3 ML SYRINGE IVFLUSH ×3 (08:36→23:39)
[2024-05-28] MEDS: Ciprofloxacin Lactate/D5W 400 MG/200 ML PIGGYBACK 200 MG IV ×2 (08:36→19:33)
[2024-05-28] MEDS: Sulfameth/Trimet 800/160/20 ML 20 ML ORAL.SUSP PO ×2 (08:36→19:33)
--- NOTE | 2024-05-28 09:36 | PM.CCPN ---
Subjective Subjective Date of Service: 05/28/24 Interval History: 73-year-old lady with underlying 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 Hospital course significant for progressive respiratory failure requiring intubation in 05/19/2024, Pseudomonas bacteremia, further deterioration of renal function, now with development of hyperkalemia and ongoing pancytopenia. No events overnight. FiO2 requirements are slowly improving. Critical Care Time (minutes): 45 Physical Exam Vital Signs: Vital Signs: Last Vital Signs Temp 98.1 F 05/28/24 09:00 Pulse 83 05/28/24 09:00 Resp 28 H 05/28/24 09:00 BP 113/60 05/28/24 09:00 Pulse Ox 95 05/28/24 09:00 O2 Del Method Mechanical Ventil ation 05/28/24 09:00 O2 Flow Rate 50 05/23/24 15:00 FiO2 50 05/28/24 09:00 Oxygen Flow Rate 2 05/18/24 11:16 BMI result Body Mass Index 33.9 Const: General: no acute distress and other (Sedated on the vent) Nutritional Appearance: Edematous Eyes: Sclerae: sclerae normal EOM: EOMs intact bilaterally Neck: Neck: Yes no lymphadenopathy, Yes trachea midline and Yes supple Resp: Auscultation: crackles (Mild bilateral) Cardio: Rate: regular rate Rhythm: regular rhythm Heart sounds: no gallops, no murmurs and no rubs GI: Inspection: Yes distended Palpation (GI): Soft to palpation and Other GI palpation findings present ( Nontender) Auscultation: normal bowel sounds Extrem: General: No clubbing, No cyanosis and Yes edema (1+ bilateral) Objective Data Labs 05/28/24 05:16 05/28/24 05:16 Labs: Laboratory Results - last 24 hr 05/27/24 05/27/24 05/27/24 10:39 11:54 14:44 WBC RBC Hgb Hct MCV MCH MCHC RDW Plt Count MPV Immature Gran % (Auto) Neut % (Auto) Lymph % (Auto) [place] % (Auto) Eos % (Auto) Baso % (Auto) Lymph # (Auto) [place] # (Auto) Eos # (Auto) Baso # (Auto) Abs Immat Gran (auto) Absolute Neuts (auto) Absolute Nucleated RBC Nucleated RBC % (auto) Smear Tech's Comments VBG pH VBG pCO2 VBG pO2 VBG HCO3 VBG O2 Saturation VBG Base Excess Sodium Potassium Chloride Carbon Dioxide Anion Gap BUN Creatinine Estim Creat Clear Calc Estimated GFR POC Glucose 81 70 Random Glucose Calcium Phosphorus Magnesium Albumin Stool Occult Blood POSITIVE 05/27/24 05/27/24 05/27/24 17:24 19:12 23:36 WBC 6.7 RBC 2.89 L Hgb 8.3 L Hct 23.2 L MCV 80.3 MCH 28.7 MCHC 35.8 H RDW 16.3 H Plt Count 27 L MPV 12.8 H Immature Gran % (Auto) 1.6 H Neut % (Auto) 86.6 H Lymph % (Auto) 5.4 L [place] % (Auto) 6.1 Eos % (Auto) 0.0 Baso % (Auto) 0.3 Lymph # (Auto) 0.4 L [place] # (Auto) 0.4 Eos # (Auto) 0.0 Baso # (Auto) 0.0 Abs Immat Gran (auto) 0.11 H Absolute Neuts (auto) 5.8 Absolute Nucleated RBC 0.000 Nucleated RBC % (auto) 0.0 Smear Tech's Comments VERIFIED VBG pH VBG pCO2 VBG pO2 VBG HCO3 VBG O2 Saturation VBG Base Excess Sodium 126 L Potassium 4.4 Chloride 93 L Carbon Dioxide 17 L Anion Gap 20 BUN 73 H Creatinine 2.52 H Estim Creat Clear Calc 16.7 Estimated GFR 19 POC Glucose 83 92 Random Glucose 81 Calcium 8.3 L Phosphorus 6.3 H Magnesium 1.9 Albumin 3.7 Stool Occult Blood 05/28/24 05/28/24 05:16 05:21 WBC 7.7 RBC 2.88 L Hgb 8.3 L Hct 23.0 L MCV 79.9 L MCH 28.8 MCHC 36.1 H RDW 16.5 H Plt Count 28 L MPV 11.9 Immature Gran % (Auto) 1.0 H Neut % (Auto) 89.6 H Lymph % (Auto) 4.0 L [place] % (Auto) 5.0 Eos % (Auto) 0.1 Baso % (Auto) 0.3 Lymph # (Auto) 0.3 L [place] # (Auto) 0.4 Eos # (Auto) 0.0 Baso # (Auto) 0.0 Abs Immat Gran (auto) 0.08 H Absolute Neuts (auto) 6.9 Absolute Nucleated RBC 0.000 Nucleated RBC % (auto) 0.0 Smear Tech's Comments VBG pH 7.47 H VBG pCO2 26 VBG pO2 50 VBG HCO3 19 L VBG O2 Saturation 85.0 VBG Base Excess -3.4 Sodium 126 L Potassium 4.3 Chloride 93 L Carbon Dioxide 17 L Anion Gap 20 BUN 71 H Creatinine 2.36 H Estim Creat Clear Calc 18.4 Estimated GFR 20 POC Glucose Random Glucose 91 Calcium 8.0 L Phosphorus 6.1 H Magnesium 1.9 Albumin 3.2 L Stool Occult Blood Microbiology Microbiology Results: Microbiology 05/19/24 07:45 Blood - Venous Blood Culture - Final No growth after 5 days. 05/19/24 05:53 Blood - Venous Blood Culture - Final No growth after 5 days. 05/18/24 13:32 Blood - Venous Blood Culture - Final Pseudomonas aeruginosa 05/18/24 12:07 Blood - Venous Blood Culture - Final Pseudomonas aeruginosa 05/19/24 01:10 Sputum - Suctioned Gram Stain - Final 05/19/24 01:10 Sputum - Suctioned Sputum Culture - Final Pseudomonas aeruginosa Staphylococcus aureus Progress Note: A&P Assessment and plan (1) Multi-organ failure with heart failure: Status: Acute (2) Other cirrhosis of liver: Status: Acute (3) DON (acute kidney injury): Status: Acute (4) Small cell lung cancer in adult: Status: Acute (5) Bacteremia due to Pseudomonas: Status: Acute (6) COPD (chronic obstructive pulmonary disease): Status: Acute (7) Pseudomonas pneumonia: Status: Acute (8) Staphylococcal pneumonia: Status: Acute (9) Acute and chronic respiratory failure: Status: Acute Plan Assessment: 73-year-old lady with underlying small-cell lung cancer on chemotherapy, CKD, cirrhosis, heart failure admitted with encephalopathy , pneumonia, and acute on chronic hypoxic respiratory failure requiring ventilatory support, now complicated by multiorgan failure Plan: Neuro: subacute encephalopathy likely septic in nature. Cardiac: No acute issues. Underlying chronic diastolic dysfunction. Pulmonary: Acute on chronic hypoxic respiratory failure requiring ventilatory support likely as a combination pulmonary edema and pneumonia with underlying supplemental oxygen 2 L dependent COPD. Continue to titrate off ventilatory support as tolerated. Renal: Underlying chronic renal disease, now with worsening urine output and increasing hyperkalemia, may require hemodialysis. Non oliguric. Continue to monitor renal indices and urine output. Endo: No acute issues. GI: No acute issues. Underlying history of non alcoholic cirrhosis. ID: Pseudomonas bacteremia and Pseudomonas/ staphylococcal pneumonia. Continue ciprofloxacin and Bactrim. Heme/Onc: pancytopenia, likely small-cell lung cancer /chemotherapy related. Transfuse to hemoglobin goal above 7. Psych: No acute issues. Miscellaneous: overall poor prognosis, discussions of goals of care are ongoing with the family. Prophylaxis: Pneumatic compression, PPI Diet: tube feeds Critical care time spent: 45 minutes Quality Stroke Does the patient have a stroke diagnosis?: No VTE Prior VTE?: No VTE Risk Level:: Medical - moderate - high VTE Device Contraindication: N/A - Device Ordered VTE Drug Contraindication: Treatment Not Tolerated
[2024-05-28] MEDS: Famotidine/PF 20 MG/2 ML VIAL IVPUSH (10:38)
[2024-05-28 12:05] LABS: Glucose, Whole Blood 89 mg/dL (60-115)
--- NOTE | 2024-05-28 12:54 | MHC.CM.PN ---
Pt continus care in ICU: family is requesting to hold off on goals of care decisions until Thursday 06/01. No changes to current care plan. Pt had been at [facility] and is on a bed hold. CM to follow
--- NOTE | 2024-05-28 18:38 | PC.NURSE ---
ICU Day #: 10 Vent Day #: 10 Neuro: Sedated w. Propofol gtt, does not open eyes, does not track, does not follow commands, Flaccid extremities. (passive ROM performed).? Resp: ?ACPC vent. Support, Rhoncurus Lung Sounds bilaterally. Cardiac: Sinus Rhythm, generalized edema. GI: Fecal management device in place, +bowel sounds, OGT in place, tolerating TF with no signs of intolerance, POC Q6hr. : Henderson in place, patent /draining. Skin: Impaired skin integrity - see skin assessment (repositioning maintained)? Infectious: On Vancomyacyn, Ciprofloxacin and Bactrim? Lines: Access Implanted port to right chest, peripheral IVs
[2024-05-28 18:41] LABS: Glucose, Whole Blood 93 mg/dL (60-115)
[2024-05-28 23:27] LABS: Glucose, Whole Blood 95 mg/dL (60-115)
[2024-05-29] VITALS (33 sets, daily range): BP systolic 75–138; BP diastolic 37–80; PULSE 77–90; RESP 20–30; TEMP 34.7–37.5; O2SAT 90–97; BMI 34.2
[2024-05-29] MEDS: propofoL 1,000 MG/100 ML VIAL 18.45 MG IVCONT ×4 (04:52→20:00)
[2024-05-29 05:26] LABS: VBG Base Excess -5.3 mmol/L; VBG HCO3 17 mmol/L (22-26); VBG pCO2 26 mmHg; VBG pH 7.43 (7.32-7.43); VBG pO2 42 mmHg
[2024-05-29 05:48] LABS: Hemoglobin 7.8 g/dl (12.0-16.0); Lymphocytes Percent Auto 4.1 % (20-40); PLT ABN DIST 1; SCAN SMEAR FLAG 1
[2024-05-29 05:50] LABS: Basophils Percent Auto 0.1 % (0-2); Hematocrit 21.9 % (37.0-47.0); Imm Gran Abs Auto 0.08 X10*3/uL (0.00-0.03); Lymphocytes Absolute Auto 0.3 X10*3/uL (1.2-4.9); Mean Corpuscular HGB Conc 35.6 g/dl (31.0-35.0); Mean Corpuscular Hemoglobin 28.8 pg (27.0-33.0); Mean Corpuscular Volume 80.8 fL (80.0-98.0); Monocytes Absolute Auto 0.4 X10*3/uL (0.1-1.2); Monocytes Percent Auto 4.7 % (2-11); Neutrophils Absolute Auto 7.4 x10*3/uL (2.0-8.3); Neutrophils Percent Auto 90.1 % (45-73); Platelet Count 27 X10*3/uL (160-400); Red Blood Count 2.71 X10*6/uL (4.20-5.50); Red Cell Distribution Width 16.7 % (11.0-16.0); White Blood Count 8.2 X10*3/uL (4.8-10.8)
[2024-05-29 05:51] LABS: MANUAL DIFF FLAG SCAN
[2024-05-29 06:08] LABS: Albumin Level 3.3 g/dL (3.5-5.0); Anion Gap 19 (12-20); Blood Urea Nitrogen 74 mg/dL (9-16); Calcium 7.9 mg/dL (8.4-10.2); Carbon Dioxide 16 mmol/L (22-29); Chloride 92 mmol/L (96-108); Creatinine Clr Calc Pharmacy 17.8; Estimated Glomerular Filt Rate 19; Glucose Random 103 mg/dL (60-115); Magnesium 1.8 mg/dL (1.6-2.6); Phosphorus 6.1 mg/dL (2.7-4.5); Potassium 4.1 mmol/L (3.3-5.1); Sodium 123 mmol/L (135-145)
--- NOTE | 2024-05-29 06:20 | PC.NURSE ---
Patient remains intubated and sedated. Propofol gtt running per MAY. RASS -4 for vent synchrony. SR/ Afib on tele, HR 70s-80s, with bursts of Afib up to 150s, EMS DIRECTOR aware. Lung sounds coarse and rhonchorous, see vent assessment. TF infusing at goal. FMS in place and patent, draining liquid dark green stool. Henderson catheter in place, with low UOP, approx 5-20mL/hr. Patient is profoundly edematous with anasarca and weeping to all extremities. Skin tear to LUE wrapped with?xeroform and gauze, DTI to coccyx with maceration, triad applied and patient repositioned Q2HR. Bed locked in lowest position, bed alarm on.?
[2024-05-29 06:54] LABS: SLIDE REVIEW VERIFIED
[2024-05-29] MEDS: Albuterol/Iprat 2.5/0.5MG 3 ML AMPUL.NEB INHALE ×3 (08:01→20:02)
[2024-05-29] MEDS: Lactulose 20 GM/30 ML SOLUTION 30 GM PO ×2 (08:04→20:00)
[2024-05-29] MEDS: 0.9 % Sodium Chloride Flush 3 ML SYRINGE IVFLUSH ×2 (08:04→16:22)
[2024-05-29] MEDS: vancomycin HCL Oral Solution 125 MG/5 ML SOLN.RECON PO (08:04)
[2024-05-29] MEDS: Sulfameth/Trimet 800/160/20 ML 20 ML ORAL.SUSP PO (08:04)
[2024-05-29] MEDS: Famotidine/PF 20 MG/2 ML VIAL IVPUSH (08:04)
[2024-05-29] MEDS: Chlorhexidine Gluc Oral Rinse 15 ML MOUTHWASH BUCCAL ×3 (08:04→20:01)
[2024-05-29] MEDS: Ciprofloxacin Lactate/D5W 400 MG/200 ML PIGGYBACK 200 MG IV ×2 (08:04→20:01)
[2024-05-29 08:07] LABS: Venous Blood Gas Refer to POC result
[2024-05-29] MEDS: Bumetanide 25 MG in Container,Empty 0 ML IVCONT (10:00)
--- NOTE | 2024-05-29 10:26 | MHC.CLN ---
F/U PT REMAINS INTUBATED AND SEDATED DISCUSSED AT ROUNDS WITH MD RECOMMEND NEPRO TF AT MAX GOAL RATE 25ML/HR PROVIDES 1080KCALS (1567 KCALS WITH SEDATION; 32ML/KG), 49G PROTEIN (1.0G/KG), 436ML WATER FROM FORMULA WILL D/C 240ML FREE WATER FLUSHES Q 8 HRS R/T DECREASED SERUM NA CONTINUE TO MONITOR TOLERANCE AND LYTES
[2024-05-29 11:48] LABS: Glucose, Whole Blood 102 mg/dL (60-115)
--- NOTE | 2024-05-29 13:47 | PM.CCPN ---
Subjective Subjective Date of Service: 05/29/24 Interval History: 73-year-old lady with underlying 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 Hospital course significant for progressive respiratory failure requiring intubation in 05/19/2024, Pseudomonas bacteremia, further deterioration of renal function, now with development of hyperkalemia and ongoing pancytopenia. No events overnight. Critical Care Time (minutes): 45 Physical Exam Vital Signs: Vital Signs: Last Vital Signs Temp 98.4 F 05/29/24 13:00 Pulse 77 05/29/24 13:00 Resp 23 H 05/29/24 13:00 BP 128/67 05/29/24 13:00 Pulse Ox 93 05/29/24 13:00 O2 Del Method Mechanical Ventil ation 05/29/24 13:00 O2 Flow Rate 50 05/23/24 15:00 FiO2 50 05/29/24 13:00 Oxygen Flow Rate 2 05/18/24 11:16 BMI result Body Mass Index 34.2 Const: General: no acute distress and other (Sedated on the vent) Nutritional Appearance: Edematous Eyes: Sclerae: sclerae normal EOM: EOMs intact bilaterally Neck: Neck: Yes no lymphadenopathy, Yes trachea midline and Yes supple Resp: Auscultation: crackles (Bilateral) Cardio: Rate: regular rate Rhythm: regular rhythm Heart sounds: no gallops, no murmurs and no rubs GI: Inspection: Yes distended Palpation (GI): Soft to palpation and Other GI palpation findings present ( Nontender) Auscultation: normal bowel sounds Extrem: General: No clubbing, No cyanosis and Yes edema (1+ bilateral) Objective Data Labs 05/29/24 05:29 05/29/24 05:29 Labs: Laboratory Results - last 24 hr 05/28/24 05/28/24 05/29/24 18:37 23:20 05:23 WBC RBC Hgb Hct MCV MCH MCHC RDW Plt Count MPV Immature Gran % (Auto) Neut % (Auto) Lymph % (Auto) [place] % (Auto) Eos % (Auto) Baso % (Auto) Lymph # (Auto) [place] # (Auto) Eos # (Auto) Baso # (Auto) Abs Immat Gran (auto) Absolute Neuts (auto) Absolute Nucleated RBC Nucleated RBC % (auto) Smear Tech's Comments VBG pH 7.43 VBG pCO2 26 VBG pO2 42 VBG HCO3 17 L VBG O2 Saturation 74.0 VBG Base Excess -5.3 Sodium Potassium Chloride Carbon Dioxide Anion Gap BUN Creatinine Estim Creat Clear Calc Estimated GFR POC Glucose 93 95 Random Glucose Calcium Phosphorus Magnesium Albumin 05/29/24 05/29/24 05:29 11:44 WBC 8.2 RBC 2.71 L Hgb 7.8 L Hct 21.9 L MCV 80.8 MCH 28.8 MCHC 35.6 H RDW 16.7 H Plt Count 27 L MPV 12.0 Immature Gran % (Auto) 1.0 H Neut % (Auto) 90.1 H Lymph % (Auto) 4.1 L [place] % (Auto) 4.7 Eos % (Auto) 0.0 Baso % (Auto) 0.1 Lymph # (Auto) 0.3 L [place] # (Auto) 0.4 Eos # (Auto) 0.0 Baso # (Auto) 0.0 Abs Immat Gran (auto) 0.08 H Absolute Neuts (auto) 7.4 Absolute Nucleated RBC 0.000 Nucleated RBC % (auto) 0.0 Smear Tech's Comments VERIFIED VBG pH VBG pCO2 VBG pO2 VBG HCO3 VBG O2 Saturation VBG Base Excess Sodium 123 L Potassium 4.1 Chloride 92 L Carbon Dioxide 16 L Anion Gap 19 BUN 74 H Creatinine 2.47 H Estim Creat Clear Calc 17.8 Estimated GFR 19 POC Glucose 102 Random Glucose 103 Calcium 7.9 L Phosphorus 6.1 H Magnesium 1.8 Albumin 3.3 L Microbiology Microbiology Results: Microbiology 05/19/24 07:45 Blood - Venous Blood Culture - Final No growth after 5 days. 05/19/24 05:53 Blood - Venous Blood Culture - Final No growth after 5 days. 05/18/24 13:32 Blood - Venous Blood Culture - Final Pseudomonas aeruginosa 05/18/24 12:07 Blood - Venous Blood Culture - Final Pseudomonas aeruginosa 05/19/24 01:10 Sputum - Suctioned Gram Stain - Final 05/19/24 01:10 Sputum - Suctioned Sputum Culture - Final Pseudomonas aeruginosa Staphylococcus aureus Progress Note: A&P Assessment and plan (1) Multi-organ failure with heart failure: Status: Acute (2) Other cirrhosis of liver: Status: Acute (3) DON (acute kidney injury): Status: Acute (4) Small cell lung cancer in adult: Status: Acute (5) Bacteremia due to Pseudomonas: Status: Acute (6) Metabolic encephalopathy: Status: Acute (7) COPD (chronic obstructive pulmonary disease): Status: Acute (8) Acute and chronic respiratory failure: Status: Acute (9) Pseudomonas pneumonia: Status: Acute (10) Staphylococcal pneumonia: Status: Acute Plan Assessment: 73-year-old lady with underlying small-cell lung cancer on chemotherapy, CKD, cirrhosis, heart failure admitted with encephalopathy , pneumonia, and acute on chronic hypoxic respiratory failure requiring ventilatory support, now complicated by multiorgan failure Plan: Neuro: subacute encephalopathy likely septic in nature. Cardiac: No acute issues. Underlying chronic diastolic dysfunction. Pulmonary: Acute on chronic hypoxic respiratory failure requiring ventilatory support likely as a combination pulmonary edema and pneumonia with underlying supplemental oxygen 2 L dependent COPD. Continue to titrate off ventilatory support as tolerated. Renal: Underlying chronic renal disease, now with worsening urine output will start on diuretic drip, may require hemodialysis. Non oliguric. Continue to monitor renal indices and urine output. Endo: No acute issues. GI: No acute issues. Underlying history of non alcoholic cirrhosis. ID: Pseudomonas bacteremia and Pseudomonas/ staphylococcal pneumonia. Continue ciprofloxacin and Bactrim. Heme/Onc: pancytopenia, likely small-cell lung cancer /chemotherapy related. Transfuse to hemoglobin goal above 7. Psych: No acute issues. Miscellaneous: overall poor prognosis, discussions of goals of care are ongoing with the family. Prophylaxis: Pneumatic compression, PPI Diet: tube feeds Critical care time spent: 45 minutes Quality Stroke Does the patient have a stroke diagnosis?: No VTE Prior VTE?: No VTE Risk Level:: Medical - moderate - high VTE Device Contraindication: N/A - Device Ordered VTE Drug Contraindication: Treatment Not Tolerated
[2024-05-29] MEDS: Chlorothiazide Sodium 500 MG VIAL 1000 MG IVPUSH (15:05)
[2024-05-29 18:36] LABS: Glucose, Whole Blood 91 mg/dL (60-115)
--- NOTE | 2024-05-29 19:16 | PC.NURSE ---
ICU Day #: 11 Vent Day #: 11 Neuro: Sedated w. Propofol gtt, does not open eyes, does not track, does not follow commands, Flaccid extremities. (passive ROM performed).? Resp: ?ACPC vent. Support, Rhoncurus Lung Sounds bilaterally. Cardiac: Sinus Rhythm with BBB, generalized edema. GI: Fecal management device in place, +bowel sounds, OGT in place, tolerating TF with no signs of intolerance, POC Q6hr. : Henderson in place, patent /draining. Skin: Impaired skin integrity - see skin assessment (repositioning maintained)? Infectious: On Vancomyacyn, Ciprofloxacin and Bactrim? Lines: Access Implanted port to right chest, peripheral IVs
[2024-05-29 19:57] LABS: Hemoglobin 7.4 g/dl (12.0-16.0); Red Cell Distribution Width 16.9 % (11.0-16.0)
[2024-05-29 19:59] LABS: Hematocrit 21.4 % (37.0-47.0); Mean Corpuscular HGB Conc 34.6 g/dl (31.0-35.0); Mean Corpuscular Hemoglobin 28.5 pg (27.0-33.0); Mean Corpuscular Volume 82.3 fL (80.0-98.0); White Blood Count 8.6 X10*3/uL (4.8-10.8)
[2024-05-29 20:11] LABS: PLT ABN DIST 1; Platelet Count 27 X10*3/uL (160-400)
[2024-05-29 20:12] LABS: Albumin Level 3.1 g/dL (3.5-5.0); Anion Gap 18 (12-20); Blood Urea Nitrogen 78 mg/dL (9-16); Calcium 7.9 mg/dL (8.4-10.2); Carbon Dioxide 16 mmol/L (22-29); Chloride 92 mmol/L (96-108); Creatinine Clr Calc Pharmacy 17.3; Estimated Glomerular Filt Rate 18; Glucose Random 99 mg/dL (60-115); Magnesium 1.9 mg/dL (1.6-2.6); Phosphorus 6.7 mg/dL (2.7-4.5); Potassium 3.9 mmol/L (3.3-5.1); Sodium 122 mmol/L (135-145)
[2024-05-30] VITALS (45 sets, daily range): BP systolic 82–130; BP diastolic 39–69; PULSE 8–131; RESP 22–33; TEMP 34.5–37.6; O2SAT 90–99; BMI 32.7
[2024-05-30 00:11] LABS: Glucose, Whole Blood 102 mg/dL (60-115)
[2024-05-30] MEDS: propofoL 1,000 MG/100 ML VIAL 18.45 MG IVCONT ×5 (00:19→21:02)
[2024-05-30 04:50] LABS: VBG Base Excess -5.2 mmol/L; VBG HCO3 17 mmol/L (22-26); VBG pCO2 26 mmHg; VBG pH 7.43 (7.32-7.43); VBG pO2 51 mmHg
[2024-05-30 05:08] LABS: MANUAL DIFF FLAG NO
[2024-05-30 05:10] LABS: Basophils Percent Auto 0.1 % (0-2); Eosinophils Percent Auto 0.1 % (0-4); Hematocrit 22.5 % (37.0-47.0); Hemoglobin 7.9 g/dl (12.0-16.0); Imm Gran Abs Auto 0.11 X10*3/uL (0.00-0.03); Imm Gran Pct Auto 1.1 % (0.0-0.4); Lymphocytes Absolute Auto 0.5 X10*3/uL (1.2-4.9); Lymphocytes Percent Auto 4.8 % (20-40); Mean Corpuscular HGB Conc 35.1 g/dl (31.0-35.0); Mean Corpuscular Hemoglobin 28.6 pg (27.0-33.0); Mean Corpuscular Volume 81.5 fL (80.0-98.0); Mean Platelet Volume 11.5 fL (9.4-12.3); Monocytes Absolute Auto 0.5 X10*3/uL (0.1-1.2); Monocytes Percent Auto 4.9 % (2-11); Neutrophils Absolute Auto 9.1 x10*3/uL (2.0-8.3); Red Blood Count 2.76 X10*6/uL (4.20-5.50); White Blood Count 10.2 X10*3/uL (4.8-10.8)
[2024-05-30 05:13] LABS: Platelet Count 33 X10*3/uL (160-400)
[2024-05-30 05:29] LABS: Albumin Level 3.2 g/dL (3.5-5.0); Anion Gap 20 (12-20); Blood Urea Nitrogen 81 mg/dL (9-16); Carbon Dioxide 16 mmol/L (22-29); Chloride 91 mmol/L (96-108); Estimated Glomerular Filt Rate 18; Glucose Random 86 mg/dL (60-115); Magnesium 1.9 mg/dL (1.6-2.6); Phosphorus 6.9 mg/dL (2.7-4.5); Potassium 3.8 mmol/L (3.3-5.1); Sodium 123 mmol/L (135-145)
[2024-05-30 06:13] LABS: Venous Blood Gas Refer to POC result
[2024-05-30] MEDS: Albuterol/Iprat 2.5/0.5MG 3 ML AMPUL.NEB INHALE ×3 (07:54→20:17)
[2024-05-30] MEDS: Chlorhexidine Gluc Oral Rinse 15 ML MOUTHWASH BUCCAL ×3 (09:16→21:02)
[2024-05-30] MEDS: vancomycin HCL Oral Solution 125 MG/5 ML SOLN.RECON PO (09:16)
[2024-05-30] MEDS: Lactulose 20 GM/30 ML SOLUTION 30 GM PO (09:16)
[2024-05-30] MEDS: Ciprofloxacin Lactate/D5W 400 MG/200 ML PIGGYBACK 200 MG IV ×2 (09:16→21:11)
[2024-05-30] MEDS: Famotidine/PF 20 MG/2 ML VIAL IVPUSH (09:16)
[2024-05-30] MEDS: Albumin Human 25 % 100 ML IV ×2 (09:17→15:16)
[2024-05-30] MEDS: 0.9 % Sodium Chloride Flush 3 ML SYRINGE IVFLUSH ×2 (09:17→15:16)
[2024-05-30] MEDS: Bumetanide 25 MG in Container,Empty 0 ML IVCONT (10:34)
[2024-05-30 11:22] LABS: Glucose, Whole Blood 96 mg/dL (60-115)
--- NOTE | 2024-05-30 11:43 | PM.CCPN ---
Subjective Subjective Date of Service: 05/30/24 Interval History: 73-year-old lady with underlying 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 Hospital course significant for progressive respiratory failure requiring intubation in 05/19/2024, Pseudomonas bacteremia, further deterioration of renal function, now with development of hyperkalemia and ongoing pancytopenia. Overnight with episodes of AFib, self-limited. Critical Care Time (minutes): 45 Physical Exam Vital Signs: Vital Signs: Last Vital Signs Temp 98.8 F 05/30/24 11:00 Pulse 81 05/30/24 11:07 Resp 29 H 05/30/24 11:00 BP 85/39 L 05/30/24 11:07 Pulse Ox 95 05/30/24 11:00 O2 Del Method Mechanical Ventil ation 05/30/24 11:00 O2 Flow Rate 50 05/23/24 15:00 FiO2 50 05/30/24 11:00 Oxygen Flow Rate 2 05/18/24 11:16 BMI result Body Mass Index 32.7 Const: General: no acute distress, ill appearing and other (Sedated on ventilatory support) Nutritional Appearance: Edematous Eyes: Sclerae: sclerae normal Neck: Neck: Yes no lymphadenopathy, Yes trachea midline and Yes supple Resp: Auscultation: crackles (Bilateral) Cardio: Rate: regular rate Rhythm: regular rhythm Heart sounds: no gallops, no murmurs and no rubs GI: Palpation (GI): Soft to palpation and Other GI palpation findings present ( Nontender) Auscultation: normal bowel sounds Extrem: General: No clubbing, No cyanosis and Yes edema (2+ bilateral) Objective Data Labs 05/30/24 04:40 05/30/24 04:40 Labs: Laboratory Results - last 24 hr 05/29/24 05/29/24 05/29/24 11:44 18:33 19:23 WBC 8.6 RBC 2.60 L Hgb 7.4 L Hct 21.4 L MCV 82.3 MCH 28.5 MCHC 34.6 RDW 16.9 H Plt Count 27 L MPV Not Reportable Immature Gran % (Auto) Neut % (Auto) Lymph % (Auto) [place] % (Auto) Eos % (Auto) Baso % (Auto) Lymph # (Auto) [place] # (Auto) Eos # (Auto) Baso # (Auto) Abs Immat Gran (auto) Absolute Neuts (auto) Absolute Nucleated RBC 0.000 Nucleated RBC % (auto) 0.0 VBG pH VBG pCO2 VBG pO2 VBG HCO3 VBG O2 Saturation VBG Base Excess Sodium 122 L Potassium 3.9 Chloride 92 L Carbon Dioxide 16 L Anion Gap 18 BUN 78 H Creatinine 2.54 H Estim Creat Clear Calc 17.3 Estimated GFR 18 POC Glucose 102 91 Random Glucose 99 Calcium 7.9 L Phosphorus 6.7 H Magnesium 1.9 Albumin 3.1 L 05/30/24 05/30/24 05/30/24 00:07 04:40 04:45 WBC 10.2 RBC 2.76 L Hgb 7.9 L Hct 22.5 L MCV 81.5 MCH 28.6 MCHC 35.1 H RDW 17.0 H Plt Count 33 L MPV 11.5 Immature Gran % (Auto) 1.1 H Neut % (Auto) 89.0 H Lymph % (Auto) 4.8 L [place] % (Auto) 4.9 Eos % (Auto) 0.1 Baso % (Auto) 0.1 Lymph # (Auto) 0.5 L [place] # (Auto) 0.5 Eos # (Auto) 0.0 Baso # (Auto) 0.0 Abs Immat Gran (auto) 0.11 H Absolute Neuts (auto) 9.1 H Absolute Nucleated RBC 0.000 Nucleated RBC % (auto) 0.0 VBG pH 7.43 VBG pCO2 26 VBG pO2 51 VBG HCO3 17 L VBG O2 Saturation 80.0 VBG Base Excess -5.2 Sodium 123 L Potassium 3.8 Chloride 91 L Carbon Dioxide 16 L Anion Gap 20 BUN 81 H Creatinine 2.58 H Estim Creat Clear Calc 17.0 Estimated GFR 18 POC Glucose 102 Random Glucose 86 Calcium 8.0 L Phosphorus 6.9 H Magnesium 1.9 Albumin 3.2 L 05/30/24 11:15 WBC RBC Hgb Hct MCV MCH MCHC RDW Plt Count MPV Immature Gran % (Auto) Neut % (Auto) Lymph % (Auto) [place] % (Auto) Eos % (Auto) Baso % (Auto) Lymph # (Auto) [place] # (Auto) Eos # (Auto) Baso # (Auto) Abs Immat Gran (auto) Absolute Neuts (auto) Absolute Nucleated RBC Nucleated RBC % (auto) VBG pH VBG pCO2 VBG pO2 VBG HCO3 VBG O2 Saturation VBG Base Excess Sodium Potassium Chloride Carbon Dioxide Anion Gap BUN Creatinine Estim Creat Clear Calc Estimated GFR POC Glucose 96 Random Glucose Calcium Phosphorus Magnesium Albumin Microbiology Microbiology Results: Microbiology 05/19/24 07:45 Blood - Venous Blood Culture - Final No growth after 5 days. 05/19/24 05:53 Blood - Venous Blood Culture - Final No growth after 5 days. 05/18/24 13:32 Blood - Venous Blood Culture - Final Pseudomonas aeruginosa 05/18/24 12:07 Blood - Venous Blood Culture - Final Pseudomonas aeruginosa 05/19/24 01:10 Sputum - Suctioned Gram Stain - Final 05/19/24 01:10 Sputum - Suctioned Sputum Culture - Final Pseudomonas aeruginosa Staphylococcus aureus Progress Note: A&P Assessment and plan (1) Multi-organ failure with heart failure: Status: Acute (2) Other cirrhosis of liver: Status: Acute (3) DON (acute kidney injury): Status: Acute (4) Small cell lung cancer in adult: Status: Acute (5) Bacteremia due to Pseudomonas: Status: Acute (6) Metabolic encephalopathy: Status: Acute (7) COPD (chronic obstructive pulmonary disease): Status: Acute (8) Pseudomonas pneumonia: Status: Acute (9) Staphylococcal pneumonia: Status: Acute Plan Assessment: 73-year-old lady with underlying small-cell lung cancer on chemotherapy, CKD, cirrhosis, heart failure admitted with encephalopathy , pneumonia, and acute on chronic hypoxic respiratory failure requiring ventilatory support, now complicated by multiorgan failure Plan: Neuro: subacute encephalopathy likely septic in nature. Cardiac: Paroxysmal AFib. Underlying chronic diastolic dysfunction. Pulmonary: Acute on chronic hypoxic respiratory failure requiring ventilatory support likely as a combination pulmonary edema and pneumonia with underlying supplemental oxygen 2 L dependent COPD and small-cell lung cancer. Continue to titrate off ventilatory support as tolerated. Renal: Underlying chronic renal disease, worsening, with poor response to diuretic challenge, may require hemodialysis. Non oliguric. Continue to monitor renal indices and urine output. Endo: No acute issues. GI: No acute issues. Underlying history of non alcoholic cirrhosis. ID: Pseudomonas bacteremia and Pseudomonas/ staphylococcal pneumonia. Continue ciprofloxacin and Bactrim. Heme/Onc: pancytopenia, likely small-cell lung cancer /chemotherapy related. Transfuse to hemoglobin goal above 7. Psych: No acute issues. Miscellaneous: overall poor prognosis, discussions of goals of care are ongoing with the family. Prophylaxis: Pneumatic compression, PPI Diet: tube feeds Critical care time spent: 45 minutes Quality Stroke Does the patient have a stroke diagnosis?: No VTE Prior VTE?: No VTE Risk Level:: Medical - moderate - high VTE Device Contraindication: N/A - Device Ordered VTE Drug Contraindication: Treatment Not Tolerated
[2024-05-30 18:26] LABS: Glucose, Whole Blood 104 mg/dL (60-115)
--- NOTE | 2024-05-30 18:33 | PC.NURSE ---
ICU Day #: 12 Vent Day #: 12 Neuro: Sedated w. Propofol gtt per MAY , does not open eyes, does not track, does not follow commands, Flaccid extremities. (passive ROM performed).? Resp: ?ACPC vent. Support, Rhoncurus Lung Sounds bilaterally. Cardiac: During the am Converted from Sinus Rhythm with BBB to Afib and then back to sinus , levophed gtt titrated per MAY, MAP goal >65.? generalized weeping edema. GI: Fecal management device in place, +bowel sounds, OGT in place, tolerating TF with no signs of intolerance, POC Q6hr. : Henderson in place, patent /draining. Skin: Impaired skin integrity - see skin assessment (repositioning maintained)? Infectious: On Vancomyacyn, Ciprofloxacin and Bactrim? Lines: Access Implanted port to right chest, peripheral IVs
[2024-05-30] MEDS: Norepinephrine Bitartrate/D5W 8 MG/250 ML PLAST..BAG 5.77 MG IVCONT (19:15)
[2024-05-30 19:38] LABS: Hemoglobin 7.1 g/dl (12.0-16.0); Mean Corpuscular HGB Conc 34.5 g/dl (31.0-35.0); Mean Corpuscular Hemoglobin 28.3 pg (27.0-33.0); Mean Corpuscular Volume 82.1 fL (80.0-98.0); Red Blood Count 2.51 X10*6/uL (4.20-5.50); Red Cell Distribution Width 17.1 % (11.0-16.0); White Blood Count 8.8 X10*3/uL (4.8-10.8)
[2024-05-30 19:39] LABS: Platelet Count 26 X10*3/uL (160-400)
[2024-05-30 19:41] LABS: Hematocrit 20.6 % (37.0-47.0)
[2024-05-30 19:55] LABS: Albumin Level 3.6 g/dL (3.5-5.0); Anion Gap 21 (12-20); Blood Urea Nitrogen 80 mg/dL (9-16); Calcium 7.9 mg/dL (8.4-10.2); Carbon Dioxide 15 mmol/L (22-29); Chloride 91 mmol/L (96-108); Creatinine Clr Calc Pharmacy 16.7; Estimated Glomerular Filt Rate 18; Glucose Random 111 mg/dL (60-115); Magnesium 1.8 mg/dL (1.6-2.6); Phosphorus 7.1 mg/dL (2.7-4.5); Potassium 3.9 mmol/L (3.3-5.1); Sodium 123 mmol/L (135-145)
[2024-05-30] MEDS: Calcium Gluconate/NaCl,Iso-Osm 2 GM/100 ML PLAST..BAG IV (21:10)
[2024-05-30 23:37] LABS: Glucose, Whole Blood 105 mg/dL (60-115)
[2024-05-31] VITALS (42 sets, daily range): BP systolic 72–158; BP diastolic 39–80; PULSE 79–122; RESP 19–35; TEMP 34.7–37.4; O2SAT 95–99; BMI 32.6
[2024-05-31] MEDS: 0.9 % Sodium Chloride Flush 3 ML SYRINGE IVFLUSH ×3 (00:37→15:07)
[2024-05-31] MEDS: propofoL 1,000 MG/100 ML VIAL 18.45 MG IVCONT ×2 (00:49→05:26)
[2024-05-31] MEDS: Albuterol Sulfate (0.083%) 2.5 MG/3 ML VIAL.NEB INHALE (04:43)
[2024-05-31 04:52] LABS: VBG Base Excess -7.7 mmol/L; VBG HCO3 16 mmol/L (22-26); VBG pCO2 28 mmHg; VBG pH 7.36 (7.32-7.43); VBG pO2 52 mmHg
[2024-05-31 05:08] LABS: Basophils Percent Auto 0.2 % (0-2); Eosinophils Percent Auto 0.1 % (0-4); Hematocrit 23.3 % (37.0-47.0); Hemoglobin 8.3 g/dl (12.0-16.0); Imm Gran Abs Auto 0.11 X10*3/uL (0.00-0.03); Imm Gran Pct Auto 1.1 % (0.0-0.4); Lymphocytes Absolute Auto 0.4 X10*3/uL (1.2-4.9); Lymphocytes Percent Auto 4.6 % (20-40); MANUAL DIFF FLAG NO; Mean Corpuscular HGB Conc 35.6 g/dl (31.0-35.0); Mean Corpuscular Hemoglobin 29.2 pg (27.0-33.0); Mean Platelet Volume 11.5 fL (9.4-12.3); Monocytes Absolute Auto 0.6 X10*3/uL (0.1-1.2); Monocytes Percent Auto 6.3 % (2-11); Neutrophils Absolute Auto 8.5 x10*3/uL (2.0-8.3); Neutrophils Percent Auto 87.7 % (45-73); Red Blood Count 2.84 X10*6/uL (4.20-5.50); Red Cell Distribution Width 16.3 % (11.0-16.0); White Blood Count 9.7 X10*3/uL (4.8-10.8)
[2024-05-31 05:15] LABS: Platelet Count 29 X10*3/uL (160-400)
[2024-05-31 05:45] LABS: Albumin Level 3.3 g/dL (3.5-5.0); Anion Gap 22 (12-20); Blood Urea Nitrogen 83 mg/dL (9-16); Carbon Dioxide 14 mmol/L (22-29); Chloride 92 mmol/L (96-108); Creatinine Clr Calc Pharmacy 16.3; Estimated Glomerular Filt Rate 18; Glucose Random 93 mg/dL (60-115); Magnesium 1.8 mg/dL (1.6-2.6); Potassium 3.5 mmol/L (3.3-5.1); Sodium 124 mmol/L (135-145)
[2024-05-31 05:56] LABS: Venous Blood Gas Refer to POC result
[2024-05-31] MEDS: Albuterol/Iprat 2.5/0.5MG 3 ML AMPUL.NEB INHALE ×3 (07:59→20:05)
[2024-05-31] MEDS: Chlorhexidine Gluc Oral Rinse 15 ML MOUTHWASH BUCCAL ×3 (08:35→20:13)
[2024-05-31] MEDS: vancomycin HCL Oral Solution 125 MG/5 ML SOLN.RECON PO (08:37)
[2024-05-31] MEDS: Ciprofloxacin Lactate/D5W 400 MG/200 ML PIGGYBACK 200 MG IV (08:37)
[2024-05-31] MEDS: Famotidine/PF 20 MG/2 ML VIAL IVPUSH (08:37)
[2024-05-31] MEDS: Bumetanide 25 MG in Container,Empty 0 ML IVCONT (10:16)
--- NOTE | 2024-05-31 10:29 | P.PNCC_ITS ---
Subjective Subjective Date of Service: 05/31/24 Interval History: 73-year-old lady with underlying 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 Hospital course significant for progressive respiratory failure requiring intubation in 05/19/2024, Pseudomonas bacteremia, further deterioration of renal function resulting in anasarca. No events overnight. Critical Care Time (minutes): 45 Physical Exam 2 Vital Signs: Vital Signs: Last Vital Signs Temp 98.6 F 05/31/24 09:00 Pulse 83 05/31/24 09:00 Resp 26 H 05/31/24 09:00 BP 109/56 L 05/31/24 10:16 Pulse Ox 95 05/31/24 09:00 O2 Del Method Mechanical Ventil ation 05/31/24 09:00 O2 Flow Rate 50 05/23/24 15:00 FiO2 45 05/31/24 09:00 Oxygen Flow Rate 2 05/18/24 11:16 BMI result Body Mass Index 32.6 Const: General: no acute distress, ill appearing and other (Sedated on ventilatory support) Nutritional Appearance: Edematous Eyes: Sclerae: sclerae normal Neck: Neck: Yes no lymphadenopathy, Yes trachea midline and Yes supple Resp: Auscultation: crackles (Bilateral) Cardio: Rate: regular rate Rhythm: regular rhythm Heart sounds: no gallops, no murmurs and no rubs GI: Palpation (GI): Soft to palpation and Other GI palpation findings present ( Nontender) Auscultation: normal bowel sounds Extrem: General: No clubbing, No cyanosis and Yes edema (2+ bilateral) Objective Data Labs 05/31/24 04:43 05/31/24 04:43 Labs: Laboratory Results - last 24 hr 05/30/24 05/30/24 05/30/24 11:15 18:23 19:24 WBC 8.8 RBC 2.51 L Hgb 7.1 L Hct 20.6 L* MCV 82.1 MCH 28.3 MCHC 34.5 RDW 17.1 H Plt Count 26 L MPV Not Reportable Immature Gran % (Auto) Neut % (Auto) Lymph % (Auto) [place] % (Auto) Eos % (Auto) Baso % (Auto) Lymph # (Auto) [place] # (Auto) Eos # (Auto) Baso # (Auto) Abs Immat Gran (auto) Absolute Neuts (auto) Absolute Nucleated RBC 0.000 Nucleated RBC % (auto) 0.0 VBG pH VBG pCO2 VBG pO2 VBG HCO3 VBG O2 Saturation VBG Base Excess Sodium 123 L Potassium 3.9 Chloride 91 L Carbon Dioxide 15 L Anion Gap 21 H BUN 80 H Creatinine 2.56 H Estim Creat Clear Calc 16.7 Estimated GFR 18 POC Glucose 96 104 Random Glucose 111 Calcium 7.9 L Phosphorus 7.1 H Magnesium 1.8 Albumin 3.6 Blood Type Antibody Screen Crossmatch 05/30/24 05/30/24 05/31/24 21:00 23:25 04:43 WBC 9.7 RBC 2.84 L Hgb 8.3 L Hct 23.3 L MCV 82.0 MCH 29.2 MCHC 35.6 H RDW 16.3 H Plt Count 29 L MPV 11.5 Immature Gran % (Auto) 1.1 H Neut % (Auto) 87.7 H Lymph % (Auto) 4.6 L [place] % (Auto) 6.3 Eos % (Auto) 0.1 Baso % (Auto) 0.2 Lymph # (Auto) 0.4 L [place] # (Auto) 0.6 Eos # (Auto) 0.0 Baso # (Auto) 0.0 Abs Immat Gran (auto) 0.11 H Absolute Neuts (auto) 8.5 H Absolute Nucleated RBC 0.000 Nucleated RBC % (auto) 0.0 VBG pH VBG pCO2 VBG pO2 VBG HCO3 VBG O2 Saturation VBG Base Excess Sodium 124 L Potassium 3.5 Chloride 92 L Carbon Dioxide 14 L Anion Gap 22 H BUN 83 H Creatinine 2.62 H Estim Creat Clear Calc 16.3 Estimated GFR 18 POC Glucose 105 Random Glucose 93 Calcium 8.0 L Phosphorus 7.0 H Magnesium 1.8 Albumin 3.3 L Blood Type A Positive Antibody Screen NEGATIVE Crossmatch See Detail 05/31/24 04:49 WBC RBC Hgb Hct MCV MCH MCHC RDW Plt Count MPV Immature Gran % (Auto) Neut % (Auto) Lymph % (Auto) [place] % (Auto) Eos % (Auto) Baso % (Auto) Lymph # (Auto) [place] # (Auto) Eos # (Auto) Baso # (Auto) Abs Immat Gran (auto) Absolute Neuts (auto) Absolute Nucleated RBC Nucleated RBC % (auto) VBG pH 7.36 VBG pCO2 28 VBG pO2 52 VBG HCO3 16 L VBG O2 Saturation 81.0 VBG Base Excess -7.7 Sodium Potassium Chloride Carbon Dioxide Anion Gap BUN Creatinine Estim Creat Clear Calc Estimated GFR POC Glucose Random Glucose Calcium Phosphorus Magnesium Albumin Blood Type Antibody Screen Crossmatch Microbiology Microbiology Results: Microbiology 05/19/24 07:45 Blood - Venous Blood Culture - Final No growth after 5 days. 05/19/24 05:53 Blood - Venous Blood Culture - Final No growth after 5 days. 05/18/24 13:32 Blood - Venous Blood Culture - Final Pseudomonas aeruginosa 05/18/24 12:07 Blood - Venous Blood Culture - Final Pseudomonas aeruginosa 05/19/24 01:10 Sputum - Suctioned Gram Stain - Final 05/19/24 01:10 Sputum - Suctioned Sputum Culture - Final Pseudomonas aeruginosa Staphylococcus aureus Progress Note: A&P Assessment and plan (1) Multi-organ failure with heart failure: Status: Acute (2) Other cirrhosis of liver: Status: Acute (3) DON (acute kidney injury): Status: Acute (4) Small cell lung cancer in adult: Status: Acute (5) Bacteremia due to Pseudomonas: Status: Acute (6) COPD (chronic obstructive pulmonary disease): Status: Acute (7) Pseudomonas pneumonia: Status: Acute (8) Staphylococcal pneumonia: Status: Acute Plan Assessment: 73-year-old lady with underlying small-cell lung cancer on chemotherapy, CKD, cirrhosis, heart failure admitted with encephalopathy , pneumonia, and acute on chronic hypoxic respiratory failure requiring ventilatory support, now complicated by multiorgan failure Plan: Neuro: subacute encephalopathy likely septic in nature. Cardiac: Paroxysmal AFib. Underlying chronic diastolic dysfunction. Pulmonary: Acute on chronic hypoxic respiratory failure requiring ventilatory support likely as a combination pulmonary edema and pneumonia with underlying supplemental oxygen 2 L dependent COPD and small-cell lung cancer. Continue to titrate off ventilatory support as tolerated. Renal: Underlying chronic renal disease, worsening, with poor response to diuretic challenge, may require hemodialysis. Non oliguric. Continue to monitor renal indices and urine output. Endo: No acute issues. GI: No acute issues. Underlying history of non alcoholic cirrhosis. ID: Pseudomonas bacteremia and Pseudomonas/ staphylococcal pneumonia. Continue ciprofloxacin and Bactrim. Heme/Onc: pancytopenia, likely small-cell lung cancer /chemotherapy related. Transfuse to hemoglobin goal above 7. Psych: No acute issues. Miscellaneous: overall poor prognosis, discussions of goals of care are ongoing with the family with plans for comfort measures on 06/01/2024. Prophylaxis: Pneumatic compression, PPI Diet: tube feeds Critical care time spent: 45 minutes Quality Stroke Does the patient have a stroke diagnosis?: No VTE Prior VTE?: No VTE Risk Level:: Medical - moderate - high VTE Device Contraindication: N/A - Device Ordered VTE Drug Contraindication: Treatment Not Tolerated
[2024-05-31 12:18] LABS: Glucose, Whole Blood 105 mg/dL (60-115)
[2024-05-31] MEDS: propofoL 1,000 MG/100 ML VIAL 11.07 MG IVCONT ×2 (13:45→20:13)
--- NOTE | 2024-05-31 14:07 | MHC.CM.PN ---
Family to change goals of care to comfort focused on 06/01.
[2024-05-31 18:28] LABS: Glucose, Whole Blood 110 mg/dL (60-115)
--- NOTE | 2024-05-31 18:29 | PC.NURSE ---
ICU Day #: 13 Vent Day #: 13 Neuro:? Continues Sedated/intubated w. Propofol gtt per MAY , does not open eyes, does not track, does not follow commands, Flaccid extremities. (passive ROM performed).? Tolerated Sedation vacation and PSV trial? for approx 1 ? hour Now back on sedation and ACPC vent. Support. Cardiac: upon initial assessment? unsustain episodes of A fib with heart rate in the 120?s then returning to Sinus Rhythm,? levophed gtt per MAY, MAP goal >65.? generalized weeping edema. Dr. Alicea aware of the above vitals.? GI: Fecal management device in place, +bowel sounds, OGT in place, tolerating TF with no signs of intolerance, POC Q6hr. : Henderson in place, patent /draining. Skin: Impaired skin integrity - see skin assessment (repositioning maintained)? Infectious: On Vancomyacyn, Ciprofloxacin and Bactrim ?Lines: Access Implanted port to right chest, peripheral IVs
[2024-05-31 20:19] LABS: Hematocrit 22.2 % (37.0-47.0); Hemoglobin 7.8 g/dl (12.0-16.0); Mean Corpuscular HGB Conc 35.1 g/dl (31.0-35.0); Mean Corpuscular Hemoglobin 29.1 pg (27.0-33.0); Mean Corpuscular Volume 82.8 fL (80.0-98.0); Platelet Count 26 X10*3/uL (160-400); Red Blood Count 2.68 X10*6/uL (4.20-5.50); Red Cell Distribution Width 16.7 % (11.0-16.0); White Blood Count 7.8 X10*3/uL (4.8-10.8)
[2024-05-31 20:34] LABS: Anion Gap 21 (12-20); Blood Urea Nitrogen 85 mg/dL (9-16); Calcium 7.6 mg/dL (8.4-10.2); Carbon Dioxide 15 mmol/L (22-29); Chloride 91 mmol/L (96-108); Creatinine Clr Calc Pharmacy 17.3; Estimated Glomerular Filt Rate 19; Glucose Random 102 mg/dL (60-115); Magnesium 1.8 mg/dL (1.6-2.6); Phosphorus 6.8 mg/dL (2.7-4.5); Potassium 3.3 mmol/L (3.3-5.1); Sodium 124 mmol/L (135-145)
[2024-05-31] MEDS: Potassium Chloride/H20 40 MEQ/100 ML PIGGYBACK 50 MEQ IV (21:13)
[2024-05-31] MEDS: Amiodarone/Dextrose 150 MG/100 ML PLAST..BAG 600 MG IV (23:24)
[2024-05-31] MEDS: Amiodarone HCL 900 MG in 0.9 % Sodium Chloride 500 ML 34.53 MG IVCONT (23:35)
[2024-06-01] VITALS (42 sets, daily range): BP systolic 88–136; BP diastolic 43–73; PULSE 74–107; RESP 20–37; TEMP 34.7–38.7; O2SAT 91–99; BMI 32.4
[2024-06-01] LABS: Glucose, Whole Blood 136 mg/dL (60-115)
[2024-06-01] MEDS: fentaNYL citrate/PF 100 MCG/2 ML VIAL 50 MCG IVPUSH (01:47)
[2024-06-01] MEDS: propofoL 1,000 MG/100 ML VIAL 11.07 MG IVCONT ×3 (02:55→17:23)
[2024-06-01] MEDS: Norepinephrine Bitartrate/D5W 8 MG/250 ML PLAST..BAG 5.77 MG IVCONT (04:35)
[2024-06-01 05:50] LABS: VBG Base Excess -8.2 mmol/L; VBG HCO3 15 mmol/L (22-26); VBG pCO2 24 mmHg; VBG pH 7.39 (7.32-7.43); VBG pO2 45 mmHg
[2024-06-01 05:52] LABS: MANUAL DIFF FLAG NO
[2024-06-01 05:54] LABS: Venous Blood Gas Refer to POC result
[2024-06-01 06:10] LABS: Alanine Aminotransferase 20 U/L (0-31); Albumin Level 3.2 g/dL (3.5-5.0); Alkaline Phosphatase 151 U/L (39-117); Anion Gap 22 (12-20); Aspartate Amino Transferase 77 U/L (5-31); Bilirubin Total 3.2 mg/dL (0.0-1.0); Blood Urea Nitrogen 90 mg/dL (9-16); Calcium 7.9 mg/dL (8.4-10.2); Carbon Dioxide 14 mmol/L (22-29); Chloride 92 mmol/L (96-108); Creatinine Clr Calc Pharmacy 15.8; Estimated Glomerular Filt Rate 17; Glucose Random 109 mg/dL (60-115); Magnesium 1.7 mg/dL (1.6-2.6); Phosphorus 6.7 mg/dL (2.7-4.5); Potassium 3.9 mmol/L (3.3-5.1); Sodium 124 mmol/L (135-145); Total Protein 6.2 g/dL (6.5-8.0)
[2024-06-01 06:11] LABS: Basophils Percent Auto 0.3 % (0-2); Eosinophils Percent Auto 0.3 % (0-4); Hematocrit 23.2 % (37.0-47.0); Hemoglobin 8.1 g/dl (12.0-16.0); Imm Gran Abs Auto 0.09 X10*3/uL (0.00-0.03); Lymphocytes Absolute Auto 0.5 X10*3/uL (1.2-4.9); Lymphocytes Percent Auto 5.8 % (20-40); Mean Corpuscular HGB Conc 34.9 g/dl (31.0-35.0); Mean Corpuscular Hemoglobin 28.8 pg (27.0-33.0); Mean Corpuscular Volume 82.6 fL (80.0-98.0); Mean Platelet Volume 13.8 fL (9.4-12.3); Monocytes Absolute Auto 0.8 X10*3/uL (0.1-1.2); Monocytes Percent Auto 8.9 % (2-11); Neutrophils Absolute Auto 7.4 x10*3/uL (2.0-8.3); Neutrophils Percent Auto 83.7 % (45-73); Red Blood Count 2.81 X10*6/uL (4.20-5.50); Red Cell Distribution Width 16.3 % (11.0-16.0); White Blood Count 8.9 X10*3/uL (4.8-10.8)
[2024-06-01 06:12] LABS: Platelet Count 31 X10*3/uL (160-400)
[2024-06-01] MEDS: Chlorhexidine Gluc Oral Rinse 15 ML MOUTHWASH BUCCAL ×3 (08:50→20:05)
[2024-06-01] MEDS: Famotidine/PF 20 MG/2 ML VIAL IVPUSH (08:50)
[2024-06-01] MEDS: 0.9 % Sodium Chloride Flush 3 ML SYRINGE IVFLUSH ×3 (08:50→15:17)
[2024-06-01] MEDS: vancomycin HCL Oral Solution 125 MG/5 ML SOLN.RECON PO (08:50)
[2024-06-01] MEDS: Albuterol/Iprat 2.5/0.5MG 3 ML AMPUL.NEB INHALE ×3 (10:21→19:32)
[2024-06-01] MEDS: Bumetanide 25 MG in Container,Empty 0 ML IVCONT (10:30)
--- NOTE | 2024-06-01 10:46 | MHC.CLN ---
Addendum entered by Sana Hill, ATTILA 06/01/24 14:41: NEPRO TUBE FEEDING IS UNAVAILABLE IN FACILITY RECOMMEND SWITCHING FORMULA TO GLUCERNA AT MAX GOAL RATE 40ML/HR TO PROVIDE 960KCALS (1252KCALS WITH SEDATION; 29KCALS/KG), 40G PROTEIN (.9G/KG), 819ML FREE WATER FROM FORMULA CONTINUE TO HOLD FREE WATER FLUSHES Original Note: F/U PT REMAINS INTUBATED AND SEDATED DISCUSSED AT ROUNDS WITH MD DIAL DIRECTOR OF SALES SUPPORT TO START TODAY CONTINUE NEPRO TF AT MAX GOAL RATE 25ML/HR PROVIDES 1080KCALS (1372 KCALS WITH SEDATION; 28.5ML/KG), 49G PROTEIN (1.0G/KG), 436ML WATER FROM FORMULA HOLD WATER FLUSHES CONTINUE TO MONITOR TOLERANCE AND LYTES FOLLOWING WITH TEAM
[2024-06-01 11:30] LABS: Glucose, Whole Blood 107 mg/dL (60-115)
--- NOTE | 2024-06-01 14:44 | MHC.CM.PN ---
PER MD ROUNDS, PT REMAINS ON VENTILATORY SUPPORT/PRESSORS. MD TO HAVE DISCUSSION WITH FAMILY REGARDING GOC. [facility] UPDATED VIA [facility]. CM WILL CONTINUE TO FOLLOW.
[2024-06-01] MEDS: Amiodarone HCL 900 MG in 0.9 % Sodium Chloride 500 ML 17.27 MG IVCONT (15:16)
[2024-06-01] MEDS: Acetaminophen 325 MG TABLET 650 MG PO (15:48)
--- NOTE | 2024-06-01 17:00 | P.PNCC_ITS ---
Subjective Subjective Date of Service: 06/01/24 Critical Care Time (minutes): 35 Comment: No new events Continues to be on ventilator support Propofol for sedation Levophed for vasopressor support Physical Exam 2 Vital Signs: Vital Signs: Last Vital Signs Temp 101.7 F H 06/01/24 16:00 Pulse 87 06/01/24 16:15 Resp 36 H 06/01/24 16:00 BP 90/48 L 06/01/24 16:15 Pulse Ox 95 06/01/24 16:00 O2 Del Method Mechanical Ventil ation 06/01/24 16:00 O2 Flow Rate 50 05/23/24 15:00 FiO2 40 06/01/24 16:00 Oxygen Flow Rate 2 05/18/24 11:16 BMI result Body Mass Index 32.4 General: In somewhat acute distress, ill appearing and tired appearing Nutritional Appearance: well nourished and overweight Eyes: appearance normal, both eyes and all related structures; Alignment and Position: alignment normal and position normal Neck: No lymphadenopathy, no thyromegaly Resp: bilateral air entry equal, bilateral crackles heard Cardio: Regular rate, regular rhythm; Heart sounds: S1 normal heart sound present and S2 normal heart sound present, edema present GI: soft, nontender, no guarding, no hepatosplenomegaly : bladder normal to inspection, bladder normal to palpation, no renal angle tenderness Skin: no rashes or lesions noted and elasticity normal Neuro: Unable to perform a detailed neuro exam due to sedation Objective Data Labs 06/01/24 05:37 06/01/24 05:37 Labs: Laboratory Results - last 24 hr 05/31/24 05/31/24 05/31/24 18:23 19:50 23:57 WBC 7.8 RBC 2.68 L Hgb 7.8 L Hct 22.2 L MCV 82.8 MCH 29.1 MCHC 35.1 H RDW 16.7 H Plt Count 26 L MPV Not Reportable Immature Gran % (Auto) Neut % (Auto) Lymph % (Auto) [place] % (Auto) Eos % (Auto) Baso % (Auto) Lymph # (Auto) [place] # (Auto) Eos # (Auto) Baso # (Auto) Abs Immat Gran (auto) Absolute Neuts (auto) Absolute Nucleated RBC 0.000 Nucleated RBC % (auto) 0.0 VBG pH VBG pCO2 VBG pO2 VBG HCO3 VBG O2 Saturation VBG Base Excess Sodium 124 L Potassium 3.3 Chloride 91 L Carbon Dioxide 15 L Anion Gap 21 H BUN 85 H Creatinine 2.47 H Estim Creat Clear Calc 17.3 Estimated GFR 19 POC Glucose 110 136 H Random Glucose 102 Calcium 7.6 L Phosphorus 6.8 H Magnesium 1.8 Total Bilirubin AST ALT Alkaline Phosphatase Total Protein Albumin 06/01/24 06/01/24 06/01/24 05:37 05:44 11:25 WBC 8.9 RBC 2.81 L Hgb 8.1 L Hct 23.2 L MCV 82.6 MCH 28.8 MCHC 34.9 RDW 16.3 H Plt Count 31 L MPV 13.8 H Immature Gran % (Auto) 1.0 H Neut % (Auto) 83.7 H Lymph % (Auto) 5.8 L [place] % (Auto) 8.9 Eos % (Auto) 0.3 Baso % (Auto) 0.3 Lymph # (Auto) 0.5 L [place] # (Auto) 0.8 Eos # (Auto) 0.0 Baso # (Auto) 0.0 Abs Immat Gran (auto) 0.09 H Absolute Neuts (auto) 7.4 Absolute Nucleated RBC 0.000 Nucleated RBC % (auto) 0.0 VBG pH 7.39 VBG pCO2 24 VBG pO2 45 VBG HCO3 15 L VBG O2 Saturation 75.0 VBG Base Excess -8.2 Sodium 124 L Potassium 3.9 Chloride 92 L Carbon Dioxide 14 L Anion Gap 22 H BUN 90 H Creatinine 2.69 H Estim Creat Clear Calc 15.8 Estimated GFR 17 POC Glucose 107 Random Glucose 109 Calcium 7.9 L Phosphorus 6.7 H Magnesium 1.7 Total Bilirubin 3.2 H AST 77 H ALT 20 Alkaline Phosphatase 151 H Total Protein 6.2 L Albumin 3.2 L Microbiology Microbiology Results: Microbiology 05/19/24 07:45 Blood - Venous Blood Culture - Final No growth after 5 days. 05/19/24 05:53 Blood - Venous Blood Culture - Final No growth after 5 days. 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: Status: Acute (6) Small cell carcinoma of lung: Status: Acute (7) Bacteremia due to Pseudomonas: Status: Acute (8) COPD (chronic obstructive pulmonary disease): Status: Acute (9) Supplemental oxygen dependent: Status: Acute (10) Pneumonia: Status: Acute (11) Acute and chronic respiratory failure: Status: Acute (12) Pseudomonas pneumonia: Status: Acute (13) Staphylococcal pneumonia: Status: Acute Plan 73-year-old lady with underlying 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 Hospital course significant for progressive respiratory failure requiring intubation in 05/19/2024, Pseudomonas bacteremia, further deterioration of renal function resulting in anasarca Neuro: Acute encephalopathy possibly due to metabolic encephalopathy On propofol for sedation, as needed fentanyl for analgesia Close neurological status monitoring in the ICU every hour Cardiac: Cardiogenic Shock: Possibly secondary to positive pressure ventilation On Levophed support, titrate Levophed to keep map above 65 mm Hg on bumex drip due to edema Atrial fibrillation: on amio for rhythm control, currently in sinus rhythm Respiratory: Acute hypoxemic respiratory failure due to bacterial pneumonia with underlying COPD and small-cell lung cancer Currently on ventilator support On PRVC mode FiO2 40%, PEEP 5, TV 360, RR 20, unable to extubate as patient is failing weaning trials Peak pressures and plateau pressures are under the curve Ventilator management bundle with head end elevation, aspiration precaution, chlorhexidine mouthwash, daily awakening trials, daily spontaneous breathing trials GI: Continue tube feeds Has underlying nonalcoholic cirrhosis Renal: Acute on chronic kidney injury possibly secondary to ATN on top of chronic kidney disease Baseline creatinine normal, creatinine today is 2.7 We will closely monitor I's and O's Avoid nephrotoxic medications Heme: Chronic anemia, closely monitor H&H, transfuse for hemoglobin less than 7 grams/deciliter Endocrine: Blood sugars under control Sliding scale insulin as needed Infectious disease: Blood cultures positive for Pseudomonas Sputum cultures positive for Pseudomonas and staph received IV vancomycin, switched to ciprofloxacin ending on 06/01/2024, Bactrim on 05/29/2024 C.diff: conitnue PO vanc Musculoskeletal: Decubitus ulcer prevention protocol Lines: peripheral Prophylaxis: heparin, pantoprazole Quality Stroke Does the patient have a stroke diagnosis?: No VTE Prior VTE?: No VTE Risk Level:: Medical - moderate - high VTE Device Contraindication: N/A - Device Ordered VTE Drug Contraindication: Treatment Not Tolerated
[2024-06-01 17:38] LABS: Glucose, Whole Blood 93 mg/dL (60-115)
--- NOTE | 2024-06-01 18:31 | PC.NURSE ---
Assumed care at 0700- pt. remains mechanically vented and sedated. No sedation vacation performed per MD- propofol gtt running per MAY. Pt. toleratingt PC vent settings- see vent assessment. Pt. SR on tele, HR 70s-90s, Amio gtt remains running per MAY. MAPs >65 with levophed gtt titrated per MAY. Pt. with generalize pitting/weeping edema. OGT patent, TF product changed per dietary- pt. currently receiving glucerna @40cc/hr, no s/s of TF intolerance. Fecal management system remains in place, patent, draining dark brown liquid stool. Henderson remains in place, draining bright yellow urine- pt. remains on bumex gtt per MAY. Tmax 101.7- MD aware, PRN tylenol given per MAY. Q2 repositioning and oral care performed, hovermat system in place. HCP at bedside, updated by this RN and MD. Plan of care ongoing.
[2024-06-02] VITALS (48 sets, daily range): BP systolic 80–126; BP diastolic 37–63; PULSE 79–124; RESP 21–36; TEMP 35–38.5; O2SAT 91–98; BMI 33.4
[2024-06-02 00:24] LABS: Glucose, Whole Blood 90 mg/dL (60-115)
[2024-06-02] MEDS: 0.9 % Sodium Chloride Flush 3 ML SYRINGE IVFLUSH ×4 (00:56→20:53)
[2024-06-02] MEDS: fentaNYL citrate/PF 100 MCG/2 ML VIAL 50 MCG IVPUSH (02:01)
[2024-06-02] MEDS: propofoL 1,000 MG/100 ML VIAL 11.07 MG IVCONT ×3 (02:28→16:53)
[2024-06-02 04:58] LABS: VBG Base Excess -10.4 mmol/L; VBG HCO3 13 mmol/L (22-26); VBG pCO2 25 mmHg; VBG pH 7.34 (7.32-7.43); VBG pO2 44 mmHg
[2024-06-02 05:06] LABS: Venous Blood Gas Refer to POC result
[2024-06-02 05:14] LABS: Hematocrit 21.2 % (37.0-47.0); Hemoglobin 7.2 g/dl (12.0-16.0); Mean Corpuscular Hemoglobin 28.7 pg (27.0-33.0); Mean Corpuscular Volume 84.5 fL (80.0-98.0); Mean Platelet Volume 12.9 fL (9.4-12.3); Red Blood Count 2.51 X10*6/uL (4.20-5.50); Red Cell Distribution Width 16.8 % (11.0-16.0); White Blood Count 8.1 X10*3/uL (4.8-10.8)
[2024-06-02 05:27] LABS: Platelet Count 30 X10*3/uL (160-400)
[2024-06-02 05:34] LABS: Alanine Aminotransferase 23 U/L (0-31); Albumin Level 2.8 g/dL (3.5-5.0); Anion Gap 21 (12-20); Aspartate Amino Transferase 101 U/L (5-31); Bilirubin Total 3.4 mg/dL (0.0-1.0); Blood Urea Nitrogen 98 mg/dL (9-16); Calcium 7.7 mg/dL (8.4-10.2); Carbon Dioxide 13 mmol/L (22-29); Chloride 93 mmol/L (96-108); Creatinine Clr Calc Pharmacy 16.2; Estimated Glomerular Filt Rate 18; Glucose Random 99 mg/dL (60-115); Magnesium 1.7 mg/dL (1.6-2.6); Phosphorus 6.8 mg/dL (2.7-4.5); Potassium 3.7 mmol/L (3.3-5.1); Sodium 123 mmol/L (135-145); Total Protein 5.7 g/dL (6.5-8.0)
[2024-06-02 05:40] LABS: Band Neutrophils Percent 11 % (3-5); Eosinophils Absolute Manual 0.1 X10*3/uL (0.0-0.4); Eosinophils Percent Manual 1 % (0-4); Lymphocytes Absolute Manual 0.3 X10*3/uL (1.2-4.9); Lymphocytes Percent Manual 4 % (20-40); Metamyelocytes Absolute 0.1 X10*3/uL; Metamyelocytes Percent 1 %; Monocytes Absolute Manual 0.3 X10*3/uL (0.1-1.2); Monocytes Percent Manual 4 % (2-11); Neutrophils Absolute Manual 7.3 X10*3/uL (2.0-8.3); Neutrophils Percent Manual 79 % (45-73)
[2024-06-02 05:42] LABS: Dohle Bodies PRESENT; Macrocytosis 1+ (5-14) /OIF; Microcytosis 1+ (5-14) /OIF; Ovalocytes 1+ (5-14) /OIF; RBC Morphology NOTED; Toxic Granulation PRESENT; Toxic Vacuolation PRESENT
[2024-06-02 05:43] LABS: Large Platelet PRESENT; Platelet Estimate DECREASED (NORMAL); Platelet Morphology Comment NOTED
[2024-06-02 05:44] LABS: Alkaline Phosphatase 141 U/L (39-117); Polychromasia 1+ (0-2) /OIF; Tear Drop Cells 1+ (0-2) /OIF
[2024-06-02 05:45] LABS: Burr Cells 3+ (>5) /OIF
--- NOTE | 2024-06-02 06:09 | PC.NURSE ---
Patient remains intubated and sedated. Propofol gtt running per MAY. RASS -4 for vent synchrony. SR on tele, HR 70s-80s, amio gtt running per MAY. Levophed gtt running per MAY. Lung sounds coarse and rhonchorous, see vent assessment. TF infusing at goal. FMS in place and patent, draining liquid dark green stool. Henderson catheter in place draining clear yellow urine with sediment, UOP approx 25-50mL/hr. Bumex gtt running per MAY. Patient is profoundly edematous with anasarca and weeping to all extremities. Skin tears to LUE and RUE wrapped with?xeroform and gauze, DTI to coccyx with maceration, triad applied and patient repositioned Q2HR. Bed locked in lowest position, bed alarm on.?
[2024-06-02] MEDS: Albuterol/Iprat 2.5/0.5MG 3 ML AMPUL.NEB INHALE ×3 (07:51→21:08)
[2024-06-02] MEDS: vancomycin HCL Oral Solution 125 MG/5 ML SOLN.RECON PO (08:03)
[2024-06-02] MEDS: Chlorhexidine Gluc Oral Rinse 15 ML MOUTHWASH BUCCAL ×3 (08:03→20:53)
[2024-06-02] MEDS: Famotidine/PF 20 MG/2 ML VIAL IVPUSH (08:03)
[2024-06-02] MEDS: Norepinephrine Bitartrate/D5W 8 MG/250 ML PLAST..BAG 12.68 MG IVCONT (08:19)
--- NOTE | 2024-06-02 09:00 | PM.CCPN ---
Subjective Subjective Date of Service: 06/02/24 Critical Care Time (minutes): 35 Comment: On ventilator support this morning Low-grade fever On Levophed for vasopressor support Physical Exam Vital Signs: Vital Signs: Last Vital Signs Temp 100.8 F H 06/02/24 08:00 Pulse 88 06/02/24 08:19 Resp 35 H 06/02/24 08:00 BP 103/49 L 06/02/24 08:19 Pulse Ox 94 06/02/24 08:00 O2 Del Method Mechanical Ventil ation 06/02/24 08:00 O2 Flow Rate 50 05/23/24 15:00 FiO2 40 06/02/24 08:00 Oxygen Flow Rate 2 05/18/24 11:16 BMI result Body Mass Index 33.4 General: Elderly lady who is chronically ill and tired appearing in acute distress lying unresponsive in the bed connected to the ventilator Nutritional Appearance: well nourished and overweight Eyes: appearance normal, both eyes and all related structures; Alignment and Position: alignment normal and position normal Neck: No lymphadenopathy, no thyromegaly Resp: bilateral air entry equal, occasional added sounds present Cardio: Regular rate, regular rhythm; Heart sounds: S1 normal heart sound present and S2 normal heart sound present GI: soft, nontender, no guarding, no hepatosplenomegaly : bladder normal to inspection, bladder normal to palpation, no renal angle tenderness Skin: no rashes or lesions noted and elasticity normal Neuro: Unable to do a neuro examination as the patient is on propofol Objective Data Labs 06/02/24 04:50 06/02/24 04:50 Labs: Laboratory Results - last 24 hr 06/01/24 06/01/24 06/02/24 11:25 17:33 00:19 WBC RBC Hgb Hct MCV MCH MCHC RDW Plt Count MPV Immature Gran % (Auto) Neut % (Auto) Lymph % (Auto) [place] % (Auto) Eos % (Auto) Baso % (Auto) Lymph # (Auto) [place] # (Auto) Eos # (Auto) Baso # (Auto) Abs Immat Gran (auto) Absolute Neuts (auto) Absolute Nucleated RBC Nucleated RBC % (auto) Neutrophils % (Manual) Band Neutrophils % Lymphocytes % (Manual) Monocytes % (Manual) Eosinophils % (Manual) Metamyelocytes % Abs Neuts (Manual) Lymphocytes # (Manual) Monocytes # (Manual) Eosinophils # (Manual) Metamyelocytes # Toxic Granulation Toxic Vacuolation Dohle Bodies Platelet Estimate Large Platelets Plt Morphology Comment RBC Morphology Polychromasia Microcytosis Macrocytosis Tear Drop Cells Ovalocytes Tavo Cells VBG pH VBG pCO2 VBG pO2 VBG HCO3 VBG O2 Saturation VBG Base Excess Sodium Potassium Chloride Carbon Dioxide Anion Gap BUN Creatinine Estim Creat Clear Calc Estimated GFR POC Glucose 107 93 90 Random Glucose Calcium Phosphorus Magnesium Total Bilirubin AST ALT Alkaline Phosphatase Total Protein Albumin 06/02/24 06/02/24 04:50 04:53 WBC 8.1 RBC 2.51 L Hgb 7.2 L Hct 21.2 L MCV 84.5 MCH 28.7 MCHC 34.0 RDW 16.8 H Plt Count 30 L MPV 12.9 H Immature Gran % (Auto) Cancelled Neut % (Auto) Cancelled Lymph % (Auto) Cancelled [place] % (Auto) Cancelled Eos % (Auto) Cancelled Baso % (Auto) Cancelled Lymph # (Auto) Cancelled [place] # (Auto) Cancelled Eos # (Auto) Cancelled Baso # (Auto) Cancelled Abs Immat Gran (auto) Cancelled Absolute Neuts (auto) Cancelled Absolute Nucleated RBC 0.000 Nucleated RBC % (auto) 0.0 Neutrophils % (Manual) 79 H Band Neutrophils % 11 H Lymphocytes % (Manual) 4 L Monocytes % (Manual) 4 Eosinophils % (Manual) 1 Metamyelocytes % 1 Abs Neuts (Manual) 7.3 Lymphocytes # (Manual) 0.3 L Monocytes # (Manual) 0.3 Eosinophils # (Manual) 0.1 Metamyelocytes # 0.1 Toxic Granulation PRESENT Toxic Vacuolation PRESENT Dohle Bodies PRESENT Platelet Estimate DECREASED Large Platelets PRESENT Plt Morphology Comment NOTED RBC Morphology NOTED Polychromasia 1+ (0-2) Microcytosis 1+ (5-14) Macrocytosis 1+ (5-14) Tear Drop Cells 1+ (0-2) Ovalocytes 1+ (5-14) [place] Cells 3+ (>5) VBG pH 7.34 VBG pCO2 25 VBG pO2 44 VBG HCO3 13 L VBG O2 Saturation 73.0 VBG Base Excess -10.4 Sodium 123 L Potassium 3.7 Chloride 93 L Carbon Dioxide 13 L Anion Gap 21 H BUN 98 H Creatinine 2.63 H Estim Creat Clear Calc 16.2 Estimated GFR 18 POC Glucose Random Glucose 99 Calcium 7.7 L Phosphorus 6.8 H Magnesium 1.7 Total Bilirubin 3.4 H AST 101 H ALT 23 Alkaline Phosphatase 141 H Total Protein 5.7 L Albumin 2.8 L Microbiology Microbiology Results: Microbiology 05/19/24 07:45 Blood - Venous Blood Culture - Final No growth after 5 days. 05/19/24 05:53 Blood - Venous Blood Culture - Final No growth after 5 days. 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: Status: Acute (6) Bacteremia: Status: Acute (7) COPD (chronic obstructive pulmonary disease): Status: Acute (8) Supplemental oxygen dependent: Status: Acute (9) Pneumonia: Status: Acute (10) Acute and chronic respiratory failure: Status: Acute (11) Pseudomonas pneumonia: Status: Acute (12) Staphylococcal pneumonia: Status: Acute Plan 73-year-old lady with underlying 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 Hospital course significant for progressive respiratory failure requiring intubation in 05/19/2024, Pseudomonas bacteremia, further deterioration of renal function resulting in anasarca Neuro: Acute encephalopathy possibly due to metabolic encephalopathy On propofol for sedation, as needed fentanyl for analgesia Close neurological status monitoring in the ICU every hour Cardiac: Cardiogenic Shock: Possibly secondary to positive pressure ventilation On Levophed support, titrate Levophed to keep map above 65 mm Hg on bumex drip due to edema Atrial fibrillation: on amio for rhythm control, currently in sinus rhythm Respiratory: Acute hypoxemic respiratory failure due to bacterial pneumonia with underlying COPD and small-cell lung cancer Currently on ventilator support On PRVC mode FiO2 40%, PEEP 5, TV 360, RR 20, unable to extubate as patient is failing weaning trials due to tachypnea on weaning sedation. Peak pressures and plateau pressures are under the curve Ventilator management bundle with head end elevation, aspiration precaution, chlorhexidine mouthwash, daily awakening trials, daily spontaneous breathing trials GI: Continue tube feeds Has underlying nonalcoholic cirrhosis Renal: Acute on chronic kidney injury possibly secondary to ATN on top of chronic kidney disease Baseline creatinine normal, creatinine today is 2.7 We will closely monitor I's and O's Avoid nephrotoxic medications Acute hyperphosphatemia: secondary to tube feeds will monitor Chronic hyponatremia: secondary to cirrhotic physiology Heme: Chronic anemia, closely monitor H&H, transfuse for hemoglobin less than 7 grams/deciliter thrombocytopenia: secondary to cirrhotic physiology Endocrine: Blood sugars under control Sliding scale insulin as needed Infectious disease: Blood cultures positive for Pseudomonas Sputum cultures positive for Pseudomonas and staph received IV vancomycin, switched to ciprofloxacin ending on 06/01/2024, Bactrim on 05/29/2024 C.diff: conitnue PO vanc Musculoskeletal: Decubitus ulcer prevention protocol Lines: peripheral Prophylaxis: not on heparin due to low platelets, pantoprazole Quality Stroke Does the patient have a stroke diagnosis?: No VTE Prior VTE?: No VTE Risk Level:: Medical - moderate - high VTE Device Contraindication: N/A - Device Ordered VTE Drug Contraindication: Treatment Not Tolerated
[2024-06-02] MEDS: Bumetanide 25 MG in Container,Empty 0 ML IVCONT (10:28)
[2024-06-02 11:18] LABS: Glucose, Whole Blood 86 mg/dL (60-115)
[2024-06-02 13:18] LABS: Glucose, Whole Blood 91 mg/dL (60-115)
[2024-06-02] MEDS: Amiodarone HCL 900 MG in 0.9 % Sodium Chloride 500 ML 17.27 MG IVCONT (15:07)
--- NOTE | 2024-06-02 15:10 | MHC.CM.PN ---
Family not able to decide on goals of care for 06/01: have spoken w/MD about extremely poor prognosis and worsening decline: plan is for extubation on 06/03 with a transition to comfort care. CM to follow
[2024-06-02 18:01] LABS: Glucose, Whole Blood 90 mg/dL (60-115)
--- NOTE | 2024-06-02 18:08 | PC.NURSE ---
Assumed care at 0700. Pt mechanically vented. Pt on propofol, amio drips. TF running at goal rate, pt tolerating. Pt?s o2 sat decreased to low 80s approx 1500. Pt suctioned, lavaged, bagged; peep adjusted to 8. Pt o2 sat in low 90s. At approx 1410, pt converted to afib w HR 110-130; MD aware. Per MD, plan is to be transitioned to comfort care at some point tomorrow, 06/03/24. See MAR and assorted assessments for details.
[2024-06-02] MEDS: Norepinephrine Bitartrate/D5W 8 MG/250 ML PLAST..BAG 21.91 MG IVCONT (20:51)
[2024-06-03] VITALS (15 sets, daily range): BP systolic 59–118; BP diastolic 29–58; PULSE 58–108; RESP 20–27; TEMP 35–37.5; O2SAT 94–100; BMI 34.4
[2024-06-03] MEDS: Dextrose 50 % 25 GM/50 ML SYRINGE IVPUSH ×2 (00:04→05:36)
[2024-06-03] MEDS: propofoL 1,000 MG/100 ML VIAL 11.07 MG IVCONT (02:15)
[2024-06-03] MEDS: Norepinephrine Bitartrate/D5W 8 MG/250 ML PLAST..BAG 57.66 MG IVCONT (04:01)
[2024-06-03 04:48] LABS: Glucose, Whole Blood 55 mg/dL (60-115)
[2024-06-03 04:48] LABS: Glucose, Whole Blood 135 mg/dL (60-115)
[2024-06-03] MEDS: Amiodarone HCL 150 MG/3 ML VIAL 300 MG IV (06:00)
--- NOTE | 2024-06-03 06:04 | W.MHC.ACPN ---
Advanced Care Planning Note Advanced Care Planning Note Discussed with: family member(s) (son Ross) Time spent (in minutes): 20 Narrative: At 04:05, nursing personnel alerted me that the patient's heart rate dropped into the 30s and maintained there for about 5 minutes, her blood pressure also deteriorated despite of Levophed. Amiodarone was stopped, urine output has been 180cc for the past 24 hours. She is not producing any urine, Bumex stopped. Levophed increased. Patient continues to look massively anasarcic; propofol was decreased. Patient remains unresponsive even to painful stimuli. Pupils are dilated at 5 mm bilaterally in not reactive. Eyes are glossy. A 04:45 am I discussed the above-mentioned scenario with the patient's son, my impression is that the patient will deteriorate before he is able to come later on during the day as planned to make a terminal extubation and make the patient comfortable. We had a lengthy discussion about current clinical situation and the possibility that what we are doing is more detrimental than beneficial to the patient. He agrees to come into the hospital. In the meantime we will continue to support her as much as possible. There will however not be any further escalation of her care, no resuscitation, we will not add a 2nd vasopressor if this becomes needed as it will not change her management. The patient's son agrees. Critical care time used for critical evaluation of this patient, diagnosis, treatment and coordination of care, review her records and documentation TOTAL CRITICAL CARE TIME 20 MIN . discussion and coordination with consultants, completely separate from any procedures performed. . Patient's care was discussed in detail with Dr. Miguel. He is aware of all the above as well as the plan of care for this patient.. 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
--- NOTE | 2024-06-03 06:10 | PM.CCN ---
Critical Care Event Note Summary Date of Service: 06/03/24 Code activated: No Narrative: This case had a high probability of a clinically significant, sudden, or life threatening deterioration of this patient's condition which required my full and direct attention, intervention and personal management. Critical Care Time (minutes): 15 Comment: 05:55 the patient continues to be hypotensive, developed V-tach without a palpable pulse. ACLS protocol started for attempted chemical resuscitation even though she is DNR until her son gets here, amiodarone 300 mg IV push was administered. While doing the above, the patient's son arrived and is now at bedside. Suddenly the patient went into asystole. She has no pulse, no apical heartbeat. No further force for resuscitation will be attempted at this point. The son is okay with it. At 0600 asystole was noted on the monitor. At this time, the patient has no heartbeat, no palpable pulses, pupils are fixed at 5 mm bilaterally, overall that anterior chamber and cornea of the eyes appear glossy. There is no corneal reflexes bilaterally, capillary refill of the fingers and toes is significantly delayed. Patient was pronounced by me and time of was at 0602 am. My condolences were expressed to the patient's son. Certificate Completed. Organ Center Called by RN. Total time spent with the patient planning, coordinating, insuring a natural, non suffering and humane passing as well as pronouncement evaluation, and this documentation was 15 minutes. Case was discussed in detail with Dr. Miguel
[2024-06-03 06:24] LABS: Glucose, Whole Blood 40 mg/dL (60-115)
--- NOTE | 2024-06-03 06:43 | PM.DDS ---
Discharge Sum: Prov Provider Primary care physician: Kranthi Macdonald MD Admitting clinician: Lorie Lepe Attending physician on admission: Rebecca Doyle Consults: 05/18/24 15:39 Consult to Hematology / Oncology Routine Consulting Provider: [facility] Oncology/Hematology Reason for consultation: small cell lung ca. 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: (6) Bacteremia: (7) COPD (chronic obstructive pulmonary disease): (8) Supplemental oxygen dependent: (9) Pneumonia: (10) Acute and chronic respiratory failure: (11) Pseudomonas pneumonia: (12) Staphylococcal pneumonia: Discharge Sum: Summary Date and Time Date of admission: 05/18/24 18:44 Date of : 06/03/24 Time of : 06:02 Summary Details: ADMISSION/DISCHARGE DIAGNOSIS: ACUTE ON CHRONIC HYPOXIC RESPIRATORY FAILURE LEFT PERIHILAR PNEUMONIA METABOLIC ENCEPHALOPATHY SMALL-CELL LUNG CANCER NO ALCOHOLIC LIVER CIRRHOSIS ACUTE ON CHRONIC KIDNEY DISEASE STAGE 4 NEUTROPENIA AND BANDEMIA MALIGNANCY RELATED PANCYTOPENIA MULTI ORGAN FAILURE V-TACH SEPTIC SHOCK PRESSURE DECUBITUS ULCER PRESENT ON ADMISSION ATRIAL FIBRILLATION WITH RAPID VENTRICULAR RESPONSE COMORBIDITIES: DIABETES GENERALIZED WEAKNESS CIRRHOSIS OF THE LIVER CVA HEP C TOBACCO ABUSE ASTHMA IBS BREAST CANCER HYPERTENSION HYPERLIPIDEMIA PANCYTOPENIA CHRONIC DIARRHEA CHRONIC KIDNEY DISEASE STAGE 3-4 HISTORY OF HERNIA REPAIR HISTORY OF PARTIAL MASTECTOMY AND RADIATION TOTAL KNEE REPLACEMENT C DIFF COLITIS Time of : 0602 am today 06/03/2024 Cause of : Cardiac Arrest post Vtach in the setting of Multi organ failure 05:55 the patient continues to be hypotensive, developed V-tach without a palpable pulse. ACLS protocol started for attempted chemical resuscitation even though she is DNR until her son gets here, amiodarone 300 mg IV push was administered. While doing the above, the patient's son arrived and is now at bedside. Suddenly the patient went into asystole. She has no pulse, no apical heartbeat. No further force for resuscitation will be attempted at this point. The son is okay with it. At 0600 asystole was noted on the monitor. At this time, the patient has no heartbeat, no palpable pulses, pupils are fixed at 5 mm bilaterally, overall that anterior chamber and cornea of the eyes appear glossy. There is no corneal reflexes bilaterally, capillary refill of the fingers and toes is significantly delayed. Patient was pronounced by me and time of was at 0602 am. My condolences were expressed to the patient's son. Certificate Completed. Organ Center Called by RN. HPI/hospital course: 73-year-old female admitted to internal medicine services on 05/18/2024 with a past medical history significant for COPD unspecified, CKD stage 4, nonalcoholic cirrhosis, hyperlipidemia breast cancer s/p partial mastectomy and radiation, small-cell lung cancer being treated with chemotherapy by Dr. Jesus, chronic hypoxemic respiratory failure, and chronic anemia and HTN, who presented to the ED today with confusion and lethargy. She presented from a SNF and reportedly has been eating very little and not taking the PO vancomycin she has been on (dx 03/21- on taper no longer having diarrhea). She has been less responsive that usual, markedly different from baseline which is A&Ox4. No fevers reported or worsening hypoxia. The patient is unable to provider history. She was last given her chemo, Lurbinectin, on 05/07. On arrival blood pressure is soft at 93/51 which had improved to 1 14/60 with IV fluids. Vitals otherwise stable. She remains on baseline oxygen, 2 L via nasal cannula. She is pancytopenic with WBC 2.8, H/H 8.4/27.0%, platelets 45. Bands 16%. Renal function consistent with baseline with creatinine 2.29. Electrolyte levels normal except for chloride 119, CO2 16. VBG with pH 7.37, pCO2 20, HCO3 12. Repeat pending. PT 20.0, INR 1.7. Initial troponin 74.7, repeat 63.8. CRP 22.71. BNP 712. Procalcitonin pending. Negative for COVID-19, RSV, influenza. CXR shows left lung perihilar consolidation consistent with pneumonia. EKG shows NSR with previously noted septal infarct. In the ED, has received 1 L IV LR, IV Zosyn, IV vancomycin. Patient was treated with vancomycin and Zosyn placed on DuoNe, Oncology consult. ?However on 05/19 2024, the patient developed hypotension, hypoxia and required emergent intubation, further treatment was provided per ICU protocol and patient's needs including antibiotic, vasopressor support among others.? On 05/20/2024, Dr. Osorio had met with the patient's son who at the time decided that no further escalation of care would be done including no tracheostomy and the possibility of comfort care was contemplated at the time.? She was made DNR but remained intubated. Patient had ongoing metabolic encephalopathy despite of performing neuro trials.? She was placed on propofol for sedation and fentanyl for analgesia with ongoing neurological monitoring.? Given her ongoing edema, a Bumex drip was placed but over time the patient became anuric.? She had also developed atrial fibrillation for which she was placed on amiodarone. ?She was given artificial nutrition via OG tube.? Her anemia remained stable with a hemoglobin above 7. At some point blood cultures were positive for Pseudomonas and she was treated appropriately with ciprofloxacin and Bactrim. ?Given her long history of C diff she was kept on p.o. vancomycin. ?Decubitus ulcer was care by protocol. ? Throughout the ICU stay, the patient continued to deteriorate her clinical state including significant diffuse edema, as well as poor lung function which did not allow extubation; patient failed weaning trials several times. ?Several discussions had taken place by other providers as detailed on their notes regarding the patient's clinical condition and goals of care.? It was planned for the patient to be transitioned to comfort care measures today 06/03/2024 after a terminal extubation plan for later on this morning. However as discussed above, the patient developed bradycardia, hypotension and subsequent episode of V-tach followed by a rapid cardiac arrest and asystole leading to the patient's . ?She had also been hypoglycemic but this was treated with amps of D50.? She was also on tube feeds. I pronounced this patient in the presence of her son at 06:02. Critical care time used for critical evaluation of this patient, diagnosis, treatment and coordination of care, review her records and documentation TOTAL CRITICAL CARE TIME 60 ??MIN . discussion and coordination with consultants, completely separate from any procedures performed. . Patient's care was discussed in detail with Dr. Miguel.? He is aware of all the above as well as the plan of care for this patient. Additional Data Confirmation of as documented by pronouncing clinician: no pulse, no respirations, no heart sounds and pupils fixed and dilated Family: at bedside Attending/PCP notified?: No Attending physician: Daniel Miguel MD Was code activated?: No sock lining examiner notified?: No Organ bank notified?: Yes Advance directives: Yes
--- NOTE | 2024-06-03 07:00 | PC.NURSE ---
Assumed care 1900 - pt intubated and sedated. On propofol, RASS -4 for vent synchrony - see MAR for titrations. On ACPC settings - see vent assessment. Afib/SR on tele, HR 60-110s. At 0000 poc 55 - PRN D50 administered with good effect. BRANDON Vega made aware.? UOP 0-5 ml/hr.? Around 0400 - pt BP 60-80s systolic, HR dropping?to 30s - not sustaining. BRANDON Vega to bedside. Bumex and Amiodarone gtt paused per BRANDON Vega. Levophed?titrated per provider - see MAR.? Around 0500 - MAPs <60, Levophed titrated per provider. SR with bundle branch block on tele, HR 50s-60s. BRANDON Vega updated pt's son over the phone. Pt's son on his way to bedside. Orders to continue Levophed at current rate of 0.7 mcg/kg/min.? 0540 - Poc 40 - PRN D50 administered. 0555 - Rhythm?change, vtach on tele. No palpable pulse. Amiodarone?300 mg IVP ordered and administered and Amiodarone?gtt restarted per BRANDON. No effect on rhythm.? 0600 - Son at bedside 0602 - Pt asystole, pronounced?at 0602 by BRANDON Vega. NEDS notified - pt declined. Post mortem care complete.?
--- NOTE | 2024-06-03 07:07 | PC.NURSE ---
0708 patient's son Ross contacted to ask if any other family members would like to visit patient before care. Son states no other visitors planned. Ross states he will use [facility]. Nursing engine repair supervisor notified.
== END 2024-06-03 06:02 | disposition expired | DRG 870 ==
LOC: HO.ED 16:43 → HO.ICU 19:00
PROVIDERS: Internal Medicine Pulmonary Disease; Nurse Practitioner Family; Physician Assistant; Physician Assistant Medical; Registered Nurse Community Health; Admitting Provider Internal Medicine Critical Care Medicine; Emergency Provider Emergency Medicine; PCP Internal Medicine; Responsible Provider Internal Medicine Critical Care Medicine; Visit Provider Internal Medicine Critical Care Medicine
DX: A41.9 Sepsis, unspecified organism (principal); D61.810 Antineoplastic chemotherapy induced pancytopenia; I50.33 Acute on chronic diastolic (congestive) heart failure; R65.21 Severe sepsis with septic shock; J96.21 Acute and chronic respiratory failure with hypoxia; G92.8 Other toxic encephalopathy; J15.1 Pneumonia due to Pseudomonas; J15.211 Pneumonia due to Methicillin susceptible Staphylococcus aureus; N17.0 Acute kidney failure with tubular necrosis; J81.0 Acute pulmonary edema; J44.0 Chronic obstructive pulmonary disease with (acute) lower respiratory infection; N18.4 Chronic kidney disease, stage 4 (severe); I13.0 Hypertensive heart and chronic kidney disease with heart failure and stage 1 through stage 4 chronic kidney disease, or unspecified chronic kidney disease; C77.8 Secondary and unspecified malignant neoplasm of lymph nodes of multiple regions; C34.12 Malignant neoplasm of upper lobe, left bronchus or lung; E87.1 Hypo-osmolality and hyponatremia; E11.22 Type 2 diabetes mellitus with diabetic chronic kidney disease; E11.649 Type 2 diabetes mellitus with hypoglycemia without coma; Z51.5 Encounter for palliative care; Z66 Do not resuscitate; L89.156 Pressure-induced deep tissue damage of sacral region; E78.5 Hyperlipidemia, unspecified; E87.5 Hyperkalemia; I48.0 Paroxysmal atrial fibrillation; Z85.3 Personal history of malignant neoplasm of breast; R57.0 Cardiogenic shock; E83.39 Other disorders of phosphorus metabolism; B19.20 Unspecified viral hepatitis C without hepatic coma; T45.1X5A Adverse effect of antineoplastic and immunosuppressive drugs, initial encounter; K74.60 Unspecified cirrhosis of liver; D63.1 Anemia in chronic kidney disease; Z99.81 Dependence on supplemental oxygen; Z20.822 Contact with and (suspected) exposure to COVID-19; Z87.891 Personal history of nicotine dependence; Z79.51 Long term (current) use of inhaled steroids; Z79.899 Other long term (current) drug therapy
CPT/HCPCS: 0241U; 36415; 71045; 80048; 80053; 80076; 80202; 82040; 82272; 82565; 82803; 82947; 83605; 83690; 83735; 83880; 84100; 84145; 84484; 85007; 85025; 85027; 85610; 86140; 86850; 86900; 86901; 86923; 87040; 87070; 87077; 87186; 87205; 87449; 87493; 87640; 87641; 87899; 93005; 94002; 94003; 94640; 94799; 99284; J0282; J0283; J0613; J0744; J1171; J1205; J1447; J1939; J1940; J2270; J2470; J2543; J2598; J2704; J3010; J3370; J3371; J3475; J3480; J7120; P9016; P9047; P9073

== ENCOUNTER → 2024-05-18 11:23 | Outpatient (BNV) | payer MEDICARE, SELFPAY | PROVIDERS: Emergency Provider Emergency Medicine; PCP Internal Medicine; Visit Provider Internal Medicine Critical Care Medicine | DX: J44.9 Chronic obstructive pulmonary disease, unspecified (principal); J96.20 Acute and chronic respiratory failure, unspecified whether with hypoxia or hypercapnia; C34.90 Malignant neoplasm of unspecified part of unspecified bronchus or lung; J18.9 Pneumonia, unspecified organism | CPT/HCPCS: 31500; 99291; 99497; 99499 ==

== ENCOUNTER → 2024-05-18 11:32 | Outpatient (BNV) | payer MEDICARE, SELFPAY | PROVIDERS: Admitting Provider Internal Medicine Critical Care Medicine; Emergency Provider Emergency Medicine; PCP Internal Medicine; Visit Provider Internal Medicine | DX: R94.31 Abnormal electrocardiogram [ECG] [EKG] (principal); R53.1 Weakness | CPT/HCPCS: 93010 ==

== ENCOUNTER → 2024-05-18 11:33 | Outpatient (BNV) | payer MEDICARE, SELFPAY | PROVIDERS: Emergency Provider Emergency Medicine; PCP Internal Medicine; Visit Provider Radiology Diagnostic Radiology | DX: R05.9 Cough, unspecified (principal) | CPT/HCPCS: 71045 ==

== ENCOUNTER 2024-05-18 18:44 | Outpatient (BNV) | payer MEDICARE, SELFPAY | END 2024-05-19 01:00 | PROVIDERS: Admitting Provider Internal Medicine Critical Care Medicine; Emergency Provider Emergency Medicine; PCP Internal Medicine; Visit Provider Radiology Diagnostic Radiology | DX: J96.01 Acute respiratory failure with hypoxia (principal) | CPT/HCPCS: 71045 ==

== ENCOUNTER 2024-05-18 18:44 | Outpatient (BNV) | payer MEDICARE, SELFPAY | END 2024-05-20 18:22 | PROVIDERS: Admitting Provider Internal Medicine Critical Care Medicine; Emergency Provider Emergency Medicine; PCP Internal Medicine; Visit Provider Internal Medicine | DX: I48.91 Unspecified atrial fibrillation (principal) | CPT/HCPCS: 93010 ==

== ENCOUNTER → 2024-05-18 18:44 | Outpatient (BNV) | payer MEDICARE, SELFPAY | PROVIDERS: Admitting Provider Internal Medicine Critical Care Medicine; Emergency Provider Emergency Medicine; PCP Internal Medicine; Visit Provider Physician Assistant | DX: J18.9 Pneumonia, unspecified organism (principal); G93.41 Metabolic encephalopathy | CPT/HCPCS: 99223 ==

== ENCOUNTER → 2024-05-18 18:44 | Outpatient (BNV) | payer MEDICARE, SELFPAY | PROVIDERS: Admitting Provider Internal Medicine Critical Care Medicine; Emergency Provider Emergency Medicine; PCP Internal Medicine; Visit Provider Internal Medicine Medical Oncology | DX: C34.90 Malignant neoplasm of unspecified part of unspecified bronchus or lung (principal) | CPT/HCPCS: 99222 ==

== ENCOUNTER → 2024-05-18 18:44 | Outpatient (BNV) | payer MEDICARE, SELFPAY | PROVIDERS: Admitting Provider Internal Medicine Critical Care Medicine; Emergency Provider Emergency Medicine; PCP Internal Medicine; Visit Provider Internal Medicine Pulmonary Disease | DX: J96.20 Acute and chronic respiratory failure, unspecified whether with hypoxia or hypercapnia (principal); N17.9 Acute kidney failure, unspecified; C34.90 Malignant neoplasm of unspecified part of unspecified bronchus or lung; J44.9 Chronic obstructive pulmonary disease, unspecified; K74.69 Other cirrhosis of liver; R78.81 Bacteremia; B96.5 Pseudomonas (aeruginosa) (mallei) (pseudomallei) as the cause of diseases classified elsewhere; J15.1 Pneumonia due to Pseudomonas; J15.20 Pneumonia due to staphylococcus, unspecified | CPT/HCPCS: 99291 ==